=== PATIENT | male | born 1960 | race Caucasian/White ===

== ENCOUNTER 2019-03-13 05:08 | Inpatient (IN) | payer OTHER, SELFPAY ==
[2019-03-13] VITALS (7 sets, daily range): BP systolic 140–175; BP diastolic 84–113; PULSE 55–85; RESP 16–22; TEMP 36.5–37.3; O2SAT 94–99; BMI 24.3; BMI 24.0; BMI 24.4
--- NOTE | 2019-03-13 05:11 | CT_ITS ---
STUDY: CT ABDOMEN AND PELVIS WITH CONTRAST REASON FOR EXAM: Male, 58 years old. Of abdominal pain RADIATION DOSAGE (If Supplied By Facility): CTDIvol = ( 8.82 ) mGy, DLP = ( 607.56 ) mGycm TECHNIQUE: Transaxial images were obtained from the dome of the diaphragm to the symphysis pubis without oral contrast. 100ML IV Isovue 300 was administered. Sagittal and coronal images were reconstructed. Individualized dose optimization techniques were used for this CT. COMPARISON: None. FINDINGS: The visualized lung bases are unremarkable. The visualized portions of the heart are within normal limits. Subcentimeter low-attenuation structure left hepatic lobe too small to characterize by CT criteria however statistically likely represents a cyst. Normal gallbladder and extrahepatic biliary system. Normal spleen. There is peripancreatic stranding and adjacent fluid identified. There is no rim-enhancing fluid collection. Pancreatic head appears prominent. There is no significant ductal dilatation. No pseudocysts identified. Normal bilateral adrenal glands. Normal right kidney. Normal left kidney. There is a small hiatal hernia. Mild bladder wall thickening. No bowel dilatation by CT criteria. Normal colon. The appendix is visualized and appears normal. There is diffuse atherosclerotic calcification of the abdominal aorta, without a demonstrated aneurysm. Normal inferior vena cava. Nonspecific subcentimeter short axis mesenteric and retroperitoneal lymph nodes. Normal urinary bladder. Prostate is heterogeneous and enlarged recommend correlation with PSA values and physical exam on a nonemergent basis. Small fat-containing inguinal hernias. Tiny fat-containing umbilical hernia. There are diffuse degenerative changes of the visualized lumbar spine. CT/Abdomen/Pelvis W IV Cont ONLY IMPRESSION: Pancreatic adjacent fluid and stranding. There is pancreatic edema. Recommend correlation with pancreatic laboratory values for acute pancreatitis. There is no rim-enhancing fluid collections identified. No pseudocysts are seen. Recommend follow-up to ensure resolution. The duodenum demonstrates some mild wall thickening likely reactive to BE associated inflammatory changes surrounding the pancreas. Other findings as above. Electronically Signed: Toño Yanez, at 5:55 EDT Tel , Service support ,
[2019-03-13] MEDS: HYDROmorphone 1 MG/ML Syringe IV ×10 (05:17→22:22)
[2019-03-13] MEDS: Ondansetron 4 MG/2 ML Vial IV ×2 (05:17→14:23)
[2019-03-13] MEDS: 0.9% Normal Saline 1,000 ML 125 ML IV (05:19)
[2019-03-13 05:26] LABS: Absolute Lymphocyte Count 4.83 X10^3/ul (0.83-4.51); Absolute Neutrophil Count 7.5 X10^3/uL (2.0-7.7); Basophil# 0.03 X10^3/uL; Basophil% 0.2 % (0-1); Eosinophil# 0.42 X10^3/uL; Eosinophils% 2.8 % (0-5); Hematocrit 50.8 % (40-54); Hemoglobin 17.2 g/dl (13.0-16.5); Lymphocyte # 4.83 X10^3/ul (4.0); Lymphocyte % 32.7 % (19-41); Mean Corp Hgb Conc 33.9 g/gl (32-36); Mean Corpuscular Hgb 30.4 pg (27.0-32.0); Mean Corpuscular Volume 89.8 fL (80-94); Mean Platelet Vol. 9.9 fl (6.2-12.0); Monocyte% 12.9 % (0-10); Neutrophil # 7.54 X10^3/uL (2.7-7.7); Neutrophil % 51.2 % (47-70); Platelet Count 220 K/mm3 (150-450); RBC Distribution Width CV 13.4 % (11.6-14.6); Red Blood Count 5.66 M/mm3 (4.6-6.2); White Blood Count 14.8 K/mm3 (4.4-11.0)
[2019-03-13 05:28] LABS: Differential Indicated SCAN CRITERIA MET; POSITIVE COUNT NO; POSITIVE DIFFERENTIAL YES; POSITIVE MORPHOLOGY NO
[2019-03-13 05:39] LABS: Anion Gap 8 (5-15); BUN 17 mg/dL (7-18); BUN/Creat Ratio 13.6 RATIO (10-20); Calcium,Total 8.7 mg/dL (8.5-10.1); Chloride 106 mmol/L (98-107); Creatinine, Serum 1.25 mg/dL (0.70-1.30); EST Glomerular Filtration Rate 63 mL/min (>60); Est Glom Filt Rate - Afr Amer 76 mL/min (>60); Estimated Creatinine Clearance 68.61 ml/min; Glucose 152 mg/dL (74-106); Potassium 3.5 mmol/L (3.5-5.1); Sodium Level 142 mmol/L (136-145)
[2019-03-13 05:54] LABS: Lactic Acid 3.4 mmol/L (0.4-2.0)
[2019-03-13 05:58] LABS: AST(SGOT) 23 U/L (15-37); Alanine Aminotransfer ALT/SGPT 41 U/L (16-61); Alkaline Phosphatase 95 U/L (45-117); Bilirubin, Direct 0.09 mg/dL (0.00-0.30); Globulin 3.7 g/dL (2.2-4.2); Protein, Total 7.7 g/dL (6.4-8.2)
--- NOTE | 2019-03-13 06:00 | ED.RN ---
CRITICAL LAB VALUE RECEIVED FROM LAB. LACTIC ACID 3.4. DR. RAMÍREZ NOTIFIED.
--- NOTE | 2019-03-13 06:15 | ED.VISSUMM ---
- ER Visit Summary Date of Service: 03/13/19 Chief Complaint: [Abdominal pain] History of Present Illness: The patient is a 58 M [since the emergency room with complaint of abdominal pain that started about an hour ago. Patient is in severe pain and has a hard time giving much history. Patient complains of nausea and few episodes of vomiting. Said no diarrhea. Denies fever. He is never had pain like this before. Patient describes a lot of bloating and pain that radiates to his back. He denies any pain going down his legs. He denies any fever. Patient has no medical history. He has had prior appendectomy. Patient is a smoker and drinks alcohol occasionally. He denies drink alcohol last night.] Physical Examination: [HEENT-PERRLA, EOMI. Cranial nerves II through XII grossly intact. TMs clear. Mucous membranes moist. No adenopathy. Cardiovascular-regular rate and rhythm without murmur or ectopy Lungs-clear to auscultation, chest wall stable without crepitus or subcu emphysema Abdomen-normoactive bowel sounds abdomen slightly distended. Exam difficult as patient really does not allow for a good abdominal exam. There is guarding. There is no rebound or rigidity. Extremities-intact ?4, normal range of motion, normal pulses, atraumatic] Test Results: [CBC with differential obtained showed a white count of 14.8, hemoglobin 17, hematocrit 51, platelets 220. Chemistries unremarkable. Lactate was elevated 3.4. CT scan of the abdomen pelvis showed acute pancreatitis.] Lipase was elevated at 58,000 Emergency Department Course and Treatment: [Patient was given IV fluids normal saline. Patient was medicated with Dilaudid and Zofran.] Treatment Plan: [Admit for fluids and pain management. Patient continues to complain of severe pain.] Disposition: [Admit] Impression: [Acute pancreatitis Intractable pain] This note was generated with [employer] dictation software. It may contain incorrect words, spelling, and punctuation that were not noted in review of the chart prior to signing ED Disposition - Plan for ED Patient: Referrals: Ziggy Smith MD [Primary Care Provider] -
[2019-03-13 06:27] LABS: Lipase 58008 U/L (73-393)
[2019-03-13] MEDS: 0.9% Normal Saline 1,000 ML 999 ML IV (06:40)
--- NOTE | 2019-03-13 07:24 | PCM.HP.STD ---
Problem List (1) Pancreatitis Status: Acute Qualifiers: Chronicity: acute Pancreatitis type: unspecified pancreatitis type Acute pancreatitis complication: no infection or necrosis Qualified Code(s): K85.90 - Acute pancreatitis without necrosis or infection, unspecified History of Present Illness Date of Admission: 03/13/19 Chief Complaint: abdominal pain The patient is a 58 year old M presents with acute abdominal pain. Abdominal pain is epigastric and began acutely around 330 to 4:00 AM today. Was very exquisite and patient presented to the emergency room. Patient had a lipase of 58,000, CAT scan that showed diffuse pancreatitis without any obvious gallstones. Patient received 4 mg of Dilaudid and still writhing in pain. Patient has never had pancreatitis before. Patient does drink alcohol and stated that he had about 5 or 6 drinks a few days ago. Denies any alcohol consumption last night. [] Past Medical History Allergies No Known Allergies Allergy (Verified 03/13/19 05:15) Surgical History: Surgical History (Last Updated 03/13/19 @ 07:26 by Prince Mckinley DO) S/P appendectomy Z90.49 Smoking Status: Light Smoker (<10/day) Tobacco Use: Cigarettes Alcohol: Occasional Drugs: Marijuana - occasional - *Family History Paternal Family History: Family History (Last Updated 03/13/19 @ 07:27 by Prince Mckinley DO) Father Myocardial infarction Review of Systems Constitutional: Reports: Chills. Denies: Anorexia, Fever Eyes: Denies: Blurred vision, Double vision HEENT: Denies: Head Aches, Sinus Congestion, Sinus Drainage Cardiovascular: Denies: Chest Pain, Palpitations Respiratory: Denies: Cough, Shortness of breath at rest, Sputum production Gastrointestinal: Reports: Abdominal Pain, Nausea, Vomiting. Denies: Diarrhea Comment: Unable to adequately obtain review systems because patient is writhing in pain and despite numerous questions and repeating the questions, patient is not answering questions to do his distress. VTE Information - Inpt Only VTE Present on Admission: No VTE Mechan Device Prophylaxis: None VTE Pharm Prophylaxis ordered?: Yes Patient Problems: Active and Suspected Problems Pancreatitis (Acute) - Physical Exam General: Alert, - - Anxious. Writhing in pain. Was yelling out and moaning. HEENT: Atraumatic, Normocephalic Neck: No Nodes, Thyroid Normal Size and Texture Lungs: Clear to auscultation, Normal air movement, No rhonchi, No wheeze Cardiovascular: Regular rate, Regular Rhythm, Normal S1, Normal S2, No murmurs Abdomen: - - Guarding. Abdominal muscles are very taut and tense. After asking the patient to relax a little bit he was still unable to do so. Diffusely tender but patient was not in a good state to let me to do an adequate abdominal exam. Extremities: No edema, No Calf Tenderness Skin: No rashes, No breakdown Musculoskeletal: No Tenderness to Palpation of Joints or Extremities, No Muscle Wasting Neurological: Deep Tendon Reflexes 2+/4 and Symmetrical, - - No clonus Psych/Mental Status: Agitated, Anxious Vital Signs Temp Pulse Resp BP Pulse Ox 36.7 C 74 20 H 140/93 H 98 03/13/19 06:41 03/13/19 06:41 03/13/19 06:41 03/13/19 06:41 03/13/19 06:41 Oxygen Delivery Method Room Air Weight: 79.3 kg Body Mass Index (BMI) 24.3 Laboratory Tests Past 24 Hrs 03/13/19 03/13/19 03/13/19 05:15 05:15 05:15 WBC 14.8 H RBC 5.66 Hgb 17.2 H Hct 50.8 MCV 89.8 MCH 30.4 MCHC 33.9 RDW 13.4 RDW Differential 44.0 H Plt Count 220 MPV 9.9 Immature Gran % (Auto) 0.200 Neut % (Auto) 51.2 Lymph % (Auto) 32.7 [place] % (Auto) 12.9 H Eos % (Auto) 2.8 Baso % (Auto) 0.2 Absolute Neuts (auto) 7.5 Absolute Lymphs (auto) 4.83 H Total Counted Not Reportable Differential Comment Diff Path Review May foll Sodium 142 Potassium 3.5 Chloride 106 Carbon Dioxide 28.0 Anion Gap 8 BUN 17 Creatinine 1.25 Estim Creat Clear Calc 68.61 Est GFR (MDRD) Af Amer 76 Est GFR (MDRD) Non-Af 63 BUN/Creatinine Ratio 13.6 Glucose 152 H Lactic Acid 3.4 H Calcium 8.7 Total Bilirubin Direct Bilirubin AST ALT Alkaline Phosphatase Total Protein Albumin Globulin Lipase 03/13/19 03/13/19 05:15 05:15 WBC RBC Hgb Hct MCV MCH MCHC RDW RDW Differential Plt Count MPV Immature Gran % (Auto) Neut % (Auto) Lymph % (Auto) [place] % (Auto) Eos % (Auto) Baso % (Auto) Absolute Neuts (auto) Absolute Lymphs (auto) Total Counted Differential Comment Diff Path Review Sodium Potassium Chloride Carbon Dioxide Anion Gap BUN Creatinine Estim Creat Clear Calc Est GFR (MDRD) Af Amer Est GFR (MDRD) Non-Af BUN/Creatinine Ratio Glucose Lactic Acid Calcium Total Bilirubin 0.40 Direct Bilirubin 0.09 AST 23 ALT 41 Alkaline Phosphatase 95 Total Protein 7.7 Albumin 4.0 Globulin 3.7 Lipase 13829 H Clinical Impression(s) from Imaging Studies Abdomen/Pelvis CT 03/13/19 05:11 IMPRESSION: Pancreatic adjacent fluid and stranding. There is pancreatic edema. Recommend correlation with pancreatic laboratory values for acute pancreatitis. There is no rim-enhancing fluid collections identified. No pseudocysts are seen. Recommend follow-up to ensure resolution. The duodenum demonstrates some mild wall thickening likely reactive to BE associated inflammatory changes surrounding the pancreas. Other findings as above. Electronically Signed: Toño Yanez, at 5:55 EDT Tel , Service support , Assessment/Plan All Active Problems Pancreatitis (Acute) 1. Acute pancreatitis May be due to alcohol as patient did consume roughly 6 beers to 3 days prior. Though did begin acutely which also is concerning for gallstones, though the CAT scan did not show any evidence of any gallstones. We will check an ultrasound to see if there is any gallstones or biliary sludge that may potentially be causing his pancreatitis Current treatment will be for adequate analgesia which patient still is writhing in pain despite 4 mg of Dilaudid. We will continue with IV Dilaudid, antiemetics and IV fluids at 250 cc/h. 2. DVT proph: LMWH. Code Visit Inpatient E&M: 08367 Init Hosp L3
--- NOTE | 2019-03-13 07:29 | HP.PCM_ITS ---
Problem List (1) Pancreatitis Status: Acute Qualifiers: Chronicity: acute Pancreatitis type: unspecified pancreatitis type Acute pancreatitis complication: no infection or necrosis Qualified Code(s): K85.90 - Acute pancreatitis without necrosis or infection, unspecified History of Present Illness Date of Admission: 03/13/19 Chief Complaint: abdominal pain The patient is a 58 year old M presents with acute abdominal pain. Abdominal pain is epigastric and began acutely around 330 to 4:00 AM today. Was very exquisite and patient presented to the emergency room. Patient had a lipase of 58,000, CAT scan that showed diffuse pancreatitis without any obvious gallstones. Patient received 4 mg of Dilaudid and still writhing in pain. Sandra ent has never had pancreatitis before. Patient does drink alcohol and stated that he had about 5 or 6 drinks a few days ago. Denies any alcohol consumption last night. [] Past Medical History Allergies No Known Allergies Allergy (Verified 03/13/19 05:15) Surgical History: Surgical History (Last Updated 03/13/19 @ 07:26 by Prince Mckinley DO) S/P appendectomy Z90.49 Smoking Status: Light Smoker (<10/day) Tobacco Use: Cigarettes Alcohol: Occasional Drugs: Marijuana - occasional - *Family History Paternal Family History: Family History (Last Updated 03/13/19 @ 07:27 by Prince Mckinley DO) Father Myocardial infarction Review of Systems Constitutional: Reports: Chills. Denies: Anorexia, Fever Eyes: Denies: Blurred vision, Double vision HEENT: Denies: Head Aches, Sinus Congestion, Sinus Drainage Cardiovascular: Denies: Chest Pain, Palpitations Respiratory: Denies: Cough, Shortness of breath at rest, Sputum production Gastrointestinal: Reports: Abdominal Pain, Nausea, Vomiting. Denies: Diarrhea Comment: Unable to adequately obtain review systems because patient is writhing in pain and despite numerous questions and repeating the questions, patient is not answering questions to do his distress. VTE Information - Inpt Only VTE Present on Admission: No VTE Mechan Device Prophylaxis: None VTE Pharm Prophylaxis ordered?: Yes Patient Problems: Active and Suspected Problems Pancreatitis (Acute) - Physical Exam General: Alert, - - Anxious. Writhing in pain. Was yelling out and moaning. HEENT: Atraumatic, Normocephalic Neck: No Nodes, Thyroid Normal Size and Texture Lungs: Clear to auscultation, Normal air movement, No rhonchi, No wheeze Cardiovascular: Regular rate, Regular Rhythm, Normal S1, Normal S2, No murmurs Abdomen: - - Guarding. Abdominal muscles are very taut and tense. After asking the patient to relax a little bit he was still unable to do so. Diffusely tender but patient was not in a good state to let me to do an adequate abdominal exam. Extremities: No edema, No Calf Tenderness Skin: No rashes, No breakdown Musculoskeletal: No Tenderness to Palpation of Joints or Extremities, No Muscle Wasting Neurological: Deep Tendon Reflexes 2+/4 and Symmetrical, - - No clonus Psych/Mental Status: Agitated, Anxious Vital Signs Temp Pulse Resp BP Pulse Ox 36.7 C 74 20 H 140/93 H 98 03/13/19 06:41 03/13/19 06:41 03/13/19 06:41 03/13/19 06:41 03/13/19 06:41 Oxygen Delivery Method Room Air Weight: 79.3 kg Body Mass Index (BMI) 24.3 Laboratory Tests Past 24 Hrs 03/13/19 03/13/19 03/13/19 05:15 05:15 05:15 WBC 14.8 H RBC 5.66 Hgb 17.2 H Hct 50.8 MCV 89.8 MCH 30.4 MCHC 33.9 RDW 13.4 RDW Differential 44.0 H Plt Count 220 MPV 9.9 Immature Gran % (Auto) 0.200 Neut % (Auto) 51.2 Lymph % (Auto) 32.7 [place] % (Auto) 12.9 H Eos % (Auto) 2.8 Baso % (Auto) 0.2 Absolute Neuts (auto) 7.5 Absolute Lymphs (auto) 4.83 H Total Counted Not Reportable Differential Comment Diff Path Review May foll Sodium 142 Potassium 3.5 Chloride 106 Carbon Dioxide 28.0 Anion Gap 8 BUN 17 Creatinine 1.25 Estim Creat Clear Calc 68.61 Est GFR (MDRD) Af Amer 76 Est GFR (MDRD) Non-Af 63 BUN/Creatinine Ratio 13.6 Glucose 152 H Lactic Acid 3.4 H Calcium 8.7 Total Bilirubin Direct Bilirubin AST ALT Alkaline Phosphatase Total Protein Albumin Globulin Lipase 03/13/19 03/13/19 05:15 05:15 WBC RBC Hgb Hct MCV MCH MCHC RDW RDW Differential Plt Count MPV Immature Gran % (Auto) Neut % (Auto) Lymph % (Auto) [place] % (Auto) Eos % (Auto) Baso % (Auto) Absolute Neuts (auto) Absolute Lymphs (auto) Total Counted Differential Comment Diff Path Review Sodium Potassium Chloride Carbon Dioxide Anion Gap BUN Creatinine Estim Creat Clear Calc Est GFR (MDRD) Af Amer Est GFR (MDRD) Non-Af BUN/Creatinine Ratio Glucose Lactic Acid Calcium Total Bilirubin 0.40 Direct Bilirubin 0.09 AST 23 ALT 41 Alkaline Phosphatase 95 Total Protein 7.7 Albumin 4.0 Globulin 3.7 Lipase 81195 H Clinical Impression(s) from Imaging Studies Abdomen/Pelvis CT 03/13/19 05:11 IMPRESSION: Pancreatic adjacent fluid and stranding. There is pancreatic edema. Recommend correlation with pancreatic laboratory values for acute pancreatitis. There is no rim-enhancing fluid collections identified. No pseudocysts are seen. Recommend follow-up to ensure resolution. The duodenum demonstrates some mild wall thickening likely reactive to BE associated inflammatory changes surrounding the pancreas. Other findings as above. Electronically Signed: Toño Yanez, at 5:55 EDT Tel , Service support , Assessment/Plan All Active Problems Pancreatitis (Acute) 1. Acute pancreatitis * May be due to alcohol as patient did consume roughly 6 beers to 3 days prior. * Though did begin acutely which also is concerning for gallstones, though the CAT scan did not show any evidence of any gallstones. * We will check an ultrasound to see if there is any gallstones or biliary sludge that may potentially be causing his pancreatitis * Current treatment will be for adequate analgesia which patient still is writhing in pain despite 4 mg of Dilaudid. We will continue with IV Dilaudid, antiemetics and IV fluids at 250 cc/h. 2. DVT proph: LMWH. Code Visit Inpatient E&M: 80543 Init Hosp L3
[2019-03-13] MEDS: HYDROmorphone 0.5 MG/0.5 ML SYRINGE IV (07:39)
--- NOTE | 2019-03-13 08:08 | US_ITS ---
STUDY: ABDOMINAL ULTRASOUND - RIGHT UPPER QUADRANT REASON FOR VISIT: Male, 58 years old. Pain TECHNIQUE: Ultrasound evaluation of the right upper quadrant was performed with real-time and static hilario-scale imaging. TECHNICAL QUALITY: Limited COMPARISON: None. FINDINGS: Liver: The liver measures 14 cm. There is normal echogenicity of the liver. The bile ducts are within normal limits. There is hepatic color flow. The direction of portal flow is hepatopetal. There is no demonstrated mass lesion. Gallbladder: Normal distended gallbladder. The gallbladder wall measures 4 mm. There is a negative sonographic Perales's sign. There is no pericholecystic fluid. There are no gallstones. Adherent sludge versus polyp present. Common Bile Duct (C.B.D.): Not seen Pancreas: Not seen Right Kidney: Not seen US/Abdomen Limited IMPRESSION: Limited evaluation without acute pathology identified. Adherent sludge versus polyp in the gallbladder, not well assessed. Electronically Signed: Mook Mclean, at 10:43 EDT Tel , Service support ,
[2019-03-13] MEDS: Ketorolac 30 MG/ML Syringe IV ×3 (09:16→21:57)
[2019-03-13 09:21] LABS: Reflex Lactate? Y
--- NOTE | 2019-03-13 10:22 | CM.UR ---
Tried to see patient to complete assessment at 9:45 and again at 10am however he was sleeping. He came in through the night so did not wake him at those times. Ignacio Carmen RN, CCM.
[2019-03-13 10:55] LABS: Lactic Acid 2.7 mmol/L (0.4-2.0)
[2019-03-13] MEDS: 0.9% Normal Saline 1,000 ML 250 ML IV ×3 (13:19→22:00)
[2019-03-13 23:19] LABS: Color, Urine Yellow (Yellow); Glucose, Dipstick 100 mg/dl (Normal); Ketone-Dipstick 5 mg/dl (Negative); Leukocyte Esterase-Dipstick Negative /ul (Negative); Nitrite-Dipstick Negative (Negative); Occult Blood-Urine 25 /ul (Negative); Protein-Dipstick 30 mg/dl (Negative); Urine Bilirubin Dipstick Negative (Negative); Urine Clarity Clear (Clear); Urine Urobilinogen Normal (Normal)
[2019-03-13 23:35] LABS: Bacteria RARE /hpf (None Seen); Mucous, Urine 1+ /hpf (<or=2+); Red Blood Cells-Urine 0-5 SEEN /hpf (0-5); Squamous Epithelial Cells - UA 0-5 SEEN /hpf (0-5); White Blood Cells 0-5 SEEN /hpf (0-5)
[2019-03-14] MEDS: HYDROmorphone 1 MG/ML Syringe IV ×6 (00:23→20:21)
[2019-03-14 00:37] VITALS: BP 132/82; PULSE 73; RESP 18; TEMP 36.9; O2SAT 95
[2019-03-14] MEDS: 0.9% Normal Saline 1,000 ML 250 ML IV ×6 (02:07→23:24)
[2019-03-14 02:13] VITALS: BP 125/66; PULSE 73; RESP 18; TEMP 36.6; O2SAT 95
[2019-03-14] MEDS: Ketorolac 30 MG/ML Syringe IV ×3 (04:10→20:45)
[2019-03-14 07:47] LABS: AST(SGOT) 41 U/L (15-37); Alanine Aminotransfer ALT/SGPT 33 U/L (16-61); Albumin, Serum 2.9 g/dL (3.2-5.0); Alkaline Phosphatase 52 U/L (45-117); Anion Gap 6 (5-15); BUN 17 mg/dL (7-18); BUN/Creat Ratio 19.9 RATIO (10-20); Chloride 116 mmol/L (98-107); Creatinine, Serum 0.85 mg/dL (0.70-1.30); EST Glomerular Filtration Rate 98 mL/min (>60); Est Glom Filt Rate - Afr Amer 118 mL/min (>60); Estimated Creatinine Clearance 100.89 ml/min; Globulin 2.9 g/dL (2.2-4.2); Glucose 116 mg/dL (74-106); Lipase 8614 U/L (73-393); Potassium 3.9 mmol/L (3.5-5.1); Protein, Total 5.8 g/dL (6.4-8.2); Sodium Level 145 mmol/L (136-145)
--- NOTE | 2019-03-14 08:47 | PCM.PN.HOSP ---
Patient Problems: Active and Suspected Problems Pancreatitis (Acute) Subjective: Still having a lot of abdominal pain. Wants to drink something, but states that even taking in ice bothers his stomach. Vitals/I&O's: Vital Signs Temp Pulse Resp BP Pulse Ox 36.6 C 73 18 125/66 H 95 03/14/19 02:13 03/14/19 02:13 03/14/19 02:13 03/14/19 02:13 03/14/19 02:13 Oxygen Flow Rate (L/min) 96 Oxygen Delivery Method Room Air Weight: 79.38 kg Body Mass Index (BMI) 24.4 Intake and Output for Last 24 Hours 03/12/19 03/13/19 03/14/19 23:59 23:59 23:59 Intake Total 3448 / 3448 605 / 605 Output Total 600 / 600 225 / 225 Balance 2848 / 2848 380 / 380 General: Alert, - - conversant, uncomfortable, but not writhing in pain. HEENT: Atraumatic, Normocephalic Oral: Moist Mucosa, No Gingival or Mucosal Lesions/ Ulcerations Neck: No Nodes, Thyroid Normal Size and Texture Lungs: Clear to auscultation, Normal air movement, No rhonchi, No wheeze Cardiovascular: Regular rate, Regular Rhythm, Normal S1, Normal S2, No murmurs Abdomen: Bowel Sounds Present, Soft, Non Tender, Non-Distended, No Hepato-splenomegaly Extremities: No edema, No Calf Tenderness Skin: No rashes, No breakdown Psych/Mental Status: Normal Affect, Appropriate Laboratory Results 03/13/19 09:21: Lactic Acid 2.7 H 03/13/19 22:55: Urine Color Yellow, Urine Clarity Clear, Urine pH 5.0, Ur Specific [place] 1.020, Urine Protein 30 H, Urine Glucose (UA) 100 H, Urine Ketones 5 H, Urine Occult Blood 25 H, Urine Nitrite Negative, Urine Bilirubin Negative, Urine Urobilinogen Normal, Ur Leukocyte Esterase Negative, Urine RBC 0-5 SEEN, Urine WBC 0-5 SEEN, Ur Squamous Epith Cells 0-5 SEEN, Urine Bacteria RARE, Urine Mucus 1+ 03/14/19 05:35: Sodium 145, Potassium 3.9, Chloride 116 H, Carbon Dioxide 23.0, Anion Gap 6, BUN 17, Creatinine 0.85, Estim Creat Clear Calc 100.89, Est GFR (MDRD) Af Amer 118, Est GFR (MDRD) Non-Af 98, BUN/Creatinine Ratio 19.9, Glucose 116 H, Calcium 7.0 L, Total Bilirubin 0.70, AST 41 H, ALT 33, Alkaline Phosphatase 52, Total Protein 5.8 L, Albumin 2.9 L, Globulin 2.9, Albumin/Globulin Ratio 1.0, Lipase 8614 H Current Medications Dextrose (D50w Syringe) 0 gm IV X1 PRN; Protocol PRN Reason: Hypoglycemia Enoxaparin Sodium (Lovenox) 40 mg SC DAILY@1000 NEIL Last Admin: 03/13/19 09:29 Dose: Not Given Glucagon () 1 mg IM .X1 PRN PRN Reason: Hypoglycemia Hydromorphone HCl (Dilaudid Inj) 1 mg IV Q2H PRN PRN PRN Reason: Severe pain (7-08/05) Stop: 03/14/19 13:10 Last Admin: 03/14/19 04:16 Dose: 1 mg Hydromorphone HCl (Dilaudid Inj) 1 mg IV Q3H PRN PRN PRN Reason: SEVERE PAIN (6-08/05) Sodium Chloride () 1,000 mls @ 250 mls/hr IV .Q4H NEIL Last Admin: 03/14/19 06:35 Dose: 250 mls/hr Ketorolac Tromethamine (Toradol) 30 mg IV Q6H PRN PRN PRN Reason: PAIN Stop: 03/18/19 09:10 Last Admin: 03/14/19 04:10 Dose: 30 mg Ondansetron HCl (Zofran) 4 mg IV Q8H PRN PRN PRN Reason: NAUSEA/VOMITING Last Admin: 03/13/19 14:23 Dose: 4 mg Medical Necessity - Tobacco Use Smoking Status: Light Smoker (<10/day) Tobacco Use: Cigarettes Assessment/Plan All Active Problems Pancreatitis (Acute) 1. Acute pancreatitis improved May be due to alcohol as patient did consume roughly 6 beers to 3 days prior. Though did begin acutely which also is concerning for gallstones, though the CAT scan did not show any evidence of any gallstones. US limited. CBD not seen. Current treatment will be for adequate analgesia which patient still is writhing in pain despite 4 mg of Dilaudid. We will continue with IV Dilaudid, antiemetics and IV fluids at 250 cc/h. add PPI advance diet to clears 2. DVT proph: LMWH. Code Visit Inpatient E&M: 60758 Subs Hosp L2
--- NOTE | 2019-03-14 08:51 | PN_ITS ---
Patient Problems: Active and Suspected Problems Pancreatitis (Acute) Subjective: Still having a lot of abdominal pain. Wants to drink something, but states that even taking in ice bothers his stomach. Vitals/I&O's: Vital Signs Temp Pulse Resp BP Pulse Ox 36.6 C 73 18 125/66 H 95 03/14/19 02:13 03/14/19 02:13 03/14/19 02:13 03/14/19 02:13 03/14/19 02:13 Oxygen Flow Rate (L/min) 96 Oxygen Delivery Method Room Air Weight: 79.38 kg Body Mass Index (BMI) 24.4 Intake and Output for Last 24 Hours 03/12/19 03/13/19 03/14/19 23:59 23:59 23:59 Intake Total 3448 / 3448 605 / 605 Output Total 600 / 600 225 / 225 Balance 2848 / 2848 380 / 380 General: Alert, - - conversant, uncomfortable, but not writhing in pain. HEENT: Atraumatic, Normocephalic Oral: Moist Mucosa, No Gingival or Mucosal Lesions/ Ulcerations Neck: No Nodes, Thyroid Normal Size and Texture Lungs: Clear to auscultation, Normal air movement, No rhonchi, No wheeze Cardiovascular: Regular rate, Regular Rhythm, Normal S1, Normal S2, No murmurs Abdomen: Bowel Sounds Present, Soft, Non Tender, Non-Distended, No Hepato- splenomegaly Extremities: No edema, No Calf Tenderness Skin: No rashes, No breakdown Psych/Mental Status: Normal Affect, Appropriate Laboratory Results 03/13/19 09:21: Lactic Acid 2.7 H 03/13/19 22:55: Urine Color Yellow, Urine Clarity Clear, Urine pH 5.0, Ur Specific [place] 1.020, Urine Protein 30 H, Urine Glucose (UA) 100 H, Urine Ketones 5 H, Urine Occult Blood 25 H, Urine Nitrite Negative, Urine Bilirubin Negative, Urine Urobilinogen Normal, Ur Leukocyte Esterase Negative, Urine RBC 0-5 SEEN, Urine WBC 0-5 SEEN, Ur Squamous Epith Cells 0-5 SEEN, Urine Bacteria RARE, Urine Mucus 1+ 03/14/19 05:35: Sodium 145, Potassium 3.9, Chloride 116 H, Carbon Dioxide 23.0, Anion Gap 6, BUN 17, Creatinine 0.85, Estim Creat Clear Calc 100.89, Est GFR (MDRD) Af Amer 118, Est GFR (MDRD) Non-Af 98, BUN/Creatinine Ratio 19.9, Glucose 116 H, Calcium 7.0 L, Total Bilirubin 0.70, AST 41 H, ALT 33, Alkaline Phosphatase 52, Total Protein 5.8 L, Albumin 2.9 L, Globulin 2.9, Albumin/Globulin Ratio 1.0, Lipase 8614 H Current Medications Dextrose (D50w Syringe) 0 gm IV X1 PRN; Protocol PRN Reason: Hypoglycemia Enoxaparin Sodium (Lovenox) 40 mg SC DAILY@1000 NEIL Last Admin: 03/13/19 09:29 Dose: Not Given Glucagon () 1 mg IM .X1 PRN PRN Reason: Hypoglycemia Hydromorphone HCl (Dilaudid Inj) 1 mg IV Q2H PRN PRN PRN Reason: Severe pain (7-08/05) Stop: 03/14/19 13:10 Last Admin: 03/14/19 04:16 Dose: 1 mg Hydromorphone HCl (Dilaudid Inj) 1 mg IV Q3H PRN PRN PRN Reason: SEVERE PAIN (6-08/05) Sodium Chloride () 1,000 mls @ 250 mls/hr IV .Q4H NEIL Last Admin: 03/14/19 06:35 Dose: 250 mls/hr Ketorolac Tromethamine (Toradol) 30 mg IV Q6H PRN PRN PRN Reason: PAIN Stop: 03/18/19 09:10 Last Admin: 03/14/19 04:10 Dose: 30 mg Ondansetron HCl (Zofran) 4 mg IV Q8H PRN PRN PRN Reason: NAUSEA/VOMITING Last Admin: 03/13/19 14:23 Dose: 4 mg Medical Necessity - Tobacco Use Smoking Status: Light Smoker (<10/day) Tobacco Use: Cigarettes Assessment/Plan All Active Problems Pancreatitis (Acute) 1. Acute pancreatitis * improved * May be due to alcohol as patient did consume roughly 6 beers to 3 days prior. * Though did begin acutely which also is concerning for gallstones, though the CAT scan did not show any evidence of any gallstones. * US limited. CBD not seen. * Current treatment will be for adequate analgesia which patient still is writhing in pain despite 4 mg of Dilaudid. We will continue with IV Dilaudid, antiemetics and IV fluids at 250 cc/h. * add PPI * advance diet to clears 2. DVT proph: LMWH. Code Visit Inpatient E&M: 21412 Subs Hosp L2
[2019-03-14] MEDS: Enoxaparin 40 MG/0.4 ML Syringe SC (08:53)
[2019-03-14 08:57] VITALS: BP 147/92; PULSE 75; RESP 18; TEMP 37.1; O2SAT 95
[2019-03-14 14:25] VITALS: BP 133/90; PULSE 75; RESP 20; TEMP 37.6; O2SAT 98
--- NOTE | 2019-03-14 16:44 | NURSING ---
at 1500, pt encouraged by this nurse to take a walk in halls since he had been in bed all day. After some encouragement, pt did get up and slowly walked halls with this nurse. Took a folded blanket and guarded stomach with it to help with the pain. Pt was able to walk in camacho and then stand up for approximately 5 min while this nurse stripped bed linen off bed and made bed with fresh clean linen.
[2019-03-14] MEDS: 0.9% NaCl Peripheral Flush Adult/Peds IV (17:14)
[2019-03-14 20:02] VITALS: BP 132/86; PULSE 78; RESP 22; TEMP 36.9; O2SAT 95
[2019-03-15 00:04] VITALS: BP 123/75; PULSE 74; RESP 22; TEMP 36.8; O2SAT 95
[2019-03-15] MEDS: HYDROmorphone 1 MG/ML Syringe IV ×7 (00:23→22:15)
--- NOTE | 2019-03-15 00:31 | NURSING ---
2030 Patient ambulated 2 laps around unit with standby assist. 0000 Patient ambulated 1 lap around unit with standby assist.
[2019-03-15] MEDS: Ketorolac 30 MG/ML Syringe IV ×2 (02:36→17:27)
[2019-03-15] MEDS: 0.9% Normal Saline 1,000 ML 250 ML IV ×5 (03:20→21:21)
[2019-03-15 03:37] VITALS: BP 131/91; PULSE 69; RESP 24; TEMP 37.6; O2SAT 94
[2019-03-15 06:15] LABS: Anion Gap 6 (5-15); BUN 15 mg/dL (7-18); BUN/Creat Ratio 19.5 RATIO (10-20); Calcium,Total 6.8 mg/dL (8.5-10.1); Chloride 118 mmol/L (98-107); Creatinine, Serum 0.77 mg/dL (0.70-1.30); EST Glomerular Filtration Rate 110 mL/min (>60); Est Glom Filt Rate - Afr Amer 133 mL/min (>60); Estimated Creatinine Clearance 111.37 ml/min; Glucose 97 mg/dL (74-106); Lipase 2862 U/L (73-393); Potassium 3.3 mmol/L (3.5-5.1); Sodium Level 146 mmol/L (136-145)
[2019-03-15] MEDS: 0.9% NaCl Peripheral Flush Adult/Peds IV ×6 (07:43→22:14)
--- NOTE | 2019-03-15 08:59 | PN_ITS ---
Patient Problems: Active and Suspected Problems Pancreatitis (Acute) Subjective: Patient is a 58-year-old gentleman with history of intermittent alcohol use who presented with severe abdominal pain. Patient was found to have pancreatitis with lipase levels of [address] of the abdomen and pelvis obtained also demonstrated pancreatic edema consistent with acute pancreatitis admitted to regular nursing floor for conservative management 03/15/2019 patient seen still complains of significant abdominal pain and tenderness has not been able to tolerate any oral diet no liquid. Objective: GENERAL: cooperative, appears ill looking HEENT: Atraumatic; moist oral mucosa EYES; Anicteric, Normal Conjunctiva NECK; supple, normal thyroid, no distended JVD. RESPIRATORY: Diminished to auscultation bilaterally, CARDIOVASCULAR: Regular S1 S2, no audible murmurs GI: Severe epigastric tenderness : No Renal angle tenderness; EXTREMITIES: No edema, no clubbing, no cyanosis. MUSCULOSKELETAL: No Joint Tenderness; NEURO: Awake; no lateralizing signs. SKIN: No Rash PSYCH; Normal affect Vitals/I&O's: Vital Signs Temp Pulse Resp BP Pulse Ox 99.6 F H 69 24 H 131/91 H 94 03/15/19 03:37 03/15/19 03:37 03/15/19 03:37 03/15/19 03:37 03/15/19 03:37 Oxygen Flow Rate (L/min) 2 Oxygen Delivery Method Room Air Weight: 79.38 kg Body Mass Index (BMI) 24.4 Intake and Output for Last 24 Hours 03/13/19 03/14/19 03/15/19 23:59 23:59 23:59 Intake Total 3448 / 3448 4693 / 4693 1649 / 1649 Output Total 600 / 600 1125 / 1125 150 / 150 Balance 2848 / 2848 3568 / 3568 1499 / 1499 Laboratory Results 03/15/19 05:18: Sodium 146 H, Potassium 3.3 L, Chloride 118 H, Carbon Dioxide 22.0, Anion Gap 6, BUN 15, Creatinine 0.77, Estim Creat Clear Calc 111.37, Est GFR (MDRD) Af Amer 133, Est GFR (MDRD) Non-Af 110, BUN/Creatinine Ratio 19.5, Glucose 97, Calcium 6.8 L, Lipase 2862 H Current Medications Dextrose (D50w Syringe) 0 gm IV X1 PRN; Protocol PRN Reason: Hypoglycemia Enoxaparin Sodium (Lovenox) 40 mg SC DAILY@1000 NEIL Last Admin: 03/14/19 08:53 Dose: 40 mg Glucagon () 1 mg IM .X1 PRN PRN Reason: Hypoglycemia Hydromorphone HCl (Dilaudid Inj) 1 mg IV Q3H PRN PRN PRN Reason: SEVERE PAIN (6-10/10) Last Admin: 03/15/19 07:43 Dose: 1 mg Sodium Chloride () 1,000 mls @ 250 mls/hr IV .Q4H NEIL Last Admin: 03/15/19 07:41 Dose: 250 mls/hr Pantoprazole Sodium 40 mg/ (Sodium Chloride) 110 mls @ 330 mls/hr IV Q24 NEIL Last Admin: 03/14/19 10:02 Dose: 330 mls/hr Ketorolac Tromethamine (Toradol) 30 mg IV Q6H PRN PRN PRN Reason: PAIN Stop: 03/18/19 09:10 Last Admin: 03/15/19 02:36 Dose: 30 mg Ondansetron HCl (Zofran) 4 mg IV Q8H PRN PRN PRN Reason: NAUSEA/VOMITING Last Admin: 03/13/19 14:23 Dose: 4 mg Sodium Chloride () 5 - 15 ml IV UD PRN PRN Reason: SALINE FLUSH Last Admin: 03/15/19 07:43 Dose: 10 ml Medical Necessity - Tobacco Use Smoking Status: Light Smoker (<10/day) Tobacco Use: Cigarettes Assessment/Plan All Active Problems Pancreatitis (Acute) Patient is a 58-year-old gentleman with history of intermittent alcohol use who presented with severe abdominal pain. Patient was found to have pancreatitis wi th lipase levels of [address] of the abdomen and pelvis obtained also demonstrated pancreatic edema consistent with acute pancreatitis admitted to regular nursing floor for conservative management 1. Acute pancreatitis: Suspected to be secondary to alcohol induced: Patient has been admitted to regular nursing floor for conservative management with pain meds, antinausea medication and bowel rest. 2. Acute duodenitis; patient is on PPI 3. Alcohol abuse: Counseled on cessation 4. Tobacco dependence counseled on cessation, offered nicotine patch for tobacco cravings 5. DVT prophylaxis SC Lovenox Active Medications Dextrose (D50w Syringe) 0 gm IV X1 PRN; Protocol PRN Reason: Hypoglycemia Enoxaparin Sodium (Lovenox) 40 mg SC DAILY@1000 NEIL Last Admin: 03/15/19 09:43 Dose: 40 mg Glucagon () 1 mg IM .X1 PRN PRN Reason: Hypoglycemia Hydromorphone HCl (Dilaudid Inj) 1 mg IV Q3H PRN PRN PRN Reason: SEVERE PAIN (6-10/10) Last Admin: 03/15/19 10:37 Dose: 1 mg Sodium Chloride () 1,000 mls @ 250 mls/hr IV .Q4H NEIL Last Admin: 03/15/19 07:41 Dose: 250 mls/hr Pantoprazole Sodium 40 mg/ (Sodium Chloride) 110 mls @ 330 mls/hr IV Q24 NEIL Last Admin: 03/15/19 09:43 Dose: 330 mls/hr Ketorolac Tromethamine (Toradol) 30 mg IV Q6H PRN PRN PRN Reason: PAIN Stop: 03/18/19 09:10 Last Admin: 03/15/19 02:36 Dose: 30 mg Ondansetron HCl (Zofran) 4 mg IV Q8H PRN PRN PRN Reason: NAUSEA/VOMITING Last Admin: 03/13/19 14:23 Dose: 4 mg Sodium Chloride () 5 - 15 ml IV UD PRN PRN Reason: SALINE FLUSH Last Admin: 03/15/19 10:37 Dose: 10 ml Clinical Impression(s) from Imaging Studies Abdomen/Pelvis CT 03/13/19 05:11 IMPRESSION: Pancreatic adjacent fluid and stranding. There is pancreatic edema. Recommend correlation with pancreatic laboratory values for acute pancreatitis. There is no rim-enhancing fluid collections identified. No pseudocysts are seen. Recommend follow-up to ensure resolution. The duodenum demonstrates some mild wall thickening likely reactive to BE associated inflammatory changes surrounding the pancreas. Other findings as above. Electronically Signed: Toño Yanez, at 5:55 EDT Tel , Service support , Abdomen Ultrasound 03/13/19 08:08 IMPRESSION: Limited evaluation without acute pathology identified. Adherent sludge versus polyp in the gallbladder, not well assessed. Electronically Signed: Mook Mclean, at 10:43 EDT Tel , Service support , Code Visit Inpatient E&M: 59625 Subs Hosp L3
[2019-03-15 09:30] VITALS: BP 130/92; PULSE 68; RESP 18; TEMP 36.9; O2SAT 94
[2019-03-15] MEDS: Enoxaparin 40 MG/0.4 ML Syringe SC (09:43)
--- NOTE | 2019-03-15 11:39 | NURSING ---
PT RESTING IN BED WITH EYES CLOSED, RESP EASY
--- NOTE | 2019-03-15 12:52 | CASEMGMT ---
RN CM Assessment Presentation: Pancreatitis. Abd pain, Lipase 58,000. Intro role of CM and purpose of RN CM assessment. Demographics, PCP and Pharmacy verified. Pt is irritable, states he is not feeling well but agreeable to answering assessment questions. PCP: Dr. Smith Preferred Pharmacy: [facility] Insurance:MMO TPA Prescription Benefit: yes LNOK: Brother, maame Cheney and Sister Gogo Mao Living Arrangements: Lives independently. Denies care needs. Transportation: Drives DME: none HHC: none SW: Possible ETOH abuse. Pt states they're blaming this on drinking, but I think that's an excuse. RN CM inquired if pt drinks everyday, he stated no. Asked how much pt has per week, Pt avoided question and stated it doesn't matter, that's just an excuse. -ELIZABETH Grace updated on above. Patient DC goals: Home DC PLAN: Home on dc Fred JIMÉNEZ RN ACM
[2019-03-15 14:21] VITALS: BP 144/91; PULSE 70; RESP 18; TEMP 37.1; O2SAT 98
[2019-03-15 20:12] VITALS: BP 137/82; PULSE 69; RESP 20; TEMP 37.4; O2SAT 93
[2019-03-15 20:14] VITALS: PULSE 62
--- NOTE | 2019-03-15 21:19 | NURSING ---
Faustina SHEEHAN reported to me that when pt transferred from chair to bed that he felt cold & SOB. Pt has a hx of panic attacks. Faustina put pt on 2L of oxygen and he appears fine at this point. I instructed him on pursed lip breathing and trying to calm down when the panic attacks hit. No issues at this time. Call light in easy reach.
[2019-03-16] VITALS (7 sets, daily range): BP systolic 130–158; BP diastolic 83–94; PULSE 66–88; RESP 16–24; TEMP 36.8–38.3; O2SAT 92–97
[2019-03-16] MEDS: Ketorolac 30 MG/ML Syringe IV ×4 (01:11→20:28)
[2019-03-16] MEDS: 0.9% Normal Saline 1,000 ML 250 ML IV ×2 (01:44→06:07)
[2019-03-16] MEDS: HYDROmorphone 1 MG/ML Syringe IV ×6 (03:04→23:30)
--- NOTE | 2019-03-16 03:05 | NURSING ---
Earlier pt thought Torodol was working so I held off on Dilaudid. He gets himself all worked up and has started talking about how he has no one to call and thinks he may from pancreatitis. Reassurance given. Now rates pain at a 5 in abdomen and says it is climbing. Will administer Dilaudid.
--- NOTE | 2019-03-16 03:52 | NURSING ---
I no sooner left pt's room after medicating him and he called out to the [employer] stating he can't breathe. Fan was provided & pt was lifted up in bed. Many reassurances given. He states a loud noise woke him up. Appears to be having panic attacks. Pt had oxygen off so it was reapplied for comfort. After we go to the room, he calms down and then apologizes for being a bother. Bed exit in place just in case he decides to try to get up without calling.
--- NOTE | 2019-03-16 07:29 | PCM.PN.HOSP ---
Patient Problems: Active and Suspected Problems Pancreatitis (Acute) Subjective: Patient is seen still complains of significant abdominal discomfort. He stated pain is better when he gets his pain medications. Lab work pending this a.m. Plan is for patient to be initiated on clear liquids Objective: GENERAL: cooperative, appears ill looking HEENT: Atraumatic; moist oral mucosa EYES; Anicteric, Normal Conjunctiva NECK; supple, normal thyroid, no distended JVD. RESPIRATORY: Diminished to auscultation bilaterally, CARDIOVASCULAR: Regular S1 S2, no audible murmurs GI: Severe epigastric tenderness : No Renal angle tenderness; EXTREMITIES: No edema, no clubbing, no cyanosis. MUSCULOSKELETAL: No Joint Tenderness; NEURO: Awake; no lateralizing signs. SKIN: No Rash PSYCH; Normal affect Vitals/I&O's: Vital Signs Temp Pulse Resp BP Pulse Ox 98.2 F 68 24 H 140/85 H 93 03/16/19 01:38 03/16/19 01:38 03/16/19 01:38 03/16/19 01:38 03/16/19 01:38 Oxygen Flow Rate (L/min) 2 Oxygen Delivery Method Room Air Weight: 79.38 kg Body Mass Index (BMI) 24.4 Intake and Output for Last 24 Hours 03/14/19 03/15/19 03/16/19 23:59 23:59 23:59 Intake Total 4693 / 4693 5908 / 5908 1483 / 1483 Output Total 1125 / 1125 1325 / 1325 450 / 450 Balance 3568 / 3568 4583 / 4583 1033 / 1033 Current Medications Dextrose (D50w Syringe) 0 gm IV X1 PRN; Protocol PRN Reason: Hypoglycemia Enoxaparin Sodium (Lovenox) 40 mg SC DAILY@1000 NEIL Last Admin: 03/15/19 09:43 Dose: 40 mg Glucagon () 1 mg IM .X1 PRN PRN Reason: Hypoglycemia Hydromorphone HCl (Dilaudid Inj) 1 mg IV Q3H PRN PRN PRN Reason: SEVERE PAIN (6-10/10) Last Admin: 03/16/19 06:07 Dose: 1 mg Sodium Chloride () 1,000 mls @ 250 mls/hr IV .Q4H NEIL Last Admin: 03/16/19 06:07 Dose: 250 mls/hr Pantoprazole Sodium 40 mg/ (Sodium Chloride) 110 mls @ 330 mls/hr IV Q24 NEIL Last Admin: 03/15/19 09:43 Dose: 330 mls/hr Ketorolac Tromethamine (Toradol) 30 mg IV Q6H PRN PRN PRN Reason: PAIN Stop: 03/18/19 09:10 Last Admin: 03/16/19 01:11 Dose: 30 mg Ondansetron HCl (Zofran) 4 mg IV Q8H PRN PRN PRN Reason: NAUSEA/VOMITING Last Admin: 03/13/19 14:23 Dose: 4 mg Sodium Chloride () 5 - 15 ml IV UD PRN PRN Reason: SALINE FLUSH Last Admin: 03/15/19 22:14 Dose: 10 ml Medical Necessity - Tobacco Use Smoking Status: Light Smoker (<10/day) Tobacco Use: Cigarettes Assessment/Plan All Active Problems Pancreatitis (Acute) Patient is a 58-year-old gentleman with history of intermittent alcohol use who presented with severe abdominal pain. Patient was found to have pancreatitis with lipase levels of [address] of the abdomen and pelvis obtained also demonstrated pancreatic edema consistent with acute pancreatitis admitted to regular nursing floor for conservative management 1. Acute pancreatitis: Suspected to be secondary to alcohol induced: Patient has been admitted to regular nursing floor for conservative management with pain meds, antinausea medication and bowel rest. Patient progress is rather been slow which is expected given the extent of his pancreatitis as evidenced on the CAT scan. 2. Acute duodenitis; patient is on PPI 3. Alcohol abuse: Counseled on cessation 4. Tobacco dependence counseled on cessation, offered nicotine patch for tobacco cravings 5. DVT prophylaxis SC Lovenox Code Visit Inpatient E&M: 97132 Subs Hosp L2
[2019-03-16] MEDS: 0.9% NaCl Peripheral Flush Adult/Peds IV ×4 (07:32→15:28)
[2019-03-16 08:35] LABS: Absolute Neutrophil Count 10.8 X10^3/uL (2.0-7.7); Basophil# 0.01 X10^3/uL; Basophil% 0.1 % (0-1); Hematocrit 35.7 % (40-54); Hemoglobin 11.8 g/dl (13.0-16.5); Lymphocyte % 6.9 % (19-41); Mean Corp Hgb Conc 33.1 g/gl (32-36); Mean Corpuscular Hgb 29.2 pg (27.0-32.0); Mean Corpuscular Volume 88.4 fL (80-94); Mean Platelet Vol. 10.2 fl (6.2-12.0); Monocyte% 9.9 % (0-10); Neutrophil # 10.84 X10^3/uL (2.7-7.7); Neutrophil % 82.7 % (47-70); Platelet Count 144 K/mm3 (150-450); RBC Distribution Width CV 13.8 % (11.6-14.6); RBC Distribution Width SD 44.1 fl (35.1-43.9); Red Blood Count 4.04 M/mm3 (4.6-6.2); White Blood Count 13.1 K/mm3 (4.4-11.0)
[2019-03-16 08:41] LABS: POSITIVE COUNT NO; POSITIVE DIFFERENTIAL NO; POSITIVE MORPHOLOGY NO
[2019-03-16 09:05] LABS: ALB/GLOB Ratio 0.7 RATIO (0.9-2.4); AST(SGOT) 35 U/L (15-37); Alanine Aminotransfer ALT/SGPT 28 U/L (16-61); Albumin, Serum 2.4 g/dL (3.2-5.0); Alkaline Phosphatase 55 U/L (45-117); Anion Gap 11 (5-15); BUN 15 mg/dL (7-18); BUN/Creat Ratio 22.9 RATIO (10-20); Calcium,Total 6.9 mg/dL (8.5-10.1); Chloride 117 mmol/L (98-107); Creatinine, Serum 0.66 mg/dL (0.70-1.30); EST Glomerular Filtration Rate 133 mL/min (>60); Est Glom Filt Rate - Afr Amer 160 mL/min (>60); Estimated Creatinine Clearance 129.94 ml/min; Globulin 3.3 g/dL (2.2-4.2); Glucose 92 mg/dL (74-106); Lipase 788 U/L (73-393); Magnesium 2.3 mg/dL (1.6-2.6); Potassium 3.2 mmol/L (3.5-5.1); Protein, Total 5.7 g/dL (6.4-8.2); Sodium Level 150 mmol/L (136-145)
[2019-03-16] MEDS: Enoxaparin 40 MG/0.4 ML Syringe SC (09:28)
[2019-03-16] MEDS: Pantoprazole Sodium 40 MG Tablet PO (10:31)
[2019-03-16 10:32] LABS: Pathologist Review Reviewed
[2019-03-16] MEDS: chlordiazePOXIDE 25 MG Capsule PO ×3 (11:00→22:38)
--- NOTE | 2019-03-16 11:00 | NURSING ---
At this time the patient, with his daughter present, admitted he did occasionally drink 5-8 beers. He would not state how frequent this was. The daughter reports the neighbors are bad influences and they drink heavily.
[2019-03-16] MEDS: Multivitamins,Therapeutic Tablet 1 TABLET PO (11:01)
[2019-03-16] MEDS: Thiamine Hydrochloride 100 MG Tablet PO (11:01)
[2019-03-16] MEDS: Folic Acid 1 MG Tablet PO (11:01)
--- NOTE | 2019-03-16 11:46 | CASEMGMT ---
Social Work Note SW received referral from RN ROBERT Boone for possibly ETOH abuse. SW met with pt, introduced self and role at [facility]. Pt is alert and orientated x4. Pt's daughter present in room. Pt gave this worker permission to speak to him in front of his guest. Pt states that he has a history of anxiety, denied medications or counseling. Pt states that his boss gives him anxiety. Pt states his boss is already asking him to come back to work. Pt states that he has worked at [employer] for 35 years and that he recently got a younger boss who doesn't know anything. SW offered support to pt. Pt states that he has a history of cigarette use and Marijuana use. Pt states that he has smoked cigarettes for 2 years and started smoking cigars at the age of 26. Pt states that he has decreased his amount of cigarettes he smokes though as he is painting his house and doesn't want to smoke in the new house and also isn't permitted to smoke at work. Pt states that he smokes about every other day. In regards to Marijuana pt states doesn't everyone smoke Marijuana, Indians used to smoke Marijuana in their smoke pipes. Pt denied information regarding tobacco cessation program or substance abuse resources. Pt denied any alcohol use or abuse to this worker. Pt denied wanting resources for counseling or substance abuse treatment. Pt denied additional needs or concerns at this time. Christine Combs PASTRY MIXER, ANIMAL BIOLOGIST
[2019-03-16 19:44] LABS: Anion Gap 4 (5-15); BUN 15 mg/dL (7-18); BUN/Creat Ratio 17.1 RATIO (10-20); Calcium,Total 7.4 mg/dL (8.5-10.1); Chloride 115 mmol/L (98-107); Creatinine, Serum 0.88 mg/dL (0.70-1.30); EST Glomerular Filtration Rate 95 mL/min (>60); Est Glom Filt Rate - Afr Amer 115 mL/min (>60); Estimated Creatinine Clearance 97.45 ml/min; Glucose 122 mg/dL (74-106); Potassium 2.9 mmol/L (3.5-5.1); Sodium Level 144 mmol/L (136-145)
[2019-03-16] MEDS: Acetaminophen 500 MG Tablet PO (20:22)
[2019-03-16] MEDS: traZODone 50 MG Tablet PO (22:38)
[2019-03-16] MEDS: LORazepam 2 MG/ML Syringe 1 MG IV (22:47)
[2019-03-17] VITALS (7 sets, daily range): BP systolic 129–141; BP diastolic 77–90; PULSE 71–79; RESP 18; TEMP 36.6–38.2; O2SAT 93–97
[2019-03-17] MEDS: HYDROmorphone 1 MG/ML Syringe IV ×5 (04:03→22:56)
[2019-03-17] MEDS: Ketorolac 30 MG/ML Syringe IV ×2 (04:03→21:14)
[2019-03-17] MEDS: chlordiazePOXIDE 25 MG Capsule PO ×3 (05:11→21:14)
[2019-03-17 07:03] LABS: Absolute Lymphocyte Count 1.05 X10^3/ul (0.83-4.51); Absolute Neutrophil Count 9.2 X10^3/uL (2.0-7.7); Basophil# 0.01 X10^3/uL; Basophil% 0.1 % (0-1); Eosinophil# 0.05 X10^3/uL; Eosinophils% 0.4 % (0-5); Hematocrit 34.7 % (40-54); Hemoglobin 11.6 g/dl (13.0-16.5); Lymphocyte # 1.05 X10^3/ul (4.0); Lymphocyte % 8.9 % (19-41); Mean Corp Hgb Conc 33.4 g/gl (32-36); Mean Corpuscular Hgb 29.2 pg (27.0-32.0); Mean Corpuscular Volume 87.4 fL (80-94); Mean Platelet Vol. 10.3 fl (6.2-12.0); Monocyte# 1.48 X10^3/uL; Monocyte% 12.6 % (0-10); Neutrophil # 9.16 X10^3/uL (2.7-7.7); Neutrophil % 77.8 % (47-70); Platelet Count 172 K/mm3 (150-450); RBC Distribution Width CV 13.4 % (11.6-14.6); Red Blood Count 3.97 M/mm3 (4.6-6.2); White Blood Count 11.8 K/mm3 (4.4-11.0)
[2019-03-17 07:05] LABS: POSITIVE COUNT NO; POSITIVE DIFFERENTIAL NO; POSITIVE MORPHOLOGY NO
--- NOTE | 2019-03-17 07:22 | PN_ITS ---
Patient Problems: Active and Suspected Problems Pancreatitis (Acute) Subjective: Patient was noted to be very tremulous the day prior and assessment of acute alcohol withdrawal was made started on Librium tapering dose. His sodium level also went up to 150 IV fluids adjusted. Potassium dropped to 2.9 repletion initiated Objective: GENERAL: cooperative, but tremulous at rest HEENT: Atraumatic; moist oral mucosa EYES; Anicteric, Normal Conjunctiva NECK; supple, normal thyroid, no distended JVD. RESPIRATORY: Diminished to auscultation bilaterally, CARDIOVASCULAR: Regular S1 S2, no audible murmurs GI: Severe epigastric tenderness : No Renal angle tenderness; EXTREMITIES: No edema, no clubbing, no cyanosis. MUSCULOSKELETAL: No Joint Tenderness; NEURO: Awake; no lateralizing signs. SKIN: No Rash PSYCH; Normal affect Vitals/I&O's: Vital Signs Temp Pulse Resp BP Pulse Ox 98.1 F 73 18 135/90 H 93 03/17/19 03:58 03/17/19 03:58 03/17/19 03:58 03/17/19 03:58 03/17/19 03:58 Oxygen Flow Rate (L/min) 2 Oxygen Delivery Method Room Air Weight: 79.38 kg Body Mass Index (BMI) 24.4 Intake and Output for Last 24 Hours 03/15/19 03/16/19 03/17/19 23:59 23:59 23:59 Intake Total 5908 / 5908 4063 / 4063 2126 / 2126 Output Total 1325 / 1325 850 / 850 450 / 450 Balance 4583 / 4583 3213 / 3213 1676 / 1676 Laboratory Results 03/13/19 05:15: Diff Path Review Reviewed 03/16/19 08:18: WBC 13.1 H, RBC 4.04 L, Hgb 11.8 L, Hct 35.7 L, MCV 88.4, MCH 29.2, MCHC 33.1, RDW 13.8, RDW Differential 44.1 H, Plt Count 144 L, MPV 10.2, Immature Gran % (Auto) 0.400, Neut % (Auto) 82.7 H, Lymph % (Auto) 6.9 L, [place] % (Auto) 9.9, Eos % (Auto) 0.0, Baso % (Auto) 0.1, Absolute Neuts (auto) 10.8 H, Absolute Lymphs (auto) 0.90, Total Counted Not Reportable 03/16/19 08:18: Sodium 150 H, Potassium 3.2 L, Chloride 117 H, Carbon Dioxide 22.0, Anion Gap 11, BUN 15, Creatinine 0.66 L, Estim Creat Clear Calc 129.94, Est GFR (MDRD) Af Amer 160, Est GFR (MDRD) Non-Af 133, BUN/Creatinine Ratio 22.9 H, Glucose 92, Calcium 6.9 L, Magnesium 2.3, Total Bilirubin 1.20 H, AST 35, ALT 28, Alkaline Phosphatase 55, Total Protein 5.7 L, Albumin 2.4 L, Globulin 3.3, Albumin/Globulin Ratio 0.7 L, Lipase 788 H 03/16/19 18:45: Sodium 144, Potassium 2.9 L, Chloride 115 H, Carbon Dioxide 25.0, Anion Gap 4 L, BUN 15, Creatinine 0.88, Estim Creat Clear Calc 97.45, Est GFR (MDRD) Af Amer 115, Est GFR (MDRD) Non-Af 95, BUN/Creatinine Ratio 17.1, Glucose 122 H, Calcium 7.4 L 03/17/19 06:24: WBC 11.8 H, RBC 3.97 L, Hgb 11.6 L, Hct 34.7 L, MCV 87.4, MCH 29.2, MCHC 33.4, RDW 13.4, RDW Differential 42.0, Plt Count 172, MPV 10.3, Immature Gran % (Auto) 0.200, Neut % (Auto) 77.8 H, Lymph % (Auto) 8.9 L, [place] % (Auto) 12.6 H, Eos % (Auto) 0.4, Baso % (Auto) 0.1, Absolute Neuts (auto) 9.2 H, Absolute Lymphs (auto) 1.05, Total Counted Not Reportable 03/17/19 06:24: Sodium Pending, Potassium Pending, Chloride Pending, Carbon Dioxide Pending, Anion Gap Pending, BUN Pending, Creatinine Pending, Est GFR (MDRD) Af Amer Pending, Est GFR (MDRD) Non-Af Pending, BUN/Creatinine Ratio Pending, Glucose Pending, Calcium Pending, Lipase Pending Current Medications Acetaminophen (Tylenol) 500 mg PO Q4H PRN PRN PRN Reason: Temp > 100.4 F Last Admin: 03/16/19 20:22 Dose: 500 mg Al Hydroxide/Mg Hydroxide (Mylanta Ii) 30 ml PO Q6H PRN PRN PRN Reason: dyspesia Bisacodyl (Dulcolax) 10 mg RECTAL DAILY PRN PRN Reason: Constipation Chlordiazepoxide (Librium) 50 mg PO Q8H [facility]; Taper Stop: 03/19/19 12:59 Last Admin: 03/17/19 05:11 Dose: 50 mg Dextrose (D50w Syringe) 0 gm IV X1 PRN; Protocol PRN Reason: Hypoglycemia Enoxaparin Sodium (Lovenox) 40 mg SC DAILY@1000 NEIL Last Admin: 03/16/19 09:28 Dose: 40 mg Folic Acid ([facility] Acid) [facility] Stop: 03/18/19 08:01 Last Admin: 03/16/19 11:01 Dose: 1 mg Glucagon () 1 mg IM .X1 PRN PRN Reason: Hypoglycemia Hydromorphone HCl (Dilaudid Inj) 1 mg IV Q3H PRN PRN PRN Reason: SEVERE PAIN (6-10/10) Last Admin: 03/17/19 04:03 Dose: 1 mg Potassium Chloride/Dextrose/Sod Cl (Kcl 20meq In D5.45ns 1000ml) 1,000 mls @ 150 mls/hr IV .Q6H40M [facility] Last Admin: 03/17/19 05:43 Dose: 150 mls/hr Ketorolac Tromethamine (Toradol) 30 mg IV Q6H PRN PRN PRN Reason: PAIN Stop: 03/18/19 09:10 Last Admin: 03/17/19 04:03 Dose: 30 mg Loperamide HCl (Imodium) 2 - 4 mg PO UD PRN PRN Reason: LOOSE STOOLS Lorazepam (Ativan) 1 mg IV Q4H PRN PRN PRN Reason: Severe Anxiety Last Admin: 03/16/19 22:47 Dose: 1 mg Lorazepam (Ativan) 2 mg IV X1 PRN PRN Reason: Seizure Multivitamins (Multivitamin) [facility] Last Admin: 03/16/19 11:01 Dose: 1 tablet Ondansetron HCl (Zofran) 4 mg IV Q8H PRN PRN PRN Reason: NAUSEA/VOMITING Last Admin: 03/13/19 14:23 Dose: 4 mg Ondansetron HCl (Zofran Odt) 4 mg PO Q6H PRN PRN PRN Reason: NAUSEA Pantoprazole Sodium (Protonix) 40 mg PO DAILY [facility] Last Admin: 03/16/19 10:31 Dose: 40 mg Senna (Senokot) 1 tablet PO QHS PRN PRN Reason: Constipation Sodium Chloride () 5 - 15 ml IV UD PRN PRN Reason: SALINE FLUSH Last Admin: 03/16/19 15:28 Dose: 10 ml Thiamine HCl (Vitamin B1) [facility] Stop: 03/18/19 08:01 Last Admin: 03/16/19 11:01 Dose: 100 mg Trazodone HCl (Desyrel) 50 mg PO QHS [facility] Last Admin: 03/16/19 22:38 Dose: 50 mg Medical Necessity - Tobacco Use Smoking Status: Light Smoker (<10/day) Tobacco Use: Cigarettes Assessment/Plan All Active Problems Pancreatitis (Acute) Patient is a 58-year-old gentleman with history of intermittent alcohol use who presented with severe abdominal pain. Patient was found to have pancreatitis with lipase levels of [address] of the abdomen and pelvis obtained also demonstrated pancreatic edema consistent with acute pancreatitis admitted to regular nursing floor for conservative management 1. Acute pancreatitis: Suspected to be secondary to alcohol induced: Patient has been admitted to regular nursing floor for conservative management with pain meds, antinausea medication and bowel rest. Patient progress is rather been slow which is expected given the extent of his pancreatitis as evidenced on the CAT scan.. Patient was started on clear liquids beginning 03/16/2019 2. Acute alcohol withdrawal patient was placed on Librium taper using the [facility] protocol 3. Hyponatremia adjusted patient IV fluids with subsequent monitoring of electrolyte 4. Hypokalemia quite significant at 2.9 repletion initiated 5. Acute duodenitis; patient is on PPI 6. Alcohol abuse: Counseled on cessation 7. Tobacco dependence counseled on cessation, offered nicotine patch for tobacco cravings 8. DVT prophylaxis SC Lovenox Code Visit Inpatient E&M: 21776 [facility] Hosp L3
[2019-03-17 07:30] LABS: Anion Gap 6 (5-15); BUN 16 mg/dL (7-18); BUN/Creat Ratio 19.6 RATIO (10-20); Calcium,Total 7.5 mg/dL (8.5-10.1); Chloride 116 mmol/L (98-107); Creatinine, Serum 0.82 mg/dL (0.70-1.30); EST Glomerular Filtration Rate 103 mL/min (>60); Est Glom Filt Rate - Afr Amer 124 mL/min (>60); Estimated Creatinine Clearance 104.58 ml/min; Glucose 118 mg/dL (74-106); Lipase 467 U/L (73-393); Potassium 3.4 mmol/L (3.5-5.1); Sodium Level 145 mmol/L (136-145)
[2019-03-17] MEDS: Enoxaparin 40 MG/0.4 ML Syringe SC (09:02)
[2019-03-17] MEDS: Folic Acid 1 MG Tablet PO (09:03)
[2019-03-17] MEDS: Multivitamins,Therapeutic Tablet 1 TABLET PO (09:03)
[2019-03-17] MEDS: Pantoprazole Sodium 40 MG Tablet PO (09:03)
[2019-03-17] MEDS: Thiamine Hydrochloride 100 MG Tablet PO (09:03)
[2019-03-17] MEDS: 0.9% NaCl Peripheral Flush Adult/Peds IV ×3 (10:59→17:30)
[2019-03-17] MEDS: Acetaminophen 500 MG Tablet PO (12:45)
[2019-03-17] MEDS: Mag Hydrox/Al Hydrox/Simeth 30 ML UDC PO (12:48)
--- NOTE | 2019-03-17 13:10 | RAD_ITS ---
STUDY: X-RAY CHEST REASON FOR EXAM: Male, 58 years old. Shortness of breath/dyspnea. TECHNIQUE: Single AP portable view of the chest. COMPARISON: None. FINDINGS: Vascular congestion and CHF. Left pleural effusion with underlying infiltration and/or atelectasis. Blunting of the right costophrenic angle. Mild increased markings at the right lung base. Normal size heart. Normal mediastinum and radha. Normal visualized pulmonary arteries. There is atherosclerotic tortuosity of the aortic arch and descending thoracic aorta. Normal visualized thoracic spine. Normal visualized ribs, clavicles, and shoulders. There is no demonstrated abnormality of the visualized soft tissue structures of the upper abdomen. RAD/Chest 1 View (Portable) IMPRESSION: Mild CHF with the pleural parenchymal changes at the left lung base and small right pleural effusion. Electronically Signed: Tyrone Melvin, at 15:36 EDT , Service support ,
--- NOTE | 2019-03-17 16:43 | ECHOCS_ITS ---
Reason For Study: CHF Procedure This was a 2D Doppler, Color Flow transthoracic echocardiogram. Declined the use of Definity due to increased PAP. Exam performed portable in patient room. Left Ventricle Normal size and thickness. The estimated ejection fraction is 65 %. Normal diastology for age. No regional wall motion abnormalities noted. Right Ventricle Mildly dilated right ventricle. Normal systolic function. Atria Normal left atrium. The right atrium is mildly enlarged. Normal atrial septum. Mitral Valve The mitral valve is structurally normal. No prolapse or stenosis seen. Tricuspid Valve Normal tricuspid valve. Mild (1+) tricuspid valve insufficiency. Right ventricular systolic pressure estimated to be 50 mmHg. Moderate pulmonary hypertension. Aortic Valve Normal aortic valve. Trisinus/trileaflet aortic valve. Pulmonic Valve Normal pulmonic valve. Great Vessels Normal aortic root. Normal arch. The inferior vena cava is dilated. No collapse of the inferior vena cava. Pericardium/Pleural No pericardial effusion. MMode/2D Measurements & Calculations LVIDd: 4.5 cm IVSd: 1.1 cm Ao root diam: 4.5 cm LVIDs: 2.9 cm LVPWd: 1.0 cm LA dimension: 3.1 cm RVDd: 3.9 cm FS: 34.5 % LAV(MOD-sp4): 22.6 ml LA A4 area: 10.6 cm2 RA A4 area: 20.7 cm2 Time Measurements MV dec time: 0.22 sec Doppler Measurements & Calculations MV E max jose: 147.0 cm/sec Lat Peak E' Jose: 11.9 cm/sec Med Peak E' Jose: 11.7 cm/sec MV A max jose: 123.4 cm/sec E/E' lat: 12.3 E/E' med: 12.5 MV E/A: 1.2 MV V2 max: 141.6 cm/sec MV P1/2t max jose: 140.6 cm/sec Ao V2 max: 189.5 cm/sec MV max P.0 mmHg MV P1/2t: 90.7 msec Ao max P.4 mmHg MV V2 mean: 74.6 cm/sec MV dec slope: 453.9 cm/sec2 Ao V2 mean: 112.9 cm/sec MV mean P.7 mmHg MVA(P1/2t): 2.4 cm2 Ao mean P.1 mmHg MV V2 VTI: 40.7 cm Ao V2 VTI: 31.0 cm LV V1 max: 170.3 cm/sec PA V2 max: 110.7 cm/sec TR max jose: 335.1 cm/sec LV V1 max P.6 mmHg TR max P.9 mmHg LV V1 mean P.5 mmHg LV V1 mean: 107.1 cm/sec LV V1 VTI: 33.5 cm Interpretation Summary The estimated ejection fraction is 65 %. Normal diastology for age. Mildly dilated right ventricle. Mild (1+) tricuspid valve insufficiency. Right ventricular systolic pressure estimated to be 50 mmHg. Moderate pulmonary hypertension. The inferior vena cava is dilated No collapse of the inferior vena cava. There is no comparison study available. Ordering Physician: Tereso Rodriguez Referring Physician: Ziggy Smith Performed By: Maxime Pang RCS
[2019-03-17] MEDS: Furosemide 100 MG/10 ML Vial 80 MG IV (17:29)
--- NOTE | 2019-03-17 18:11 | NURSING ---
DaughterXochilt, called for update on patient, patient OK to given information over the phone to daughter.
[2019-03-17] MEDS: traZODone 50 MG Tablet PO (21:14)
[2019-03-18] VITALS (14 sets, daily range): BP systolic 125–145; BP diastolic 73–93; PULSE 70–82; RESP 14–20; TEMP 36.6–38.7; O2SAT 93–96
--- NOTE | 2019-03-18 03:15 | NURSING ---
Patient got up to the bathroom. Per JET ENGINE MECHANIC Dona when came out he had taken out his 2 IV's and removed his gown. When this nurse went into patient's room he had a towel wrapped around his waste and he was going through his belongings bag. This nurse asked if pt. would like to put on a pair of pants and a new gown and pt. responded with I am putting my own clothes on. This nurse asked for the assistance of charge nurse at this time. Charge nurse asked pt. if he knew where he was and pt. reponded [place]. Charge nurse asked pt. the date and the pt. responded September. As pt. tries to put his clothes on he stumbles. When asked if he would like to sit down and put his pants on the pt. responded Don't piss me off. After pt. had his clothes on the charge nurse asked if we could replace his IV's and the pt. responded I'll think about it. Pt. is sitting in his chair at this time with his street clothes on.
[2019-03-18] MEDS: chlordiazePOXIDE 25 MG Capsule PO (04:15)
[2019-03-18] MEDS: HYDROmorphone 1 MG/ML Syringe IV (04:34)
--- NOTE | 2019-03-18 04:41 | NURSING ---
Pt. more cooperative, still in street clothes. Started to become painful and agreed to allow this nurse to put in new IV.
[2019-03-18 06:14] LABS: Absolute Lymphocyte Count 0.95 X10^3/ul (0.83-4.51); Absolute Neutrophil Count 10.4 X10^3/uL (2.0-7.7); Basophil# 0.01 X10^3/uL; Basophil% 0.1 % (0-1); Eosinophil# 0.12 X10^3/uL; Eosinophils% 0.9 % (0-5); Hematocrit 32.4 % (40-54); Hemoglobin 10.8 g/dl (13.0-16.5); Lymphocyte # 0.95 X10^3/ul (4.0); Lymphocyte % 7.3 % (19-41); Mean Corp Hgb Conc 33.3 g/gl (32-36); Mean Corpuscular Hgb 29.1 pg (27.0-32.0); Mean Corpuscular Volume 87.3 fL (80-94); Mean Platelet Vol. 10.1 fl (6.2-12.0); Monocyte% 11.6 % (0-10); Neutrophil # 10.36 X10^3/uL (2.7-7.7); Neutrophil % 79.8 % (47-70); Platelet Count 185 K/mm3 (150-450); RBC Distribution Width CV 13.6 % (11.6-14.6); Red Blood Count 3.71 M/mm3 (4.6-6.2)
[2019-03-18 06:27] LABS: POSITIVE COUNT NO; POSITIVE DIFFERENTIAL NO; POSITIVE MORPHOLOGY NO
[2019-03-18 06:35] LABS: Anion Gap 7 (5-15); BUN 15 mg/dL (7-18); BUN/Creat Ratio 18.8 RATIO (10-20); Calcium,Total 7.4 mg/dL (8.5-10.1); Chloride 114 mmol/L (98-107); EST Glomerular Filtration Rate 106 mL/min (>60); Est Glom Filt Rate - Afr Amer 128 mL/min (>60); Glucose 101 mg/dL (74-106); Potassium 2.9 mmol/L (3.5-5.1); Sodium Level 146 mmol/L (136-145)
--- NOTE | 2019-03-18 08:10 | PCM.PN.HOSP ---
Patient Problems: Active and Suspected Problems Pancreatitis (Acute) Subjective: Patient seen. Per report from nursing staff had episodic confusion during the night. Chest x-ray obtained the day prior to demonstrated Mild CHF with the pleural parenchymal changes at the left lung base and small right pleural effusion. Patient was started on Lasix with significant urinary output ordered a 2D echo for EF assessment. Potassium this morning is 2.9 repletion initiated Objective: GENERAL: cooperative, with some tremor at rest HEENT: Atraumatic; moist oral mucosa EYES; Anicteric, Normal Conjunctiva NECK; supple, normal thyroid, no distended JVD. RESPIRATORY: Diminished to auscultation bilaterally, CARDIOVASCULAR: Regular S1 S2, no audible murmurs GI: Severe epigastric tenderness : No Renal angle tenderness; EXTREMITIES: No edema, no clubbing, no cyanosis. MUSCULOSKELETAL: No Joint Tenderness; NEURO: Awake; no lateralizing signs. SKIN: No Rash PSYCH; flat affect Vitals/I&O's: Vital Signs Temp Pulse Resp BP Pulse Ox 98.3 F 70 16 131/92 H 94 03/18/19 04:39 03/18/19 04:39 03/18/19 04:39 03/18/19 04:39 03/18/19 07:20 Oxygen Flow Rate (L/min) 2 Oxygen Delivery Method Room Air Weight: 79.38 kg Body Mass Index (BMI) 24.4 Intake and Output for Last 24 Hours 03/16/19 03/17/19 03/18/19 23:59 23:59 23:59 Intake Total 4063 / 4063 3673 / 3673 982 / 982 Output Total 850 / 850 650 / 650 2275 / 2275 Balance 3213 / 3213 3023 / 3023 -1293 / -1293 Laboratory Results 03/18/19 05:40: WBC 13.0 H, RBC 3.71 L, Hgb 10.8 L, Hct 32.4 L, MCV 87.3, MCH 29.1, MCHC 33.3, RDW 13.6, RDW Differential 42.0, Plt Count 185, MPV 10.1, Immature Gran % (Auto) 0.300, Neut % (Auto) 79.8 H, Lymph % (Auto) 7.3 L, [place] % (Auto) 11.6 H, Eos % (Auto) 0.9, Baso % (Auto) 0.1, Absolute Neuts (auto) 10.4 H, Absolute Lymphs (auto) 0.95, Total Counted Not Reportable 03/18/19 05:40: Sodium 146 H, Potassium 2.9 L, Chloride 114 H, Carbon Dioxide 25.0, Anion Gap 7, BUN 15, Creatinine 0.80, Estim Creat Clear Calc 107.20, Est GFR (MDRD) Af Amer 128, Est GFR (MDRD) Non-Af 106, BUN/Creatinine Ratio 18.8, Glucose 101, Calcium 7.4 L Current Medications Acetaminophen (Tylenol) 500 mg PO Q4H PRN PRN PRN Reason: Temp > 100.4 F Last Admin: 03/17/19 12:45 Dose: 500 mg Al Hydroxide/Mg Hydroxide (Mylanta Ii) 30 ml PO Q6H PRN PRN PRN Reason: dyspesia Last Admin: 03/17/19 12:48 Dose: 30 ml Bisacodyl (Dulcolax) 10 mg RECTAL DAILY PRN PRN Reason: Constipation Chlordiazepoxide (Librium) 50 mg PO Q8H [facility]; Taper Stop: 03/19/19 12:59 Last Admin: 03/18/19 04:15 Dose: 50 mg Dextrose (D50w Syringe) 0 gm IV X1 PRN; Protocol PRN Reason: Hypoglycemia Enoxaparin Sodium (Lovenox) 40 mg SC DAILY@1000 NEIL Last Admin: 03/17/19 09:02 Dose: 40 mg Glucagon () 1 mg IM .X1 PRN PRN Reason: Hypoglycemia Loperamide HCl (Imodium) 2 - 4 mg PO UD PRN PRN Reason: LOOSE STOOLS Multivitamins (Multivitamin) 1 tablet PO DAILYCM [facility] Last Admin: 03/17/19 09:03 Dose: 1 tablet Nutritional Formula (Lactose Free) (Ensure Clear) 120 ml PO 4X/DAY [facility] Last Admin: 03/17/19 21:20 Dose: Not Given Ondansetron HCl (Zofran Odt) 4 mg PO Q6H PRN PRN PRN Reason: NAUSEA Pantoprazole Sodium (Protonix) 40 mg PO DAILY [facility] Last Admin: 03/17/19 09:03 Dose: 40 mg Potassium Chloride (K-Dur) 40 meq PO X1 ONE Stop: 03/18/19 08:09 Potassium Chloride (K-Dur) 40 meq PO BIDCM NEIL Senna (Senokot) 1 tablet PO QHS PRN PRN Reason: Constipation Sodium Chloride () 5 - 15 ml IV UD PRN PRN Reason: SALINE FLUSH Last Admin: 03/17/19 17:30 Dose: 10 ml Medical Necessity - Tobacco Use Smoking Status: Light Smoker (<10/day) Tobacco Use: Cigarettes Assessment/Plan All Active Problems Pancreatitis (Acute) Patient is a 58-year-old gentleman with history of intermittent alcohol use who presented with severe abdominal pain. Patient was found to have pancreatitis with lipase levels of [address] of the abdomen and pelvis obtained also demonstrated pancreatic edema consistent with acute pancreatitis admitted to regular nursing floor for conservative management 1. Acute pancreatitis: Suspected to be secondary to alcohol induced: Patient has been admitted to regular nursing floor for conservative management with pain meds, antinausea medication and bowel rest. Patient progress is rather been slow which is expected given the extent of his pancreatitis as evidenced on the CAT scan.. Patient was started on clear liquids beginning 03/16/2019 2. Acute congestive heart failure with preserved ejection fraction possibly precipitated by patient aggressive IV fluid resuscitation. Chest x-ray obtained the day prior to demonstrated Mild CHF with the pleural parenchymal changes at the left lung base and small right pleural effusion. Patient was started on Lasix with significant urinary output ordered a 2D echo for EF assessment. 3. Acute delirium secondary to acute alcohol withdrawal patient was placed on Librium taper using the [facility] protocol 4. Hypokalemia corrected per protocol 5. Acute duodenitis; patient is on PPI 6. Alcohol abuse: Counseled on cessation 7. Tobacco dependence counseled on cessation, offered nicotine patch for tobacco cravings 8. Hyponatremia adjusted patient IV fluids with subsequent monitoring of electrolyte: Resolved 9. DVT prophylaxis SC Lovenox 10. Physical deconditioning requested for PT OT eval; social worker palliative care to assist with disposition Code Visit Inpatient E&M: 14691 Subs Hosp L3
--- NOTE | 2019-03-18 08:14 | PN_ITS ---
Patient Problems: Active and Suspected Problems Pancreatitis (Acute) Subjective: Patient seen. Per report from nursing staff had episodic confusion during the night. Chest x-ray obtained the day prior to demonstrated Mild CHF with the pleural parenchymal changes at the left lung base and small right pleural effusion. Patient was started on Lasix with significant urinary output ordered a 2D echo for EF assessment. Potassium this morning is 2.9 repletion initiated Objective: GENERAL: cooperative, with some tremor at rest HEENT: Atraumatic; moist oral mucosa EYES; Anicteric, Normal Conjunctiva NECK; supple, normal thyroid, no distended JVD. RESPIRATORY: Diminished to auscultation bilaterally, CARDIOVASCULAR: Regular S1 S2, no audible murmurs GI: Severe epigastric tenderness : No Renal angle tenderness; EXTREMITIES: No edema, no clubbing, no cyanosis. MUSCULOSKELETAL: No Joint Tenderness; NEURO: Awake; no lateralizing signs. SKIN: No Rash PSYCH; flat affect Vitals/I&O's: Vital Signs Temp Pulse Resp BP Pulse Ox 98.3 F 70 16 131/92 H 94 03/18/19 04:39 03/18/19 04:39 03/18/19 04:39 03/18/19 04:39 03/18/19 07:20 Oxygen Flow Rate (L/min) 2 Oxygen Delivery Method Room Air Weight: 79.38 kg Body Mass Index (BMI) 24.4 Intake and Output for Last 24 Hours 03/16/19 03/17/19 03/18/19 23:59 23:59 23:59 Intake Total 4063 / 4063 3673 / 3673 982 / 982 Output Total 850 / 850 650 / 650 2275 / 2275 Balance 3213 / 3213 3023 / 3023 -1293 / -1293 Laboratory Results 03/18/19 05:40: WBC 13.0 H, RBC 3.71 L, Hgb 10.8 L, Hct 32.4 L, MCV 87.3, MCH 29.1, MCHC 33.3, RDW 13.6, RDW Differential 42.0, Plt Count 185, MPV 10.1, Immature Gran % (Auto) 0.300, Neut % (Auto) 79.8 H, Lymph % (Auto) 7.3 L, [place] % (Auto) 11.6 H, Eos % (Auto) 0.9, Baso % (Auto) 0.1, Absolute Neuts (auto) 10.4 H , Absolute Lymphs (auto) 0.95, Total Counted Not Reportable 03/18/19 05:40: Sodium 146 H, Potassium 2.9 L, Chloride 114 H, Carbon Dioxide 25.0, Anion Gap 7, BUN 15, Creatinine 0.80, Estim Creat Clear Calc 107.20, Est GFR (MDRD) Af Amer 128, Est GFR (MDRD) Non-Af 106, BUN/Creatinine Ratio 18.8, Glucose 101, Calcium 7.4 L Current Medications Acetaminophen (Tylenol) 500 mg PO Q4H PRN PRN PRN Reason: Temp > 100.4 F Last Admin: 03/17/19 12:45 Dose: 500 mg Al Hydroxide/Mg Hydroxide (Mylanta Ii) 30 ml PO Q6H PRN PRN PRN Reason: dyspesia Last Admin: 03/17/19 12:48 Dose: 30 ml Bisacodyl (Dulcolax) 10 mg RECTAL DAILY PRN PRN Reason: Constipation Chlordiazepoxide (Librium) 50 mg PO Q8H [facility]; Taper Stop: 03/19/19 12:59 Last Admin: 03/18/19 04:15 Dose: 50 mg Dextrose (D50w Syringe) 0 gm IV X1 PRN; Protocol PRN Reason: Hypoglycemia Enoxaparin Sodium (Lovenox) 40 mg SC DAILY@1000 NEIL Last Admin: 03/17/19 09:02 Dose: 40 mg Glucagon () 1 mg IM .X1 PRN PRN Reason: Hypoglycemia Loperamide HCl (Imodium) 2 - 4 mg PO UD PRN PRN Reason: LOOSE STOOLS Multivitamins (Multivitamin) 1 tablet PO DAILYCM [facility] Last Admin: 03/17/19 09:03 Dose: 1 tablet Nutritional Formula (Lactose Free) (Ensure Clear) 120 ml PO 4X/DAY [facility] Last Admin: 03/17/19 21:20 Dose: Not Given Ondansetron HCl (Zofran Odt) 4 mg PO Q6H PRN PRN PRN Reason: NAUSEA Pantoprazole Sodium (Protonix) 40 mg PO DAILY [facility] Last Admin: 03/17/19 09:03 Dose: 40 mg Potassium Chloride (K-Dur) 40 meq PO X1 ONE Stop: 03/18/19 08:09 Potassium Chloride (K-Dur) 40 meq PO BIDCM NEIL Senna (Senokot) 1 tablet PO QHS PRN PRN Reason: Constipation Sodium Chloride () 5 - 15 ml IV UD PRN PRN Reason: SALINE FLUSH Last Admin: 03/17/19 17:30 Dose: 10 ml Medical Necessity - Tobacco Use Smoking Status: Light Smoker (<10/day) Tobacco Use: Cigarettes Assessment/Plan All Active Problems Pancreatitis (Acute) Patient is a 58-year-old gentleman with history of intermittent alcohol use who presented with severe abdominal pain. Patient was found to have pancreatitis with lipase levels of [address] of the abdomen and pelvis obtained also demonstrated pancreatic edema consistent with acute pancreatitis admitted to regular nursing floor for conservative management 1. Acute pancreatitis: Suspected to be secondary to alcohol induced: Patient has been admitted to regular nursing floor for conservative management with pain meds, antinausea medication and bowel rest. Patient progress is rather been slow which is expected given the extent of his pancreatitis as evidenced on the CAT scan.. Patient was started on clear liquids beginning 03/16/2019 2. Acute congestive heart failure with preserved ejection fraction possibly precipitated by patient aggressive IV fluid resuscitation. Chest x-ray obtained the day prior to demonstrated Mild CHF with the pleural parenchymal changes at the left lung base and small right pleural effusion. Patient was started on Lasix with significant urinary output ordered a 2D echo for EF assessment. 3. Acute delirium secondary to acute alcohol withdrawal patient was placed on Librium taper using the [facility] protocol 4. Hypokalemia corrected per protocol 5. Acute duodenitis; patient is on PPI 6. Alcohol abuse: Counseled on cessation 7. Tobacco dependence counseled on cessation, offered nicotine patch for tobacco cravings 8. Hyponatremia adjusted patient IV fluids with subsequent monitoring of electrolyte: Resolved 9. DVT prophylaxis SC Lovenox 10. Physical deconditioning requested for PT OT eval; social media editor to ass ist with disposition Code Visit Inpatient E&M: 70584 Subs Hosp L3
--- NOTE | 2019-03-18 08:46 | NURSING ---
received call from precipitator supervisor whom talked w/ pt's sister gogo mao verbalizing concern regarding pt. stating pt is not an alcoholic and this is a total change in behavior and requesting to talk w/ someone/physician about pt. discussed this with pt and he is agreeable to have physician talk with sister and information be given. informed of above request verbalized OK. Gogo Mao [phone]
[2019-03-18] MEDS: Folic Acid 1 MG Tablet PO (08:51)
[2019-03-18] MEDS: Multivitamins,Therapeutic Tablet 1 TABLET PO (08:51)
[2019-03-18] MEDS: Pantoprazole Sodium 40 MG Tablet PO (08:51)
[2019-03-18] MEDS: Thiamine Hydrochloride 100 MG Tablet PO (08:51)
[2019-03-18] MEDS: Furosemide 40 MG Tablet PO (08:51)
[2019-03-18] MEDS: Ensure Clear 120 ML Liquid PO (08:52)
[2019-03-18] MEDS: oxyCODONE 5 MG Tablet PO (08:53)
[2019-03-18] MEDS: Acetaminophen 500 MG Tablet PO (09:57)
--- NOTE | 2019-03-18 11:57 | CT_ITS ---
STUDY: CT ABDOMEN WITH CONTRAST REASON FOR EXAM: Male, 58 years old. Pancreatitis. RADIATION DOSAGE (If Supplied By Facility): CTDIvol = ( 12.82 ) mGy, DLP = ( 868.45 ) mGycm TECHNIQUE: Transaxial images were obtained post I.V. administration of 100 IV/Oral Isovue 300, and with oral contrast. Sagittal and coronal images were reconstructed. Individualized dose optimization techniques were used for this CT. COMPARISON: Comparison is made with prior study dated March 13, 2015. FINDINGS: There now is evidence of small bilateral pleural effusions with underlying basilar atelectasis is worse in the left lower lobe. The visualized portions of the heart are within normal limits. Stable subcentimeters cyst in the anterior left lobe of the liver. Normal gallbladder and extrahepatic biliary system. Normal spleen. Since prior study, there has been progressive fluid collection in the air collection within the body head and tail portions of the pancreas. Fluid collection with air is also seen in the lesser sac. This is suggestive of necrotizing pancreatitis. Minimal degree of left perinephric stranding. Normal bilateral adrenal glands. Normal right kidney. Normal left kidney. Normal visualized stomach. Normal small intestine. Normal colon. The appendix is visualized and appears normal. There is scattered atherosclerotic calcification of the abdominal aorta, without a demonstrated aneurysm. Normal inferior vena cava. Normal retroperitoneum. Normal abdominal wall. Normal osseous structures. CT/Abdomen WITH IV Contrast IMPRESSION: New small bilateral pleural effusions with underlying atelectasis and/or infiltration. 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 There is progressive cystic changes in the pancreas with fluid and air collections. This goes down into the root of the mesentery as well as into the lesser sac. Electronically Signed: Tyrone Melvin, at 14:37 EDT , Service support ,
[2019-03-18] MEDS: 0.9% NaCl Peripheral Flush Adult/Peds IV ×3 (16:45→18:35)
--- NOTE | 2019-03-18 17:44 | DCINST_ITS ---
- Discharge Diagnoses Current Active Problems: Current Active and Chronic Problems Pancreatitis (Acute) Allergies/Adverse Reactions: Allergies No Known Allergies Allergy (Verified 03/13/19 05:15) Primary Care Physician: Ziggy Smith MD [Primary Care Provider] - Test Results: Test results from this visit will be discussed in further detail at your follow- up appointment, if applicable. Proposed Discharge Date: 03/18/19
--- NOTE | 2019-03-18 17:48 | DS.PCM_ITS ---
Discharge Date and Diagnosis - Problem List Patient Problems: Active and Suspected Problems Pancreatitis (Acute) Date of Admission: 03/13/19 Date of Discharge: 03/18/19 - Primary Discharge Diagnosis Active and Suspected Problems Pancreatitis (Acute) Hospital Course and Treatment Imaging Results: 03/18/19 11:57 CT Abd [Abdomen WITH IV Contrast] [CT] Urgent Summary of Care Provided: Patient is a 58-year-old gentleman with history of intermittent alcohol use who presented with severe abdominal pain. Patient was found to have pancreatitis with lipase levels of [address] of the abdomen and pelvis obtained also demonstrated pancreatic edema consistent with acute pancreatitis admitted to regular nursing floor for conservative management 1. Acute pancreatitis: Suspected to be secondary to alcohol induced: Patient has been admitted to regular nursing floor for conservative management with pain meds, antinausea medication and bowel rest. Patient progress is rather been slow which is expected given the extent of his pancreatitis as evidenced on the CAT scan.. Patient was started on clear liquids beginning 03/16/2019. Patient pain however recurred on 03/18/2019 necessitating repeat CAT scan which demonstrated evidence of necrotizing pancreatitis. Based on the findings decision was made to transfer the patient to a tertiary care center call was placed patient admitted to the [facility] for subsequent care 2. Acute congestive heart failure with preserved ejection fraction possibly precipitated by patient aggressive IV fluid resuscitation. Chest x-ray obtained 03/16/2019 demonstrated Mild CHF with the pleural parenchymal changes at the left lung base and small right pleural effusion. Patient was started on Lasix with good response 3. Acute delirium secondary to suspected acute alcohol withdrawal patient was placed on Librium taper 4. Hypokalemia corrected per protocol 5. Acute duodenitis; patient is on PPI 6. Alcohol abuse: Counseled on cessation (patient denies heavy use of alcohol admit to social drinking. Per note from admitting physician patient had drank 6 cans of beer 3 days prior to his admission 7. Tobacco dependence counseled on cessation, offered nicotine patch for tobacco cravings 8. Hyponatremia adjusted patient IV fluids with subsequent monitoring of electrolyte: Resolved 9. DVT prophylaxis SC Lovenox 10. Physical deconditioning requested for PT OT eval; social services specialist to assist with disposition Patient Problems: Active and Suspected Problems Pancreatitis (Acute) - Physical Exam HEENT: Atraumatic Neck: Supple, No JVD Lungs: Diminished Cardiovascular: Normal S1, Normal S2 Abdomen: Tender Extremities: No edema Skin: No rashes Musculoskeletal: - - Full range of motion in all major muscle groups. Psych/Mental Status: Normal Affect, Flat Affect Vital Signs Temp Pulse Resp BP Pulse Ox 97.9 F 70 20 H 145/87 H 93 03/18/19 16:49 03/18/19 16:49 03/18/19 16:49 03/18/19 16:49 03/18/19 16:49 Oxygen Flow Rate (L/min) 2 Oxygen Delivery Method Room Air Weight: 79.38 kg Body Mass Index (BMI) 24.4 Intake and Output for Last 24 Hours 03/16/19 03/17/19 03/18/19 23:59 23:59 23:59 Intake Total 4063 / 4063 3673 / 3673 1626 / 1626 Output Total 850 / 850 650 / 650 3275 / 3275 Balance 3213 / 3213 3023 / 3023 -1649 / -1649 Laboratory Tests Past 24 Hrs 03/18/19 03/18/19 03/18/19 05:40 05:40 09:06 WBC 13.0 H RBC 3.71 L Hgb 10.8 L Hct 32.4 L MCV 87.3 MCH 29.1 MCHC 33.3 RDW 13.6 RDW Differential 42.0 Plt Count 185 MPV 10.1 Immature Gran % (Auto) 0.300 Neut % (Auto) 79.8 H Lymph % (Auto) 7.3 L [place] % (Auto) 11.6 H Eos % (Auto) 0.9 Baso % (Auto) 0.1 Absolute Neuts (auto) 10.4 H Absolute Lymphs (auto) 0.95 Total Counted Not Reportable Sodium 146 H Potassium 2.9 L Chloride 114 H Carbon Dioxide 25.0 Anion Gap 7 BUN 15 Creatinine 0.80 Estim Creat Clear Calc 107.20 Est GFR (MDRD) Af Amer 128 Est GFR (MDRD) Non-Af 106 BUN/Creatinine Ratio 18.8 Glucose 101 Calcium 7.4 L Ammonia 55.0 H Primary Care Physician: Ziggy Smith MD [Primary Care Provider] - Disposition: Home Minutes spent on discharge:: 45 Patient Condition:: Stable Medical Necessity - Tobacco Use Smoking Status: Light Smoker (<10/day) Tobacco Use: Cigarettes Meaningful Use Info Meaningful Use Diagnoses (Choose all that apply): None applicable Code Visit Inpatient E&M: 18406 Disch Hosp
[2019-03-18] MEDS: Morphine 4 MG/ML Syringe IV ×3 (17:49→23:36)
[2019-03-18] MEDS: Potassium Chloride 40 MEQ in Dext 5%-0.45% NS 1,000 ML 150 MEQ IV (18:35)
[2019-03-18] MEDS: Acetaminophen 325 MG Tablet 650 MG PO (20:57)
--- NOTE | 2019-03-19 00:03 | NURSING ---
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 Daughter has pt's keys and wallet. Left cell phone and street clothes here with pt's.
[2019-03-19] MEDS: Potassium Chloride 40 MEQ in Dext 5%-0.45% NS 1,000 ML 150 MEQ IV ×2 (00:47→08:13)
--- NOTE | 2019-03-19 01:51 | NURSING ---
[facility] called to let this nurse know that they do not yet have a bed for pt d/t high census.
[2019-03-19 03:40] VITALS: TEMP 37.1
[2019-03-19 04:03] VITALS: BP 119/63; PULSE 74; RESP 16; TEMP 37.1; O2SAT 93
[2019-03-19] MEDS: Morphine 4 MG/ML Syringe IV ×3 (04:12→11:28)
[2019-03-19 07:09] VITALS: O2SAT 93
--- NOTE | 2019-03-19 07:19 | PN_ITS ---
Patient Problems: Active and Suspected Problems Pancreatitis (Acute) Subjective: Patient seen complains of being restless because he was not able to sleep during the night. 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 Meropenem was started plan is to transfer patient to [facility] once bed becomes available Objective: GENERAL: cooperative, HEENT: Atraumatic; moist oral mucosa EYES; Anicteric, Normal Conjunctiva NECK; supple, normal thyroid, RESPIRATORY: Diminished to auscultation bilaterally, CARDIOVASCULAR: Regular S1 S2, no audible murmurs GI: Severe epigastric tenderness : No Renal angle tenderness; EXTREMITIES: No edema, no clubbing, no cyanosis. MUSCULOSKELETAL: No Joint Tenderness; NEURO: Awake; no lateralizing signs. SKIN: No Rash PSYCH; flat affect Vitals/I&O's: Vital Signs Temp Pulse Resp BP Pulse Ox 98.8 F 74 16 119/63 93 03/19/19 04:03 03/19/19 04:03 03/19/19 04:03 03/19/19 04:03 03/19/19 04:03 Oxygen Flow Rate (L/min) 2 Oxygen Delivery Method Room Air Weight: 79.38 kg Body Mass Index (BMI) 24.4 Intake and Output for Last 24 Hours 03/17/19 03/18/19 03/19/19 23:59 23:59 23:59 Intake Total 3673 / 3673 1626 / 1626 1899 / 1899 Output Total 650 / 650 3275 / 3275 550 / 550 Balance 3023 / 3023 -1649 / -1649 1349 / 1349 Laboratory Results 03/18/19 09:06: Ammonia 55.0 H 03/19/19 06:47: WBC Pending, RBC Pending, Hgb Pending, Hct Pending, MCV Pending, MCH Pending, MCHC Pending, RDW Pending, RDW Differential Pending, Plt Count Pending, Neut % (Auto) Pending, Absolute Neuts (auto) Pending, Total Counted Pending 03/19/19 06:47: Sodium Pending, Potassium Pending, Chloride Pending, Carbon Dioxide Pending, Anion Gap Pending, BUN Pending, Creatinine Pending, Est GFR (MDRD) Af Amer Pending, Est GFR (MDRD) Non-Af Pending, BUN/Creatinine Ratio Pending, Glucose Pending, Calcium Pending Current Medications Acetaminophen (Tylenol) 650 mg PO Q6H PRN PRN PRN Reason: pain/fever Last Admin: 03/18/19 20:57 Dose: 650 mg Al Hydroxide/Mg Hydroxide (Mylanta Ii) 30 ml PO Q6H PRN PRN PRN Reason: dyspesia Last Admin: 03/17/19 12:48 Dose: 30 ml Bisacodyl (Dulcolax) 10 mg RECTAL DAILY PRN PRN Reason: Constipation Dextrose (D50w Syringe) 0 gm IV X1 PRN; Protocol PRN Reason: Hypoglycemia Enoxaparin Sodium (Lovenox) 40 mg SC DAILY@1000 NEIL Last Admin: 03/18/19 08:53 Dose: Not Given Glucagon () 1 mg IM .X1 PRN PRN Reason: Hypoglycemia Meropenem 1 gm/ Sodium (Chloride) 120 mls @ 33 mls/hr IV Q8 [facility] Last Admin: 03/19/19 05:11 Dose: 33 mls/hr Potassium Chloride 40 meq/ (Dextrose/Sodium Chloride) 1,020 mls @ 150 mls/hr IV .Q6H48M [facility] Stop: 03/19/19 12:49 Last Admin: 03/19/19 00:47 Dose: 150 mls/hr Pantoprazole Sodium 40 mg/ (Sodium Chloride) 110 mls @ 330 mls/hr IV Q12 [facility] Last Admin: 03/18/19 21:00 Dose: 330 mls/hr Loperamide HCl (Imodium) 2 - 4 mg PO UD PRN PRN Reason: LOOSE STOOLS Morphine Sulfate () 4 mg IV Q2H PRN PRN PRN Reason: SEVERE PAIN (6-10/10) Last Admin: 03/19/19 04:12 Dose: 4 mg Multivitamins (Multivitamin) 1 tablet PO DAILYCM [facility] Last Admin: 03/18/19 08:51 Dose: 1 tablet Ondansetron HCl (Zofran) 4 mg IV Q6H PRN PRN PRN Reason: NAUSEA/VOMITING Oxycodone HCl (Oxyir) 5 mg PO Q4H PRN PRN PRN Reason: PAIN Last Admin: 03/18/19 08:53 Dose: 5 mg Sodium Chloride () 5 - 15 ml IV UD PRN PRN Reason: SALINE FLUSH Last Admin: 03/18/19 18:35 Dose: 10 ml Medical Necessity - Tobacco Use Smoking Status: Light Smoker (<10/day) Tobacco Use: Cigarettes Assessment/Plan All Active Problems Pancreatitis (Acute) 1. Acute pancreatitis: Suspected to be secondary to alcohol induced: Patient has been admitted to regular nursing floor for conservative management with pain meds, antinausea medication and bowel rest. Patient progress is rather been s low which is expected given the extent of his pancreatitis as evidenced on the CAT scan.. Patient was started on clear liquids beginning 03/16/2019. Patient pain however recurred on 03/18/2019 necessitating repeat CAT scan which demonstrated evidence of necrotizing pancreatitis. Based on the findings decision was made to transfer the patient to a tertiary care center call was placed patient. Awaiting transfer to [facility] once bed becomes available 2. Acute congestive heart failure with preserved ejection fraction possibly precipitated by patient aggressive IV fluid resuscitation. Chest x-ray obtained 03/16/2019 demonstrated Mild CHF with the pleural parenchymal changes at the left lung base and small right pleural effusion. Patient was started on Lasix with good response 3. Acute delirium secondary to suspected acute alcohol withdrawal patient was placed on Librium taper 4. Hypokalemia corrected per protocol 5. Acute duodenitis; patient is on PPI 6. Alcohol abuse: Counseled on cessation (patient denies heavy use of alcohol admit to social drinking). Per note from admitting physician patient had drank 6 cans of beer 3 days prior to his admission 7. Tobacco dependence counseled on cessation, offered nicotine patch for tobacco cravings 8. Hyponatremia adjusted patient IV fluids with subsequent monitoring of electrolyte: Resolved 9. DVT prophylaxis SC Lovenox 10. Physical deconditioning requested for PT OT eval; manager social media to assist with disposition Code Visit Inpatient E&M: 55856 Subs Hosp L2
[2019-03-19 07:31] LABS: Absolute Lymphocyte Count 1.18 X10^3/ul (0.83-4.51); Absolute Neutrophil Count 12.6 X10^3/uL (2.0-7.7); Basophil# 0.01 X10^3/uL; Basophil% 0.1 % (0-1); Differential Indicated SCAN CRITERIA MET; Eosinophil# 0.17 X10^3/uL; Eosinophils% 1.1 % (0-5); Hematocrit 33.1 % (40-54); Hemoglobin 11.3 g/dl (13.0-16.5); Lymphocyte # 1.18 X10^3/ul (4.0); Lymphocyte % 7.4 % (19-41); Mean Corp Hgb Conc 34.1 g/gl (32-36); Mean Corpuscular Hgb 29.4 pg (27.0-32.0); Monocyte# 1.99 X10^3/uL; Monocyte% 12.4 % (0-10); Neutrophil % 78.6 % (47-70); POSITIVE COUNT NO; POSITIVE DIFFERENTIAL YES; POSITIVE MORPHOLOGY NO; Platelet Count 235 K/mm3 (150-450); RBC Distribution Width CV 13.4 % (11.6-14.6); RBC Distribution Width SD 41.3 fl (35.1-43.9); Red Blood Count 3.85 M/mm3 (4.6-6.2)
[2019-03-19 07:39] LABS: Anion Gap 4 (5-15); BUN 9 mg/dL (7-18); BUN/Creat Ratio 10.8 RATIO (10-20); Calcium,Total 7.4 mg/dL (8.5-10.1); Chloride 110 mmol/L (98-107); Creatinine, Serum 0.84 mg/dL (0.70-1.30); EST Glomerular Filtration Rate 100 mL/min (>60); Est Glom Filt Rate - Afr Amer 121 mL/min (>60); Estimated Creatinine Clearance 102.09 ml/min; Glucose 120 mg/dL (74-106); Potassium 3.2 mmol/L (3.5-5.1); Sodium Level 141 mmol/L (136-145)
[2019-03-19 07:53] VITALS: BP 139/85; PULSE 88; RESP 20; TEMP 37.7; O2SAT 95
[2019-03-19] MEDS: 0.9% NaCl Peripheral Flush Adult/Peds IV ×2 (08:03→11:28)
--- NOTE | 2019-03-19 08:15 | NURSING ---
echo in progress at bedside.
[2019-03-19 08:35] LABS: Differential Comment SCANNED
--- NOTE | 2019-03-19 09:47 | NURSING ---
perez faxed to [facility] for hospital transfer, fax to : [phone] 0940: received call from [facility] bed available and accepting doctor , Accepting doctor: maxwell [facility] Accepting bed: 629A Unit : medsurg 6 west call report to [phone]
--- NOTE | 2019-03-19 11:00 | NURSING ---
Report called to Paddy SHEEHAN on [facility] 6 . Work cell number given in case further questions arise.
[2019-03-19 13:52] LABS: Lipase 438 U/L (73-393); Magnesium 2.3 mg/dL (1.6-2.6)
== END 2019-03-19 11:35 | disposition short-term general hospital (02) | DRG 438 ==
LOC: ED 05:32 → MS3 07:28
PROVIDERS: Emergency Provider Emergency Medicine; Family Provider Family Medicine; PCP Family Medicine; Visit Provider Internal Medicine
DX: K85.91 Acute pancreatitis with uninfected necrosis, unspecified (principal); I50.31 Acute diastolic (congestive) heart failure; E87.1 Hypo-osmolality and hyponatremia; F10.239 Alcohol dependence with withdrawal, unspecified; R41.0 Disorientation, unspecified; E87.6 Hypokalemia; K29.80 Duodenitis without bleeding; F17.210 Nicotine dependence, cigarettes, uncomplicated
CPT/HCPCS: 36415; 71045; 74160; 74177; 76705; 80048; 80053; 80076; 81001; 82140; 83605; 83690; 83735; 85025; 93306; 97161; 97165; 99284; 99406; J2185; J7030; J7040; Q9957; Q9967; A4216; C8929; J1940; J2405; J7799

== ENCOUNTER 2019-07-10 01:34 | Emergency (ER) | payer OTHER, SELFPAY ==
[2019-07-10] VITALS (7 sets, daily range): BP systolic 95–138; BP diastolic 67–86; PULSE 63–85; RESP 16–28; TEMP 36.4; O2SAT 93–100; BMI 24.3; BMI 26.7
--- NOTE | 2019-07-10 01:54 | EKG12_ITS ---
Test Reason : CP Blood Pressure : / mmHG Vent. Rate : 074 BPM Atrial Rate : 074 BPM P-R Int : 138 ms QRS Dur : 096 ms QT Int : 448 ms P-R-T Axes : 040 053 065 degrees QTc Int : 497 ms Normal sinus rhythm Prolonged QT Abnormal ECG Confirmed by CARTER VILLAVICENCIO, CARLOS ([id number]), editor department MIGUEL PETERSEN ([id number]) on 07/13/2019 11:55:22 AM Referred By: DEANNA Confirmed By:ANAID MACHADO MD
--- NOTE | 2019-07-10 01:55 | RAD_ITS ---
STUDY: X-RAY CHEST REASON FOR EXAM: Male, 58 years old. Chest pain, short of breath TECHNIQUE: PA and lateral chest COMPARISON: 03/17/2019 FINDINGS: The lungs are clear and expanded. There is no demonstrated pleural abnormality. Normal size heart. Normal mediastinum and radha. Normal visualized pulmonary arteries. Normal visualized aortic arch and descending thoracic aorta. Normal visualized thoracic spine. There is stable deformity left scapula.. There is tubing overlying the upper abdomen only partially included on the [id number]. RAD/Chest PA and Lateral IMPRESSION: No acute process Stable deformity of the left scapula, secondary to old trauma and/or bony exostosis Tubing over the upper abdomen only partially included on the [id number] which may represent a drainage catheter or common bile duct stent less likely Electronically Signed: Lakhwinder Angela, at 3:32 EDT Tel , Service support ,
--- NOTE | 2019-07-10 01:57 | ED.DCSUM_ITS ---
- ER Visit Summary Date of Service: 07/10/19 Chief Complaint: Chest pain History of Present Illness: The patient is a 58 M who presents with chest pain that began tonight approximately 30 minutes prior to arrival. Patient states he took a dose of Benadryl prior to the chest pain starting. Patient states he took it because he wanted help going to sleep. Patient describes it as an aching like a charley horse in his chest. Patient also describes as a tightness in his upper chest. Patient states nothing makes it better or worse. Patient admits to some shortness of breath and feels like he is having a sweat. Patient also admits to some lightheadedness and dizziness. Patient denies any cardiovascular PE risk factors. Patient states he has a history of pancreatitis and was admitted to the hospital here in February of this year. Physical Examination: Vital signs are stable except for mild tachypnea of 28. Patient is afebrile. Patient is anxious on examination but no acute distress. Oral mucosa is pink and moist. Neck is supple. Trachea is midline. There is no JVD noted. Heart was regular rate and rhythm. Lungs are clear and equal bilaterally. Abdomen is soft. Bowel sounds are normal. There is mild epigastric tenderness. Skin is warm dry. Skin is jaundiced. Cranial nerves II through XII are intact. There are no focal motor or sensory deficits noted. Test Results: EKG showed normal sinus rhythm with a rate of 74. There is motion artifact. There are no acute ST or T wave changes. Comprehensive metabolic profile showed a bilirubin of 3.1. Alk phos, AST, and ALT were also all elevated. These are new compared to previous results. Lipase was elevated at 1881. CBC showed a mild leukocytosis. CT scan of the abdomen and pelvis was obtained. There is masslike prominence of the pancreatic head with peripancreatic inflammation. Common bile duct stent is in place with intrahepatic biliary ductal dilatation. There is also portal venous gas throughout the left hepatic lobe. There is questionable pneumatosis in the anterior gastric wall. Emergency Department Course and Treatment: Patient was given aspirin and IV fluids here. Patient was given sublingual nitroglycerin. Patient was given a dose of Ativan here. Patient was still having pain with this. Patient was given a dose of morphine here. Patient was advised of his results. Since the patient had been to [facility] for this in the past and sees a sensitized paper tester, Dr. Wheeler, at [facility]. He requested to go back to [facility] for further treatment. Case was discussed with Dr. Youngblood in the emergency department. He accepted the transfer of the patient. Patient will be transferred to the emergency department there. Patient understood and was agreeable with the plan. All questions were answered. Disposition: Transfer to [facility] Impression: Acute pancreatitis This note was generated with [employer] dictation software. It may contain incorrect words, spelling, and punctuation that were not noted in review of the chart prior to signing ED Disposition - Plan for ED Patient: Disposition: [facility] Diagnosis: Pancreatitis Referrals: Ziggy Smith MD [Primary Care Provider] -
[2019-07-10 02:03] LABS: Absolute Lymphocyte Count 3.56 X10^3/uL (0.83-4.51); Basophil# 0.07 X10^3/uL; Basophil% 0.5 % (0-1); Eosinophil# 0.34 X10^3/uL; Eosinophils% 2.4 % (0-5); Hematocrit 43.6 % (40-54); Hemoglobin 14.6 g/dL (13.0-16.5); Lymphocyte # 3.56 X10^3/ul (4.0); Lymphocyte % 24.9 % (19-41); Mean Corp Hgb Conc 33.5 g/dL (32-36); Mean Corpuscular Hgb 28.6 pg (27.0-32.0); Mean Corpuscular Volume 85.5 fL (80-94); Mean Platelet Vol. 10.4 fl (6.2-12.0); Monocyte# 1.25 X10^3/uL; Monocyte% 8.7 % (0-10); NRBC Flagged by Analyzer 0 % (0-5); Neutrophil # 9.03 X10^3/uL (2.7-7.7); Neutrophil % 63.2 % (47-70); Platelet Count 305 K/mm3 (150-450); RBC Distribution Width CV 18.6 % (11.6-14.6); RBC Distribution Width SD 58.3 fl (35.1-43.9); White Blood Count 14.3 K/mm3 (4.4-11.0)
[2019-07-10] MEDS: Aspirin 81 MG TAB.CHEW 324 MG PO (02:05)
[2019-07-10] MEDS: LORazepam 2 MG/ML Syringe 0.5 MG IV (02:05)
[2019-07-10] MEDS: 0.9% Normal Saline 1,000 ML 1000 ML IV (02:06)
[2019-07-10 02:09] LABS: International Normalized Ratio 0.9; Prothrombin Time (Protime)PT. 12.4 SECONDS (11.7-14.9)
[2019-07-10 02:18] LABS: ALB/GLOB Ratio 0.8 RATIO (0.9-2.4); AST(SGOT) 103 U/L (15-37); Alanine Aminotransfer ALT/SGPT 219 U/L (16-61); Albumin, Serum 3.4 g/dL (3.2-5.0); Alkaline Phosphatase 346 U/L (45-117); Anion Gap 9 (5-15); BUN 16 mg/dL (7-18); Chloride 109 mmol/L (98-107); Creatinine, Serum 0.94 mg/dL (0.70-1.30); EST Glomerular Filtration Rate 87 mL/min (>60); Est Glom Filt Rate - Afr Amer 106 mL/min (>60); Estimated Creatinine Clearance 91.23 ml/min; Globulin 4.5 g/dL (2.2-4.2); Glucose 109 mg/dL (74-106); Lipase 1881 U/L (73-393); Potassium 2.8 mmol/L (3.5-5.1); Protein, Total 7.9 g/dL (6.4-8.2); Sodium Level 140 mmol/L (136-145)
[2019-07-10] MEDS: Morphine 4 MG/ML Syringe IV (02:23)
--- NOTE | 2019-07-10 02:23 | CT_ITS ---
STUDY: CT ABDOMEN AND PELVIS WITHOUT CONTRAST REASON FOR EXAM: Male, 58 years old. Elevated white blood cell count, lipase, and bilirubin levels. RADIATION DOSAGE (If Supplied By Facility): CTDIvol = ( 6.21 ) mGy, DLP = ( 651.60 ) mGycm TECHNIQUE: Transaxial images were obtained from the dome of the diaphragm to the symphysis pubis without oral contrast, and without intravenous contrast. Sagittal and coronal images were reconstructed. Individualized dose optimization techniques were used for this CT. COMPARISON: None. FINDINGS: The visualized lung bases are unremarkable. The visualized portions of the heart are within normal limits. No hepatic parenchymal lesion. Portal venous gas noted throughout the left hepatic lobe. Moderate intrahepatic biliary duct dilatation. Common bile duct stent is in place. Normal spleen. There is prominence of the pancreatic head and neck, concerning for underlying mass. Mild peripancreatic inflammatory stranding is noted. Normal bilateral adrenal glands. Normal right kidney. Normal left kidney. Questionable pneumatosis in the anterior gastric wall. Normal small intestine. Normal colon. Appendix is not visualized. Mild atherosclerotic plaque within the abdominal vasculature. Normal inferior vena cava. Normal retroperitoneum. Normal urinary bladder. Moderate prostatomegaly. Normal abdominal wall. Normal osseous structures. CT/Abdomen/Pelvis without Cont IMPRESSION: 1. Masslike prominence of the pancreatic head with mild peripancreatic inflammation, with common bile duct stent in place, and with moderate intrahepatic biliary duct dilatation. 2. Portal venous gas throughout the left hepatic lobe with questionable pneumatosis in the anterior gastric wall. 3. Moderate prostatomegaly. Electronically Signed: Mason Orellana MD at 4:25 EDT Tel , Service support ,
[2019-07-10] MEDS: Potassium Chloride 10mEq/100mL 10 MEQ/100 ML IV.SOLN. 100 MEQ IV BOLUS (02:53)
[2019-07-10 04:00] LABS: Bacteria 0 SEEN /hpf (None Seen); Mucous, Urine 0 SEEN /hpf (<or=2+); Red Blood Cells-Urine 0 SEEN /hpf (0-5); Squamous Epithelial Cells - UA 0 SEEN /hpf (0-5); White Blood Cells 0 SEEN /hpf (0-5)
--- NOTE | 2019-07-10 04:00 | ED.RN ---
Called CT for results. pathology manager will call and inquire because it should have been read by now.
[2019-07-10 04:03] LABS: Color, Urine Yellow (Yellow); Glucose, Dipstick Normal (Normal); Ketone-Dipstick Negative (Negative); Leukocyte Esterase-Dipstick Negative /ul (Negative); Nitrite-Dipstick Negative (Negative); Occult Blood-Urine Negative /ul (Negative); Protein-Dipstick Negative (Negative); Specific Gravity, Urine 1.015 (1.002-1.030); Urine Bilirubin Dipstick Negative (Negative); Urine Clarity Clear (Clear); Urine Urobilinogen Normal (Normal)
[2019-07-10 04:18] LABS: Calcium Oxalate Crystals Ur 2+ /hpf (<or=2+)
== END 2019-07-10 08:55 | disposition short-term general hospital (02) ==
PROVIDERS: Emergency Provider Emergency Medicine; Family Provider Family Medicine; PCP Family Medicine
DX: K85.90 Acute pancreatitis without necrosis or infection, unspecified (principal)
CPT/HCPCS: 71046; 74176; 80053; 81001; 83690; 84484; 85025; 85610; 85730; 93005; 96361; 96365; 96375; 99285; J7030; A4216

== ENCOUNTER 2019-07-27 17:54 | Emergency (ER) | payer OTHER, SELFPAY ==
[2019-07-10 01:36] VITALS: BMI 26.7
[2019-07-27 17:55] VITALS: BP 129/84; PULSE 70; RESP 14; TEMP 36.3; O2SAT 96; BMI 21.9
--- NOTE | 2019-07-27 18:26 | RAD_ITS ---
STUDY: X-RAY - LEFT HUMERUS REASON FOR EXAM: Male, 58 years old. Inability to remove PICC line TECHNIQUE: 2 view(s) of the humerus. COMPARISON: None. FINDINGS: Normal visualized humerus. There is no demonstrated fracture or osseous destructive process. PICC line is noted terminating in the vicinity of the axillary vein at the junction of the subclavian RAD/Humerus min 2 Views IMPRESSION: PICC line noted with tip at the axillary subclavian venous junction Electronically Signed: Mook Gutiérrez MD at 19:10 EDT , Service support ,
--- NOTE | 2019-07-27 18:27 | ED.DCSUM_ITS ---
History of Present Illness Chief Complaint: General Illness Detail of Chief Complaint: PICC line stuck Informant: Patient Onset: Today Current Severity: Mild Maximum Severity: Mild Narrative: Patient has had a PICC line for treatment of bacteremia. His last dose of antibiotics was yesterday. Nurse attempted to remove the PICC line today but met resistance. She believes only a few centimeters of the line are still in place. He was sent to the emergency room. She denies any complaints. Past Medical History - Allergies and Home Meds Allergies/Adverse Reactions: Allergies amoxicillin [From Augmentin] Allergy (Verified 07/27/19 17:54) Swelling clavulanic acid [From Augmentin] Allergy (Verified 07/27/19 17:54) Swelling hydromorphone [From Dilaudid] Adverse Reaction (Verified 07/27/19 17:54) Other Primary Care Physician: Ziggy Smith MD [Primary Care Provider] - Prior records reviewed: Yes Past Medical History: - - Reviewed Smoking Status: Former smoker Review of Systems General: Denies: Chills, Fever Eyes: Denies: Visual changes - bilaterally ENT: Denies: Bilateral ear pain Cardiovascular: Denies: Chest pain Respiratory: Denies: Dyspnea Gastrointestinal: Denies: Abdominal pain Musculoskeletal: Denies: Back pain Skin: Denies: Rash Neurological: Denies: Headache Physical Exam Vital Signs/Narrative: Vital Signs Temp Pulse Resp BP Pulse Ox 07/27/19 17:55 97.3 F L 70 14 129/84 H 96 Inital Vital Signs reviewed: Yes General: Well nourished, Well developed Head: Normocephalic Eyes: Perrl ENT: Moist mucous membranes Neck: Supple Cardiovascular: Regular rate, Regular rhythm Respiratory: No distress, CTA bilaterally Abdomen: Soft, Nontender Extremities: - - PICC line is in place to the left upper arm. Majority the PICC line is out and is taped to the forearm. Skin: Normal color Neurological: Alert, Oriented x3 Psychological: Normal affect Diagnostic/Tx/Re-eval Impressions Humerus X-Ray 07/27/19 18:26 IMPRESSION: PICC line noted with tip at the axillary subclavian venous junction Electronically Signed: Mook Gutiérrez MD at 19:10 EDT , Service support , 07/27/19 18:26 Humerus min 2 Views [RAD] Stat - Medical Decision Making Nursing staff attempted to remove the PICC line but stated did not budge. X- ray is obtained. This reveals the tip of the PICC line to still be present in the axillary region. PICC line company was contacted. We were advised to have the patient wrap his arm in warm blankets. They presented to the emergency room and were able to remove the PICC line without great difficulty. Wound care was discussed with the patient. Impression: PICC line removal ED Disposition - Plan for ED Patient: Disposition: Home or Assisted Living Diagnosis: PIC line (peripherally inserted central catheter) removal Instructions: Wound Care Referrals: Ziggy Smith MD [Primary Care Provider] -
[2019-07-27 21:58] VITALS: BP 139/100; PULSE 68; RESP 18; O2SAT 97
== END 2019-07-27 22:00 | disposition home or self-care (01) ==
PROVIDERS: Emergency Provider Emergency Medicine; Family Provider Family Medicine; PCP Family Medicine
DX: Z45.2 Encounter for adjustment and management of vascular access device (principal)
CPT/HCPCS: 73060; 99282

== ENCOUNTER 2019-10-12 01:35 | Emergency (ER) | payer OTHER, SELFPAY ==
[2019-10-12 01:35] VITALS: BP 144/84; PULSE 66; RESP 16; TEMP 36.3; O2SAT 98; BMI 23.4
--- NOTE | 2019-10-12 01:48 | ED.DCSUM_ITS ---
History of Present Illness Chief Complaint: Abd Pain Narrative: Patient is a 58-year-old male who presents with epigastric abdominal pain. This began about 2 to 3 hours ago. His pain is tight and cramping across the upper abdomen. It was a 6-7 at home but is currently only mild. He reports mild nausea, no vomiting. No fevers. No chest pain or shortness of breath. He does have a history of pancreatitis and also later developed bacteremia and needed readmitted. About 1 month ago he had a cholecystectomy. He did have biliary sludge and biliary calculi. No diarrhea. Patient otherwise has been well recently. He denies alcohol use. Patient states he thinks his symptoms may have just been from eating some bad chili but given his history he was concerned so wanted evaluated. Past Medical History - Allergies and Home Meds Allergies/Adverse Reactions: Allergies amoxicillin [From Augmentin] Allergy (Verified 10/12/19 01:38) Swelling clavulanic acid [From Augmentin] Allergy (Verified 10/12/19 01:38) Swelling hydromorphone [From Dilaudid] Adverse Reaction (Verified 10/12/19 01:38) Other Primary Care Physician: Ziggy Smith MD [Primary Care Provider] - Past Medical History: - - History of pancreatitis Surgical History: appendectomy, cholecystectomy Smoking Status: Never smoker Review of Systems All systems negative except as indicated General: Denies: Fever Eyes: Denies: Visual changes - bilaterally ENT: Denies: Bilateral ear pain Cardiovascular: Denies: Chest pain Respiratory: Denies: Dyspnea Gastrointestinal: Reports: Abdominal pain, Nausea. Denies: Vomiting, Diarrhea Musculoskeletal: Denies: Myalgias, Arthralgias Skin: Denies: Rash Neurological: Denies: Headache Allergy: Denies: Uticaria Physical Exam Vital Signs/Narrative: Vital Signs Temp Pulse Resp BP Pulse Ox 10/12/19 01:35 97.4 F L 66 16 144/84 H 98 Inital Vital Signs reviewed: Yes General: Well nourished, Well developed Head: Normocephalic Eyes: EOMI ENT: Moist mucous membranes Neck: Supple Cardiovascular: Regular rate, Regular rhythm Respiratory: No distress, CTA bilaterally Abdomen: Soft, Nondistended, Tender, - - Mild epigastric tenderness without guarding without rebound. Negative for: Nontender, Guarding Skin: Normal color Neurological: Alert Psychological: - - Anxious Diagnostic/Tx/Re-eval Laboratory Results 10/12/19 10/12/19 01:45 01:45 WBC 10.3 RBC 4.95 Hgb 14.4 Hct 43.3 MCV 87.5 MCH 29.1 MCHC 33.3 RDW Std Deviation 42.6 RDW Coeff of Ghanshyam 13.2 Plt Count 178 MPV 9.9 Immature Gran % (Auto) 0.200 Neut % (Auto) 66.3 Lymph % (Auto) 20.5 [place] % (Auto) 10.5 H Eos % (Auto) 2.1 Baso % (Auto) 0.4 Absolute Neuts (auto) 6.8 Absolute Lymphs (auto) 2.12 Nucleated RBC % 0 Sodium 142 Potassium 3.8 Chloride 109 H Carbon Dioxide 26.0 Anion Gap 7 BUN 16 Creatinine 1.03 Estim Creat Clear Calc 83.26 Est GFR (MDRD) Af Amer 95 Est GFR (MDRD) Non-Af 79 BUN/Creatinine Ratio 15.5 Glucose 98 Calcium 9.2 Total Bilirubin 0.70 AST 31 ALT 69 H Alkaline Phosphatase 135 H Total Protein 7.9 Albumin 4.0 Globulin 3.9 Albumin/Globulin Ratio 1.0 Lipase 5231 H - Medical Decision Making Patient was given IV fluids and laboratory studies were sent. Patient declined any medications. Labs did return notable for a lipase of 5231. On further history patient does have a history of obstructive jaundice and had a pancreatic stent and CAD. This is since been removed. However given his prior history I did feel he would best be served by transfer back to [facility] in case he would need intervention again. Patient is agreeable to this plan. I spoke to the [facility] transfer line and was called back with an accepting physician. ED Disposition - Plan for ED Patient: Disposition: [facility] Diagnosis: Pancreatitis Referrals: Ziggy Smith MD [Primary Care Provider] -
[2019-10-12 01:51] LABS: Absolute Lymphocyte Count 2.12 X10^3/uL (0.83-4.51); Absolute Neutrophil Count 6.8 X10^3/uL (2.0-7.7); Basophil# 0.04 X10^3/uL; Basophil% 0.4 % (0-1); Eosinophil# 0.22 X10^3/uL; Eosinophils% 2.1 % (0-5); Hematocrit 43.3 % (40-54); Hemoglobin 14.4 g/dL (13.0-16.5); Lymphocyte # 2.12 X10^3/ul (4.0); Lymphocyte % 20.5 % (19-41); Mean Corp Hgb Conc 33.3 g/dL (32-36); Mean Corpuscular Hgb 29.1 pg (27.0-32.0); Mean Corpuscular Volume 87.5 fL (80-94); Mean Platelet Vol. 9.9 fl (6.2-12.0); Monocyte# 1.08 X10^3/uL; Monocyte% 10.5 % (0-10); NRBC Flagged by Analyzer 0 % (0-5); Neutrophil # 6.84 X10^3/uL (2.7-7.7); Neutrophil % 66.3 % (47-70); Platelet Count 178 K/mm3 (150-450); RBC Distribution Width CV 13.2 % (11.6-14.6); RBC Distribution Width SD 42.6 fl (35.1-43.9); Red Blood Count 4.95 M/mm3 (4.6-6.2); White Blood Count 10.3 K/mm3 (4.4-11.0)
[2019-10-12] MEDS: 0.9% Normal Saline 1,000 ML 999 ML IV (01:54)
[2019-10-12 02:09] LABS: AST(SGOT) 31 U/L (15-37); Alanine Aminotransfer ALT/SGPT 69 U/L (16-61); Alkaline Phosphatase 135 U/L (45-117); Anion Gap 7 (5-15); BUN 16 mg/dL (7-18); BUN/Creat Ratio 15.5 RATIO (10-20); Calcium,Total 9.2 mg/dL (8.5-10.1); Chloride 109 mmol/L (98-107); Creatinine, Serum 1.03 mg/dL (0.70-1.30); EST Glomerular Filtration Rate 79 mL/min (>60); Est Glom Filt Rate - Afr Amer 95 mL/min (>60); Estimated Creatinine Clearance 83.26 ml/min; Globulin 3.9 g/dL (2.2-4.2); Glucose 98 mg/dL (74-106); Lipase 5231 U/L (73-393); Potassium 3.8 mmol/L (3.5-5.1); Protein, Total 7.9 g/dL (6.4-8.2); Sodium Level 142 mmol/L (136-145)
[2019-10-12 03:30] VITALS: BP 150/100; PULSE 66; RESP 16; O2SAT 99
== END 2019-10-12 03:30 | disposition short-term general hospital (02) ==
PROVIDERS: Emergency Provider Emergency Medicine; Family Provider Family Medicine; PCP Family Medicine
DX: K85.90 Acute pancreatitis without necrosis or infection, unspecified (principal)
CPT/HCPCS: 80053; 83690; 85025; 96360; 99285; J7030; A4216

== ENCOUNTER → 2020-05-16 | Outpatient (CLI) | payer OTHER, SELFPAY ==
[2020-05-16 17:52] LABS: ALB/GLOB Ratio 1.4 RATIO (0.9-2.4); AST(SGOT) 20 U/L (15-37); Alanine Aminotransfer ALT/SGPT 35 U/L (16-61); Albumin, Serum 4.4 g/dL (3.2-5.0); Alkaline Phosphatase 88 U/L (45-117); Anion Gap 4 (5-15); BUN 23 mg/dL (7-18); BUN/Creat Ratio 26.1 RATIO (10-20); Calcium,Total 8.7 mg/dL (8.5-10.1); Chloride 109 mmol/L (98-107); Creatinine, Serum 0.88 mg/dL (0.70-1.30); EST Glomerular Filtration Rate 94 mL/min (>60); Est Glom Filt Rate - Afr Amer 114 mL/min (>60); Globulin 3.1 g/dL (2.2-4.2); Glucose 85 mg/dL (74-106); Potassium 3.8 mmol/L (3.5-5.1); Protein, Total 7.5 g/dL (6.4-8.2); Sodium Level 140 mmol/L (136-145)
== END | disposition home or self-care (01) ==
LOC: MTLAB 16:19
PROVIDERS: Referring Provider Internal Medicine Gastroenterology; Visit Provider Internal Medicine Gastroenterology
DX: K85.90 Acute pancreatitis without necrosis or infection, unspecified (principal)
CPT/HCPCS: 36415; 80053

== ENCOUNTER 2021-12-17 15:44 | Inpatient (IN) | payer OTHER, SELFPAY ==
[2021-12-17 15:46] VITALS: BP 156/108; PULSE 69; RESP 19; TEMP 36.7; O2SAT 100; BMI 23.6
--- NOTE | 2021-12-17 15:59 | EKG12_ITS ---
Test Reason : DIZZY Blood Pressure : / mmHG Vent. Rate : 080 BPM Atrial Rate : 080 BPM P-R Int : 136 ms QRS Dur : 106 ms QT Int : 430 ms P-R-T Axes : 075 025 056 degrees QTc Int : 495 ms Normal sinus rhythm Prolonged QT Abnormal ECG Confirmed by ANAT VILLAVICENCIO, CHARLOTTE ([id number]), desk editor BIRGIT GILLIAM ([id number]) on 12/19/2021 7:57:02 AM Referred By: JUAN Confirmed By:CHARLOTTE COPPOLA MD
--- NOTE | 2021-12-17 16:01 | EX.ED.DYSGE1 ---
HPI History of Present Illness Chief Complaint: Weakness Informant: patient Onset/Context/Timing Onset: Today Narrative Narrative: Patient states that he was outside splitting wood with a log splitter today. He became fatigued and short of breath and went inside to rest. At about 30 or 45 minutes he felt better and went back out to work. He again became extremely fatigued and short of breath and states he had a hard time getting back into the house. He denied having chest pain today. He did break out in a sweat. He does note that he had some chest aching last night and took hydrocodone when he went to bed. He woke up this morning with no chest pain and felt well. PFSH [facility] Medical History Anxiety Hx of pancreatitis Home Medications atorvastatin 10 mg PO DAILY 12/17/21 [History Last Taken 12/17/21] hydrocodone-acetaminophen 1 tab PO Q6H PRN 12/17/21 [History Last Taken 12/16/21 23:30] [id number] [Creon] 3 cap PO TIDCM 12/17/21 [History Last Taken 12/17/21] omeprazole 40 mg PO DAILY 12/17/21 [History Last Taken 12/17/21] sertraline 50 mg PO DAILY 12/17/21 [History Last Taken 12/17/21] Allergy/AdvReac Type Severity Reaction Status Date / Time amoxicillin [From Augmentin] Allergy Swelling Verified 12/17/21 15:50 clavulanic acid Allergy Swelling Verified 12/17/21 15:50 [From Augmentin] Penicillins Allergy PT UNSURE Verified 12/17/21 15:51 OF REACTION hydromorphone [From Dilaudid] AdvReac Other Verified 12/17/21 15:50 Family History Father Myocardial infarction Surgical History Hx of cholecystectomy S/P appendectomy Social History Smoking Status: Former smoker ROS ROS ED Constitutional Constitutional ED: Denies chills or fever(s) Eyes Eyes: Denies change in vision ENT ENT ED: Denies sore throat Cardiovascular Cardiovascular: Denies chest pain Respiratory/Chest Respiratory/Chest: Reports dyspnea; Denies cough Gastrointestinal Gastrointestinal: Denies abdominal pain, diarrhea, nausea or vomiting Genitourinary Genitourinary ED: Denies dysuria Musculoskeletal Musculoskeletal: Denies back pain Integumentary Denies rash Neurologic Neurologic: Denies headache(s) or weakness Allergic/Immunologic Allergic/Immunologic ED: Denies urticaria EXAM Physical Exam Const Vital Signs: 12/17/21 15:46 12/17/21 15:53 12/17/21 17:45 Temperature 98.1 F Temperature Source Temporal Pulse Rate 69 69 Respiratory Rate 19 H 14 Respiratory Effort Normal Respiratory Pattern Normal Blood Pressure 156/108 H 155/98 H Blood Pressure Mean 124 117 Pulse Ox 100 98 Oxygen Delivery Method Room Air Nasal Cannula Oxygen Flow Rate (L/min) 2 12/17/21 19:59 Temperature Temperature Source Pulse Rate 75 Respiratory Rate 16 Respiratory Effort Respiratory Pattern Blood Pressure 158/101 H Blood Pressure Mean 120 Pulse Ox 97 Oxygen Delivery Method Room Air Oxygen Flow Rate (L/min) Positive well nourished and well developed General Appearance ED: well developed HEENT Reports moist mucous membranes Eyes PERRL and EOMs intact bilaterally Neck supple Chest Wall inspection of chest normal and palpation of chest normal Resp normal respiratory effort and clear to auscultation bilaterally Cardio regular rate and regular rhythm GI non-tender Palpation: soft Extremity normal to inspection Neuro oriented x3 Sensorium / Orientation: alert Psych mental status grossly normal Skin no rashes or lesions noted MDM MDM MDM Narrative Medical decision making narrative: EKG, chest x-ray, lab work obtained. Lab Data Attestation: I reviewed the patient's lab results. Labs: Laboratory Results - last 24 hr 12/17/21 12/17/21 12/17/21 15:58 15:58 15:58 WBC 9.3 RBC 5.12 Hgb 15.6 Hct 44.0 MCV 85.9 MCH 30.5 MCHC 35.5 RDW Std Deviation 38.2 RDW Coeff of Ghanshyam 12.1 Plt Count 230 MPV 10.3 Immature Gran % (Auto) 0.100 Neut % (Auto) 76.6 H Lymph % (Auto) 15.7 L [place] % (Auto) 6.9 Eos % (Auto) 0.4 Baso % (Auto) 0.3 Absolute Neuts (auto) 7.1 Absolute Lymphs (auto) 1.46 Nucleated RBC % 0 Sodium Cancelled 133 L Potassium Cancelled 3.8 Chloride Cancelled 104 Carbon Dioxide Cancelled 20.0 L Anion Gap Cancelled 9 BUN Cancelled 22 H Creatinine Cancelled 1.20 Estim Creat Clear Calc 68.85 68.85 Est GFR (MDRD) Af Amer Cancelled 79 Est GFR (MDRD) Non-Af Cancelled 65 BUN/Creatinine Ratio Cancelled 18.3 Glucose Cancelled 121 H Calcium Cancelled 9.4 Total Bilirubin 0.70 Cancelled Direct Bilirubin 0.14 AST 30 Cancelled ALT 31 Cancelled Alkaline Phosphatase 100 Cancelled Troponin I High Sens 6 Cancelled Total Protein 8.5 H Cancelled Albumin 4.4 Cancelled Globulin 4.1 Cancelled Albumin/Globulin Ratio Cancelled Lipase > 1500 H 12/17/21 18:52 WBC RBC Hgb Hct MCV MCH MCHC RDW Std Deviation RDW Coeff of Ghanshyam Plt Count MPV Immature Gran % (Auto) Neut % (Auto) Lymph % (Auto) [place] % (Auto) Eos % (Auto) Baso % (Auto) Absolute Neuts (auto) Absolute Lymphs (auto) Nucleated RBC % Sodium Potassium Chloride Carbon Dioxide Anion Gap BUN Creatinine Estim Creat Clear Calc Est GFR (MDRD) Af Amer Est GFR (MDRD) Non-Af BUN/Creatinine Ratio Glucose Calcium Total Bilirubin Direct Bilirubin AST ALT Alkaline Phosphatase Troponin I High Sens 7 Total Protein Albumin Globulin Albumin/Globulin Ratio Lipase Radiography Chest X-Ray - ED: 1 View, Read by ED Physician and Chronic Changes Diagnostic Testing: Clinical Impression(s) from Imaging Studies Chest X-Ray 12/17/21 16:12 IMPRESSION: No acute radiographic abnormalities. Electronically Signed: Aime Baires MD at 16:34 EST , Chest CTA 12/17/21 16:28 IMPRESSION: No evidence of acute pulmonary emboli to the segmental level. 4.3 cm ascending thoracic aortic aneurysm. Partially visualized dilated main pancreatic duct. Correlate with history of malignancy and prior CT abdomen/pelvis dated 07/10/2019. Electronically Signed: Aime Baires MD at 19:35 EST , EKG Initial EKG: Attestation: I personally reviewed and interpreted this EKG as follows: Interpretation: Sinus Rhythm (Sinus 80 with no acute ischemia. QTc 495.) Follow-up EKG: Attestation: I personally reviewed and interpreted this EKG as follows: Interpretation: Sinus Rhythm (Sinus at 71 with no acute ischemia. QTC 506.) Treatment and Re-Evaluation Comments:: I was called to the room shortly after I initially saw the patient stating that he felt like he could not breathe again and was very weak. Vital signs were unremarkable during the episode. He stated he was getting some pain in his lower sternal area and epigastric region. Repeat EKG at this time showed no acute ischemic change. Lab work reviewed and unremarkable. Chest x-ray per my interpretation reveals no acute findings. Radiology interpretation is reviewed. Patient sent for CTA of the chest. This reveals no evidence of PE. He does have an ascending thoracic aortic aneurysm measuring 4.3 cm. Patient's lab work significant for elevated lipase of greater than 1500. He has had multiple bouts of pancreatitis in the past. Patient states he was recently admitted to [facility] because of his pancreas. An MRI of the pancreas at that time was obtained. I was able to print this report out for the hospitalist. I do feel patient warrants observation at least overnight for cycling of enzymes and further observation. He will need repeat lipase values. I will speak with hospitalist. Discharge Plan Triage Chief Complaint: Weakness Other Complaint: Upper Extremity Injury ED Provider: Cathleen Villegas Dx/Rx/DC Orders Clinical Impression: Dyspnea, Pancreatitis Prescriptions: No Action atorvastatin 10 mg tablet 10 mg PO DAILY RF: 0 omeprazole 40 mg capsule,delayed release(DR/EC) 40 mg PO DAILY RF: 0 sertraline 50 mg tablet 50 mg PO DAILY RF: 0 Creon 12,000-38,000 -60,000 unit capsule,delayed release(DR/EC) 3 cap PO TIDCM RF: 0 hydrocodone-acetaminophen 5-325 mg tablet 1 tab PO Q6H PRN (Reason: Pain) RF: 0 Primary Care Provider: Ziggy Smith Referrals: Ziggy Smith MD [Primary Care Provider] - Disposition Disposition: Acute Care Hospital [facility]
[2021-12-17] MEDS: Aspirin 81 MG TAB.CHEW 162 MG PO (16:03)
--- NOTE | 2021-12-17 16:12 | RAD_ITS ---
INDICATION: sob EXAMINATION/TECHNIQUE: X-RAY - XR Chest 1 View COMPARISON: 07/10/2019. FINDINGS: The lungs are clear. The cardiomediastinal silhouette is unremarkable. No pleural effusion or pneumothorax. No acute osseous abnormalities. Stable deformity of the left scapula. RAD/Chest 1 View (Portable) IMPRESSION: No acute radiographic abnormalities. Electronically Signed: Aime Baires MD at 16:34 EST ,
[2021-12-17 16:15] LABS: Absolute Lymphocyte Count 1.46 X10^3/uL (0.83-4.51); Absolute Neutrophil Count 7.1 X10^3/uL (2.0-7.7); Basophil# 0.03 X10^3/uL; Basophil% 0.3 % (0-1); Eosinophil# 0.04 X10^3/uL; Eosinophils% 0.4 % (0-5); Hemoglobin 15.6 g/dL (13.0-16.5); Lymphocyte # 1.46 X10^3/ul (0.83-4.51); Lymphocyte % 15.7 % (19-41); Mean Corp Hgb Conc 35.5 g/dL (32-36); Mean Corpuscular Hgb 30.5 pg (27.0-32.0); Mean Corpuscular Volume 85.9 fL (80-94); Mean Platelet Vol. 10.3 fl (6.2-12.0); Monocyte# 0.64 X10^3/uL; Monocyte% 6.9 % (0-10); NRBC Flagged by Analyzer 0 % (0-5); Neutrophil # 7.09 X10^3/uL (2.7-7.7); Neutrophil % 76.6 % (47-70); Platelet Count 230 K/mm3 (150-450); RBC Distribution Width CV 12.1 % (11.6-14.6); RBC Distribution Width SD 38.2 fl (35.1-43.9); Red Blood Count 5.12 M/mm3 (4.6-6.2); White Blood Count 9.3 K/mm3 (4.4-11.0)
--- NOTE | 2021-12-17 16:28 | CT_ITS ---
INDICATION: pain EXAMINATION: CTA Chest WO/W Contrast Injection TECHNIQUE: Helically acquired images were obtained of the chest following administration of IV contrast. A radiation dose optimization technique was used for this scan. 3D postprocessing images including MIPS were reviewed. IV Contrast dosage and agent: IV 100mL [id number] COMPARISON: None. FINDINGS: Lungs: Unremarkable Mediastinum: The cardiomediastinal silhouette is not enlarged. No mediastinal, hilar or axillary adenopathy. Mild aortic arch and coronary artery calcifications. There is an ascending thoracic aortic aneurysm measuring 4.3 cm. No obvious filling defect seen within the visualized pulmonary arteries. Pleura: Unremarkable Bones/Soft tissues: Mild scattered degenerative changes of the visualized spine. Upper abdomen: The main pancreatic duct is partially visualized and measures 6 mm which is dilated. CT/CTA Chest W/WO Contrast IMPRESSION: No evidence of acute pulmonary emboli to the segmental level. 4.3 cm ascending thoracic aortic aneurysm. Partially visualized dilated main pancreatic duct. Correlate with history of malignancy and prior CT abdomen/pelvis dated 07/10/2019. Electronically Signed: Aime Baires MD at 19:35 EST ,
--- NOTE | 2021-12-17 16:34 | EKG12_ITS ---
Test Reason : SOB Blood Pressure : / mmHG Vent. Rate : 071 BPM Atrial Rate : 071 BPM P-R Int : 138 ms QRS Dur : 106 ms QT Int : 466 ms P-R-T Axes : 074 015 055 degrees QTc Int : 506 ms Normal sinus rhythm Prolonged QT Abnormal ECG Confirmed by ANAT VILLAVICENCIO, CHARLOTTE ([id number]), newspaper or periodical editor BIRGIT GILLIAM ([id number]) on 12/19/2021 7:59:46 AM Referred By: JUAN Confirmed By:CHARLOTTE COPPOLA MD
[2021-12-17 17:35] LABS: Albumin, Serum 4.4 g/dL (3.2-5.0); Globulin 4.1 g/dL (2.2-4.2); Protein, Total 8.5 g/dL (6.4-8.2)
[2021-12-17 17:36] LABS: AST(SGOT) 30 U/L (15-37); Alanine Aminotransfer ALT/SGPT 31 U/L (16-61); Alkaline Phosphatase 100 U/L (45-117); Bilirubin, Direct 0.14 mg/dL (0.00-0.30); Lipase > 1500 U/L (73-393); Troponin-I HS 6 pg/mL (3.0-78.0)
[2021-12-17 17:45] VITALS: BP 155/98; PULSE 69; RESP 14; O2SAT 98
[2021-12-17 18:32] LABS: BUN 22 mg/dL (7-18); Glucose 121 mg/dL (74-106)
[2021-12-17 18:33] LABS: BUN/Creat Ratio 18.3 RATIO (10-20); Calcium,Total 9.4 mg/dL (8.5-10.1); EST Glomerular Filtration Rate 65 mL/min (>60); Est Glom Filt Rate - Afr Amer 79 mL/min (>60); Estimated Creatinine Clearance 68.85 ml/min
[2021-12-17 18:34] LABS: Anion Gap 9 (5-15); Chloride 104 mmol/L (98-107); Potassium 3.8 mmol/L (3.5-5.1); Sodium Level 133 mmol/L (136-145)
[2021-12-17 19:19] LABS: Troponin-I HS 7 pg/mL (3.0-78.0)
[2021-12-17 19:59] VITALS: BP 158/101; PULSE 75; RESP 16; O2SAT 97
--- NOTE | 2021-12-17 20:05 | HP.PCM.HOS_ITS ---
HPI - General General Date of Admission: 12/17/21 Date of Service: 12/17/21 HPI Narrative CHLOE TRIPATHI, is a 61 M with a significant history of recurrent pancre atitis, and cholecystectomy who presents to the emergency department with shortness of breath that started about 2 to 3 hours before presentation. Reportedly patient symptoms started after splitting wood. With rest his symptoms improved. And going back to split more wood his symptoms re-occurred. Also he felt very fatigued and exhausted. Associated with his symptom is lightheadedness. He feels the level of the work he did should not elicit this level of SOB and fatigue as in the recent past he has done more strenuous work without such symptoms. Also he reports that for the past 2 weeks he has had lower substernal sharp pain. He was at [facility] recently and MRI showed a possible pancreatic lesion. He report that his GI doctor is considering an ERCP while his PCP (?) want him to wait for some time. [facility] Medical History Anxiety Hx of pancreatitis Home Medications atorvastatin 10 mg PO DAILY 12/17/21 [History Last Taken 12/17/21] hydrocodone-acetaminophen 1 tab PO Q6H PRN 12/17/21 [History Last Taken 12/16/21 23:30] [id number] [Creon] 3 cap PO TIDCM 12/17/21 [History Last Taken 12/17/21] omeprazole 40 mg PO DAILY 12/17/21 [History Last Taken 12/17/21] sertraline 50 mg PO DAILY 12/17/21 [History Last Taken 12/17/21] Allergy/AdvReac Type Severity Reaction Status Date / Time amoxicillin [From Augmentin] Allergy Swelling Verified 12/17/21 15:50 clavulanic acid Allergy Swelling Verified 12/17/21 15:50 [From Augmentin] Penicillins Allergy PT UNSURE Verified 12/17/21 15:51 OF REACTION hydromorphone [From Dilaudid] AdvReac Other Verified 12/17/21 15:50 Family History Father Myocardial infarction Surgical History Hx of cholecystectomy S/P appendectomy Social History Smoking Status: Former smoker ROS ROS Narrative Constitutional: He reports chills and fatigue. Denies fever, anorexia and change in weight Eyes: Denies blurry vision, change in eye color, change in vision, discharge from eye(s), double vision, erythema, eye pain, loss of vision or other HEENT: Denies abnormal hearing, dysphagia, ear pain, epistaxis, headache(s), hearing loss, nasal congestion, nasal discharge, post nasal drip, sinus pressure, sore throat or other Cardiovascular: He reports chest pain. Reports dyspnea on exertion. Respiratory/Chest: Denies cough, excessive phlegm production, shortness of breath with exertion and wheezing Gastrointestinal: Denies abdominal pain, coffee ground emesis, constipation, diarrhea, dyspepsia, hematemesis, hematochezia, loose stools, melena, nausea, vomiting or other Genitourinary: Denies burning urination, difficulty urinating, dysuria, hematuria, nocturia, urinary frequency, urinary hesitancy, urinary incontinence, urinary urgency or other Musculoskeletal: Denies arthralgias, back pain, joint pain, joint stiffness, joint swelling, myalgias, neck pain or other Neurologic: Patient reports lightheadedness. Denies abnormal gait, abnormal speech, confusion, disequilibrium, focal weakness, headache(s), numbness, paresthesias, seizure-like activity, seizures, syncope, tingling, tremor(s) or other Psychiatric: Denies anxiety, depression, homicidal ideation, suicidal ideation or other Endocrinology: Denies change in body appearance, cold intolerance, excessive sweating, heat intolerance, polydipsia, polyuria or other Hematologic/Lymphatic: Denies anemia, easy bleeding, easy bruising, lym phadenopathy or other Integumentary: Denies rashes Allergic/Immunologic: Denies rhinitis, hives, eczema, asthma or other Vital Signs Vital Signs Vital Signs: 12/17/21 15:46 12/17/21 15:53 12/17/21 17:45 Temperature 98.1 F Temperature Source Temporal Pulse Rate 69 69 Respiratory Rate 19 H 14 Respiratory Effort Normal Respiratory Pattern Normal Blood Pressure 156/108 H 155/98 H Blood Pressure Mean 124 117 Pulse Ox 100 98 Oxygen Delivery Method Room Air Nasal Cannula Oxygen Flow Rate (L/min) 2 12/17/21 19:59 Temperature Temperature Source Pulse Rate 75 Respiratory Rate 16 Respiratory Effort Respiratory Pattern Blood Pressure 158/101 H Blood Pressure Mean 120 Pulse Ox 97 Oxygen Delivery Method Room Air Oxygen Flow Rate (L/min) Weight Weight: 76.6 kg Body Mass Index (BMI) 23.6 Physical Exam Narrative Physical exam: General: Well-nourished, well-developed. Head: Normocephalic, atraumatic, no tenderness Eyes: PERRLA, EOMI ENT, no trauma, moist mucous membranes, no rhinorrhea Neck: Nontender, full range of motion, no spinal tenderness, deformities, step- off CVS: Regular rate and rhythm. S1-S2 present. No murmur, gallop or rub. Respiratory : clear to auscultation bilaterally, chest wall nontender, no wheezing Abdomen: Soft, nontender, nondistended, normal bowel sounds, no masses : Deferred Back: Nontender, no CVA tenderness, no midline spinal tenderness, deformities, step-offs Extremities: Nontender full range of motion, no trauma Skin: Normal color, no trauma, abrasions Neuro: Alert, oriented, cranial nerves II through XII grossly intact. Psychiatry: Normal mood. Normal affect. Not depressed. Not anxious. Results Lab / Micro Data Result Diagrams: 12/17/21 15:58 12/17/21 15:58 Labs: Laboratory Results - last 24 hr 12/17/21 15:58: WBC 9.3, RBC 5.12, Hgb 15.6, Hct 44.0, MCV 85.9, MCH 30.5, MCHC 35.5, RDW Std Deviation 38.2, RDW Coeff of Ghanshyam 12.1, Plt Count 230, MPV 10.3, Immature Gran % (Auto) 0.100, Neut % (Auto) 76.6 H, Lymph % (Auto) 15.7 L, [place] % (Auto) 6.9, Eos % (Auto) 0.4, Baso % (Auto) 0.3, Absolute Neuts (auto) 7.1, Absolute Lymphs (auto) 1.46, Nucleated RBC % 0 12/17/21 15:58: Sodium Cancelled, Potassium Cancelled, Chloride Cancelled, Carbon Dioxide Cancelled, Anion Gap Cancelled, BUN Cancelled, Creatinine Cancelled, Estim Creat Clear Calc 68.85, Est GFR (MDRD) Af Amer Cancelled, Est GFR (MDRD) Non-Af Cancelled, BUN/Creatinine Ratio Cancelled, Glucose Cancelled, Calcium Cancelled, Total Bilirubin 0.70, Direct Bilirubin 0.14, AST 30, ALT 31, Alkaline Phosphatase 100, Troponin I High Sens 6, Total Protein 8.5 H, Albumin 4.4, Globulin 4.1, Lipase > 1500 H 12/17/21 15:58: Sodium 133 L, Potassium 3.8, Chloride 104, Carbon Dioxide 20.0 L , Anion Gap 9, BUN 22 H, Creatinine 1.20, Estim Creat Clear Calc 68.85, Est GFR (MDRD) Af Amer 79, Est GFR (MDRD) Non-Af 65, BUN/Creatinine Ratio 18.3, Glucose 121 H, Calcium 9.4, Total Bilirubin Cancelled, AST Cancelled, ALT Cancelled, Alkaline Phosphatase Cancelled, Troponin I High Sens Cancelled, Total Protein Cancelled, Albumin Cancelled, Globulin Cancelled, Albumin/Globulin Ratio Cancelled 12/17/21 18:52: Troponin I High Sens 7 Radiology Impression Chest X-Ray 12/17/21 16:12 IMPRESSION: No acute radiographic abnormalities. Electronically Signed: Aime Baires MD at 16:34 EST , Chest CTA 12/17/21 16:28 IMPRESSION: No evidence of acute pulmonary emboli to the segmental level. 4.3 cm ascending thoracic aortic aneurysm. Partially visualized dilated main pancreatic duct. Correlate with history of malignancy and prior CT abdomen/pelvis dated 07/10/2019. Electronically Signed: Aime Baires MD at 19:35 EST , Assessment & Plan Assessment/Plan (1) Pancreatitis: QUALIFIERS: Acute pancreatitis complication: no infection or necrosis Chronicity: acute Pancreatitis type: unspecified pancreatitis type Qualified Code(s): K85.90 - Acute pancreatitis without necrosis or infection, unspecified (2) Dyspnea on exertion: (3) Chest pain: QUALIFIERS: Chest pain type: unspecified Qualified Code(s): R07.9 - Chest pain, unspecified PLAN: Acute on chronic pancreatitis Review of emergency department labs showed lipase of more than 1500. Impression of chest CTA partially visualized dilated main pancreatic duct. Actual chest CTA was visualized and independently interpreted. I agree with radiologist interpretation Hematocrit: 44 BUN: 22. Sodium is mildly elevated at 133. Lactated Ringer's at 150 ml/hr. Patient has no abdominal pain. MRI pancreas from outside hospital was reviewed. MRI pancreatic showed amount of findings pancreas with dilatation of the pancreatic and common bile ducts. Per radiologist a small pancreatic head neoplasm must be considered. Chest CTA on this presentation showed partially visualized dilatated main pancreatic duct. Chest CT was independently interpreted and agree radiologist interpretation. Clear liquid diet for now. N.p.o. after midnight. GI consult. Continue Creon when patient is no longer n.p.o. Dyspnea on exertion/chest pain We will get an echocardiogram. Troponin was negative. EKG showed QTC prolongation. Avoid QTC prolongation drugs. Received full dose aspirin emergency department. Baby aspirin daily ordered. Check lipid level. Atorvastatin continued QTC prolongation. EKG tracing was reviewed. QTC of 506. Check Magnesium. Avoid QTC prolongation drugs. DVT prophylaxis: SCD ordered. Charges/Coding Visit Charges Inpatient E&M: 77518 Init Hosp L3
[2021-12-17 20:19] VITALS: BP 164/108; PULSE 72; RESP 16; TEMP 36.9; O2SAT 99
--- NOTE | 2021-12-17 20:49 | ECHOD_ITS ---
Reason For Study: SOB Procedure This was a 2D Doppler, Color Flow transthoracic echocardiogram. Exam performed portable in patient room. Left Ventricle Normal LV size. Apical false tendon noted. Left ventricular systolic function is normal. The estimated ejection fraction is 65 %. Diastolic function is indeterminate. No regional wall motion abnormalities noted. Right Ventricle Normal RV size. Normal systolic function. Atria Normal left atrium. Normal right atrium. No doppler evidence for ASD. Mitral Valve There is no mitral annular calcification. Normal mitral valve. Trivial mitral valve insufficiency. Tricuspid Valve Normal tricuspid valve. Mild tricuspid valve insufficiency. Right ventricular systolic pressure estimated to be 32 mmHg. Aortic Valve Trisinus/trileaflet aortic valve. Mild diffuse aortic valve thickening. Trivial aortic valve insufficiency. Pulmonic Valve The pulmonic valve is not well visualized. Great Vessels Normal aortic root. Pericardium/Pleural No pericardial effusion. MMode/2D Measurements & Calculations LVIDd: 4.2 cm IVSd: 1.0 cm Ao root diam: 3.8 cm LVIDs: 2.3 cm LVPWd: 0.84 cm RVDd: 3.4 cm FS: 46.3 % LAV(MOD-bp): 25.8 ml LVAd ap4: 26.7 cm2 LVAd ap2: 29.7 cm2 LAV(MOD-bp) Indexed: 13.5 ml/m2 LVLd ap4: 7.9 cm LVLd ap2: 8.4 cm LAV(MOD-sp2): 25.4 ml EDV(MOD-sp4): 76.7 ml EDV(MOD-sp2): 89.8 ml LAV(MOD-sp4): 25.6 ml EDV(sp4-el): 76.9 ml EDV(sp2-el): 89.1 ml LVAs ap4: 13.1 cm2 LVAs ap2: 13.5 cm2 LVLs ap4: 6.4 cm LVLs ap2: 6.7 cm ESV(MOD-sp4): 22.4 ml ESV(MOD-sp2): 23.4 ml ESV(sp4-el): 22.5 ml ESV(sp2-el): 22.9 ml EF(MOD-sp4): 70.8 % EF(MOD-sp2): 73.9 % EF(sp4-el): 70.7 % SV(MOD-sp4): 54.3 ml SV(MOD-sp2): 66.3 ml SV(sp4-el): 54.4 ml LA dimension(2D): 3.0 cm LA A4 area: 11.9 cm2 RA A4 area: 11.8 cm2 Doppler Measurements & Calculations MV E max jose: 96.6 cm/sec Lat Peak E' Jose: 12.3 cm/sec Med Peak E' Jose: 6.7 cm/sec MV A max jose: 95.0 cm/sec E/E' lat: 7.9 E/E' med: 14.4 MV E/A: 1.0 Ao V2 max: 153.1 cm/sec LV V1 max: 128.0 cm/sec PA V2 max: 112.8 cm/sec Ao max P.4 mmHg LV V1 max P.6 mmHg TR max jose: 260.1 cm/sec TR max P.1 mmHg ECHO/Echo Complete Interpretation Summary Left ventricular systolic function is normal. The estimated ejection fraction is 65 %. Apical false tendon noted. Trivial mitral valve insufficiency. Mild tricuspid valve insufficiency. Mild diffuse aortic valve thickening. Trivial aortic valve insufficiency. Right ventricular systolic pressure estimated to be 32 mmHg. Diastolic function is indeterminate. Ordering Physician: Patrick Alva Referring Physician: Ziggy Smith Performed By: Anette Dickson RDCS
[2021-12-17 20:53] VITALS: PULSE 68
[2021-12-17 20:58] VITALS: BMI 22.1
[2021-12-17 21:05] VITALS: BP 149/101; PULSE 64; RESP 18; TEMP 36.9; O2SAT 97
[2021-12-17] MEDS: Lactated Ringers 1,000 ML 150 ML IV (21:46)
[2021-12-17 23:23] LABS: Troponin-I HS 5 pg/mL (3.0-78.0)
[2021-12-18] VITALS (10 sets, daily range): BP systolic 115–160; BP diastolic 77–108; PULSE 56–73; RESP 14–18; TEMP 36.3–36.8; O2SAT 97–100
[2021-12-18] MEDS: Lactated Ringers 1,000 ML 150 ML IV ×3 (03:58→16:29)
[2021-12-18 06:20] LABS: Absolute Lymphocyte Count 1.88 X10^3/uL (0.83-4.51); Absolute Neutrophil Count 4.5 X10^3/uL (2.0-7.7); Basophil# 0.02 X10^3/uL; Basophil% 0.3 % (0-1); Eosinophil# 0.09 X10^3/uL; Eosinophils% 1.3 % (0-5); Hemoglobin 13.7 g/dL (13.0-16.5); Lymphocyte # 1.88 X10^3/ul (0.83-4.51); Lymphocyte % 26.1 % (19-41); Mean Corp Hgb Conc 35.1 g/dL (32-36); Mean Corpuscular Hgb 30.1 pg (27.0-32.0); Mean Corpuscular Volume 85.7 fL (80-94); Mean Platelet Vol. 10.3 fl (6.2-12.0); Monocyte% 9.7 % (0-10); NRBC Flagged by Analyzer 0 % (0-5); Neutrophil # 4.48 X10^3/uL (2.7-7.7); Neutrophil % 62.3 % (47-70); Platelet Count 201 K/mm3 (150-450); RBC Distribution Width CV 12.4 % (11.6-14.6); RBC Distribution Width SD 39.2 fl (35.1-43.9); Red Blood Count 4.55 M/mm3 (4.6-6.2); White Blood Count 7.2 K/mm3 (4.4-11.0)
[2021-12-18 06:50] LABS: BUN 15 mg/dL (7-18); Creatinine, Serum 0.89 mg/dL (0.70-1.30); EST Glomerular Filtration Rate 93 mL/min (>60); Estimated Creatinine Clearance 89.01 ml/min; Glucose 95 mg/dL (74-106)
[2021-12-18 06:51] LABS: ALB/GLOB Ratio 1.2 RATIO (0.9-2.4); AST(SGOT) 16 U/L (15-37); Alanine Aminotransfer ALT/SGPT 25 U/L (16-61); Albumin, Serum 3.4 g/dL (3.2-5.0); Alkaline Phosphatase 69 U/L (45-117); Anion Gap 5 (5-15); BUN/Creat Ratio 16.9 RATIO (10-20); Calcium,Total 8.3 mg/dL (8.5-10.1); Chloride 108 mmol/L (98-107); Est Glom Filt Rate - Afr Amer 112 mL/min (>60); Globulin 2.9 g/dL (2.2-4.2); Magnesium 2.3 mg/dL (1.6-2.6); Potassium 3.7 mmol/L (3.5-5.1); Protein, Total 6.3 g/dL (6.4-8.2); Sodium Level 140 mmol/L (136-145)
--- NOTE | 2021-12-18 08:05 | PCM.PN.HOSP ---
Subjective Subjective The patient is admitted for shortness of breath 2 to 3 hours prior to presentation to ED along with fatigue, loss of energy, lightheadedness. Patient also reported lower substernal sharp pain. Patient has history of recurrent pancreatitis. He was recently at [facility] and MRI showed possible pancreatic lesion. Patient had MRI of the pancreas with contrast at [facility] on 12/03/2021. Concern was possible area of pancreatic necrosis. Objective Data Objective Data Vital Signs: Vital Signs Temp Pulse Resp BP Pulse Ox 98.2 F 56 L 15 115/77 97 12/18/21 03:05 12/18/21 07:45 12/18/21 03:05 12/18/21 03:05 12/18/21 03:05 Oxygen Flow Rate (L/min) 2 Oxygen Delivery Method Room Air Weight: 159 lb 2.78 oz Body Mass Index (BMI) 22.1 Intake & Output: Intake and Output for Last 24 Hours 12/16/21 12/17/21 12/18/21 23:59 23:59 23:59 Intake Total 1832.5 / 1832.5 597.5 / 597.5 Output Total 225 / 225 550 / 550 Balance 1607.5 / 1607.5 47.5 / 47.5 Lab / Micro Data Result Diagrams: 12/18/21 05:50 12/18/21 05:50 Labs: Laboratory Results - last 24 hr 12/17/21 15:58: WBC 9.3, RBC 5.12, Hgb 15.6, Hct 44.0, MCV 85.9, MCH 30.5, MCHC 35.5, RDW Std Deviation 38.2, RDW Coeff of Ghanshyam 12.1, Plt Count 230, MPV 10.3, Immature Gran % (Auto) 0.100, Neut % (Auto) 76.6 H, Lymph % (Auto) 15.7 L, [place] % (Auto) 6.9, Eos % (Auto) 0.4, Baso % (Auto) 0.3, Absolute Neuts (auto) 7.1, Absolute Lymphs (auto) 1.46, Nucleated RBC % 0 Total Bilirubin 0.70, Direct Bilirubin 0.14, AST 30, ALT 31, Alkaline Phosphatase 100, Troponin I High Sens 6, Total Protein 8.5 H, Albumin 4.4, Globulin 4.1, Lipase > 1500 H 12/17/21 15:58: Sodium 133 L, Potassium 3.8, Chloride 104, Carbon Dioxide 20.0 L, Anion Gap 9, BUN 22 H, Creatinine 1.20, Estim Creat Clear Calc 68.85, Est GFR (MDRD) Af Amer 79, Est GFR (MDRD) Non-Af 65, BUN/Creatinine Ratio 18.3, Glucose 121 H, Calcium 9.4, 12/17/21 18:52: Troponin I High Sens 7 12/17/21 22:25: Troponin I High Sens 5 12/18/21 05:50: WBC 7.2, RBC 4.55 L, Hgb 13.7, Hct 39.0 L, MCV 85.7, MCH 30.1, MCHC 35.1, RDW Std Deviation 39.2, RDW Coeff of Ghanshyam 12.4, Plt Count 201, MPV 10.3, Immature Gran % (Auto) 0.300, Neut % (Auto) 62.3, Lymph % (Auto) 26.1, [place] % (Auto) 9.7, Eos % (Auto) 1.3, Baso % (Auto) 0.3, Absolute Neuts (auto) 4.5, Absolute Lymphs (auto) 1.88, Nucleated RBC % 0 12/18/21 05:50: Sodium 140, Potassium 3.7, Chloride 108 H, Carbon Dioxide 27.0, Anion Gap 5, BUN 15, Creatinine 0.89, Estim Creat Clear Calc 89.01, Est GFR (MDRD) Af Amer 112, Est GFR (MDRD) Non-Af 93, BUN/Creatinine Ratio 16.9, Glucose 95, Calcium 8.3 L, Magnesium 2.3, Total Bilirubin 0.90, AST 16, ALT 25, Alkaline Phosphatase 69, Total Protein 6.3 L, Albumin 3.4, Globulin 2.9, Albumin/Globulin Ratio 1.2 Radiography Diagnostic Testing: Radiology Impression Chest X-Ray 12/17/21 16:12 IMPRESSION: No acute radiographic abnormalities. Electronically Signed: Aime Baires MD at 16:34 EST , Chest CTA 12/17/21 16:28 IMPRESSION: No evidence of acute pulmonary emboli to the segmental level. 4.3 cm ascending thoracic aortic aneurysm. Partially visualized dilated main pancreatic duct. Correlate with history of malignancy and prior CT abdomen/pelvis dated 07/10/2019. Electronically Signed: Aime Baires MD at 19:35 EST , Physical Exam Narrative Patient had history of chronic alcohol use which he discontinued after the onset of pancreatitis, 3 years ago. History of recurrent pancreatitis. Had cholecystectomy for gallbladder sludge. No fever. General: Alert, Oriented x3, Cooperative HEENT: Atraumatic, PERRLA, EOMI, Normocephalic Oral: No Gingival or Mucosal Lesions/ Ulcerations Neck: Supple, No JVD, Negative Carotid Bruits Lungs: Air entry diminished in bilateral lung bases. No crepitation/rhonchi Cardiovascular: Regular rate, Regular Rhythm, Normal S1, Normal S2, No murmurs Abdomen: Bowel Sounds Present, Soft, Non Tender, Non-Distended. No palpable mass : No renal angle tenderness. No suprapubic tenderness. Extremities: No edema, Capillary Refill Less than 3 Seconds Skin: No rashes, No breakdown Musculoskeletal: No Tenderness to Palpation of Joints or Extremities Neurological: Cranial nerves II-XII grossly intact, DTR 2+/4 and Symmetrical, Neuro grossly intact Psych/Mental Status: Normal Affect, Appropriate. Assessment & Plan Assessment/Plan (1) Pancreatitis: QUALIFIERS: Acute pancreatitis complication: no infection or necrosis Chronicity: acute Pancreatitis type: unspecified pancreatitis type Qualified Code(s): K85.90 - Acute pancreatitis without necrosis or infection, unspecified (2) Dyspnea on exertion: (3) Chest pain: QUALIFIERS: Chest pain type: unspecified Qualified Code(s): R07.9 - Chest pain, unspecified PLAN: Acute on chronic pancreatitis, exact etiology unclear Patient had MRI pancreas with contrast on 12/03/2021 and images reviewed it reported as mild pancreatic inflammation compatible with acute interstitial pancreatitis. Focal pancreatic parenchymal volume loss at head of pancreas with dilation of pancreatic duct and CBD with fairly smooth marginated border. This could be possible due to sequela of previous pancreatitis with ductal stricture, however a small pancreatic head neoplasm must also be considered. Light page more than 1500. Patient does not have tenderness, leukocytosis or fever therefore diet advanced to soft diet. GI is consulted. BUN was elevated and repeat normal. Hematocrit 44% -39% Continue Ringer lactate Dyspnea on exertion/chest pain 12/18: Echo is done. Troponin was negative. EKG showed QTC prolongation. Avoid QTC prolongation drugs. Received full dose aspirin emergency department. Baby aspirin daily ordered. Lipid profile ordered QTC prolongation. EKG tracing was reviewed. QTC of 506. Serum magnesium normal 2.3. Avoid QTC prolongation drugs. DVT prophylaxis, moderate to high risk because of pancreatitis: SCD ordered. Started on Lovenox 40 mils subcu daily. Total time of the visit includes total time spent in counseling or coordination of care, (more than 50% of the total time, spent in obtaining medical information from nurses and other ancillary care providers,explaining to the patient about labs, imaging, diagnosis and management), discussion with GI data communications software consultant, review of labs and outside MRI report and imaging 35 minutes Charges/Coding Visit Charges Inpatient E&M: 91563 Subs Hosp L3
[2021-12-18] MEDS: Pantoprazole Sodium 40 MG Tablet PO (08:31)
[2021-12-18] MEDS: Sertraline 50 MG Tablet PO (08:31)
--- NOTE | 2021-12-18 11:00 | CASEMGMT ---
RN CM Face to Face with patient for initial transition planning/care coordination assessment. RN CM introduced self and role at [facility]. Patient lying in bed, alert and oriented. Patient willing to participate in assessment and is able to answer all questions appropriately. Care providers, pharmacy, and demographics verified. Patient wishes to discharge home, denies need for home health at this time. Patient states he has no further needs or concerns at this time. CM to follow for discharge planning needs that may arise. PCP: Luis Specialists: RAMYA Zarate Preferred Pharmacy: [facility] Insurance: [employer] [place] [employer] Prescription Benefit: yes Living Will/HPOA: none LNOK: daughter, sister Living Arrangements: Patient lives alone in [place] with single flight of stairs to enter the home. Patient is independent and able to ambulate the stairs. Transportation: self, sister, daughter DME/HHC: Patient denies DME in the home. Patient has had HHC previously but cannot recall company. Disposition Plan: Patient to discharge home with family support and follow-up plans in place. Christine JIMÉNEZ, RN, CM
[2021-12-18] MEDS: LORazepam 0.5 MG Tablet PO ×2 (11:47→21:56)
[2021-12-18] MEDS: Acetaminophen 325 MG Tablet 650 MG PO ×2 (15:31→21:44)
--- NOTE | 2021-12-18 18:30 | EX.PCM.CON.G ---
HPI Consult Data Date of Consult: 12/18/21 HPI Narrative HPI Narrative: CHLOE TRIPATHI, is a 61 M who presents with worsening abdominal pain. He has a history of recurrent acute pancreatitis. He does not know if he has a history of chronic pancreatitis. 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 He takes 9 pills of Creon with each meal and it was recently decreased down to 6 pills a day. He follows up with Dr. Harris as an outpatient who ordered an MRCP of his abdomen pelvis to evaluate recurrent pancreatitis. He thought he had a history of chronic pancreatitis. He had sought hepatobiliary surgery regarding drainage of a pseudocyst, but surgery was not pursued. He has never had a complication of thrombosis of the splenic vein. He is status post cholecystectomy. He says that he does not drink any alcohol. The MRI that was done at [facility] had showed a possible pancreatic lesion in the head of the pancreas. He said that his GI doctor Dr. Harris was considering an upper scope. He does not know if that was not ERCP that was going to get done. [facility] Medical History Anxiety Hx of pancreatitis Home Medications atorvastatin 10 mg PO DAILY 12/17/21 [History Last Taken 12/17/21] hydrocodone-acetaminophen 1 tab PO Q6H PRN 12/17/21 [History Last Taken 12/16/21 23:30] [id number] [Creon] 3 cap PO TIDCM 12/17/21 [History Last Taken 12/17/21] omeprazole 40 mg PO DAILY 12/17/21 [History Last Taken 12/17/21] sertraline 50 mg PO DAILY 12/17/21 [History Last Taken 12/17/21] lorazepam 0.5 mg PO BID PRN 12/18/21 [History Last Taken Unknown] Allergy/AdvReac Type Severity Reaction Status Date / Time amoxicillin [From Augmentin] Allergy Swelling Verified 12/17/21 15:50 clavulanic acid Allergy Swelling Verified 12/17/21 15:50 [From Augmentin] Penicillins Allergy PT UNSURE Verified 12/17/21 15:51 OF REACTION hydromorphone [From Dilaudid] AdvReac Other Verified 12/17/21 15:50 Family History Father Myocardial infarction Surgical History Hx of cholecystectomy S/P appendectomy Social History Smoking Status: Former smoker ROS Review of Systems ROS Unobtainable: other Constitutional Constitutional: Denies fatigue, fever(s), poor appetite, weight gain or weight loss ENT HEENT: Denies mouth lesions Cardiovascular Cardiovascular: Denies abdominal bloating, abdominal edema or abdominal pain Respiratory/Chest Respiratory/Chest: Denies change in mental status, change in phlegm color, chest congestion or chest tightness Gastrointestinal Gastrointestinal: Denies belching, bloating, change in bowel habits, change in stool character, chewing difficulty, coffee ground emesis, constipation, cramping, diarrhea, dyspepsia, dysphagia, early satiety, excessive flatus, fecal incontinence, heartburn, hematemesis, hematochezia, hemorrhoids, loose stools, melena, nausea, odynophagia, rectal bleeding, tenesmus, vomiting or weight changes Genitourinary Genitourinary: Denies abdominal discomfort, burning urination or itching Musculoskeletal Musculoskeletal: Reports as per HPI; Denies muscle weakness or myalgias Integumentary Integumentary: Denies jaundice Neurologic Neurologic: Denies lack of coordination or weakness Psychiatric Psychiatric: Denies confusion, depression, memory loss, mood swings, paranoia or suicidal ideation Endocrine Endocrinology: Denies systems reviewed and no addt'l complaints, except as documented Hematologic/Lymphatic Hematologic/Lymphatic: Denies anemia, easy bleeding, easy bruising or lymphadenopathy Allergic/Immunologic Allergic/Immunologic: Denies systems reviewed and no addt'l complaints, except as documented Physical Exam Const alert General Appearance: cooperative Orientation / Consciousness: oriented to person HEENT hearing grossly normal bilaterally Head and Scalp: normal to inspection Face and Sinus: face symmetric Nose: external nose normal Mouth: oral and palatal mucosa normal Eyes conjunctivae normal General Eye: normal appearance of both eyes Neck full ROM General: normal visual inspection Lymph Lymphatic: no lymphadenopathy noted Chest inspection of chest normal and palpation of chest normal Chest: symmetrical chest wall rise Resp normal respiratory effort Effort and Inspection: able to speak in complete sentences Cardio regular rate GI non-distended Percussion: normal to percussion Rectal Exam: deferred Neuro Speech: speech normal Gait (Neuro): normal gait Lab / Micro Data Result Diagrams: 12/18/21 05:50 12/18/21 05:50 Labs: Laboratory Results - last 24 hr 12/17/21 15:58: Sodium Cancelled, Potassium Cancelled, Chloride Cancelled, Carbon Dioxide Cancelled, Anion Gap Cancelled, BUN Cancelled, Creatinine Cancelled, Est GFR (MDRD) Af Amer Cancelled, Est GFR (MDRD) Non-Af Cancelled, BUN/Creatinine Ratio Cancelled, Glucose Cancelled, Calcium Cancelled 12/17/21 15:58: Sodium 133 L, Potassium 3.8, Chloride 104, Carbon Dioxide 20.0 L, Anion Gap 9, BUN 22 H, Creatinine 1.20, Estim Creat Clear Calc 68.85, Est GFR (MDRD) Af Amer 79, Est GFR (MDRD) Non-Af 65, BUN/Creatinine Ratio 18.3, Glucose 121 H, Calcium 9.4, Total Bilirubin Cancelled, AST Cancelled, ALT Cancelled, Alkaline Phosphatase Cancelled, Troponin I High Sens Cancelled, Total Protein Cancelled, Albumin Cancelled, Globulin Cancelled, Albumin/Globulin Ratio Cancelled 12/17/21 18:52: Troponin I High Sens 7 12/17/21 22:25: Troponin I High Sens 5 12/18/21 05:50: WBC 7.2, RBC 4.55 L, Hgb 13.7, Hct 39.0 L, MCV 85.7, MCH 30.1, MCHC 35.1, RDW Std Deviation 39.2, RDW Coeff of Ghanshyam 12.4, Plt Count 201, MPV 10.3, Immature Gran % (Auto) 0.300, Neut % (Auto) 62.3, Lymph % (Auto) 26.1, [place] % (Auto) 9.7, Eos % (Auto) 1.3, Baso % (Auto) 0.3, Absolute Neuts (auto) 4.5, Absolute Lymphs (auto) 1.88, Nucleated RBC % 0 12/18/21 05:50: Sodium 140, Potassium 3.7, Chloride 108 H, Carbon Dioxide 27.0, Anion Gap 5, BUN 15, Creatinine 0.89, Estim Creat Clear Calc 89.01, Est GFR (MDRD) Af Amer 112, Est GFR (MDRD) Non-Af 93, BUN/Creatinine Ratio 16.9, Glucose 95, Calcium 8.3 L, Magnesium 2.3, Total Bilirubin 0.90, AST 16, ALT 25, Alkaline Phosphatase 69, Total Protein 6.3 L, Albumin 3.4, Globulin 2.9, Albumin/Globulin Ratio 1.2 Radiology Impression Chest CTA 12/17/21 16:28 IMPRESSION: No evidence of acute pulmonary emboli to the segmental level. 4.3 cm ascending thoracic aortic aneurysm. Partially visualized dilated main pancreatic duct. Correlate with history of malignancy and prior CT abdomen/pelvis dated 07/10/2019. Electronically Signed: Aime Baires MD at 19:35 EST , Echocardiogram 12/17/21 20:49 Interpretation Summary Left ventricular systolic function is normal. The estimated ejection fraction is 65 %. Apical false tendon noted. Trivial mitral valve insufficiency. Mild tricuspid valve insufficiency. Mild diffuse aortic valve thickening. Trivial aortic valve insufficiency. Right ventricular systolic pressure estimated to be 32 mmHg. Diastolic function is indeterminate. Ordering Physician: Patrick Alva Referring Physician: Ziggy Smith Performed By: Anette Dickson RDCS Assessment & Plan Assessment/Plan (1) Pancreatitis: QUALIFIERS: Chronicity: acute Pancreatitis type: unspecified pancreatitis type Acute pancreatitis complication: no infection or necrosis Qualified Code(s): K85.90 - Acute pancreatitis without necrosis or infection, unspecified PLAN: The patient does not want to have another MRCP although will be very valuable to look at his anatomy in more detail myself. I will try to get the MRCP from [facility] so I can evaluate the strictures that are noted in the pancreatic head and the pancreatic tail to see if it is amenable to biopsy and stenting. Would recommend to check in CA 19-9, alpha-fetoprotein. Would also recommend to check a stool for fecal fat to see if he does have chronic pancreatitis. This should be done off of Creon. Charges/Coding Visit Charges Inpatient E&M: 60366 Init Hosp L3
[2021-12-18] MEDS: Atorvastatin Calcium 10 MG Tablet PO (21:56)
[2021-12-19] VITALS (12 sets, daily range): BP systolic 131–145; BP diastolic 85–95; PULSE 49–71; RESP 16–18; TEMP 36.7–37.1; O2SAT 96–99
[2021-12-19] MEDS: Lactated Ringers 1,000 ML 100 ML IV ×2 (02:18→12:46)
[2021-12-19 06:09] LABS: Absolute Lymphocyte Count 1.77 X10^3/uL (0.83-4.51); Absolute Neutrophil Count 3.7 X10^3/uL (2.0-7.7); Basophil# 0.03 X10^3/uL; Basophil% 0.5 % (0-1); Eosinophil# 0.09 X10^3/uL; Eosinophils% 1.4 % (0-5); Hematocrit 39.9 % (40-54); Hemoglobin 14.1 g/dL (13.0-16.5); Lymphocyte # 1.77 X10^3/ul (0.83-4.51); Lymphocyte % 28.2 % (19-41); Mean Corp Hgb Conc 35.3 g/dL (32-36); Mean Corpuscular Hgb 30.5 pg (27.0-32.0); Mean Corpuscular Volume 86.2 fL (80-94); Mean Platelet Vol. 10.6 fl (6.2-12.0); Monocyte# 0.67 X10^3/uL; Monocyte% 10.7 % (0-10); NRBC Flagged by Analyzer 0 % (0-5); Neutrophil # 3.72 X10^3/uL (2.7-7.7); Neutrophil % 59.2 % (47-70); Platelet Count 191 K/mm3 (150-450); RBC Distribution Width CV 12.2 % (11.6-14.6); RBC Distribution Width SD 38.6 fl (35.1-43.9); Red Blood Count 4.63 M/mm3 (4.6-6.2); White Blood Count 6.3 K/mm3 (4.4-11.0)
[2021-12-19 06:40] LABS: ALB/GLOB Ratio 1.2 RATIO (0.9-2.4); AST(SGOT) 15 U/L (15-37); Alanine Aminotransfer ALT/SGPT 26 U/L (16-61); Albumin, Serum 3.5 g/dL (3.2-5.0); Alkaline Phosphatase 66 U/L (45-117); Anion Gap 4 (5-15); BUN 10 mg/dL (7-18); BUN/Creat Ratio 12.8 RATIO (10-20); Calcium,Total 8.6 mg/dL (8.5-10.1); Chloride 108 mmol/L (98-107); Cholesterol 107 mg/dL (200); Creatinine, Serum 0.78 mg/dL (0.70-1.30); EST Glomerular Filtration Rate 108 mL/min (>60); Est Glom Filt Rate - Afr Amer 130 mL/min (>60); Estimated Creatinine Clearance 101.56 ml/min; Globulin 2.8 g/dL (2.2-4.2); Glucose 94 mg/dL (74-106); High Density Lipoprotein 41 mg/dL; Potassium 3.6 mmol/L (3.5-5.1); Protein, Total 6.3 g/dL (6.4-8.2); Sodium Level 140 mmol/L (136-145); Triglycerides 62 mg/dL; Very Low Density Lipoprotein 12 mg/dL (5-40)
[2021-12-19] MEDS: Pantoprazole Sodium 40 MG Tablet PO (09:43)
[2021-12-19] MEDS: Sertraline 50 MG Tablet PO (09:44)
[2021-12-19] MEDS: LORazepam 0.5 MG Tablet PO ×2 (11:47→18:17)
--- NOTE | 2021-12-19 12:00 | MRI_ITS ---
STUDY: MR MRCP WITHOUT CONTRAST REASON FOR EXAM: Male, 61 years old. pancreatic head mass/pancreatitis TECHNIQUE: Standard MRCP technique was utilized. 3-D postprocessing images were reviewed. COMPARISON: None. FINDINGS: Gall Bladder: Gall bladder is surgically absent. Cystic duct: Normal with no demonstrated fixed filling defect. Intrahepatic ducts: Normal visualized intrahepatic ducts with no demonstrated fixed filling defect, dilation or stricture. Common hepatic duct: Mildly dilated with no evidence of filling defect or stricture. Common bile duct: Mildly dilated with no evidence of stone defect or stricture. Pancreatic duct: Dilated in the body and tail measuring up to 6 mm in diameter. Other: Ill-defined 4.7 x 2.4 x 4 cm T1 hypointense/T2 hypointense mass in the head of the pancreas. There is associated dilatation of the main pancreatic duct. MRI/MRCP Abdomen without Contrast IMPRESSION: Ill-defined 5 cm mass in the head of the pancreas with associated main pancreatic duct dilatation. Recommend CT abdomen pancreatic mass protocol for staging. Electronically Signed: Aime Baires MD at 18:09 EST ,
[2021-12-19] MEDS: 0.9% Saline Lock 10 ML Syringe IV (14:54)
--- NOTE | 2021-12-19 15:42 | PCM.PN.HOSP ---
Subjective Subjective Patient abdominal pain has resolved. N.p.o. for ERCP in afternoon today. Patient did not want repeat MRCP. Objective Data Objective Data Vital Signs: Vital Signs Temp Pulse Resp BP Pulse Ox 98.7 F 69 16 136/89 H 96 12/19/21 14:55 12/19/21 15:10 12/19/21 14:55 12/19/21 14:55 12/19/21 14:55 Oxygen Flow Rate (L/min) 2 Oxygen Delivery Method Room Air Weight: 159 lb 2.78 oz Body Mass Index (BMI) 22.1 Intake & Output: Intake and Output for Last 24 Hours 12/17/21 12/18/21 12/19/21 23:59 23:59 23:59 Intake Total 1832.5 / 1832.5 2877.5 / 2877.5 33 / Output Total 225 / 225 2050 / 3030 2210 / 2210 Balance 1607.5 / 1607.5 827.5 / -152.5 -206.67 / -206.67 Lab / Micro Data Result Diagrams: 12/19/21 05:16 12/19/21 05:16 Labs: Laboratory Results - last 24 hr 12/19/21 05:16: WBC 6.3, RBC 4.63, Hgb 14.1, Hct 39.9 L, MCV 86.2, MCH 30.5, MCHC 35.3, RDW Std Deviation 38.6, RDW Coeff of Ghanshyam 12.2, Plt Count 191, MPV 10.6, Immature Gran % (Auto) 0.000, Neut % (Auto) 59.2, Lymph % (Auto) 28.2, [place] % (Auto) 10.7 H, Eos % (Auto) 1.4, Baso % (Auto) 0.5, Absolute Neuts (auto) 3.7, Absolute Lymphs (auto) 1.77, Nucleated RBC % 0 12/19/21 05:16: Sodium 140, Potassium 3.6, Chloride 108 H, Carbon Dioxide 28.0, Anion Gap 4 L, BUN 10, Creatinine 0.78, Estim Creat Clear Calc 101.56, Est GFR (MDRD) Af Amer 130, Est GFR (MDRD) Non-Af 108, BUN/Creatinine Ratio 12.8, Glucose 94, Calcium 8.6, Total Bilirubin 0.90, AST 15, ALT 26, Alkaline Phosphatase 66, Total Protein 6.3 L, Albumin 3.5, Globulin 2.8, Albumin/Globulin Ratio 1.2, Triglycerides 62, Cholesterol 107, LDL Cholesterol 54, VLDL Cholesterol 12, HDL Cholesterol 41 Micro: Microbiology 12/19/21 09:45 Nasal Secretion SARS-CoV-2 Antigen (Rapid) - Final Radiography Diagnostic Testing: Radiology Impression Echocardiogram 12/17/21 20:49 Interpretation Summary Left ventricular systolic function is normal. The estimated ejection fraction is 65 %. Apical false tendon noted. Trivial mitral valve insufficiency. Mild tricuspid valve insufficiency. Mild diffuse aortic valve thickening. Trivial aortic valve insufficiency. Right ventricular systolic pressure estimated to be 32 mmHg. Diastolic function is indeterminate. Ordering Physician: Patrick Alva Referring Physician: Ziggy Smith Performed By: Anette Dickson RDCS Physical Exam Narrative Physical exam General: Alert, Oriented x3, Cooperative HEENT: Atraumatic, PERRLA, EOMI, Normocephalic Oral: No Gingival or Mucosal Lesions/ Ulcerations Neck: Supple, No JVD, Negative Carotid Bruits Lungs: Air entry diminished in bilateral lung bases. No crepitation/rhonchi Cardiovascular: Regular rate, Regular Rhythm, Normal S1, Normal S2, No murmurs Abdomen: Bowel Sounds Present, Soft, Non Tender, Non-Distended. No palpable mass : No renal angle tenderness. No suprapubic tenderness. Extremities: No edema, Capillary Refill Less than 3 Seconds Skin: No rashes, No breakdown Musculoskeletal: No Tenderness to Palpation of Joints or Extremities Neurological: Cranial nerves II-XII grossly intact, DTR 2+/4 and Symmetrical, Neuro grossly intact Psych/Mental Status: Normal Affect, Appropriate. Assessment & Plan Assessment/Plan (1) Pancreatitis: QUALIFIERS: Chronicity: acute Pancreatitis type: unspecified pancreatitis type Acute pancreatitis complication: no infection or necrosis Qualified Code(s): K85.90 - Acute pancreatitis without necrosis or infection, unspecified (2) Dyspnea on exertion: (3) Chest pain: QUALIFIERS: Chest pain type: unspecified Qualified Code(s): R07.9 - Chest pain, unspecified PLAN: Acute on chronic pancreatitis, exact etiology unclear. Patient had history of chronic alcohol use which he discontinued after the onset of pancreatitis, 3 years ago. History of recurrent pancreatitis. Had cholecystectomy for gallbladder sludge. No fever. Patient had MRI pancreas with contrast on 12/03/2021 and images reviewed it reported as mild pancreatic inflammation compatible with acute interstitial pancreatitis. Focal pancreatic parenchymal volume loss at head of pancreas with dilation of pancreatic duct and CBD with fairly smooth marginated border. This could be possible due to sequela of previous pancreatitis with ductal stricture, however a small pancreatic head neoplasm must also be considered. Lipase more than 1500. Patient does not have tenderness, leukocytosis or fever therefore diet advanced to soft diet. GI is consulted. BUN was elevated and repeat normal. Hematocrit 44% -39% Continue Ringer lactate 12/19: Plan for ERCP today. Dyspnea on exertion/chest pain 12/18: Echo is done. Troponin was negative. EKG showed QTC prolongation. Avoid QTC prolongation drugs. Received full dose aspirin emergency department. Baby aspirin daily ordered. Lipid profile ordered 12/19: Echo reviewed. EF 65%. Mild TR. RVSP 30 mmHg. QTC prolongation. EKG tracing was reviewed. QTC of 506. Serum magnesium normal 2.3. Avoid QTC prolongation drugs. DVT prophylaxis, moderate to high risk because of pancreatitis: SCD ordered. Started on Lovenox 40 mils subcu daily. Total time of the visit includes total time spent in counseling or coordination of care, (more than 50% of the total time, spent in obtaining medical information from nurses and other ancillary care providers,explaining to the patient about labs, imaging, diagnosis and management), discussion with GI technology methodology consultant, review of labs and outside MRI report and imaging 25 minutes Charges/Coding Visit Charges Inpatient E&M: 81316 Subs Hosp L2
--- NOTE | 2021-12-19 15:59 | CASEMGMT ---
Patient was referred to [facility] for depression. SW met with patient, introduced self and role at [facility]. Patient was very open with patient and shared his story. His father in 2019 and then a little while later his brother killed himself. He has a sister that has been a great support. SW listened and provided emotional support. Patient is worried about what will happen this hospital visit. He told SW about the first time he had Pancreatitis and ended up in an [facility] in the ICU. He then went septic. Patient is on Cobra and it runs out in March. He has high deductibles so that is stressing him out. SW was going to give patient counseling resources, but that would cost him more money. SW told patient that SW will check back in with him tomorrow. He agreed with this plan. Patient was appreciative of SW listening. Gerri DENNY
--- NOTE | 2021-12-19 17:56 | PCM.PROGNOTE ---
Subjective Subjective Patient is still having abdominal pain. He does not have any nausea. He is not having any chest pain or shortness of breath. He is only able to tolerate mild liquids. Objective Data Objective Data Vital Signs: Vital Signs Temp Pulse Resp BP Pulse Ox 98.7 F 69 16 136/89 H 96 12/19/21 14:55 12/19/21 15:10 12/19/21 14:55 12/19/21 14:55 12/19/21 14:55 Oxygen Flow Rate (L/min) 2 Oxygen Delivery Method Room Air Weight: 159 lb 2.78 oz Body Mass Index (BMI) 22.1 Intake & Output: Intake and Output for Last 24 Hours 12/17/21 12/18/21 12/19/21 23:59 23:59 23:59 Intake Total 1832.5 / 1832.5 2877.5 / 2877.5 33 / 33 Output Total 225 / 225 2050 / 3030 2210 / 2210 Balance 1607.5 / 1607.5 827.5 / -152.5 -206.67 / -206.67 Lab / Micro Data Result Diagrams: 12/19/21 05:16 12/19/21 05:16 Labs: Laboratory Results - last 24 hr 12/19/21 05:16: WBC 6.3, RBC 4.63, Hgb 14.1, Hct 39.9 L, MCV 86.2, MCH 30.5, MCHC 35.3, RDW Std Deviation 38.6, RDW Coeff of Ghanshyam 12.2, Plt Count 191, MPV 10.6, Immature Gran % (Auto) 0.000, Neut % (Auto) 59.2, Lymph % (Auto) 28.2, [place] % (Auto) 10.7 H, Eos % (Auto) 1.4, Baso % (Auto) 0.5, Absolute Neuts (auto) 3.7, Absolute Lymphs (auto) 1.77, Nucleated RBC % 0 12/19/21 05:16: Sodium 140, Potassium 3.6, Chloride 108 H, Carbon Dioxide 28.0, Anion Gap 4 L, BUN 10, Creatinine 0.78, Estim Creat Clear Calc 101.56, Est GFR (MDRD) Af Amer 130, Est GFR (MDRD) Non-Af 108, BUN/Creatinine Ratio 12.8, Glucose 94, Calcium 8.6, Total Bilirubin 0.90, AST 15, ALT 26, Alkaline Phosphatase 66, Total Protein 6.3 L, Albumin 3.5, Globulin 2.8, Albumin/Globulin Ratio 1.2, Triglycerides 62, Cholesterol 107, LDL Cholesterol 54, VLDL Cholesterol 12, HDL Cholesterol 41 Micro: Microbiology 12/19/21 09:45 Nasal Secretion SARS-CoV-2 Antigen (Rapid) - Final Physical Exam Const alert General Appearance: cooperative Orientation / Consciousness: oriented to person HEENT hearing grossly normal bilaterally Head and Scalp: normal to inspection Face and Sinus: face symmetric Nose: external nose normal Mouth: oral and palatal mucosa normal Eyes conjunctivae normal General Eye: normal appearance of both eyes Neck full ROM General: normal visual inspection Lymph Lymphatic: no lymphadenopathy noted Chest inspection of chest normal and palpation of chest normal Chest: symmetrical chest wall rise Resp normal respiratory effort Effort and Inspection: able to speak in complete sentences Cardio regular rate GI non-distended Percussion: normal to percussion Rectal Exam: deferred Neuro Speech: speech normal Gait (Neuro): normal gait Assessment & Plan Assessment/Plan (1) Pancreatitis: QUALIFIERS: Chronicity: acute Pancreatitis type: unspecified pancreatitis type Acute pancreatitis complication: no infection or necrosis Qualified Code(s): K85.90 - Acute pancreatitis without necrosis or infection, unspecified PLAN: I ordered a repeat MRI MRCP and it shows a stricture in the pancreatic duct and a stricture along the pancreatic head. I ordered a CA 19-9 and we will schedule him for an ERCP tomorrow with brushings or biopsies and stents in the common bile duct and pancreatic duct. Charges/Coding Visit Charges Inpatient E&M: 06370 Subs Hosp L2
[2021-12-19] MEDS: Atorvastatin Calcium 10 MG Tablet PO (20:29)
[2021-12-19] MEDS: proCHLORPERazine 10 MG/2 ML Vial 5 MG IV (22:20)
[2021-12-20] VITALS (16 sets, daily range): BP systolic 118–148; BP diastolic 77–93; PULSE 58–89; RESP 16–18; TEMP 36.1–37.3; O2SAT 78–100; BMI 22.1
--- NOTE | 2021-12-20 | FLU_PTH ---
PATIENT: CHLOE TRIPATHI LOC: [facility] U#:[id number] AGE/SX: 61/M ROOM: [facility] RE12/17/[address]: Dr. Matteo Mcdaniel MD : 1960 BED: 1 DIS: 12/21/2021 SPEC #: [id number] RECD: 12/20/21 14:03 STATUS: NATHAN REQ #: [id number] PATY: 12/20/21 00:[address]: Lorne Alberts DEPT: CYTOLOGY RECD BY: Mason Hunter ENTERED: 12/21/21 08:28 SP TYPE: Fluid OTHR DR: MD Dr. Patrick Damico MD Dr. Prakash Chand, MD Dr. Rahsaan Friend, Tissues: A - Bile duct, NOS B - Bile duct, NOS Procedures: Special Stain Group II Surgery Specimen Level IV Cytospin Fluid Comments: @ Ordering doctor for SSII edited from to @ by NELL at 12/21/21 0935 @ Ordering doctor for SUIII edited from to @ by NELL at 12/21/21 0935 @ Ordering doctor for SUIV edited from to @ by NELL at 12/21/21 0935 @ Ordering doctor for CYSPIN edited from to @ by NELL at 12/21/21 0935 @ Submitting doctor edited from to DR.RFRIEN De Anda by NELL at 12/21/21 0935 HEADER OPERATION: ERCP PRE-OP DIAGNOSIS: Pancreatic stricture TISSUE SUBMITTED: A ? Luning tip distal bile duct, B ? Distal bile duct brushings x3 slides DIAGNOSIS CYTOLOGY A. Luning tip, distal bile duct (cell block): Acellular specimen. B. Distal bile duct brushings (smears): Negative for malignant cells. See comment. SJ:gabe 12/24/2021 COMMENT Correlation with clinical, radiologic findings and appropriate follow up are necessary. CYTOLOGY STUDY Slides are reviewed. CYTOLOGY GROSS A - Received is a metallic endoscopic cytobrush with adherent minute fragments of la-red tissue brush in 2 ml of clear red fluid and labeled with the patient's name and and designated per the requisition as brush tip. The material is dislodged from the brush and submitted for cytology preparation including cell block. B - Received are three smears labeled with the patient's name and designated per the requisition as distal bile duct brushings. Submitted for staining. / gabe 12/21/2021 TC:5 CPT: 46326, 30807
[2021-12-20] MEDS: Lactated Ringers 1,000 ML 100 ML IV ×3 (01:15→23:26)
[2021-12-20 05:22] LABS: Absolute Lymphocyte Count 0.69 X10^3/uL (0.83-4.51); Absolute Neutrophil Count 6.7 X10^3/uL (2.0-7.7); Basophil# 0.03 X10^3/uL; Basophil% 0.4 % (0-1); Eosinophil# 0.05 X10^3/uL; Eosinophils% 0.6 % (0-5); Hematocrit 42.9 % (40-54); Hemoglobin 14.9 g/dL (13.0-16.5); Lymphocyte # 0.69 X10^3/ul (0.83-4.51); Lymphocyte % 8.5 % (19-41); Mean Corp Hgb Conc 34.7 g/dL (32-36); Mean Corpuscular Hgb 30.2 pg (27.0-32.0); Mean Platelet Vol. 10.2 fl (6.2-12.0); Monocyte# 0.63 X10^3/uL; Monocyte% 7.7 % (0-10); NRBC Flagged by Analyzer 0 % (0-5); Neutrophil # 6.72 X10^3/uL (2.7-7.7); Neutrophil % 82.6 % (47-70); Platelet Count 171 K/mm3 (150-450); RBC Distribution Width CV 12.3 % (11.6-14.6); RBC Distribution Width SD 39.2 fl (35.1-43.9); Red Blood Count 4.93 M/mm3 (4.6-6.2); White Blood Count 8.1 K/mm3 (4.4-11.0)
[2021-12-20 05:46] LABS: ALB/GLOB Ratio 1.1 RATIO (0.9-2.4); AST(SGOT) 16 U/L (15-37); Alanine Aminotransfer ALT/SGPT 29 U/L (16-61); Albumin, Serum 3.6 g/dL (3.2-5.0); Alkaline Phosphatase 74 U/L (45-117); Anion Gap 9 (5-15); BUN 15 mg/dL (7-18); Calcium,Total 8.6 mg/dL (8.5-10.1); Chloride 110 mmol/L (98-107); Creatinine, Serum 0.88 mg/dL (0.70-1.30); EST Glomerular Filtration Rate 94 mL/min (>60); Est Glom Filt Rate - Afr Amer 113 mL/min (>60); Estimated Creatinine Clearance 90.02 ml/min; Globulin 3.2 g/dL (2.2-4.2); Glucose 78 mg/dL (74-106); Potassium 3.9 mmol/L (3.5-5.1); Protein, Total 6.8 g/dL (6.4-8.2); Sodium Level 139 mmol/L (136-145)
--- NOTE | 2021-12-20 07:06 | RAD_ITS ---
STUDY: ERCP. REASON FOR EXAM: Male, 61 years old. ABD PAIN FLUOROSCOPY TIME (if supplied): ( 6 minutes and 8 seconds ) minutes/seconds. 12 images were obtained. TECHNIQUE: An ERCP was performed by the precision lens polisher. Imaging was provided. COMPARISON: None. FINDINGS: Filling defect is seen in the distal portion of the common bile duct. Successful removal. RAD/ERCP Biliary/Pancreas IMPRESSION: Fluoroscopic services provided for ERCP. Electronically Signed: Tyrone Melvin MD at 15:09 EST ,
[2021-12-20] MEDS: Pantoprazole Sodium 40 MG Tablet PO (08:43)
--- NOTE | 2021-12-20 13:20 | OP.ERCP_ITS ---
Patient Name: Vasiliy Cheney Procedure Date: 12/20/2021 10:34 AM Date of : 1960 Age: 61 Procedure: ERCP Indications: Pancreatic duct stricture Providers: Lorne Alberts DO Medicines: General Anesthesia Patient Profile: This is a 61 year old male. Refer to note in patient chart for documentation of history and physical. Patient has symptoms of acute epigastric abdominal pain. Previously obtained MRI showed a stricture in the pancreas. He is status post laparoscopic cholecystectomy. Complications: No immediate complications. Procedure: Pre-Anesthesia Assessment: - Prior to the procedure, a History and Physical was performed, and patient medications and allergies were reviewed. The patient is competent. The risks and benefits of the procedure and the sedation options and risks were discussed with the patient. All questions were answered and informed consent was obtained. Patient identification and proposed procedure were verified by the physician in the pre-procedure area. Mental Status Examination: alert and oriented. Airway Examination: normal oropharyngeal airway and neck mobility. Respiratory Examination: clear to auscultation. CV Examination: normal. Prophylactic Antibiotics: The patient does not require prophylactic antibiotics. Prior Anticoagulants: The patient has taken no previous anticoagulant or antiplatelet agents. ASA Grade Assessment: II - A patient with mild systemic disease. After reviewing the risks and benefits, the patient was deemed in satisfactory condition to undergo the procedure. The anesthesia plan was to use moderate sedation / analgesia (conscious sedation). Immediately prior to administration of medications, the patient was re-assessed for adequacy to receive sedatives. The heart rate, respiratory rate, oxygen saturations, blood pressure, adequacy of pulmonary ventilation, and response to care were monitored throughout the procedure. The physical status of the patient was re-assessed after the procedure. After obtaining informed consent, the scope was passed under direct vision. Throughout the procedure, the patient's blood pressure, pulse, and oxygen saturations were monitored continuously. The [id number] endoscope was introduced through the mouth, and advanced to the duodenum and used to inject contrast into the bile duct and ventral pancreatic duct. The ERCP was accomplished without difficulty. The patient tolerated the procedure well. Moderate Sedation: Moderate (conscious) sedation was personally administered by an anesthesia professional. The following parameters were monitored: oxygen saturation, heart rate, blood pressure, respiratory rate, EKG, adequacy of pulmonary ventilation, and response to care. Total physician intraservice time was 15 minutes. Scope In: Scope Out: 12:54:31 PM Findings: The director of field service film was normal. The esophagus was successfully intubated under direct vision. The scope was advanced to a normal major papilla in the descending duodenum without detailed examination of the pharynx, larynx and associated structures, and upper GI tract. The upper GI tract was grossly normal. The bile duct was deeply cannulated with the short-nosed traction sphincterotome. Contrast was injected. I personally interpreted the bile duct and pancreatic duct images. There was brisk flow of contrast through the ducts. Opacification of the main bile duct was successful. The maximum diameter of the ducts was 10 mm. The lower third of the main bile duct contained a single mild stenosis 6 mm in length. The main bile duct was diffusely dilated, uncertain significance. The largest diameter was 5 mm. A straight Roadrunner wire was passed into the biliary tree. A 5 mm biliary sphincterotomy was made with a traction (standard) sphincterotome using ERBE electrocautery. There was no post-sphincterotomy bleeding. The biliary tree was swept with a 12 mm balloon starting at the upper third of the main bile duct. Sludge was swept from the duct. Dilation of the common bile duct with an 8-9-10 mm balloon dilator was successful. Cells for cytology were obtained by brushing in the lower third of the main bile duct. The ventral pancreatic duct was cannulated and opacified with the short-nosed traction sphincterotome. The following techniques were unsuccessful: tapered-tip cannula. Opacification of the pancreatic duct at the head - body junction of the pancreas was incomplete. The maximum diameter of the ducts was 3 mm. The ventral pancreatic duct in the head of the pancreas was completely obstructed by a narrowing that did not appear to be a stone or a mass. Impression: - A single mild biliary stricture was found in the lower third of the main bile duct. The stricture was indeterminate. - The entire main bile duct was dilated, uncertain significance. - A biliary sphincterotomy was performed. - The biliary tree was swept and sludge was found. - Common bile duct was successfully dilated. - Cells for cytology obtained in the lower third of the main duct. Procedure Code(s): --- Professional --- 90367, 59, Endoscopic retrograde cholangiopancreatography (ERCP); with trans-endoscopic balloon dilation of biliary/pancreatic duct(s) or of ampulla (sphincteroplasty), including sphincterotomy, when performed, each duct 86271, Endoscopic retrograde cholangiopancreatography (ERCP); with removal of calculi/debris from biliary/pancreatic duct(s) 15845, Combined endoscopic catheterization of the biliary and pancreatic ductal systems, radiological supervision and interpretation CPT copyright 2017 [employer]. All rights reserved. The codes documented in this report are preliminary and upon truck dispatcher review may be revised to meet current compliance requirements. Lorne Alberts DO 12/20/2021 1:20:08 PM This report has been signed electronically. Number of Addenda: 0 Note Initiated On: 12/20/2021 10:34 AM
--- NOTE | 2021-12-20 13:20 | OP.CCLET_ITS ---
12/20/2021 Ziggy Smith Re : ERCP procedure for Vasiliy Sotelor Luis This procedure was performed on November. My impressions and recommendations are as follows: Impressions : - A single mild biliary stricture was found in the lower third of the main bile duct. The stricture was indeterminate. - The entire main bile duct was dilated, uncertain significance. - A biliary sphincterotomy was performed. - The biliary tree was swept and sludge was found. - Common bile duct was successfully dilated. - Cells for cytology obtained in the lower third of the main duct. Recommendations : My findings are described in the full procedure note, which is enclosed. If I can be of further assistance, please feel free to contact me at . Sincerely, Lorne Alberts, 12/20/2021 1:20:08 PM This report has been signed electronically.
--- NOTE | 2021-12-20 14:50 | CASEMGMT ---
SW went to follow up with patient, however he just returned from his test and is sleeping. [facility] will check back before SW leaves for the day. Gerri DENNY
--- NOTE | 2021-12-20 15:19 | PCM.PN.HOSP ---
Subjective Subjective Follow-up for acute on recurrent pancreatitis. Patient denies abdominal pain. Patient went to ERCP and return to the floor in afternoon. No fever. Patient mild upset about the finding of ERCP. Patient has history of biliary stricture and had 2 times stents in the past. It was removed. Objective Data Objective Data Vital Signs: Vital Signs Temp Pulse Resp BP Pulse Ox 98.7 F 58 L 16 134/82 H 99 12/20/21 14:01 12/20/21 14:01 12/20/21 14:01 12/20/21 14:01 12/20/21 14:01 Oxygen Flow Rate (L/min) 2 Oxygen Delivery Method Room Air Weight: 159 lb 2.78 oz Body Mass Index (BMI) 22.1 Intake & Output: Intake and Output for Last 24 Hours 12/18/21 12/19/21 12/20/21 23:59 23:59 23:59 Intake Total 2877.5 / 2877.5 2303.33 / 2543.33 2216.67 / 2216.67 Output Total 2050 / 3030 2660 / 3060 700 / 700 Balance 827.5 / -152.5 -356.67 / -516.67 1516.67 / 1516.67 Lab / Micro Data Result Diagrams: 12/20/21 04:57 12/20/21 04:57 Labs: Laboratory Results - last 24 hr 12/20/21 04:57: WBC 8.1, RBC 4.93, Hgb 14.9, Hct 42.9, MCV 87.0, MCH 30.2, MCHC 34.7, RDW Std Deviation 39.2, RDW Coeff of Ghanshyam 12.3, Plt Count 171, MPV 10.2, Immature Gran % (Auto) 0.200, Neut % (Auto) 82.6 H, Lymph % (Auto) 8.5 L, [place] % (Auto) 7.7, Eos % (Auto) 0.6, Baso % (Auto) 0.4, Absolute Neuts (auto) 6.7, Absolute Lymphs (auto) 0.69 L, Nucleated RBC % 0 12/20/21 04:57: Sodium 139, Potassium 3.9, Chloride 110 H, Carbon Dioxide 20.0 L, Anion Gap 9, BUN 15, Creatinine 0.88, Estim Creat Clear Calc 90.02, Est GFR (MDRD) Af Amer 113, Est GFR (MDRD) Non-Af 94, BUN/Creatinine Ratio 17.0, Glucose 78, Calcium 8.6, Total Bilirubin 0.80, AST 16, ALT 29, Alkaline Phosphatase 74, Total Protein 6.8, Albumin 3.6, Globulin 3.2, Albumin/Globulin Ratio 1.1 Micro: Microbiology 12/19/21 09:45 Nasal Secretion SARS-CoV-2 Antigen (Rapid) - Final Radiography Diagnostic Testing: Radiology Impression MRCP 12/19/21 12:00 IMPRESSION: Ill-defined 5 cm mass in the head of the pancreas with associated main pancreatic duct dilatation. Recommend CT abdomen pancreatic mass protocol for staging. Electronically Signed: Aime Baires MD at 18:09 EST , Endo Retro Cholangiopancreatogram 12/20/21 07:06 IMPRESSION: Fluoroscopic services provided for ERCP. Electronically Signed: Tyrone Melvin MD at 15:09 EST , Physical Exam Narrative Physical exam Mild irritation/discomfort in throat from ERCP. General: Alert, Oriented x3, Cooperative HEENT: Atraumatic, PERRLA, EOMI, Normocephalic Oral: No Gingival or Mucosal Lesions/ Ulcerations Neck: Supple, No JVD, Negative Carotid Bruits Lungs: Air entry equal in bilateral lung bases. No crepitation/rhonchi Cardiovascular: Regular rate, Regular Rhythm, Normal S1, Normal S2, No murmurs Abdomen: Bowel Sounds Present, Soft, Non Tender, Non-Distended. No palpable mass : No renal angle tenderness. No suprapubic tenderness. Extremities: No edema, Capillary Refill Less than 3 Seconds Skin: No rashes, No breakdown Musculoskeletal: No Tenderness to Palpation of Joints or Extremities Neurological: Cranial nerves II-XII grossly intact, DTR 2+/4 and Symmetrical, Neuro grossly intact Psych/Mental Status: Normal Affect, Appropriate. Assessment & Plan Assessment/Plan (1) Pancreatitis: QUALIFIERS: Chronicity: acute Pancreatitis type: unspecified pancreatitis type Acute pancreatitis complication: no infection or necrosis Qualified Code(s): K85.90 - Acute pancreatitis without necrosis or infection, unspecified (2) Dyspnea on exertion: (3) Chest pain: QUALIFIERS: Chest pain type: unspecified Qualified Code(s): R07.9 - Chest pain, unspecified PLAN: Acute on chronic pancreatitis, exact etiology unclear. Patient had history of chronic alcohol use which he discontinued after the onset of pancreatitis, 3 years ago. History of recurrent pancreatitis. Had cholecystectomy for gallbladder sludge. No fever. Patient had MRI pancreas with contrast on 12/03/2021 and images reviewed it reported as mild pancreatic inflammation compatible with acute interstitial pancreatitis. Focal pancreatic parenchymal volume loss at head of pancreas with dilation of pancreatic duct and CBD with fairly smooth marginated border. This could be possible due to sequela of previous pancreatitis with ductal stricture, however a small pancreatic head neoplasm must also be considered. Lipase more than 1500. Patient does not have tenderness, leukocytosis or fever therefore diet advanced to soft diet. GI is consulted. BUN was elevated and repeat normal. Hematocrit 44% -39% Continue Ringer lactate 12/19: Plan for ERCP today. 12/20: ERCP was done. Discussed with the GI Dr. Friend. 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 Entire main bile duct dilated, uncertain significance. Tree was swept and sludge was found. CBD successfully dilated. Cells for cytology sent. CA 19-9 normal 8 units/mL. Soft diet resumed. Patient feels mild groggy from procedure. Anticipates discharge tomorrow. Dyspnea on exertion/chest pain 12/18: Echo is done. Troponin was negative. EKG showed QTC prolongation. Avoid QTC prolongation drugs. Received full dose aspirin emergency department. Baby aspirin daily ordered. Lipid profile ordered 12/19: Echo reviewed. EF 65%. Mild TR. RVSP 30 mmHg. QTC prolongation. EKG tracing was reviewed. QTC of 506. Serum magnesium normal 2.3. Avoid QTC prolongation drugs. DVT prophylaxis, moderate to high risk because of pancreatitis: SCD ordered. Started on Lovenox 40 mils subcu daily. Total time of the visit includes total time spent in counseling or coordination of care, (more than 50% of the total time, spent in obtaining medical information from nurses and other ancillary care providers,explaining to the patient about labs, imaging, diagnosis and management), discussion with GI ux consultant, review of labs and outside MRI report and imaging 25 minutes Charges/Coding Visit Charges Inpatient E&M: 84613 Subs Hosp L2
--- NOTE | 2021-12-20 15:52 | CASEMGMT ---
SW met with patient and he was open to talking. Patient was frustrated today and most of conversation was around his frustration with the world and how things are going right now. He is anticipating the worst in regards to his Pancreas. SW tried to encourage him to stay positive and not automatically think the worst until he talks with the physician. SW listened and provided emotional support. Physician then came into the room to see patient. SW told patient SW will talk with him tomorrow. Gerri DENNY
[2021-12-20 16:01] LABS: Carbohydrate AG 19-9 8 U/mL (0-35)
[2021-12-20] MEDS: Sertraline 50 MG Tablet PO (16:13)
[2021-12-20] MEDS: Acetaminophen 325 MG Tablet 650 MG PO ×2 (17:21→23:23)
[2021-12-20] MEDS: Atorvastatin Calcium 10 MG Tablet PO (21:45)
[2021-12-20] MEDS: LORazepam 0.5 MG Tablet PO (21:46)
[2021-12-20] MEDS: oxyCODONE 5 MG Tablet PO (23:26)
[2021-12-21 02:59] VITALS: PULSE 55
[2021-12-21 03:48] VITALS: BP 133/86; PULSE 55; RESP 16; TEMP 36.6; O2SAT 97
[2021-12-21 06:46] VITALS: PULSE 52
[2021-12-21 07:11] VITALS: O2SAT 98
[2021-12-21 08:06] VITALS: BP 143/103; PULSE 71; RESP 18; TEMP 37; O2SAT 99
[2021-12-21] MEDS: Aspirin 81 MG TAB.CHEW PO (08:20)
[2021-12-21] MEDS: Sertraline 50 MG Tablet PO (08:20)
[2021-12-21] MEDS: Pantoprazole Sodium 40 MG Tablet PO (08:20)
[2021-12-21] MEDS: Enoxaparin 40 MG/0.4 ML Syringe SC (08:20)
[2021-12-21] MEDS: oxyCODONE 5 MG Tablet PO (08:26)
[2021-12-21] MEDS: Lactated Ringers 1,000 ML 100 ML IV (10:03)
--- NOTE | 2021-12-21 10:03 | PCM.DC ---
Discharge Instructions Diet Discharge Diet: Soft diet (For 3 days and then regular diet. Avoid high fat/oily diet) Activity Discharge Activity: Return to Normal Activity Dressing / Incision Call your doctor if you observe: Fever of 101 or Higher, Coldness, Increased Pain, Numbness or Tingling, Change in Color, Inability to urinate, Inability to have a bowel movement, Shortness of breath, Dizziness, Fainting spells, Swelling in the ankles, Chest pain, Prolonged hiccupping, Increased palpitations (irregular heartbeat), Calf discomfort and Uncontrolled pain Follow Up Care Test Results: Test results from this visit will be discussed in further detail at your follow-up appointment, if applicable. Discharge Plan Admission Admit Date/Time: 12/17/21 20:10 Primary Reason for Your Visit: Acute on recurrent pancreatitis Attending Provider: Matteo Mcdaniel Primary Care Provider: Ziggy Smith Consulting Providers: Lorne Alberts Discharge Orders/Prescriptions Prescriptions: Continued atorvastatin 10 mg tablet 10 mg PO DAILY RF: 0 omeprazole 40 mg capsule,delayed release(DR/EC) 40 mg PO DAILY RF: 0 sertraline 50 mg tablet 50 mg PO DAILY RF: 0 Creon 12,000-38,000 -60,000 unit capsule,delayed release(DR/EC) 3 cap PO TIDCM RF: 0 hydrocodone-acetaminophen 5-325 mg tablet 1 tab PO Q6H PRN (Reason: Pain) RF: 0 lorazepam 0.5 mg Tablet 0.5 mg PO BID PRN (Reason: Anxiety) RF: 0 Referrals / Follow Up: Ziggy Smith MD [Primary Care Provider] - Within 1 Week Lorne Alberts DO [STAFF PHYSICIAN] - Within 1 Month (For biliary stricture) Disposition Disposition (needs filled in before D/C Order can be placed): Home, Self Care
--- NOTE | 2021-12-21 11:40 | DS.PCM_ITS ---
Providers Date of Admission: 12/17/21 Date of Discharge: 12/21/21 Primary Care Physician: Dr. Ziggy Smith MD Consultations 12/17/21 20:49 Consult: Gastroenterology Routine Consulting Provider: LexusLorne Reason for Consult: Pancreatitis; possible pancreatic neoplasm EMERGENT Consult: No MD Notified: Yes Date Notified: 12/18/21 Time Notified: 06:30 Method of Notification: Text Reason For Visit: ACUTE PANCREATITIS Diagnosis Discharge Diagnosis (1) Pancreatitis: Status: Acute Code(s): K85.90 - Acute pancreatitis without necrosis or infection, unspecified Qualifiers: Chronicity: acute Pancreatitis type: unspecified pancreatitis type Acute pancreatitis complication: no infection or necrosis Qualified Code(s): K85.90 - Acute pancreatitis without necrosis or infection, unspecified (2) Dyspnea on exertion: Status: Acute Code(s): R06.00 - Dyspnea, unspecified (3) Chest pain: Status: Acute Code(s): R07.9 - Chest pain, unspecified Qualifiers: Chest pain type: unspecified Qualified Code(s): R07.9 - Chest pain, unspecified Medications at Discharge Home Medications Creon 3 cap PO TIDCM 12/17/21 atorvastatin 10 mg PO DAILY 12/17/21 hydrocodone-acetaminophen 1 tab PO Q6H PRN 12/17/21 omeprazole 40 mg PO DAILY 12/17/21 sertraline 50 mg PO DAILY 12/17/21 lorazepam 0.5 mg PO BID PRN 12/18/21 Hospital Course Summary of Care Provided Hospital Course: This 61-year-old question gentleman with history of recurrent pancreatitis status post biliary stent and removal in the past cholecystectomy was admitted with shortness of breath 2 to 3 days prior to admission dizziness and lower substernal/epigastric abdominal pain. Patient was in [facility] and recently had MRI of the pancreas. His hospital course, evaluation, assessment and management plan as follows Acute on chronic pancreatitis, exact etiology unclear. Patient had history of chronic alcohol use which he discontinued after the onset of pancreatitis, 3 years ago. History of recurrent pancreatitis. Had cholecystectomy for gallbladder sludge. No fever. Patient had MRI pancreas with contrast on 12/03/2021 and images reviewed it reported as mild pancreatic inflammation compatible with acute interstitial pancreatitis. Focal pancreatic parenchymal volume loss at head of pancreas with dilation of pancreatic duct and CBD with fairly smooth marginated border. This could be possible due to sequela of previous pancreatitis with ductal stricture, however a small pancreatic head neoplasm must also be considered. Lipase more than 1500. Patient does not have tenderness, leukocytosis or fever therefore diet advanced to soft diet. GI is consulted. BUN was elevated and repeat normal. Hematocrit 44% -39%. Patient was volume resuscitated with IV fluid. 12/20: ERCP was done. Discussed with the GI Dr. Alberts. 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 Entire main bile duct dilated, unce rtain significance. Tree was swept and sludge was found. CBD successfully dilated. Cells for cytol ogy sent. CA 19-9 normal 8 units/mL. Soft diet resumed. Patient has mild anal discomfort probably after the procedure. Pain is not like pancreatitis pain. Continue soft diet and then changed to regular diet except oily/fatty food. Dyspnea on exertion/chest pain: Troponin was negative. EKG showed QTC prolongation. Avoid QTC prolongation drugs. Received full dose aspirin emergency department. Baby aspirin daily ordered. Echo reviewed. EF 65%. Mild TR. RVSP 30 mmHg. No regional wall motion abnormality. Baby aspirin discontinued. Acute coronary syndrome ruled out. Fasting profile within normal limit. QTC prolongation. EKG tracing was reviewed. QTC of 506. Serum magnesium normal 2.3. Avoid QTC prolongation drugs. Repeat EKG shows improvement in QTc interval, follow 96 ms. DVT prophylaxis, moderate to high risk because of pancreatitis: SCD ordered. Started on Lovenox 40 mils subcu daily. Discharge medication reconciliation done. Discharge follow-up instructions co mpleted. Discharge process discussed with the patient and all questions were answered to patient's satisfaction. Patient agreed to follow Dr. Alberts as an outpatient. She used to follow Dr. Huitron but not very happy. Follow-up with ERCP brush cytology as an outpatient. Total time spent, exact 35 minutes on discharge meds reconciliation, examination, coordination of care with nurses and ancillary staff, review of imaging and blood test and discussion with the patient on follow-up instructi ons Physical Exam Narrative Physical exam Mild abdominal discomfort in right lower/umbilical region related to the procedure. Denies epigastric pain/xiphisternum pain due to pancreatitis. General: Alert, Oriented x3, Cooperative HEENT: Atraumatic, PERRLA, EOMI, Normocephalic Oral: No Gingival or Mucosal Lesions/ Ulcerations Neck: Supple, No JVD, Negative Carotid Bruits Lungs: Air entry equal in bilateral lung bases. No crepitation/rhonchi Cardiovascular: Regular rate, Regular Rhythm, Normal S1, Normal S2, No murmurs Abdomen: Bowel Sounds Present, Soft, Non Tender, Non-Distended. No palpable mass : No renal angle tenderness. No suprapubic tenderness. Extremities: No edema, Capillary Refill Less than 3 Seconds Skin: No rashes, No breakdown Musculoskeletal: No Tenderness to Palpation of Joints or Extremities Neurological: Cranial nerves II-XII grossly intact, DTR 2+/4 and Symmetrical, Neuro grossly intact Psych/Mental Status: Normal Affect, Appropriate. Weight / BMI Weight Weight: 159 lb 2.78 oz Body Mass Index (BMI) 22.1 ABG / Lab / Microbiology Data Result Diagrams: 12/20/21 04:57 12/20/21 04:57 Laboratory: Laboratory Results - last 24 hr 12/19/21 05:16: CA 19-9 Antigen 8 Microbiology: Microbiology 12/19/21 09:45 Nasal Secretion SARS-CoV-2 Antigen (Rapid) - Final Radiography Diagnostic Testing: Radiology Impression Endo Retro Cholangiopancreatogram 12/20/21 07:06 IMPRESSION: Fluoroscopic services provided for ERCP. Electronically Signed: Tyrone Melvin MD at 15:09 EST Reading Location ID and State: [facility] / [place] , Service support , D/C Instructions Discharge Diet: Soft diet (For 3 days and then regular diet. Avoid high fat/oily diet) Call your doctor if you observe: Fever of 101 or Higher, Coldness, Increased Pain, Numbness or Tingling, Change in Color, Inability to urinate, Inability to have a bowel movement, Shortness of breath, Dizziness, Fainting spells, Swelling in the ankles, Chest pain, Prolonged hiccupping, Increased palpitations (irregular heartbeat), Calf discomfort and Uncontrolled pain Meaningful Use Info Meaningful Use Diagnoses (Choose all that apply): None applicable Discharge Plan Admission Admit Date/Time: 12/17/21 20:10 Primary Reason for Your Visit: Acute on recurrent pancreatitis Attending Provider: Matteo Mcdaniel Primary Care Provider: Ziggy Smith Consulting Providers: Lorne Alberts Discharge Orders/Prescriptions Prescriptions: Continued atorvastatin 10 mg tablet 10 mg PO DAILY RF: 0 omeprazole 40 mg capsule,delayed release(DR/EC) 40 mg PO DAILY RF: 0 sertraline 50 mg tablet 50 mg PO DAILY RF: 0 Creon 12,000-38,000 -60,000 unit capsule,delayed release(DR/EC) 3 cap PO TIDCM RF: 0 hydrocodone-acetaminophen 5-325 mg tablet 1 tab PO Q6H PRN (Reason: Pain) RF: 0 lorazepam 0.5 mg Tablet 0.5 mg PO BID PRN (Reason: Anxiety) RF: 0 Referrals / Follow Up: Ziggy Smith MD [Primary Care Provider] - Within 1 Week Lorne Alberts DO [STAFF PHYSICIAN] - Within 1 Month (For biliary stricture) Disposition Disposition (needs filled in before D/C Order can be placed): Home, Self Care
--- NOTE | 2021-12-21 16:40 | CASEMGMT ---
SW met with patient earlier today. Patient was feeling a little better. He does have some anxiety about his biopsy results. Patient felt Dr Friend was positive about his outcome and he appreciated this. SW encouraged patient when he starts to think negative about his health think about his conversation with Dr Friend. Patient was appreciative of SW checking in with him and listening to him. Gerri Busby BAIT TIER EDUIN
== END 2021-12-21 14:06 | disposition home or self-care (01) | DRG 438 ==
LOC: ED 20:07 → PCU 20:19
PROVIDERS: Internal Medicine Gastroenterology; Admitting Provider Hospitalist; Emergency Provider Emergency Medicine; PCP Family Medicine; Visit Provider Internal Medicine
PROC: 0FC98ZZ Extirpation of Matter from Common Bile Duct, Via Natural or Artificial Opening Endoscopic (ICD-10-PCS; CPT 43260; principal; 2021-12-20 10:10)
DX: K85.90 Acute pancreatitis without necrosis or infection, unspecified (principal); K83.1 Obstruction of bile duct; K86.3 Pseudocyst of pancreas; K86.1 Other chronic pancreatitis; K83.8 Other specified diseases of biliary tract; I07.1 Rheumatic tricuspid insufficiency; R07.9 Chest pain, unspecified; R06.00 Dyspnea, unspecified; Z87.891 Personal history of nicotine dependence
CPT/HCPCS: 36415; 71045; 71275; 74181; 74330; 80048; 80053; 80061; 80076; 83690; 83735; 84484; 85025; 86301; 87426; 88108; 88304; 88305; 88313; 93005; 93306; 99285; J7030; J7120; Q9967; A4216; C1769; J2405

== ENCOUNTER 2022-02-13 20:20 | Emergency (ER) | payer OTHER, SELFPAY ==
[2022-02-13 20:21] VITALS: BP 177/96; PULSE 67; RESP 15; TEMP 36.6; O2SAT 100; BMI 23.0
--- NOTE | 2022-02-13 20:43 | ED.VIS.GI ---
HPI HPI - GI History of Present Illness Chief Complaint: Abd Pain Informant: patient Narrative Narrative: Presents to ED progressing mid abdominal pain since yesterday. No nausea vomiting diarrhea. History of pancreatitis on Creon. He stopped drinking alcohol over 3 years ago. He is followed by Dr. Alberts. Last admission was this past November have an ERCP had stenosis of his common bile duct that was noted to be dilated however no stenting was able to be performed. He is on hydrocodone's for pain he started taking yesterday today is taking 3/2 tab doses last time was 7 PM. Pain is increasing. Typically does not vomit with his pancreatitis. He was referred to [facility] to have additional ERCP with brush sweeping last month which was done he states results were negative. There is no stenting at that time either. Denies urinary symptoms. Denies fever. Allergies to hydromorphone however is tolerated morphine to help with symptoms. He states it feels similar to his pancreatitis. Prior similar symptoms: Yes PFSH PFSH Medical History Anxiety Hx of pancreatitis Pancreatitis Pancreatitis Home Medications Creon 3 cap PO TIDCM 12/17/21 [History Last Taken 12/17/21] atorvastatin 10 mg PO DAILY 12/17/21 [History Last Taken 12/17/21] hydrocodone-acetaminophen 1 tab PO Q6H PRN 12/17/21 [History Last Taken 12/16/21 23:30] omeprazole 40 mg PO DAILY 12/17/21 [History Last Taken 12/17/21] sertraline 50 mg PO DAILY 12/17/21 [History Last Taken 12/17/21] lorazepam 0.5 mg PO BID PRN 12/18/21 [History Last Taken Unknown] hydrocodone-acetaminophen 1 tab PO Q6H PRN 3 Days #12 tab 02/13/22 [Rx Last Taken Unknown] Allergy/AdvReac Type Severity Reaction Status Date / Time amoxicillin [From Augmentin] Allergy Swelling Verified 02/13/22 20:27 clavulanic acid Allergy Swelling Verified 02/13/22 20:27 [From Augmentin] Penicillins Allergy PT UNSURE Verified 02/13/22 20:27 OF REACTION hydromorphone [From Dilaudid] AdvReac Other Verified 02/13/22 20:27 Family History Father Myocardial infarction Surgical History Hx of cholecystectomy S/P appendectomy Social History Smoking Status: Former smoker ROS ROS ED Constitutional Constitutional ED: Denies chills, fever(s) or sweats Eyes Eyes: Denies change in vision ENT ENT ED: Denies dysphagia or sore throat Cardiovascular Cardiovascular: Denies chest pain, leg edema, palpitations or racing heartbeat Respiratory/Chest Respiratory/Chest: Denies cough, dyspnea or dyspnea on exertion Gastrointestinal Gastrointestinal: Reports abdominal pain; Denies diarrhea, nausea or vomiting Genitourinary Genitourinary ED: Denies dysuria, hematuria or urinary frequency Musculoskeletal Musculoskeletal: Denies back pain, extremity pain or neck pain Integumentary Denies rash or wounds Neurologic Neurologic: Denies headache(s), paresthesias or weakness EXAM Physical Exam Const Vital Signs: 02/13/22 20:21 02/13/22 21:36 Temperature 97.9 F Temperature Source Temporal Pulse Rate 67 Respiratory Rate 15 Blood Pressure 177/96 H 152/75 H Blood Pressure Mean 123 Pulse Ox 100 Oxygen Delivery Method Room Air Positive well nourished and well developed Constitutional Narrative: Mild uncomfortable, nontoxic General Appearance ED: well developed and NAD HEENT Reports moist mucous membranes normocephalic and atraumatic Eyes PERRL, EOMs intact bilaterally and conjunctivae normal General Eye ED: Yes normal appearance of both eyes Neck no lymphadenopathy and supple General: Negative for tenderness Chest Wall Chest: Negative for tenderness Resp normal respiratory effort and normal air movement Effort and Inspection: symmetric chest movement; Negative for respiratory distress Cardio regular rate, regular rhythm and no murmurs Peripheral Pulses: pulses 2+ throughout GI normal to inspection, nondistended, normoactive bowel sounds GI Narrative: Mild mid abdominal tenderness without guarding or rebound. Palpation: Negative for guarding or rebound tenderness present Back/Spine no CVA tenderness and no thoracic nor lumbar tenderness Extremity normal to inspection General Extremety ED: Negative for edema or tenderness General Extremity: Negative for edema Neuro oriented x3 and no sensory deficits noted Sensorium / Orientation: awake and alert Skin no rashes or lesions noted and no wounds MDM MDM MDM Narrative Medical decision making narrative: Patient with a nonsurgical abdomen. Primary complaints pain. Agreed with morphine. This was given along with Zofran and fluids. Laboratory studies lipase returned at 3099, normal LFTs. History of cholecystectomy. White count 8.4. On reevaluation he was symptom-free. He has had multiple occurrences in the past he understands bowel rest and clear liquids and advance as tolerated. Discussed concerns for hospitalization however he states he would like to try to go home and do clear liquids at home for the next 24 hours he has hydrocodone at home. He states he never throws up with the pain. He is on Creon. He understands to process. I feel this is appropriate with his history. Return precautions discussed. Refill of [place] was written. He is given follow-up with Dr. Alberts as he is established with him. Lab Data Attestation: I reviewed the patient's lab results. Labs: Laboratory Results - last 24 hr 02/13/22 02/13/22 20:43 20:43 WBC 8.4 RBC 5.07 Hgb 15.1 Hct 44.2 MCV 87.2 MCH 29.8 MCHC 34.2 RDW Std Deviation 39.7 RDW Coeff of Ghanshyam 12.5 Plt Count 197 MPV 10.1 Immature Gran % (Auto) 0.100 Neut % (Auto) 71.5 H Lymph % (Auto) 19.6 Scott % (Auto) 7.4 Eos % (Auto) 1.0 Baso % (Auto) 0.4 Absolute Neuts (auto) 6.0 Absolute Lymphs (auto) 1.64 Nucleated RBC % 0 Platelet Estimate ADEQUATE RBC Morphology NORM C+C Sodium 139 Potassium 5.3 H Chloride 105 Carbon Dioxide 30.0 Anion Gap 4 L BUN 19 H Creatinine 1.05 Estim Creat Clear Calc 78.21 Est GFR (MDRD) Af Amer 92 Est GFR (MDRD) Non-Af 76 BUN/Creatinine Ratio 18.1 Glucose 133 H Calcium 9.0 Total Bilirubin 0.40 Direct Bilirubin < 0.05 AST 53 H ALT 32 Alkaline Phosphatase 84 Total Protein 7.7 Albumin 3.9 Globulin 3.8 Lipase 3099 H Discharge Plan Triage Chief Complaint: Abd Pain ED Provider: William Quarles Dx/Rx/DC Orders Clinical Impression: Acute pancreatitis, Abdominal pain Instructions: Abdominal Pain, ED Pancreatitis Prescriptions: New hydrocodone-acetaminophen 5-325 mg tablet 1 tab PO Q6H PRN (Reason: pain) 3 Days Qty: 12 RF: 0 No Action atorvastatin 10 mg tablet 10 mg PO DAILY RF: 0 omeprazole 40 mg capsule,delayed release(DR/EC) 40 mg PO DAILY RF: 0 sertraline 50 mg tablet 50 mg PO DAILY RF: 0 Creon 12,000-38,000 -60,000 unit capsule,delayed release(DR/EC) 3 cap PO TIDCM RF: 0 hydrocodone-acetaminophen 5-325 mg tablet 1 tab PO Q6H PRN (Reason: Pain) RF: 0 lorazepam 0.5 mg Tablet 0.5 mg PO BID PRN (Reason: Anxiety) RF: 0 Primary Care Provider: Ziggy Smith Referrals: Ziggy Smith MD [Primary Care Provider] - Lorne Alberts DO [STAFF PHYSICIAN] - 5-7 Days Disposition Disposition: Home, Self Care Discharge Date/Time: 02/13/22 21:38
[2022-02-13] MEDS: 0.9% Normal Saline 1,000 ML 125 ML IV (20:46)
[2022-02-13] MEDS: Morphine 4 MG/ML Syringe IV (20:47)
[2022-02-13] MEDS: Ondansetron 4 MG/2 ML Vial IV (20:47)
[2022-02-13 21:01] LABS: Absolute Lymphocyte Count 1.64 X10^3/uL (0.83-4.51); Basophil# 0.03 X10^3/uL; Basophil% 0.4 % (0-1); Eosinophil# 0.08 X10^3/uL; Hematocrit 44.2 % (40-54); Hemoglobin 15.1 g/dL (13.0-16.5); Lymphocyte # 1.64 X10^3/ul (0.83-4.51); Lymphocyte % 19.6 % (19-41); Mean Corp Hgb Conc 34.2 g/dL (32-36); Mean Corpuscular Hgb 29.8 pg (27.0-32.0); Mean Corpuscular Volume 87.2 fL (80-94); Mean Platelet Vol. 10.1 fl (6.2-12.0); Monocyte# 0.62 X10^3/uL; Monocyte% 7.4 % (0-10); NRBC Flagged by Analyzer 0 % (0-5); Neutrophil # 5.99 X10^3/uL (2.7-7.7); Neutrophil % 71.5 % (47-70); POSITIVE COUNT YES; Platelet Count 197 K/mm3 (150-450); RBC Distribution Width CV 12.5 % (11.6-14.6); RBC Distribution Width SD 39.7 fl (35.1-43.9); Red Blood Count 5.07 M/mm3 (4.6-6.2); White Blood Count 8.4 K/mm3 (4.4-11.0)
[2022-02-13 21:02] LABS: Differential Indicated SCAN CRITERIA MET
[2022-02-13 21:14] LABS: AST(SGOT) 53 U/L (15-37); Alanine Aminotransfer ALT/SGPT 32 U/L (16-61); Albumin, Serum 3.9 g/dL (3.2-5.0); Alkaline Phosphatase 84 U/L (45-117); Anion Gap 4 (5-15); BUN 19 mg/dL (7-18); BUN/Creat Ratio 18.1 RATIO (10-20); Bilirubin, Direct < 0.05 mg/dL (0.00-0.30); Chloride 105 mmol/L (98-107); Creatinine, Serum 1.05 mg/dL (0.70-1.30); EST Glomerular Filtration Rate 76 mL/min (>60); Est Glom Filt Rate - Afr Amer 92 mL/min (>60); Estimated Creatinine Clearance 78.21 ml/min; Globulin 3.8 g/dL (2.2-4.2); Glucose 133 mg/dL (74-106); Lipase 3099 U/L (73-393); Potassium 5.3 mmol/L (3.5-5.1); Protein, Total 7.7 g/dL (6.4-8.2); Sodium Level 139 mmol/L (136-145)
[2022-02-13 21:31] LABS: Platelet Estimate ADEQUATE (ADEQ); Red Cell Morphology NORM C+C NORMAL (NORM C&C)
[2022-02-13 21:36] VITALS: BP 152/75
== END 2022-02-13 21:38 | disposition home or self-care (01) ==
PROVIDERS: Emergency Provider Emergency Medicine; PCP Family Medicine; Visit Provider Emergency Medicine
DX: K85.90 Acute pancreatitis without necrosis or infection, unspecified (principal); F41.9 Anxiety disorder, unspecified; Z79.899 Other long term (current) drug therapy; Z87.891 Personal history of nicotine dependence; Z90.49 Acquired absence of other specified parts of digestive tract
CPT/HCPCS: 80048; 80076; 83690; 85025; 96361; 96374; 96375; 99283; J7030; A4216; J2405

== ENCOUNTER 2022-05-23 14:38 | Emergency (ER) | payer OTHER, SELFPAY ==
[2022-05-23 14:38] VITALS: BP 146/107; PULSE 65; RESP 18; TEMP 37; O2SAT 99; BMI 23.0
--- NOTE | 2022-05-23 14:59 | NURSING ---
PT DECIDES TO LEAVE WITHOUT BEING SEEN
== END 2022-05-23 14:55 | disposition left against medical advice (07) ==
LOC: ED 14:59
PROVIDERS: PCP Family Medicine
DX: Z00.00 Encounter for general adult medical examination without abnormal findings (principal)

== ENCOUNTER → 2022-05-31 | Outpatient (CLI) | payer SELFPAY ==
[2022-05-31 14:41] LABS: Absolute Lymphocyte Count 1.77 X10^3/uL (0.83-4.51); Absolute Neutrophil Count 4.1 X10^3/uL (2.0-7.7); Basophil# 0.05 X10^3/uL; Basophil% 0.7 % (0-1); Eosinophil# 0.26 X10^3/uL; Eosinophils% 3.8 % (0-5); Hematocrit 42.1 % (40-54); Lymphocyte # 1.77 X10^3/ul (0.83-4.51); Lymphocyte % 25.8 % (19-41); Mean Corp Hgb Conc 33.3 g/dL (32-36); Mean Corpuscular Hgb 29.5 pg (27.0-32.0); Mean Corpuscular Volume 88.6 fL (80-94); Mean Platelet Vol. 10.4 fl (6.2-12.0); Monocyte# 0.66 X10^3/uL; Monocyte% 9.6 % (0-10); NRBC Flagged by Analyzer 0 % (0-5); Neutrophil % 59.8 % (47-70); Platelet Count 213 K/mm3 (150-450); RBC Distribution Width SD 42.3 fl (35.1-43.9); Red Blood Count 4.75 M/mm3 (4.6-6.2); White Blood Count 6.9 K/mm3 (4.4-11.0)
[2022-05-31 15:38] LABS: BUN 16 mg/dL (7-18); Creatinine, Serum 1.05 mg/dL (0.70-1.30); Glucose 95 mg/dL (74-106)
[2022-05-31 15:39] LABS: ALB/GLOB Ratio 1.2 RATIO (0.9-2.4); AST(SGOT) 16 U/L (15-37); Alanine Aminotransfer ALT/SGPT 24 U/L (16-61); Alkaline Phosphatase 76 U/L (45-117); Amylase 268 U/L (25-115); Anion Gap 3 (5-15); BUN/Creat Ratio 15.2 RATIO (10-20); Calcium,Total 8.6 mg/dL (8.5-10.1); Chloride 108 mmol/L (98-107); EST Glomerular Filtration Rate 76 mL/min (>60); Est Glom Filt Rate - Afr Amer 92 mL/min (>60); Globulin 3.2 g/dL (2.2-4.2); LDH 178 U/L (87-241); Lipase 2408 U/L (73-393); Potassium 3.8 mmol/L (3.5-5.1); Protein, Total 7.2 g/dL (6.4-8.2); Sodium Level 140 mmol/L (136-145); Triglycerides 116 mg/dL
[2022-06-03 12:08] LABS: LDL, Direct 120295 115 mg/dL (0-99)
[2022-06-03 16:54] LABS: Carbohydrate Ag 19-9 2261 9 U/mL (0-35)
== END | disposition home or self-care (01) ==
PROVIDERS: PCP Family Medicine; Visit Provider Internal Medicine Gastroenterology
DX: Z87.19 Personal history of other diseases of the digestive system (principal)
CPT/HCPCS: 36415; 80053; 82150; 83615; 83690; 83721; 84478; 85025; 86301

== ENCOUNTER 2022-07-04 09:08 | Emergency (ER) | payer MEDICAID, SELFPAY ==
[2022-07-04 09:10] VITALS: BP 163/119; PULSE 87; RESP 14; TEMP 36.8; O2SAT 93; BMI 22.6
--- NOTE | 2022-07-04 09:19 | CT_ITS ---
STUDY: CT CHEST, ABDOMEN T PELVIS WITHOUT CONTRAST REASON FOR EXAM: Male, 61 years old. Chest pain. Emesis. Syncopal episode. RADIATION DOSAGE (If Supplied By Facility): CTDIvol = ( 7.61 ) mGy, DLP = ( 814.91 ) mGycm TECHNIQUE: Transaxial imaging was performed without the administration of intravenous contrast material. Individualized dose optimization techniques were used for this CT. COMPARISON: Comparison is made with prior CT scan of thorax dated 12/17/2001. FINDINGS: CHEST Hyperinflation. Scarring at the lung apices. There is no demonstrated pleural abnormality. There are calcifications of the coronary arteries. Normal mediastinum. Normal hilar regions. Normal unenhanced pulmonary arteries. Aneurysmal dilatation of the ascending aorta. This measures 4.45 cm. Loss of the normal thoracic kyphosis. There is no demonstrated abnormality of the visualized upper abdomen. ABDOMEN The visualized lung bases are unremarkable. The visualized portions of the heart are within normal limits. Mild degree of central intrahepatic biliary ductal dilatation. The patient is status post cholecystectomy. Dilatation of the common bile duct as well as the pancreatic duct. Normal spleen. The pancreas is diffusely enlarged. There is prominence of the head and uncinate process of the pancreas. Correlation with ultrasound of the pancreas is recommended. Normal bilateral adrenal glands. Normal right kidney. Normal left kidney. Normal visualized stomach. Normal small intestine. Normal colon. The appendix is visualized and appears normal. There is diffuse atherosclerotic calcification of the abdominal aorta, without a demonstrated aneurysm. Normal inferior vena cava. There is borderline retroperitoneal lymphadenopathy with enlarged nodes no greater than 10mm in the short axis diameter. There is a small umbilical hernia containing fat. Normal osseous structures. PELVIS Distended urinary bladder. The prostate is enlarged. It measures 5.2 cm x 6.7 cm. This causes indentation of the bladder base. There is no pelvic fluid. There is no pelvic lymphadenopathy or mass lesion. There is diffuse atherosclerotic calcification of the pelvic arteries. CT/CT Chest, Abd, Pelvis WO Cont IMPRESSION: Hyperinflation. Scarring at the lung apices. Status post cholecystectomy with central intrahepatic biliary ductal dilatation. Dilated pancreatic duct. Diffuse enlargement of the pancreas with the prominence of the head and uncinate process. Correlation with ultrasound is recommended for further evaluation. Electronically Signed: Tyrone Melvin MD at 11:55 EDT ,
--- NOTE | 2022-07-04 09:19 | EKG12_ITS ---
Test Reason : ABD PAIN Blood Pressure : / mmHG Vent. Rate : 062 BPM Atrial Rate : 062 BPM P-R Int : 152 ms QRS Dur : 102 ms QT Int : 464 ms P-R-T Axes : 017 025 059 degrees QTc Int : 470 ms Normal sinus rhythm Normal ECG Confirmed by JANAE VILLAVICENCIO, PHU ([id number]), assignment editor BIRGIT GILLIAM ([id number]) on 07/08/2022 10:41:29 AM Referred By: RODDY Confirmed By:PHU CARDOSO MD
--- NOTE | 2022-07-04 09:20 | EX.ED.DYSGE1 ---
HPI History of Present Illness Chief Complaint: Abd Pain Narrative Narrative: 61-year-old male with a history of pancreatitis presenting with epigastric pain. He states it is different this time however and is more in the left upper quadrant and into his chest. He feels that he is being squeezed. He states that this pain has been ongoing for the last 2 days. Patient denies cardiac history. Patient has had nausea but has not been vomiting. The last he was able to get down was a banana yesterday as far as food. PFSH PFSH Medical History Anxiety Hx of pancreatitis Pancreatitis Home Medications atorvastatin 10 mg tablet 10 mg PO DAILY 12/17/21 [History Last Taken 12/17/21] hydrocodone-acetaminophen 5-325mg 5mg-325mg 1 tab PO Q6H PRN Pain 12/17/21 [History Last Taken 12/16/21 23:30] [id number] 12,000-38,000-60,000 unit capsule,delayed rel (Creon) 3 cap PO TIDCM 12/17/21 [History Last Taken 12/17/21] omeprazole 40 mg capsule,delayed release 40 mg PO DAILY 12/17/21 [History Last Taken 12/17/21] sertraline 50 mg tablet 50 mg PO DAILY 12/17/21 [History Last Taken 12/17/21] lorazepam 0.5 mg tablet 0.5 mg PO BID PRN Anxiety 12/18/21 [History Last Taken Unknown] hydrocodone-acetaminophen 5-325mg 5mg-325mg 1 tab PO Q6H PRN pain 3 days #12 tabs 05/31/22 [Rx Last Taken Unknown] Allergy/AdvReac Type Severity Reaction Status Date / Time amoxicillin [From Augmentin] Allergy Swelling Verified 05/23/22 14:40 clavulanic acid Allergy Swelling Verified 05/23/22 14:40 [From Augmentin] Penicillins Allergy PT UNSURE Verified 05/23/22 14:40 OF REACTION hydromorphone [From Dilaudid] AdvReac Other Verified 05/23/22 14:40 Family History Father Myocardial infarction Surgical History Hx of cholecystectomy S/P appendectomy Social History Smoking Status: Former smoker EXAM Physical Exam Const Vital Signs: 07/04/22 09:10 07/04/22 09:33 07/04/22 10:04 Temperature 98.2 F Temperature Source Temporal Pulse Rate 87 63 Respiratory Rate 14 25 H Blood Pressure 163/119 H 155/96 H Blood Pressure Mean 133 115 Pulse Ox 93 100 Oxygen Delivery Method Room Air Room Air Room Air 07/04/22 11:21 07/04/22 12:56 07/04/22 13:07 Temperature Temperature Source Pulse Rate 69 54 L 58 L Respiratory Rate 20 H 14 18 Blood Pressure 172/106 H 126/91 H Blood Pressure Mean 128 102 Pulse Ox 96 98 Oxygen Delivery Method Room Air Room Air 07/04/22 15:20 Temperature Temperature Source Pulse Rate 63 Respiratory Rate 16 Blood Pressure 132/98 H Blood Pressure Mean 109 Pulse Ox 97 Oxygen Delivery Method Room Air MDM MDM MDM Narrative Medical decision making narrative: Patient presented with abdominal pain today which was more than he usually experiences with his pancreatitis. He does express that is in the left side of his chest and has had this pain for 2 days. I obtained an EKG because of the location of the pain and this is normal sinus rhythm with a ventricular rate of 62 bpm without sign of ischemic change or dysrhythmia. His chest x-ray showed no acute cardiopulmonary process on my interpretation radiologist agree. High-sensitivity troponin was 5 after few days of pain so I do not believe this is cardiac. Because of his elevated blood pressure and his pain above and below the diaphragm and his history of aortic aneurysm. I did attempt to get a CTA of the chest abdomen pelvis however when taken to CT they were unable to inject contrast and it was reported to me that every time they try to inject the contrast his veins would look like they were going to blow. They would stop the contrast and were able to pull back and get the blood draw extremities. They tried 3 different IV sites and none were successful. I did obtain a CT of the chest abdomen pelvis without contrast which does not show any obvious acute aortic findings. It does identify a?dilated pancreatic duct, and diffuse enlargement of the pancreas with the prominence of the head and uncinate process. With a recommend a follow-up ultrasound. Blood work was obtained and his CBC is within normal limits. Renal function and electrolytes are normal. His LFTs are normal. Lipase is elevated at 1493 however after getting morphine he has been pain-free. Since I was unable to obtain a CTA to obtain a D-dimer which is reassuring as this is negative. I did obtain abdominal ultrasound which shows a heterogeneous diffuse enlargement of the pancreas with a 1.7 cm x 1.47 x 1.1 cm cyst in the body of the pancreas and limited visualization of the head of the pancreas due to overlying bowel gas. I discussed the findings with Becky Brian who spoke with Dr. Alberts. Dr. Alberts states that he was offered surgical intervention at and declined this. The patient told me that Dr. Magdaleno told him that since he does not have cancer he did not need to give him a procedure for his pancreas. Dr. Alberts stated that it did not appear that he needed any hospitalization or procedures done currently since he is pain-free. He recommended outpatient follow-up with either he or Dr. Magdaleno. Patient is amenable to this. Return precautions discussed. Impression: 1. Acute on chronic pancreatitis 2. Chest pain noncardiac 3. Pancreatic cyst 4. Pancreatic enlargement Lab Data Attestation: I reviewed the patient's lab results. Labs: Laboratory Results - last 24 hr 07/04/22 07/04/22 07/04/22 09:30 09:30 09:30 WBC 7.2 RBC 5.46 Hgb 16.1 Hct 47.7 MCV 87.4 MCH 29.5 MCHC 33.8 RDW Std Deviation 41.7 RDW Coeff of Ghanshyam 13.1 Plt Count 212 MPV 10.2 Immature Gran % (Auto) 0.300 Neut % (Auto) 69.2 Lymph % (Auto) 20.4 [place] % (Auto) 7.3 Eos % (Auto) 2.4 Baso % (Auto) 0.4 Absolute Neuts (auto) 5.0 Absolute Lymphs (auto) 1.46 Nucleated RBC % 0 D-Dimer Quant (PE/DVT) 0.34 Sodium 140 Potassium 3.8 Chloride 104 Carbon Dioxide 28.0 Anion Gap 8 BUN 18 Creatinine 1.15 Estim Creat Clear Calc 70.03 Est GFR (MDRD) Af Amer 83 Est GFR (MDRD) Non-Af 69 BUN/Creatinine Ratio 15.7 Glucose 123 H Calcium 9.8 Total Bilirubin Direct Bilirubin AST ALT Alkaline Phosphatase Troponin I High Sens 5 Total Protein Albumin Globulin Lipase 07/04/22 07/04/22 07/04/22 09:30 09:30 12:05 WBC RBC Hgb Hct MCV MCH MCHC RDW Std Deviation RDW Coeff of Ghanshyam Plt Count MPV Immature Gran % (Auto) Neut % (Auto) Lymph % (Auto) [place] % (Auto) Eos % (Auto) Baso % (Auto) Absolute Neuts (auto) Absolute Lymphs (auto) Nucleated RBC % D-Dimer Quant (PE/DVT) Sodium Potassium Chloride Carbon Dioxide Anion Gap BUN Creatinine Estim Creat Clear Calc Est GFR (MDRD) Af Amer Est GFR (MDRD) Non-Af BUN/Creatinine Ratio Glucose Calcium Total Bilirubin 0.80 Direct Bilirubin 0.16 AST 15 ALT 28 Alkaline Phosphatase 76 Troponin I High Sens 6 Total Protein 8.3 H Albumin 4.3 Globulin 4.0 Lipase 1493 H Radiography Diagnostic Testing: Clinical Impression(s) from Imaging Studies Chest/Abdomen/Pelvis CT 07/04/22 09:19 IMPRESSION: Hyperinflation. Scarring at the lung apices. Status post cholecystectomy with central intrahepatic biliary ductal dilatation. Dilated pancreatic duct. Diffuse enlargement of the pancreas with the prominence of the head and uncinate process. Correlation with ultrasound is recommended for further evaluation. Electronically Signed: Tyrone Melvin MD at 11:55 EDT , Chest X-Ray 07/04/22 11:10 IMPRESSION: Hyperinflation. The lungs are clear. Electronically Signed: Tyrone Melvin MD at 11:18 EDT , Abdomen Ultrasound 07/04/22 12:50 IMPRESSION: Dilated intrahepatic biliary ducts. Heterogeneous diffuse enlargement of the pancreas with a 1.7 cm x 1.47 x 1.1 cm cyst in the body of the pancreas. Limited visualization of the head of the pancreas due to overlying bowel gas. On a prior MRI of the gallbladder, there was an ill-defined hypointense mass in the head of the pancreas. Electronically Signed: Tyrone Melvin MD at 14:28 EDT , Discharge Plan Triage Chief Complaint: Abd Pain ED Provider: Addy Ovalle Dx/Rx/DC Orders Prescriptions: No Action hydrocodone-acetaminophen 5-325 mg tablet 1 tab PO Q6H PRN (Reason: pain) 3 Days Qty: 12 0RF atorvastatin 10 mg tablet 10 mg PO DAILY Label Comments: TAKE 1 TABLET BY MOUTH DAILY omeprazole 40 mg capsule,delayed release(DR/EC) 40 mg PO DAILY Label Comments: TAKE 1 CAPSULE Oral EVERY Day sertraline 50 mg tablet 50 mg PO DAILY Label Comments: TAKE 1 TABLET BY MOUTH DAILY Creon 12,000-38,000 -60,000 unit capsule,delayed release(DR/EC) 3 cap PO TIDCM Label Comments: TAKE 6 CAPSULES BY MOUTH 4 TIMES A DAY WITH MEALS hydrocodone-acetaminophen 5-325 mg tablet 1 tab PO Q6H PRN (Reason: Pain) Label Comments: TAKE 1 TABLET Oral EVERY 6 HOURS for 7 (SEVEN) day(s) NEEDED for pain lorazepam 0.5 mg Tablet 0.5 mg PO BID PRN (Reason: Anxiety) Primary Care Provider: Ziggy Smith Referrals: Ziggy Smith MD [Primary Care Provider] -
[2022-07-04 09:33] VITALS: BP 155/96; PULSE 63; RESP 25; O2SAT 100
[2022-07-04 09:44] LABS: Absolute Lymphocyte Count 1.46 X10^3/uL (0.83-4.51); Basophil# 0.03 X10^3/uL; Basophil% 0.4 % (0-1); Eosinophil# 0.17 X10^3/uL; Eosinophils% 2.4 % (0-5); Hematocrit 47.7 % (40-54); Hemoglobin 16.1 g/dL (13.0-16.5); Lymphocyte # 1.46 X10^3/ul (0.83-4.51); Lymphocyte % 20.4 % (19-41); Mean Corp Hgb Conc 33.8 g/dL (32-36); Mean Corpuscular Hgb 29.5 pg (27.0-32.0); Mean Corpuscular Volume 87.4 fL (80-94); Mean Platelet Vol. 10.2 fl (6.2-12.0); Monocyte# 0.52 X10^3/uL; Monocyte% 7.3 % (0-10); NRBC Flagged by Analyzer 0 % (0-5); Neutrophil # 4.95 X10^3/uL (2.7-7.7); Neutrophil % 69.2 % (47-70); Platelet Count 212 K/mm3 (150-450); RBC Distribution Width CV 13.1 % (11.6-14.6); RBC Distribution Width SD 41.7 fl (35.1-43.9); Red Blood Count 5.46 M/mm3 (4.6-6.2); White Blood Count 7.2 K/mm3 (4.4-11.0)
[2022-07-04 09:56] LABS: D-Dimer Quantitative (DVT/PE) 0.34 FEU/ug/m (0.27-0.49)
[2022-07-04] MEDS: 0.9% Normal Saline 1,000 ML 1000 ML IV (10:00)
[2022-07-04] MEDS: Ondansetron 4 MG/2 ML Vial IV (10:01)
[2022-07-04 10:02] LABS: Anion Gap 8 (5-15); BUN 18 mg/dL (7-18); BUN/Creat Ratio 15.7 RATIO (10-20); Calcium,Total 9.8 mg/dL (8.5-10.1); Chloride 104 mmol/L (98-107); Creatinine, Serum 1.15 mg/dL (0.70-1.30); EST Glomerular Filtration Rate 69 mL/min (>60); Est Glom Filt Rate - Afr Amer 83 mL/min (>60); Estimated Creatinine Clearance 70.03 ml/min; Glucose 123 mg/dL (74-106); Potassium 3.8 mmol/L (3.5-5.1); Sodium Level 140 mmol/L (136-145); Troponin-I HS (w/2H Reflex) 5 pg/mL (3.0-78.0)
[2022-07-04] MEDS: Morphine 4 MG/ML Syringe 6 MG IV (10:03)
[2022-07-04] MEDS: DiphenhydrAMINE 50 MG/ML Syringe 25 MG IV (10:26)
[2022-07-04 10:44] LABS: AST(SGOT) 15 U/L (15-37); Alanine Aminotransfer ALT/SGPT 28 U/L (16-61); Albumin, Serum 4.3 g/dL (3.2-5.0); Alkaline Phosphatase 76 U/L (45-117); Bilirubin, Direct 0.16 mg/dL (0.00-0.30); Protein, Total 8.3 g/dL (6.4-8.2)
[2022-07-04 10:47] LABS: Lipase 1493 U/L (73-393)
--- NOTE | 2022-07-04 11:10 | RAD_ITS ---
STUDY: X-RAY CHEST REASON FOR EXAM: Male, 61 years old. Chest pain. TECHNIQUE: Single AP portable view of the chest. COMPARISON: Comparison is made with prior study dated 12/17/2021. FINDINGS: EKG electrodes are seen. Hyperinflation. The lungs are clear. There is no demonstrated pleural abnormality. Normal size heart. Normal mediastinum and radha. Normal visualized pulmonary arteries. There is atherosclerotic tortuosity of the aortic arch and descending thoracic aorta. Normal visualized thoracic spine. Normal visualized ribs, clavicles, and shoulders. There is no demonstrated abnormality of the visualized soft tissue structures of the upper abdomen. RAD/Chest 1 View (Portable) IMPRESSION: Hyperinflation. The lungs are clear. Electronically Signed: Tyrone Melvin MD at 11:18 EDT ,
[2022-07-04 11:21] VITALS: BP 172/106; PULSE 69; RESP 20
[2022-07-04 11:38] LABS: Reflex Troponin-HS? (from REC) Y
[2022-07-04 12:31] LABS: Troponin-I HS 6 pg/mL (3.0-78.0)
--- NOTE | 2022-07-04 12:50 | US_ITS ---
STUDY: ABDOMINAL ULTRASOUND - RIGHT UPPER QUADRANT REASON FOR VISIT: Male, [address] - SEE PREV CT AND MRCP TECHNIQUE: Ultrasound evaluation of the right upper quadrant was performed with real-time and static hilario-scale imaging. TECHNICAL QUALITY: Adequate. COMPARISON: Comparison is made with prior CT scan the abdomen done earlier today and prior MRI dated 12/19/2021. FINDINGS: Liver: The liver measures 13.5 cm. There is increased echogenicity consistent with fatty infiltration. The bile ducts are dilated. There is hepatic color flow. The direction of portal flow is hepatopetal. There is no demonstrated mass lesion. Gallbladder: The patient is status post cholecystectomy. Common Bile Duct (C.B.D.): The common bile duct measures 14 mm. Pancreas: Diffuse heterogeneous enlargement of the pancreas. There is a 1.7 cm x 1.47 x 1.1 cm cyst in the body of the pancreas. Dilatation of the pancreatic duct. Limited visualization of the head portion of the pancreas due to overlying bowel Right Kidney: Normal size of the right kidney. The right kidney measures 10.5 cm x 4.8cm x 4.8 cm. Normal renal cortex. The right cortex measures 1.3 cm. There is no demonstrated renal mass or cyst. There is no right hydronephrosis. US/Abdomen Limited IMPRESSION: Dilated intrahepatic biliary ducts. Heterogeneous diffuse enlargement of the pancreas with a 1.7 cm x 1.47 x 1.1 cm cyst in the body of the pancreas. Limited visualization of the head of the pancreas due to overlying bowel gas. On a prior MRI of the gallbladder, there was an ill-defined hypointense mass in the head of the pancreas. Electronically Signed: Tyrone Melvin MD at 14:28 EDT ,
[2022-07-04 12:56] VITALS: PULSE 54; RESP 14; O2SAT 96
[2022-07-04 13:07] VITALS: BP 126/91; PULSE 58; RESP 18; O2SAT 98
[2022-07-04 15:20] VITALS: BP 132/98; PULSE 63; RESP 16; O2SAT 97
== END 2022-07-04 15:51 | disposition home or self-care (01) ==
PROVIDERS: Emergency Provider Student in an Organized Health Care Education/Training Program; PCP Family Medicine; Visit Provider Student in an Organized Health Care Education/Training Program
DX: R10.13 Epigastric pain (principal); K86.1 Other chronic pancreatitis; K85.91 Acute pancreatitis with uninfected necrosis, unspecified; R03.0 Elevated blood-pressure reading, without diagnosis of hypertension; K86.2 Cyst of pancreas; R07.89 Other chest pain; R74.8 Abnormal levels of other serum enzymes; F41.9 Anxiety disorder, unspecified; Z87.891 Personal history of nicotine dependence; Z79.899 Other long term (current) drug therapy
CPT/HCPCS: 71045; 71250; 74176; 76705; 80048; 80076; 83690; 84484; 85025; 85379; 93005; 96361; 96374; 96375; 99285; J2405

== ENCOUNTER 2022-07-09 11:15 | Emergency (ER) | payer MEDICAID, SELFPAY ==
[2022-07-09 11:16] VITALS: BP 169/120; PULSE 56; RESP 14; TEMP 35.7; O2SAT 100; BMI 21.4
--- NOTE | 2022-07-09 11:29 | EDS_ITS ---
HPI History of Present Illness Chief Complaint: Abd Pain Narrative Narrative: Patient presents with epigastric pain. This feels like his pancreatitis. He has a history of chronic pancreatitis. He is being seen by GI. He was seen recently last week and his pain continues. No fevers or chills. PFSH PFSH Medical History Anxiety Hx of pancreatitis Pancreatitis Home Medications atorvastatin 10 mg tablet 10 mg PO DAILY 12/17/21 [History Last Taken 12/17/21] hydrocodone-acetaminophen 5-325mg 5mg-325mg 1 tab PO Q6H PRN Pain 12/17/21 [History Last Taken 12/16/21 23:30] [id number] 12,000-38,000-60,000 unit capsule,delayed rel (Creon) 3 cap PO TIDCM 12/17/21 [History Last Taken 12/17/21] omeprazole 40 mg capsule,delayed release 40 mg PO DAILY 12/17/21 [History Last Taken 12/17/21] sertraline 50 mg tablet 50 mg PO DAILY 12/17/21 [History Last Taken 12/17/21] lorazepam 0.5 mg tablet 0.5 mg PO BID PRN Anxiety 12/18/21 [History Last Taken Unknown] hydrocodone-acetaminophen 5-325mg 5mg-325mg 1 tab PO Q6H PRN pain 3 days #12 tabs 05/31/22 [Rx Last Taken Unknown] hydrocodone-acetaminophen 5-325mg 5mg-325mg 1 tab PO Q6H PRN pain 3 days #10 tabs 07/09/22 [Rx Last Taken Unknown] Allergy/AdvReac Type Severity Reaction Status Date / Time amoxicillin [From Augmentin] Allergy Swelling Verified 05/23/22 14:40 clavulanic acid Allergy Swelling Verified 05/23/22 14:40 [From Augmentin] Penicillins Allergy PT UNSURE Verified 05/23/22 14:40 OF REACTION hydromorphone [From Dilaudid] AdvReac Other Verified 05/23/22 14:40 Family History Father Myocardial infarction Surgical History Hx of cholecystectomy S/P appendectomy Social History Smoking Status: Former smoker ROS ROS ED ROS Narrative Past medical history: Reviewed Medications: Reviewed Social history: Noncontributory Review of systems: All systems negative except as indicated General: No fever Eyes: No visual changes ENT: No upper airway congestion, normal voice Neck: No neck pain Cardiovascular: No chest pain Respiratory: No shortness of breath or cough Gastrointestinal: Abdominal pain as in HPI Genitourinary: No dysuria Musculoskeletal: Denies myalgias no difficulty with ambulation Skin: No rash Neurological: No memory loss, confusion or any focal weakness Psych: No recent behavioral changes Hematologic: No easy bleeding or easy bruising EXAM Physical Exam Narrative Exam Narrative: Physical exam General: Patient appears relatively comfortable in the bed Head: Normocephalic, Atraumatic Eyes: Conjunctiva not pale ENT: Moist mucous membranes Neck: Supple, Nontender, No lymphadenopathy Cardiovascular: Regular rate, Regular rhythm Respiratory: No distress, CTA bilaterally Abdomen: Soft, there is epigastric tenderness without any guarding or rebound Back: Nontender, Normal Inspection. Negative for: CVA tenderness Extremities: Nontender, No edema Skin: Normal color, No rash Neurological: Alert, Normal Strength, Normal Sensation Psychological: Normal affect Const Vital Signs: 07/09/22 11:16 07/09/22 12:17 Temperature 96.3 F L 97.8 F Temperature Source Temporal Oral Pulse Rate 56 L 60 Respiratory Rate 14 16 Blood Pressure 169/120 H 143/100 H Blood Pressure Mean 136 114 Pulse Ox 100 99 Oxygen Delivery Method Room Air Room Air [facility] Lab Data Labs: Laboratory Results - last 24 hr 07/09/22 07/09/22 11:30 11:30 WBC 8.2 RBC 5.53 Hgb 16.3 Hct 48.4 MCV 87.5 MCH 29.5 MCHC 33.7 RDW Std Deviation 40.8 RDW Coeff of Ghanshyam 12.7 Plt Count 209 MPV 10.0 Immature Gran % (Auto) 0.400 Neut % (Auto) 74.0 H Lymph % (Auto) 15.8 L [place] % (Auto) 8.2 Eos % (Auto) 1.1 Baso % (Auto) 0.5 Absolute Neuts (auto) 6.1 Absolute Lymphs (auto) 1.29 Nucleated RBC % 0 Sodium 141 Potassium 4.0 Chloride 105 Carbon Dioxide 26.0 Anion Gap 10 BUN 22 H Creatinine 1.20 Estim Creat Clear Calc 63.91 Est GFR (MDRD) Af Amer 79 Est GFR (MDRD) Non-Af 65 BUN/Creatinine Ratio 18.3 Glucose 104 Calcium 9.6 Total Bilirubin 1.00 AST 14 L ALT 24 Alkaline Phosphatase 72 Total Protein 8.4 H Albumin 4.3 Globulin 4.1 Albumin/Globulin Ratio 1.0 Lipase 716 H Treatment and Re-Evaluation Narrative: Patient's work-up is unremarkable, his lipase is now only 716 which is much improved from when he was here. He achieved analgesia with 1 dose of IV morphine and IV fluids and antiemetics. He feels now improved. I will discharge him in stable condition. He is told to only eat clear liquids for the next few days. He tells me he has not drank alcohol in over 2 years. Discharge Plan Triage Chief Complaint: Abd Pain ED Provider: El Pedraza Dx/Rx/DC Orders Clinical Impression: Pancreatitis, Abdominal pain Instructions: Abdominal Pain, ED Pancreatitis Prescriptions: New hydrocodone-acetaminophen 5-325 mg tablet 1 tab PO Q6H PRN (Reason: pain) 3 Days Qty: 10 0RF No Action hydrocodone-acetaminophen 5-325 mg tablet 1 tab PO Q6H PRN (Reason: pain) 3 Days Qty: 12 0RF atorvastatin 10 mg tablet 10 mg PO DAILY Label Comments: TAKE 1 TABLET BY MOUTH DAILY omeprazole 40 mg capsule,delayed release(DR/EC) 40 mg PO DAILY Label Comments: TAKE 1 CAPSULE Oral EVERY Day sertraline 50 mg tablet 50 mg PO DAILY Label Comments: TAKE 1 TABLET BY MOUTH DAILY Creon 12,000-38,000 -60,000 unit capsule,delayed release(DR/EC) 3 cap PO TIDCM Label Comments: TAKE 6 CAPSULES BY MOUTH 4 TIMES A DAY WITH MEALS hydrocodone-acetaminophen 5-325 mg tablet 1 tab PO Q6H PRN (Reason: Pain) Label Comments: TAKE 1 TABLET Oral EVERY 6 HOURS for 7 (SEVEN) day(s) NEEDED for pain lorazepam 0.5 mg Tablet 0.5 mg PO BID PRN (Reason: Anxiety) Primary Care Provider: Bobby Fountain Referrals: Ziggy Smith MD [Non-Staff] - 3-5 Days Disposition Disposition: Home, Self Care
[2022-07-09] MEDS: 0.9% Normal Saline 1,000 ML 2000 ML IV (11:34)
[2022-07-09] MEDS: Ondansetron 4 MG/2 ML Vial IV (11:35)
[2022-07-09] MEDS: Morphine 4 MG/ML Syringe IV (11:36)
[2022-07-09 11:44] LABS: Absolute Lymphocyte Count 1.29 X10^3/uL (0.83-4.51); Absolute Neutrophil Count 6.1 X10^3/uL (2.0-7.7); Basophil# 0.04 X10^3/uL; Basophil% 0.5 % (0-1); Eosinophil# 0.09 X10^3/uL; Eosinophils% 1.1 % (0-5); Hematocrit 48.4 % (40-54); Hemoglobin 16.3 g/dL (13.0-16.5); Lymphocyte # 1.29 X10^3/ul (0.83-4.51); Lymphocyte % 15.8 % (19-41); Mean Corp Hgb Conc 33.7 g/dL (32-36); Mean Corpuscular Hgb 29.5 pg (27.0-32.0); Mean Corpuscular Volume 87.5 fL (80-94); Monocyte# 0.67 X10^3/uL; Monocyte% 8.2 % (0-10); NRBC Flagged by Analyzer 0 % (0-5); Neutrophil # 6.06 X10^3/uL (2.7-7.7); Platelet Count 209 K/mm3 (150-450); RBC Distribution Width CV 12.7 % (11.6-14.6); RBC Distribution Width SD 40.8 fl (35.1-43.9); Red Blood Count 5.53 M/mm3 (4.6-6.2); White Blood Count 8.2 K/mm3 (4.4-11.0)
[2022-07-09 12:03] LABS: AST(SGOT) 14 U/L (15-37); Alanine Aminotransfer ALT/SGPT 24 U/L (16-61); Albumin, Serum 4.3 g/dL (3.2-5.0); Alkaline Phosphatase 72 U/L (45-117); Anion Gap 10 (5-15); BUN 22 mg/dL (7-18); BUN/Creat Ratio 18.3 RATIO (10-20); Calcium,Total 9.6 mg/dL (8.5-10.1); Chloride 105 mmol/L (98-107); EST Glomerular Filtration Rate 65 mL/min (>60); Est Glom Filt Rate - Afr Amer 79 mL/min (>60); Estimated Creatinine Clearance 63.91 ml/min; Globulin 4.1 g/dL (2.2-4.2); Glucose 104 mg/dL (74-106); Lipase 716 U/L (73-393); Protein, Total 8.4 g/dL (6.4-8.2); Sodium Level 141 mmol/L (136-145)
[2022-07-09 12:17] VITALS: BP 143/100; PULSE 60; RESP 16; TEMP 36.6; O2SAT 99
[2022-07-09 13:16] VITALS: BP 163/92; PULSE 54; RESP 16; O2SAT 100
== END 2022-07-09 13:19 | disposition home or self-care (01) ==
PROVIDERS: Emergency Provider Emergency Medicine; Visit Provider Emergency Medicine
DX: K85.90 Acute pancreatitis without necrosis or infection, unspecified (principal); R10.13 Epigastric pain; F41.9 Anxiety disorder, unspecified; Z79.899 Other long term (current) drug therapy; Z87.891 Personal history of nicotine dependence
CPT/HCPCS: 80053; 83690; 85025; 96361; 96374; 96375; 99283; J7030; J2405

== ENCOUNTER 2022-11-05 20:51 | Emergency (ER) | payer MEDICAID, SELFPAY ==
[2022-11-05 20:51] VITALS: BP 179/110; PULSE 67; RESP 15; TEMP 36.3; O2SAT 100; BMI 24.3
--- NOTE | 2022-11-05 22:23 | CT_ITS ---
STUDY: CT BRAIN WITHOUT CONTRAST REASON FOR EXAM: Male, 61 years old. headache RADIATION DOSAGE (If Supplied By Facility): CTDIvol = ( 44.99 ) mGy, DLP = ( 880.47 ) mGycm TECHNIQUE: Transaxial CT imaging of the brain was performed without administration of intravenous contrast material. Individualized dose optimization techniques were used for this CT. COMPARISON: CT brain report only July 23, 2011 FINDINGS: Normal soft tissue structures. Normal calvarium. Normal size ventricles and extra-axial spaces for the patient''s age. Normal white matter tracts of the cerebral hemispheres. Normal basal ganglia and thalami. Normal brainstem. Normal cerebellum. There is no intracranial hemorrhage. There are no findings of an acute ischemic infarction. polyp right maxillary sinus. CT/Brain/Head without Contrast IMPRESSION: No acute disease. Right maxillary polyp. Electronically Signed: Cleveland Max MD at 23:22 EST ,
[2022-11-05] MEDS: hydrALAZINE 20 MG/ML Vial 10 MG IV (22:38)
[2022-11-05 22:43] VITALS: BP 190/120
[2022-11-05 22:45] LABS: Absolute Lymphocyte Count 2.03 X10^3/uL (0.83-4.51); Absolute Neutrophil Count 4.1 X10^3/uL (2.0-7.7); Basophil# 0.04 X10^3/uL; Basophil% 0.6 % (0-1); Eosinophil# 0.16 X10^3/uL; Eosinophils% 2.3 % (0-5); Hematocrit 43.8 % (40-54); Hemoglobin 15.1 g/dL (13.0-16.5); Lymphocyte # 2.03 X10^3/ul (0.83-4.51); Lymphocyte % 29.3 % (19-41); Mean Corp Hgb Conc 34.5 g/dL (32-36); Mean Corpuscular Volume 87.1 fL (80-94); Mean Platelet Vol. 9.5 fl (6.2-12.0); Monocyte% 8.6 % (0-10); NRBC Flagged by Analyzer 0 % (0-5); Neutrophil # 4.09 X10^3/uL (2.7-7.7); Neutrophil % 58.9 % (47-70); Platelet Count 204 K/mm3 (150-450); RBC Distribution Width CV 13.2 % (11.6-14.6); RBC Distribution Width SD 42.4 fl (35.1-43.9); Red Blood Count 5.03 M/mm3 (4.6-6.2); White Blood Count 6.9 K/mm3 (4.4-11.0)
[2022-11-05] MEDS: cloNIDine HCl 0.2 MG Tablet PO (22:50)
--- NOTE | 2022-11-05 22:55 | EDS_ITS ---
HPI History of Present Illness Chief Complaint: Hypertension Narrative Narrative: Patient is a 61-year-old male with past medical history of chronic pancreatitis. He states that he has had mild congestion and headache and was recently diagnosed with a sinus infection. He reports that he was started on doxycycline and was taking cold medication. He states he checked his blood pressure at his doctor's visit this morning and it was elevated. He states he then went to a pharmacy later this evening and checked it once again and it was even higher and with this he comes in for evaluation. Patient denies any chest pain or shortness of breath but does report mild headache. He states other than taking the cold medication that there is been no excessive stimulants or illicit drug use [facility] Medical History Anxiety Hx of pancreatitis Pancreatitis Home Medications [id number] 12,000-38,000-60,000 unit capsule,delayed rel (Creon) 3 cap PO TIDCM 12/17/21 [History Last Taken 12/17/21] omeprazole 40 mg capsule,delayed release 40 mg PO DAILY 12/17/21 [History Last Taken 12/17/21] lorazepam 0.5 mg tablet 0.5 mg PO BID PRN Anxiety 12/18/21 [History Last Taken Unknown] doxycycline hyclate 100 mg capsule 100 mg PO BID 11/05/22 [History Last Taken Unknown] fluticasone propionate 50 mcg/actuation nasal spray,suspension (Flonase Allergy Relief) 1 spray intranasal BID 11/05/22 [History Last Taken Unknown] guaifenesin 600 mg tablet,extended release 600 mg PO BID PRN Congestion 11/05/22 [History Last Taken Unknown] lisinopril 20 mg tablet 20 mg PO DAILY 30 days #30 tabs 11/06/22 [Rx Last Taken Unknown] Allergy/AdvReac Type Severity Reaction Status Date / Time amoxicillin [From Augmentin] Allergy Swelling Verified 11/05/22 20:56 clavulanic acid Allergy Swelling Verified 11/05/22 20:56 [From Augmentin] Penicillins Allergy PT UNSURE Verified 11/05/22 20:56 OF REACTION hydromorphone [From Dilaudid] AdvReac Other Verified 11/05/22 20:56 Family History (Reviewed 11/05/22 @ 14:52 by Becky Brian [employer] RE[employer]IL[employer] COUNSELOR, V[employer] REHABILITATION COUNSELOR-C) Father Myocardial infarction Surgical History Hx of cholecystectomy S/P appendectomy Social History (Reviewed 11/05/22 @ 14:52 by Becky Brian [employer] REHABILITATION COUNSELOR, VET[employer]ANS REHABILITATION COUNSELOR-C) Smoking Status: Former smoker ROS ROS ED Constitutional Constitutional ED: Denies chills or fever(s) Eyes Eyes: Denies change in vision ENT ENT ED: Reports rhinorrhea; Denies sore throat Cardiovascular Cardiovascular: Denies chest pain Respiratory/Chest Respiratory/Chest: Denies cough or dyspnea Gastrointestinal Gastrointestinal: Denies abdominal pain, diarrhea, nausea or vomiting Genitourinary Genitourinary ED: Denies dysuria Musculoskeletal Musculoskeletal: Denies myalgias Integumentary Denies rash Neurologic Neurologic: Reports headache(s) Hematologic/Lymphatic Hematologic/Lymphatic: Denies easy bleeding or easy bruising EXAM Physical Exam Const Vital Signs: 11/05/22 20:51 11/05/22 21:41 11/05/22 22:43 Temperature 97.4 F L Temperature Source Temporal Pulse Rate 67 Respiratory Rate 15 Respiratory Effort Normal Non-Labored Respiratory Pattern Normal Blood Pressure 179/110 H 190/120 H Blood Pressure Mean 133 143 Pulse Ox 100 Oxygen Delivery Method Room Air 11/05/22 23:24 Temperature Temperature Source Pulse Rate Respiratory Rate Respiratory Effort Respiratory Pattern Blood Pressure 168/97 H Blood Pressure Mean 120 Pulse Ox Oxygen Delivery Method Positive well nourished and well developed General Appearance ED: well developed HEENT Reports moist mucous membranes Eyes PERRL and EOMs intact bilaterally Neck supple Neck Narrative: No carotid bruit noted Resp normal respiratory effort and clear to auscultation bilaterally Cardio regular rate and regular rhythm Rate: other Other Details: Radial pulses are plus 2 out of 4 bilaterally are equal and symmetric GI normal to inspection, nondistended, normoactive bowel sounds, non-tender, non- distended and no masses GI Narrative: No voluntary guarding or rigidity no pulsatile mass Auscultation: normoactive bowel sounds Palpation: soft Extremity normal to inspection Extremity Narrative: No asymmetric edema no pitting edema negative Homans' sign bilaterally Neuro oriented x3, CN's II-XII intact bilaterally and no sensory deficits noted Neuro Narrative: Cranial nerves II through XII are grossly intact there are no focal neurologic deficits. No pronator drift no dysmetria no truncal ataxia. NIH stroke scale score of 0 Sensorium / Orientation: alert Psych mental status grossly normal Skin no rashes or lesions noted MDM MDM MDM Narrative Medical decision making narrative: Patient arrived to the ER hypertensive but otherwise with no physical exam findings to suggest endorgan damage. However because this is a new finding for the patient I did elect to perform a basic work-up and a head CT was added as he has had recurrent headache. Lab work displayed no signs of acute kidney injury or heart damage and head CT revealed no bleed or masses but did show a right maxillary polyp consistent with his recurrent congestion and headache. Patient was given hydralazine and clonidine and had mild improvement of his blood pressure. On reevaluation his neuro exam remains normal and I discussed with patient staying in the hospital for another 1 to 2 hours to receive further medication to ensure his blood pressure is dropping. Patient states that he feels fine at this time knowing that his work-up is negative and would rather be discharged home and will follow-up with his family doctor in approximately 1 week for repeat evaluation. Based on his persistent elevated readings I will start the patient on lisinopril for home. Lab Data Attestation: I reviewed the patient's lab results. Labs: Laboratory Results - last 24 hr 11/05/22 11/05/22 22:37 22:37 WBC 6.9 RBC 5.03 Hgb 15.1 Hct 43.8 MCV 87.1 MCH 30.0 MCHC 34.5 RDW Std Deviation 42.4 RDW Coeff of Ghanshyam 13.2 Plt Count 204 MPV 9.5 Immature Gran % (Auto) 0.300 Neut % (Auto) 58.9 Lymph % (Auto) 29.3 Glynn % (Auto) 8.6 Eos % (Auto) 2.3 Baso % (Auto) 0.6 Absolute Neuts (auto) 4.1 Absolute Lymphs (auto) 2.03 Nucleated RBC % 0 Sodium 140 Potassium 3.7 Chloride 107 Carbon Dioxide 28.0 Anion Gap 5 BUN 15 Creatinine 1.08 Estim Creat Clear Calc 76.50 Est GFR (MDRD) Af Amer 89 Est GFR (MDRD) Non-Af 74 BUN/Creatinine Ratio 13.9 Glucose 113 H Calcium 9.0 Troponin I High Sens 5 Radiography Diagnostic Testing: Clinical Impression(s) from Imaging Studies Brain CT 11/05/22 22:23 IMPRESSION: No acute disease. Right maxillary polyp. Electronically Signed: Cleveland Max MD at 23:22 EST Reading Location ID and State: [facility] / [place] , Service support , Discharge Plan Triage Chief Complaint: Hypertension ED Provider: Yvon Fox Dx/Rx/DC Orders Clinical Impression: Accelerated hypertension, Nasal polyp, Chronic pancreatitis Instructions: Blood Pressure Check Steps, Understanding Nasal Polyps, ED Hypertension New Begin Treatment Prescriptions: New lisinopril 20 mg tablet 20 mg PO DAILY 30 Days Qty: 30 0RF No Action omeprazole 40 mg capsule,delayed release(DR/EC) 40 mg PO DAILY Label Comments: TAKE 1 CAPSULE Oral EVERY Day Creon 12,000-38,000 -60,000 unit capsule,delayed release(DR/EC) 3 cap PO TIDCM Label Comments: TAKE 6 CAPSULES BY MOUTH 4 TIMES A DAY WITH MEALS lorazepam 0.5 mg Tablet 0.5 mg PO BID PRN (Reason: Anxiety) doxycycline hyclate 100 mg Capsule 100 mg PO BID Mucus Relief ER 600 mg Tablet Extended Release 600 mg PO BID PRN (Reason: Congestion) fluticasone propionate [Flonase Allergy Relief] 50 mcg/actuation [place],Suspension 1 spray INTRANASAL BID Rx Instructions: administer into each nostril Primary Care Provider: Bobby Fountain Referrals: Bobby Fountain DO [Primary Care Provider] - Activity Restrictions/Additional Instructions: Please begin taking lisinopril once daily and continue to check your blood pressure once a day so that you have a journal to show your family doctor when you follow-up for evaluation next week. Also please talk your family doctor about a ENT referral based on your nasal polyp and return to the ER should you have any further concerns. Disposition Disposition: Home, Self Care
[2022-11-05 23:02] LABS: Anion Gap 5 (5-15); BUN 15 mg/dL (7-18); BUN/Creat Ratio 13.9 RATIO (10-20); Chloride 107 mmol/L (98-107); Creatinine, Serum 1.08 mg/dL (0.70-1.30); EST Glomerular Filtration Rate 74 mL/min (>60); Est Glom Filt Rate - Afr Amer 89 mL/min (>60); Glucose 113 mg/dL (74-106); Potassium 3.7 mmol/L (3.5-5.1); Sodium Level 140 mmol/L (136-145); Troponin-I HS 5 pg/mL (3.0-78.0)
[2022-11-05 23:24] VITALS: BP 168/97
[2022-11-06 00:12] VITALS: BP 167/95; PULSE 65; RESP 15; O2SAT 98
== END 2022-11-06 00:13 | disposition home or self-care (01) ==
PROVIDERS: Emergency Provider Emergency Medicine; Visit Provider Emergency Medicine
DX: K86.1 Other chronic pancreatitis (principal); J33.9 Nasal polyp, unspecified; I10 Essential (primary) hypertension; R51.9 Headache, unspecified; Z87.891 Personal history of nicotine dependence
CPT/HCPCS: 36415; 70450; 80048; 84484; 85025; 86301; 93005; 96374; 99285; A4216

== ENCOUNTER → 2022-11-05 | Outpatient (CLI) | payer MEDICAID, SELFPAY ==
[2022-11-09 14:50] LABS: Carbohydrate Ag 19-9 2261 9 U/mL (0-35)
== END | disposition home or self-care (01) ==
PROVIDERS: Referring Provider Nurse Practitioner Adult Health; Visit Provider Nurse Practitioner Adult Health
DX: K85.90 Acute pancreatitis without necrosis or infection, unspecified (principal)
CPT/HCPCS: 36415; 86301

== ENCOUNTER 2023-03-28 05:24 | Day surgery (SDC) | payer MEDICAID, SELFPAY ==
[2023-03-28] VITALS (7 sets, daily range): BP systolic 80–118; BP diastolic 64–91; PULSE 71–77; RESP 12–18; TEMP 36.2–36.7; O2SAT 96–100; BMI 23.6
--- NOTE | 2023-03-28 | COLBX_PTH ---
PATIENT: CHLOE TRIPATHI LOC: EN U#:[id number] AGE/SX: 62/M ROOM: RE03/28/[address]: Dr. Lorne Alberts DO : 1960 BED: DIS: 03/28/2023 SPEC #: [id number] RECD: 03/28/23 08:19 STATUS: NATHAN REAbilio #: [id number] PATY: 03/28/23 00:[address]: Lorne Alberts DEPT: SURGICAL PATHOLOGY RECD BY: Mason Hunter ENTERED: 03/28/23 09:02 SP TYPE: COLON BX LORENZA DR: Dr. Bobby Fountain DO Tissues: A - Transverse colon B - Sigmoid colon biopsy Procedures: Surgery Specimen Level IV HEADER OPERATION: Colonoscopy (MAC) with biopsy PRE-OP DIAGNOSIS: Pancreatitis, hypertension TISSUE SUBMITTED: A ? Transverse colon polyp biopsy, B ? Sigmoid polyp biopsy MICROSCOPIC DIAGNOSIS A. Transverse colon polyp, biopsy: Tubular adenoma. B. Sigmoid colon polyp, biopsy: Hyperplastic polyp. AM:gabe 03/31/2023 MICROSCOPIC DESCRIPTION Slides are reviewed. GROSS DESCRIPTION A - Received in fixative is one container labeled with the patient's name and designated transverse colon polyp biopsy. The specimen consists of one irregular fragment of light la soft tissue that measures 0.3 x 0.3 x 0.1 cm. The specimen is totally submitted in one cassette. B - Received in fixative is one container labeled with the patient's name and designated sigmoid polyp biopsy. The specimen consists of one irregular fragment of light la soft tissue that measures 0.3 x 0.3 x 0.1 cm. The specimen is totally submitted in one cassette. / SJ:gabe 03/28/2023 TC:5 CPT: 64398 x2
[2023-03-28] MEDS: Lactated Ringers 1,000 ML 15 ML IV (06:00)
--- NOTE | 2023-03-28 06:35 | HP.PCM_ITS ---
History and Physical Date of Admission: 03/28/23 VASILIY TRIPAHTI, is a 61 M who presents to the office today for f/u recurrent acute on chronic pancreatitis. It is 8 months since his last visit. No abdominal pain since 06/2022; he was seen twice in the ED that month. He continues to take Creon 3 pills with meals/snacks. No alcohol or cigarettes since 02/2019 when he first had pancreatitis. He previously was not interested in surgery eg partial pancreatectomy vs whipple. Dr Alberts considered referral for second opinion. Currently following CA 19-9. recommended follow with CT pancreas protocol. He has no GI complaints today. Denies nausea, vomiting, dysphagia, abd pain, diarrhea, constipation, melena, hematochezia. He has never had a colonoscopy. Reports a negative Cologuard a few yrs ago. Takes omeprazole. 05/31/22 lipase 2408, 07/04/22 lipase 1493, 07/09/22 lipase 716 05/31/22 amylase 268 05/31/22 CA 19-9 9 Vasiliy established with this clinic through hospitalization at [facility]. He presented to [facility] ED 12.17.21 with complaints of easy fatigue with normal activity and SOB. It was noted that his pancreatic enzymes were cyclically elevating with previous hospitalization for pancreatitis and he was hospitalized for monitoring. Gastroenterology was consulted 12.18.21. He has a history of at least 20 episodes of recurrent pancreatitis resulting in a pancreatic pseudocyst, pancreatic tail abscess was drained via EUS. There is a common bile duct stent placed for biliary stricture and this is thought to be associated with chronic pancreatitis. He followed with Dr. Harris as outpatient who prescribed him Creon. MRCP performed at [facility] showing possible pancreatic lesion in the head of the pancreas. ERCP performed 12.20.21. Vasiliy was discharged 12.21.21 MRCP 12.19.21 finding mildly dilated common hepatic duct and common bile duct. Pancreatic duct dilated in the body and tail up to 6mm. Ill defined mass in head of pancreas with associated dilation of main pancreatic duct. ERCP 12.20.21 finding single mild biliary stricture in lower third of the main bile duct; indeterminate. Entire main bile duct dilated; uncertain significance. Biliary sphincterotomy performed. Biliary tree swept finding sludge. Common bile duct successfully dilated. Cytology was negative for malignant cells. EUS performed 01.24.22 at . EGD without acute/chronic findings. Sonographic findings: CBD dilated measuring 9mm; no stones, sludge or stricture seen. Pancreatic parenchymal abnormalities throughout entire pancreas of hyperechoic strands and foci with lobularity; pancreatic ducted had dilated endosonographic appearance with tortuous appearance and hyperechoic valle in main pancreatic duct; pancreatic duct measures 5mm; round inflammatory mass-like region identified in pancreatic head, hypoechoic, heterogenous and lobulated measuring [id number] with biopsy/cytology performed. Pancreatic head biopsy without pathological finding. Cytology without malignant cells. 07/04/22 US/Abdomen Limited IMPRESSION: Dilated intrahepatic biliary ducts. Heterogeneous diffuse enlargement of the pancreas with a 1.7 cm x 1.47 x 1.1 cm cyst in the body of the pancreas.? Limited visualization of the head of the pancreas due to overlying bowel gas.? On a prior MRI of the gallbladder, there was an ill-defined hypointense mass in the head of the pancreas. ? 07/04/22 CT/CT Chest, Abd, Pelvis WO Cont IMPRESSION: Hyperinflation.? Scarring at the lung apices. Status post cholecystectomy with central intrahepatic biliary ductal dilatation.? Dilated pancreatic duct. Diffuse enlargement of the pancreas with the prominence of the head and uncinate process.? Correlation with ultrasound is recommended for further evaluation. ? ROS Const Constitutional: Positive for weight change; No fatigue ENT ENT: No difficulty swallowing Gastro GI: No abdominal pain, belching, bloating, change in bowel habits, change in stool character, coffee ground emesis, constipation, cramping, diarrhea, heartburn, difficulty swallowing, feeling full early, excessive flatus, incontinent of stools, Vomiting blood/hematemesis, Blood in stool, loose stools, Black,tarry stools, nausea/dyspepsia, pain with swallowing, vomiting or other Musc Musculoskeletal: No joint pain Skin Skin: No yellowing of the eye or itchy eyes Psych Psychiatric: No anxiety and No depression Endo Endocrine: Positive for weight change; No fatigue Aller/Imm Allergy/Immunologic: No itchy eyes Toni/Lymp Hematologic/Lymphatic: No easy bleeding or easy bruising Exam Const General: cooperative, comfortable and no acute distress Orientation: alert, awake and oriented x3 HENMT Head: normal to inspection Eyes Sclera: sclerae normal Chest Chest palpation & inspection: normal inspection of the chest Resp Effort & Inspection: normal respiratory effort GI Inspection: normal to inspection Palpation: soft, no hepatosplenomegaly, no masses and nontender Quality Reporting Tobacco Screening (CMS 138) Smoking Status: Former smoker Assessment and Plan Assessment and Plan (1) Pancreatitis: ?Status:?Chronic ?Qualifiers: ?Acute pancreatitis complication:?no infection or necrosis??Chronicity:? acute??Pancreatitis type:?unspecified pancreatitis type? Qualified Code(s):? K85.90 - Acute pancreatitis without necrosis or infection, unspecified ?Plan: 61 yr old male with recurrent acute on chronic pancreatitis When he needs new rx for Creon we can do the highest strength (currently has 12,000 dose) Will update CA 19-9 today Will schedule screening colonoscopy with f/u 2 wks later (2) Hypertension: ?Status:?Chronic ?Plan: Discussed with pt that he has had multiple elevated BP readings going back to 2019 per our records, strongly encouraged him to call his PCP, and to go to ED if his headaches worsen (reports PINON is better since starting treatment for sinusitis 2 days ago) ? ? ? Orders: Orders CA 19-9 Serial Monitor Today K85.90 - Acute pancreatitis without necrosis or infection, unspecified ? Medications: Discontinued hydrocodone-acetaminophen 5-325 mg ?? Discontinued Reason:? Pt no longer taking 1 TAB? PO Q6H 3 days PRN 12 tabs 0RF pain K85.90 - Acute pancreatitis without necrosis or infection, unspecified ? hydrocodone-acetaminophen 5-325 mg ?? Discontinued Reason:? Pt no longer taking 1 TAB? PO Q6H 3 days PRN 10 tabs 0RF pain K85.90 - Acute pancreatitis without necrosis or infection, unspecified ? I have examined the patient and the H&P has been reviewed. There are no clinical changes since date of exam.
--- NOTE | 2023-03-28 07:05 | OP.CCLET_ITS ---
03/28/2023 Bobby Fountain Do Re : Colonoscopy procedure for Vasiliy Cheney Dear Dr. Fountain This procedure was performed on Tuesday, March 28, 2023. My impressions and recommendations are as follows: Impressions : - Diverticulosis in the recto-sigmoid colon and in the sigmoid colon. - Two 1 to 2 mm polyps in the sigmoid colon and in the transverse colon, removed with a cold snare. Resected and retrieved. Recommendations : - Repeat colonoscopy in 5 years for surveillance. - Continue present medications. My findings are described in the full procedure note, which is enclosed. If I can be of further assistance, please feel free to contact me at . Sincerely, Lorne Alberts, 03/28/2023 7:05:06 AM This report has been signed electronically.
--- NOTE | 2023-03-28 07:05 | OP.COLON_ITS ---
Patient Name: Vasiliy Cheney Procedure Date: 03/28/2023 6:21 AM Date of : 1960 Age: 62 Procedure: Colonoscopy Indications: Screening for colorectal malignant neoplasm Providers: Lorne Alberts DO Referring MD: Lorne Alberts DO Medicines: Monitored Anesthesia Care Patient Profile: This is a 62 year old male. Refer to note in patient chart for documentation of history and physical. Last Colonoscopy: none. The patient's first colonoscopy is today. Complications: No immediate complications. Procedure: Pre-Anesthesia Assessment: - Prior to the procedure, a History and Physical was performed, and patient medications and allergies were reviewed. The risks and benefits of the procedure and the sedation options and risks were discussed with the patient. All questions were answered and informed consent was obtained. Patient identification and proposed procedure were verified by the physician. Mental Status Examination: normal. Prophylactic Antibiotics: The patient does not require prophylactic antibiotics. Prior Anticoagulants: The patient has taken no previous anticoagulant or antiplatelet agents. ASA Grade Assessment: II - A patient with mild systemic disease. After reviewing the risks and benefits, the patient was deemed in satisfactory condition to undergo the procedure. The anesthesia plan was to use monitored anesthesia care (MAC). Immediately prior to administration of medications, the patient was re-assessed for adequacy to receive sedatives. The heart rate, respiratory rate, oxygen saturations, blood pressure, adequacy of pulmonary ventilation, and response to care were monitored throughout the procedure. The physical status of the patient was re-assessed after the procedure. After I obtained informed consent, the scope was passed under direct vision. Throughout the procedure, the patient's blood pressure, pulse, and oxygen saturations were monitored continuously. The colonoscope was introduced through the anus and advanced to the cecum, identified by appendiceal orifice and ileocecal valve. The colonoscopy was performed without difficulty. The patient tolerated the procedure well. The quality of the bowel preparation was good. Scope In: 6:41:42 AM Scope Withdrawal Time 0 hours 9 minutes 6 seconds Scope Out: 6:56:23 AM Total Procedure Duration Time 0 hours 14 minutes 41 seconds Findings: The perianal and digital rectal examinations were normal. A few small-mouthed diverticula were found in the recto-sigmoid colon and sigmoid colon. Two sessile polyps were found in the sigmoid colon and transverse colon. The polyps were 1 to 2 mm in size. These polyps were removed with a cold snare. Resection and retrieval were complete. Verification of patient identification for the specimen was done. Estimated blood loss was minimal. Impression: - Diverticulosis in the recto-sigmoid colon and in the sigmoid colon. - Two 1 to 2 mm polyps in the sigmoid colon and in the transverse colon, removed with a cold snare. Resected and retrieved. Recommendation: - Repeat colonoscopy in 5 years for surveillance. - Continue present medications. Procedure Code(s): --- Professional --- 59791, Colonoscopy, flexible; with removal of tumor(s), polyp(s), or other lesion(s) by snare technique CPT copyright 2017 [employer]. All rights reserved. The codes documented in this report are preliminary and upon custom tailor apprentice review may be revised to meet current compliance requirements. Lorne Alberts DO 03/28/2023 7:05:06 AM This report has been signed electronically. Number of Addenda: 0 Note Initiated On: 03/28/2023 6:21 AM
[2023-03-29 04:08] LABS: Carbohydrate AG 19-9 8 U/mL (0-35)
== END 2023-03-28 08:01 | disposition home or self-care (01) ==
LOC: EN 05:28 → AC 05:30
PROVIDERS: Visit Provider Internal Medicine Gastroenterology
PROC: 0DJD8ZZ Inspection of Lower Intestinal Tract, Via Natural or Artificial Opening Endoscopic (ICD-10-PCS; CPT 45378; principal; 2023-03-28 06:25)
DX: Z12.11 Encounter for screening for malignant neoplasm of colon (principal); K86.1 Other chronic pancreatitis; K85.90 Acute pancreatitis without necrosis or infection, unspecified; K57.30 Diverticulosis of large intestine without perforation or abscess without bleeding; I10 Essential (primary) hypertension; Z87.891 Personal history of nicotine dependence; Z90.49 Acquired absence of other specified parts of digestive tract; D12.3 Benign neoplasm of transverse colon; Z79.899 Other long term (current) drug therapy; E78.00 Pure hypercholesterolemia, unspecified
CPT/HCPCS: 45385; 36415; 86301; 88305; J7120; J2405

== ENCOUNTER 2023-03-29 01:49 | Emergency (ER) | payer MEDICAID, SELFPAY ==
[2023-03-29 01:50] VITALS: BP 115/96; PULSE 76; RESP 18; TEMP 37.1; O2SAT 98; BMI 22.5
[2023-03-29] MEDS: Lidocaine Jelly 2% 20 ML Syringe (URO-JET) 1 APPLIC TOPICAL (02:51)
[2023-03-29 03:11] VITALS: PULSE 79; RESP 17; O2SAT 97
--- NOTE | 2023-03-29 03:11 | EX.ED.DYSGE1 ---
HPI History of Present Illness Chief Complaint: Abd Pain Informant: patient Narrative Narrative: Patient is a 62-year-old male with past medical history of hypertension and recurrent pancreatitis. He underwent a colonoscopy on Friday and he states afterwards he has been having difficulty urinating. He states he has the urge to urinate and then tries to do so and when he can get a teaspoon out. He states that he is now having lower abdominal pain and with the fact he cannot urinate comes in for evaluation. He denies any history of urinary retention in the past [facility] Medical History (Updated 03/29/23 @ 03:[address] Yvon Fox, ) Anxiety High cholesterol History of echocardiogram Hx of pancreatitis Hypertension Non-smoker Pancreatitis Wears glasses Home Medications [id number] 12,000-38,000-60,000 unit capsule,delayed rel (Creon) 3 cap PO TIDCM 12/17/21 [History Last Taken 12/17/21] omeprazole 40 mg capsule,delayed release 40 mg PO DAILY 12/17/21 [History Last Taken 12/17/21] lisinopril 20 mg tablet 20 mg PO DAILY 30 days #30 tabs 11/06/22 [Rx Last Taken 03/28/23 05:45] cholecalciferol (vitamin D3) 50 mcg (2,000 unit) capsule (Vitamin D3) 50 mcg PO DAILY 01/01/23 [History Last Taken Unknown] Allergy/AdvReac Type Severity Reaction Status Date / Time amoxicillin [From Augmentin] Allergy Swelling Verified 03/29/23 01:57 clavulanic acid Allergy Swelling Verified 03/29/23 01:57 [From Augmentin] Penicillins Allergy PT UNSURE Verified 03/29/23 01:57 OF REACTION hydromorphone [From Dilaudid] AdvReac Other Verified 03/29/23 01:57 Family History Father Myocardial infarction Surgical History History of ERCP Hx of cholecystectomy S/P appendectomy Social History Smoking Status: Former smoker ROS ROS ED Constitutional Constitutional ED: Denies chills or fever(s) ENT ENT ED: Denies sore throat Cardiovascular Cardiovascular: Denies chest pain Respiratory/Chest Respiratory/Chest: Denies cough or dyspnea Gastrointestinal Gastrointestinal: Reports abdominal pain; Denies diarrhea, nausea or vomiting Genitourinary Genitourinary ED: Reports other Details: Positive retention ; Denies dysuria Musculoskeletal Musculoskeletal: Denies back pain or myalgias Integumentary Denies rash Neurologic Neurologic: Denies headache(s) Hematologic/Lymphatic Hematologic/Lymphatic: Denies easy bleeding or easy bruising EXAM Physical Exam Const Vital Signs: 03/29/23 01:50 Temperature 98.7 F Temperature Source Temporal Pulse Rate 76 Respiratory Rate 18 Blood Pressure 115/96 H Blood Pressure Mean 102 Pulse Ox 98 Oxygen Delivery Method Room Air Positive well nourished and well developed General Appearance ED: well developed Eyes PERRL and EOMs intact bilaterally General Eye ED: Negative for scleral icterus Neck supple Resp normal respiratory effort and clear to auscultation bilaterally Cardio regular rate and regular rhythm Rate: other Other Details: Radial pulses are plus 2 out of 4 bilaterally are equal and symmetric GI GI Narrative: There is organomegaly and slight distention noted in the lower mid abdomen consistent with a distended bladder. There is pain on palpation at the site. The remainder of the abdominal exam is soft and nonsurgical. No voluntary guarding or pulsatile mass or fluid wave Auscultation: normoactive bowel sounds Palpation: soft Narrative: Normal circumcised male without blood or discharge from the urethral meatus. No testicular swelling or masses. No soft tissue changes to suggest Sheryl's gangrene. Back/Spine no CVA tenderness Extremity normal to inspection Neuro oriented x3 and CN's II-XII intact bilaterally Sensorium / Orientation: alert Psych mental status grossly normal Skin no rashes or lesions noted General Skin Exam: Negative for jaundice MDM MDM MDM Narrative Medical decision making narrative: Patient presented to the ER with stable vitals and reported approximately 12 hours of little to no urination. On physical exam he does have distention in the lower mid abdomen consistent with a distended bladder. Differential diagnosis is urinary retention versus UTI versus pyelonephritis versus kidney stone versus pancreatitis. Based on the patient's history and exam acute urinary retention from anesthesia is the most likely diagnosis. As symptoms only and present for 12 hours concern for acute kidney injury is low. Therefore I do not feel need for imaging or laboratory study. Patient had a Dickey catheter placed and it drained approximately 600 mL of urine and on reevaluation patient's distention/organomegaly is resolved. Therefore at this time the catheter to be kept in place to ensure there is no return of urinary tension and he is otherwise safe to discharge and follow-up with urology on an outpatient basis History & Record Review Discussion w/independent historian: Patient Discharge Plan Triage Chief Complaint: Abd Pain ED Provider: Yvon Fox Dx/Rx/DC Orders Clinical Impression: Acute urinary retention, Hypertension, Hx of pancreatitis Instructions: ED Dickey Catheter, Care, ED Urinary Retention, Male Prescriptions: No Action omeprazole 40 mg capsule,delayed release(DR/EC) 40 mg PO DAILY Label Comments: TAKE 1 CAPSULE Oral EVERY Day Creon 12,000-38,000 -60,000 unit capsule,delayed release(DR/EC) 3 cap PO TIDCM Label Comments: TAKE 6 CAPSULES BY MOUTH 4 TIMES A DAY WITH MEALS lisinopril 20 mg tablet 20 mg PO DAILY 30 Days Qty: 30 0RF cholecalciferol (vitamin D3) [Vitamin D3] 50 mcg (2,000 unit) Capsule 50 mcg PO DAILY Primary Care Provider: Bobby Fountain Referrals: Karan Velarde MD [Med Staff - Active Staff] - Bobby Fountain DO [Primary Care Provider] - Activity Restrictions/Additional Instructions: Please follow-up with urology for repeat evaluation of your urinary retention and return to the ER should you have any further concerns Disposition Disposition: Home, Self Care
== END 2023-03-29 03:37 | disposition home or self-care (01) ==
PROVIDERS: Emergency Provider Emergency Medicine; Visit Provider Emergency Medicine
DX: R33.9 Retention of urine, unspecified (principal); E78.00 Pure hypercholesterolemia, unspecified; Z87.891 Personal history of nicotine dependence; I10 Essential (primary) hypertension; K85.90 Acute pancreatitis without necrosis or infection, unspecified; Z79.899 Other long term (current) drug therapy
CPT/HCPCS: 99282

== ENCOUNTER 2023-03-30 22:03 | Emergency (ER) | payer MEDICAID, SELFPAY ==
[2023-03-30 22:04] VITALS: BP 146/108; PULSE 78; RESP 16; TEMP 36.9; O2SAT 99; BMI 23.6
== END 2023-03-30 22:53 | disposition left against medical advice (07) ==
DX: Z53.21 Procedure and treatment not carried out due to patient leaving prior to being seen by health care provider (principal)

== ENCOUNTER 2023-07-03 21:54 | Emergency (ER) | payer MEDICAID, SELFPAY ==
[2023-07-03 21:56] VITALS: BP 170/90; PULSE 66; RESP 18; TEMP 36.8; O2SAT 98; BMI 23.9
[2023-07-03 22:12] VITALS: BP 140/96; RESP 17
--- NOTE | 2023-07-03 22:39 | EX.ED.DYSGE1 ---
HPI History of Present Illness Chief Complaint: General Illness Informant: patient Narrative Narrative: Patient states tonight over the last few hours he was feeling fatigued, and because of waking up in sepsis wants, having chronic pancreatitis that gives him some mild chronic diarrhea and having to take Creon, this got him concerned about the last things that he has eaten, he states he has not been eating very healthfully, eating a lot of sugar, thinking maybe his potassium was low, etc. He checked his blood pressure and it was high --140s/90s. Similar readings here. He states he looked this up on the Internet and since somewhere it said with numbers 140/90 you should either make an appointment with her doctor or go to the ER so he came to the ER tonight, admitting that he is feeling a little anxious, and thinking that is what is been making him feel a little short of breath just tonight as well. He denies having that now. He denies any chest discomfort. His right shoulder has been bothering him a little, sore, hurts more to move around but not as bad now. No palpitations lightheadedness or syncope/near syncope. No other recent illness. No changes in medications. No alcohol since he was diagnosed with pancreatitis. [facility] Medical History Anxiety High cholesterol History of echocardiogram Hx of pancreatitis Hypertension Non-smoker Pancreatitis Wears glasses Home Medications omeprazole 40 mg capsule,delayed release 40 mg PO DAILY 12/17/21 [History Last Taken 12/17/21] cholecalciferol (vitamin D3) 50 mcg (2,000 unit) capsule (Vitamin D3) 50 mcg PO DAILY 01/01/23 [History Last Taken Unknown] [id number] 36,000-114,000-180,000 unit capsule,delay rel (Creon) See Rx Instructions PO .COMPLEX #360 caps 06/11/23 [Rx Last Taken Unknown] lisinopril 20 mg tablet 30 mg PO DAILY 07/03/23 [History Last Taken Unknown] Allergy/AdvReac Type Severity Reaction Status Date / Time amoxicillin [From Augmentin] Allergy Swelling Verified 07/03/23 21:58 clavulanic acid Allergy Swelling Verified 07/03/23 21:58 [From Augmentin] Penicillins Allergy PT UNSURE Verified 07/03/23 21:58 OF REACTION hydromorphone [From Dilaudid] AdvReac Other Verified 07/03/23 21:58 Family History (Reviewed 04/08/23 @ 14:03 by Becky Brian CEMENTING MACHINE OPERATOR, CEMENTING MACHINE OPERATOR-C) Father Myocardial infarction Surgical History History of ERCP Hx of cholecystectomy S/P appendectomy Social History Smoking Status: Former smoker ROS ROS ED Constitutional Constitutional ED: Reports fatigue; Denies chills or fever(s) Eyes Eyes: Denies change in vision or diplopia ENT ENT ED: Denies rhinorrhea or sore throat Cardiovascular Cardiovascular: Denies chest pain or palpitations Respiratory/Chest Respiratory/Chest: Reports as per HPI and dyspnea; Denies cough Gastrointestinal Gastrointestinal: Denies abdominal pain, diarrhea, nausea or vomiting Genitourinary Genitourinary ED: Denies dysuria or hematuria Musculoskeletal Musculoskeletal: Denies back pain or neck pain Integumentary Denies abscess or rash Neurologic Neurologic: Denies headache(s), paresthesias or weakness Psychiatric Psychiatric: Reports anxiety; Denies suicidal thoughts EXAM Physical Exam Const Vital Signs: 07/03/23 21:56 07/03/23 22:12 07/03/23 22:13 Temperature 98.3 F Temperature Source Temporal Pulse Rate 66 Respiratory Rate 18 17 Respiratory Effort Normal Non-Labored Respiratory Pattern Normal Blood Pressure 170/90 H 140/96 H Blood Pressure Mean 116 110 Pulse Ox 98 Oxygen Delivery Method Room Air Room Air Positive well nourished and well developed General Appearance ED: well developed and NAD HEENT Reports moist mucous membranes normocephalic and atraumatic Eyes PERRL and EOMs intact bilaterally Neck full ROM and supple Resp normal respiratory effort and clear to auscultation bilaterally Cardio regular rate, regular rhythm and no murmurs GI non-tender and non-distended Auscultation: normoactive bowel sounds Palpation: soft Back/Spine no CVA tenderness General Back: other FROM Extremity normal to inspection General Extremety ED: Negative for edema, pulses abnormal or tenderness General Extremity: Negative for edema or pulses abnormal Neuro oriented x3, CN's II-XII intact bilaterally and no sensory deficits noted Sensorium / Orientation: awake and alert Motor Exam: strength 5/5 throughout Psych mental status grossly normal Skin no rashes or lesions noted and no wounds MDM MDM MDM Narrative Medical decision making narrative: Reassured patient. We discussed the blood pressure numbers, 140s/90s is nothing emergent, and my recommendation is to simply have this reevaluated. I offered to do some blood work and check his potassium level/electrolytes, blood counts, EKG. He declines and states he was feeling better just talking with me, and we discussed reasons to return, I am okay with him being discharged home I do not think he is having unstable angina, but we did discuss that as a less likely possibility. He understands. His lungs are clear, he is not tachycardic, and his pulse ox is 90% on room air. He has no thromboembolic risk factors, nor does he have any clinical signs of a DVT nor risk for that recently. Discharge Plan Triage Chief Complaint: General Illness ED Provider: Brock Morocho Dx/Rx/DC Orders Clinical Impression: Episode of hypertension, Anxiety Instructions: Blood Pressure Check Steps Prescriptions: No Action omeprazole 40 mg capsule,delayed release(DR/EC) 40 mg PO DAILY Patient Comments: TAKE 1 CAPSULE Oral EVERY Day cholecalciferol (vitamin D3) [Vitamin D3] 50 mcg (2,000 unit) Capsule 50 mcg PO DAILY lisinopril 20 mg tablet 30 mg PO DAILY Creon 36,000-114,000- 180,000 unit capsule,delayed release(DR/EC) See Rx Instructions PO .COMPLEX Qty: 360 5RF Rx Instructions: take 1-2 capsules with snacks, take 2-3 capsules with meals Primary Care Provider: Bobby Fountain Referrals: Bobby Fountain DO [Primary Care Provider] - 5-7 Days Disposition Disposition: Home, Self Care
[2023-07-03 22:50] VITALS: BP 144/92; PULSE 58; RESP 17; O2SAT 97
== END 2023-07-03 22:53 | disposition home or self-care (01) ==
PROVIDERS: Emergency Provider Emergency Medicine; Visit Provider Emergency Medicine
DX: I10 Essential (primary) hypertension (principal); F41.9 Anxiety disorder, unspecified; E78.00 Pure hypercholesterolemia, unspecified; Z79.899 Other long term (current) drug therapy; Z87.891 Personal history of nicotine dependence
CPT/HCPCS: 99282

== ENCOUNTER 2023-08-09 17:07 | Emergency (ER) | payer MEDICAID, SELFPAY ==
[2023-08-09 17:09] VITALS: BP 147/114; PULSE 85; RESP 18; TEMP 36.6; O2SAT 95
--- NOTE | 2023-08-09 17:20 | EKG12_ITS ---
Test Reason : CP Blood Pressure : / mmHG Vent. Rate : 061 BPM Atrial Rate : 061 BPM P-R Int : 142 ms QRS Dur : 100 ms QT Int : 440 ms P-R-T Axes : -04 006 050 degrees QTc Int : 442 ms Normal sinus rhythm Incomplete right bundle branch block Borderline ECG Confirmed by JANAE VILLAVICENCIO, PHU ([id number]), assignment editor ANMOL BLANCAS ([id number]) on 08/11/2023 2:27:29 PM Referred By: Confirmed By:PHU CARDOSO MD
[2023-08-09 17:21] VITALS: BMI 24.4
[2023-08-09] MEDS: Aspirin 81 MG TAB.CHEW 324 MG PO (17:37)
--- NOTE | 2023-08-09 18:00 | RAD_ITS ---
STUDY: X-RAY CHEST REASON FOR EXAM: Male, 62 years old. chest pain TECHNIQUE: Single AP portable view of the chest. COMPARISON: 07/04/2022 FINDINGS: The lungs are clear and expanded. There is no demonstrated pleural abnormality. Normal size heart. Normal mediastinum and radha. Normal visualized pulmonary arteries. Normal visualized aortic arch and descending thoracic aorta. Normal visualized thoracic spine. Normal visualized ribs, clavicles, and shoulders. There is no demonstrated abnormality of the visualized soft tissue structures of the upper abdomen. RAD/Chest 1 View (Portable) IMPRESSION: Normal x-ray examination of the chest. Electronically Signed: Edmar Benítez MD at 18:33 EDT ,
[2023-08-09 18:08] LABS: AST(SGOT) 14 U/L (15-37); Alanine Aminotransfer ALT/SGPT 34 U/L (16-61); Alkaline Phosphatase 76 U/L (45-117); Anion Gap 6 (5-15); BUN 16 mg/dL (7-18); BUN/Creat Ratio 10.6 RATIO (10-20); Bilirubin, Direct 0.18 mg/dL (0.00-0.30); Chloride 105 mmol/L (98-107); Creatinine, Serum 1.51 mg/dL (0.70-1.30); EST Glomerular Filtration Rate 50 mL/min (>60); Est Glom Filt Rate - Afr Amer 60 mL/min (>60); Estimated Creatinine Clearance 54.02 ml/min; Globulin 3.9 g/dL (2.2-4.2); Glucose 142 mg/dL (74-106); Lipase 85 U/L (13-75); Potassium 3.3 mmol/L (3.5-5.1); Protein, Total 7.9 g/dL (6.4-8.2); Sodium Level 138 mmol/L (136-145); Troponin-I HS 4 pg/mL (3.0-78.0)
[2023-08-09 18:12] LABS: Absolute Lymphocyte Count 1.35 X10^3/uL (0.83-4.51); Absolute Neutrophil Count 6.5 X10^3/uL (2.0-7.7); Basophil# 0.04 X10^3/uL; Basophil% 0.5 % (0-1); Eosinophil# 0.04 X10^3/uL; Eosinophils% 0.5 % (0-5); Hematocrit 42.3 % (40-54); Hemoglobin 13.9 g/dL (13.0-16.5); Lymphocyte # 1.35 X10^3/ul (0.83-4.51); Lymphocyte % 15.9 % (19-41); Mean Corp Hgb Conc 32.9 g/dL (32-36); Mean Corpuscular Hgb 29.1 pg (27.0-32.0); Mean Corpuscular Volume 88.5 fL (80-94); Mean Platelet Vol. 9.8 fl (6.2-12.0); Monocyte# 0.52 X10^3/uL; Monocyte% 6.1 % (0-10); NRBC Flagged by Analyzer 0 % (0-5); Neutrophil # 6.51 X10^3/uL (2.7-7.7); Neutrophil % 76.8 % (47-70); Platelet Count 170 K/mm3 (150-450); RBC Distribution Width CV 12.8 % (11.6-14.6); RBC Distribution Width SD 42.2 fl (35.1-43.9); Red Blood Count 4.78 M/mm3 (4.6-6.2); White Blood Count 8.5 K/mm3 (4.4-11.0)
--- NOTE | 2023-08-09 19:16 | ED.VIS.CHEST ---
HPI History of Present Illness Chief Complaint: Chest Pain Narrative Narrative: 62-year-old male presenting with epigastric/retrosternal chest pain which is sharp in nature which started about 3 hours prior to presentation. Patient states that he is an argument with his girlfriend for the last 24 hours and he states that he has a history of anxiety and thinks that it might be part of the problem. Patient also states that since he had gallbladder surgery he gets intermittent attacks of pain in his epigastrium. States that sometimes is worse when he eats. Currently is pain-free. Denies any cardiac history. He states he has a history of recurrent pancreatitis but does not believe it is secondary to alcoholism. [facility] Medical History Anxiety High cholesterol History of echocardiogram Hx of pancreatitis Hypertension Non-smoker Pancreatitis Wears glasses Home Medications omeprazole 40 mg capsule,delayed release 40 mg PO DAILY 12/17/21 [History Last Taken 12/17/21] cholecalciferol (vitamin D3) 50 mcg (2,000 unit) capsule (Vitamin D3) 50 mcg PO DAILY 01/01/23 [History Last Taken Unknown] [id number] 36,000-114,000-180,000 unit capsule,delay rel (Creon) See Rx Instructions PO .COMPLEX #360 caps 06/11/23 [Rx Last Taken Unknown] lisinopril 20 mg tablet 30 mg PO DAILY 07/03/23 [History Last Taken Unknown] Allergy/AdvReac Type Severity Reaction Status Date / Time amoxicillin [From Augmentin] Allergy Swelling Verified 08/09/23 17:09 clavulanic acid Allergy Swelling Verified 08/09/23 17:09 [From Augmentin] Penicillins Allergy PT UNSURE Verified 08/09/23 17:09 OF REACTION hydromorphone [From Dilaudid] AdvReac Other Verified 08/09/23 17:09 Family History (Reviewed 04/08/23 @ 14:03 by Becky Brian TELEMARKETING SALES REPRESENTATIVE, TELEMARKETING SALES REPRESENTATIVE-C) Father Myocardial infarction Surgical History History of ERCP Hx of cholecystectomy S/P appendectomy Social History Smoking Status: Former smoker EXAM Physical Exam Const Vital Signs: 08/09/23 17:09 08/09/23 17:23 08/09/23 17:42 Temperature 97.8 F Temperature Source Temporal Pulse Rate 85 Respiratory Rate 18 Respiratory Effort Normal Non-Labored Blood Pressure 147/114 H Blood Pressure Mean 125 Pulse Ox 95 Oxygen Delivery Method Room Air Room Air 08/09/23 19:59 Temperature Temperature Source Pulse Rate 64 Respiratory Rate 14 Respiratory Effort Blood Pressure 159/101 H Blood Pressure Mean 120 Pulse Ox 100 Oxygen Delivery Method Room Air MDM MDM MDM Narrative Medical decision making narrative: Presenting with chest pain. Differential includes anxiety, ACS, CHF, pneumonia. Considered PE however patient PERC negative. Blood work ultimately unremarkable. EKG shows a normal sinus rhythm with a ventricular of 61 bpm without sign of ischemic change or ectopy on my interpretation. Chest x-ray my interpretation shows no acute process. Initial high-sensitivity troponin was 4 and the second troponin is 5. There is no significant interval change. Liver enzymes came back normal. Lipase minimally elevated but not elevated enough to be pancreatitis. Patient currently pain-free. I feel he is stable for discharge home. Impression: 1. Chest pain 2. History of anxiety 3. history of pancreatitis Lab Data Labs: Laboratory Results - last 24 hr 08/09/23 08/09/23 08/09/23 17:40 17:40 18:08 WBC Cancelled 8.5 Corrected WBC Cancelled RBC Cancelled 4.78 Hgb Cancelled 13.9 Hct Cancelled 42.3 MCV Cancelled 88.5 MCH Cancelled 29.1 MCHC Cancelled 32.9 RDW Std Deviation Cancelled 42.2 RDW Coeff of Ghanshyam Cancelled 12.8 Plt Count Cancelled 170 MPV Cancelled 9.8 Immature Gran % (Auto) Cancelled 0.200 Neut % (Auto) Cancelled 76.8 H Lymph % (Auto) Cancelled 15.9 L Dickenson % (Auto) Cancelled 6.1 Eos % (Auto) Cancelled 0.5 Baso % (Auto) Cancelled 0.5 Absolute Neuts (auto) Cancelled 6.5 Absolute Lymphs (auto) Cancelled 1.35 Total Counted Cancelled Neutrophils % (Manual) Cancelled Band Neutrophils % Cancelled Lymphocytes % (Manual) Cancelled Monocytes % (Manual) Cancelled Eosinophils % (Manual) Cancelled Basophils % (Manual) Cancelled Metamyelocytes % Cancelled Myelocytes % Cancelled Promyelocytes % Cancelled Blast Cells % Cancelled Plasma Cell % (Manual) Cancelled Other Cells % Cancelled Nucleated RBC % Cancelled 0 Nucleated RBCs/100 WBC Cancelled Differential Comment Cancelled Diff Path Review Cancelled Hypersegmented Neuts Cancelled Atypical Lymphocytes Cancelled Reactive Lymphocytes Cancelled Smudge Cells Cancelled Toxic Granulation Cancelled Toxic Vacuolation Cancelled Dohle Bodies Cancelled Katya Rods Cancelled Platelet Estimate Cancelled Plt Morphology Comment Cancelled RBC Morphology Cancelled Cancelled Polychromasia Cancelled Hypochromasia Cancelled Poikilocytosis Cancelled Basophilic Stippling Cancelled Anisocytosis Cancelled Microcytosis Cancelled Macrocytosis Cancelled Spherocytes Cancelled Sickle Cells Cancelled Target Cells Cancelled Tear Drop Cells Cancelled Ovalocytes Cancelled Stomatocytes Cancelled Jim-Sunrise Bodies Cancelled Luz Cells Cancelled Bite Cells Cancelled Crenated Cell Cancelled Acanthocytes (Spur) Cancelled Rouleaux Cancelled Schistocytes Cancelled Sodium 138 Potassium 3.3 L Chloride 105 Carbon Dioxide 27.0 Anion Gap 6 BUN 16 Creatinine 1.51 H Estim Creat Clear Calc 54.02 Est GFR (MDRD) Af Amer 60 Est GFR (MDRD) Non-Af 50 L BUN/Creatinine Ratio 10.6 Glucose 142 H Calcium 9.0 Total Bilirubin 0.70 Direct Bilirubin 0.18 AST 14 L ALT 34 Alkaline Phosphatase 76 Troponin I High Sens 4 Total Protein 7.9 Albumin 4.0 Globulin 3.9 Lipase 85 H 08/09/23 19:50 WBC Corrected WBC RBC Hgb Hct MCV MCH MCHC RDW Std Deviation RDW Coeff of Ghanshyam Plt Count MPV Immature Gran % (Auto) Neut % (Auto) Lymph % (Auto) Dickenson % (Auto) Eos % (Auto) Baso % (Auto) Absolute Neuts (auto) Absolute Lymphs (auto) Total Counted Neutrophils % (Manual) Band Neutrophils % Lymphocytes % (Manual) Monocytes % (Manual) Eosinophils % (Manual) Basophils % (Manual) Metamyelocytes % Myelocytes % Promyelocytes % Blast Cells % Plasma Cell % (Manual) Other Cells % Nucleated RBC % Nucleated RBCs/100 WBC Differential Comment Diff Path Review Hypersegmented Neuts Atypical Lymphocytes Reactive Lymphocytes Smudge Cells Toxic Granulation Toxic Vacuolation Dohle Bodies Katya Rods Platelet Estimate Plt Morphology Comment RBC Morphology Polychromasia Hypochromasia Poikilocytosis Basophilic Stippling Anisocytosis Microcytosis Macrocytosis Spherocytes Sickle Cells Target Cells Tear Drop Cells Ovalocytes Stomatocytes Jim-Sunrise Bodies Luz Cells Bite Cells Crenated Cell Acanthocytes (Spur) Rouleaux Schistocytes Sodium Potassium Chloride Carbon Dioxide Anion Gap BUN Creatinine Estim Creat Clear Calc Est GFR (MDRD) Af Amer Est GFR (MDRD) Non-Af BUN/Creatinine Ratio Glucose Calcium Total Bilirubin Direct Bilirubin AST ALT Alkaline Phosphatase Troponin I High Sens 5 Total Protein Albumin Globulin Lipase Radiography Diagnostic Testing: Clinical Impression(s) from Imaging Studies Chest X-Ray 08/09/23 18:00 IMPRESSION: Normal x-ray examination of the chest. Electronically Signed: Edmar Benítez MD at 18:33 EDT , Discharge Plan Triage Chief Complaint: Chest Pain ED Provider: Addy Ovalle Dx/Rx/DC Orders Instructions: ED Chest Pain, Noncardiac Prescriptions: No Action omeprazole 40 mg capsule,delayed release(DR/EC) 40 mg PO DAILY Patient Comments: TAKE 1 CAPSULE Oral EVERY Day cholecalciferol (vitamin D3) [Vitamin D3] 50 mcg (2,000 unit) Capsule 50 mcg PO DAILY lisinopril 20 mg tablet 30 mg PO DAILY Creon 36,000-114,000- 180,000 unit capsule,delayed release(DR/EC) See Rx Instructions PO .COMPLEX Qty: 360 5RF Rx Instructions: take 1-2 capsules with snacks, take 2-3 capsules with meals Primary Care Provider: Bobby Fountain Referrals: Bobby Fountain DO [Primary Care Provider] - Disposition Disposition: Home, Self Care
[2023-08-09 19:59] VITALS: BP 159/101; PULSE 64; RESP 14; O2SAT 100
[2023-08-09 20:33] LABS: Troponin-I HS 5 pg/mL (3.0-78.0)
[2023-08-09 20:58] VITALS: BP 147/103; PULSE 61; O2SAT 95
== END 2023-08-09 21:05 | disposition home or self-care (01) ==
PROVIDERS: Emergency Provider Student in an Organized Health Care Education/Training Program; Visit Provider Student in an Organized Health Care Education/Training Program
DX: R07.9 Chest pain, unspecified (principal); E78.00 Pure hypercholesterolemia, unspecified; I10 Essential (primary) hypertension; Z87.891 Personal history of nicotine dependence; F41.9 Anxiety disorder, unspecified; Z98.890 Other specified postprocedural states; Z87.19 Personal history of other diseases of the digestive system
CPT/HCPCS: 71045; 80048; 80076; 83690; 84484; 85025; 93005; 99283; A4216

== ENCOUNTER → 2023-10-31 | Outpatient (CLI) | payer MEDICAID, SELFPAY ==
--- NOTE | 2023-10-31 18:55 | CT_ITS ---
STUDY: CT ABDOMEN WITH AND WITHOUT CONTRAST REASON FOR EXAM: Male, 62 years old. Pancreatic protocol RADIATION DOSAGE (If Supplied By Facility): CTDIvol = ( 10.01 ) mGy, DLP = ( 753.36 ) mGycm TECHNIQUE: Transaxial images were obtained pre and post I.V. administration of IV 100mL Isovue-370, and with oral contrast. Sagittal and coronal images were reconstructed. Individualized dose optimization techniques were used for this CT. COMPARISON: 07/04/2022 FINDINGS: The visualized lung bases are unremarkable. The visualized portions of the heart are within normal limits. Normal liver. There is non-visualization of the gallbladder, which may be secondary to either contraction or a prior cholecystectomy. Mild intrahepatic biliary ductal dilatation primarily in the left lobe, similar to the prior study.. Normal spleen. Normal pancreas. Moderate dilatation of the pancreatic duct within the body the pancreas similar to the prior study without obvious pancreatic mass. Normal bilateral adrenal glands. Normal right kidney. Normal left kidney. Normal visualized stomach. Normal small intestine. Normal colon. The appendix is visualized and appears normal. Normal abdominal aorta. Normal inferior vena cava. Normal retroperitoneum. Normal abdominal wall. Normal osseous structures. CT/Abdomen W/WO IV Contrast IMPRESSION: 1. Nonvisualization gallbladder likely from prior cholecystectomy. 2. No change in mild intrahepatic biliary ductal dilatation, primarily in the left lobe. 3. No change in moderate pancreatic ductal dilatation in the body and tail of the pancreas without obvious pancreatic mass. Electronically Signed: Edmar Benítez MD at 22:15 EST ,
--- OUTSIDE RECORDS SUMMARY | 2023-10-31 19:04 | XMS RPT_ITS | CCD ---
Author Name Unknown Address [address] [place] [address] Organization [facility] Care Team Providers Care Preboarder Name Role Phone Rosibel Smith Primary Care Provider [phone] ROSIBEL SMITH MD Primary Care Physician [phone] Pending Provider Unavailable Unavailable Unavailable Unavailable SHAMA VENTURA DO Primary Care Physician THEA VILLAVICENCIO, DR JUSTICE CHOI Attending Unav ailable SHAMA VENTURA DO Primary Care Unavailable SHAMA VENTURA DO Primary Care Unavailable SHAMA VENTURA DO Attending Unavailable SHAMA VENTURA DO Primary Care Unavailable SHAMA VENTURA DO Attending Unavailable SHAMA VENTURA DO Primary Care Unavailable SHAMA VENTURA DO Attending Unavailable Allergies Allergy Classification Reported Allergen(s) Allergy Type Date of Onset Reaction(s) Facility (4 sources) HYDROmorphone Drug Allergy 9 [place], [place] (4 sources) Amoxicillin-Pot Clavulanate Propensity to adverse reactions to drug 9 Shortness Of Breath [place], [place] (20 sources) Amoxicillin / Clavulanate; Translations: [amoxicillin-clav ulanate] Drug Allergy 9 Chest pain (finding), Difficulty breathing (finding), Dyspnea (finding) [facility] Work Phone: (13 sources) Ivermectin; Translations: [ivermectin] Drug Allergy Rash [facility] Work Phone: (13 sources) meloxicam; Translations: [meloxicam] Drug Allergy Rash [facility] Work Phone: (5 sources) Amoxicillin; Translations: [amoxicillin] Drug Allergy [facility] 450 DO Work Phone: Medications Current Medications Medication Drug Class(es) Dates Sig (Normalized) Sig (Original) acetaminophen 325 mg oral tablet (3 sources) Start: 03-31-2020 650 mg, Oral, EVERY 4 HOURS PRN, Pain Mild (1-3), Pain Mild (1-3) or Fever greater than 100.5 F (38 C), Starting 03/31/20 at 0124 Maximum dose of acetaminophen is 4000 mg from all sources in 24 hours. 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] Onset: 9 07-11-2019 Chronic Biliary tract disease (4 sources) Chronic cholecystitis; Translations: [Chronic cholecystitis] 09-14-2019 Episodic Chronic kidney disease (2 sources) Chronic kidney disease; Translations: [Chronic kidney disease, stage 3a] Onset: 3 Diseases of white blood cells (4 sources) Leukocytosis; Translations: [Leukocytosis] Onset: 9 03-19-2019 Chronic Disorders of lipid metabolism (9 sources) Hyperlipidemia; Translations: [Hyperlipidemia, unspecified] Onset: 2 05-21-2019 Chronic Esophageal disorders (3 sources) Gastroesophageal reflux disease 07-15-2022 Chronic Essential hypertension (1 source) Essential hypertension 11-13-2022 Chronic Fever of unknown origin (4 sources) Fever; Translations: [Fever] 03-24-2019 Episodic Headache; including migraine (1 source) Generalized headache 11-13-2022 Episodic Neoplasms of unspecified nature or uncertain behavior (5 sources) Neoplasm of uncertain behavior of pancreas; Translations: [Neoplasm of uncertain behavior of other and unspecified digestive organs] Episodic Noninfectious gastroenteritis (1 source) Noninfectious enteritis; Translations: [Noninfective gastroenteritis and colitis, unspecified] Onset: 1 Episodic Nutritional deficiencies (9 sources) Malnutrition (calorie); 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] Onset: 9 07-13-2019 Chronic Other and unspecified benign neoplasm (2 sources) Lipoma of chest wall 07-15-2022 Episodic Other diseases of kidney and ureters (2 sources) Disorder of kidney and ureter, unspecified; Translations: [Disorder of kidney and ureter, unspecified] Onset: 3 Episodic Other endocrine disorders (7 sources) Hyperparathyroidism 05-21-2019 Chronic Other gastrointestinal disorders (4 sources) Mass of pancreas; Translations: [Pancreatic mass] 05-30-2019 Episodic Other gastrointestinal disorders (8 sources) Abdominal bloating 03-23-2021 Episodic Other liver diseases (1 source) High enzyme level in serum; Translations: [Elevated lipase] 05-29-2019 Episodic Other liver diseases (3 sources) High lipase level in serum; Translations: [Elevated lipase] 05-29-2019 Episodic Other lower respiratory disease (1 source) Snoring 11-13-2022 Episodic Other male genital disorders (2 sources) Male erectile dysfunction, unspecified; Translations: [Male erectile dysfunction, unspecified] Onset: 3 Chronic Other nutritional; endocrine; and metabolic disorders (4 sources) Hyperbilirubinemia; Translations: [Hyperbilirubinemia] Onset: 9 03-19-2019 Chronic Other screening for suspected conditions (not mental disorders or infectious disease) (15 sources) Abnormal findings diagnostic imaging of liver+biliary tract; Translations: [Liver function tests abnormal] Onset: 3 05-29-2019 Episodic Other skin disorders (2 sources) Epidermoid cyst 10-23-2022 Episodic Other upper respiratory disease (1 source) Polyp of right nasal cavity 11-13-2022 Episodic Pancreatic disorders (not diabetes) (14 sources) Chronic pancreatitis; Translations: [Other chronic pancreatitis] Onset: 2 11-03-2019 Chronic Pancreatic disorders (not diabetes) (20 sources) Abscess of pancreas; Translations: [Recurrent pancreatitis] Onset: 9 03-24-2019 Episodic Residual codes; unclassified (4 sources) Tobacco user; Translations: [Tobacco abuse disorder] Onset: 9 03-19-2019 Chronic Residual codes; unclassified (5 sources) Past history of procedure; Translations: [History of biliary stent insertion] 07-12-2019 Episodic Unclassified (3 sources) Long-term current use of proton pump inhibitor therapy 07-15-2022 Past or Other Problems Problem Classification Problem Date Documented Da te Episodic/Chronic Other liver diseases (4 sources) Jaundice; Translations: [Jaundice] Onset: 05-28-2019 05-28-2019 Episodic Other skin disorders (2 sources) Sebaceous cyst; Translations: [Sebaceous cyst] Onset: 10-30-2022 Episodic Pleurisy; pneumothorax; pulmonary collapse (4 sources) Bilateral pleural effusion; Translations: [Bilateral pleural effusion] Onset: 03-19-2019 03-19-2019 Episodic Septicemia (except in labor) (5 sources) Sepsis due to Enterobacter; Translations: [Enterobacter sepsis] Onset: 07-11-2019 07-12-2019 Episodic Results Test Name Value Interpretation Reference Range Facil ity Vital Signs Date Time Vital Sign Value Performing Clinician Faci lity 03-18-2022 10:49-0400 Body height 180.34 cm Paulie Torres MD Work Phone: JE-Ocbgragfvw-Wjs rlawn Work Phone: 03-18-2022 10:49-0400 Body mass index (BMI) [Ratio] 22.01 kg/m2 Paulie Torres MD Work Phone: KT-Lwkdylpupj-Yer rlawn Work Phone: 03-18-2022 10:49-0400 Body surface area Derived from formula 1.91 m2 Paulie Torres MD Work Phone: JD-Xfzfydatsu-Mrv rlawn Work Phone: 03-18-2022 10:49-0400 Body weight 71.58 kg Paulie Torres MD Work Phone: AC-Vpdzpcklov-Xry rlawn Work Phone: 03-18-2022 10:49-0400 Diastolic blood pressure 97 mm[Hg] Paulie Torres MD Work Phone: KI-Bpjzucuwnb-Mlk rlawn Work Phone: 03-18-2022 10:49-0400 Heart rate 56 /min Paulie Torres MD Work Phone: GR-Krzsavbsfz-Ysm rlawn Work Phone: 03-18-2022 10:49-0400 Systolic blood pressure 162 mm[Hg] Paulie Torres MD Work Phone: DS-Pyhuzqxoda-Ixs rlawn Work Phone: 12-03-2021 19:17-0500 Body temperature 98.24 [degF] BART SARAVIAELY [employer] INST[employer]ER HELPER-PATIENT FINANCIAL SERVICES MANAGER [facility] 12-03-2021 19:17-0500 Diastolic blood pressure 87 mm[Hg] BART SARAVIAELY [employer] INSTALLER HELPER-PATIENT FINANCIAL SERVICES MANAGER [facility] 12-03-2021 19:17-0500 Heart rate 70 /min BART SARAVIAELY [employer] INSTALLER HELPER-PATIENT FINANCIAL SERVICES MANAGER [facility] 12-03-2021 19:17-0500 Reason For Taking VItal Signs BART SARAVIAELY [employer] INST[employer]ER HELPER-PATIENT FINANCIAL SERVICES MANAGER [facility] 12-03-2021 19:17-0500 Respiratory rate 20 /min BART SARAVIAELY [employer] INST[employer]ER HELPER-PATIENT FINANCIAL SERVICES MANAGER [facility] 12-03-2021 19:17-0500 Systolic blood pressure 144 mm[Hg] BART LYNETTE [employer] INSTALLER HELPER-PATIENT FINANCIAL SERVICES MANAGER [facility] 12-03-2021 15:24-0500 Body temperature 98.78 [degF] BART SARAVIAELY [employer] INSTALLER HELPER-PATIENT FINANCIAL SERVICES MANAGER [facility] 12-03-2021 15:24-0500 Diastolic blood pressure 75 mm[Hg] BART SARAVIAELY [employer] INSTALLER HELPER-PATIENT FINANCIAL SERVICES MANAGER [facility] 12-03-2021 15:24-0500 Heart rate 92 /min BART SARAVIAELY [employer] INSTALLER HELPER-PATIENT FINANCIAL SERVICES MANAGER [facility] 12-03-2021 15:24-0500 Reason For Taking VItal Signs BART OJEDA [employer] INSTALLER HELPER-PATIENT FINANCIAL SERVICES MANAGER [facility] 12-03-2021 15:24-0500 Respiratory rate 18 /min BART SARAVIAELY [employer] INSTALLER HELPER-PATIENT FINANCIAL SERVICES MANAGER [facility] 12-03-2021 15:24-0500 Systolic blood pressure 136 mm[Hg] BART LYNETTE [employer] INSTALLER HELPER-PATIENT FINANCIAL SERVICES MANAGER [facility] 12-03-2021 06:57-0500 Body temperature 97.7 [degF] BART SARAVIAELY [employer] INSTALLER HELPER-PATIENT FINANCIAL SERVICES MANAGER [facility] 12-03-2021 06:57-0500 Diastolic blood pressure 90 mm[Hg] BART LYNETTE [employer] INSTALLER HELPER-PATIENT FINANCIAL SERVICES MANAGER [facility] 12-03-2021 06:57-0500 Heart rate 60 /min BART SARAVIAELY [employer] INSTALLER HELPER-PATIENT FINANCIAL SERVICES MANAGER [facility] 12-03-2021 06:57-0500 Reason For Taking VItal Signs BART SARAVIAELY [employer] INSTALLER HELPER-PATIENT FINANCIAL SERVICES MANAGER [facility] 12-03-2021 06:57-0500 Respiratory rate 18 /min BART SARAVIAELY [employer] INSTALLER HELPER-PATIENT FINANCIAL SERVICES MANAGER [facility] 12-03-2021 06:57-0500 Systolic blood pressure 157 mm[Hg] BART SARAVIAELY [employer] INSTALLER HELPER-PATIENT FINANCIAL SERVICES MANAGER [facility] 12-03-2021 03:50-0500 Heart rate 58 /min BART SARAVIAELY [employer] INSTALLER HELPER-PATIENT FINANCIAL SERVICES MANAGER [facility] 12-03-2021 03:50-0500 Mean blood pressure 86 mm[Hg] BART SARAVIAELY [employer] INSTALLER HELPER-PATIENT FINANCIAL SERVICES MANAGER [facility] 12-03-2021 00:05-0500 Body height 180.3 cm BART SARAVIAELY [employer] INSTALLER HELPER-PATIENT FINANCIAL SERVICES MANAGER [facility] 12-03-2021 00:05-0500 Body weight 77.27 kg BART SARAVIAELY [employer] INST[employer]ER HELPER-PATIENT FINANCIAL SERVICES MANAGER [facility] 12-03-2021 00:05-0500 Body weight 23.77 kg/m2 BART LYNETTE [employer] INSTALLER HELPER-PATIENT FINANCIAL SERVICES MANAGER [facility] 12-02-2021 23:50-0500 Body height 180.3 cm BART LYNETTE [employer] INSTALLER HELPER-PATIENT FINANCIAL SERVICES MANAGER [facility] 12-02-2021 23:50-0500 Body weight 77.27 kg BART SARAVIAELY [employer] INSTALLER HELPER-PATIENT FINANCIAL SERVICES MANAGER [facility] 12-02-2021 23:50-0500 Body weight 23.77 kg/m2 BART LYNETTE [employer] INSTALLER HELPER-PATIENT FINANCIAL SERVICES MANAGER [facility] 12-02-2021 23:44-0500 Heart rate 69 /min BART LYNETTE [employer] INSTALLER HELPER-PATIENT FINANCIAL SERVICES MANAGER [facility] 12-02-2021 23:26-0500 Heart rate 72 /min BART LYNETTE [employer] INSTALLER HELPER-PATIENT FINANCIAL SERVICES MANAGER [facility] 12-02-2021 23:26-0500 Mean blood pressure 115 mm[Hg] BART LYNETTE [employer] INSTALLER HELPER-PATIENT FINANCIAL SERVICES MANAGER [facility] 12-02-2021 21:35-0500 Heart rate 72 /min BART LYNETTE [employer] INSTALLER HELPER-PATIENT FINANCIAL SERVICES MANAGER [facility] 12-02-2021 21:35-0500 Mean blood pressure 123 mm[Hg] BART LYNETTE [employer] INSTALLER HELPER-PATIENT FINANCIAL SERVICES MANAGER [facility] 12-02-2021 10:36-0500 Body temperature 98.6 [degF] KERRY PETERSEN DO [facility] 12-02-2021 10:36-0500 Diastolic blood pressure 106 mm[Hg] KERRY PETERSEN DO [facility] 12-02-2021 10:36-0500 Heart rate 80 /min KERRY PETERSEN DO [facility] 12-02-2021 10:36-0500 Respiratory rate 20 /min KERRY PETERSEN DO [facility] 12-02-2021 10:36-0500 Systolic blood pressure 163 mm[Hg] KERRY PETERSEN DO [facility] 10-06-2021 13:29-0500 Body temperature 98.42 [degF] MICHAEL PURI MD [facility] 10-06-2021 13:29-0500 Diastolic blood pressure 104 mm[Hg] MICHAEL PURI MD [facility] 10-06-2021 13:29-0500 Heart rate 77 /min MICHAEL PURI MD [facility] 10-06-2021 13:29-0500 Respiratory rate 18 /min MICHAEL PURI MD [facility] 10-06-2021 13:29-0500 Systolic blood pressure 167 mm[Hg] MICHAEL PURI MD [facility] 09-02-2021 10:13-0500 Body temperature 98.6 [degF] PK RUTLEDGE MD [facility] 09-02-2021 10:13-0500 Diastolic blood pressure 91 mm[Hg] PK RUTLEDGE MD [facility] 09-02-2021 10:13-0500 Heart rate 68 /min PK RUTLEDGE MD [facility] 09-02-2021 10:13-0500 Respiratory rate 18 /min PK RUTLEDGE MD [facility] 09-02-2021 10:13-0500 Systolic blood pressure 132 mm[Hg] PK RUTLEDGE MD [facility] 04-01-2020 05:31-0400 Body Temperature 97.2 [degF] [facility] 04-01-2020 05:31-0400 BP Diastolic 70 mm[Hg] [facility] , [place] 04-01-2020 05:31-0400 BP Systolic 108 mm[Hg] [facility] , [place] 04-01-2020 05:31-0400 Pulse (Heart Rate) 51 /min [facility] 04-01-2020 05:31-0400 Pulse Oximetry 98 % [facility] , [place] 04-01-2020 05:31-0400 Respiratory Rate 18 /min [facility] 03-31-2020 01:55-0400 BMI (Body Mass Index) 22.57 kg/m2 [facility] 03-31-2020 01:55-0400 Body weight 73.39 kg [facility] , [place] 09-29-2019 09:09-0500 BP Diastolic 97 mm[Hg] [facility], [place] 09-29-2019 09:09-0500 BP Systolic 140 mm[Hg] [facility] [place], [place] 09-29-2019 09:09-0500 Pulse (Heart Rate) 54 /min Jian Griffin [facility], [place] 09-29-2019 09:09-0500 Pulse Oximetry 100 % [facility] [place] 09-29-2019 09:09-0500 Respiratory Rate 16 /min [facility] [place] 09-29-2019 08:51-0500 Body Temperature 97.5 [degF] [facility] [place] 09-29-2019 06:55-0500 BMI (Body Mass Index) 23.01 kg/m2 Jian Griffin [facility], [place] 09-29-2019 06:55-0500 Body weight 74.84 kg [facility] [place] 09-29-2019 06:55-0500 Height 180.3 cm [facility] [place] 09-14-2019 11:00-0500 Body Temperature 98.91 [degF] [facility] [place] [facility]-2019 11:00-0500 BP Diastolic 93 mm[Hg] [facility] [place] 09-14-2019 11:00-0500 BP Systolic 129 mm[Hg] [facility] [place] 09-14-2019 11:00-0500 Pulse (Heart Rate) 71 /min [facility] [place] 09-14-2019 11:00-0500 Pulse Oximetry 99 % [facility] [place] 09-14-2019 11:00-0500 Respiratory Rate 18 /min [facility] [place] 09-14-2019 06:17-0500 BMI (Body Mass Index) 23.01 kg/m2 Douglas Morataya [facility], [place] 09-14-2019 06:17-0500 Body weight 74.84 kg [facility] [place] 09-14-2019 06:17-0500 Height 180.3 cm Douglas Morataya [facility] , [place] 07-14-2019 06:58-0400 Body Temperature 98.1 [degF] [facility], [place] 07-14-2019 06:58-0400 BP Diastolic 82 mm[Hg] [place], [place] 07-14-2019 06:58-0400 BP Systolic 117 mm[Hg] [place] 07-14-2019 06:58-0400 Pulse (Heart Rate) 68 /min [place] 07-14-2019 06:58-0400 Pulse Oximetry 97 % [place] 07-14-2019 06:58-0400 Respiratory Rate 20 /min [place], [place] 07-13-2019 14:10-0400 Height 180.3 cm [place] 07-10-2019 10:09-0400 BMI (Body Mass Index) 20.92 kg/m2 [facility], [place] 07-10-2019 10:09-0400 Body weight 68.04 kg [place] Encounters Encounter Date Encounter Type Care Provider Facility Start: 10-14-2023 ambulatory SHAMA VENTURA DO Faci lity:B Start: 10-14-2023 Encounter for genera l adult medical examination without abnormal findings SHAMA VENTURA DO Facility:B Start: 08-07-2023 End: 08-08-2023 ambulatory SHAMA VENTURA DO Facility:B Start: 08-07-2023 End: 08-07-2023 Patient encounter procedure SHAMA VENTURA DO [facility] Start: 06-02-2023 End: 06-03-2023 ambulatory SHAMA VENTURA DO Facility:B Start: 10-30-2022 End: 11-04-[address] JUSTICE SIDHU MD Facility:B Start: 10-30-2022 End: 11-03-[address] JUSTICE SIDHU MD [facility] Start: 10-14-2022 End: 10-14-2022 Patient encounter procedure SHAMA VENTURA DO [facility] Start: 10-09-2022 Chart Update Nia Lares MD Work Phone: CK-Szubrdnzewyubdqk-Jc stlake S[facility] 450 DO Work Phone: Start: 06-24-2022 AUDIT Albania Mcneill Work Phone: UM-Uumdpiw-Wvgx MOB[facility] [place] Work Phone: Start: 03-18-2022 Office outpatient vi sit 25 minutes Paulie Torres MD Work Phone: GF-Nshjyksdyj-Adzhiuej Work Phone: Start: 01-21-2022 End: 01-21-2022 Patient encounter procedure ROSIBEL SMITH MD [facility] Start: 12-27-2021 AUDIT Nia Lares MD Work Phone: OD-Djuvxygxavubvbxb-Rj stlake SJW 450 DO Work Phone: Start: 12-26-2021 AUDIT Nia Lares MD Work Phone: WZ-Hdtwycwbzaueaufe-Hh stlake SJW 450 DO Work Phone: Start: 12-02-2021 End: 12-03-2021 Observation BART OJEDA APRN-PATIENT FINANCIAL SERVICES MANAGER [facility] Start: 12-02-2021 End: 12-02-2021 Emergency department patient visit KERRY PETERSEN DO [facility] Start: 10-06-2021 End: 10-06-2021 Emergency department patient visit MICHAEL PURI MD [facility] Start: 09-02-2021 End: 09-02-2021 Emergency department patient visit PK RUTLEDGE MD [facility] Start: 03-31-2020 End: 04-01-2020 Evaluation and management of inpatient Michael Cedric Work Phone: [facility] Procedures Date Procedure Procedure Detail Performing Clinician Start: 10-16-[address] GLEN SIDHU MD Plan of Treatment Date Care Activity Detail Author Start: 10-13-2024 Lipid panel Lipid screen [place], [place] Start: 03-19-2024 Lipid screen Lipid screen [place] Start: 08-18-2023 DTaP/Tdap/Td vaccine (2 - Td) DTaP/Tdap/Td vaccine (2 - Td) [place] Start: 01-24-2022 EUSANS, Provider: Nia Lares, Status: Pen, Time: 10:30 AM EUSANS, Provider: Nia Lares, Status: Pen, Time: 10:30 AM FD-Afshmipkchmfajtn-D petrona SJW 450 DO Work Phone: Start: 06-27-2020 Influenza vaccination Flu vaccine (Season Ended) [place], [place] Start: 10-07-2019 End: 10-07-2019 Office Visit 10/07/2019 Office Visit Gastroenterology Jian Wheeler MD [address] [place] [address], [address] [place] [address] [phone] [facility] Start: 10-01-2019 End: 10-01-2019 Office Visit 10/01/2019 Office Visit General Surgery Douglas Morataya MD [address] [place] [address] [phone] [facility] Start: 08-19-2019 End: 08-19-2019 Office Visit 08/19/2019 Office Visit Gastroenterology Jian Wheeler MD [address] [place] [address], [address] [place] [address] [phone] [facility] Start: 06-27-2019 Influenza vaccination Flu vaccine (#1) [place], [place] Start: 2010 Colon cancer screen colonoscopy Colon cancer screen colonoscopy [place], [place] Start: 2010 Screening for malignant neoplasm of colon Colon cancer screen colonoscopy [place] Start: 2010 Shingles Vaccine (1 of 2) Shingles Vaccine (1 of 2) [place] End: 04-02-2020 Basic Metabolic Panel w/ Reflex to MG Basic Metabolic Panel w/ Reflex to MG Lab Routine Tomorrow AM for 3 Occurrences starting 03/31/2020 until 04/02/2020, 2 completed [place], [place] Immunizations Immunization Date Immunization Notes Care Provider [facility] 04-09-2021 COVID-19, mRNA, LNP- S, PF, 100 mcg/ 0.5 mL dose; Translations: [Moderna COVID-19 Vaccine] PK RUTLEDGE MD [facility] 03-12-2021 COVID-19, mRNA, LNP- S, PF, 100 mcg/ 0.5 mL dose; Translations: [Moderna COVID-19 Vaccine] PK RUTLEDGE MD [facility] 09-14-2020 influenza, injectabl e, quadrivalent, preservative free; Translations: [Fluarix PF Quadrivalent ] PK RUTLEDGE MD [facility] 08-10-2015 influenza virus vacc ine, unspecified formulation PK RUTLEDGE MD [facility] 08-10-2015 influenza, injectabl e, quadrivalent, preservative free Paulie Torres MD Work Phone: SZ-Faiwzkbnih-Nzjz lawn Work Phone: 07-27-2015 influenza virus vacc ine, unspecified formulation PK RUTLEDGE MD [facility] 07-27-2015 influenza, seasonal, injectable Paulie Torres MD Work Phone: JD-Lclijoufax-Wifb lawn Work Phone: 11-01-2014 pneumococcal polysaccharide vaccine, 23 valent PK RUTLEDGE MD [facility] 08-18-2013 tetanus toxoid, redu arely diphtheria toxoid, and acellular pertussis vaccine, adsorbed PK RUTLEDGE MD [facility] Payers Date Payer Category Payer Unknown [id number] 2017 Unknown xxxxxxxxxxxx [id number] 1960 Unknown [id number] 1960 Unknown [id number] 1960 Unknown [id number] [id number] 1960 Unknown [id number] Unknown Social History Date Type Detail Facility Start: 07-12-2019 End: 07-22-2019 Tobacco smoking status UTIS Former smoker [place], [place] Clinical Notes 03-18-2019 to 11-01-2022 Note Date & Type Note Facility 11-01-2022 Note AO [id number] [facility] 10-31-2022 Note AO [id number] [facility] 10-31-2022 Note AO [id number] [facility] 10-31-2022 Note AO [id number] [facility] 10-31-2022 Note AO [id number] [facility] 10-31-2022 Note [facility] [id number] [facility] 12-03-2021 Hospital Discharg e instructions Patient Education 12/03/2021 17:16:25 Chronic Pancreatitis Chronic Pancreatitis Chronic pancreatitis is long-lasting inflammation and scarring of the pancreas. The pancreas is a gland that is located behind the stomach. It makes enzymes that help to digest food. The pancreas also releases hormones called glucagon and insulin, which help regulate blood sugar (glucose). Damage to the pancreas may affect digestion, cause pain in the upper abdomen and back, and cause diabetes. Inflammation can also irritate other organs in the abdomen near the pancreas. At first, pancreatitis may be sudden (acute). If you have several or prolonged episodes of acute pancreatitis, the condition can turn into chronic pancreatitis. What are the causes? The most common cause of this condition is alcohol abuse. Other causes include: High (elevated) levels of triglycerides in the blood (hypertriglyceridemia). Gallstones or other conditions that can block the tube that drains the pancreas (pancreatic duct). Pancreatic cancer. Cystic fibrosis. Too much calcium in the blood (hypercalcemia), which may be caused by an overactive parathyroid gland (hyperparathyroidism). Certain medicines. Injury to the pancreas. Infection. Autoimmune pancreatitis. This is when the body's disease-fighting (immune) system attacks the pancreas. Genes that are passed from parent to child (inherited). In some cases, the cause may not be known. What increases the risk? This condition is more likely to develop in: Men. People who are 35 55 years old. People who have a family history of pancreatitis. People who smoke tobacco. People who drink large amounts of alcohol over a long period of time. What are the signs or symptoms? Symptoms of this condition may include: Pain in the abdomen or upper back. Pain may get worse after eating. Nausea and vomiting. Fever. Weight loss. A change in the color and consistency of bowel movements, such as stools that are oily, fatty, or arik-colored. How is this diagnosed? This condition is diagnosed based on your symptoms, your medical history, and a physical exam. You may have tests, such as: Blood tests. Stool samples. Biopsy of the pancreas. This is the removal of a small amount of pancreas tissue to be tested in a lab. Imaging tests, such as: ?X-rays. ?CT scan. ?MRI. ?Ultrasound. How is this treated? You may need to be treated at a hospital. Treatment may involve: Resting the pancreas. You may need to stop eating and drinking for a few days to give your pancreas time to recover. During this time, you will be given IV fluids to keep you hydrated. Controlling pain. You may be given pain medicines by mouth (orally) or as injections. Improving digestion. You may be given: ?Medicines to replace your pancreatic enzymes. ?Vitamin supplements. ?A specific diet to follow. You may work with a diet and sustainable agriculture specialist (dietitian) to make an eating plan. Surgery to: ?Clear the pancreatic ducts of any blockages, such as gallstones. ?Remove any fluid or damaged tissue from the pancreas. Other treatments may include: Preventing diabetes. Your health care provider may recommend that you: ?Get regular screening tests for diabetes. ?Monitor your blood glucose regularly. Lifestyle changes, such as stopping alcohol use. Steroid medicines, if your condition is caused by your immune system attacking your body's own tissues (autoimmune disease). Follow these instructions at home: Eating and drinking Do not drink alcohol. If you need help quitting, ask your health care provider. Follow a diet as told by your health care provider or dietitian, if this applies. This may include: ?Limiting how much fat you eat. ?Eating smaller meals more often. ?Avoiding caffeine. Drink enough fluid to keep your urine pale yellow. General instructions Take hakz-fmw-bmiingg and prescription medicines only as told by your health care provider. These include vitamin supplements. Do not drive or use heavy machinery while taking prescription pain medicine. If you are taking prescription pain medicine, take actions to prevent or treat constipation. Your health care provider may recommend that you: ?Take an ukfp-abp-biedwvx or prescription medicine for constipation. ?Eat foods that are high in fiber such as whole grains and beans. ?Limit foods that are high in fat and processed sugars, such as fried or sweet foods. Do not use any products that contain nicotine or tobacco, such as cigarettes and e-cigarettes. If you need help quitting, ask your health care provider. If recommended by your health care provider, monitor your blood glucose at home. Keep all follow-up visits as told by your health care provider. This is important. Contact a health care provider if: You have pain that does not get better with medicine. You have a fever. You have sudden weight loss. Get help right away if: Your pain suddenly gets worse. You have sudden swelling in your abdomen. You start to vomit often. You vomit blood. You have diarrhea that does not go away. You have blood in your stool. You become confused or you have trouble thinking clearly. Summary Chronic pancreatitis is long-lasting inflammation and scarring of the pancreas. Damage to the pancreas may affect digestion, cause pain in the upper abdomen and back, and cause diabetes. Inflammation can also irritate other organs in the abdomen near the pancreas. Common causes of this condition are alcohol abuse, gallstones, high (elevated) levels of triglycerides, and certain medicines. This condition is sometimes treated at a hospital and may involve resting the pancreas, controlling pain, replacing enzymes, and avoiding alcohol. This information is not intended to replace advice given to you by your health care provider. Make sure you discuss any questions you have with your health care provider. Document Released: 11/08/2016 Document Revised: 08/02/2019 Document Reviewed: 06/12/2018 [employer] Patient Education 2020 [employer]. 12/03/2021 17:16:11 Acute Pancreatitis, Axay-kv-Krzs Acute Pancreatitis Acute pancreatitis happens when the pancreas gets swollen. The pancreas is a large gland in the body that helps to control blood sugar. It also makes enzymes that help to digest food. This condition can last a few days and cause serious problems. The lungs, heart, and kidneys may stop working. What are the causes? Causes include: Alcohol abuse. Drug abuse. Gallstones. A tumor in the pancreas. Other causes include: Some medicines. Some chemicals. Diabetes. An infection. Damage caused by an accident. The poison (venom) from a scorpion bite. Belly (abdominal) surgery. The body's defense system (immune system) attacking the pancreas (autoimmune pancreatitis). Genes that are passed from parent to child (inherited). In some cases, the cause is not known. What are the signs or symptoms? Pain in the upper belly that may be felt in the back. The pain may be very bad. Swelling of the belly. Feeling sick to your stomach (nauseous) and throwing up (vomiting). Fever. How is this treated? You will likely have to stay in the hospital. Treatment may include: Pain medicine. Fluid through an IV tube. Placing a tube in the stomach to take out the stomach contents. This may help you stop throwing up. Not eating for 3 4 days. Antibiotic medicines, if you have an infection. Treating any other problems that may be the cause. Steroid medicines, if your problem is caused by your defense system attacking your body's own tissues. Surgery. Follow these instructions at home: Eating and drinking Follow instructions from your doctor about what to eat and drink. Eat foods that do not have a lot of fat in them. Eat small meals often. Do not eat big meals. Drink enough fluid to keep your pee (urine) pale yellow. Do not drink alcohol if it caused your condition. Medicines Take kavq-yxa-ypuvkzw and prescription medicines only as told by your doctor. Ask your doctor if the medicine prescribed to you: ?Requires you to avoid driving or using heavy machinery. ?Can cause trouble pooping (constipation). You may need to take steps to prevent or treat trouble pooping: ?Take huno-xfx-rwequhj or prescription medicines. ?Eat foods that are high in fiber. These include beans, whole grains, and fresh fruits and vegetables. ?Limit foods that are high in fat and sugar. These include fried or sweet foods. General instructions Do not use any products that contain nicotine or tobacco, such as cigarettes, e-cigarettes, and chewing tobacco. If you need help quitting, ask your doctor. Get plenty of rest. Check your blood sugar at home as told by your doctor. Keep all follow-up visits as told by your doctor. This is important. Contact a doctor if: You do not get better as quickly as expected. You have new symptoms. Your symptoms get worse. You have pain or weakness that lasts a long time. You keep feeling sick to your stomach. You get better and then you have pain again. You have a fever. Get help right away if: You cannot eat or keep fluids down. Your pain gets very bad. Your skin or the white part of your eyes turns yellow. You have sudden swelling in your belly. You throw up. You feel dizzy or you pass out (faint). Your blood sugar is high (over 300 mg/dL). Summary Acute pancreatitis happens when the pancreas gets swollen. This condition is often caused by alcohol abuse, drug abuse, or gallstones. You will likely have to stay in the hospital for treatment. This information is not intended to replace advice given to you by your health care provider. Make sure you discuss any questions you have with your health care provider. Document Released: 03/31/2009 Document Revised: 08/02/2019 Document Reviewed: 08/02/2019 [employer] Patient Education 2020 [facility] Follow Up Care 12/02/2021 21:23:03 With:EMILY COLE MD Address: [id number] When:5 to 7 days With:ROSIBEL SMITH MD Address: [address] [facility] [place] [address]- When:12/07/2021 13:15:00 Comments:Follow-up as scheduled [facility] 1. Acute on chronic pancreat itis 2. Anxiety Ordered: LORazepam, Start: 12/03/21 10:00:00 EST, Dose = 0.5 mg, = 1 tab(s), Oral, BID, PRN, Anxiety, 0 3. Hyperlipidemia Acute on chronic pancreatitis resolved. Patient has no further nausea, vomiting, pain. Patient was due for outpatient MRI to be completed today. 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 Will obtain MRI of the pancreas for further evaluation. Patient has been given the option to follow-up with or be evaluated for a 2nd opinion by another autopsy pathologist. Anxiety continue home dose of as needed lorazepam for anxiety. Patient is quite depressed. He has been prescribed sertraline in the past but has not been utilizing this. He did speak with our senior manager this morning with some improvement in his anxiety. Patient is still grieving the loss of his brother and father who close to each other last year at this time. Patient is worried about his own health and financial situation. Hyperlipidemia patient is somewhat resistant to utilizing statin. Continue to encourage and educate patient. Labs, diagnostics, and progress notes reviewed as noted in HPI Code Status: Full code Plan of care discussed with patient. All questions answered. Patient verbalizes understanding is agreeable to plan of care. Discussed with collaborating physician, Dr. Velázquez This dictation was performed using voice recognition software and may include grammatical and/or spelling errors. Future Appointments Appointment Date:12/07/2021 01:15:00 PM Scheduled Provider:ROSIBEL SMITH MD Location:[facility] Appointment Type:[facility] Hospital Follow-Up Appointment Date:01/17/2022 02:00:00 PM Scheduled Provider:ROSIBEL SMITH MD Location:[facility] Appointment Type:[facility] Future Scheduled Tests Radiology* MRI MRCP 11/26/21 [facility] 02-06-2022 Hospital Discharge instructions Patient Education 12/02/2021 11:33:36 Understanding Pancreatitis Understanding Pancreatitis If your pancreas suddenly becomes irritated or inflamed, you have acute pancreatitis. Acute pancreatitis is often very painful. Emergency medical treatment is usually needed. Chronic pancreatitis is a condition where your pancreas remains inflamed. It can lead to pain and other complications. Symptoms of acute pancreatitis Symptoms include the following: Severe pain in your upper belly radiating to your back Nausea and vomiting Belly swelling and tenderness Fever Rapid pulse Shallow, fast breathing Treating acute pancreatitis If you have acute pancreatitis, you may be in the hospital for a few days. For part of this time, you likely won t be allowed to eat or drink. This lets your pancreas rest and heal. If your pancreatitis is severe, you will not be able to eat and drink and you may receive nutrition and fluids through a feeding tube inserted into your belly. Medicines are given to help ease any pain. Causes of pancreatitis Gallstones are one of the most common causes of pancreatitis. These hard stones form in the gallbladder, an organ located near the pancreas. These two organs share a passage into the small intestine called the common bile duct. Fluid can't leave the pancreas, though, if gallstones block this duct. The fluid backs up and causes pancreatitis. Alcohol is also an extremely common cause of pancreatitis. Certain medicines, trauma, and infection can also cause pancreatitis. Problems with the structureof the pancreas may also be a cause. There are also genetic problems that can cause pancreatitis. If you have chronic pancreatitis If the pancreas stays inflamed for a long time, chronic pancreatitis may result. Common symptoms include diarrhea, weight loss, and belly pain. Possible complications of chronic pancreatitis include the following: Diabetes Malnutrition (not absorbing enough nutrients) Pancreatic cancer (rare) Chronic diarrhea Chronic pain Treatment for chronic pancreatitis includes the following: Medicines to help the pancreas work (enzymes) and to manage pain Dietary changes Stop smoking Treatment for gallstones Avoiding alcohol. It cannot be stressed enough how important it is to avoid alcohol and smoking to help manage this disease. [id number] [employer]. [address] [place] [address]. All rights reserved. This information is not intended as a substitute for professional medical care. Always follow yourhealthcare professional's instructions. Follow Up Care 12/02/2021 10:31:54 With:EMILY COLE MD Address: [phone] When:2-4 days [facility] 01-31-2022 Evaluation + Plan note Future Scheduled Tests Radiology* MRI MRCP 11/26/21 [facility] 12-11-2021 Hospital Discharge instructions Patient Education 10/06/2021 16:06:20 Gastroenteritis, Viral (Adult) Viral Gastroenteritis (Adult) Gastroenteritis is commonly called the stomach flu, although it has nothing to do with influenza.It is most often caused by a virus that affects the stomach and intestinal tract and usually lasts from 2 to 7 days. Common viruses causing gastroenteritis include norovirus, rotavirus, and hepatitisA. Non-viral causes of gastroenteritis include bacteria, parasites, and toxins. The danger from repeated vomiting or diarrhea is dehydration. This is the loss of too much fluid from the body. When this occurs, body fluids must be replaced. Antibiotics don't help with this illness because it is usually viral. Simple home treatment will be helpful. Symptoms of viral gastroenteritis may include: Watery, loose stools Stomach pain or abdominal cramps Fever and chills Nausea and vomiting Loss of bowel control Headache Home care Gastroenteritis is transmitted by contact with the stool or vomit of an infected person. This can occur from person to person or from contact with a contaminated surface. Follow these guidelines when caring for yourself at home: If symptoms are severe, rest at home for the next 24 hours or until you are feeling better. Wash your hands with soap and water or use alcohol-based emergency crew supervisor to prevent the spread of infection. Wash your hands after touching anyone who is sick. Wash your hands or use alcohol-based emergency crew supervisor after using the toilet and before meals. Clean the toilet after each use. Remember these tips when preparing food: People with diarrhea should not prepare or serve food to others. When preparing foods, wash your hands before and after. Wash your hands after using cutting boards, countertops, knives, or utensils that have been in contact with raw food. Dry your hands with a single use towel. Keep uncooked meats away from cooked and zbysn-ve-bpy foods. Medicine You may use acetaminophen or NSAID medicines like ibuprofen or naproxen to control fever unless another medicine was given. If you have chronic liver or kidney disease, talk with your healthcare provider before using these medicines. Also talk with your provider if you've had a stomach ulcer or gastrointestinal bleeding. Don't give aspirin to anyone under 18 years of age who is ill with a fever. It may cause severe liver damage. Don't use NSAIDS is you are already taking one for another condition (like arthritis) or are on aspirin (such as for heart disease or after a stroke). If medicine for vomiting or diarrhea are prescribed, take these only as directed. Nausea and diarrhea medicines are generally OK unless you have bleeding, fever, or severe abdominal pain. Diet Follow these guidelines for food: Water and liquids are important so you don't get dehydrated. Drink a small amount at a time or suckon ice chips if you are vomiting. If you eat, avoid fatty, greasy, spicy, or fried foods. Don't eat dairy if you have diarrhea. This can make diarrhea worse. Avoid tobacco, alcohol, and caffeine which may worsen symptoms. During the first 24 hours (the first full day), follow the diet below: Beverages. Sports drinks, soft drinks without caffeine, marichuy isabella, mineral water (plain or flavored), decaffeinated tea and coffee. If you are very dehydrated, sports drinks aren't a good choice. They have too much sugar and not enough electrolytes. In this case, commercially available products called oral rehydration solutions, are best. Soups. Eat clear broth, consomm , and bouillon. Desserts. Eat gelatin, ice pops, and fruit juice bars. During the next 24 hours (the second day), you may add the following to the above: Hot cereal, plain toast, bread, rolls, and crackers Plain noodles, rice, mashed potatoes, chicken noodle or rice soup Unsweetened canned fruit (avoid pineapple), bananas Limit fat intake to less than 15 grams per day. Do this by avoiding margarine, butter, oils, mayonnaise, sauces, gravies, fried foods, peanut butter, meat, poultry, and fish. Limit fiber and avoid raw or cooked vegetables, fresh fruits (except bananas), and bran cereals. Limit caffeine and chocolate. Don't use spices or seasonings other than salt. Limit dairy products. Avoid alcohol. During the next 24 hours: Gradually resume a normal diet as you feel better and your symptoms improve. If at any time it starts getting worse again, go back to clear liquids until you feel better. Follow-up care Follow up with your healthcare provider, or as advised. Call your provider if you don't get better within 24 hours or if diarrhea lasts more than a week. Also follow up if you are unable to keep downliquids and get dehydrated. If a stool (diarrhea) sample was taken, call as directed for the results. Call 911 Call 911 if any of these occur: Trouble breathing Chest pain Confused Severe drowsiness or trouble awakening Fainting or loss of consciousness Rapid heart rate Seizure Stiff neck When to seek medical advice Call your healthcare provider right away if any of these occur: Abdominal pain that gets worse Continued vomiting (unable to keep liquids down) Frequent diarrhea (more than 5 times a day) Blood in vomit or stool (black or red color) Dark urine, reduced urine output, or extreme thirst Weakness or dizziness Drowsiness Fever of 100.4 F (38 C) or higher, or as directed by your healthcare provider Javon story [id number] [employer]. [address] [place] [address], [place] [address]. All rights reserved. This information is not intended as a substitute for professional medical care. Always follow yourhealthcare professional's instructions. 10/06/2021 16:06:19 Diarrhea, Unknown Cause Diarrhea with Uncertain Cause (Adult) Diarrhea is when stools are loose and watery. This can be caused by: Viral infections Bacterial infections Food poisoning Parasites Irritable bowel syndrome (IBS) Inflammatory bowel diseases such as ulcerative colitis, Crohn's disease, and celiac disease Food intolerance, such as to lactose, the sugar found in milk and milk products Reaction to medicines like antibiotics, laxatives, cancer drugs, and antacids Along with diarrhea, you may also have: Abdominal pain and cramping Nausea and vomiting Loss of bowel control Fever and chills Bloody stools In some cases, antibiotics may help to treat diarrhea. You may have a stool sample test. This is done to see what is causing your diarrhea, and if antibiotics will help treat it. The results of a stool sample test may take up to 2 days. The healthcare provider may not give you antibiotics until he or she has the stool test results. Diarrhea can cause dehydration. This is the loss of too much water and other fluids from the body. When this occurs, body fluid must be replaced. This can be done with oral rehydration solutions. Oral rehydration solutions are available at drugstores and grocery stores without a prescription. Sports drinks are not the best choice if you are very dehydrated. They have too much sugar and not enoughelectrolytes. Home care Follow all instructions given by your healthcare provider. Rest at home for the next 24 hours, or until you feel better. Avoid caffeine, tobacco, and alcohol. These can make diarrhea, cramping, and pain worse. If taking medicines: Ktdm-wbi-xuogzcy nausea and diarrhea medicines are generally OK unless you experience fever or blood stool. Check with your doctor first in those circumstances. You may use acetaminophen or NSAID medicines like ibuprofen or naproxen to reduce pain and fever. Don t use these if you have chronic liver or kidney disease, or ever had a stomach ulcer or gastrointestinal bleeding. Don't use NSAID medicines if you are already taking one for another condition (like arthritis) or are on daily aspirin therapy (such as for heart disease or after a stroke). Talk with your healthcare provider first. If antibiotics were prescribed, be sure you take them until they are finished. Don t stop taking them even when you feel better. Antibiotics must be taken as a full course. To prevent the spread of illness: Remember that washing with soap and water and using alcohol-based emergency crew supervisor is the best way to prevent the spread of infection. Dry your hands with a single use towel (like a paper towel). Clean the toilet after each use. Wash your hands before eating. Wash your hands before and after preparing food. Keep in mind that people with diarrhea or vomitingshould not prepare food for others. Wash your hands after using cutting boards, countertops, and knives that have been in contact with raw foods. Wash and then peel fruits and vegetables. Keep uncooked meats away from cooked and zasyd-hz-tqf foods. Use a food thermometer when cooking. Cook poultry to at least 165 F (74 C). Cook ground meat (beef,veal, pork, bryson) to at least 160 F (71 C). Cook fresh beef, veal, bryson, and pork to at least 145 F(63 C). Don t eat raw or undercooked eggs (poached or toña side up), poultry, meat, or unpasteurized milk and juices. Food and drinks The main goal while treating vomiting or diarrhea is to prevent dehydration. This is done by takingsmall amounts of liquids often. Keep in mind that liquids are more important than food right now. Drink only small amounts of liquids at a time. Don t force yourself to eat, especially if you are having cramping, vomiting, or diarrhea. Don t eat large amounts at a time, even if you are hungry. If you eat, avoid fatty, greasy, spicy, or fried foods. Don t eat dairy foods or drink milk if you have diarrhea. These can make diarrhea worse. During the first 24 hours you can try: Oral rehydration solutions. Sports drinks may be used if you are not too dehydrated and are otherwise healthy. Soft drinks without caffeine Marichuy isabella Water (plain or flavored) Decaf tea or coffee Clear broth, consomm , or bouillon Gelatin, popsicles, or frozen fruit juice bars The second 24 hours, if you are feeling better, you can add: Hot cereal, plain toast, bread, rolls, or crackers Plain noodles, rice, mashed potatoes, chicken noodle soup, or rice soup Unsweetened canned fruit (no pineapple) Bananas As you recover: Limit fat intake to less than 15 grams per day. Don t eat margarine, butter, oils, mayonnaise, sauces, gravies, fried foods, peanut butter, meat, poultry, or fish. Limit fiber. Don t eat raw or cooked vegetables, fresh fruits except bananas, or bran cereals. Limit caffeine and chocolate. Limit dairy. Don t use spices or seasonings except salt. Go back to your normal diet over time, as you feel better and your symptoms improve. If the symptoms come back, go back to a simple diet or clear liquids. Follow-up care Follow up with your healthcare provider, or as advised. If a stool sample was taken or cultures were done, call the healthcare provider for the results as instructed. Call 911 Call 911 if you have any of these symptoms: Trouble breathing Confusion Extreme drowsiness or trouble walking Loss of consciousness Rapid heart rate Chest pain Stiff neck Seizure When to seek medical advice Call your healthcare provider right away if any of these occur: Abdominal pain that gets worse Constant lower right abdominal pain Continued vomiting and inability to keep liquids down Diarrhea more than 5 times a day Blood in vomit or stool Dark urine or no urine for 8 hours, dry mouth and tongue, tiredness, weakness, or dizziness Drowsiness New rash You don t get better in 2 to 3 days Fever of 100.4 F (38 C) or higher, or as directed by your healthcare provider [phone] [employer]. [address] [place] [address], [place] [address]. All rights reserved. This information is not intended as a substitute for professional medical care. Always follow yourhealthcare professional's instructions. Follow Up Care 10/06/2021 13:16:36 With:ROSIBEL SMITH MD Address: [address] [place] [address] [place] [address]- When:2-4 days With:Go to emergency room if symptoms worsen Address:Unknown When:2-4 days [facility] Nathan Carlyn 11-07-2021 Hospital Discharge instructions Patient Education 09/02/2021 11:24:35 Pancreatitis Pancreatitis The pancreas is an organ in the abdomen that secretes digestive juices into the stomach. Pancreatitis is an inflammation of the pancreas. In many cases, it is caused when the duct that connects the pancreas and gallbladder is blocked by a gallstone. Heavy alcohol use is another major cause. Less common causes can include medicines, trauma, certain medical procedures, viruses, and toxins. Sometimes the cause of pancreatitis cannot be found. Genetic testing is sometimes done in those cases, especially if there is a family history of pancreas disease. Symptoms of pancreatitis include: Severe abdominal pain Nausea and vomiting Severe indigestion Racing heart Fever If the pancreatitis becomes chronic, diarrhea, chronic pain, weight loss, and poor nutrition can result. At first, pancreatitis may be treated in the hospital. It may be diagnosed by history, exam, blood tests, and sometimes imaging studies. There, fluids and medicines can be provided. The underlying cause of the problem must also be treated to prevent further problems. If gallstones are the cause, you and your healthcare provider can discuss options for treating them. This usually results in gallbladder surgery. Sometimes another test must be done to clear the drainage ducts of a blocked gallstones. If alcohol is the cause, talk with your healthcare provider about a program to help you stop drinking. Home care Don't drink alcohol. Rest in bed or sit up in a chair until you feel better. Take medicines as prescribed. If you were given an antibiotic for infection, take it until it is gone, even if you feel better. Let your healthcare provider know if you vomit up your medicine. Tips for eating and drinking: If instructed, avoid eating or drinking until nausea and vomiting go away. Try sipping clear liquids to prevent dehydration. When you begin eating again, start with small amounts. Have small, more frequent meals rather than larger meals. Low fat meals are best. Follow-up care Follow up with your healthcare provider as advised. When to seek medical advice Call your healthcare provider right away for any of the following: Continued or worsening pain Repeated vomiting Dizziness, weakness Fever of 100.4 F (38 C) or higher, or as directed by your healthcare provider Severe muscle cramps Call 911 Call 911 if you have any of the following: Vomiting blood or large amounts of blood in stool Seizure Loss of consciousness [phone] [employer]. [address] [place] [address], [place] [address]. All rights reserved. This information is not intended as a substitute for professional medical care. Always follow yourhealthcare professional's instructions. Follow Up Care 09/02/2021 10:07:33 With:EMILY COLE Address: [address] [facility] [address] [place] [address]- [phone] Business (1) When:2-4 days Comments:Follow-up as needed. With:ROSIBEL SMITH Address: [address] [facility] [place] [address]- Business (1) When:2-4 days Comments:Schedule appointment for follow-up.Richardson diet, avoid greasy, fatty, fried, spicy foods.Continue allroutine medications including hydrocodone for severe pain as needed.Return to the ED if symptoms worsen. [facility] 05-23-2019 History of Present illness Narrative* Mr. Tripathi is a 61-year-old male who is referred by Dr. Alberts ([facility]) to discuss surgical options for recurrent acute on chronic pancreatitis. * Patient reports recurrent episodes of acute pancreatitis starting 3 years ago. At that time, he [place]ospitalized in [place] and required care in the ICU. He indicates that at that time, he was drinkingmoderately and smoking tobacco. He quit both following that hospitalization and eventually had a laparoscopic cholecystectomy. * He saw Dr. Torres in clinic in 2019 to discuss surgical options. At that time, he was feeling well and surgery was not indicated. He was also noted to have occlusion of the SMV making surgery high-risk. * Today, he states he has been experiencing episodes of acute pancreatitis every few months. He relates these episodes to his diet (eating too much). During an episode, he will experience severe pressure-like epigastric pain with radiation to his back. He was last in the ED for acute pancreatitisin late January. He was not admitted. * His last hospitalization for acute pancreatitis was in November 2021. MRCP showed a dilated CBD, dilated PD and an ill-defined mass in the HOP. He underwent ERCP that demonstrated a biliary strictures/p biliary sphincterotomy, dilation and sweep. He states a biliary stent was unable to be placed. Cytology was negative for malignant cells. CA19-9 was normal at 3. * In December, he underwent EUS with Dr. Nia Lares. This demonstrated CBD of 9 mm without stricture/stones/sludge, parenchymal changes related to chronic pancreatitis with irregular PD and a round inflammatory mass-like region in the HOP measuring 32 mm x 25 mm s/p biopsy. Cytology showed no malignant c ells, biopsies with parenchymal tissue with no significant pathology findings. * Today, he feels well. He is not in pain. He denies chronic abdominal pain, nausea, vomiting or unintentional weight loss. He is taking Creon, 3 capsules with each meal. * Past medical history: Recurrent acute on chronic pancreatitis. He is not diabetic. * Surgical history: Lap CCY, appendectomy. * Family history: No GI malignancies. Mother had brain cancer. * Social history: Former smoker. Abstinent from alcohol. No illicits. [facility] Work Phone: Evaluation + Plan note Future Appointments Appointment Date:01/17/2022 02:00:00 PM Scheduled Provider:ROSIBEL SMITH MD Location:[facility] Appointment Type:PC OV [facility] Evaluation + Plan note Future Appointments Appointment Date:01/17/2022 02:00:00 PM Scheduled Provider:ROSIBEL SMITH MD Location:[facility] Appointment Type: OV Future Scheduled Tests Radiology* MRI MRCP 11/26/21 [facility] Evaluation + Plan note Future Appointments Appointment Date:02/10/2023 10:00:00 AM Scheduled Provider:SHAMA VENTURA DO Location:[facility] Appointment Type: Wellness Annual Future Scheduled Tests Laboratory* Basic Metabolic Panel 02/12/23 * Prostate Specific Antigen 02/12/23 * Prostate Specific Antigen 07/15/22 * Thyroid Stimulating Hormone 02/12/23 * Thyroid Stimulating Hormone 07/15/22 * Free T4 02/12/23 * Free T4 07/15/22 * Vitamin B12 Level 02/12/23 * Vitamin B12 Level 07/15/22 * A1C Hemoglobin 02/12/23 * Complete Blood Count 02/12/23 * Complete Blood Count 07/15/22 * Lipid Profile 02/12/23 * Lipid Profile 07/15/22 * Hepatitis C Antibody IgG 02/12/23 * Microalbumin Level Urine 02/12/23 * PTH, Intact 07/15/22 * Vitamin D Level 02/12/23 * Vitamin D Level 07/15/22 * Complete Metabolic Panel 07/15/22 Radiology* MRI MRCP 11/26/21 [facility] Evaluation + Plan note Future Appointments Appointment Date:11/20/2022 03:15:00 PM Scheduled Provider:JUSTICE SIDHU JR, MD Location:[facility] Appointment Type:GS OV Follow Up Appointment Date:11/27/2022 03:00:00 PM Scheduled Provider:SHAMA VENTURA DO Location:[facility] Appointment Type:PC OV Appointment Date:02/10/2023 10:00:00 AM Scheduled Provider:SHAMA VENTURA DO Location:[facility] Appointment Type:PC Wellness Annual Future Scheduled Tests Laboratory* Basic Metabolic Panel 02/12/23 * Prostate Specific Antigen 02/12/23 * Prostate Specific Antigen 07/15/22 * Thyroid Stimulating Hormone 02/12/23 * Thyroid Stimulating Hormone 07/15/22 * Free T4 02/12/23 * Free T4 07/15/22 * Vitamin B12 Level 02/12/23 * Vitamin B12 Level 07/15/22 * A1C Hemoglobin 02/12/23 * Complete Blood Count 02/12/23 * Complete Blood Count 07/15/22 * Lipid Profile 02/12/23 * Lipid Profile 07/15/22 * Hepatitis C Antibody IgG 02/12/23 * Microalbumin Level Urine 02/12/23 * PTH, Intact 07/15/22 * Vitamin D Level 02/12/23 * Vitamin D Level 07/15/22 * Complete Metabolic Panel 07/15/22 Radiology* MRI MRCP 11/26/21 [facility] Evaluation + Plan note Future Appointments Appointment Date:08/11/2023 02:00:00 PM Scheduled Provider:SHAMA VENTURA DO Location:[facility] Appointment Type:PC OV Future Scheduled Tests Laboratory* Albumin/Creatinine Ratio, Random Urine 06/09/23 [facility] Hospital course Narrative No data available for this section [facility] Hospital Discharge instructions No data available for this section [facility] Progress note No data available for this section [facility] Discharge Instructions * Discharge Instr - Lab* Jamila Greco RN - 07/14/2019 11:44 AM EDT Your physician has ordered skilled home care services for you. Your home care will be provided by: [facility] [phone] * Additional Instructions* Pacheco Shukla APRN - PATIENT FINANCIAL SERVICES MANAGER - 07/14/2019 Your instructions: Recommended diet: regular diet Recommended activity: activity as tolerated GENERAL ZONES GREEN ZONE: All Clear- Your Symptoms Are Under Control No recurrence of symptoms that led to hospitalization Able to do usual activities No fever No chest pain No shortness of breath This Means You Should: Continue taking your medications as prescribed Continue activity as tolerated Keep all doctor appointments YELLOW ZONE: Caution Recurrence of symptoms that led to hospitalization Fever of 100 degrees or higher Increased fatigue or restlessness Intolerant side-effects of medications Uneasy feeling or that something is wrong This Means You Should: Call your doctor for further instructions RED ZONE: Medical Alert Severe or unrelieved shortness of breath at rest Unrelieved chest pain Confusion or you can't think clearly This Means You Should Call 911 Immediately documented in this encounter* Instructions* Zoraida Love RN - 09/29/2019 Recovery Instructions ERCP ACTIVITY: ? DO NOT DRIVE, OPERATE MACHINERY, OR DRINK ANY ALCOHOL TODAY. ? Avoid making critical decisions, signing legal documents, or performing any activity that requires alertness for the rest of the day. ? You may be bloated or have gas pains since air was introduced into the stomach for the procedure.You may need to pass the gas throughout the day. ? You may experience a mild sore throat. You may use an [id number] Chloraseptic spray, garglewith warm salt water, or use throat lozenges. Notify your physician if this feeling lasts more than48 hours. ? Rest the remainder of the day. ? You may resume normal activity tomorrow. ? You may return to work tomorrow. DIET: ? You may resume a normal diet unless notified or recommended by your physician. ? You may be eager to eat a large meal after fasting, but it is a good idea to start with light meals and ease into solid foods the first day. (*) ? If your stomach is upset, try clear liquids and bland, low-fat foods like plain toast or rice. ? Drink plenty of fluids for the first 24 hours (unless your physician states otherwise). MEDICATION: ? Resume your normal home medications unless notified or recommended by your physician. ? If you take blood thinners (such as Coumadin, Eliquis, Plavix, Aspirin, etc.) or anti-inflammatory medications (Advil, Motrin, Aleve, etc.), ask your physician when you may resume these medications. FOLLOW-UP APPOINTMENT: ? Follow up with or call your physician as needed. When to call the Doctor: ? Call your doctor IMMEDIATELY or seek medical care if you experience: ? Severe pain or vomiting ? Coughing up more than a teaspoon of blood ? You pass a large amount of tar-like stools ? Your belly is swollen and firm with severe pain ? A fever greater than 101 degrees ? Redness or swelling of arm from the IV site for more than 48 hours ? Sudden onset of chest pain or shortness of breath ? If you become extremely dizzy or pass out (lose consciousness) IF YOU ARE UNABLE TO REACH YOUR PHYSICIAN GO TO NEAREST EMERGENCY DEPARTMENT documented in this encounter* Discharge Instr - ActivityYaw Bedoya MD - 04/01/2020 1:41 PM EDT Up as tolerated. * Discharge Instr - Diet* Yaw Shanks MD - 04/01/2020 1:41 PM EDT ? Good nutrition is important when healing from an illness, injury, or surgery. Follow any nutrition recommendations given to you during your hospital stay. ? If you were given an oral nutrition supplement while in the hospital, continue to take this supplement at home. You can take it with meals, in-between meals, and/or before bedtime. These supplements can be purchased at most local grocery stores, pharmacies, and [employer]-stores. ? If you have any questions about your diet or nutrition, call the hospital and ask for the dietitian. Diet general. * Discharge Instr - TERRENCEYaw Bedoya MD - 04/01/2020 1:41 PM EDT Continuity of Care Form Patient Name: Vasiliy Tripathi : 1960 Admit date: 03/31/2020 Discharge date: Code Status Order: Full Code Advance Directives: Admitting Physician: Michael Steele MD PCP: ROSIBEL SMITH MD Discharging Nurse: Discharging Hospital Unit/Room#: [id number] Discharging Unit Phone Number: Emergency Contact: Extended Emergency Contact Information Primary Emergency Contact: PACHECO RIOS Relation: Child Preferred language: New Zealander Customer Insight Analyst needed? No Past Surgical History: Past Surgical History: Procedure Laterality Date APPENDECTOMY 1963 CHOLECYSTECTOMY, LAPAROSCOPIC 09/14/2019 ERCP 05/31/2019 ERCP N/A 09/29/2019 ERCP with stent removal OTHER SURGICAL HISTORY 04/24/2019 Pancreatic pseudocyst drain OTHER SURGICAL HISTORY 05/31/2019 biliary stent THORACENTESIS 03/19/2019 Immunization History: There is no immunization history on file for this patient. Active Problems: Patient Active Problem List Diagnosis Code Pancreatitis, unspecified pancreatitis type K85.90 Necrotizing pancreatitis K85.91 Tobacco abuse disorder Z72.0 Bilateral pleural effusion J90 Hyperbilirubinemia E80.6 Leukocytosis D72.829 Pancreatic abscess K85.90 Fever R50.9 Jaundice R17 Elevated liver function tests R94.5 Elevated lipase R74.8 Abnormal magnetic resonance cholangiopancreatography (MRCP) R93.3 Pancreatic mass K86.89 Severe malnutrition (HCC) E43 Common bile duct stenosis K83.1 Pancreatitis, recurrent K85.90 Enterobacter sepsis (HCC) A41.59 History of biliary stent insertion Z98.890 Abnormal MRI of abdomen R93.5 Moderate malnutrition (HCC) E44.0 Chronic cholecystitis K81.1 Acute pancreatitis K85.90 Pancreatic duct stricture K86.89 Recurrent pancreatitis K85.90 Acute recurrent pancreatitis K85.90 Isolation/Infection: Isolation No Isolation Patient Infection Status None to display Nurse Assessment: Last Vital Signs: BP 108/70 Pulse 51 Temp 97.2 F (36.2 C) (Temporal) Resp 18 Wt 161 lb 12.8oz (73.4 kg) SpO2 98% BMI 22.57 kg/m Last documented pain score (0-10 scale): Pain Level: (denies needs) Last Weight: Wt Readings from Last 1 Encounters: 03/31/20 161 lb 12.8 oz (73.4 kg) Mental Status: {IP PT MENTAL STATUS:58110} IV Access: { TERRENCE IV ACCESS:485121404} Nursing Mobility/ADLs: Walking {CHP DME ADLs:746326199} Transfer {CHP DME ADLs:026117497} Bathing {CHP DME ADLs:711385572} Dressing {CHP DME ADLs:035666358} Toileting {CHP DME ADLs:550827382} Feeding {CHP DME ADLs:132372865} Bale Sewer {CHP DME ADLs:558402753} Med Delivery { TERRENCE MED Delivery:202796768} Wound Care Documentation and Therapy: Elimination: Continence: Bowel: {YES / NO:} Bladder: {YES / NO:} Urinary Catheter: {Urinary Catheter:431134908} Colostomy/Ileostomy/Ileal Conduit: {YES / NO:} Date of Last BM: Intake/Output Summary (Last 24 hours) at 04/01/2020 1341 Last data filed at 04/01/2020 0528 Gross per 24 hour Intake 3250 ml Output Net 3250 ml I/O last 3 completed shifts: In: 3250 [P.O.:800; I.V.:2450] Out: - Safety Concerns: { TERRENCE Safety Concerns:952113373} Impairments/Disabilities: {[facility] Impairments/Disabilities:531656067} Nutrition Therapy: Current Nutrition Therapy: { TERRENCE Diet List:439730744} Routes of Feeding: {CHP DME Other Feedings:854639998} Liquids: {Remanufacturing Technician liquid thickness:65852} Daily Fluid Restriction: {CHP DME Yes amt example:736889061} Last Modified Barium Swallow with Video (Video Swallowing Test): {Done Not Done Date:} Treatments at the Time of Hospital Discharge: Respiratory Treatments: Oxygen Therapy: {Therapy; copd oxygen:53527} Ventilator: { CC Vent List:396271781} Rehab Therapies: {THERAPEUTIC INTERVENTION:8247578865} Weight Bearing Status/Restrictions: {[facility] Weight Bearin} Other Medical Equipment (for information only, NOT a DME order): {EQUIPMENT:732286435} Other Treatments: Patient's personal belongings (please select all that are sent with patient): {CHP DME Belongings:967593244} RN SIGNATURE: {Esignature:641719964} CASE MANAGEMENT/SOCIAL WORK SECTION Inpatient Status Date: Readmission Risk Assessment Score: Readmission Risk Risk of Unplanned Readmission: 8 Discharging to Facility/ Agency Name: Address: Phone: Fax: Dialysis Facility (if applicable) Name: Address: Dialysis Schedule: Phone: Fax: Electrical Machinist/Interchange Agent signature: {Esignature:452889511} PHYSICIAN SECTION Prognosis: {Prognosis:0861753380} Condition at Discharge: {MH Patient Condition:653933606} Rehab Potential (if transferring to Rehab): {Prognosis:8481258661} Recommended Labs or Other Treatments After Discharge: Physician Certification: I certify the above information and transfer of Vasiliy Tripathi is necessary for the continuing treatment of the diagnosis listed and that he requires {Admit to Appropriate Level of Care:40063} for {GREATER/LESS:088995929} 30 days. Update Admission H&P: {CHP DME Changes in HandP:866626610} PHYSICIAN SIGNATURE: {Esignature:510993014} * Attachments The following attachments cannot be sent through Care Everywhere. * Pancreatitis ([place] Zealander) documented in this encounter* Instructions* Silvio Hopkins MD - 09/14/2019 Discharge Instructions Call your surgeon in 1 to 2 days to schedule a follow-up appointment in 1-2 weeks. OK to shower. OK for activity as tolerated. No lifting over 15 pounds. Wound Care: keep wound clean and dry, reinforce dressing PRN and ice to area for comfort If you have steri-strips, you may remove them 5 days after your surgery. If your steri-strips fall off sooner, you may leave them off. If you have ann marie, they can be removed in 14 days after your surgery by your surgeon or PCP. If you have a drain, please record daily output amounts and bring the recordings with you to your office follow up. No driving while taking narcotic pain medications. You may take an over the counter stool softener while on narcotics for constipation as needed (colace, miralax, etc). Call your Physician or return to the Emergency Room if you experience: -New or increased pain. -New or increased bleeding. -Nausea & vomitting. -Fever & chills. -Shortness of breath. -Chest pain. -Abdominal distention. documented in this encounter History of Present Illness * Pacheco Shukla APRN - ESAU - 07/14/2019 10:36 AM EDT Hospitalist Progress Note 07/14/2019 10:36 AM PT NAME: Vasiliy Tripathi : 1960(58 y.o.) ROOM #: [id number] ADMIT DATE: 07/10/2019 PCP: ROSIBEL SMITH MD Active Hospital Problems Diagnosis Date Noted Moderate malnutrition (HCC) [E44.0] 07/13/2019 History of biliary stent insertion [Z98.890] Abnormal MRI of abdomen [R93.5] Enterobacter sepsis (HCC) [A41.59] 07/11/2019 Pancreatitis, recurrent [K85.90] 07/10/2019 Common bile duct stenosis [K83.1] 05/31/2019 Subjective: Chief Complaint Patient presents with Mass sent from [facility] for pancreatic mass. pt states he has hx of pancreatitis with recent stent placement in february. pt states he was doing fine until this. Received ativan, morphine, and k+ at [facility]. pt a&ox3, NAD noted. denies current pain Other Review of Systems: Pt denies SOB and pain. Objective: Vitals: BP 117/82 Pulse 68 Temp 98.1 F (36.7 C) (Temporal) Resp 20 Ht 5' 11 (1.803 m) Wt150 lb (68 kg) SpO2 97% BMI 20.92 kg/m Pulse Ox: SpO2 Av.3 % Min: 97 % Max: 99 % Supplemental O2: BMI Classification: Normal Weight (BMI 18.5-24.9) General appearance: alert and oriented x 4, in NAD, cooperative with exam HEENT: no thyroid masses, YA, head atraumatic and normocephalic, sclerae anicteric Lungs: clear to auscultation bilaterally, no wheezes, crackles, or rhonchi Heart: regular rate and rhythm, S1, S2 normal, no murmur, click, rub or gallop Abdomen: soft, non-tender; bowel sounds normal; no masses, no organomegaly Extremities: extremities normal, atraumatic, no cyanosis or edema Neurologic: No obvious focal neurologic deficits. Skin: W/D/I Labs: Lab Results Component Value Date WBC 8.2 07/12/2019 HGB 13.1 07/12/2019 HCT 38.5 (L) 07/12/2019 MCV 86.4 07/12/2019 PLT 149 07/12/2019 Lab Results Component Value Date NA 138 07/12/2019 K 3.6 07/12/2019 CL 110 07/12/2019 CO2 18 07/12/2019 BUN 10 07/12/2019 CREATININE 0.68 07/12/2019 GLUCOSE 91 07/12/2019 CALCIUM 8.8 07/12/2019 Medications: cefTRIAXone (ROCEPHIN) IV 2 g Intravenous Q24H sodium chloride flush 10 mL Intravenous 2 times per day sodium chloride flush 10 mL Intravenous 2 times per day heparin flush 250 Units Intravenous 2 times per day heparin flush 250 Units Intercatheter BID fluticasone 2 spray Each Nostril Daily sodium chloride flush 10 mL Intravenous 2 times per day sodium chloride flush 10 mL Intravenous 2 times per day enoxaparin 40 mg Subcutaneous Daily cholestyramine 1 packet Oral BID Imaging, notes from prior hospital and office visits and consult notes reviewed PMH: Diagnosis Date Anemia Common bile duct stenosis 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 Pancreatic abscess Pancreatitis, recurrent 07/10/2019 Assessment and Plan: - Rigors and jaundice with abnormal CT concerning for biliary stent occlusion vs cholangitis vs superinfection - hx recurrent pancreatitis, refractive to treatment in February w/progression to necrosis - he underwent IR-guided drain placement 03/20/19 and tx'ed with 4 weeks of Abx (pt is known to [facility]) - pt dx'd 05/27/19 with cavitating pancreatic mass & severe biliary dilatation - he underwent ERCP with stent on 05/31/19, s/p ERCP w/stent exchange by Dr. Wheeler 07/12/19 - OP followup with Dr. Wheeler - OP follow-up and referral to for EUS for necrotizing pancreatitis vs pancreatic mass - Sepsis d/t Citrobacter bacteremia - ID on board, meropenem and gentamycin switched to ceftriaxone pending repeat blood C+S - per ID, pt will need IV ABx for 2 weeks following negative blood cx - PICC placed yesterday - Hx ETOH abuse - Chronic anemia, stable Advance Directive: Full Code Pacheco Shukla CNP * Paulie Rosenberg MD - 07/14/2019 7:42 AM EDT [facility] - Infectious Diseases Resident Progress Note Subjective: Following for Gram negative etta septicemia. This morning on evaluation, Mr. Tripathi is awake and alert, sitting up in bed in no acute distress. He states that he feels well today, slept better last night and itching is reduced. Tolerated PICCplacement well yesterday. Objective: Vitals: Patient Vitals for the past 24 hrs: BP Temp Temp src Pulse Resp SpO2 Height 07/14/19 0658 117/82 98.1 F (36.7 C) Temporal 68 20 97 % 07/13/19 1910 105/77 98.6 F (37 C) Temporal 69 18 99 % 07/13/19 1410 5' 11 (1.803 m) 07/13/19 1050 105/77 98 F (36.7 C) Temporal 64 16 99 % Physical Exam Constitutional: He is oriented to person, place, and time. He appears well- developed and well-nourished. No distress. Thin-appearing male of stated age in no acute distress, resting in bed comfortably HENT: Head: Normocephalic and atraumatic. Nose: Nose normal. Eyes: Pupils are equal, round, and reactive to light. EOM are normal. No scleral icterus. Neck: Normal range of motion. Neck supple. No tracheal deviation present. Cardiovascular: Normal rate, regular rhythm and normal heart sounds. Exam reveals no gallop and no friction rub. No murmur heard. Pulmonary/Chest: Effort normal and breath sounds normal. No respiratory distress. He has no wheezes. He has no rales. Abdominal: Soft. Bowel sounds are normal. He exhibits no distension and no mass. There is no tenderness. There is no guarding. Musculoskeletal: Normal range of motion. He exhibits no edema, tenderness or deformity. Neurological: He is alert and oriented to person, place, and time. Skin: Skin is warm and dry. No rash noted. He is not diaphoretic. Psychiatric: He has a normal mood and affect. His behavior is normal. Vitals reviewed. Labs: Component Value Date/Time NA 138 07/12/2019 0250 K 3.6 07/12/2019 0250 CL 110 (H) 07/12/2019 0250 CO2 18 (L) 07/12/2019 0250 BUN 10 07/12/2019 0250 CREATININE 0.68 07/12/2019 0250 GLUCOSE 91 07/12/2019 0250 CALCIUM 8.8 07/12/2019 0250 PROT 6.9 07/12/2019 0250 LABALBU 3.5 07/12/2019 0250 BILITOT 5.9 (H) 07/12/2019 0250 ALKPHOS 288 (H) 07/12/2019 0250 AST 68 (H) 07/12/2019 0250 ALT 129 (H) 07/12/2019 0250 PROCAL 0.17 (A) 03/19/2019 1623 Component Value Date/Time WBC 8.2 07/12/2019 0250 HGB 13.1 07/12/2019 0250 HCT 38.5 (L) 07/12/2019 0250 PLT 149 07/12/2019 0250 GRANULOCYTES 92.2 (H) 07/10/2019 1139 LYMPHOPCT 2.6 (L) 07/10/2019 1139 MONOPCT 4.7 07/10/2019 1139 LABEOS 0.1 (L) 07/10/2019 1139 BASOPCT 0.4 07/10/2019 1139 NEUTROABS 20.1 (H) 07/10/2019 1139 Micro: Blood cx #1 (07/10): positive for Citrobacter (resistant only to ampicillin) Blood cx #2 (07/10): positive for Citrobacter Blood cx #1 (07/12): NGTD Blood cx #1 (07/13): pending Blood cx #2 (07/13): pending Lines: PICC Radiography/Echo/Other: MRI abdomen/pelvis 07/12 IMPRESSION: 1. Intra and extrahepatic biliary dilatation. This is slightly less pronounced than that seen previously. 2. Pneumobilia is present. A biliary stent is in place. No common bile duct stones are appreciated. 3. Minimal sludge in the gallbladder lumen. The gallbladder wall remains normal. 4. Inflammatory changes about the head/neck of the pancreas have improved when compared to the previous study. The pancreatic head is lobular. However, a discrete mass is not appreciated. Antimicrobials, Start/End Dates: Cefepime 2g IV q8h (07/10-07/10) Flagyl 500 mg IV x1 07/10 Meropenem IV 2g q8h (07/11 - 07/13) Gentamicin x1 07/11 Ceftriaxone (07/13 - current) Impression: - Gram negative etta septicemia with known pancreatic pseudocyst vs mass - S/p biliary stent 05/31 with concern for stent occlusion/cholangitis/superinfected mass - Infected necrotizing pancreatic abscess/pancreatitis (with Gram negative cocci on cx in 02/2019) - Augmentin intolerance (tolerates cephalosporins and carbapenems) Plan: - Transitioned to Ceftriaxone 2g q24h - PICC placed yesterday - Repeat blood culture collected 07/13, follow for clearance - Patient will need IV antibiotic treatment for 2 weeks following negative blood cx, IV abx orders to be completed and placed on chart Will discuss with Dr. Mccarthy. Associated attestation - Kelton Mccarthy MD - 07/14/2019 12:54 PM EDT [facility] Infectious Disease Attending Note Patient seen and evaluated with resident/student. I performed/re-performed a history and physical examination of the patient and discussed his/her management with the resident/student. I reviewed theresident/student note and agree with the documented findings and plan of care with changes as noted. Patient awaiting discharge. Eating today. No complaints noted. Physical Exam: Constitutional: He is oriented to person, place, and time. He appears well- developed and well-nourished. No distress. Thin-appearing male of stated age in no acute distress, resting in bed comfortably HENT: Head: Normocephalic and atraumatic. Nose: Nose normal. Eyes: Pupils are equal, round, and reactive to light. EOM are normal. Scleral icterus is present. Neck: Normal range of motion. Neck supple. No tracheal deviation present. Cardiovascular: Normal rate, regular rhythm and normal heart sounds. Exam reveals no gallop and no friction rub. No murmur heard. Pulmonary/Chest: Effort normal and breath sounds normal. No respiratory distress. He has no wheezes. He has no rales. Abdominal: Soft. Bowel sounds are normal. He exhibits no distension and no mass. There is no tenderness. There is no guarding. Musculoskeletal: Normal range of motion. He exhibits no edema, tenderness or deformity. Neurological: He is alert and oriented to person, place, and time. Skin: Skin is warm and dry. No rash noted. He is not diaphoretic. Psychiatric: He has a normal mood and affect. His behavior is normal. Vitals reviewed. Vitals: Afebrile Comments: Repeat BC negative Impression: 1. Citrobacter septicemia with known pancreatic pseudocyst vs mass/ biliary stent (05/31) with concern for stent occlusion/ cholangitis/ superinfected mass - patient s/p ERCP with stent change 2. Rigors/ fevers -improved 3. Infected necrotizing pancreatic abscess/ pancreatitis - GNC on cx (02/2019) 4. Augmentin interolance--> tolerates cephalosporins and carbapenems Plan: 1.IV ceftriaxone 2 grams IV q 24 hours thru 07-26-19 Awaiting discharge. Electronically authenticated by Kelton Mccarthy MD on 07/14/19 at 12:53 PM. * Mercedes Whitney RD, LD - 07/13/2019 3:04 PM EDT Nutrition Assessment Type and Reason for Visit: Initial Nutrition Recommendations: 1. Pt meets ASPEN/AND criteria for moderate malnutrition as indicated below 2. Continue Low Fat diet as ordered 3. Per MNT protocol, will provide Ensure HP BID to promote weight maintenance (160kcal, 16g protein, 2g fat, 8oz) 4. Pt denies diet education needs at this time 5. RD will continue to monitor and follow up weekly Nutrition Assessment: Pt with hx of necrotizing pancreatitis and biliary stenosis admits with abdominal pain and concern for blocked stent and ascending colangitis. Pt is s/p IR drain palcement in February, ERCP with stent placement in 05/31/19, and ERCP this admission with stent exchange. Imaging also concerning for necrotizing pancreatitis vs pancreatic mass. Pt reports resolution of symptoms, no abd pain, and states he ate well at breakfast and lunch, describes moderate sized meals-100% consumed. Pt states he was following low sugar, low fat diet but was recently becoming less compliant. he denies need for diet education. Pt endorses weight loss from UBW of 180# in February. Per EPIC review, pt weight was 161# on 03/19/19 and 180# on 02/04/19. Pt endorses adequate intake but poor food choices [employer] and states he drinks Ensure once daily at home and is agreeable to receiving the same while admitted. Malnutrition Assessment: Malnutrition Status: Meets the criteria for moderate malnutrition Context: Chronic illness Findings of the 6 clinical characteristics of malnutrition (Minimum of 2 out of 6 clinical characteristics is required to make the diagnosis of moderate or severe Protein Calorie Malnutrition based on AND/ASPEN Guidelines): 1. Weight Loss-10% loss or greater, in 6 months 2. Fat Loss-Mild subcutaneous fat loss, 3. Muscle Loss-Mild muscle mass loss, Nutrition Risk Level: High Nutrient Needs: Estimated Daily Total Kcal: 4126-8593 Estimated Daily Protein (g): 84-91 Estimated Daily Total Fluid (ml/day): 2100ml or per MD Nutrition Diagnosis: Problem: Moderate malnutrition, In context of acute illness or injury Etiology: related to Alteration in GI function, Catabolic illness(recurrent pancreatitis) ? Signs and symptoms: as evidenced by Mild muscle loss, Mild loss of subcutaneous fat, Weight loss greater than or equal to 10% in 6 months Objective Information: Nutrition-Focused Physical Findings: No edema. GI WDL. No N/V. +BM. Noted ^LFTs Wound Type: None Current Nutrition Therapies: Oral Diet Orders: Low Fat Oral Diet intake: 76-100% Oral Nutrition Supplement (ONS) Orders: None Anthropometric Measures: Ht: 5' 11 (180.3 cm) Current Body Wt: 154 lb (69.9 kg) Usual Body Wt: 180 lb (81.6 kg)(02/04/19) % Weight Change: , -26# (14.4% BW) / 5 months [facility] Body Wt: 172 lb (78 kg), % [facility] Body 86% BMI Classification: BMI 18.5 - 24.9 Normal Weight Nutrition Interventions: Continue current diet, Start ONS Continued Inpatient Monitoring, Education declined Nutrition Evaluation: Evaluation: Goals set Goals: Pt to tolerate po diet with >50% intake at meals and consume ONS as ordered Monitoring: Meal Intake, Supplement Intake, Diet Tolerance, Skin Integrity, I&O, Weight, Pertinent Labs, Patient/Family Education Contact Number: pager [phone] * Pacheco Shukla, [employer] HELPER - PATIENT FINANCIAL SERVICES MANAGER - 07/13/2019 11:49 AM EDT Hospitalist Progress Note 07/13/2019 11:49 AM PT NAME: Vasiliy Tripathi : 1960(58 y.o.) ROOM #: [id number] ADMIT DATE: 07/10/2019 PCP: ROSIBEL SMITH MD Active Hospital Problems Diagnosis Date Noted History of biliary stent insertion [Z98.890] Abnormal MRI of abdomen [R93.5] Enterobacter sepsis (HCC) [A41.59] 07/11/2019 Pancreatitis, recurrent [K85.90] 07/10/2019 Common bile duct stenosis [K83.1] 05/31/2019 Subjective: Chief Complaint Patient presents with Mass sent from [facility] for pancreatic mass. pt states he has hx of pancreatitis with recent stent placement in february. pt states he was doing fine until this. Received ativan, morphine, and k+ at [facility]. pt a&ox3, NAD noted. denies current pain Other Review of Systems: Pt denies SOB and pain. He's eating lunch. He has chronic insomnia. Objective: Vitals: BP 105/77 Pulse 64 Temp 98 F (36.7 C) (Temporal) Resp 16 Ht 5' 11 (1.803 m) Wt 150 lb (68 kg) SpO2 99% BMI 20.92 kg/m Pulse Ox: SpO2 Av.4 % Min: 98 % Max: 100 % Supplemental O2: BMI Classification: Normal Weight (BMI 18.5-24.9) General appearance: alert and oriented x 4, in NAD, cooperative with exam HEENT: no thyroid masses, YA, head atraumatic and normocephalic, sclerae anicteric Lungs: clear to auscultation bilaterally, no wheezes, crackles, or rhonchi Heart: regular rate and rhythm, S1, S2 normal, no murmur, click, rub or gallop Abdomen: soft, non-tender; bowel sounds normal; no masses, no organomegaly Extremities: extremities normal, atraumatic, no cyanosis or edema Neurologic: No obvious focal neurologic deficits. Skin: W/D/I Labs: Lab Results Component Value Date WBC 8.2 07/12/2019 HGB 13.1 07/12/2019 HCT 38.5 (L) 07/12/2019 MCV 86.4 07/12/2019 PLT 149 07/12/2019 Lab Results Component Value Date NA 138 07/12/2019 K 3.6 07/12/2019 CL 110 07/12/2019 CO2 18 07/12/2019 BUN 10 07/12/2019 CREATININE 0.68 07/12/2019 GLUCOSE 91 07/12/2019 CALCIUM 8.8 07/12/2019 Medications: sodium chloride 75 mL/hr at 07/12/19 1753 cefTRIAXone (ROCEPHIN) IV 2 g Intravenous Q24H fluticasone 2 spray Each Nostril Daily sodium chloride flush 10 mL Intravenous 2 times per day sodium chloride flush 3 mL Intravenous Q8H sodium chloride flush 10 mL Intravenous 2 times per day enoxaparin 40 mg Subcutaneous Daily cholestyramine 1 packet Oral BID Imaging, notes from prior hospital and office visits and consult notes reviewed PMH: Diagnosis Date Anemia Common bile duct stenosis 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 Pancreatic abscess Pancreatitis, recurrent 07/10/2019 Assessment and Plan: - Rigors and jaundice with abnormal CT concerning for biliary stent occlusion vs cholangitis vs superinfection - hx recurrent pancreatitis, refractive to treatment in February w/progression to necrosis - he underwent IR-guided drain placement 03/20/19 and tx'ed with 4 weeks of Abx (pt is known to [facility]) - pt dx'd 05/27/19 with cavitating pancreatic mass & severe biliary dilatation - he underwent ERCP with stent on 05/31/19, s/p ERCP w/stent exchange by Dr. Wheeler yesterday - OP followup with Dr. Wheeler - regarding necrotizing pancreatitis vs pancreatic mass, pt will need close follow-up and referral to for EUS as outpatient - Sepsis d/t Citrobacter bacteremia - ID on board, meropenem and gentamycin switched to ceftriaxone pending repeat blood C+S - per ID, pt will need IV ABx for 2 weeks following negative blood cx - OK to place PICC today per ID - Hx ETOH abuse - Chronic anemia, stable Advance Directive: Full Code Pacheco Shukla CNP * Paulie Rosenberg MD - 07/13/2019 10:06 AM EDT [facility] - Infectious Diseases Resident Progress Note Subjective: Following for Gram negative etta septicemia. This morning on evaluation, Mr. Tripathi is awake and alert, sitting up in bed in no acute distress. He states that he feels improved compared to yesterday. Yesterday he underwent repeat ERCP with stent exchange per Dr. Wheeler, tolerated well. MRCP collected yesterday with inflammation in the pancreatic head, large pseudocyst compressing biliary duct, stent in place. GI following, yet to be determined if 2/2 chronic pancreatitis vs neoplastic pancreatic mass. Objective: Vitals: Patient Vitals for the past 24 hrs: BP Temp Temp src Pulse Resp SpO2 07/13/19 0735 121/76 98.3 F (36.8 C) Oral 61 16 98 % 07/12/19 1932 130/80 99.3 F (37.4 C) Temporal 71 20 98 % 07/12/19 1715 120/89 98 F (36.7 C) Temporal 59 16 100 % 07/12/19 1700 (!) 123/90 60 17 100 % 07/12/19 1645 124/85 58 17 100 % 07/12/19 1630 126/89 62 16 100 % 07/12/19 1627 (!) 126/93 98.2 F (36.8 C) Temporal 59 18 100 % 07/12/19 1418 107/82 98 F (36.7 C) Temporal 58 20 100 % Physical Exam Constitutional: He is oriented to person, place, and time. He appears well- developed and well-nourished. No distress. Thin-appearing male of stated age in no acute distress, resting in bed comfortably HENT: Head: Normocephalic and atraumatic. Nose: Nose normal. Eyes: Pupils are equal, round, and reactive to light. EOM are normal. Scleral icterus is present. Neck: Normal range of motion. Neck supple. No tracheal deviation present. Cardiovascular: Normal rate, regular rhythm and normal heart sounds. Exam reveals no gallop and no friction rub. No murmur heard. Pulmonary/Chest: Effort normal and breath sounds normal. No respiratory distress. He has no wheezes. He has no rales. Abdominal: Soft. Bowel sounds are normal. He exhibits no distension and no mass. There is no tenderness. There is no guarding. Musculoskeletal: Normal range of motion. He exhibits no edema, tenderness or deformity. Neurological: He is alert and oriented to person, place, and time. Skin: Skin is warm and dry. No rash noted. He is not diaphoretic. Psychiatric: He has a normal mood and affect. His behavior is normal. Vitals reviewed. Labs: Component Value Date/Time NA 138 07/12/2019 0250 K 3.6 07/12/2019 0250 CL 110 (H) 07/12/2019 0250 CO2 18 (L) 07/12/2019 0250 BUN 10 07/12/2019 0250 CREATININE 0.68 07/12/2019 0250 GLUCOSE 91 07/12/2019 0250 CALCIUM 8.8 07/12/2019 0250 PROT 6.9 07/12/2019 0250 LABALBU 3.5 07/12/2019 0250 BILITOT 5.9 (H) 07/12/2019 0250 ALKPHOS 288 (H) 07/12/2019 0250 AST 68 (H) 07/12/2019 0250 ALT 129 (H) 07/12/2019 0250 PROCAL 0.17 (A) 03/19/2019 1623 Component Value Date/Time WBC 8.2 07/12/2019 0250 HGB 13.1 07/12/2019 0250 HCT 38.5 (L) 07/12/2019 0250 PLT 149 07/12/2019 0250 GRANULOCYTES 92.2 (H) 07/10/2019 1139 LYMPHOPCT 2.6 (L) 07/10/2019 1139 MONOPCT 4.7 07/10/2019 1139 LABEOS 0.1 (L) 07/10/2019 1139 BASOPCT 0.4 07/10/2019 1139 NEUTROABS 20.1 (H) 07/10/2019 1139 Micro: Blood cx #1 (07/10): positive for Citrobacter (resistant only to ampicillin) Blood cx #2 (07/10): positive for Citrobacter Blood cx #1 (07/12): pending collection Blood cx #2 (07/12): pending Lines: PIV Radiography/Echo/Other: MRI abdomen/pelvis 07/12 IMPRESSION: 1. Intra and extrahepatic biliary dilatation. This is slightly less pronounced than that seen previously. 2. Pneumobilia is present. A biliary stent is in place. No common bile duct stones are appreciated. 3. Minimal sludge in the gallbladder lumen. The gallbladder wall remains normal. 4. Inflammatory changes about the head/neck of the pancreas have improved when compared to the previous study. The pancreatic head is lobular. However, a discrete mass is not appreciated. Antimicrobials, Start/End Dates: Cefepime 2g IV q8h (07/10-07/10) Flagyl 500 mg IV x1 07/10 Meropenem IV 2g q8h (07/11 - current) Gentamicin x1 07/11 Impression: - Gram negative etta septicemia with known pancreatic pseudocyst vs mass - S/p biliary stent 05/31 with concern for stent occlusion/cholangitis/superinfected mass - Infected necrotizing pancreatic abscess/pancreatitis (with Gram negative cocci on cx in 02/2019) - Augmentin intolerance (tolerates cephalosporins and carbapenems) Plan: - Still on Meropenem 2g IV q8h, now that sensitivities have returned will de- escalate to ceftriaxone - Repeat blood culture collected 07/12, follow for clearance - Patient will likely need IV antibiotic treatment for 2 weeks following negative blood cx, will need PICC placed - GI following Will discuss with Dr. Mccarthy. Associated attestation - Kelton Mccarthy MD - 07/13/2019 12:58 PM EDT [facility] Infectious Disease Attending Note Patient seen and evaluated with resident/student. I performed/re-performed a history and physical examination of the patient and discussed his/her management with the resident/student. I reviewed theresident/student note and agree with the documented findings and plan of care with changes as noted. Overall patient feeling much better. No complaints today. Physical Exam: Constitutional: He is oriented to person, place, and time. He appears well- developed and well-nourished. No distress. Thin-appearing male of stated age in no acute distress, resting in bed comfortably HENT: Head: Normocephalic and atraumatic. Nose: Nose normal. Eyes: Pupils are equal, round, and reactive to light. EOM are normal. Scleral icterus is present. Neck: Normal range of motion. Neck supple. No tracheal deviation present. Cardiovascular: Normal rate, regular rhythm and normal heart sounds. Exam reveals no gallop and no friction rub. No murmur heard. Pulmonary/Chest: Effort normal and breath sounds normal. No respiratory distress. He has no wheezes. He has no rales. Abdominal: Soft. Bowel sounds are normal. He exhibits no distension and no mass. There is no tenderness. There is no guarding. Musculoskeletal: Normal range of motion. He exhibits no edema, tenderness or deformity. Neurological: He is alert and oriented to person, place, and time. Skin: Skin is warm and dry. No rash noted. He is not diaphoretic. Psychiatric: He has a normal mood and affect. His behavior is normal. Vitals reviewed. Vitals: Afebrile Comments: MRI abdomen reviewed. BC positive citrobacter species , repeat BC -16 neg x 24 hours Impression: 1. Citrobacter septicemia with known pancreatic pseudocyst vs mass/ biliary stent (05/31) with concern for stent occlusion/ cholangitis/ superinfected mass - patient s/p ERCP with stent change 2. Rigors/ fevers -improved 3. Infected necrotizing pancreatic abscess/ pancreatitis - GNC on cx (02/2019) 4. Augmentin interolance--> tolerates cephalosporins and carbapenems Plan: 1. Change IV meropenem to IV ceftriaxone 2 grams IV q 24 hours thru 07-26-19 2. Will write IV orders for discharge D/w TCC More that 51% total time 35 Minutes counseling (or coordinating care) and providing discussion regarding plan of care and d/c planning. * Macy Castro MD - 07/13/2019 8:14 AM EDT Department of Internal Medicine Gastroenterology Attending Progress Note SUBJECTIVE: Pt s/p ERCP w/ stent exchange by Dr. Wheeler yesterday. Pt states he is feeling much improved this AM. Currently brushing his teeth as I enter the room. Denies nausea or vomiting. Denies abdominal pain, fevers or chills. States he dinner yesterday evening without complaint and tolerated cream of wheat for breakfast. Is wondering when he can be discharged. ERCP 07/12/19 Dr. Wheeler - major papilla appeared to be prominent, biopsied - single localized biliary stricture in the lower third of the main bile duct, stricture benign appearing - entire biliary tree moderately dilated - biliary tree swept and nothing was found - one stent was removed and one stent placed in the common bile duct - cells for cytology obtained in the lower third of the main duct Medications Current Facility-Administered Medications: cefTRIAXone (ROCEPHIN) 2 g IVPB in D5W 50ml minibag, 2 g, Intravenous, Q24H melatonin tablet 3 mg, 3 mg, Oral, Nightly PRN traMADol (ULTRAM) tablet 50 mg, 50 mg, Oral, Q4H PRN oxyCODONE-acetaminophen (PERCOCET) 5-325 MG per tablet 1 tablet, 1 tablet, Oral, Q4H PRN fluticasone (FLONASE) 50 MCG/ACT nasal spray 2 spray, 2 spray, Each Nostril, Daily sodium chloride flush 0.9 % injection 10 mL, 10 mL, Intravenous, 2 times per day sodium chloride (PF) 0.9 % injection 10 mL, 10 mL, Intravenous, PRN [COMPLETED] Saline lock IV, , , Continuous AND sodium chloride flush 0.9 % injection 3 mL, 3 mL, Intravenous, Q8H sodium chloride flush 0.9 % injection 10 mL, 10 mL, Intravenous, 2 times per day sodium chloride flush 0.9 % injection 10 mL, 10 mL, Intravenous, PRN magnesium hydroxide (MILK OF MAGNESIA) 400 MG/5ML suspension 30 mL, 30 mL, Oral, Daily PRN ondansetron (ZOFRAN) injection 4 mg, 4 mg, Intravenous, Q6H PRN enoxaparin (LOVENOX) injection 40 mg, 40 mg, Subcutaneous, Daily 0.9 % sodium chloride infusion, , Intravenous, Continuous cholestyramine (QUESTRAN) packet 4 g, 1 packet, Oral, BID acetaminophen (TYLENOL) tablet 650 mg, 650 mg, Oral, Q4H PRN OBJECTIVE VITALS: BP 105/77 Pulse 64 Temp 98 F (36.7 C) (Temporal) Resp 16 Ht 5' 11 (1.803 m) Wt 150 lb (68 kg) SpO2 99% BMI 20.92 kg/m TEMPERATURE: Current - Temp: 98 F (36.7 C); Max - Temp Av.3 F (36.8 C) Min: 98 F (36.7 C) Max:99.3 F (37.4 C) RESPIRATIONS RANGE: Resp Av.3 Min: 16 Max: 20 PULSE RANGE: Pulse Av.3 Min: 58 Max: 71 BLOOD PRESSURE RANGE: Systolic (24hrs), Av , Min:105 , Max:130 ; Diastolic (24hrs), Av, Min:76, Max:93 PULSE OXIMETRY RANGE: SpO2 Av.4 % Min: 98 % Max: 100 % 24HR INTAKE/OUTPUT: Intake/Output Summary (Last 24 hours) at 07/13/2019 1326 Last data filed at 07/12/2019 1632 Gross per 24 hour Intake 300 ml Output Net 300 ml GENERAL: Pleasant and NAD. HEENT: NCAT, PERRLA, EOMI, Scleral icteric. Oropharhynx clear with no erythema or exudate. Neck supple, no cervical LAD or thyromegaly. CV: RRR, NL S1/S2, no murmurs. Distal pulses palpable and equal b/l. LUNGS: CTA b/l. Normal percussion and palpation. No W/R/R. ABD: + BS, soft, non-tender and non-distended. No hepatosplenomegaly. No mass felt. No rebound or guarding. EXT: No C/C/E. No muscle atrophy. Skin: No skin lesion or breakdown. Lymph: No cervical or supraclavicular LAD. Musculoskeletal: Strength 5/5 in all exts. No joint tenderness or effusions in LEs. Neurologic: A&O x 3, CN II-XII grossly intact. DTR +2 symmetric in patella. Normal cerebellar fxn. Normal gait. No asterixis. Non-focal. Data Recent blood work, radiologic study and endoscopic study were reviewed with the patient. CBC: Recent Labs 07/11/19 0631 07/12/19 0250 WBC 8.8 8.2 RBC 4.52 4.46 HGB 13.4 13.1 HCT 39.0* 38.5* MCV 86.4 86.4 MCH 29.7 29.4 MCHC 34.4 34.0 RDW 19.9* 19.7* PLT 138* 149 MPV 8.9 8.8 CMP: Recent Labs 07/11/19 0630 07/12/19 0250 NA 140 138 K 3.4* 3.6 CL 112* 110* CO2 19* 18* BUN 13 10 CREATININE 0.71 0.68 GLUCOSE 93 91 CALCIUM 8.6 8.8 PROT 6.4 6.9 LABALBU 3.3* 3.5 BILITOT 6.2* 5.9* ALKPHOS 287* 288* AST 78* 68* ALT 154* 129* LIPASE: No results for input(s): LIPASE in the last 72 hours. ASSESSMENT AND PLAN 1. Cholangitis d/t infected biliary stent 2. Transamintitis, elevated lipase 3. GNR Septicemia 4. S/p ERCP w plastic stent change by Dr. Wheeler 07/12/19 5. Hx of necrotizing pancreatitis 6. Abnormal MRCP 05/28/19 - cavitating pancreatic mass which may represent neoplasm of necrotizing pancreatitis - LFTs downtrending, pt clinically improved s/p biliary stent exchange yesterday. - Will need close follow-up with Dr. Wheeler regarding removal of stent vs. Stent exchange. Upon discussion with Dr. Wheeler stricture in CBD appeared benign but brushings were taken. Pt needs to follow-up with Dr. Weheler for results of brushings and at that time decision will be made regarding stent removal. - regarding necrotizing pancreatitis vs. Pancreatic mass pt will need close follow-up and referral to for EUS as outpatient. Referral will be placed in the chart by Dr. Castro. - continue antibiotics given bacteremia, further management per ID. - continue supportive cares per primary team - okay for d/c from GI standpoint - The GI/Liver consult service will sign off. Please call if there are any questions, concerns or change of patient's GI condition. Thanks. Attending Supervising Physician's Attestation Statement I performed a history and physical examination on the patient and discussed the management with thephysician machine operator assistant. I reviewed and agree with the findings and plan as documented in her note Above note has been edited to reflect my additional findings and recommendations. * Leanna Crawford RN - 07/12/2019 4:48 PM EDT SB[facility] faxed and AGUILA Lambert called report to [facility] 5th floor. Patient drowsy, easily arousable, states mild sore throat. * Pacheco Shukla APRN - ESAU - 07/12/2019 10:45 AM EDT Hospitalist Progress Note 07/12/2019 11:00 AM PT NAME: Vasiliy Tripathi : 1960(58 y.o.) ROOM #: [id number] ADMIT DATE: 07/10/2019 PCP: ROSIBEL SMITH MD Active Hospital Problems Diagnosis Date Noted Enterobacter sepsis (HCC) [A41.59] 07/11/2019 Pancreatitis, recurrent [K85.90] 07/10/2019 Common bile duct stenosis [K83.1] 05/31/2019 Subjective: Chief Complaint Patient presents with Mass sent from [facility] for pancreatic mass. pt states he has hx of pancreatitis with recent stent placement in february. pt states he was doing fine until this. Received ativan, morphine, and k+ at [facility]. pt a&ox3, NAD noted. denies current pain Other Review of Systems: Pt denies SOB, N/V. He says he has a cold since 3 days ago, denies cough but c/o nasal congestion and rhinorrhea. Objective: Vitals: BP 125/79 Pulse 63 Temp 98.4 F (36.9 C) (Temporal) Resp 18 Ht 5' 11 (1.803 m) Wt150 lb (68 kg) SpO2 99% BMI 20.92 kg/m Pulse Ox: SpO2 Av.5 % Min: 98 % Max: 99 % Supplemental O2: BMI Classification: Normal Weight (BMI 18.5-24.9) General appearance: alert and oriented x 4, in NAD, cooperative with exam HEENT: no thyroid masses, YA, head atraumatic and normocephalic, sclerae anicteric Lungs: clear to auscultation bilaterally, no wheezes, crackles, or rhonchi Heart: regular rate and rhythm, S1, S2 normal, no murmur, click, rub or gallop Abdomen: soft, non-tender; bowel sounds normal; no masses, no organomegaly Extremities: extremities normal, atraumatic, no cyanosis or edema Neurologic: No obvious focal neurologic deficits. Skin: W/D/I Labs: Lab Results Component Value Date WBC 8.2 07/12/2019 HGB 13.1 07/12/2019 HCT 38.5 (L) 07/12/2019 MCV 86.4 07/12/2019 PLT 149 07/12/2019 Lab Results Component Value Date NA 138 07/12/2019 K 3.6 07/12/2019 CL 110 07/12/2019 CO2 18 07/12/2019 BUN 10 07/12/2019 CREATININE 0.68 07/12/2019 GLUCOSE 91 07/12/2019 CALCIUM 8.8 07/12/2019 Medications: sodium chloride 75 mL/hr at 07/11/19 2107 meropenem 2 g Intravenous Q8H sodium chloride flush 3 mL Intravenous Q8H sodium chloride flush 10 mL Intravenous 2 times per day enoxaparin 40 mg Subcutaneous Daily cholestyramine 1 packet Oral BID Imaging, notes from prior hospital and office visits and consult notes reviewed PMH: Diagnosis Date Anemia Common bile duct stenosis 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 Pancreatic abscess Pancreatitis, recurrent 07/10/2019 Assessment and Plan: - Rigors and jaundice with abnormal CT concerning for biliary stent occlusion vs cholangitis vs superinfection - hx recurrent pancreatitis, refractive to treatment in February w/progression to necrosis - he underwent IR-guided drain placement 03/20/19 and tx'ed with 4 weeks of Abx (pt is known to [facility]) - pt dx'd 05/27/19 with cavitating pancreatic mass & severe biliary dilatation - he underwent ERCP with stent on 05/31/19, MRCP pending, GI & surgery on board - stent was supposed to be removed by Dr Wheeler 07/19/19 - Sepsis d/t Citrobacter bacteremia - ID on board, continue meropenem and gentamycin pending blood C+S - Hx ETOH abuse - Chronic anemia, stable Advance Directive: Full Code Pacheco Shukla CNP * Macy Castro MD - 07/12/2019 9:25 AM EDT Department of Internal Medicine Gastroenterology Attending Progress Note SUBJECTIVE: 58 y/o M patient w hx of pancreatitis, pseudocyst of pancreas. GI following for ascending cholangitis and infected biliary stent. Pt is a patient of Dr. Wheeler. Pt states he is doing well this AM. No acute events overnight. Is NPO for MRCP this morning at 7AM.Denies abdominal pain, nausea or vomiting. Is passing flatus, last BM yesterday. Afebrile overnight, states rigors and shoulder cramping has improved. ERCP on 05/31/[address] Jian Wheeler Impression: - A single localized biliary stricture was found in the lower third of the main bile duct. The stricture was malignant appearing. - A biliary sphincterotomy was performed. - Cells for cytology obtained in the lower third of the main duct. - One plastic stent was placed into the common bile duct Cytology: DIAGNOSIS ATYPICAL CELLS PRESENT OF UNCERTAIN SIGNIFICANCE. Medications Current Facility-Administered Medications: melatonin tablet 3 mg, 3 mg, Oral, Nightly PRN traMADol (ULTRAM) tablet 50 mg, 50 mg, Oral, Q4H PRN oxyCODONE-acetaminophen (PERCOCET) 5-325 MG per tablet 1 tablet, 1 tablet, Oral, Q4H PRN fluticasone (FLONASE) 50 MCG/ACT nasal spray 2 spray, 2 spray, Each Nostril, Daily lactated ringers infusion, , Intravenous, Continuous sodium chloride flush 0.9 % injection 10 mL, 10 mL, Intravenous, 2 times per day sodium chloride (PF) 0.9 % injection 10 mL, 10 mL, Intravenous, PRN lactated ringers infusion, , Intravenous, Continuous meropenem (MERREM) 2 g in sodium chloride 0.9 % 100 mL extended infusion IVPB, 2 g, Intravenous, Q8H [COMPLETED] Saline lock IV, , , Continuous AND sodium chloride flush 0.9 % injection 3 mL, 3 mL, Intravenous, Q8H sodium chloride flush 0.9 % injection 10 mL, 10 mL, Intravenous, 2 times per day sodium chloride flush 0.9 % injection 10 mL, 10 mL, Intravenous, PRN magnesium hydroxide (MILK OF MAGNESIA) 400 MG/5ML suspension 30 mL, 30 mL, Oral, Daily PRN ondansetron (ZOFRAN) injection 4 mg, 4 mg, Intravenous, Q6H PRN enoxaparin (LOVENOX) injection 40 mg, 40 mg, Subcutaneous, Daily 0.9 % sodium chloride infusion, , Intravenous, Continuous cholestyramine (QUESTRAN) packet 4 g, 1 packet, Oral, BID acetaminophen (TYLENOL) tablet 650 mg, 650 mg, Oral, Q4H PRN OBJECTIVE VITALS: BP 107/82 Pulse 58 Temp 98 F (36.7 C) (Temporal) Resp 20 Ht 5' 11 (1.803 m) Wt 150 lb (68 kg) SpO2 100% BMI 20.92 kg/m TEMPERATURE: Current - Temp: 98 F (36.7 C); Max - Temp Av.5 F (36.9 C) Min: 98 F (36.7 C) Max:99.2 F (37.3 C) RESPIRATIONS RANGE: Resp Av Min: 16 Max: 20 PULSE RANGE: Pulse Av Min: 58 Max: 65 BLOOD PRESSURE RANGE: Systolic (24hrs), Av , Min:107 , Max:125 ; Diastolic (24hrs), Av, Min:76, Max:82 PULSE OXIMETRY RANGE: SpO2 Av % Min: 98 % Max: 100 % 24HR INTAKE/OUTPUT: No intake or output data in the 24 hours ending 07/12/19 1602 GENERAL: Pleasant and NAD. Jaundice. HEENT: NCAT, PERRLA, EOMI, Scleral icteric. Oropharhynx clear with no erythema or exudate. Neck supple, no cervical LAD or thyromegaly. CV: RRR, NL S1/S2, no murmurs. Distal pulses palpable and equal b/l. LUNGS: CTA b/l. Normal percussion and palpation. No W/R/R. ABD: + BS, soft, non-tender and non-distended. No hepatosplenomegaly. No mass felt. No rebound or guarding. EXT: No C/C/E. No muscle atrophy. Skin: No skin lesion or breakdown. Lymph: No cervical or supraclavicular LAD. Musculoskeletal: Strength 5/5 in all exts. No joint tenderness or effusions in LEs. Neurologic: A&O x 3, CN II-XII grossly intact. DTR +2 symmetric in patella. Normal cerebellar fxn. Non-focal. Data Recent blood work, radiologic study and endoscopic study were reviewed with the patient. CBC: Recent Labs 07/10/19 1139 07/11/19 0631 07/12/19 0250 WBC 21.8* 8.8 8.2 RBC 4.94 4.52 4.46 HGB 14.4 13.4 13.1 HCT 43.1 39.0* 38.5* MCV 87.2 86.4 86.4 MCH 29.2 29.7 29.4 MCHC 33.5 34.4 34.0 RDW 20.6* 19.9* 19.7* PLT 206 138* 149 MPV 8.6 8.9 8.8 CMP: Recent Labs 07/10/19 1139 07/11/19 0630 07/12/19 0250 NA 140 140 138 K 4.9 3.4* 3.6 CL 107 112* 110* CO2 21* 19* 18* BUN 15 13 10 CREATININE 0.77 0.71 0.68 GLUCOSE 104* 93 91 CALCIUM 9.2 8.6 8.8 PROT 7.7 6.4 6.9 LABALBU 4.1 3.3* 3.5 BILITOT 4.7* 6.2* 5.9* ALKPHOS 277* 287* 288* AST 138* 78* 68* ALT 209* 154* 129* LIPASE: Recent Labs 07/10/19 1139 LIPASE 506* PT/INR: Recent Labs 07/10/19 1139 INR 1.0 MRCP 05/28/19 CONCLUSIONS: 1. Cavitating pancreatic mass which may represent neoplasm or necrotizing pancreatitis. The prosthesis appears to involve the dura curvature of the stomach. 2. Severe biliary dilatation with abrupt termination at the enlarged pancreatic head. 3. Hydropic gallbladder with fundal sludge. 4. Small amount of ascites. Report Dictated on Workstation: [id number] --- Final --- Dictated: 05/28/2019 4:10 pm Dictating Physician: MD ROGEL B NELSON Signed Date and Time: 05/28/2019 4:30 pm Signed by: MD ROGEL B NELSON Transcribed Date and Time: 05/28/2019 4:10 MRCP 07/12/19 IMPRESSION: 1. Intra and extrahepatic biliary dilatation. This is slightly less pronounced than that seen previously. 2. Pneumobilia is present. A biliary stent is in place. No common bile duct stones are appreciated. 3. Minimal sludge in the gallbladder lumen. The gallbladder wall remains normal. 4. Inflammatory changes about the head/neck of the pancreas have improved when compared to the previous study. The pancreatic head is lobular. However, a discrete mass is not appreciated. Report Dictated on Workstation: [id number] --- Final --- Dictated: 07/12/2019 12:37 pm Dictating Physician: MD CRYSTAL JEFFREY Signed Date and Time: 07/12/2019 1:33 pm Signed by: MD CRYSTAL JEFFREY Transcribed Date and Time: 07/12/2019 12:37 ASSESSMENT AND PLAN 1. Cholangitis d/t infected biliary stent 2. Transamintitis, elevated lipase 3. GNR Septicemia 4. S/p ERCP w plastic stent placemen by Dr. Wheeler 05/31/19 5. Hx of necrotizing pancreatitis 6. Abnormal MRCP 05/28/19 - cavitating pancreatic mass which may represent neoplasm of necrotizing pancreatitis - trend LFTs/INR - spoke with radiologist regarding MRCP results who states changes are likely from chronic pancreatitis with inflammation in the pancreatic head and large pseudocyst compressing the biliary duct, CBDdilated to 2cm. Stent in place. - Spoke with Dr. Wheeler regarding patient case who recommend ERCP with stent exchange today - after speaking with patient question diagnosis of pancreatitis from previous ETOH use ?, pt states he drinks socially with friends, never binge drinking, reports 30+ lb weight loss in the past few months. - radiologist recommends CT abd/pelvis with IV and PO contrast to further evaluate change in the pancreas to evaluate for possible pancreatic mass, CA 19- 9 in May wnl - continue antibiotics - continue supportive cares per primary team Attending Supervising Physician's Attestation Statement I performed a history and physical examination on the patient and discussed the management with thephysician machine operator assistant. I reviewed and agree with the findings and plan as documented in her note Above note has been edited to reflect my additional findings and recommendations. * Helen Petersen - 07/12/2019 8:55 AM EDT .Nutrition rescreen completed. Patient referred to the Dietitian. .JONATHAN Wellington * Paulie Rosenberg MD - 07/12/2019 8:20 AM EDT [facility] - Infectious Diseases Attending Progress Note Subjective: Following for Gram negative etta septicemia. This morning on evaluation, Mr. Tripathi is awake and alert, sitting up comfortably in bed in no acute distress. He states that he underwent his MRCP this morning successfully. Read currently pending. He denies any subjective fevers or chills, chest pain, SOB, nausea, vomiting, diarrhea, or constipation. Denies any new rashes, but does endorse increased diffuse purulence and increased jaundice. Objective: Vitals: Patient Vitals for the past 24 hrs: BP Temp Temp src Pulse Resp SpO2 07/12/19 0722 125/79 98.4 F (36.9 C) Temporal 63 18 99 % 07/11/19 1950 112/76 99.2 F (37.3 C) Temporal 65 16 98 % Physical Exam Constitutional: He is oriented to person, place, and time. He appears well- developed and well-nourished. No distress. Thin-appearing male of stated age in no acute distress, resting in bed comfortably HENT: Head: Normocephalic and atraumatic. Nose: Nose normal. Eyes: Pupils are equal, round, and reactive to light. EOM are normal. Scleral icterus is present. Neck: Normal range of motion. Neck supple. No tracheal deviation present. Cardiovascular: Normal rate, regular rhythm and normal heart sounds. Exam reveals no gallop and no friction rub. No murmur heard. Pulmonary/Chest: Effort normal and breath sounds normal. No respiratory distress. He has no wheezes. He has no rales. Abdominal: Soft. Bowel sounds are normal. He exhibits no distension and no mass. There is no tenderness. There is no guarding. Musculoskeletal: Normal range of motion. He exhibits no edema, tenderness or deformity. Neurological: He is alert and oriented to person, place, and time. Skin: Skin is warm and dry. No rash noted. He is not diaphoretic. Psychiatric: He has a normal mood and affect. His behavior is normal. Vitals reviewed. Labs: Component Value Date/Time NA 138 07/12/2019 0250 K 3.6 07/12/2019 0250 CL 110 (H) 07/12/2019 0250 CO2 18 (L) 07/12/2019 0250 BUN 10 07/12/2019 0250 CREATININE 0.68 07/12/2019 0250 GLUCOSE 91 07/12/2019 0250 CALCIUM 8.8 07/12/2019 0250 PROT 6.9 07/12/2019 0250 LABALBU 3.5 07/12/2019 0250 BILITOT 5.9 (H) 07/12/2019 0250 ALKPHOS 288 (H) 07/12/2019 0250 AST 68 (H) 07/12/2019 0250 ALT 129 (H) 07/12/2019 0250 PROCAL 0.17 (A) 03/19/2019 1623 Component Value Date/Time WBC 8.2 07/12/2019 0250 HGB 13.1 07/12/2019 0250 HCT 38.5 (L) 07/12/2019 0250 PLT 149 07/12/2019 0250 GRANULOCYTES 92.2 (H) 07/10/2019 1139 LYMPHOPCT 2.6 (L) 07/10/2019 1139 MONOPCT 4.7 07/10/2019 1139 LABEOS 0.1 (L) 07/10/2019 1139 BASOPCT 0.4 07/10/2019 1139 NEUTROABS 20.1 (H) 07/10/2019 1139 Micro: Blood cx #1 (07/10): positive for Enterobacteriaceae Blood cx #2 (07/10): Gram negative bacillus Blood cx #2 (07/12): pending Lines: PIV Radiography/Echo/Other: MRI abdomen/pelvis 07/12 Pending read Antimicrobials, Start/End Dates: Cefepime 2g IV q8h (07/10-07/10) Flagyl 500 mg IV x1 07/10 Meropenem IV 2g q8h (07/11 - current) Gentamicin x1 07/11 Impression: - Gram negative etta septicemia with known pancreatic pseudocyst vs mass - S/p biliary stent 05/31 with concern for stent occlusion/cholangitis/superinfected mass - Infected necrotizing pancreatic abscess/pancreatitis (with Gram negative cocci on cx in 02/2019) - Augmentin intolerance (tolerates cephalosporins and carbapenems) Plan: - Continue Meropenem 2g IV q8h - Repeat blood culture x1 collected today, follow for clearance - Await read of MRCP - GI following Will discuss with Dr. Mccarthy. Associated attestation - Kelton Mccarthy MD - 07/12/2019 11:16 AM EDT [facility] Infectious Disease Attending Note Patient seen and evaluated with resident/student. I performed/re-performed a history and physical examination of the patient and discussed his/her management with the resident/student. I reviewed theresident/student note and agree with the documented findings and plan of care with changes as noted. Following patient for positive blood cultures. Itching less today. No other complaints noted. Physical Exam: Constitutional: He is oriented to person, place, and time. He appears well- developed and well-nourished. No distress. Thin-appearing male of stated age in no acute distress, resting in bed comfortably HENT: Head: Normocephalic and atraumatic. Nose: Nose normal. Eyes: Pupils are equal, round, and reactive to light. EOM are normal. Scleral icterus is present. Neck: Normal range of motion. Neck supple. No tracheal deviation present. Cardiovascular: Normal rate, regular rhythm and normal heart sounds. Exam reveals no gallop and no friction rub. No murmur heard. Pulmonary/Chest: Effort normal and breath sounds normal. No respiratory distress. He has no wheezes. He has no rales. Abdominal: Soft. Bowel sounds are normal. He exhibits no distension and no mass. There is no tenderness. There is no guarding. Musculoskeletal: Normal range of motion. He exhibits no edema, tenderness or deformity. Neurological: He is alert and oriented to person, place, and time. Skin: Skin is warm and dry. No rash noted. He is not diaphoretic. Psychiatric: He has a normal mood and affect. His behavior is normal. Vitals reviewed. Vitals: Afebrile Comments: BC positive citrobacter species Impression: 1. Citrobacter septicemia with known pancreatic pseudocyst vs mass/ biliary stent (05/31) with concern for stent occlusion/ cholangitis/ superinfected mass 2. Rigors/ fevers -improved 3. Infected necrotizing pancreatic abscess/ pancreatitis - GNC on cx (02/2019) 4. Augmentin interolance--> tolerates cephalosporins and carbapenems Plan: Continue IV meropenem at this time Repeat BC pending 3. Await MRCP. Likely needs stent change in setting of bacteremia/sepsis 4. GI and surgery are following. Electronically authenticated by Kelton Mccarthy MD on 07/12/19 at 11:13 AM. * Edmund Aj MD - 07/12/2019 8:10 AM EDT Department of Surgery Surgical Service - Surgery 1 Daily Progress Note PATIENT NAME: Vasiliy Tripathi : 1960 ATTENDING PHYSICIAN: Oswaldo Wayne MD ADMIT DATE: 07/10/2019 TODAY'S DATE: 07/12/2019 SUBJECTIVE Pain is well controlled today, he is feeling generally about normal. He has a little itching still,but is wondering also if this isn't from sweating and not being able to shower either. Patient informed he is able to shower here. ROS: Review of Systems Constitutional: Negative for appetite change, chills, diaphoresis and fever. HENT: Negative for congestion, nosebleeds, rhinorrhea and trouble swallowing. Eyes: Negative for pain, discharge, redness and visual disturbance. Respiratory: Negative for cough, shortness of breath and wheezing. Cardiovascular: Negative for chest pain, palpitations and leg swelling. Gastrointestinal: Negative for abdominal distention, abdominal pain, constipation, diarrhea, nauseaand vomiting. Endocrine: Negative for cold intolerance, heat intolerance, polyphagia and polyuria. Genitourinary: Negative for difficulty urinating, dysuria and frequency. Musculoskeletal: Negative for arthralgias and neck pain. Skin: Negative for color change and pallor. Neurological: Negative for dizziness, seizures and facial asymmetry. Hematological: Negative for adenopathy. Does not bruise/bleed easily. Psychiatric/Behavioral: Negative for behavioral problems, confusion and decreased concentration. OBJECTIVE VITALS: BP 125/79 Pulse 63 Temp 98.4 F (36.9 C) (Temporal) Resp 18 Ht 5' 11 (1.803 m) Wt150 lb (68 kg) SpO2 99% BMI 20.92 kg/m PHYSICAL EXAM: Physical Exam Constitutional: He is oriented to person, place, and time. He appears well- developed and well-nourished. No distress. HENT: Head: Normocephalic and atraumatic. Right Ear: External ear normal. Left Ear: External ear normal. Mouth/Throat: No oropharyngeal exudate. Eyes: Pupils are equal, round, and reactive to light. Scleral icterus is present. Neck: No JVD present. No tracheal deviation present. Cardiovascular: Normal rate, regular rhythm and normal heart sounds. Exam reveals no gallop and no friction rub. No murmur heard. Pulmonary/Chest: Effort normal and breath sounds normal. No respiratory distress. He has no wheezes. Abdominal: Soft. He exhibits no distension and no mass. There is no tenderness. There is no reboundand no guarding. Musculoskeletal: He exhibits no edema, tenderness or deformity. Lymphadenopathy: He has no cervical adenopathy. Neurological: He is alert and oriented to person, place, and time. No cranial nerve deficit. Skin: Skin is warm and dry. Capillary refill takes less than 2 seconds. No erythema. Psychiatric: He has a normal mood and affect. His behavior is normal. INTAKE/OUTPUT: No intake/output data recorded. No intake/output data recorded. Data Recent Labs 07/10/19 1139 07/11/19 0631 07/12/19 0250 WBC 21.8* 8.8 8.2 HGB 14.4 13.4 13.1 HCT 43.1 39.0* 38.5* PLT 206 138* 149 Recent Labs 07/10/19 1139 07/11/19 0630 07/12/19 0250 NA 140 140 138 K 4.9 3.4* 3.6 CL 107 112* 110* CO2 21* 19* 18* BUN 15 13 10 CREATININE 0.77 0.71 0.68 GLUCOSE 104* 93 91 Recent Labs 07/10/19 1139 07/11/19 0630 07/12/19 0250 AST 138* 78* 68* ALT 209* 154* 129* BILITOT 4.7* 6.2* 5.9* ALKPHOS 277* 287* 288* Imaging No results found. Current Inpatient Medications Current Facility-Administered Medications: melatonin tablet 3 mg, 3 mg, Oral, Nightly PRN meropenem (MERREM) 2 g in sodium chloride 0.9 % 100 mL extended infusion IVPB, 2 g, Intravenous, Q8H [COMPLETED] Saline lock IV, , , Continuous AND sodium chloride flush 0.9 % injection 3 mL, 3 mL, Intravenous, Q8H sodium chloride flush 0.9 % injection 10 mL, 10 mL, Intravenous, 2 times per day sodium chloride flush 0.9 % injection 10 mL, 10 mL, Intravenous, PRN magnesium hydroxide (MILK OF MAGNESIA) 400 MG/5ML suspension 30 mL, 30 mL, Oral, Daily PRN ondansetron (ZOFRAN) injection 4 mg, 4 mg, Intravenous, Q6H PRN enoxaparin (LOVENOX) injection 40 mg, 40 mg, Subcutaneous, Daily 0.9 % sodium chloride infusion, , Intravenous, Continuous morphine sulfate (PF) injection 2 mg, 2 mg, Intravenous, Q4H PRN cholestyramine (QUESTRAN) packet 4 g, 1 packet, Oral, BID acetaminophen (TYLENOL) tablet 650 mg, 650 mg, Oral, Q4H PRN ASSESSMENT AND PLAN 58 y.o. male s/p ERCP with stent placement with abdominal pain and concern for blocked stent and ascending colangitis. Bilirubin worsening but antibiotics appear to be helping with WBC -pain control prn -no acute surgical intervention at this time -zosyn -MRCP per GI -continue to trend LFTs -cont IVFs -OOB/ambulate -Encourage IS -DVT ppx -management of this process will be per GI; as there is no immediate need for surgical intervention, surgery will sign off at this time -if in the future surgery is discussed as a potential plan for this patient, would be happy to see the patient again. Discussed with Dr. Morataya and he is in agreement with this plan. Edmund Aj MD 07/12/2019 8:11 AM Associated attestation - Douglas Morataya MD - 07/12/2019 1:39 PM EDT Agree with the note and plans. No surgical issues. Possible episode of cholangitis ( positive bloodcx, transient elevation of LFTs, improving WBC with abx), decision per GI for ERCP and stent exchange. Usually would recommend abx for 7-10 days. Please call with any questions. * Heather Canales MD - 07/11/2019 10:43 AM EDT Department of Internal Medicine Gastroenterology Attending Progress Note SUBJECTIVE: Today patient seen and examined Spiked 2 low grade temps, tolerating PO intake Denies abdominal pain, nausea and vomiting Baseline bowel movements No evidence of GI bleeding Idris increased Improved leukocytosis Cx growing GNB On broad spectrum Abx Medications Current Facility-Administered Medications: potassium chloride (KLOR-CON M) extended release tablet 40 mEq, 40 mEq, Oral, Once [COMPLETED] Saline lock IV, , , Continuous AND sodium chloride flush 0.9 % injection 3 mL, 3 mL, Intravenous, Q8H sodium chloride flush 0.9 % injection 10 mL, 10 mL, Intravenous, 2 times per day sodium chloride flush 0.9 % injection 10 mL, 10 mL, Intravenous, PRN magnesium hydroxide (MILK OF MAGNESIA) 400 MG/5ML suspension 30 mL, 30 mL, Oral, Daily PRN ondansetron (ZOFRAN) injection 4 mg, 4 mg, Intravenous, Q6H PRN enoxaparin (LOVENOX) injection 40 mg, 40 mg, Subcutaneous, Daily 0.9 % sodium chloride infusion, , Intravenous, Continuous morphine sulfate (PF) injection 2 mg, 2 mg, Intravenous, Q4H PRN cefepime (MAXIPIME) 2 g IVPB extended (mini-bag), 2 g, Intravenous, Q8H cholestyramine (QUESTRAN) packet 4 g, 1 packet, Oral, BID acetaminophen (TYLENOL) tablet 650 mg, 650 mg, Oral, Q4H PRN OBJECTIVE VITALS: BP 104/72 Pulse 72 Temp 100.4 F (38 C) (Temporal) Resp 20 Ht 5' 11 (1.803 m) Wt 150 lb (68 kg) SpO2 100% BMI 20.92 kg/m TEMPERATURE: Current - Temp: 100.4 F (38 C); Max - Temp Av.7 F (37.6 C) Min: 98.2 F (36.8 C) Max: 101.7 F (38.7 C) RESPIRATIONS RANGE: Resp Av.4 Min: 18 Max: 20 PULSE RANGE: Pulse Av.6 Min: 56 Max: 79 BLOOD PRESSURE RANGE: Systolic (24hrs), Av , Min:102 , Max:115 ; Diastolic (24hrs), Av, Min:68, Max:82 PULSE OXIMETRY RANGE: SpO2 Av.8 % Min: 95 % Max: 100 % 24HR INTAKE/OUTPUT: No intake or output data in the 24 hours ending 07/11/19 1045 GENERAL: Pleasant and NAD. HEENT: Scleral icteric. CV:S1/S2. LUNGS: Non labored breathing Abdomen: Soft, non-tender and non-distended. No hepatosplenomegaly. No mass felt. No rebound or guarding. No hernia. Neurologic: A&O x 3, grossly intact. Psych: Normal affect and speech. Data Recent blood work, radiologic study and endoscopic study were reviewed with the patient. CBC with Differential: Lab Results Component Value Date WBC 8.8 07/11/2019 RBC 4.52 07/11/2019 HGB 13.4 07/11/2019 HCT 39.0 07/11/2019 PLT 138 07/11/2019 MCV 86.4 07/11/2019 MCH 29.7 07/11/2019 MCHC 34.4 07/11/2019 RDW 19.9 07/11/2019 LYMPHOPCT 2.6 07/10/2019 MONOPCT 4.7 07/10/2019 BASOPCT 0.4 07/10/2019 MONOSABS 1.0 07/10/2019 LYMPHSABS 0.6 07/10/2019 EOSABS 0.0 07/10/2019 BASOSABS 0.1 07/10/2019 CMP: Lab Results Component Value Date NA 140 07/11/2019 K 3.4 07/11/2019 CL 112 07/11/2019 CO2 19 07/11/2019 BUN 13 07/11/2019 CREATININE 0.71 07/11/2019 GLUCOSE 93 07/11/2019 PROT 6.4 07/11/2019 LABALBU 3.3 07/11/2019 CALCIUM 8.6 07/11/2019 BILITOT 6.2 07/11/2019 ALKPHOS 287 07/11/2019 AST 78 07/11/2019 ALT 154 07/11/2019 Warfarin PT/INR: No components found for: PTPATWAR, PTINRWAR ASSESSMENT AND PLAN Principal Problem: Enterobacter sepsis (HCC) Active Problems: SIRS (systemic inflammatory response syndrome) (HCC) Pancreas disorder Common bile duct stenosis Pancreatitis, recurrent Resolved Problems: * No resolved hospital problems. * Hx of necrotizing pancreatitis, ? Mass at HOP with biliary obstruction Fluid collection S/p drainage S/p ERCP with stent placement Biliary brushing were unremarkable but is low yield Bilirubin is down trending Patient has leukocytosis and an abnormal CT from OSH Febrile x 2; low grade but not hypotensive Surgery following Leukocytosis improving Cx +ve for GNB On broad spectrum Abx Strongly recommend an MRI ( with contrast ) to evaluate the pancreas, mass, necrosis and MRCP (W/O contrast ) to for further evaluate the biliary tree and ducts Further recommendations following MRI / MRCP * Edmund Aj MD - 07/11/2019 10:06 AM EDT Department of Surgery Surgical Service - Surgery 1 Daily Progress Note PATIENT NAME: Vasiliy Tripathi : 1960 ATTENDING PHYSICIAN: Oswaldo Wayne MD ADMIT DATE: 07/10/2019 TODAY'S DATE: 07/11/2019 SUBJECTIVE Pain is well controlled today, he is not really even having any according to him. He says he felt hot overnight, but he had sweats for a while and then it went away. His only complaint today was a bit of a stuffed up nose. ROS: Review of Systems Constitutional: Negative for appetite change, chills, diaphoresis and fever. HENT: Positive for congestion and rhinorrhea. Negative for nosebleeds and trouble swallowing. Eyes: Negative for pain, discharge, redness and visual disturbance. Respiratory: Negative for cough, shortness of breath and wheezing. Cardiovascular: Negative for chest pain, palpitations and leg swelling. Gastrointestinal: Negative for abdominal distention, abdominal pain, constipation, diarrhea, nauseaand vomiting. Endocrine: Negative for cold intolerance, heat intolerance, polyphagia and polyuria. Genitourinary: Negative for difficulty urinating, dysuria and frequency. Musculoskeletal: Negative for arthralgias and neck pain. Skin: Negative for color change and pallor. Neurological: Negative for dizziness, seizures and facial asymmetry. Hematological: Negative for adenopathy. Does not bruise/bleed easily. Psychiatric/Behavioral: Negative for behavioral problems, confusion and decreased concentration. OBJECTIVE VITALS: BP 104/72 Pulse 72 Temp 100.4 F (38 C) (Temporal) Resp 20 Ht 5' 11 (1.803 m) Wt 150 lb (68 kg) SpO2 100% BMI 20.92 kg/m PHYSICAL EXAM: Physical Exam Constitutional: He is oriented to person, place, and time. He appears well- developed and well-nourished. No distress. HENT: Head: Normocephalic and atraumatic. Right Ear: External ear normal. Left Ear: External ear normal. Mouth/Throat: No oropharyngeal exudate. Eyes: Pupils are equal, round, and reactive to light. No scleral icterus. Neck: No JVD present. No tracheal deviation present. Cardiovascular: Normal rate, regular rhythm and normal heart sounds. Exam reveals no gallop and no friction rub. No murmur heard. Pulmonary/Chest: Effort normal and breath sounds normal. No respiratory distress. He has no wheezes. Abdominal: Soft. He exhibits no distension and no mass. There is no tenderness. There is no reboundand no guarding. Musculoskeletal: He exhibits no edema, tenderness or deformity. Lymphadenopathy: He has no cervical adenopathy. Neurological: He is alert and oriented to person, place, and time. No cranial nerve deficit. Skin: Skin is warm and dry. Capillary refill takes less than 2 seconds. No erythema. Psychiatric: He has a normal mood and affect. His behavior is normal. INTAKE/OUTPUT: No intake/output data recorded. No intake/output data recorded. Data Recent Labs 07/10/19113807/11/19 0631 WBC 21.8* 8.8 HGB 14.4 13.4 HCT 43.1 39.0* PLT 206 138* Recent Labs 07/10/19 1139 07/11/19 0630 NA 140 140 K 4.9 3.4* CL 107 112* CO2 21* 19* BUN 15 13 CREATININE 0.77 0.71 GLUCOSE 104* 93 Recent Labs 07/10/19 1139 07/11/19 0630 AST 138* 78* ALT 209* 154* BILITOT 4.7* 6.2* ALKPHOS 277* 287* Imaging No results found. Current Inpatient Medications Current Facility-Administered Medications: [COMPLETED] Saline lock IV, , , Continuous AND sodium chloride flush 0.9 % injection 3 mL, 3 mL, Intravenous, Q8H sodium chloride flush 0.9 % injection 10 mL, 10 mL, Intravenous, 2 times per day sodium chloride flush 0.9 % injection 10 mL, 10 mL, Intravenous, PRN magnesium hydroxide (MILK OF MAGNESIA) 400 MG/5ML suspension 30 mL, 30 mL, Oral, Daily PRN ondansetron (ZOFRAN) injection 4 mg, 4 mg, Intravenous, Q6H PRN enoxaparin (LOVENOX) injection 40 mg, 40 mg, Subcutaneous, Daily 0.9 % sodium chloride infusion, , Intravenous, Continuous morphine sulfate (PF) injection 2 mg, 2 mg, Intravenous, Q4H PRN cefepime (MAXIPIME) 2 g IVPB extended (mini-bag), 2 g, Intravenous, Q8H cholestyramine (QUESTRAN) packet 4 g, 1 packet, Oral, BID acetaminophen (TYLENOL) tablet 650 mg, 650 mg, Oral, Q4H PRN ASSESSMENT AND PLAN 58 y.o. male s/p ERCP with stent placement with abdominal pain and concern for blocked stent and ascending colangitis. Bilirubin worsening but antibiotics appear to be helping with WBC -pain control prn -no acute surgical intervention at this time -zosyn -MRCP per GI -continue to trend LFTs -cont IVFs -OOB/ambulate -Encourage IS -DVT ppx Edmund Aj MD 07/11/2019 10:06 AM Associated attestation - Douglas Morataya MD - 07/11/2019 11:02 AM EDT Patient seen and examined. Agree with the note and plans. WBC normalized, no recorded fevers. Will follow up on MRCP, may need ERCP to ensure stent patency if bilirubin continues to trend up. documented in this encounter* Zoraida Love RN - 09/29/2019 9:30 AM EST Discharge information given to the patient by Laura SHEEHAN. Patient and family verbalized understandingof information. All questions were answered before discharge. Patient ambulated, denies dizziness or nausea. Tolerating PO fluids and crackers. Vital signs are stable. Patient has changed and is being discharged home in a wheelchair with valuables. * Gem Gross RN - 09/29/2019 8:44 AM EST Pt ready for tx to sds; report called with pt tx to sds 27 documented in this encounter* Heather Canales MD - 04/01/2020 11:38 AM EDT Department of Internal Medicine Gastroenterology Attending Progress Note SUBJECTIVE: Today patient seen and examined Afebrile, tolerating PO intake, decreased nausea and vomiting Decreased abdominal paon Baseline bowel movements, passing gas No evidence of GI bleeding Underwent MRI / MRCP; report below Medications Current Facility-Administered Medications: 0.9 % sodium chloride infusion, , Intravenous, Continuous oxyCODONE (ROXICODONE) immediate release tablet 5 mg, 5 mg, Oral, Q6H PRN sodium chloride flush 0.9 % injection 10 mL, 10 mL, Intravenous, 2 times per day sodium chloride flush 0.9 % injection 10 mL, 10 mL, Intravenous, PRN acetaminophen (TYLENOL) tablet 650 mg, 650 mg, Oral, Q4H PRN promethazine (PHENERGAN) tablet 12.5 mg, 12.5 mg, Oral, Q6H PRN OR ondansetron (ZOFRAN) injection 4 mg, 4 mg, Intravenous, Q6H PRN enoxaparin (LOVENOX) injection 40 mg, 40 mg, Subcutaneous, Daily pantoprazole (PROTONIX) injection 40 mg, 40 mg, Intravenous, Daily AND sodium chloride (PF) 0.9% injection 10 mL, 10 mL, Intravenous, Daily [DISCONTINUED] morphine sulfate (PF) injection 1 mg, 1 mg, Intravenous, Q3H PRN OR morphine sulfate (PF) injection 2 mg, 2 mg, Intravenous, Q3H PRN LORazepam (ATIVAN) tablet 0.5 mg, 0.5 mg, Oral, Q8H PRN OBJECTIVE VITALS: BP 108/70 Pulse 51 Temp 97.2 F (36.2 C) (Temporal) Resp 18 Wt 161 lb 12.8 oz (73.4 kg) SpO2 98% BMI 22.57 kg/m TEMPERATURE: Current - Temp: 97.2 F (36.2 C); Max - Temp Av.7 F (36.5 C) Min: 97.2 F (36.2 C) Max: 98.1 F (36.7 C) RESPIRATIONS RANGE: Resp Av.5 Min: 15 Max: 18 PULSE RANGE: Pulse Av Min: 51 Max: 55 BLOOD PRESSURE RANGE: Systolic (24hrs), Av , Min:108 , Max:143 ; Diastolic (24hrs), Av, Min:70, Max:99 PULSE OXIMETRY RANGE: SpO2 Av.5 % Min: 98 % Max: 99 % 24HR INTAKE/OUTPUT: Intake/Output Summary (Last 24 hours) at 04/01/2020 1138 Last data filed at 04/01/2020 0528 Gross per 24 hour Intake 3250 ml Output Net 3250 ml GENERAL: Pleasant and NAD. HEENT: NCAT, EOMI, Scleral anicteric. Oropharhynx clear with no erythema or exudate. CV: RRR, S1/S2, no murmurs. No edema. LUNGS: Non labored breathing, CTA b/l. No W/R/R. Abdomen: + BS, soft, non-tender and non-distended. No hepatosplenomegaly. No mass felt. No rebound or guarding. Extremities: No C/C/E. No muscle atrophy. Skin: No skin lesion or breakdown, warm, moist, no rashes. Lymph: No cervical or supraclavicular LAD. Musculoskeletal: Strength 5/5 in all exts. No joint tenderness or effusions in LEs. Neurologic: A&O x 3, grossly intact. No asterixis. Psych: Normal affect and speech. Data Recent blood work, radiologic study and endoscopic study were reviewed with the patient. CBC with Differential: Lab Results Component Value Date WBC 7.9 03/31/2020 RBC 4.56 03/31/2020 HGB 13.9 03/31/2020 HCT 40.7 03/31/2020 PLT 156 03/31/2020 MCV 89.4 03/31/2020 MCH 30.5 03/31/2020 MCHC 34.1 03/31/2020 RDW 13.7 03/31/2020 LYMPHOPCT 11.6 10/12/2019 MONOPCT 6.6 10/12/2019 MONOPCT 9.3 07/20/2019 BASOPCT 0.4 10/12/2019 BASOPCT 0.9 07/20/2019 MONOSABS 0.6 10/12/2019 MONOSABS 0.80 07/20/2019 LYMPHSABS 1.1 10/12/2019 LYMPHSABS 1.90 07/20/2019 EOSABS 0.1 10/12/2019 EOSABS 0.20 07/20/2019 BASOSABS 0.0 10/12/2019 BASOSABS 0.10 07/20/2019 CMP: Lab Results Component Value Date NA 137 04/01/2020 K 3.8 04/01/2020 CL 107 04/01/2020 CO2 22 04/01/2020 BUN 12 04/01/2020 CREATININE 0.69 04/01/2020 GFRAA 126 07/20/2019 AGRATIO 0.9 07/20/2019 LABGLOM 104 07/20/2019 GLUCOSE 87 04/01/2020 GLUCOSE 96 07/20/2019 PROT 6.5 03/31/2020 PROT 7.1 07/20/2019 LABALBU 4.0 03/31/2020 LABALBU 3.4 07/20/2019 CALCIUM 8.4 04/01/2020 BILITOT 0.8 03/31/2020 ALKPHOS 57 03/31/2020 AST 31 03/31/2020 ALT 22 03/31/2020 PT/INR: Lab Results Component Value Date PROTIME 10.8 10/12/2019 INR 1.0 10/12/2019 ---MRI--- Exam Date/Time 03/31/2020 19:48:36 EDT Exam MRI Abdomen w/ + w/o Contrast Ordering Physician [id number] SUSAN BLAIR Accession Number [id number] CPT4 Codes 15382 () Reason For Exam mass like soft tissue fullness in head/neck of pancreas as seen on outside CT, cannot r/o malignancy, also new cystic structure near neck of pancreas Report MRI ABDOMEN WITHOUT AND WITH CONTRAST (WITH ATTENTION TO THE PANCREAS) PLUS MRCP: CLINICAL INDICATION: Abdominal pain and pancreatic enlargement. History of pancreatic abscess and drainage one year ago. TECHNIQUE: Transaxial and coronal T1 and fast T2 fat suppression as well as in phase and opposed phase transaxial gradient echo along with dynamic multiphase contrast enhanced transaxial T1 sequences during administration of 7 mL of gadolinium were performed through the abdomen with attention to the level of the pancreas. In addition, diffusion weighted imaging along with thickness MRCP sequences were performed. COMPARISON: MRI from 07/12/2019 and 05/28/[address] from 05/27/2019 FINDINGS: There is mild intrahepatic and extrahepatic biliary dilatation. The common hepatic duct demonstrates a caliber of up to 1.4 cm. The common bile duct is in the range of approximately 0.6 cm. The main pancreatic duct demonstrates a caliber of up to 0.4 cm. There is, however, a cystic region within the pancreatic neck as noted on series number 4 image 6 adjacent to the pancreatic duct measuring 1.2 cm, which is new. The pancreatic head is enlarged as compared to the remainder of the body and tail with AP dimension of up to 3 cm while the body and tail demonstrates AP dimension of up to 1.5 cm. There is, however, no region of abnormal signal within the pancreatic head. Coronal imaging demonstrates a somewhat retractile configuration anterior to the pancreatic body and posterior to the stomach as noted on series 4 images 4 through 6. Liver: Normal size and contour. No focal lesion. Spleen: Normal Adrenals:Normal Kidneys: Symmetric contrast enhancement without mass or hydronephrosis Aorta: Normal caliber Visualized Osseous structures: Normal IMPRESSION: 1. Biliary dilatation again noted without increase in caliber since 07/12/2019 along with mild dilatation of the main pancreatic duct also unchanged 2. A new cyst projects anterior to the pancreatic duct measuring 1.2 cm at the pancreatic neck. A new pseudocyst or cystic neoplasm is considered. Six-month follow-up would be recommended for this process. 3. Pancreatic head is again relatively large without change and there is no identifiable region of abnormal signal to suggest a mass in the head 4. The retractile configuration anterior to the pancreas and posterior to the stomach as noted on coronal imaging is a suspicious finding and can be seen with neoplastic process, however, this may be scarring from prior abscess in the region. ASSESSMENT AND PLAN Recurrent Pancreatitis; Doing well, improved clinically Abnormal CT, MRI & MRCP Fullness of the HOP No evidence of ductal stricture New cystic lesion Recommendations: Supportive cares for treatment of pancreatitis with IV fluids (recommend LR given increased benefitin treatment of pancreatitis), anti-emetics and pain control Advance diet as tolerated Start Creon 72,000units with meals and 36,000units with snacks given hx of recurrent pancreatitis Recommend low fat diet Continue abstaining from alcohol and smoking EUS as outpatient to further evaluate the head of the pancreas / cystic lesion in 2-3 weeks Please call if there are any questions, concerns or change of patient's GI condition. GI will sign off. documented in this encounter* Stormy Garcia RN - 09/14/2019 11:30 AM EST Discharge information given to the patient. Patient and family verbalized understanding of information. All questions were answered before discharge. Patient ambulated, denies dizziness or nausea. Tolerating PO fluids and crackers. Vital signs are stable. Patient has changed and is being discharged home in a wheelchair with valuables. * Douglas Morataya MD - 09/14/2019 9:34 AM EST Location of preoperative H&P, updated H&P and anesthesia preoperative assessment note pointed out to charge nurse in preoperative area. All present in the Epic and completed prior surgery date as per protocol. * Joanne Hurley RN - 09/14/2019 7:[address] Morataya H&P not in Epic. He states it is. Checked again. Not in epic. Sindi, coordinator notified. documented in this encounter Assessments Diagnosis Enterobacter sepsis (HCC)- Primary Septicemia due to gram-negative organism, unspecified Pancreatitis, recurrent Chronic pancreatitis Common bile duct stenosis Obstruction of bile duct History of biliary stent insertion Abnormal MRI of abdomen Nonspecific (abnormal) findings on radiological and other examination of abdominal area, including retroperitoneum Moderate malnutrition (HCC) Malnutrition of moderate degree Diagnosis Anxiety Anxiety state, unspecified Acute recurrent pancreatitis Acute pancreatitis Diagnosis Chronic cholecystitis- Primary Acute biliary pancreatitis with uninfected necrosis Advance Directives No Advanced Directives Records FoundDocuments on File Type Date Recorded 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 Advance Directives and Living Will Power of [employer] Eng[employer] Latest Code Status on File Code Status Date Activated Date Inactivated Comments Full Code 07/12/2019 2:08 PM Full Code 07/12/2019 1:23 PM 07/12/2019 2:08 PM Full Code 07/10/2019 3:21 PM 07/12/2019 1:23 PM Full Code 05/30/2019 7:41 PM 06/01/2019 4:08 PM Full Code 05/27/2019 8:45 PM 05/30/2019 7:41 PM Latest Code Status on File Code Status Date Activated Date Inactivated Comments Full Code 09/14/2019 6:13 AM 09/14/2019 2:04 PM Full Code 07/12/2019 2:08 PM 07/14/2019 4:52 PM Latest Code Status on File Code Status Date Activated Date Inactivated Comments Full Code 03/31/2020 1:28 AM Full Code 10/12/2019 4:48 AM 10/13/2019 7:24 PM Full Code 09/14/2019 6:13 AM 09/14/2019 2:04 PM Latest Code Status on File Code Status Date Activated Date Inactivated Comments Full Code 09/14/2019 6:13 AM Summary Purpose Family History No Family History Records FoundNo Family History Records FoundNo Family History Records FoundNo Family History Records FoundNo Family History Records Found No data available for this section No Family History Records Found Chief Complaint Follow-up, to discuss surgery for recurrent acute on chronic pancreatitis. Additional Source Comments Reason for Visit (unrecogniz ed section and content) (unrecognized sect ion and content) No Status Records FoundNo Status Records FoundNo Status Records FoundNo Status Records FoundNo Status Records FoundNo Status Records Found INFORMATION SOURCE (unrecogn ized section and content) DATE CREATED AUTHOR AUTHOR'S ORGANIZ ATION 01/02/2021 [facility] DATE CREATED AUTHOR AUTHOR'S ORGANIZ ATION 03/01/2022 [facility] DATE CREATED AUTHOR AUTHOR'S ORGANIZ ATION 03/20/2022 [facility] DATE CREATED AUTHOR AUTHOR'S ORGANIZ ATION 06/24/2022 [employer] DATE CREATED AUTHOR AUTHOR'S ORGANIZ ATION 10/17/2023 [facility] ([place]) Care Team (unrecognized sect ion and content) Care Team Personnel Name: SHAMA VENTURA DO Position: P4 Physician - Primary Care Member Role: Primary Care Physician Address: Address: [address] [place] [address] Care Team Related Persons Name: EDILBERTO TRIPATHI Address: Home [address] [place], [place] [id number] Address: Temporary [address] [place], [place] [id number] Name: SAURAV DRUMMOND Care Team Personnel Name: SHAMA VENTURA DO Position: P4 Physician - Primary Care Member Role: Primary Care Physician Address: Address: [address] [place] [address] Care Team Related Persons Name: EDILBERTO TRIPATHI Address: Home [address] [place], [place] [id number] Address: Temporary [address] [place], [place] [id number] Name: SAURAV DRUMMOND Patient Care team informatio n (unrecognized section and content) Care Team Personnel Name: SHAMA VENTURA DO Position: P4 Physician - Primary Care Member Role: Primary Care Physician Address: Address: [address] [facility] [place] [address]- Care Team Related Persons Name: EDILBERTO TRIPATHI Address: Home [address] [place], [place] [id number] Address: Temporary [address] [place], [place] [id number] Name: SAURAV DRUMMOND FOR RECORDS PERTAINING TO PATIENTS WHO ARE OR HAVE BEEN ENROLLED IN A CHEMICAL DEPENDENCY/SUBSTANCEABUSE PROGRAM, SOME INFORMATION MAY BE OMITTED. This clinical summary was aggregated from multiple sources. Caution should be exercised in using it in the provision of clinical care. This summary normalizes information from multiple sources, and as a consequence, information in this document may materially change the coding, format and clinical context of patient data. In addition, data may be omitted in some cases. CLINICAL DECISIONS SHOULD BE BASED ON THE PRIMARY CLINICAL RECORDS. [employer] provides no warranty or guarantee of the accuracy or completeness of information in this document.
[2023-10-31 19:25] LABS: CREATININE FINGERSTICK < 1.0 mg/dL (0.70-1.30); EGFR FINGERSTICK > 60.0000 mL/min (>60)
== END | disposition home or self-care (01) ==
LOC: CT 18:54
PROVIDERS: Referring Provider Internal Medicine Gastroenterology; Visit Provider Internal Medicine Gastroenterology
DX: K85.90 Acute pancreatitis without necrosis or infection, unspecified (principal)
CPT/HCPCS: 74170; Q9967

== ENCOUNTER 2023-12-30 19:40 | Emergency (ER) | payer MEDICAID, SELFPAY ==
[2023-12-30 19:41] VITALS: BP 177/108; PULSE 78; RESP 15; TEMP 36.6; O2SAT 100; BMI 11.0
--- NOTE | 2023-12-30 19:42 | EKG12_ITS ---
Test Reason : DYSRHYTHMIA Blood Pressure : / mmHG Vent. Rate : 068 BPM Atrial Rate : 068 BPM P-R Int : 152 ms QRS Dur : 100 ms QT Int : 440 ms P-R-T Axes : 010 010 051 degrees QTc Int : 467 ms Normal sinus rhythm Incomplete right bundle branch block Borderline ECG Confirmed by Steve Cordova ([id number]), photographic editor BIRGIT GILLIAM ([id number]) on 12/31/2023 9:44:44 AM Referred By: Confirmed By:Steve Cordova
[2023-12-30 19:45] VITALS: BP 146/93; PULSE 73; RESP 17; O2SAT 100
[2023-12-30 20:11] LABS: Absolute Lymphocyte Count 2.49 X10^3/uL (0.83-4.51); Absolute Neutrophil Count 5.9 X10^3/uL (2.0-7.7); Basophil# 0.05 X10^3/uL; Basophil% 0.5 % (0-1); Eosinophil# 0.14 X10^3/uL; Eosinophils% 1.5 % (0-5); Hematocrit 44.3 % (40-54); Hemoglobin 14.6 g/dL (13.0-16.5); Lymphocyte # 2.49 X10^3/ul (0.83-4.51); Lymphocyte % 26.7 % (19-41); Mean Corpuscular Hgb 28.4 pg (27.0-32.0); Mean Corpuscular Volume 86.2 fL (80-94); Mean Platelet Vol. 10.2 fl (6.2-12.0); Monocyte# 0.77 X10^3/uL; Monocyte% 8.2 % (0-10); NRBC Flagged by Analyzer 0 % (0-5); Neutrophil # 5.87 X10^3/uL (2.7-7.7); Neutrophil % 62.9 % (47-70); Platelet Count 194 K/mm3 (150-450); RBC Distribution Width CV 13.2 % (11.6-14.6); Red Blood Count 5.14 M/mm3 (4.6-6.2); White Blood Count 9.3 K/mm3 (4.4-11.0)
[2023-12-30 20:33] LABS: Anion Gap 5 (5-15); BUN 21 mg/dL (7-18); BUN/Creat Ratio 14.4 RATIO (10-20); Calcium,Total 9.5 mg/dL (8.5-10.1); Chloride 106 mmol/L (98-107); Creatinine, Serum 1.46 mg/dL (0.70-1.30); EST Glomerular Filtration Rate 52 mL/min (>60); Est Glom Filt Rate - Afr Amer 63 mL/min (>60); Estimated Creatinine Clearance 26.35 ml/min; Glucose 113 mg/dL (74-106); Potassium 3.8 mmol/L (3.5-5.1); Sodium Level 139 mmol/L (136-145); Troponin-I HS (w/2H Reflex) 12 pg/mL (3.0-78.0)
--- NOTE | 2023-12-30 20:40 | RAD_ITS ---
INDICATION: chest pain EXAMINATION/TECHNIQUE: X-RAY - XR Chest 1 View COMPARISON: August 09, 2023 chest x-ray. FINDINGS: LINES/DEVICES: None. LUNGS: Symmetric normal lung volumes. No airspace opacity or abnormal interstitial pattern. No nodule or mass. No pleural effusion or pneumothorax. MEDIASTINUM AND CARDIOVASCULAR STRUCTURES: Normal size and contour of the cardiomediastinal silhouette. No evidence of pulmonary vascular congestion. BONES AND SOFT TISSUES: No acute fracture or focal osseous lesion. Lateral scapular osseous changes inferior to the left glenoid, unchanged. This likely represents remote trauma. RAD/Chest 1 View (Portable) IMPRESSION: 1. No radiographic evidence of acute cardiopulmonary disease. Electronically Signed: Steve Steel DO at 21:14 EST ,
[2023-12-30 20:41] VITALS: BP 148/85; PULSE 78; RESP 18; O2SAT 100
--- NOTE | 2023-12-30 21:04 | EDS_ITS ---
HPI History of Present Illness Chief Complaint: Chest Pain Detail of Chief Complaint: Intermittent shortness of breath. Not exertional. Informant: patient Onset/Context/Timing Onset: Today Activity at onset: sudden Timing: Intermittent Worsened By: Nothing Relieved By: Nothing Associated Symptoms: Positive for Dyspnea; Negative for Nausea, Vomiting, Diaphoresis, Cough, Fever, Lightheadedness, Acid Reflux or Palpitations Narrative Narrative: 63-year-old male history of chronic pancreatitis, prior cholecystectomy and hypertension. No cardiac disease. No history of DVT or PE. States I think this is my anxiety but he said at times he has gotten short of breath today. It is nonexertional. He will cholic chest pain he says it he feels like his breathing is heavy. No leg pain or swelling. No history of DVT or PE. He said he is quite active and has not had any exertional chest pain or exertional dyspnea. Does not believe he is ever had a cardiac workup. Prior Similar Symptoms: Yes Recent Illness/Hospitalization: No CVD Risk Factors: Positive for Hypertension PE Risk Factors: Negative for Recent Travel/Surgery, Recent Immobilization, Prior DVT or PE, Cancer or OCP + Smoking + >/=35 TAD Risk Factors: Negative for Marfan's Syndrome [facility] Medical History Anxiety High cholesterol History of echocardiogram Hx of pancreatitis Hypertension Non-smoker Pancreatitis Wears glasses Home Medications omeprazole 40 mg capsule,delayed release 40 mg PO DAILY 12/17/21 [History Last Taken 12/17/21] cholecalciferol (vitamin D3) 50 mcg (2,000 unit) capsule (Vitamin D3) 50 mcg PO DAILY 01/01/23 [History Last Taken Unknown] [id number] 36,000-114,000-180,000 unit capsule,delay rel (Creon) See Rx Instructions PO .COMPLEX #360 caps 06/11/23 [Rx Last Taken Unknown] lisinopril 20 mg tablet 30 mg PO DAILY 07/03/23 [History Last Taken Unknown] Allergy/AdvReac Type Severity Reaction Status Date / Time amoxicillin [From Augmentin] Allergy Swelling Verified 12/30/23 19:43 clavulanic acid Allergy Swelling Verified 12/30/23 19:43 [From Augmentin] Penicillins Allergy PT UNSURE Verified 12/30/23 19:43 OF REACTION hydromorphone [From Dilaudid] AdvReac Other Verified 12/30/23 19:43 Family History Father Myocardial infarction Surgical History History of ERCP Hx of cholecystectomy S/P appendectomy Social History Smoking Status: Former smoker ROS ROS ED ROS Narrative Subjective dyspnea. No fever or cough. Denies chest pain. Denies leg pain or swelling. No exertional symptoms. Review of Systems ROS Unobtainable: Denies due to encephalopathy Constitutional Constitutional ED: Denies chills or fever(s) Eyes Eyes: Reports none ENT ENT ED: Denies ear pain Cardiovascular Cardiovascular: Denies as per HPI, chest pain, orthopnea, palpitations, paroxysmal nocturnal dyspnea or racing heartbeat Respiratory/Chest Respiratory/Chest: Reports dyspnea; Denies cough, dyspnea on exertion, orthopnea, paroxysmal nocturnal dyspnea or sputum Gastrointestinal Gastrointestinal: Denies abdominal pain Genitourinary Genitourinary ED: Denies dysuria or hematuria Musculoskeletal Musculoskeletal: Denies arthralgias Integumentary Denies abscess Neurologic Neurologic: Denies headache(s) Psychiatric Psychiatric: Denies anxiety or depression Endocrine Endocrinology: Denies cold intolerance Hematologic/Lymphatic Hematologic/Lymphatic: Denies easy bleeding, easy bruising or lymphadenopathy Allergic/Immunologic Allergic/Immunologic ED: Denies mouth swelling, tongue swelling or urticaria EXAM Physical Exam Narrative Exam Narrative: Well-appearing 63-year-old male. Vital signs stable afebrile. Pulse ox 100% on room air no signs hypoxia. H EENT exam normal. Neck nontender. No JVD. No lymphadenopathy. Lungs clear to auscultation bilaterally. Heart regular rate and rhythm rate about 70 no murmur. Chest wall nontender. Abdomen soft nonten jong. No peritoneal signs. Moving all 4 extremities. Calves are nontender without edema or cords. Neurologically is awake and alert no focal motor deficits. Patient clinically looks well. No distress. Sitting upright in bed. Const Vital Signs: 12/30/23 19:41 12/30/23 19:44 12/30/23 19:44 Temperature 97.9 F Temperature Source Temporal Pulse Rate 78 Respiratory Rate 15 Respiratory Effort Normal Non-Labored Blood Pressure 177/108 H Blood Pressure Mean 131 Pulse Ox 100 Oxygen Delivery Method Room Air Room Air 12/30/23 19:45 12/30/23 20:41 12/30/23 21:41 Temperature Temperature Source Pulse Rate 73 78 71 Respiratory Rate 17 18 16 Respiratory Effort Blood Pressure 146/93 H 148/85 H 144/96 H Blood Pressure Mean 110 106 112 Pulse Ox 100 100 98 Oxygen Delivery Method Room Air Room Air Room Air Positive well nourished and well developed; Negative for cachectic, contractures or unkempt General Appearance ED: well developed and NAD; Negative for unkempt, cachectic, contractures or pallor Nutritional Appearance: Negative for cachectic HEENT Reports moist mucous membranes normocephalic and atraumatic; Negative for trauma or tenderness Eyes PERRL and EOMs intact bilaterally General Eye ED: Negative for pale conjunctiva, scleral icterus or other Neck no lymphadenopathy, supple and no JVD General: Negative for tenderness Chest Wall inspection of chest normal and palpation of chest normal Chest: Negative for tenderness Resp normal respiratory effort and clear to auscultation bilaterally Effort and Inspection: Negative for respiratory distress Auscultation: Negative for rales, rhonchi or wheezes Cardio regular rate, regular rhythm, S1 normal heart sound, S2 normal heart sound and no murmurs Rate: Negative for bradycardia or tachycardic Rhythm: Negative for abnormal rhythm Peripheral Pulses: pulses 2+ throughout GI normal to inspection, nondistended, normoactive bowel sounds, soft to palpation, non-tender, non-distended and no masses Auscultation: Negative for hyperactive bowel sounds Back/Spine no CVA tenderness and no thoracic nor lumbar tenderness General Back: Negative for CVA tenderness Cervical Spine: Negative for cervical spine tenderness Extremity normal to inspection General Extremety ED: Negative for edema, pulses abnormal or tenderness General Extremity: Negative for edema or pulses abnormal Neuro oriented x3 and CN's II-XII intact bilaterally Sensorium / Orientation: awake, alert, oriented to person, oriented to place and oriented to time; Negative for confused, lethargic or stuporous Motor Exam: strength 5/5 throughout; Negative for general weakness or strength abnormal Psych mental status grossly normal Appearance: Negative for unkempt Attitude: No agitated Mood & Affect: Negative for depressed or tearful Skin no rashes or lesions noted and no wounds General Skin Exam: Negative for jaundice or pallor Rashes: No rashes noted Trauma: Negative for abrasion or laceration Heart Score History: Slightly/Non-Suspicious ECG: Normal Age: >45 - <65 years Risk Factors: No Risk Factors Troponin: </= Normal Limit Score: 1 MDM MDM MDM Narrative Medical decision making narrative: 63-year-old male with atypical nonexertional dyspnea with no chest pain. Patient will undergo cardiac workup. No risks or history of DVT or PE. No history of underlying lung disease. Repeat exam patient is doing well at 10:45 PM. He has a negative workup. Normal exam. Both EKGs are unremarkable. He is not having any exertional chest pain. No exertional symptoms. He is having subjective dyspnea but nothing objective. He will be discharged home with outpatient follow-up. Patient I discussed all his test results. His repeat exam is normal and unchanged. History & Record Review Discussion w/independent historian: Patient Additional record(s) reviewed:: Prior inpatient record, Prior outpatient record, Prior ED visit and Prior labs Lab Data Attestation: I reviewed the patient's lab results. Lab results narrative: CBC normal. White count of 9. H&H 14 and 44. Platelets 194. Electrolytes unremarkable gap 5. BUN 21 creatinine 1.46. Glucose 113. Initial troponin is 12. 2-hour troponin is 9. Labs: Laboratory Results - last 24 hr 12/30/23 12/30/23 19:50 22:15 WBC 9.3 RBC 5.14 Hgb 14.6 Hct 44.3 MCV 86.2 MCH 28.4 MCHC 33.0 RDW Std Deviation 42.0 RDW Coeff of Ghanshyam 13.2 Plt Count 194 MPV 10.2 Immature Gran % (Auto) 0.200 Neut % (Auto) 62.9 Lymph % (Auto) 26.7 Finney % (Auto) 8.2 Eos % (Auto) 1.5 Baso % (Auto) 0.5 Absolute Neuts (auto) 5.9 Absolute Lymphs (auto) 2.49 Nucleated RBC % 0 Sodium 139 Potassium 3.8 Chloride 106 Carbon Dioxide 28.0 Anion Gap 5 BUN 21 H Creatinine 1.46 H Estim Creat Clear Calc 26.35 Est GFR (MDRD) Af Amer 63 Est GFR (MDRD) Non-Af 52 L BUN/Creatinine Ratio 14.4 Glucose 113 H Calcium 9.5 Troponin I High Sens 12 9 Radiography Chest X-Ray - ED: 1 View, Read by ED Physician, Normal, Heart, Lungs, Mediastinum, Bony Structures and No Acute Disease Diagnostic Testing: Clinical Impression(s) from Imaging Studies Chest X-Ray 12/30/23 20:40 IMPRESSION: 1. No radiographic evidence of acute cardiopulmonary disease. Electronically Signed: Steve Steel DO at 21:14 EST , Chest x-ray, portable, single view interpreted by myself shows no acute abnormality. Normal cardiac silhouette. Normal lungs. No edema. No effusions. No pneumonia. Rhythm Strip Rhythm Strip: Sinus Rhythm Rate: 68 Ectopy: None EKG Initial EKG: Attestation: I personally reviewed and interpreted this EKG as follows: Interpretation: Sinus Rhythm and No Acute Injury Pattern Comments: Normal sinus rhythm rate of 68 no acute signs of ME nor ischemia. Follow-up EKG: Attestation: I personally reviewed and interpreted this EKG as follows: Interpretation: Sinus Rhythm and No Acute Injury Pattern Comments: Repeat EKG at 21:18 PM shows normal sinus rhythm rate of 68. Again no ST elevation or depression. Unchanged from the initial. Both have an incomplete right bundle branch block. Discharge Plan Triage Chief Complaint: Chest Pain ED Provider: Jc Raza Dx/Rx/DC Orders Clinical Impression: Dyspnea, History of hypertension Instructions: ED Dyspnea Prescriptions: No Action omeprazole 40 mg capsule,delayed release(DR/EC) 40 mg PO DAILY Patient Comments: TAKE 1 CAPSULE Oral EVERY Day cholecalciferol (vitamin D3) [Vitamin D3] 50 mcg (2,000 unit) Capsule 50 mcg PO DAILY lisinopril 20 mg tablet 30 mg PO DAILY Creon 36,000-114,000- 180,000 unit capsule,delayed release(DR/EC) See Rx Instructions PO .COMPLEX Qty: 360 5RF Rx Instructions: take 1-2 capsules with snacks, take 2-3 capsules with meals Primary Care Provider: Bobby Fountain Referrals: Bobby Fountain DO [Primary Care Provider] - 3-5 Days if not improving Activity Restrictions/Additional Instructions: Your labs, both EKGs and your chest x-ray were unremarkable. Both heart enzymes were normal. Your exam is normal. Follow-up with primary care physician. Return if you are feeling a lot worse. Disposition Disposition: Home, Self Care
--- NOTE | 2023-12-30 21:04 | EKG12_ITS ---
Test Reason : DYSRHYTHMIA Blood Pressure : / mmHG Vent. Rate : 068 BPM Atrial Rate : 068 BPM P-R Int : 150 ms QRS Dur : 100 ms QT Int : 450 ms P-R-T Axes : 010 -07 045 degrees QTc Int : 478 ms Normal sinus rhythm Incomplete right bundle branch block Borderline ECG Confirmed by Steve Cordova ([id number]), commercial production editor BIRGIT GILLIAM ([id number]) on 12/31/2023 9:44:57 AM Referred By: ORLIN Confirmed By:Steve Cordova
[2023-12-30 21:41] VITALS: BP 144/96; PULSE 71; RESP 16; O2SAT 98
[2023-12-30 22:05] LABS: Reflex Troponin-HS? (from REC) Y
[2023-12-30 22:38] LABS: Troponin-I HS 9 pg/mL (3.0-78.0)
[2023-12-30 23:18] VITALS: BP 152/91; PULSE 74; RESP 16; TEMP 36.8; O2SAT 98
== END 2023-12-30 23:20 | disposition home or self-care (01) ==
PROVIDERS: Emergency Provider Emergency Medicine; Visit Provider Emergency Medicine
DX: R06.02 Shortness of breath (principal); I10 Essential (primary) hypertension; Z87.891 Personal history of nicotine dependence; Z90.49 Acquired absence of other specified parts of digestive tract; E78.00 Pure hypercholesterolemia, unspecified
CPT/HCPCS: 71045; 80048; 84484; 85025; 93005; 99283; A4216

== ENCOUNTER 2024-06-01 18:41 | Emergency (ER) | payer MEDICAID, SELFPAY ==
[2024-06-01 18:42] VITALS: BP 149/103; PULSE 117; RESP 22; TEMP 36.4; O2SAT 100; BMI 22.9
[2024-06-01 18:54] VITALS: O2SAT 100
--- NOTE | 2024-06-01 18:57 | EKG12_ITS ---
Test Reason : SOB Blood Pressure : / mmHG Vent. Rate : 058 BPM Atrial Rate : 058 BPM P-R Int : 146 ms QRS Dur : 104 ms QT Int : 474 ms P-R-T Axes : 062 009 050 degrees QTc Int : 465 ms Sinus bradycardia Incomplete right bundle branch block Borderline ECG Confirmed by CARTER VILLAVICENCIO, CARLOS ([id number]), electronic news gathering editor CHRIS LOMAS ([id number]) on 06/07/2024 8:37:18 AM Referred By: Confirmed By:ANAID MACHADO MD
[2024-06-01] MEDS: Aspirin 81 MG TAB.CHEW 324 MG PO (19:07)
[2024-06-01 19:14] LABS: Absolute Lymphocyte Count 2.54 X10^3/uL (0.83-4.51); Absolute Neutrophil Count 6.6 X10^3/uL (2.0-7.7); Basophil# 0.06 X10^3/uL; Basophil% 0.6 % (0-1); Eosinophil# 0.13 X10^3/uL; Eosinophils% 1.3 % (0-5); Hematocrit 48.1 % (40-54); Hemoglobin 15.8 g/dL (13.0-16.5); Lymphocyte # 2.54 X10^3/ul (0.83-4.51); Lymphocyte % 24.9 % (19-41); Mean Corp Hgb Conc 32.8 g/dL (32-36); Mean Corpuscular Hgb 28.7 pg (27.0-32.0); Mean Corpuscular Volume 87.3 fL (80-94); Mean Platelet Vol. 10.4 fl (6.2-12.0); Monocyte# 0.81 X10^3/uL; Monocyte% 7.9 % (0-10); NRBC Flagged by Analyzer 0 % (0-5); Neutrophil # 6.62 X10^3/uL (2.7-7.7); Platelet Count 215 K/mm3 (150-450); RBC Distribution Width CV 12.8 % (11.6-14.6); Red Blood Count 5.51 M/mm3 (4.6-6.2); White Blood Count 10.2 K/mm3 (4.4-11.0)
--- NOTE | 2024-06-01 19:15 | RAD_ITS ---
STUDY: X-RAY CHEST REASON FOR EXAM: Male, 63 years old. chest pain and dyspnea TECHNIQUE: Frontal and lateral views of the chest. COMPARISON: 12/30/2023. FINDINGS: There is hyperinflation of the lungs consistent with chronic obstructive lung disease (COPD). No infiltrates. No effusions. There is no demonstrated pleural abnormality. Normal size heart. Normal mediastinum and radha. Normal visualized pulmonary arteries. Normal visualized aortic arch and descending thoracic aorta. Normal visualized thoracic spine. Normal visualized ribs, clavicles, and shoulders. There is no demonstrated abnormality of the visualized soft tissue structures of the upper abdomen. RAD/Chest PA and Lateral IMPRESSION: There are findings consistent with COPD. There is no evidence of acute chest disease. Electronically Signed: João George MD at 19:42 EDT ,
[2024-06-01 19:27] LABS: D-Dimer Quantitative (DVT/PE) < 0.27 FEU/ug/m (0.27-0.49)
[2024-06-01 19:39] LABS: Anion Gap 8 (5-15); BUN 23 mg/dL (7-18); BUN/Creat Ratio 16.2 RATIO (10-20); Calcium,Total 9.4 mg/dL (8.5-10.1); Chloride 107 mmol/L (98-107); Creatinine, Serum 1.42 mg/dL (0.70-1.30); EST Glomerular Filtration Rate 53 mL/min (>60); Est Glom Filt Rate - Afr Amer 65 mL/min (>60); Estimated Creatinine Clearance 56.26 ml/min; Glucose 96 mg/dL (74-106); Potassium 3.4 mmol/L (3.5-5.1); Sodium Level 141 mmol/L (136-145); Troponin-I HS (w/2H Reflex) 5 pg/mL (3.0-78.0)
--- NOTE | 2024-06-01 20:15 | ED.VIS.CHEST ---
HPI History of Present Illness Chief Complaint: Shortness of Breath Detail of Chief Complaint: Dyspnea and chest pressure Informant: patient Onset/Context/Timing Onset: Days Activity at onset: sudden, light activity and exertion Timing: Intermittent Quality: Positive for Pressure and Tightness Location: Substernal and Left Parasternal Current Severity: Presently he is complaining of shortness of breath. Maximum Severity: Moderate Worsened By: Exertion; Not Worsened By Movement of Arm, Movement of Torso, Eating, Palpation, Breathing or Coughing Relieved By: Nothing Associated Symptoms: Positive for Dyspnea; Negative for Nausea, Vomiting, Diaphoresis, Cough, Fever, Lightheadedness, Acid Reflux or Palpitations Narrative Narrative: Patient is a 63-year-old male. He has history of hypertension and pancreatitis. His pancreatitis is related to alcohol consumption. He has not had an alcoholic beverage in some time. He denies history of VTE. He denies leg pain, swelling or discoloration. He denies any recent travel. There is no history of recent trauma. There is no family history of VTE. He does report increased shortness of breath with activity. He also reports chest discomfort with activity. His discomfort abates with rest. Patient denies fever, chills night sweats. Patient denies headache, visual, ocular auditory symptoms. Patient states he discontinued his antihypertensive meds for 5 days. He resumed them 2 to 3 days ago. Presently states he does not feel his normal self. Presently he denies chest discomfort. Patient denies abdominal pain, heartburn or indigestion. Patient denies black or maroon-colored stool. Patient denies any back or flank pain. Prior Similar Symptoms: No Recent Illness/Hospitalization: No CVD Risk Factors: Positive for Hypertension; Negative for Diabetes, Hypercholesterolemia, Family History 1' </=55 or Smoking (Former) PE Risk Factors: Negative for Recent Travel/Surgery, Recent Immobilization, Prior DVT or PE, Cancer or OCP + Smoking + >/=35 TAD Risk Factors: Positive for Hypertension; Negative for Marfan's Syndrome or Family History [facility] Medical History Wears glasses High cholesterol Non-smoker Hypertension History of echocardiogram Anxiety Hx of pancreatitis Pancreatitis Home Medications ?Medication ?Instructions ?Recorded ?Last Taken ?Type omeprazole 40 mg capsule,delayed 40 mg PO DAILY 12/17/21 12/17/21 History release cholecalciferol (vitamin D3) 50 50 mcg PO DAILY 01/01/23 Unknown History mcg (2,000 unit) capsule (Vitamin D3) [id number] See Rx Instructions PO .COMPLEX 06/11/23 Unknown Rx 36,000-114,000-180,000 unit #360 caps capsule,delay rel (Creon) lisinopril 20 mg tablet 30 mg PO DAILY 07/03/23 Unknown History Allergy/AdvReac Type Severity Reaction Status Date / Time amoxicillin (From Augmentin) Allergy Swelling Verified 06/01/24 18:41 clavulanic acid (From Allergy Swelling Verified 06/01/24 18:41 Augmentin) Penicillins Allergy PT UNSURE Verified 06/01/24 18:41 OF REACTION hydromorphone (From Dilaudid) AdvReac Other Verified 06/01/24 18:41 Family History Father Myocardial infarction Surgical History History of ERCP Hx of cholecystectomy S/P appendectomy Social History (Updated 06/01/24 @ 20:[address] Abhi Sahni MD) household members: none Smoking Status: Former smoker ROS ROS ED Constitutional Constitutional ED: Denies chills, fever(s), subjective, sweats or weight loss Eyes Eyes: Reports none ENT ENT ED: Denies ear pain, rhinorrhea or sore throat Cardiovascular Cardiovascular: Reports as per HPI; Denies orthopnea or paroxysmal nocturnal dyspnea Respiratory/Chest Respiratory/Chest: Reports dyspnea and dyspnea on exertion; Denies cough, orthopnea, paroxysmal nocturnal dyspnea or sputum Gastrointestinal Gastrointestinal: Denies abdominal pain, melena, nausea or vomiting Musculoskeletal Musculoskeletal: Denies arthralgias, back pain, myalgias or neck pain Integumentary Denies rash Neurologic Neurologic: Denies headache(s), paresthesias or weakness Psychiatric Psychiatric: Reports anxiety Endocrine Endocrinology: Denies cold intolerance or heat intolerance Hematologic/Lymphatic Hematologic/Lymphatic: Denies easy bleeding or easy bruising EXAM Physical Exam Const Vital Signs: 06/01/24 18:42 06/01/24 18:54 06/01/24 19:10 Temperature 97.6 F L Temperature Source Temporal Pulse Rate 117 H Respiratory Rate 22 H Respiratory Effort Short of Breath Respiratory Depth Shallow Respiratory Pattern Tachypnea Blood Pressure 149/103 H Blood Pressure Mean 118 Pulse Ox 100 Oxygen Delivery Method Room Air Room Air Room Air 06/01/24 20:41 Temperature Temperature Source Pulse Rate 56 L Respiratory Rate 15 Respiratory Effort Respiratory Depth Respiratory Pattern Blood Pressure 133/89 H Blood Pressure Mean 103 Pulse Ox 98 Oxygen Delivery Method Room Air Positive well nourished and well developed Constitutional Narrative: Patient is a new set of vital signs reveal elevated blood pressure and tachycardia. When I was in the room his pressure had normalized and his heart rate was in the 60s. General Appearance ED: well developed and NAD; Negative for pallor HEENT Reports TM's clear and moist mucous membranes HEENT Narrative: Posterior pharynx is normal. normocephalic and atraumatic Tympanic Membrane ED: Yes TM's clear Eyes PERRL and EOMs intact bilaterally General Eye ED: Negative for pale conjunctiva or scleral icterus Neck no lymphadenopathy, supple and no JVD Neck Narrative: Trachea is midline. There are no carotid bruits noted. Chest Wall inspection of chest normal and palpation of chest normal Resp normal respiratory effort and clear to auscultation bilaterally Cardio regular rate, regular rhythm, S1 normal heart sound, S2 normal heart sound and no murmurs GI normal to inspection, nondistended, normoactive bowel sounds, soft to palpation, non-tender, non-distended and no masses; Negative for hepatosplenomegaly Back/Spine no CVA tenderness Extremity normal to inspection Extremity Narrative: There is no asymmetry, swelling, discoloration, leg vein distention, palpable cords or tenderness along the distribution of the deep venous system. Patient is noted to have hair on his toes. He has palpable distal pulses. Neuro oriented x3, CN's II-XII intact bilaterally and no sensory deficits noted Sensorium / Orientation: awake and alert Psych Mood & Affect: anxious Skin no rashes or lesions noted and no wounds General Skin Exam: Negative for jaundice or pallor MDM MDM MDM Narrative Medical decision making narrative: Differential diagnosis cardiac versus noncardiac. Noncardiac would include pulm embolus, pneumonia, anxiety doubt pneumothorax since he has symmetric breath sounds. Patient's is not a good informant. It was difficult to obtain history and patient responded times he had chest discomfort with activity and at times he did not. The one symptom that has been consistent is dyspnea. To evaluate patient's presentation EKG, troponin, D-dimer, CBC to assess white count and rule out anemia was obtained. BMP was obtained to assess renal function in the event a CTA of the chest needs to be done. Chest x-ray was obtained to assess for pneumothorax, pneumonia. Lab Data Attestation: I reviewed the patient's lab results. Lab results narrative: CBC is normal. D-dimer is less than 0.27. Basic metabolic panel reveals a BUN of 23 and creatinine of 1.42 with an estimated GFR of 53. First troponin is 5. Second troponin is 4. This would rule out cardiac cause of his symptoms. PE was ruled out chest x-ray reveals no abnormality. Based on troponin results with both less than 7 negative predictive value 100% therefore will discharge to home with appropriate home-going structures. Patient was informed that the cause of his chest pain is unknown and that it is not his heart. This could be due to anxiety. Labs: Laboratory Results - last 24 hr 06/01/24 06/01/24 19:02 21:17 WBC 10.2 RBC 5.51 Hgb 15.8 Hct 48.1 MCV 87.3 MCH 28.7 MCHC 32.8 RDW Std Deviation 41.0 RDW Coeff of Ghanshyam 12.8 Plt Count 215 MPV 10.4 Immature Gran % (Auto) 0.300 Neut % (Auto) 65.0 Lymph % (Auto) 24.9 Whiteside % (Auto) 7.9 Eos % (Auto) 1.3 Baso % (Auto) 0.6 Absolute Neuts (auto) 6.6 Absolute Lymphs (auto) 2.54 Nucleated RBC % 0 D-Dimer Quant (PE/DVT) < 0.27 L Sodium 141 Potassium 3.4 L Chloride 107 Carbon Dioxide 26.0 Anion Gap 8 BUN 23 H Creatinine 1.42 H Estim Creat Clear Calc 56.26 Est GFR (MDRD) Af Amer 65 Est GFR (MDRD) Non-Af 53 L BUN/Creatinine Ratio 16.2 Glucose 96 Calcium 9.4 Troponin I High Sens 5 4 Radiography Chest X-Ray - ED: 2 View (Patient has some chronic changes of the lung parenchyma. Cardiac silhouette size normal. Hilum normal. Osseous trucks unremarkable. There is no evidence of congestive heart failure, pneumothorax or infiltrate. This was reviewed and interpreted by me at 1937.) and Read by ED Physician Diagnostic Testing: Clinical Impression(s) from Imaging Studies Chest X-Ray 06/01/24 19:15 IMPRESSION: There are findings consistent with COPD. There is no evidence of acute chest disease. Electronically Signed: João George MD at 19:42 EDT , EKG Initial EKG: Attestation: I personally reviewed and interpreted this EKG as follows: Interpretation: Sinus Bradycardia (Rate is 58. There is incomplete right bundle branch block with RR prime in V1 and V2. AL intervals under 46 ms. Cures duration 104 ms. QT duration 474 ms. Martin is normal. There is no acute ischemic changes noted.) Discharge Plan Triage Chief Complaint: Shortness of Breath ED Provider: Abhi Sahni Dx/Rx/DC Orders Clinical Impression: Chest pressure, Hypertension, Anterior pleuritic pain, Acute dyspnea, Bradycardia, sinus Instructions: ED Chest Pain, Noncardiac, ED Chest Pain, Uncertain Cause, ED Dyspnea Prescriptions: No Action omeprazole 40 mg capsule,delayed release(DR/EC) 40 mg PO DAILY Patient Comments: TAKE 1 CAPSULE Oral EVERY Day cholecalciferol (vitamin D3) [Vitamin D3] 50 mcg (2,000 unit) Capsule 50 mcg PO DAILY lisinopril 20 mg tablet 30 mg PO DAILY Creon 36,000-114,000- 180,000 unit capsule,delayed release(DR/EC) See Rx Instructions PO .COMPLEX Qty: 360 5RF Rx Instructions: take 1-2 capsules with snacks, take 2-3 capsules with meals Primary Care Provider: Bobby Fountain Referrals: Bobby Fountain DO [Primary Care Provider] - 3-5 Days Print Language: Slovak Disposition Disposition: Home, Self Care
[2024-06-01 20:41] VITALS: BP 133/89; PULSE 56; RESP 15; O2SAT 98
[2024-06-01 21:07] LABS: Reflex Troponin-HS? (from REC) Y
[2024-06-01 21:46] LABS: Troponin-I HS 4 pg/mL (3.0-78.0)
[2024-06-01 21:56] VITALS: BP 147/93; PULSE 62; RESP 23; TEMP 36.8; O2SAT 97
== END 2024-06-01 22:00 | disposition home or self-care (01) ==
PROVIDERS: Emergency Provider Emergency Medicine; Visit Provider Emergency Medicine
DX: R06.02 Shortness of breath (principal); R07.89 Other chest pain; R00.1 Bradycardia, unspecified; I10 Essential (primary) hypertension; E78.00 Pure hypercholesterolemia, unspecified; R07.81 Pleurodynia; Z79.899 Other long term (current) drug therapy; Z87.891 Personal history of nicotine dependence
CPT/HCPCS: 71046; 80048; 84484; 85025; 85379; 93005; 99284; A4216

== ENCOUNTER → 2024-07-08 | Outpatient (CLI) | payer MEDICAID, SELFPAY ==
[2024-07-09 12:09] LABS: Carbohydrate AG 19-9 10 U/mL (0-35); PSA, Free 1.62 ng/mL; PSA, Free % 25.8 % (.)
== END | disposition home or self-care (01) ==
LOC: LAB 09:07
PROVIDERS: Referring Provider Internal Medicine Gastroenterology; Visit Provider Internal Medicine Gastroenterology
DX: K85.90 Acute pancreatitis without necrosis or infection, unspecified (principal)
CPT/HCPCS: 36415; 84153; 84154; 86301

== ENCOUNTER 2024-07-15 11:06 | Emergency (ER) | payer MEDICAID, SELFPAY ==
[2024-07-15 11:07] VITALS: BP 134/90; PULSE 81; RESP 14; TEMP 36.3; O2SAT 100
--- NOTE | 2024-07-15 11:27 | EX.ED.DYSGE1 ---
HPI History of Present Illness Chief Complaint: Dizziness [facility] Medical History Wears glasses High cholesterol Non-smoker Hypertension History of echocardiogram Anxiety Hx of pancreatitis Pancreatitis Home Medications ?Medication ?Instructions ?Recorded ?Last Taken ?Type cholecalciferol (vitamin D3) 50 50 mcg PO DAILY 01/01/23 Unknown History mcg (2,000 unit) capsule (Vitamin D3) [id number] See Rx Instructions PO .COMPLEX 06/11/23 Unknown Rx 36,000-114,000-180,000 unit #360 caps capsule,delay rel (Creon) lisinopril 20 mg tablet 30 mg PO DAILY 07/03/23 Unknown History hydroxyzine HCl 25 mg tablet 25 mg PO TID PRN anxiety 7 days 07/15/24 Unknown Rx #21 tabs Allergy/AdvReac Type Severity Reaction Status Date / Time amoxicillin (From Augmentin) Allergy Swelling Verified 07/15/24 11:11 clavulanic acid (From Allergy Swelling Verified 07/15/24 11:11 Augmentin) Penicillins Allergy PT UNSURE Verified 07/15/24 11:11 OF REACTION hydromorphone (From Dilaudid) AdvReac Other Verified 07/15/24 11:11 Family History Father Myocardial infarction Surgical History History of ERCP Hx of cholecystectomy S/P appendectomy Social History (Updated 06/01/24 @ 20:[address] Abhi Sahni MD) household members: none Smoking Status: Former smoker EXAM Physical Exam Const Vital Signs: 07/15/24 11:07 07/15/24 11:51 07/15/24 13:00 Temperature 97.4 F L Temperature Source Temporal Pulse Rate 81 66 Respiratory Rate 14 22 H Respiratory Effort Short of Breath Respiratory Pattern Tachypnea Blood Pressure 134/90 H Blood Pressure Mean 104 Pulse Ox 100 Oxygen Delivery Method Room Air 07/15/24 13:03 07/15/24 15:00 07/15/24 15:25 Temperature 98.2 F Temperature Source Pulse Rate 66 62 61 Respiratory Rate 16 17 18 Respiratory Effort Respiratory Pattern Blood Pressure 115/86 H 109/77 106/73 Blood Pressure Mean 97 88 84 Pulse Ox 96 Oxygen Delivery Method [facility] [place] Medical decision making narrative: HISTORY OF PRESENT ILLNESS: 63-year-old male history of hyperlipidemia, hypertension, anxiety and presents with lightheadedness and dizziness. He states he has been feeling diffusely weak, feeling tired. Getting lightheaded when standing. Over the last several days. States he feels very anxious. Denies headache, chest pain, palpitations, abdominal pain. Denies any vomiting or diarrhea. Denies any focal numbness weakness or loss sensation. REVIEW OF SYSTEMS: Pertinent positives: Lightheadedness Pertinent negatives: Chest pain, shortness of breath PHYSICAL EXAM: Nursing triage notes reviewed, Vital signs reviewed Constitutional: please see mdm HENT: MMM Eyes: Pupils equal round and reactive to light, Extraocular muscles intact Neck: No stridor, no JVD, full neck ROM Lungs: Clear to auscultation, No wheezing or rales. No increased work of breathing, no conversational dyspnea, no accessory muscle use, no nasal flaring. No respiratory distress noted Heart: Regular rate and rhythm, No murmurs, No rubs and No gallops, 2+ distal pulses (radial, femoral, posterior tibial) in all extremities Abdomen: Soft, there is no tenderness, rigidity, rebound or guarding, no obvious peritoneal signs, no palpable pulsatile abdominal masses, no auscultated abdominal bruit : No CVAT Extremities: No edema Neuro: Alert and oriented x3, neuro exam at baseline, cranial nerves II through XII are intact. No pain with extraocular muscle movement. There is negative test of skew. 5 of 5 strength in upper and lower extremities in flexion extension. Intact sensation to light touch in upper and lower extremity dermatomes. No truncal or extremity ataxia. No dysdiadochokinesia. Normal gait. 2+ reflexes in upper and lower extremities. No meningeal signs. Negative Babinski. NIH of 0. Skin: No rash or lesions noted MEDICAL DECISION MAKING: Chief Complaint: Lightheadedness External records reviewed: Reviewed allergies, meds, vital signs and prior ED notes Factors affecting care: none Social determinants of health: none History obtained from others: none Consults: none [facility] Narrative: The patient was initially hemodynamically stable, afebrile and nontoxic-appearing. Exam anxious, no obvious focal cardiopulmonary abnormalities. I considered the following differential diagnosis: ACS, arrhythmia, anemia, e electrolyte disturbance, dehydration, kidney injury, posterior circulation CVA I obtained a broad lab and imaging workup to further elucidate etiology the patient complaint. The patient was initially very anxious ALL IMAGES (IF OBTAINED) HAVE BEEN PERSONALLY REVIEWED AND INTERPRETED BY MYSELF. CT scan of the head was negative I have personally reviewed the patient's chest x-ray. Chest x-ray is unremarkable for pulmonary edema, pneumothorax, pneumonia or focal cardiopulmonary abnormality. EKG with normal sinus rhythm, normal axis, normal intervals, no STEMI High-sensitivity troponin is negative, no evidence of myocardial ischemia x 2 CBC without leukocytosis, severe anemia, no thrombocytopenia. The synthesis of the patient's history, physical exam, labs images suggest no acute life or obtain etiology. The patient is appropriate discharge home The patient and/or family, caregivers express understanding. The patient and/or family, caregivers agrees with the plan. Shared decision making: I will have a discussion with the patient and or visitors regarding risk/benefits of further testing or admission. They will be made aware of of the risk/benefits inherent in this decision they will be given the opportunity to voice understanding. Total critical care time today provided was at least 0 minutes. This excludes separately billable procedures. Critical care time (if documented) is secondary to the patient having high probability of clinically significant/life threatening deterioration in the patient's condition which required my urgent intervention. Impression: 1. Chest pain 2. Anxiety 3. CKD Dispo: Discharge home This note was generated with [employer] dictation software. It may contain incorrect words, spelling, and punctuation that were not noted in review of the chart prior to signing. Lab Data Labs: Laboratory Results - last 24 hr 07/15/24 07/15/24 11:39 14:09 WBC 9.6 RBC 5.40 Hgb 15.8 Hct 47.3 MCV 87.6 MCH 29.3 MCHC 33.4 RDW Std Deviation 41.7 RDW Coeff of Ghanshyam 13.0 Plt Count 229 MPV 11.0 Sodium 138 Potassium 3.6 Chloride 105 Carbon Dioxide 23.0 Anion Gap 10 BUN 21 H Creatinine 1.46 H Est GFR (MDRD) Af Amer 63 Est GFR (MDRD) Non-Af 52 L BUN/Creatinine Ratio 14.4 Glucose 130 H Calcium 9.8 Troponin I High Sens 4 3 Radiography Diagnostic Testing: Clinical Impression(s) from Imaging Studies Brain CT 07/15/24 11:55 IMPRESSION: Normal unenhanced CT scan of the brain. Stable opacification of the right maxillary sinus. Electronically Signed: Tyrone Melvin MD at 12:33 EDT , Chest X-Ray 07/15/24 12:15 IMPRESSION: Hyperinflation. The lungs are clear. Electronically Signed: Tyrone Melvin MD at 12:34 EDT , Discharge Plan Triage Chief Complaint: Dizziness ED Provider: Jeferson Aleman Dx/Rx/DC Orders Instructions: ED Dizziness, Uncertain Cause Prescriptions: New hydroxyzine HCl 25 mg tablet 25 mg PO TID PRN (Reason: anxiety) 7 Days Qty: 21 0RF No Action cholecalciferol (vitamin D3) [Vitamin D3] 50 mcg (2,000 unit) Capsule 50 mcg PO DAILY lisinopril 20 mg tablet 30 mg PO DAILY Creon 36,000-114,000- 180,000 unit capsule,delayed release(DR/EC) See Rx Instructions PO .COMPLEX Qty: 360 5RF Rx Instructions: take 1-2 capsules with snacks, take 2-3 capsules with meals Primary Care Provider: Bobby Fountain Referrals: Oswaldo Gray DO [Med Staff - Super[employer]] - Bobby Fountain DO [Primary Care Provider] - Activity Restrictions/Additional Instructions: Thank you for trusting us with your care today! Your labs and images were reassuring. Please take Tylenol (2 pills, 650 mg), ibuprofen (2 pills, 400 mg) every 6 hours as needed for pain and fever control. Please take Atarax as needed for anxiety at home. Please return to the emergency department if your symptoms change or worsen. Please follow with your primary care physician for further outpatient evaluation and management. Print Language: Nepalese Disposition Disposition: Home, Self Care
--- NOTE | 2024-07-15 11:53 | ED.RN ---
PATIENT HYPERVENTILATING WHEN THIS RN IN ROOM TO DO ASSESSMENT. THIS RN INSTRUCTED PATIENT TO TAKE SLOW DEEP BREATHS TO HELP WITH SHAKING AND GENERALIZED NUMBNESS/TINGLING. PT DENIES SYMPTOMS OTHER THAN DIZZINESS AND SHORTNESS OF BREATH. LUNG SOUNDS CLEAR. NOT COMPLAINING OF PAIN.
--- NOTE | 2024-07-15 11:55 | EKG12_ITS ---
Test Reason : DIZZINESS Blood Pressure : / mmHG Vent. Rate : 060 BPM Atrial Rate : 060 BPM P-R Int : 160 ms QRS Dur : 102 ms QT Int : 474 ms P-R-T Axes : 034 025 056 degrees QTc Int : 474 ms Normal sinus rhythm Incomplete right bundle branch block Borderline ECG When compared with ECG of 01-JUN-2024 19:23, No significant change was found Confirmed by Steve Cordova ([id number]), food expeditor CHRIS LOMAS ([id number]) on 07/19/2024 1:19:27 PM Referred By: Confirmed By:Steve Cordova
--- NOTE | 2024-07-15 11:55 | CT_ITS ---
STUDY: CT BRAIN WITHOUT CONTRAST REASON FOR EXAM: Male, 63 years old. Dizziness RADIATION DOSAGE (If Supplied By Facility): CTDIvol = ( 44.99 ) mGy, DLP = ( 812.98 ) mGycm TECHNIQUE: Transaxial CT imaging of the brain was performed without administration of intravenous contrast material. Individualized dose optimization techniques were used for this CT. COMPARISON: Comparison is made with prior study dated May 05, 2023. FINDINGS: Normal soft tissue structures. Normal calvarium. Normal size ventricles and extra-axial spaces for the patient''s age. Normal white matter tracts of the cerebral hemispheres. Normal basal ganglia and thalami. Normal brainstem. Normal cerebellum. There is no intracranial hemorrhage. There are no findings of an acute ischemic infarction. There is partial opacification of the right maxillary sinus. This is unchanged. CT/Brain/Head without Contrast IMPRESSION: Normal unenhanced CT scan of the brain. Stable opacification of the right maxillary sinus. Electronically Signed: Tyrone Melvin MD at 12:33 EDT ,
[2024-07-15] MEDS: Ondansetron 4 MG/2 ML Vial IV (12:05)
[2024-07-15] MEDS: 0.9% Normal Saline (500mL Bag) 500 ML 1000 ML IV (12:05)
[2024-07-15] MEDS: LORazepam 2 MG/ML Syringe IV (12:05)
[2024-07-15 12:10] LABS: Hematocrit 47.3 % (40-54); Hemoglobin 15.8 g/dL (13.0-16.5); Mean Corp Hgb Conc 33.4 g/dL (32-36); Mean Corpuscular Hgb 29.3 pg (27.0-32.0); Mean Corpuscular Volume 87.6 fL (80-94); Platelet Count 229 K/mm3 (150-450); RBC Distribution Width SD 41.7 fl (35.1-43.9); White Blood Count 9.6 K/mm3 (4.4-11.0)
--- NOTE | 2024-07-15 12:15 | RAD_ITS ---
STUDY: X-RAY CHEST REASON FOR EXAM: Male, 63 years old. Dizziness, lightheadedness TECHNIQUE: Single AP portable view of the chest. COMPARISON: Comparison is made with prior study June 01, 2024. FINDINGS: EKG electrodes are seen. Hyperinflation. The lungs are clear. There is no demonstrated pleural abnormality. Normal size heart. Normal mediastinum and radha. Normal visualized pulmonary arteries. There is atherosclerotic tortuosity of the aortic arch and descending thoracic aorta. There are degenerative changes of the visualized thoracic spine. Normal visualized ribs, clavicles, and shoulders. There is no demonstrated abnormality of the visualized soft tissue structures of the upper abdomen. RAD/Chest 1 View (Portable) IMPRESSION: Hyperinflation. The lungs are clear. Electronically Signed: Tyrone Melvin MD at 12:34 EDT ,
[2024-07-15 12:49] LABS: Anion Gap 10 (5-15); BUN 21 mg/dL (7-18); BUN/Creat Ratio 14.4 RATIO (10-20); Calcium,Total 9.8 mg/dL (8.5-10.1); Chloride 105 mmol/L (98-107); Creatinine, Serum 1.46 mg/dL (0.70-1.30); EST Glomerular Filtration Rate 52 mL/min (>60); Est Glom Filt Rate - Afr Amer 63 mL/min (>60); Glucose 130 mg/dL (74-106); Potassium 3.6 mmol/L (3.5-5.1); Sodium Level 138 mmol/L (136-145); Troponin-I HS (w/2H Reflex) 4 pg/mL (3.0-78.0)
[2024-07-15 13:00] VITALS: PULSE 66; RESP 22
[2024-07-15 13:03] VITALS: BP 115/86; PULSE 66; RESP 16
[2024-07-15 14:04] LABS: Reflex Troponin-HS? (from REC) Y
[2024-07-15 14:42] LABS: Troponin-I HS 3 pg/mL (3.0-78.0)
[2024-07-15 15:00] VITALS: BP 109/77; PULSE 62; RESP 17
[2024-07-15 15:25] VITALS: BP 106/73; PULSE 61; RESP 18; TEMP 36.8; O2SAT 96
== END 2024-07-15 15:46 | disposition home or self-care (01) ==
PROVIDERS: Emergency Provider Emergency Medicine; Visit Provider Emergency Medicine
DX: R42 Dizziness and giddiness (principal); R07.9 Chest pain, unspecified; Z87.891 Personal history of nicotine dependence; E78.00 Pure hypercholesterolemia, unspecified; N18.9 Chronic kidney disease, unspecified; F41.9 Anxiety disorder, unspecified; I12.9 Hypertensive chronic kidney disease with stage 1 through stage 4 chronic kidney disease, or unspecified chronic kidney disease
CPT/HCPCS: 70450; 71045; 80048; 84484; 85027; 93005; 96361; 96374; 96375; 99285; J7040; A4216; J2405

== ENCOUNTER 2024-11-20 16:49 | Emergency (ER) | payer MEDICAID, SELFPAY ==
[2024-11-20 16:50] VITALS: BP 137/109; PULSE 98; RESP 16; TEMP 36.3; O2SAT 100; BMI 23.7
[2024-11-20 17:00] VITALS: O2SAT 99
--- NOTE | 2024-11-20 17:11 | EKG12_ITS ---
Test Reason : SOB Blood Pressure : */* mmHG Vent. Rate : 84 BPM Atrial Rate : 84 BPM P-R Int : 144 ms QRS Dur : 100 ms QT Int : 392 ms P-R-T Axes : 64 9 59 degrees QTcB Int : 463 ms Normal sinus rhythm Low voltage QRS Cannot rule out Inferior infarct , age undetermined Abnormal ECG Confirmed by CARTER VILLAVICENCIO, CARLOS ([id number]), editor & co founder CHRIS LOMAS ([id number]) on 11/23/2024 6:11:38 AM Referred By: RAMY Confirmed By: CARLOS MACHADO MD
--- NOTE | 2024-11-20 17:14 | ED.VIS.DYS ---
HPI <GREER Lo - Last Filed: 11/20/24 21:57> History of Present Illness Chief Complaint: Shortness of Breath Narrative Narrative: 63-year-old male with past medical history of hypertension, pancreatitis states yesterday he had an episode of dry mouth, generalized weakness and shortness of breath. He states he felt short of breath for about an hour and then weak most of the evening. He checked his blood pressure and it was 150s/90s which concerned him. He felt fine this morning and went to run some errands and states when he got home this afternoon he felt similarly. He did not check his vital signs again but he is concerned his blood pressure is running high and that he could be at risk for heart attack. He has no chest pain. He has no fever or upper respiratory symptoms. He is nauseous without vomiting and has no abdominal pain, diarrhea, melena or hematochezia. [facility] <GREER Lo - Last Filed: 11/20/24 21:57> [facility] Medical History Wears glasses High cholesterol Non-smoker Hypertension History of echocardiogram Anxiety Hx of pancreatitis Pancreatitis Home Medications ?Medication ?Instructions ?Recorded ?Last Taken ?Type cholecalciferol (vitamin D3) 50 50 mcg PO DAILY 01/01/23 Unknown History mcg (2,000 unit) capsule (Vitamin D3) lisinopril 20 mg tablet 30 mg PO DAILY 07/03/23 Unknown History hydroxyzine HCl 25 mg tablet 25 mg PO TID PRN anxiety 7 days 07/15/24 Unknown Rx #21 tabs [id number]-[id number] 2 cap PO TIDCM 90 days #540 caps 07/23/24 Unknown Rx 36,000-114,000-180,000 unit capsule,delay rel (Creon) Allergy/AdvReac Type Severity Reaction Status Date / Time amoxicillin (From Augmentin) Allergy Swelling Verified 11/20/24 16:52 clavulanic acid (From Allergy Swelling Verified 11/20/24 16:52 Augmentin) Penicillins Allergy PT UNSURE Verified 11/20/24 16:52 OF REACTION hydromorphone (From Dilaudid) AdvReac Other Verified 11/20/24 16:52 Family History Father Myocardial infarction Surgical History History of ERCP Hx of cholecystectomy S/P appendectomy Social History (Updated 06/01/24 @ 20:[address] Abhi Sahni MD) household members: none Smoking Status: Former smoker ROS <GREER Lo - Last Filed: 11/20/24 21:57> ROS ED ROS Narrative Constitutional: Negative for fever, chills, malaise. Respiratory: Positive for shortness of breath,. Negative for cough, orthopnea. GI: Negative for abdominal pain, nausea, vomiting, diarrhea. EXAM <GREER Lo - Last Filed: 11/20/24 21:57> Physical Exam Narrative Exam Narrative: CONST: Patient sitting in no acute distress. EYES: Normal inspection. NECK: Normal inspection. RESP: No respiratory distress, CTAB. CVS: Regular rate and rhythm, no murmur, no gallop. ABD: Soft and nontender, no guarding or rebound, nondistended. SKIN: Color normal, no rash, warm, dry, intact. EXTREMITIES: Normal appearance, no pedal edema. NEURO: Alert and answering questions appropriately. PSYCH: Normal affect. Const Vital Signs: 11/20/24 16:50 11/20/24 17:00 11/20/24 18:59 Temperature 97.4 F L 98.0 F Temperature Source Oral Pulse Rate 98 73 Respiratory Rate 16 18 Respiratory Effort Normal Non-Labored Respiratory Depth Normal Respiratory Pattern Normal Blood Pressure 137/109 H 127/75 H Blood Pressure Mean 118 92 Pulse Ox 100 100 Oxygen Delivery Method Room Air Room Air <Dr. Prince Quintanilla, DO - Last Filed: 11/20/24 18:57> Physical Exam Const Vital Signs: 11/20/24 16:50 11/20/24 17:00 11/20/24 18:59 Temperature 97.4 F L 98.0 F Temperature Source Oral Pulse Rate 98 73 Respiratory Rate 16 18 Respiratory Effort Normal Non-Labored Respiratory Depth Normal Respiratory Pattern Normal Blood Pressure 137/109 H 127/75 H Blood Pressure Mean 118 92 Pulse Ox 100 100 Oxygen Delivery Method Room Air Room Air MDM <GREER Lo - Last Filed: 11/20/24 21:57> MDM MDM Narrative Medical decision making narrative: Patient presents with shortness of breath that started yesterday. He denies chest pain or cough. He complains of occasional lightheadedness and dry mouth. He appears well and nontoxic. His vital signs are stable. He has no respiratory distress and a normal cardiopulmonary exam. CBC unremarkable, creatinine is 1.4 around his baseline. Lipase slightly elevated at 190. He has no abdominal pain or GI symptoms and I suspect it is chronically high from his history of pancreatitis. He is on Creon. EKG is nonischemic and troponin is 4. Viral swab and chest x-ray are negative. His vital signs have been normal for the entirety of his stay and again he is in no respiratory distress so I feel he can be discharged home with primary care follow-up. Lab Data Attestation: I reviewed the patient's lab results. Labs: Laboratory Results - last 24 hr 11/20/24 11/20/24 17:08 17:42 WBC 10.7 RBC 5.59 Hgb 17.0 H Hct 47.8 MCV 85.5 MCH 30.4 MCHC 35.6 RDW Std Deviation 39.3 RDW Coeff of Ghanshyam 12.6 Plt Count 220 MPV 10.8 Immature Gran % (Auto) 0.200 Neut % (Auto) 68.3 Lymph % (Auto) 23.0 [place] % (Auto) 6.8 Eos % (Auto) 1.1 Baso % (Auto) 0.6 Absolute Neuts (auto) 7.3 Absolute Lymphs (auto) 2.46 Nucleated RBC % 0 Sodium 136 Potassium 4.0 Chloride 101 Carbon Dioxide 27.0 Anion Gap 8 BUN 27 H Creatinine 1.40 H Estim Creat Clear Calc 57.52 Est GFR (MDRD) Af Amer 66 Est GFR (MDRD) Non-Af 54 L BUN/Creatinine Ratio 19.3 Glucose 106 Calcium 9.7 Total Bilirubin 0.80 AST 22 ALT 40 Alkaline Phosphatase 98 Troponin I High Sens 4 Total Protein 8.4 H Albumin 4.4 Globulin 4.0 Albumin/Globulin Ratio 1.1 Lipase 190 H Radiography Diagnostic Testing: Clinical Impression(s) from Imaging Studies Chest X-Ray 11/20/24 17:19 IMPRESSION: No acute radiographic abnormalities. Electronically Signed: Aime Baires MD at 17:57 EST , <Dr. Prince Quintanilla, DO - Last Filed: 11/20/24 18:57> [facility] Lab Data Labs: Laboratory Results - last 24 hr 11/20/24 11/20/24 17:08 17:42 WBC 10.7 RBC 5.59 Hgb 17.0 H Hct 47.8 MCV 85.5 MCH 30.4 MCHC 35.6 RDW Std Deviation 39.3 RDW Coeff of Ghanshyam 12.6 Plt Count 220 MPV 10.8 Immature Gran % (Auto) 0.200 Neut % (Auto) 68.3 Lymph % (Auto) 23.0 [place] % (Auto) 6.8 Eos % (Auto) 1.1 Baso % (Auto) 0.6 Absolute Neuts (auto) 7.3 Absolute Lymphs (auto) 2.46 Nucleated RBC % 0 Sodium 136 Potassium 4.0 Chloride 101 Carbon Dioxide 27.0 Anion Gap 8 BUN 27 H Creatinine 1.40 H Estim Creat Clear Calc 57.52 Est GFR (MDRD) Af Amer 66 Est GFR (MDRD) Non-Af 54 L BUN/Creatinine Ratio 19.3 Glucose 106 Calcium 9.7 Total Bilirubin 0.80 AST 22 ALT 40 Alkaline Phosphatase 98 Troponin I High Sens 4 Total Protein 8.4 H Albumin 4.4 Globulin 4.0 Albumin/Globulin Ratio 1.1 Lipase 190 H Radiography Diagnostic Testing: Clinical Impression(s) from Imaging Studies Chest X-Ray 11/20/24 17:19 IMPRESSION: No acute radiographic abnormalities. Electronically Signed: Aime Baires MD at 17:57 EST , Treatment and Re-Evaluation :: I have personally performed a face to face assessment of the patient and have reviewed the OLGA Note. I performed a substantive portion of the visit including all aspects of the following. My damon findings include: History: Patient presents with shortness of breath that began yesterday. Patient states he feels like he cannot catch his breath. Patient states that sometimes it is worse with exertion. Patient states that sometimes he feels anxious and his breathing gets better if he is able to take a deep breath. Patient admits to some subjective chills. Patient denies any cough. Patient denies any fevers. Patient denies any sore throat or rhinorrhea. Patient states he gets intermittent cramping and spasms in his lower chest. Patient states he feels lightheaded. Patient states he checked his blood pressure at home yesterday and it was 158/98. Exam: Vital signs are stable. Patient is afebrile. Patient is in no acute distress. Oral mucosa is pink and moist. Neck is supple. Trachea is midline. There is no JVD. Heart was regular rate and rhythm. Lungs are clear and equal bilaterally. There is good respiratory effort noted. Abdomen is soft. Bowel sounds are normal. There is no tenderness. Cranial nerves II through XII are intact. There are no focal motor or sensory deficits noted. Medical Decision Making: Differential diagnosis includes cardiac dysrhythmia, cardiac ischemia, electrolyte abnormality, pancreatitis, gastroesophageal reflux disease, pneumonia, viral illness, and electrolyte abnormality. EKG will be obtained to assess for cardiac dysrhythmia and cardiac ischemia. Chest x-ray will be obtained to assess for pneumonia and pneumothorax. CBC will be obtained to assess for leukocytosis and anemia. Comprehensive metabolic profile will be obtained to assess for electrolyte abnormality, renal function, and hepatic function. Lipase will be obtained to assess for pancreatitis. High-sensitivity troponin will be obtained to assess for cardiac ischemia. CBC was reviewed and was essentially within normal limits. Comprehensive metabolic profile was reviewed. Creatinine was slightly elevated at 1.4 and BUN was slightly elevated at 27. These are consistent with previous results. Lipase was reviewed and was slightly elevated at 190. High-sensitivity troponin was reviewed and was normal at 4. COVID-19 PCR was reviewed and was negative. Influenza PCR was reviewed and was negative for influenza A and influenza B. RSV PCR was reviewed and was negative. PA and lateral chest x-ray was obtained. There are 2 views. On my independent interpretation, lung rojas are clear. There is normal cardiac silhouette. Bony thorax is normal. There is no acute process noted. Radiologist also interpreted the x-ray and agrees. Patient was advised of his findings. Patient instructed to continue his Creon as previously prescribed. Patient was instructed to start with a bland diet and advance as tolerated. Patient was instructed to follow-up with his primary care physician in 5 to 7 days. Patient understood and was agreeable with the plan. All questions were answered. Discharge Plan Triage Chief Complaint: Shortness of Breath ED Midlevel Provider: Lavonne Vega ED Provider: Prince Quintanilla Dx/Rx/DC Orders Clinical Impression: Dyspnea, Pancreatitis Instructions: ED Dyspnea Prescriptions: No Action cholecalciferol (vitamin D3) [Vitamin D3] 50 mcg (2,000 unit) Capsule 50 mcg PO DAILY lisinopril 20 mg tablet 30 mg PO DAILY hydroxyzine HCl 25 mg tablet 25 mg PO TID PRN (Reason: anxiety) 7 Days Qty: 21 0RF Creon 36,000-114,000- 180,000 unit capsule,delayed release(DR/EC) 2 cap PO TIDCM 90 Days Qty: 540 5RF Primary Care Provider: Bobby Fountain Referrals: Bobby Fountain DO [Primary Care Provider] - Activity Restrictions/Additional Instructions: I recommend you keep a blood pressure log once a day. Check it at the same time each morning and write it down and take it to your primary care follow-up appointment. If you have new or worsening symptoms such as chest pain or worsening breathing please come back to the emergency room. Print Language: Slovak Disposition Disposition: Home, Self Care Discharge Date/Time: 11/20/24 19:02
--- NOTE | 2024-11-20 17:19 | RAD_ITS ---
INDICATION: dyspnea EXAMINATION/TECHNIQUE: X-RAY - XR Chest 2 Views COMPARISON: 07/15/2024. FINDINGS: The lungs are clear. The cardiomediastinal silhouette is unremarkable. No pleural effusion or pneumothorax. No acute osseous abnormalities. RAD/Chest PA and Lateral IMPRESSION: No acute radiographic abnormalities. Electronically Signed: Aime Baires MD at 17:57 EST ,
[2024-11-20 17:25] LABS: Absolute Lymphocyte Count 2.46 X10^3/uL (0.83-4.51); Absolute Neutrophil Count 7.3 X10^3/uL (2.0-7.7); Basophil# 0.06 X10^3/uL; Basophil% 0.6 % (0-1); Eosinophil# 0.12 X10^3/uL; Eosinophils% 1.1 % (0-5); Hematocrit 47.8 % (40-54); Lymphocyte # 2.46 X10^3/ul (0.83-4.51); Mean Corp Hgb Conc 35.6 g/dL (32-36); Mean Corpuscular Hgb 30.4 pg (27.0-32.0); Mean Corpuscular Volume 85.5 fL (80-94); Mean Platelet Vol. 10.8 fl (6.2-12.0); Monocyte# 0.73 X10^3/uL; Monocyte% 6.8 % (0-10); NRBC Flagged by Analyzer 0 % (0-5); Neutrophil # 7.29 X10^3/uL (2.7-7.7); Neutrophil % 68.3 % (47-70); Platelet Count 220 K/mm3 (150-450); RBC Distribution Width CV 12.6 % (11.6-14.6); RBC Distribution Width SD 39.3 fl (35.1-43.9); Red Blood Count 5.59 M/mm3 (4.6-6.2); White Blood Count 10.7 K/mm3 (4.4-11.0)
[2024-11-20 17:44] LABS: ALB/GLOB Ratio 1.1 RATIO (0.9-2.4); AST(SGOT) 22 U/L (15-37); Alanine Aminotransfer ALT/SGPT 40 U/L (16-61); Albumin, Serum 4.4 g/dL (3.2-5.0); Alkaline Phosphatase 98 U/L (45-117); Anion Gap 8 (5-15); BUN 27 mg/dL (7-18); BUN/Creat Ratio 19.3 RATIO (10-20); Calcium,Total 9.7 mg/dL (8.5-10.1); Chloride 101 mmol/L (98-107); EST Glomerular Filtration Rate 54 mL/min (>60); Est Glom Filt Rate - Afr Amer 66 mL/min (>60); Estimated Creatinine Clearance 57.52 ml/min; Glucose 106 mg/dL (74-106); Protein, Total 8.4 g/dL (6.4-8.2); Sodium Level 136 mmol/L (136-145); Troponin-I HS 4 pg/mL (3.0-78.0)
[2024-11-20 17:55] LABS: Lipase 190 U/L (13-75)
[2024-11-20 18:59] VITALS: BP 127/75; PULSE 73; RESP 18; TEMP 36.7; O2SAT 100
== END 2024-11-20 19:02 | disposition home or self-care (01) ==
PROVIDERS: Physician Assistant; Emergency Provider Emergency Medicine; Visit Provider Emergency Medicine
DX: R06.00 Dyspnea, unspecified (principal); K85.90 Acute pancreatitis without necrosis or infection, unspecified; I10 Essential (primary) hypertension; E78.00 Pure hypercholesterolemia, unspecified; Z87.891 Personal history of nicotine dependence
CPT/HCPCS: 71046; 80053; 83690; 84484; 85025; 87631; 93005; 99283; A4216

== ENCOUNTER 2024-12-22 12:27 | Emergency (ER) | payer MEDICAID, SELFPAY ==
[2024-12-22 12:29] VITALS: BP 127/97; PULSE 86; RESP 16; TEMP 36.6; O2SAT 100
[2024-12-22 13:49] LABS: Absolute Lymphocyte Count 1.58 X10^3/uL (0.83-4.51); Absolute Neutrophil Count 8.2 X10^3/uL (2.0-7.7); Basophil# 0.06 X10^3/uL; Basophil% 0.6 % (0-1); Eosinophil# 0.03 X10^3/uL; Eosinophils% 0.3 % (0-5); Hematocrit 47.1 % (40-54); Hemoglobin 16.2 g/dL (13.0-16.5); Lymphocyte # 1.58 X10^3/ul (0.83-4.51); Mean Corp Hgb Conc 34.4 g/dL (32-36); Mean Corpuscular Volume 87.2 fL (80-94); Mean Platelet Vol. 11.4 fl (6.2-12.0); Monocyte# 0.62 X10^3/uL; Monocyte% 5.9 % (0-10); NRBC Flagged by Analyzer 0 % (0-5); Neutrophil # 8.19 X10^3/uL (2.7-7.7); Neutrophil % 77.8 % (47-70); Platelet Count 219 K/mm3 (150-450); RBC Distribution Width CV 12.6 % (11.6-14.6); RBC Distribution Width SD 40.1 fl (35.1-43.9); White Blood Count 10.5 K/mm3 (4.4-11.0)
[2024-12-22 14:17] LABS: Anion Gap 16 (5-15); BUN 21 mg/dL (4-19); BUN/Creat Ratio 16.3 RATIO (10-20); Calcium 9.7 mg/dL (7.6-11.0); Carbon Dioxide 20.4 mmol/L (22.0-29.0); Chloride 100 mmol/L (96-108); Creatinine, Serum 1.3 mg/dL (0.8-1.3); EST Glomerular Filtration Rate 61 (>60); Glucose 116 mg/dL (70-99); Potassium 4.1 mmol/L (3.3-5.1); Sodium Level 137 mmol/L (133-145)
[2024-12-22 14:24] VITALS: RESP 17; O2SAT 100
[2024-12-22 14:28] VITALS: BMI 23.9
[2024-12-22 14:37] VITALS: BP 128/88; PULSE 73; RESP 14; O2SAT 98
--- NOTE | 2024-12-22 15:17 | RAD_ITS ---
PROCEDURE: PA and lateral chest radiographs. REASON FOR EXAM: Shortness of breath. TECHNIQUE: PA and lateral chest radiographs were obtained. COMPARISON: Comparison is made with prior study dated November 20, 2024. FINDINGS: EKG electrodes are seen. Hyperinflation. The lungs are clear. Tortuosity of the thoracic aorta. The bones are unremarkable. RAD/Chest PA and Lateral IMPRESSION: Hyperinflation. The lungs are clear. Stable examination. Reading Location: [id number]
--- NOTE | 2024-12-22 15:17 | EX.ED.DYSGE1 ---
HPI History of Present Illness Chief Complaint: Weakness Informant: patient Onset/Context/Timing Onset: Weeks Context: Gradual Onset Timing: Intermittent Current Severity: Gone Maximum Severity: Mild Narrative Narrative: 64-year-old male history of hypertension pancreatitis. States he has episodes that comes in waves where he feels just generally weak. He says a rash that comes over his back. Denies any chest pain. No cough. No fever. Denies any dysuria or change in his bowel movements. No weight change. Mild nausea no vomiting nor diarrhea. No melena. Symptoms been going on for some time. It may be related to his anxiety states. Denies any abdominal pain. No chest pain. Prior similar symptoms: Yes Recent Illness/Hospitalization: No PFSH PFSH Medical History Wears glasses High cholesterol Non-smoker Hypertension History of echocardiogram Anxiety Hx of pancreatitis Pancreatitis Home Medications ?Medication ?Instructions ?Recorded ?Last Taken ?Type cholecalciferol (vitamin D3) 50 50 mcg PO DAILY 01/01/23 Unknown History mcg (2,000 unit) capsule (Vitamin D3) lisinopril 20 mg tablet 30 mg PO DAILY 07/03/23 Unknown History hydroxyzine HCl 25 mg tablet 25 mg PO TID PRN anxiety 7 days 07/15/24 Unknown Rx #21 tabs [id number] 2 cap PO TIDCM 90 days #540 caps 07/23/24 Unknown Rx 36,000-114,000-180,000 unit capsule,delay rel (Creon) Allergy/AdvReac Type Severity Reaction Status Date / Time amoxicillin (From Augmentin) Allergy Swelling Verified 12/22/24 12:31 clavulanic acid (From Allergy Swelling Verified 12/22/24 12:31 Augmentin) Penicillins Allergy PT UNSURE Verified 12/22/24 12:31 OF REACTION hydromorphone (From Dilaudid) AdvReac Other Verified 12/22/24 12:31 Family History Father Myocardial infarction Surgical History History of ERCP Hx of cholecystectomy S/P appendectomy Social History household members: none Smoking Status: Former smoker ROS ROS ED ROS Narrative Generalized weakness. Constitutional Constitutional ED: Denies chills or fever(s) Eyes Eyes: Denies blurry vision ENT ENT ED: Denies ear pain Cardiovascular Cardiovascular: Denies chest pain Respiratory/Chest Respiratory/Chest: Denies cough or dyspnea Gastrointestinal Gastrointestinal: Reports nausea; Denies abdominal pain, constipation, diarrhea, melena or vomiting Genitourinary Genitourinary ED: Denies dysuria or hematuria Musculoskeletal Musculoskeletal: Denies arthralgias or back pain Integumentary Denies abscess or Abrasions Neurologic Neurologic: Denies headache(s) Psychiatric Psychiatric: Reports anxiety Endocrine Endocrinology: Denies cold intolerance Hematologic/Lymphatic Hematologic/Lymphatic: Reports none Allergic/Immunologic Allergic/Immunologic ED: Denies mouth swelling, tongue swelling or urticaria EXAM Physical Exam Narrative Exam Narrative: Very well-appearing 64-year-old male. Vital signs are stable afebrile. Pulse ox 100% on room air no hypoxia. Is entered the room he is sitting upright in bed. No one else is in the room. No distress. H EENT exam unremarkable. Pupils round react light. Moist mucous membranes. Normal speech. No droop. Neck nontender no lymphadenopathy. Lungs clear to auscultation bilaterally. Heart regular rhythm no murmur. Abdomen is soft and nontender no peritoneal signs. No distention. Moving all 4 extremities. Nontender no edema. Normal strength. No drift. Back nontender. Neurologically is awake alert answering questions following commands. Skin no rashes. No petechiae appropriate. Repeat his temperature was 98 4 orally. Const Vital Signs: 12/22/24 12:29 12/22/24 14:24 12/22/24 14:24 Temperature 97.9 F Temperature Source Temporal Pulse Rate 86 Respiratory Rate 16 17 Respiratory Effort Respiratory Pattern Blood Pressure 127/97 H Blood Pressure Mean 107 Pulse Ox 100 100 Oxygen Delivery Method Room Air Room Air Room Air 12/22/24 14:24 12/22/24 14:37 12/22/24 16:00 Temperature Temperature Source Pulse Rate 73 80 Respiratory Rate 14 16 Respiratory Effort Short of Breath Respiratory Pattern Normal Blood Pressure 128/88 H 129/94 H Blood Pressure Mean 101 105 Pulse Ox 98 99 Oxygen Delivery Method Room Air Positive well nourished and well developed; Negative for obese, cachectic, contractures or unkempt General Appearance ED: well developed; Negative for unkempt, cachectic, contractures, cyanotic, diaphoretic or pallor Nutritional Appearance: Negative for cachectic or obese HEENT Reports moist mucous membranes Negative for trauma or tenderness Eyes PERRL and EOMs intact bilaterally General Eye ED: Negative for pale conjunctiva or scleral icterus Neck no lymphadenopathy, supple and no JVD General: Negative for tenderness Lymph Lymphatic: Negative for other Chest Wall inspection of chest normal and palpation of chest normal Resp normal respiratory effort and clear to auscultation bilaterally Effort and Inspection: Negative for retractions Auscultation: Negative for rales, rhonchi or wheezes Cardio regular rate, regular rhythm, S1 normal heart sound, S2 normal heart sound and no murmurs Palpation: Negative for palpable S3 Rate: Negative for bradycardia or tachycardic Rhythm: Negative for abnormal rhythm GI normal to inspection, nondistended, normoactive bowel sounds, non-tender, non-distended and no masses Inspection: Negative for abdominal distention Auscultation: normoactive bowel sounds Palpation: soft; Negative for tender, guarding, mass or rebound tenderness present Back/Spine no CVA tenderness General Back: Negative for CVA tenderness Cervical Spine: Negative for cervical spine tenderness Thoracic Spine / Upper Back: Negative for thoracic spinal tenderness or paraspinal muscle tenderness Lumbar Spine / Lower Back: Negative for lumbar spinal tenderness Extremity normal to inspection General Extremety ED: Negative for tenderness or other findings General Extremity: Negative for other findings Neuro oriented x3 and CN's II-XII intact bilaterally Sensorium / Orientation: alert; Negative for orientation impaired, lethargic or stuporous Motor Exam: strength 5/5 throughout Psych mental status grossly normal Appearance: Negative for unkempt Attitude: No agitated Mood & Affect: Negative for depressed, anxious or tearful Skin no rashes or lesions noted, no wounds and skin turgor normal General Skin Exam: elasticity normal; Negative for jaundice or pallor Lesions: No lesion noted Rashes: No rashes noted Trauma: Negative for abrasion Wounds: Negative for wounds noted MDM MDM MDM Narrative Medical decision making narrative: 64-year-old male benign exam with normal vital signs a pulse ox. Complain generalized weakness. Afebrile. No URI symptoms. No urinary symptoms. Screening labs are basically unremarkable. Chest x-ray and lipase are pending. States he is feeling much better now than he did a few hours ago. The symptoms come and go and have been for weeks. Repeat exam patient is doing well at 5:04 PM. I do not have a specific cause for his weakness. Clinically states he is improving. His repeat exam is benign and unchanged his initial exam was unremarkable. His EKG, chest x-ray and labs are unremarkable be discharged home with outpatient follow-up. Patient is comfortable with that plan. History & Record Review Discussion w/independent historian: Patient Additional record(s) reviewed:: Prior inpatient record, Prior outpatient record, Prior ED visit and Prior labs Lab Data Attestation: I reviewed the patient's lab results. Lab results narrative: CBC shows a white count of 10 H&H is 16 and 47. Platelets 219. Electrolytes show a gap of 16. BUN and creatinine 21 and 1.3. Glucose 116. Chest x-ray showed no acute abnormality. Labs: Laboratory Results - last 24 hr 12/22/24 13:15 WBC 10.5 RBC 5.40 Hgb 16.2 Hct 47.1 MCV 87.2 MCH 30.0 MCHC 34.4 RDW Std Deviation 40.1 RDW Coeff of Ghanshyam 12.6 Plt Count 219 MPV 11.4 Immature Gran % (Auto) 0.400 Neut % (Auto) 77.8 H Lymph % (Auto) 15.0 L Mccracken % (Auto) 5.9 Eos % (Auto) 0.3 Baso % (Auto) 0.6 Absolute Neuts (auto) 8.2 H Absolute Lymphs (auto) 1.58 Nucleated RBC % 0 Sodium 137 Potassium 4.1 Chloride Direct 100 Carbon Dioxide 20.4 L Anion Gap 16 H BUN 21 H Creatinine 1.3 Est GFR (MDRD) Non-Af 61 BUN/Creatinine Ratio 16.3 Glucose 116 H Calcium 9.7 Radiography Chest X-Ray - ED: 2 View, Read by ED Physician, Read by Radiologist, Normal, Heart, Lungs, Mediastinum, Bony Structures, No Acute Disease and Chronic Changes Diagnostic Testing: Clinical Impression(s) from Imaging Studies Chest X-Ray 12/22/24 15:17 IMPRESSION: Hyperinflation. The lungs are clear. Stable examination. Reading Location: [facility] Chest x-ray, 2 views, AP and lateral, interpreted by myself and radiologist shows no acute abnormality. Normal cardiac silhouette. Normal lung rojas. Normal cardiac silhouette and mediastinum. Rhythm Strip Rhythm Strip: Sinus Rhythm Rate: 91 Ectopy: None EKG Initial EKG: Attestation: I personally reviewed and interpreted this EKG as follows: Interpretation: No Acute Injury Pattern Comments: Normal sinus rhythm rate of 91 no acute signs of VA or ischemia. No dysrhythmia. Discharge Plan Triage Chief Complaint: Weakness ED Provider: Jc Raza Dx/Rx/DC Orders Clinical Impression: Weakness, Hx of pancreatitis, History of hypertension Instructions: ED Weakness (Uncertain Cause) Prescriptions: No Action cholecalciferol (vitamin D3) [Vitamin D3] 50 mcg (2,000 unit) Capsule 50 mcg PO DAILY lisinopril 20 mg tablet 30 mg PO DAILY hydroxyzine HCl 25 mg tablet 25 mg PO TID PRN (Reason: anxiety) 7 Days Qty: 21 0RF Creon 36,000-114,000- 180,000 unit capsule,delayed release(DR/EC) 2 cap PO TIDCM 90 Days Qty: 540 5RF Primary Care Provider: Bobby Fountain Referrals: Bobby Fountain, [Primary Care Provider] - 1 Week if not improving Activity Restrictions/Additional Instructions: Your labs, EKG and chest x-ray along with your physical exam are unremarkable today. Follow-up with your primary care physician. Print Language: Paraguayan Disposition Disposition: Home, Self Care
[2024-12-22 16:00] VITALS: BP 129/94; PULSE 80; RESP 16; O2SAT 99
[2024-12-22 20:39] LABS: Lipase 61 U/L (13-75)
== END 2024-12-22 17:23 | disposition home or self-care (01) ==
PROVIDERS: Emergency Provider Emergency Medicine; Visit Provider Emergency Medicine
DX: R53.1 Weakness (principal); Z87.891 Personal history of nicotine dependence; I10 Essential (primary) hypertension; E78.00 Pure hypercholesterolemia, unspecified; F41.9 Anxiety disorder, unspecified; Z87.19 Personal history of other diseases of the digestive system
CPT/HCPCS: 71046; 80048; 83690; 85025; 93005; 94760; 99282; A4216

== ENCOUNTER 2025-02-22 13:01 | Emergency (ER) | payer MEDICAID, SELFPAY ==
[2025-02-22 13:05] VITALS: BP 143/95; PULSE 125; RESP 18; TEMP 37; O2SAT 98; BMI 23.6
[2025-02-22 14:06] VITALS: RESP 94; O2SAT 96
--- NOTE | 2025-02-22 14:06 | EKG12_ITS ---
Test Reason : SOB Blood Pressure : */* mmHG Vent. Rate : 76 BPM Atrial Rate : 76 BPM P-R Int : 140 ms QRS Dur : 96 ms QT Int : 422 ms P-R-T Axes : 63 11 49 degrees QTcB Int : 474 ms Normal sinus rhythm Normal ECG Confirmed by JANAE VILLAVICENCIO, PHU ([id number]), book or script editor BIRGIT GILLIAM ([id number]) on 02/23/2025 1:32:34 PM Referred By: TL/MARCIO Confirmed By: PHU CARDOSO MD
--- NOTE | 2025-02-22 15:31 | EDS_ITS ---
HPI History of Present Illness Chief Complaint: General Illness Informant: patient Onset/Context/Timing Onset: Today Context: Gradual Onset Timing: Waxes and wanes Quality: Strange, shaky Location: Generalized Worsened by: Nothing Relieved by: Nothing Narrative Narrative: Patient presents with lightheadedness that began today. Patient states that he checked his pulse oximeter at home and noted it was in the 80s. Patient states he checked his blood pressure at home and it was 148/110. Patient states he has a strange feeling in his chest and upper abdomen. Patient states he feels shaky. Patient states nothing makes his symptoms better and nothing makes them worse. Patient states he does get short of breath at times. Currently, patient denies any shortness of breath. Patient denies any chest pain. Patient denies any nausea or vomiting. Patient does admit to some mild intermittent back pain that comes and goes. [facility] Medical History Wears glasses High cholesterol Non-smoker Hypertension History of echocardiogram Anxiety Hx of pancreatitis Pancreatitis Home Medications ?Medication ?Instructions ?Recorded ?Last Taken ?Type cholecalciferol (vitamin D3) 50 50 mcg PO DAILY 02/22/25 History mcg (2,000 unit) capsule (Vitamin D3) [id number] 2 cap PO TIDCM 90 days #540 caps 07/23/24 02/21/25 Rx 36,000-114,000-180,000 unit capsule,delay rel (Creon) ascorbic acid (vitamin C) 500 mg 500 mg PO DAILY 02/2202/22/25 History tablet (C-500) hydroxyzine HCl 10 mg tablet 10 - 20 mg PO TID PRN anx iety 02/22/25 02/18/25 History lisinopril 30 mg tablet 30 mg PO DAILY 02/22/2501/26 History Allergy/AdvReac Type Severity Reaction Status Date / Time amoxicillin (From Augmentin) Allergy Swelling Verified 02/22/25 13:05 clavulanic acid (From Allergy Swelling Verified 02/22/25 13:05 Augmentin) Penicillins Allergy PT UNSURE Verified 02/22/25 13:05 OF REACTION hydromorphone (From Dilaudid) AdvReac Other Verified 02/22/25 13:05 Family History Father Myocardial infarction Surgical History History of ERCP Hx of cholecystectomy S/P appendectomy Social History household members: none Smoking Status: Former smoker ROS ROS ED Constitutional Constitutional ED: Denies chills or fever(s) Eyes Eyes: Denies blurry vision or change in vision ENT ENT ED: Denies rhinorrhea or sore throat Cardiovascular Cardiovascular: Denies chest pain or palpitations Respiratory/Chest Respiratory/Chest: Denies cough or dyspnea Gastrointestinal Gastrointestinal: Denies nausea or vomiting Genitourinary Genitourinary ED: Denies dysuria or hematuria Musculoskeletal Musculoskeletal: Reports back pain; Denies neck pain Integumentary Denies abscess or rash Neurologic Neurologic: Denies headache(s) or weakness Allergic/Immunologic Allergic/Immunologic ED: Denies mouth swelling or urticaria EXAM Physical Exam Const Vital Signs: 02/22/25 13:05 02/22/25 14:06 02/22/25 14:06 Temperature 98.6 F Temperature Source Oral Pulse Rate 125 H Respiratory Rate 18 94 H Respiratory Effort Respiratory Pattern Blood Pressure 143/95 H Blood Pressure Mean 111 Pulse Ox 98 96 Oxygen Delivery Method Room Air Room Air Room Air 02/22/25 14:06 02/22/25 17:05 02/22/25 18:00 Temperature Temperature Source Pulse Rate 67 75 Respiratory Rate 15 18 Respiratory Effort Normal Non-Labored Respiratory Pattern Normal Blood Pressure 137/92 H 136/100 H Blood Pressure Mean 107 112 Pulse Ox 99 98 Oxygen Delivery Method Room Air Room Air Positive well nourished and well developed General Appearance ED: well developed and NAD HEENT Reports moist mucous membranes Neck supple and no JVD Resp normal respiratory effort and clear to auscultation bilaterally Cardio regular rate and regular rhythm GI non-tender and non-distended Palpation: soft Extremity normal to inspection General Extremety ED: Negative for edema or tenderness General Extremity: Negative for edema Neuro oriented x3, CN's II-XII intact bilaterally and no sensory deficits noted Sensorium / Orientation: alert Motor Exam: strength 5/5 throughout Psych mental status grossly normal MDM MDM MDM Narrative Medical decision making narrative: Differential diagnosis includes gastritis, pancreatitis, electrolyte abnormality, gastroesophageal reflux disease, cardiac dysrhythmia, cardiac ischemia, and anxiety. EKG will be obtained to assess for cardiac dysrhythmia and cardiac ischemia. CBC will be obtained to assess for leukocytosis and anemia. Basic metabolic profile will be obtained to assess for electrolyte abnormality and renal function. Hepatic profile will be obtained to assess for hepatic function. Lipase will be obtained to assess for pancreatitis. Lipase and high-sensitivity troponin series will be obtained to assess for cardiac ischemia. Lab Data Attestation: I reviewed the patient's lab results. Lab results narrative: CBC was reviewed and was within normal limits. Basic metabolic profile was reviewed. Creatinine was slightly elevated at 1.4. This is consistent with previous results. Hepatic profile was reviewed and showed a mildly elevated direct bilirubin of 0.35. The remainder is within normal limits. Lipase was reviewed and was normal at 52. Labs: Laboratory Results - last 24 hr 02/22/25 16:00 WBC 10.3 RBC 5.12 Hgb 15.4 Hct 44.5 MCV 86.9 MCH 30.1 MCHC 34.6 RDW Std Deviation 38.5 RDW Coeff of Ghanshyam 12.0 Plt Count 198 MPV 10.3 Immature Gran % (Auto) 0.300 Neut % (Auto) 83.5 H Lymph % (Auto) 11.1 L Blaine % (Auto) 4.6 Eos % (Auto) 0.2 Baso % (Auto) 0.3 Absolute Neuts (auto) 8.6 H Absolute Lymphs (auto) 1.15 Nucleated RBC % 0 Sodium 139 Potassium 4.2 Chloride 102 Carbon Dioxide 24.3 Anion Gap 13 BUN 22 H Creatinine 1.40 H Estim Creat Clear Calc 56.77 Est GFR (MDRD) Non-Af 56 L BUN/Creatinine Ratio 15.6 Glucose 102 H Calcium 9.7 Total Bilirubin 0.85 Direct Bilirubin 0.35 H AST 25 ALT 25 Alkaline Phosphatase 73 Troponin T High Sens 9 Total Protein 7.9 Albumin 4.8 Globulin 3.1 Lipase 52 EKG Initial EKG: Attestation: I personally reviewed and interpreted this EKG as follows: Interpretation: Sinus Rhythm (76) and No Acute Injury Pattern Comments: EKG was obtained. On my independent interpretation, it showed a normal sinus rhythm with a rate of 76. OR interval, QRS interval, and QTc intervals were all normal. [place] was normal. There are no acute ST or T wave changes. Prior EKG tracings: available for review Prior: Unchanged (12/22/2024) Treatment and Re-Evaluation :: Patient was advised of his findings. Patient is feeling better on reevaluation. Patient has a HEART score of 2. Patient was advised that this is low risk for acute cardiac event. Patient was instructed to follow-up with his primary care physician in 5 to 7 days. Patient was instructed to continue to monitor his blood pressures. Patient was instructed to take his blood pressure readings into his primary care physician for further management of his blood pressure. Patient understood and was agreeable with the plan. All questions were answe red. Discharge Plan Triage Chief Complaint: General Illness ED Provider: Prince Quintanilla Dx/Rx/DC Orders Clinical Impression: Hypertension, Gastritis Instructions: ED Hypertension, Established Prescriptions: No Action cholecalciferol (vitamin D3) [Vitamin D3] 50 mcg (2,000 unit) Capsule 50 mcg PO DAILY hydroxyzine HCl 10 mg tablet 10 - 20 mg PO TID PRN (Reason: anxiety) lisinopril 30 mg tablet 30 mg PO DAILY ascorbic acid (vitamin C) [C-500] 500 mg tablet 500 mg PO DAILY Creon 36,000-114,000- 180,000 unit capsule,delayed release(DR/EC) 2 cap PO TIDCM 90 Days Qty: 540 5RF Primary Care Provider: Bobby Fountain Referrals: oBbby Fountain DO [Primary Care Provider] - 5-7 Days Print Language: Frisian Disposition Disposition: Home, Self Care
[2025-02-22 16:07] LABS: Absolute Lymphocyte Count 1.15 X10^3/uL (0.83-4.51); Absolute Neutrophil Count 8.6 X10^3/uL (2.0-7.7); Basophil# 0.03 X10^3/uL; Basophil% 0.3 % (0-1); Eosinophil# 0.02 X10^3/uL; Eosinophils% 0.2 % (0-5); Hematocrit 44.5 % (40-54); Hemoglobin 15.4 g/dL (13.0-16.5); Lymphocyte # 1.15 X10^3/ul (0.83-4.51); Lymphocyte % 11.1 % (19-41); Mean Corp Hgb Conc 34.6 g/dL (32-36); Mean Corpuscular Hgb 30.1 pg (27.0-32.0); Mean Corpuscular Volume 86.9 fL (80-94); Mean Platelet Vol. 10.3 fl (6.2-12.0); Monocyte# 0.47 X10^3/uL; Monocyte% 4.6 % (0-10); NRBC Flagged by Analyzer 0 % (0-5); Neutrophil # 8.62 X10^3/uL (2.7-7.7); Neutrophil % 83.5 % (47-70); Platelet Count 198 K/mm3 (150-450); RBC Distribution Width SD 38.5 fl (35.1-43.9); Red Blood Count 5.12 M/mm3 (4.6-6.2); White Blood Count 10.3 K/mm3 (4.4-11.0)
[2025-02-22 16:30] LABS: AST(SGOT) 25 U/L (<=37); Alanine Aminotransfer ALT/SGPT 25 U/L (<=46); Albumin, Serum 4.8 g/dL (3.4-4.8); Alkaline Phosphatase 73 U/L (40-129); Anion Gap 13 (5-15); BUN 22 mg/dL (4-19); BUN/Creat Ratio 15.6 RATIO (10-20); Bilirubin, Direct 0.35 mg/dL (0.00-0.30); Calcium,Total 9.7 mg/dL (7.6-11.0); Carbon Dioxide 24.3 mmol/L (21.0-32.0); Chloride 102 mmol/L (98-108); EST Glomerular Filtration Rate 56 (>60); Estimated Creatinine Clearance 56.77 ml/min (50-250); Globulin 3.1 g/dL (2.2-4.2); Glucose 102 mg/dL (70-99); Lipase 52 U/L (13-75); Potassium 4.2 mmol/L (3.3-5.1); Protein, Total 7.9 g/dL (5.9-8.4); Sodium Level 139 mmol/L (133-145); Total Bilirubin 0.85 mg/dL (0.00-1.30)
[2025-02-22 17:05] VITALS: BP 137/92; PULSE 67; RESP 15; O2SAT 99
[2025-02-22 18:00] VITALS: BP 136/100; PULSE 75; RESP 18; O2SAT 98
[2025-02-22 18:09] LABS: Troponin T High Sensitivity 9 ng/L (<=22)
[2025-02-22 19:11] VITALS: BP 136/89; PULSE 75; RESP 18; TEMP 36.7; O2SAT 97
== END 2025-02-22 19:12 | disposition home or self-care (01) ==
PROVIDERS: Emergency Provider Emergency Medicine; Visit Provider Emergency Medicine
DX: I10 Essential (primary) hypertension (principal); K29.70 Gastritis, unspecified, without bleeding; Z87.891 Personal history of nicotine dependence; M54.9 Dorsalgia, unspecified; E78.00 Pure hypercholesterolemia, unspecified; Z79.899 Other long term (current) drug therapy
CPT/HCPCS: 80048; 80076; 83690; 84484; 85025; 93005; 94760; 99283; A4216

== ENCOUNTER 2025-07-30 14:15 | Emergency (ER) | payer MEDICAID, SELFPAY ==
[2025-07-30 14:16] VITALS: BP 137/100; PULSE 67; RESP 15; TEMP 36.6; O2SAT 99
[2025-07-30 14:33] VITALS: BMI 23.6
--- NOTE | 2025-07-30 14:34 | EKG12_ITS ---
Test Reason : SYNCOPE Blood Pressure : */* mmHG Vent. Rate : 59 BPM Atrial Rate : 59 BPM P-R Int : 156 ms QRS Dur : 100 ms QT Int : 456 ms P-R-T Axes : 4 2 50 degrees QTcB Int : 451 ms Sinus bradycardia Incomplete right bundle branch block Borderline ECG Confirmed by PHU CARDOSO MD ([id number]), bed teacher CHRIS LOMAS ([id number]) on 08/01/2025 8:31:54 AM Referred By: SIN Confirmed By: PHU CARDOSO MD
--- NOTE | 2025-07-30 14:34 | RAD_ITS ---
PROCEDURE: CHEST PA AND LATERAL 07/30/2025 REASON FOR EXAM: CHEST PAIN TECHNIQUE: Procedure Code: RADCXR Modality: DX Procedure: CHEST PA AND LATERAL COMPARISON: 12/22/2024 FINDINGS: Lungs/Pleura: Clear. Heart/Mediastinum: Normal in size. Bones/Soft tissues: Unremarkable. RAD/Chest PA and Lateral IMPRESSION: No acute cardiopulmonary disease. Reading Location: [id number]
--- NOTE | 2025-07-30 14:41 | EX.ED.DYSGE1 ---
HPI History of Present Illness Chief Complaint: Syncope Detail of Chief Complaint: Near syncope. No loss of conscious. Informant: patient Onset/Context/Timing Onset: Weeks Context: Gradual Onset Timing: Intermittent Maximum Severity: Mild Narrative Narrative: 64-year-old male history of hypertension anxiety. Chronic pancreatitis. States that he just has these waves of fatigue that come over him. And he feels like he might pass out. Denies any chest pain. It is not necessarily associated with exertion. And has never had any loss of consciousness. Prior similar symptoms: Yes Recent Illness/Hospitalization: No PFSH PFSH Medical History Wears glasses High cholesterol Non-smoker Hypertension History of echocardiogram Anxiety Hx of pancreatitis Pancreatitis Home Medications ?Medication ?Instructions ?Recorded ?Last Taken ?Type cholecalciferol (vitamin D3) 50 50 mcg PO DAILY 01/01/23 07/30/25 History mcg (2,000 unit) capsule (Vitamin D3) [id number] 2 cap PO TIDCM 90 days #540 caps 07/23/24 07/30/25 Rx 36,000-114,000-180,000 unit capsule,delay rel (Creon) ascorbic acid (vitamin C) 500 mg 500 mg PO DAILY 02/22/25 07/30/25 History tablet (C-500) hydroxyzine HCl 10 mg tablet 10 - 20 mg PO TID PRN anxiety 02/22/25 02/18/25 History lisinopril 30 mg tablet 30 mg PO DAILY 02/22/25 07/29/25 History Allergy/AdvReac Type Severity Reaction Status Date / Time amoxicillin (From Augmentin) Allergy Swelling Verified 07/30/25 14:16 clavulanic acid (From Allergy Swelling Verified 07/30/25 14:16 Augmentin) Penicillins Allergy PT UNSURE Verified 07/30/25 14:16 OF REACTION hydromorphone (From Dilaudid) AdvReac Other Verified 07/30/25 14:16 Family History Father Myocardial infarction Surgical History History of ERCP Hx of cholecystectomy S/P appendectomy Social History household members: none Smoking Status: Former smoker ROS ROS ED ROS Narrative Denies recent illness. Constitutional Constitutional ED: Denies chills or fever(s) Eyes Eyes: Denies blurry vision ENT ENT ED: Denies ear pain Cardiovascular Cardiovascular: Denies chest pain Respiratory/Chest Respiratory/Chest: Denies cough or dyspnea Gastrointestinal Gastrointestinal: Denies abdominal pain Genitourinary Genitourinary ED: Denies dysuria or hematuria Musculoskeletal Musculoskeletal: Denies arthralgias or back pain Integumentary Denies abscess or Abrasions Neurologic Neurologic: Denies headache(s) Psychiatric Psychiatric: Denies anxiety or depression Endocrine Endocrinology: Denies cold intolerance Hematologic/Lymphatic Hematologic/Lymphatic: Reports none Allergic/Immunologic Allergic/Immunologic ED: Denies mouth swelling, tongue swelling or urticaria EXAM Physical Exam Narrative Exam Narrative: Well-appearing 64-year-old male. Vital signs are stable and afebrile. Pulse ox 9 9% on room air no hypoxia. He is in no distress. Does appear mildly anxious. H EENT exam pupils round react to light. No facial droop. No trauma. Moist use membranes. Neck nontender JVD. No lymphadenopathy. Lungs clear to auscultation bilaterally. Heart regular rhythm no murmur. Chest wall ribs nontender. Abdomen soft nontender. Moving all 4 extremities. Calves nontender no edema no cords. 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 Dorsi plantarflexion intact. Back nontender. Neurologically is awake and alert. Answering questions following commands. No focal motor deficits. Benign exam. Const Vital Signs: 07/30/25 14:16 07/30/25 14:31 07/30/25 14:35 Temperature 98 F Temperature Source Temporal Pulse Rate 67 Respiratory Rate 15 Respiratory Effort Normal Non-Labored Blood Pressure 137/100 H Blood Pressure Mean 112 Pulse Ox 99 Oxygen Delivery Method Room Air Room Air Positive well nourished and well developed; Negative for cachectic, contractures or unkempt General Appearance ED: well developed and NAD; Negative for unkempt, cachectic, contractures or pallor Nutritional Appearance: Negative for cachectic HEENT Reports moist mucous membranes Eyes PERRL and EOMs intact bilaterally Neck no lymphadenopathy, supple and no JVD Chest Wall inspection of chest normal and palpation of chest normal Resp normal respiratory effort and clear to auscultation bilaterally Cardio regular rate, regular rhythm, S1 normal heart sound, S2 normal heart sound and no murmurs GI normal to inspection, nondistended, normoactive bowel sounds, non-tender, non-distended and no masses Auscultation: normoactive bowel sounds Palpation: soft; Negative for tender, guarding or rebound tenderness present Back/Spine no CVA tenderness General Back: Negative for CVA tenderness Cervical Spine: Negative for cervical spine tenderness Thoracic Spine / Upper Back: Negative for thoracic spinal tenderness or paraspinal muscle tenderness Lumbar Spine / Lower Back: Negative for lumbar spinal tenderness Extremity normal to inspection General Extremety ED: Negative for edema or tenderness General Extremity: Negative for edema Neuro oriented x3 and CN's II-XII intact bilaterally Sensorium / Orientation: alert; Negative for orientation impaired, lethargic or stuporous Motor Exam: strength 5/5 throughout Psych mental status grossly normal Appearance: Negative for unkempt Attitude: No agitated Mood & Affect: anxious; Negative for depressed or tearful Skin no rashes or lesions noted, no wounds and skin turgor normal General Skin Exam: elasticity normal; Negative for jaundice or pallor Lesions: No lesion noted Rashes: No rashes noted Trauma: Negative for abrasion Wounds: Negative for wounds noted MDM MDM MDM Narrative Medical decision making narrative: 64-year-old male with episodes of near syncope benign exam. Undergo cardiac workup. Repeat exam at 3:54 PM patient doing well. Vital signs are stable. He and I discussed all his test results he is comfortable being discharged to home. History & Record Review Discussion w/independent historian: Patient Additional record(s) reviewed:: Prior inpatient record, Prior outpatient record, Prior ED visit and Prior labs Lab Data Attestation: I reviewed the patient's lab results. Lab results narrative: CBC normal. White count 8. H&H 15 and 44. Platelets 219. Electrolytes show gap 15. Bun and creatinine of 26 and 1.26. Glucose 107. Troponin 9. He is not having any chest pain I do not think he needs a second troponin. Labs are consistent with prior. Labs: Laboratory Results - last 24 hr 07/30/25 14:25 WBC 8.9 RBC 5.20 Hgb 15.7 Hct 44.5 MCV 85.6 MCH 30.2 MCHC 35.3 RDW Std Deviation 38.9 RDW Coeff of Ghanshyam 12.4 Plt Count 219 MPV 10.2 Immature Gran % (Auto) 0.200 Neut % (Auto) 66.6 Lymph % (Auto) 23.4 [place] % (Auto) 7.8 Eos % (Auto) 1.5 Baso % (Auto) 0.5 Absolute Neuts (auto) 5.9 Absolute Lymphs (auto) 2.08 Nucleated RBC % 0 Sodium 135 Potassium 3.9 Chloride 100 Carbon Dioxide 20.6 L Anion Gap 15 BUN 26 H Creatinine 1.26 H Estim Creat Clear Calc 63.08 Est GFR (MDRD) Non-Af 64 BUN/Creatinine Ratio 20.8 H Glucose 107 H Calcium 9.5 Troponin T High Sens 9 Radiography Chest X-Ray - ED: 2 View, Read by ED Physician, Normal, Heart, Lungs, Mediastinum, Bony Structures, No Acute Disease and Chronic Changes Diagnostic Testing: Chest x-ray, 2 views, AP and lateral, interpreted by myself shows normal cardiac silhouette. Normal mediastinum. Normal lung rojas. Chronic changes Rhythm Strip Rhythm Strip: Sinus bradycardia Rate: 59 Ectopy: None EKG Initial EKG: Attestation: I personally reviewed and interpreted this EKG as follows: Interpretation: Sinus Bradycardia Comments: Sinus bradycardia rate of 59 incomplete right bundle branch block no acute signs of OH or ischemia. Discharge Plan Triage Chief Complaint: Syncope ED Provider: Jc Raza Dx/Rx/DC Orders Clinical Impression: Near syncope, History of hypertension, History of pancreatitis Instructions: ED Near-Fainting, Uncertain Cause Prescriptions: No Action cholecalciferol (vitamin D3) [Vitamin D3] 50 mcg (2,000 unit) Capsule 50 mcg PO DAILY hydroxyzine HCl 10 mg tablet 10 - 20 mg PO TID PRN (Reason: anxiety) lisinopril 30 mg tablet 30 mg PO DAILY Patient Comments: Takes half 15 mg in afternoon and 15 mg at HS. ascorbic acid (vitamin C) [C-500] 500 mg tablet 500 mg PO DAILY Creon 36,000-114,000- 180,000 unit capsule,delayed release(DR/EC) 2 cap PO TIDCM 90 Days Qty: 540 5RF Primary Care Provider: Bobby Fountain Referrals: Bobby Fountain DO [Primary Care Provider, Medical] - As Needed Activity Restrictions/Additional Instructions: Your lab work today, EKG and chest x-ray all look good. Follow-up with your primary care physician needed No specific cause for your symptoms. Print Language: [place] Disposition Disposition: Home, Self Care
[2025-07-30 14:43] LABS: Hematocrit 44.5 % (40-54); Hemoglobin 15.7 g/dL (13.0-16.5); Immature Granulocytes Count 0.020 X10^3/uL (0.0-0.0); Mean Corp Hgb Conc 35.3 g/dL (32-36); Mean Corpuscular Volume 85.6 fL (80-94); Mean Platelet Vol. 10.2 fl (6.2-12.0); NRBC Flagged by Analyzer 0 % (0-5); Platelet Count 219 K/mm3 (150-450); RBC Distribution Width CV 12.4 % (11.6-14.6); RBC Distribution Width SD 38.9 fl (35.1-43.9); Red Blood Count 5.20 M/mm3 (4.6-6.2); White Blood Count 8.9 K/mm3 (4.4-11.0)
--- OUTSIDE RECORDS SUMMARY | 2025-07-30 14:48 | XMS RPT_ITS | CCD ---
Author Organization [facility] CliniSyri Care Team Providers Care Rand Tacker Name Role Phone Rosibel Alberto Primary Care Provider [phone] ROSIBEL ALBERTO MD Primary Care Physician [phone] Pending Provider Unavailable Unavailable Unavailable Unavailable Dr. Rosibel Alberto Primary Care Provider Dr. Cathleen Villegas Emergency Provider [phone] Dr. Patrick Alva Admit Provider Dr. Lucio Lane Other Provider [phone] Matteo Mcdaniel Attending Provider Dr. Matteo Mcdaniel Other Provider Dr. El Farmer Attending Provider Dr. Lucio Lane Attending Provider Dr. Matteo Mcdaniel Referring Provider [phone] Rosibel Alberto Referring Provider [phone] Dr. Rosibel Alberto Primary Care Provider Dr. Rosibel Alberto Referring Provider [phone] Dr. Lucio Lane Attending Provider BOBBY FOUNTAIN DO Primary Care Physician Dr. Rosibel Alberto Referring Provider [phone] Snehal ANNA, QUALITY ASSURANCE SUPERVISOR CHASSIS-Nils Payton Attending Provider [phone] Dr. Bobby Fountain Primary Care Provider [phone] Dr. Bobby Fountain Primary Care Provider [phone] Dr. Bobby Fountain Referring Provider [phone] FriendDr[address] Pradhan Attending Provider [phone] Other Provider [phone] Snehal QUALITY ASSURANCE SUPERVISOR CHASSIS, QUALITY ASSURANCE SUPERVISOR CHASSIS-C Becky Payton Attending Provider [phone] Dr. Bobby Fountain Primary Care Provider [phone] Dr. Bobby Fountain Referring Provider [phone] [place], Dr. Pradhan Attending Provider [phone] CHUCHO VILLAVICENCIO, RICHARD Fuentes Attending Unavailable FOUNTAIN DO, BOBBY E Primary Care Unavailable FOUNTAIN DO, BOBBY E Attending Unavailable FOUNTAIN DO, BOBBY E Primary Care Unavailable FOUNTAIN DO, BOBBY E Primary Care Unavailable FOUNTAIN DO, BOBBY E Attending Unavailable FOUNTAIN DO, BOBBY E Attending Unavailable FOUNTAIN DO, BOBBY E Primary Care Unavailable FOUNTAIN DO, BOBBY E Attending Unavailable FOUNTAIN DO, BOBBY E Primary Care Unavailable FOUNTAIN DO, BOBBY E Attending Unavailable FOUNTAIN DO, BOBBY E Primary Care Unavailable FOUNTAIN DO, BOBBY E Attending Unavailable FOUNTAIN DO, BOBBY E Primary Care Unavailable Rosibel Alberto Primary Care Provider [phone] Bobby Fountain DO Primary Care Provider ROSIBEL ALBERTO Primary Care Unavailab BOBBY Adams Primary Care Unavailable Dr. Bobby Fountain DO Primary Care Provider [phone] Dr. Prince Quintanilla DO Attending Provider Dr. Prince Quintanilla DO Emergency Provider Dr. Jc Raza MD Attending Provider Dr. Jc Raza MD Emergency Provider Dr. Bobby Fountain DO Referring Provider Dr. Lucio Lane DO Attending Provider FOUNTAIN DO, BOBBY E Attending Unavailable FOUNTAIN DO, BOBBY E Primary Care Unavailable FOUNTAIN DO, BOBBY E Primary Care Unavailable FOUNTAIN DO, BOBBY E Attending Unavailable FOUNTAIN DO, BOBBY E Primary Care Unavailable FOUNTAIN DO, BOBBY E Attending Unavailable FOUNTAIN DO, BOBBY E Primary Care Unavailable FOUNTAIN DO, BOBBY E Attending Unavailable Prince Quintanilla Attending Unavailable Bobby Fountain Primary Care Unavailable Jc Raza Attending Unavailable Bobby Fountain Primary Care Unavailable Schwiger, Prince Attending Unavailable Bobby Fountain Primary Care Unavailable Friend, Lucio Attending Unavailable Friend, Lucio Referring Unavailable Bobby Fountain Primary Care Unavailable Friend, Lucio Attending Unavailable Bobby Fountain Primary Care Unavailable Bobby Fountain Referring Unavailable Friend, Lucio Attending Unavailable Bobby Fountain Primary Care Unavailable Bobby Fountain Referring Unavailable Friend, Lucio Attending Unavailable Bobby Fountain Referring Unavailable Bobby Fountain Primary Care Unavailable Dr. Bobby Fountain DO Primary Care Physician Dr. Bobby Fountain DO Referring Provider [phone] Lucio CHAPMAN Attending Physician Allergies Allergy Classification Reported Allergen(s) Allergy Type Date of Onset Reaction(s) Facility (17 sources) HYDROmorphone Drug Allergy 9 Other [place], [place] (7 sources) Amoxicillin-Pot Clavulanate; Translations: [AMOXICILLIN-POT CLAVULANATE] Propensity to adverse reactions to drug 9 Shortness Of Breath, Anaphylaxis [place], [place] (20 sources) Amoxicillin / Clavulanate; Translations: [amoxicillin-clav ulanate] Drug Allergy 9 Chest pain (finding), Difficulty breathing (finding), Dyspnea (finding) [facility] (20 sources) Ivermectin; Translations: [ivermectin] Drug Allergy 5 [facility] (20 sources) meloxicam; Translations: [meloxicam] Drug Allergy 5 [facility] (18 sources) Amoxicillin; Translations: [amoxicillin] Drug Allergy 2 Swelling [facility] (13 sources) Clavulanate Drug Allergy 2 Swelling [facility] (14 sources) Penicillins; Translations: [Penicillins] Allergy to substance 2 PT UNSURE OF REACTION [facility] (1 source) Amoxicillin Drug Allergy 5 [facility] (1 source) Clavulanate Drug Allergy 5 [facility] (1 source) HYDROmorphone Drug Allergy 5 [facility] Medications Current Medications Medication Drug Class(es) Dates Sig (Normalized) Sig (Original) acetaminophen 325 mg oral tablet (3 sources) Start: 03-31-2020 650 mg, Oral, EVERY 4 HOURS PRN, Pain Mild (1-3), Pain Mild (1-3) or Fever greater than 100.5 F (38 C), Starting 03/31/20 at 0124 Maximum dose of acetaminophen is 4000 mg from all sources in 24 hours. Start: 09-14-2019 End: 09-14-2019 acetaminophen (TYLENOL) tabl et 1,000 mg Start: 07-10-2019 acetaminophen (TYLENOL) tablet 650 mg acetaminophen 325 mg / oxyCODONE hydrochloride 5 mg oral tablet (1 source) Opioid Agonist Start: 07-12-2019 oxyCODONE-acetaminophen (PERCOCET) 5-325 MG per tablet 1 tablet ALPRAZolam 0.25 mg disintegrating oral tablet (1 source) Benzodiazepine Start: 09-14-2019 ALPRAZolam (NIRAVAM) dissolvable tablet 0.25 mg amLODIPine 2.5 mg oral tablet (1 source) Dihydropyridine Calcium Channel Thanh Start: 11-07-2023 amLODIPine 2.5 mg oral tablet Dose : 2.5 mg = 1 tab(s), Oral, qDay, # 90 tab(s), 1 Refill(s), Pharmacy: [id number], Essential hypertension, 183, cm, 11/07/23 9:24:00 EST, Height, kg, 11/07/23 9:24:00 EST, Dosing Weight Start Date: 11/07/23 Status: Ordered amylase 800095 unt / lipase 04505 unt / protease 329052 unt delayed release oral capsule (20 sources) Start: 07-23-2024 take 35386-13049 0 capsules by mouth three times daily at mealtime Movpky-Lwqhistp-Kiuwoaq (Creon) 36,000-114,000- 180,000 unit capsule,delayed release(DR/EC) Active 2 NMA PO 3 TIMES DAILY WITH MEALS 540 90 5 July 23, 2024 12:09pm Complies with drug therapy Start: 03-08-2024 pancrelipase 1 2,000 units-38,000 units-60,000 units oral delayed release capsule 3 caps(s), Oral, QIDM, # 720 EA, 0 Refill(s), Pharmacy: [id number], 181.4, cm, 03/08/24 9:09:00 EDT, Height, kg, 03/08/24 9:09:00 EDT, Dosing Weight Start Date: 03/08/24 Status: Ordered Quantity: 720.0 Unit: EA Repeat number: 1 Start: 06-09-2023 pancrelipase 1 2,000 units-38,000 units-60,000 units oral delayed release capsule 3 caps(s), Oral, QIDM, # 720 EA, 0 Refill(s), Pharmacy: [id number], 180, cm, 06/09/23 10:02:00 EDT, Height, kg, 06/09/23 10:02:00 EDT, Dosing Weight Start Date: 06/09/23 Status: Ordered Start: 04-08-2023 End: 07-23-2024 Dznjlc-Vuebhwzc-Lazzpjg (Cre on) 36,000-114,000- 180,000 unit capsule,delayed release(DR/EC) Discontinued 0 PO .COMPLEX 360 5 June 11, 2023 9:43am July 23, 2024 12:10pm take 1-2 capsules with snacks, take 2-3 capsules with meals Start: 12-17-2021 End: 04-08-2023 take 55851-09116 capsules by mouth three times daily at mealtime Huicye-Oigepzry-Linatqt (Creon) 12,000-38,000 -60,000 unit capsule,delayed release(DR/EC) Discontinued 3 NMA PO 3 TIMES DAILY WITH MEALS December 17, 2021 1:00am April 08, 2023 2:16pm Start: 12-03-2021 pancrelipase 1 2,000 units-38,000 units-60,000 units oral delayed release capsule 3 caps(s), Oral, QIDM, 0 Refill(s) Start Date: 12/03/21 Status: Ordered Start: 08-15-2020 take 6 capsules by m outh four times daily Creon 73265-86065 UNIT Oral Capsule Delayed Release Particles TAKE 6 CAPSULES BY MOUTH FOUR TIMES DAILY Quantity: 720 Refills: 0 Ordered: 24-Aug-2020 DO Start : 15-Aug-2020 Active Start: 04-01-2020 Creon 44096-77 4000 UNIT Oral Capsule Delayed Release Particles TAKE 2 CAPSULES WITH MEALS and TAKE 1 CAPSULE WITH snacks Quantity: 180 Refills: 0 Ordered: 12-May-2020 DO Start : 01-Apr-2020 Active amylases 186596 unt / endopeptidases 700459 unt / lipase 15622 unt delayed release oral capsule (2 sources) Start: 04-01-2020 lipase-proteas e-amylase (CREON) delayed release capsule 36,000 Units Start: 04-01-2020 lipase-proteas e-amylase (CREON) 19641 units CPEP delayed release capsule Take 2 capsules (82372 units) with meals and 1 capsule (67102 units) with snacks. 180 capsule 1 04/01/2020 Active ascorbic acid 500 mg oral tablet (2 sources) Vitamin C Start: 02-22-2025 take 1 tablet by mouth once daily Ascorbic Acid (Vitamin C) (C-500) 500 mg tablet Active 500 mg PO DAILY February 22, 2025 12:00am Complies with drug therapy atorvastatin 10 mg oral tablet (9 sources) HMG-CoA Reductase Inhibitor Start: 12-07-2021 atorvastatin 10 mg oral tablet Dose : 10 mg = 1 tab(s), Oral, qDay, # 30 tab(s), 0 Refill(s) Start Date: 12/07/21 Status: Ordered Start: 06-07-2021 atorvastatin 1 0 mg oral tablet Dose : 10 mg = 1 tab(s), Oral, qDay, # 30 tab(s), 4 Refill(s), Pharmacy: [facility], 180.3, cm, 06/01/21 14:15:00 EDT, Height, kg, 06/01/21 14:15:00 EDT, Dosing Weight Start Date: 06/07/21 Status: Ordered cefTRIAXone 2000 mg injection (1 source) Cephalosporin Antibacterial Start: 07-14-2019 End: 07-28-2019 take 2 g intravenous route every twenty-four hours cefTRIAXone sodium 2 g SOLR Infuse 2 g intravenously every 24 hours for 14 days 10 each 0 07/14/2019 07/28/2019 Active cefTRIAXone (ROCEPHIN) 2 g IVPB in D5W 50ml minibag (1 source) Start: 07-13-2019 cefTRIAXone (ROCEPHIN) 2 g IVPB in D5W 50ml minibag Cholecalciferol (10 sources) Vitamin D Start: 02-10-2023 Vitamin D (3) 45 units oral capsule 0 Refill(s) Start Date: 02/10/23 Status: Ordered Start: 01-01-2023 take 1 capsule by [facility] once daily Cholecalciferol (Vitamin D3) (Vitamin D3) 50 mcg (2,000 unit) Capsule Active 50 ug PO DAILY January 01, 2023 1:00am Complies with drug therapy 1 ml diphenhydrAMINE hydrochloride 50 mg/ml cartridge (1 source) Histamine-1 Receptor Antagonist Start: 09-14-2019 End: 09-14-2019 diphenhydrAMINE (BENADRYL) injection 12.5 mg doxycycline hyclate 100 mg oral tablet (2 sources) Tetracycline-clas s Drug Start: 02-07-2025 End: 02-17-2025 take 1 tablet by mouth twice daily doxycycline (VIBRA-TABS) 100 mg tablet Indications: Blepharitis of upper and lower eyelids of both eyes, unspecified type Take 1 tablet by mouth two times a day for 10 days. 20 tablet 02/07/2025 02/17/2025 Active Start: 11-05-2022 take 100 mg by mouth twice daily Doxycycline Hyclate Active 100 MG PO TWICE A DAY November 05, 2022 12:00am 0.4 ml enoxaparin sodium 100 mg/ml prefilled syringe (2 sources) Low Molecular Weight Heparin Start: 03-31-2020 inject 40 mg by subcutaneous injection once daily 40 mg, Subcutaneous, DAILY, First dose on Fri03/31/20 at 0900 Start: 07-10-2019 inject 40 mg by subc utaneous injection once daily 40 mg, Subcutaneous, DAILY, First dose on Fri07/10/19 at 1545 2 ml fentaNYL 0.05 mg/ml injection (2 sources) Opioid Agonist Start: 09-14-2019 fentaNYL (SUBL IMAZE) injection 50 mcg Start: 09-14-2019 fentaNYL (SUBL IMAZE) injection 25 mcg fluticasone propionate 0.05 mg/actuat metered dose nasal spray (2 sources) Corticosteroid Start: 01-10-2023 take 1 spray(s) nasal route twice daily Fluticasone Propionate (Flonase Allergy Relief) 50 mcg/actuation [place],Suspension Active 1 SPRAY INTRANASAL TWICE A DAY November 05, 2022 12:00am administer into each nostril Start: 07-12-2019 fluticasone (F LONASE) 50 MCG/ACT nasal spray 2 spray 12 hr guaiFENesin 600 mg extended release oral tablet (1 source) Start: 11-05-2022 take 1 tablet by mouth twice daily Guaifenesin (Mucus Relief Er) 600 mg Tablet Extended Release Active 600 MG PO TWICE A DAY November 05, 2022 12:00am 1 ml heparin sodium, porcine 100 unt/ml injection (3 sources) Unfractionated Heparin, Anti-coagulant Start: 07-13-2019 heparin flush 100 UNIT/ML injection 250 Units 1 ml hydrALAZINE hydrochloride 20 mg/ml injection (1 source) Arteriolar Vasodilator Start: 09-14-2019 hydrALAZINE (APRESOLINE) injection 5 mg hydrOXYzine hydrochloride 10 mg oral tablet (7 sources) Antihistamine Start: 12-31-2024 take 10-20 mg by mouth three times daily as needed for anxiety Hydroxyzine Hcl 10 mg tablet Active 10 - 20 mg PO THREE TIMES A DAY as needed for anxiety February 22, 2025 12:00am Complies with drug therapy Start: 07-15-2024 End: 02-22-2025 take 1 tablet by mouth three times daily as needed for anxiety Hydroxyzine Hcl 25 mg tablet Discontinued 25 mg PO THREE TIMES A DAY as needed for anxiety 21 7 0 July 15, 2024 3:23pm February 22, 2025 5:15pm 4 ml labetalol hydrochloride 5 mg/ml cartridge (1 source) beta-Adrenergic Thanh Start: 09-14-2019 labetalol (NORMODYNE;TRANDATE) injection 5 mg 10 ml lidocaine hydrochloride 10 mg/ml injection (2 sources) Antiarrhythmic, Amide Local Anesthetic Start: 09-14-2019 End: 09-14-2019 lidocaine PF 1 % injection 1 mL Start: 07-13-2019 End: 07-13-2019 lidocaine 1 % injection 5 mL lisinopril 30 mg oral tablet (20 sources) Angiotensin Converting Enzyme Inhibitor Start: 02-22-2025 lisinopril 30 mg ora l tablet Dose : 30 mg = 1 tab(s), Oral, qDay, # 100 tab(s), 1 Refill(s), Pharmacy: [id number], 180.3, cm, 05/16/25 14:22:00 EDT, Height, kg, 05/16/25 14:22:00 EDT, Dosing Weight Start Date: 05/16/25 Status: Ordered Quantity: 100.0 Unit: tab(s) Repeat number: 2 Start: 07-03-2023 End: 02-22-2025 Lisinopril 20 mg tablet Disc ontinued 30 mg PO DAILY July 03, 2023 12:00am February 22, 2025 5:17pm Start: 07-03-2023 take 30 mg by mouth once daily Lisinopril Active 30 MG PO DAILY July 02, 2023 11:00pm Start: 06-09-2023 lisinopril 30 mg oral tablet Dose : 30 mg = 1 tab(s), Oral, qDay, # 100 tab(s), 0 Refill(s), Pharmacy: [id number], 180.3, cm, 08/31/24 10:01:00 EST, Height, kg, 08/31/24 10:01:00 EST, Dosing Weight Start Date: 09/13/24 Status: Ordered Quantity: 100.0 Unit: tab(s) Repeat number: 1 Start: 11-06-2022 End: 07-03-2023 take 1 tablet by mouth once daily Lisinopril 20 mg tablet Discontinued 20 mg PO DAILY 30 30 0 November 06, 2022 1:00am July 03, 2023 10:19pm magnesium hydroxide 80 mg/ml oral suspension (1 source) Start: 07-10-2019 take 30 mL by mouth once daily as needed for constipation 30 mL, Oral, DAILY PRN, Constipation, Starting 07/10/19 at 1517 First line therapy for constipation. melatonin 3 mg oral tablet (2 sources) Start: 07-12-2019 End: 07-12-2019 melatonin tablet 3 mg Misc Medication (1 source) Start: 11-29-2024 Misc Medicatio n 0 Refill(s), 74.8 Start Date: 11/29/24 Status: Ordered Repeat number: 1 1 ml morphine sulfate 4 mg/ml injection (5 sources) Opioid Agonist Start: 03-31-2020 morphine sulfa te (PF) injection 2 mg Start: 09-14-2019 morphine injec tion 2 mg Start: 09-14-2019 morphine injec tion 1 mg Mupirocin (2 sources) RNA Synthetase Inhibitor Antibacterial Start: 06-15-2021 mupirocin 2% top ical ointment Apply 1 lm, Topical, BID, # 15 gram(s), 1 Refill(s), Pharmacy: [id number], Ointment, 180, cm, 06/11/21 13:15:00 EDT, Height, 77.9, kg, 06/11/21 13:15:00 EDT, Dosing Weight Start Date: 06/15/21 Status: Ordered 2 ml ondansetron 2 mg/ml injection (2 sources) Serotonin-3 Receptor Antagonist Start: 09-14-2019 End: 09-14-2019 ondansetron (ZOFRAN) injection 4 mg Start: 07-10-2019 4 mg, Intraven ous, EVERY 6 HOURS PRN, Nausea, Starting 07/10/19 at 1517 oxyCODONE (1 source) Opioid Agonist Start: 09-14-2019 End: 09-14-2019 oxyCODONE (ROXICODONE) immediate release tablet 5 mg pancrelipase 12,000 units-38,000 units-60,000 units oral delayed release capsule (5 sources) Start: 12-03-2021 pancrelipase 1 2,000 units-38,000 units-60,000 units oral delayed release capsule 3 caps(s), Oral, QIDM, 0 Refill(s) Start Date: 12/03/21 Status: Ordered Start: 08-03-2021 pancrelipase 1 2,000 units-38,000 units-60,000 units oral delayed release capsule Dose = 6 cap(s), Oral, QIDM, # 720 cap(s), 11 Refill(s), Pharmacy: [facility]/pharmacy #[id number], 180, cm, 07/20/21 14:03:00 EDT, Height, kg, 07/20/21 14:03:00 EDT, Dosing Weight Start Date: 08/03/21 Status: Ordered pantoprazole 40 mg delayed release oral tablet (1 source) Proton Pump Inhibitor take 1 tablet by mouth once daily pantoprazole (PROTONIX) 40 MG tablet Take 40 mg by mouth daily 0 Active pantoprazole (PROTONIX) injection 40 mg (1 source) Start: 03-31-20 pantoprazole (PROTONIX) injection 40 mg Promethazine (2 sources) Phenothiazine Start: 03-31-20 promethazine (PHENERGAN) tablet 12.5 mg Start: 09-14-2019 End: 09-14-2019 promethazine (PHENERGAN) inj ection 6.25 mg saw palmetto oral capsule (2 sources) Start: 03-08-2024 take 1 capsule by mouth once daily saw palmetto oral capsule Dose = 1 cap(s), Oral, Daily, # 90 cap(s), 0 Refill(s) Start Date: 03/08/24 Status: Ordered 3 ml sodium chloride 9 mg/ml injection (15 sources) Start: 03-31-2020 10 mL, Intrave nous, EVERY 12 HOURS SCHEDULED (2 times per day), First dose on Fri03/31/20 at 0900 Start: 03-31-2020 take 10 mL intraveno us route once as needed 10 mL, Intravenous, PRN, Line Care, After every IV line use, Starting Fri03/31/20 at 0124 Start: 03-31-2020 End: 04-01-2020 Intravenous, at 125 mL/hr, CONTINUOUS, Starting Fri03/31/20 at 0145 Start: 09-29-2019 0.9 % sodium c hloride infusion Start: 09-14-2019 sodium chlorid e flush 0.9 % injection 10 mL Start: 07-12-2019 sodium chlorid e flush 0.9 % injection 10 mL Start: 07-12-2019 sodium chlorid e (PF) 0.9 % injection 10 mL Start: 07-10-2019 10 mL, Intrave nous, EVERY 12 HOURS SCHEDULED (2 times per day), First dose on 07/10/19 at 2100 Start: 07-10-2019 take 10 mL intraveno us route once as needed 10 mL, Intravenous, PRN, Line Care, After every IV line use, Starting 07/10/19 at 1517 Start: 07-10-2019 End: 07-14-2019 Intravenous, at 75 mL/hr, CONTINUOUS, Starting 07/10/19 at 1545 Start: 07-10-2019 End: 07-10-2019 0.9 % sodium chloride bolus traZODone hydrochloride 50 mg oral tablet (2 sources) Serotonin Reuptake Inhibitor Start: 11-29-2024 take 1 tablet by mouth once daily at bedtime traZODone (DESYREL) 50 mg tablet Take 50 mg by mouth daily at bedtime. 11/29/2024 Active vitamin B12 (5 sources) Vitamin B12 Start: 03-08-2024 Vitamin B12 0 Refill(s) Start Date: 03/08/24 Status: Ordered Repeat number: 1 Start: 03-08-2024 Vitamin B12 0 Refill(s) Start Date: 03/08/24 Status: Ordered Vitamin D3 50 mcg (2000 intl units) oral tablet (4 sources) Start: 03-08-2024 Vitamin D3 50 mcg (2000 intl units) oral tablet Dose : 50 mcg = 1 tab(s), Oral, qDay, # 100 tab(s), 3 Refill(s), Pharmacy: [id number], 181.4, cm, 03/08/24 9:09:00 EDT, Height, kg, 03/08/24 9:09:00 EDT, Dosing Weight Start Date: 03/08/24 Status: Ordered Quantity: 100.0 Unit: tab(s) Repeat number: 4 Start: 03-08-2024 Vitamin D3 50 mcg (2000 intl units) oral tablet Dose : 50 mcg = 1 tab(s), Oral, qDay, # 100 tab(s), 3 Refill(s), Pharmacy: [facility], 181.4, cm, 03/08/24 9:09:00 EDT, Height, kg, 03/08/24 9:09:00 EDT, Dosing Weight Start Date: 03/08/24 Status: Ordered Completed/Discontinued Medications Medication Drug Class(es) Dates Sig (Normalized) Sig (Original) acetaminophen 325 mg / HYDROcodone bitartrate 5 mg oral tablet (20 sources) Opioid Agonist Start: 12-17-2021 End: 11-05-2022 take 1 tablet by mouth every six hours Hydrocodone-Acetami nophen Discontinued 1 TABLET PO EVERY 6 HOURS 07 29July 09, 2022 November 05, 2022 3:06pm Start: 05-31-2021 End: 11-05-2022 Hydrocodone-Acetaminophen 5- 325 mg tablet Discontinued 1 {tbl} PO EVERY 6 HOURS as needed for pain 10 3 0 July 09, 2022 November 05, 2022 4:06pm Pancreatitis Acute pancreatitis without necrosis or infection, unspecified Start: 09-14-2019 End: 09-19-2019 take 1 tablet by mouth every six hours as needed for pain, then take 1 tablet by mouth as needed for pain HYDROcodone-acetaminophen (NORCO) 5-325 MG per tablet Indications: Chronic cholecystitis Take 1 tablet by mouth every 6 hours as needed for Pain for up to 5 days. Intended supply: 5 days. Take lowest dose possible to manage pain 20 tablet 0 09/14/2019 09/19/2019 Active calcium chloride 0.0014 meq/ ml / potassium chloride 0.004 meq/ml / sodium chloride 0.103 meq/ml / sodium lactate 0.028 meq/ml injectable solution (3 sources) Start: 09-29-2019 End: 09-29-2019 lactated ringers infusion Start: 09-14-2019 lactated ringe rs infusion Start: 07-12-2019 End: 07-13-2019 lactated ringers infusion ceFAZolin 2000 mg injection (1 source) Cephalosporin Antibacterial Start: 09-29-2019 End: 09-29-2019 ceFAZolin (ANCEF) 2 g in dextrose 4 % 100 mL IVPB (premix) cefepime (1 source) Cephalosporin Antibacterial Start: 07-10-2019 End: 07-11-2019 cefepime (MAXIPIME) 2 g IVPB extended (mini-bag) cefepime (MAXIPIME) 2 g IVPB minibag (1 source) Start: 07-10-2019 End: 07-10-2019 cefepime (MAXIPIME) 2 g IVPB minibag celecoxib 400 mg oral capsule (1 source) Nonsteroidal Anti-inflammatory Drug Start: 09-14-2019 End: 09-14-2019 celecoxib (CELEBREX) capsule 400 mg cholestyramine resin 4000 mg powder for oral suspension (10 sources) Bile Acid Sequestrant Start: 06-18-2019 End: 03-31-2020 take 1 dose by mouth twice daily Cholestyramine 4 GM Oral Packet use one PACKET TWICE DAILY Quantity: 60 Refills: 0 Ordered: 19-Sep-2019 DO Start : 18-Jun-2019 Active famotidine 40 mg oral tablet (6 sources) Histamine-2 Receptor Antagonist Start: 11-03-2019 take 0.5 tablet by mouth twice daily Famotidine 40 MG Oral Tablet TAKE 1/2 (ONE-HALF) OF A TABLET BY MOUTH TWICE DAILY Quantity: 30 Refills: 0 Ordered: 02-Jan-2020 DO Start : 03-Nov-2019 Active Start: 09-14-2019 End: 09-14-2019 famotidine (PEPCID) tablet 2 0 mg gabapentin 300 mg oral capsule (1 source) Anti-epileptic Agent Start: 09-14-2019 End: 09-14-2019 gabapentin (NEURONTIN) capsule 300 mg gadobutrol (GADAVIST) injection 7 mL (1 source) Start: 03-31-2020 End: 03-31-2020 gadobutrol (GADAVIST) injection 7 mL gentamicin (GARAMYCIN) 340 mg in dextrose 5 % 250 mL IVPB (1 source) Start: 07-11-2019 End: 07-11-2019 gentamicin (GARAMYCIN) 340 mg in dextrose 5 % 250 mL IVPB indomethacin 50 mg rectal suppository (2 sources) Nonsteroidal Anti-inflammatory Drug Start: 09-29-2019 End: 09-29-2019 indomethacin (INDOCIN) 50 MG suppository 100 mg Start: 07-12-2019 End: 07-12-2019 indomethacin (INDOCIN) 50 MG suppository 50 mg 1 ml ketorolac tromethamine 30 mg/ml cartridge (1 source) Nonsteroidal Anti-inflammatory Drug, Cyclooxygenase Inhibitor Start: 03-31-2020 End: 03-31-2020 30 mg, Intravenous, EVERY 6 HOURS, First dose on Fri03/31/20 at 0145, For 8 doses Do not administer for more than 5 days. LORazepam 0.5 mg oral tablet (20 sources) Benzodiazepine Start: 03-08-2024 End: 05-07-2024 LORazepam 0.5 mg oral tablet Dose : 0.5 mg = 1 tab(s), Oral, qDay, PRN as needed for anxiety, Use Start Date: 03/08/24 Stop Date: 05/07/24 Status: Ordered Quantity: 8.0 Unit: tab(s) Repeat number: 2 Indications: Generalized anxiety disorder; Start: 08-11-2023 End: 10-10-2023 LORazepam 0.5 mg oral tablet Dose : 0.5 mg = 1 tab(s), Oral, qDay, PRN as needed for anxiety, Use Start Date: 08/11/23 Stop Date: 10/10/23 Status: Ordered Start: 09-14-2020 take 0.5 mg by mouth twice rick ly Lorazepam Active 0.5 MG PO TWICE A DAY December 18, 2021 12:00am Start: 03-31-2020 End: 04-16-2020 take 1 tablet by mouth twice daily as needed for anxiety LORazepam (ATIVAN) 0.5 MG tablet Indications: Anxiety Take 1 tablet by mouth 2 times daily as needed for Anxiety for up to 15 days. 30 tablet 0 04/01/2020 04/16/2020 Active 1 ml meperidine hydrochloride 25 mg/ml cartridge (1 source) Opioid Agonist Start: 09-14-2019 End: 09-14-2019 meperidine (DEMEROL) injection 12.5 mg meropenem (MERREM) 2 g in sodium chloride 0.9 % 100 mL extended infusion IVPB (1 source) Start: 07-11-2019 End: 07-13-2019 meropenem (MERREM) 2 g in sodium chloride 0.9 % 100 mL extended infusion IVPB 100 ML metroNIDAZOLE 5 MG/ML Injection (1 source) Nitroimidazole Antimicrobial Start: 07-10-2019 End: 07-10-2019 metronidazole (FLAGYL) 500 mg in NaCl 100 mL IVPB premix omeprazole 40 mg delayed release oral capsule (20 sources) Proton Pump Inhibitor Start: 03-09-2020 End: 07-08-2024 take 1 capsule by mouth once daily Omeprazole 40 mg capsule,delayed release(DR/EC) Discontinued 40 mg PO DAILY December 17, 2021 1:00am July 08, 2024 8:02am microencapsulated potassium chloride 10 meq extended release oral tablet (1 source) Start: 07-11-2019 End: 07-11-2019 potassium chloride (KLOR-CON M) extended release tablet 40 mEq sertraline 50 mg oral tablet (13 sources) Serotonin Reuptake Inhibitor Start: 07-12-2020 take 1 tablet by mouth once daily Sertraline HCl - 50 MG Oral Tablet TAKE 1 TABLET BY MOUTH DAILY Quantity: 30 Refills: 0 Ordered: 11-Aug-2020 DO Start : 12-Jul-2020 Active traMADol hydrochloride 50 mg oral tablet (11 sources) Opioid Agonist Start: 04-01-2020 End: 04-06-2020 take 1 tablet by mouth every six hours as needed for pain traMADol HCl - 50 MG Oral Tablet TAKE 1 TABLET EVERY 6 HOURS NEEDED FOR PAIN Quantity: 20 Refills: 0 Ordered: 01-Apr-2020 DO Start : 01-Apr-2020 Active Start: 07-12-2019 traMADol (ULTR AM) tablet 50 mg Problems Active Problems Problem Classification Problem Date Documented Date Episodic/Chronic Abdominal pain (20 sources) Abdominal pain; Translations: [Unspecified abdominal pain] 02-21-2022 Episodic Anxiety disorders (20 sources) Anxiety; Translations: [Anxiety disorder] Onset: 2 06-03-2020 Chronic Biliary tract disease (5 sources) Stenosis of bile duct; 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] Onset: 9 07-11-2019 Chronic Biliary tract disease (4 sources) Chronic cholecystitis; Translations: [Chronic cholecystitis] 09-14-2019 Episodic Cardiac dysrhythmias (2 sources) Sinus bradycardia; Translations: [Bradycardia, unspecified] 06-09-2024 Episodic Chronic kidney disease (7 sources) Chronic kidney disease stage 3A ; Translations: [Chronic kidney disease, stage 3a] 08-11-2023 Chronic Chronic kidney disease (2 sources) Chronic kidney disease; Translations: [Chronic kidney disease, stage 3a] Onset: 3 Diseases of white blood cells (4 sources) Leukocytosis; Translations: [Leukocytosis] Onset: 9 03-19-2019 Chronic Disorders of lipid metabolism (13 sources) Hyperlipidemia; Translations: [Hyperlipidemia, unspecified] Onset: 2 05-21-2019 Chronic Esophageal disorders (11 sources) Gastroesophageal reflux disease; Translations: [Gastroesophageal reflux disease without esophagitis] 07-15-2022 Chronic Essential hypertension (20 sources) Malignant hypertension; Translations: [Essential (primary) hypertension] 11-14-2022 Chronic Fever of unknown origin (4 sources) Fever; Translations: [Fever] 03-24-2019 Episodic Gastritis and duodenitis (2 sources) Gastritis; Translations: [Gastritis, unspecified, without bleeding] 02-22-2025 Episodic Genitourinary symptoms and ill-defined conditions (7 sources) Acute retention of urine ; Translations: [Other retention of urine] 03-29-2023 Episodic Headache; including migraine (7 sources) Generalized headache 11-13-2022 Episodic Hyperplasia of prostate (6 sources) Benign prostatic hypertrophy with outflow obstruction; Translations: [Benign prostatic hyperplasia with lower urinary tract symptoms] 03-30-2024 Chronic Hypertension with complications and secondary hypertension (1 source) Chronic kidney disease due to hypertension; Translations: [Hypertensive chronic kidney disease with stage 1 through stage 4 chronic kidney disease, or unspecified chronic kidney disease] Chronic Inflammation; infection of eye (except that caused by tuberculosis or sexually transmitteddisease) (2 sources) Blepharitis of upper and lower eyelids of bilateral eyes; Translations: [Unspecified blepharitis right eye, upper and lower eyelids] 02-07-2025 Episodic Miscellaneous mental health disorders (1 source) Insomnia disorder related to another mental disorder 02-14-2025 Chronic Neoplasms of unspecified nature or uncertain behavior (5 sources) Neoplasm of uncertain behavior of pancreas; Translations: [Neoplasm of uncertain behavior of other and unspecified digestive organs] Episodic Noninfectious gastroenteritis (1 source) Noninfectious enteritis; Translations: [Noninfective gastroenteritis and colitis, unspecified] Onset: Episodic Nonspecific chest pain (16 sources) Chest pain; Translations: [Chest pain, unspecified] Episodic Nutritional deficiencies (9 sources) Malnutrition (calorie); 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] Onset: 9 07-13-2019 Chronic Other aftercare (13 sources) Peripherally inserted central venous catheter in situ; Translations: [Encounter for adjustment and management of vascular access device] 07-28-2019 Episodic Other aftercare (1 source) Long-term current use of drug therapy; Translations: [Other custodial (current) drug therapy] Episodic Other and unspecified benign neoplasm (2 sources) Lipoma of chest wall 07-15-2022 Episodic Other and unspecified benign neoplasm (7 sources) Tubular adenoma of colon; Translations: [Benign neoplasm of colon, unspecified] 04-08-2023 Episodic Other and unspecified benign neoplasm (2 sources) Benign neoplasm of colon, unspecified; Translations: [Benign neoplasm of colon] 04-08-2023 Episodic Other circulatory disease (4 sources) H/O: hypertension; Translations: [Personal history of other diseases of the circulatory system] 01-07-2024 Episodic Other endocrine disorders (7 sources) Hyperparathyroidism 05-21-2019 Chronic Other gastrointestinal disorders (4 sources) Mass of pancreas; Translations: [Pancreatic mass] 05-30-2019 Episodic Other gastrointestinal disorders (14 sources) Abdominal bloating 03-23-2021 Episodic Other gastrointestinal disorders (14 sources) History of pancreatitis; Translations: [Personal history of other diseases of the digestive system] 03-07-2022 Episodic Other injuries and conditions due to external causes (1 source) Foreign body of eye region; Translations: [Foreign body on external eye, part unspecified, right eye, initial encounter] 01-13-2025 Episodic Other liver diseases (1 source) High enzyme level in serum; Translations: [Elevated lipase] 05-29-2019 Episodic Other liver diseases (3 sources) High lipase level in serum; Translations: [Elevated lipase] 05-29-2019 Episodic Other lower respiratory disease (13 sources) Dyspnea on exertion; Translations: [Dyspnea, unspecified] 12-29-2021 Episodic Other lower respiratory disease (19 sources) Dyspnea; Translations: [Dyspnea, unspecified] 12-29-2021 Episodic Other lower respiratory disease (2 sources) Dyspnea, unspecified; Translations: [Other respiratory abnormalities] Episodic Other lower respiratory disease (7 sources) Snoring 11-13-2022 Episodic Other lower respiratory disease (2 sources) Anterior pleuritic pain; Translations: [Pleurodynia] 06-09-2024 Episodic Other male genital disorders (6 sources) Impotence 08-11-2023 Chronic Other male genital disorders (2 sources) Male erectile dysfunction, unspecified; Translations: [Male erectile dysfunction, unspecified] Onset: 3 Chronic Other nutritional; endocrine; and metabolic disorders (4 sources) Hyperbilirubinemia; Translations: [Hyperbilirubinemia] Onset: 9 03-19-2019 Chronic Other screening for suspected conditions (not mental disorders or infectious disease) (20 sources) Abnormal findings diagnostic imaging of liver+biliary tract; Translations: [Liver function tests abnormal] Onset: 3 05-29-2019 Episodic Other skin disorders (8 sources) Epidermoid cyst 10-23-2022 Episodic Other upper respiratory disease (9 sources) Polyp of nasal cavity and/or nasal sinus; Translations: [Nasal polyp, unspecified] 11-14-2022 Episodic Other upper respiratory disease (7 sources) Polyp of right nasal cavity 11-13-2022 Episodic Pancreatic disorders (not diabetes) (20 sources) Chronic pancreatitis; Translations: [Other chronic pancreatitis] Onset: 2 11-03-2019 Chronic Pancreatic disorders (not diabetes) (20 sources) Abscess of pancreas; Translations: [Recurrent pancreatitis] Onset: 9 03-24-2019 Episodic Residual codes; unclassified (4 sources) Tobacco user; Translations: [Tobacco abuse disorder] Onset: 9 03-19-2019 Chronic Residual codes; unclassified (1 source) Restlessness 11-29-2024 Chronic Residual codes; unclassified (5 sources) Past history of procedure; Translations: [History of biliary stent insertion] 07-12-2019 Episodic Residual codes; unclassified (3 sources) High risk of heart disease 08-31-2024 Episodic Residual codes; unclassified (1 source) H/O: risk factor; Translations: [Other specified personal risk factors, not elsewhere classified] Episodic Screening and history of mental health and substance abuse codes (3 sources) Ex-tobacco user 08-31-2024 Episodic Unclassified (4 sources) Long-term current use of proton pump inhibitor therapy 07-15-2022 Unclassified (6 sources) Long-term current use of benzodiazepine 08-11-2023 Past or Other Problems Problem Classification Problem Date Documented Da te Episodic/Chronic Conditions associated with dizziness or vertigo (1 source) Dizziness and giddiness; Translations: [Dizziness and giddiness] Onset: 03-01-2025 Episodic Malaise and fatigue (3 sources) Asthenia; Translations: [Weakness] Onset: 01-05-2025 12-30-2024 Episodic Other diseases of kidney and ureters (2 sources) Disorder of kidney and ureter, unspecified; Translations: [Disorder of kidney and ureter, unspecified] Onset: 10-14-2023 Episodic Other gastrointestinal disorders (7 sources) Personal history of other diseases of the digestive system; Translations: [Personal history of other diseases of digestive system] Onset: 01-10-2025 Episodic Other liver diseases (4 sources) Jaundice; Translations: [Jaundice] Onset: 05-28-2019 05-28-2019 Episodic Other lower respiratory disease (1 source) Shortness of breath; Translations: [Shortness of breath] Onset: 12-08-2024 Episodic Pleurisy; pneumothorax; pulmonary collapse (4 sources) Bilateral pleural effusion; Translations: [Bilateral pleural effusion] Onset: 03-19-2019 03-19-2019 Episodic Septicemia (except in labor) (5 sources) Sepsis due to Enterobacter; Translations: [Enterobacter sepsis] Onset: 07-11-2019 07-12-2019 Episodic Results Test Name Value Interpretation Reference Range Facility Gastroenterology Visit Repor ton 07-19-2025 Gastroenterology Visit Report [facility] [address] [place] [address] OFFICE VISIT Date of Service: 07/19/25 MR#: [id number] Acct: [id number] Name: CHLOE CHENEY Rep #: [id number] : [id number] Provider: Lucio Lane DO Age/Sex: 64/M Location: [facility] [place] Status: Signed Intake Vital Signs 12/22/24 12:29 02/22/25 13:05 Height 5 ft 11 in 5 ft 11 in Intake Visit Reasons: 6 M FU Chief Complaint: f/u 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: No Is patient in pain?: No Allergies amoxicillin (From Augmentin) Allergy (Verified 07/19/25 10:23) Swelling clavulanic acid (From Augmentin) Allergy (Verified 07/19/25 10:23) Swelling Penicillins Allergy (Verified 07/19/25 10:23) PT UNSURE OF REACTION hydromorphone (From Dilaudid) Adverse Reaction (Verified 07/19/25 10:23) Other Medications ???Medication ???Instructions ???Recorded ???Confirmed ???Type cholecalciferol (vitamin D3) 50 50 mcg PO DAILY 01/01/23 07/19/25 History mcg (2,000 unit) capsule (Vitamin D3) [id number] 2 cap PO TIDCM 90 days #540 caps 0 07/23/24 07/19/25 Rx 36,000-114,000-180,000 unit capsule,delay rel (Creon) ascorbic acid (vitamin C) 500 mg 500 mg PO DAILY 02/22/25 07/19/25 History tablet (C-500) hydroxyzine HCl 10 mg tablet 10 - 20 mg PO TID PRN anxiety 01/2607/19/25 History lisinopril 30 mg tablet 30 mg PO DAILY 02/22/25 07/19/25 H istory [facility] Medical History Wears glasses High cholesterol Non-smoker Hypertension History of echocardiogram Anxiety Hx of pancreatitis Pancreatitis Surgical History History of ERCP Hx of cholecystectomy S/P appendectomy Family History Father Myocardial infarction Social History household members: none Smoking Status: Former smoker HPI HPI Chief Complaint: f/u Details: CHLOE CHENEY, is a 64 M who presents to the office today for f/u OSH hospitalization ? MRI .05.17 mild pancreatic inflammation, acute interstitial pancreatitis with loss of volume at head, dilation of pancreatic duct and CBD, cannot r/p neoplasm. *[facility] hospitalization 12.17.21-12.21.21 for management of acute on chronic pancreatitis with dyspnea and CP. Reports minimum of 20 pancreatitis episodes resulting in pancreatic pseudocyst. Has required EUS guided drainage of pseudocyst, surgery not pursued. Continue previously prescribed Creon. Established with GI Dr. Cole. ? MCRP 12.19.21 mildly dilated CHD and CBD; pancreatic duct dilated in body/tail 6mm; ill-defined 4.7x2.4x4cm pancreatic head mass with associated MPD dilation ? ERCP 12.20.21 single biliary stricture of lower MBD with dilation; biliary sphincterotomy; CBD dilated. Cytology negative for malignancy OV 01.07.22 doing well since discharge. Recommend EUS. EUS 01.24.22 CBD dilation 9mm without stones, sludge or stricture; pancreatic parenchymal abnormalities, pancreatic duct dilation 5mm; inflammatory mass-like region of pancreatic head [id number] with well defined borders. FNA without pathologic changes. OV 03.07.[address] chest/abd/pel 07.04.22 (ED) mild intrahepatic biliary ductal dilation, CBD, pancreatic duct; pancreas diffusely enlarged with prominence of head and uncinate; borderline retroperitoneal lymphadenopathy. OV 11.05.22 doing well overall. Continue Creon. ? Colonoscopy 01.17.23 diverticulosis; two sessile TA/hyperplastic polyps OV 04.08.23 Continue Creon. OV 10.06.23 reports he is ???feeling crappy??? has some concern about BP and HR which he is discussing with PCP next week. Also feels the weather is causing him to feel generally worse with the lack of sunshine: reports feeling totally different when it is toña outside. He has also been eating less with smaller meals every 1-2 days because he does not feel as though his food digests. OV 03.05.24 pt reports that he is having no Gi symptoms of concern. reports a formed/soft bm per day. Pt states that he is managing his symptoms with his diet. Pt continues with creon and omeprazole. OV 07.08.24 pt reports that he is feeling well overall and denies GI symptoms of concern at this time. Reports regular bm. Continues with Creon. Pt reports he stopped taking omeprazole a few months ago and has felt better since stopping it. OV 01.10.25 pt reports that he is feeling well overall and denies GI symptoms of concern at this time. Pt reports back pain from arthritis. OV 07/19/25 for chronic pancreatitis and is doing well with that issue as (more content not included)... Normal [facility] LIPOAon 05-25-2025 Lipoprotein a [Moles/Vol] 134.4 nmol/L High <75.0 [facility] Comment on above: Result Comment: This test was developed and its performance characteristics determined by [employer]. It has not been cleared or approved by the Food and Drug Administration. Note: Values greater than or equal to 75.0 nmol/L may indicate an independent risk factor for CHD, but must be evaluated with caution when applied to non- populations due to the influence of genetic factors on Lp(a) across ethnicities. Performed At: [facility] [address] [id number] Diana Ortiz PhD Ph:[phone] Performed By: #### V IDH, LIPID, [id number], CBC, CMP, ADIFF, GFR, TSHR, A1C, ANEU #### [address] [address] #### B12 #### [address] [address] .Auto Diffon 05-24-2025 Basophil, Absolute 0.1 10 3/mcL Normal 0.0-0.3 [facility] Comment on above: Performed By: #### 4 [id number], LIPID #### [address] [address] Basophils/100 WBC (Bld) 0.8 % Normal 0.0-2.5 [facility] Comment on above: Performed By: #### 4 [id number], LIPID #### [address] [address] Eosinophil, Absolute 0.1 10 3/mcL Normal 0.0-0.7 [facility] Comment on above: Performed By: #### 4 91702, LIPID #### [address] [address] Eosinophils/100 WBC (Bld) 1.4 % Normal 0.0-6.0 [facility] Comment on above: Performed By: #### 4 [id number], LIPID #### [address] [address] Lymphocyte, Absolute 1.9 10 3/mcL Normal 0.9-4.3 [facility] Comment on above: Performed By: #### 4 [id number], LIPID #### [address] [address] Lymphocytes/100 WBC (Bld) 24.1 % Normal 20.0-40.0 [facility] Comment on above: Performed By: #### 4 [id number], LIPID #### [address] [place], [place] [address] Monocyte, Absolute 0.6 10 3/mcL Normal 0.1-1.4 [facility] Comment on above: Performed By: #### 4 [id number], LIPID #### [address] [address] Monocytes/100 WBC (Bld) 8.1 % Normal 2.0-13.0 [facility] Comment on above: Performed By: #### 4 71003, LIPID #### [address] [address] Neutrophils/100 WBC (Bld) 65.6 % Normal 50.0-75.0 [facility] Comment on above: Performed By: #### 4 97922, LIPID #### [address] [address] .GFRon 05-24-2025 Estimated Glomerular Filtration Rate 53 ml/min/1.73sqm Normal [facility] Comment on above: Result Comment: Stages of Chronic Kidney Disease (CKD) Stage Description eGFR(ml/min/1.73 sq.m.) CKD 1 Normal kidney function or >=90 normal kindney function with possible kidney damage (ex. Proteinuria) CKD 2 Kidney damage with mild loss 60-89 of kidney function CKD 3a Mild to moderate loss of kidney 45-59 function CKD 3b Moderate to severe loss of 30-44 of kindey function CKD 4 Severe loss of kidney function 15-29 CKD 5 Kidney failure <15 Note: (go live 2024) the eGFR calculation was updated to the 2020 CKD-EPI creatinine equation without a race factor to calculate the eGFR results. Performed By: #### 4 [id number], LIPID #### [address] [place], [place] [address] .NEUABSon 05-24-2025 Neutrophil, Absolute 5.1 10 3/mcL Normal 2.3-8.1 [facility] Comment on above: Performed By: #### 4 65537, LIPID #### [address] [place], [place] [address] B12on 05-24-2025 Cobalamin (Vitamin B12) [Mass/Vol] 1676 pg/mL High 211-911 [facility] Comment on above: Performed By: #### V IDH, LIPID, [id number], CBC, CMP, ADIFF, GFR, TSHR, A1C, ANEU #### [address] [address] #### B12 #### [facility] [address] [place] [address] CBCon 05-24-2025 Erythrocyte distribution width (RBC) [Ratio] 13.1 % Normal 11.5-15.5 [facility] Comment on above: Performed By: #### 4 12536, LIPID #### [address] [address] Hematocrit (Bld) [Volume fraction] 45.8 % Normal 40.0-52.0 [facility] Comment on above: Performed By: #### 4 96119, LIPID #### [address] [address] Hgb 15.5 G/dL Normal 13.0-17.5 [facility] Comment on above: Performed By: #### 4 84736, LIPID #### [address] [address] MCH (RBC) [Entitic mass] 29.8 pg Normal 27.0-33.0 [facility] Comment on above: Performed By: #### 4 68358, LIPID #### [address] [address] MCHC 33.9 G/dL Normal 32.0-36.0 [facility] Comment on above: Performed By: #### 4 39030, LIPID #### [address] [address] MCV (RBC) [Entitic vol] 88.0 fL Normal 81.0-100.0 [facility] Comment on above: Performed By: #### 4 05752, LIPID #### [address] [address] Platelet 180 10 3/mcL Normal 150-450 [facility] Comment on above: Performed By: #### 4 59741, LIPID #### [address] [address] Platelet mean volume (Bld) [Entitic vol] 9.2 fL Normal 6.4-10.5 [facility] Comment on above: Performed By: #### 4 65391, LIPID #### [address] [address] RBC 5.20 10 6/mcL Normal 4.50-6.00 [facility] Comment on above: Performed By: #### 4 51489, LIPID #### [address] [address] WBC 7.8 10 3/mcL Normal 4.5-10.8 [facility] Comment on above: Performed By: #### 4 76561, LIPID #### [address] [address] CMPon 05-24-2025 Albumin Level 4.1 G/dL Normal 3.4-4.8 [facility] Comment on above: Performed By: #### 4 70583, LIPID #### [address] [address] Albumin/Globulin [Mass ratio] 1.2 {ratio} Normal 1.1-2.5 [facility] Comment on above: Performed By: #### 4 06854, LIPID #### [address] [address] ALP [Catalytic activity/Vol] 72 U/L Normal 40-135 [facility] Comment on above: Performed By: #### 4 30741, LIPID #### [address] [address] ALT [Catalytic activity/Vol] 24 U/L Normal 16-63 [facility] Comment on above: Performed By: #### 4 68872, LIPID #### [address] [address] AST [Catalytic activity/Vol] 18 U/L Normal 10-40 [facility] Comment on above: Performed By: #### 4 86467, LIPID #### [address] [address] Bili Total 0.9 mg/dL Normal 0.2-1.0 [facility] Comment on above: Result Comment: Use of this assay is not recommended for patients undergoing treatment with eltrombopag due to the potential for falsely elevated results. Performed By: #### 4 69551, LIPID #### [address] [address] BUN/Creatinine Ratio 18 ratio Normal 7-27 [facility] Comment on above: Performed By: #### 4 35842, LIPID #### [address] [address] Calcium [Mass/Vol] 9.1 mg/dL Normal 8.4-10.2 [facility] Comment on above: Performed By: #### 4 17003, LIPID #### [address] [address] Chloride [Moles/Vol] 104 mmol/L Normal 98-107 [facility] Comment on above: Performed By: #### 4 69810, LIPID #### [address] [address] CO2 [Moles/Vol] 27 mmol/L Normal 23-31 [facility] Comment on above: Performed By: #### 4 63318, LIPID #### [address] [address] Creatinine [Mass/Vol] 1.47 mg/dL High 0.67-1.17 [facility] Comment on above: Performed By: #### 4 53665, LIPID #### [address] [address] Electrolyte Balance 8.0 mEq/L Normal 4.0-15.0 [facility] Comment on above: Performed By: #### 4 28355, LIPID #### [address] [place], [place] [address] Globulin 3.5 G/dL Normal 2.7-4.4 [facility] Comment on above: Performed By: #### 4 75599, LIPID #### [address] [place], [place] [address] Glucose [Mass/Vol] 88 mg/dL Normal 80-115 [facility] Comment on above: Performed By: #### 4 39014, LIPID #### [address] [address] Potassium [Moles/Vol] 4.3 mmol/L Normal 3.5-5.1 [facility] Comment on above: Performed By: #### 4 27922, LIPID #### [address] [address] Sodium [Moles/Vol] 139 mmol/L Normal 136-145 [facility] Comment on above: Performed By: #### 4 08726, LIPID #### [address] [address] Total Protein 7.6 G/dL Normal 6.4-8.2 [facility] Comment on above: Performed By: #### 4 27535, LIPID #### [address] [address] Urea nitrogen [Mass/Vol] 26 mg/dL High 7-18 [facility] Comment on above: Performed By: #### 4 59250, LIPID #### [address] [address] FOLon 05-24-2025 Folate 16.60 ng/mL Normal 5.38-24.00 [facility] Comment on above: Performed By: #### V IDH, LIPID, [id number], CBC, CMP, ADIFF, GFR, TSHR, A1C, ANEU #### [address] [address] #### B12 #### [facility] [address] [place] [address] LABORATORYOrdered By: SYSTEM SYSTEM on 05-24-2025 Albumin BCP dye [Mass/Vol] 4.1 G/dL Normal 3.4 - 4.8 G/dL AO ADM SS Albumin/Globulin [Mass ratio] 1.2 {ratio} Normal 1.1 - 2.5 ratio AO ADM SS ALP [Catalytic activity/Vol] 72 U/L Normal 40 - 135 U/L AO ADM SS ALT With P-5'-P [Catalytic activity/Vol] 24 U/L Normal 16 - 63 U/L AO ADM SS AST With P-5'-P [Catalytic activity/Vol] 18 U/L Normal 10 - 40 U/L AO ADM SS Basophils (Bld) [#/Vol] 0.1 103/mcL Normal 0.0 - 0.3 10^3/mcL AO Workflow SS Basophils/100 WBC (Bld) 0.8 % Normal 0.0 - 2.5 % AO Workflow SS Bilirubin [Mass/Vol] 0.9 mg/dL Normal 0.2 - 1 .0 mg/dL AO ADM SS Comment on above: Interpretive Data: U se of this assay is not recommended for patients undergoing treatment with eltrombopag due to the potential for falsely elevated results. Calcium [Mass/Vol] 9.1 mg/dL Normal 8.4 - 10. 2 mg/dL AO ADM SS Chloride [Moles/Vol] 104 mmol/L Normal 98 - 10 7 mmol/L AO ADM SS CO2 [Moles/Vol] 27 mmol/L Normal 23 - 31 mmol/L AO ADM SS Cobalamin (Vitamin B12) [Mass/Vol] 1676 pg/mL High 211 - 911 pg/mL AH ADM SS Creatinine [Mass/Vol] 1.47 mg/dL High 0.67 - 1.17 mg/dL AO ADM SS Electrolyte Balance 8.0 mEq/L Normal 4.0 - 15 .0 mEq/L AO ADM SS Eosinophil, Absolute 0.1 103/mcL Normal 0.0 - 0 .7 10^3/mcL AO Workflow SS Eosinophils/100 WBC (Bld) 1.4 % Normal 0.0 - 6.0 % AO Workflow SS Erythrocyte distribution width (RBC) [Ratio] 13.1 % Normal 11.5 - 15.5 % AO Workflow SS Estimated Glomerular Filtration Rate 53 ml/min/1.73sqm Invalid Interpretation Code AO Chemistry S Comment on above: Interpretive Data: Stages of Chronic Kidney Disease (CKD) Stage Description eGFR(ml/min/1.73 sq.m.) CKD 1 Normal kidney function or >=90 normal kindney function with possible kidney damage (ex. Proteinuria) CKD 2 Kidney damage with mild loss 60-89 of kidney function CKD 3a Mild to moderate loss of kidney 45-59 function CKD 3b Moderate to severe loss of 30-44 of kindey function CKD 4 Severe loss of kidney function 15-29 CKD 5 Kidney failure <15 Note: (go live 2024) the eGFR calculation was updated to the 2020 CKD-EPI creatinine equation without a race factor to calculate the eGFR results. Folate [Mass/Vol] 16.60 ng/mL Normal 5.38 - 24.00 ng/mL AH ADM SS Globulin 3.5 G/dL Normal 2.7 - 4.4 G/dL AO ADM SS Glucose [Mass/Vol] 88 mg/dL Normal 80 - 115 mg/dL AO ADM SS Hematocrit (Bld) [Volume fraction] 45.8 % Normal 40.0 - 52.0 % AO Workflow SS Hemoglobin (Bld) [Mass/Vol] 15.5 G/dL Normal 13.0 - 17.5 G/dL AO Workflow SS Lymphocytes (Bld) [#/Vol] 1.9 103/mcL Normal 0.9 - 4.3 10^3/mcL AO Workflow SS Lymphocytes/100 WBC (Bld) 24.1 % Normal 20.0 - 40.0 % AO Workflow SS MCH (RBC) [Entitic mass] 29.8 pg Normal 27.0 - 33.0 pg AO Workflow SS MCHC 33.9 G/dL Normal 32.0 - 36.0 G/dL AO Workflow SS MCV (RBC) [Entitic vol] 88.0 fL Normal 81.0 - 100.0 fL AO Workflow SS Monocytes (Bld) [#/Vol] 0.6 103/mcL Normal 0.1 - 1.4 10^3/mcL AO Workflow SS Monocytes/100 WBC (Bld) 8.1 % Normal 2.0 - 13.0 % AO Workflow SS Neutrophils (Bld) [#/Vol] 5.1 103/mcL Normal 2.3 - 8.1 10^3/mcL AO Workflow SS Neutrophils/100 WBC (Bld) 65.6 % Normal 50.0 - 75.0 % AO Workflow SS Platelet mean volume (Bld) [Entitic vol] 9.2 fL Normal 6.4 - 10.5 fL AO Workflow SS Platelets (Bld) [#/Vol] 180 103/mcL Normal 150 - 450 10^3/mcL AO Workflow SS Potassium [Moles/Vol] 4.3 mmol/L Normal 3.5 - 5.1 mmol/L AO ADM SS Prostate specific Ag [Mass/Vol] 8.40 ng/mL High 0.00 - 4.00 ng/mL AO ADM SS Protein [Mass/Vol] 7.6 G/dL Normal 6.4 - 8.2 G/dL AO ADM SS RBC (Bld) [#/Vol] 5.20 106/mcL Normal 4.50 - 6.00 10^6/mcL AO Workflow SS Sodium [Moles/Vol] 139 mmol/L Normal 136 - 145 mmol/L AO ADM SS TSH Qn 1.08 m[IU]/L Normal 0.36 - 3.74 mcIU/mL AO ADM SS Urea nitrogen [Mass/Vol] 26 mg/dL High 7 - 18 mg/dL AO ADM SS Urea nitrogen/Creatinine [Mass ratio] 18 ratio Normal 7 - 27 ratio AO ADM SS WBC (Bld) [#/Vol] 7.8 103/mcL Normal 4.5 - 10.8 10^3/mcL AO Workflow SS LABORATORYOrdered By: Bambi Perales on 05-24-2025 Cholesterol [Mass/Vol] 201 mg/dL High 0 - 2 00 mg/dL AO ADM SS Comment on above: Interpretive Data: C holesterol Reference Interval: Less than 200 Desirable 200-239 Borderline high risk 240 and above High risk Cholesterol in HDL [Mass/Vol] 37 mg/dL Low 40 - 60 mg/dL AO ADM SS Cholesterol in LDL [Mass/Vol] 118 mg/dL Normal 0 - 130 mg/dL AO ADM SS Triglyceride [Mass/Vol] 228 mg/dL High 0 - 150 mg/dL AO ADM SS Comment on above: Interpretive Data: T riglyceride Reference Interval: Less than 150 Normal 150-199 Borderline high risk 200-499 High risk 500 or higher Very high risk LIPIDon 05-24-2025 Cholesterol [Mass/Vol] 201 mg/dL High 0-200 [facility] Comment on above: Result Comment: Chol esterol Reference Interval: Less than 200 Desirable 200-239 Borderline high risk 240 and above High risk Performed By: #### [id number], LIPID #### [address] [address] Cholesterol in HDL [Mass/Vol] 37 mg/dL Low 40-60 [facility] Comment on above: Performed By: #### 4 [id number], LIPID #### [address] [address] Cholesterol in LDL [Mass/Vol] 118 mg/dL Normal 0-130 [facility] Comment on above: Performed By: #### 4 [id number], LIPID #### [address] [address] Triglyceride [Mass/Vol] 228 mg/dL High 0-150 [facility] Comment on above: Result Comment: Trig lyceride Reference Interval: Less than 150 Normal 150-199 Borderline high risk 200-499 High risk 500 or higher Very high risk Performed By: #### 4 [id number], LIPID #### [address] [address] PSAon 05-24-2025 Prostate Specific Antigen 8.40 ng/mL High 0.00-4.00 [facility] Comment on above: Performed By: #### V IDH, LIPID, [id number], CBC, CMP, ADIFF, GFR, TSHR, A1C, ANEU #### [address] [address] #### B12 #### [facility] [address] [place] [address] TSHRon 05-24-2025 TSH Qn 1.08 m[IU]/L Normal 0.36-3.74 [facility] Comment on above: Performed By: #### 4 [id number], LIPID #### [address] [address] 12 Lead EKGon 02-22-2025 12 Lead EKG [facility] Cardi[facility] [address] [place] [address] 12 Lead EKG 02/22/25 1311 MR#: [id number] Acct: [id number] Name: CHLOE CHENEY Rep #: [id number] : 1960 64 From: Rodo Crabtree MD Attending Dr: Status: DEP ER Ordering Dr: Prince Quintanilla DO Date: 02/22/25 Location: ED Sex: M C Admitted: Test Reason : SOB Blood Pressure : */* mmHG Vent. Rate : 76 BPM Atrial Rate : 76 BPM P-R Int : 140 ms QRS Dur : 96 ms QT Int : 422 ms P-R-T Axes : 63 11 49 degrees QTcB Int : 474 ms Normal sinus rhythm Normal ECG Confirmed by RODO CRABTREE MD ([id number]), editor greeting card WINTER GILLIAM ([id number]) on 02/23/2025 1:32:34 PM Referred By: TL/DH Confirmed By: RODO CRABTREE MD 02/23/25 1332 Date Rodo Crabtree MD CC: Dr. Prince Quintanilla DO; Dr. Bobby Fountain DO Signed Normal [facility] Absolute neutrophil countOrd ered By: Prince Quintanilla on 02-22-2025 Neutrophils (Bld) [#/Vol] 8.6 10*3/uL High 2.0-7.7 [facility] Anion gap in Serum or Plasma Ordered By: Prince Quintanilla on 02-22-2025 Anion gap [Moles/Vol] 13 mmol/L 5-15 [facility] Automated blood erythrocyte countOrdered By: Prince Quintanilla on 02-22-2025 RBC (Bld) [#/Vol] 5.12 10*6/uL Normal 4.6-6.2 [facility] Comment on above: Performed By: #### L 500.3400, L501.2450, L100.0100, L500.2500 #### [facility] [address] [place], [place] [address], [address] Automated blood hematocrit ( percentage)Ordered By: Prince Quintanilla on 02-22-2025 Hematocrit (Bld) [Volume fraction] 44.5 % Normal 40-54 [facility] Comment on above: Performed By: #### L 500.3400, L501.2450, L100.0100, L500.2500 #### [facility] [address] [place], [address] Automated lymphocyte count a s percentage of total leukocytesOrdered By: Prince Quintanilla on 02-22-2025 Lymphocytes/100 WBC (Bld) 11.1 % Low 19-41 [facility] Comment on above: Performed By: #### L 500.3400, L501.2450, L100.0100, L500.2500 #### [facility] [address] [place], [address] BUN/creatinine ratioOrdered By: Prince Quintanilla on 02-22-2025 Urea nitrogen/Creatinine [Mass ratio] 15.6 mg/mg 10-20 [facility] Basic Metabolic Profile (BMP )on 02-22-2025 BUN/CRE 15.6 RATIO Normal 10-20 [facility] Comment on above: Performed By: #### L 500.3400, L501.2450, L100.0100, L500.2500 #### [facility] [address] [place], [address] ECRCL 56.77 ml/min Normal 50-250 [facility] Comment on above: Performed By: #### L 500.3400, L501.2450, L100.0100, L500.2500 #### [facility] [address] [place], [address] GAP 13 Normal 5-15 [facility] Comment on above: Performed By: #### L 500.3400, L501.2450, L100.0100, L500.2500 #### [facility] [address] [place], [address] GFR/1.73 sq M.predicted among non-blacks MDRD (S/P/Bld) [Vol rate/Area] 56 mL/min/{1.73_m2} Low >60 [facility] Comment on above: Result Comment: mL/m in/1.73m2 CKD-EPI Creatinine Equation (2020) Performed By: #### L 500.3400, L501.2450, L100.0100, L500.2500 #### [facility] [address] [place], [address] Basophil percentageOrdered B y: Prince Quintanilla on 02-22-2025 Basophils/100 WBC (Bld) 0.3 % Normal 0-1 [facility] Comment on above: Performed By: #### L 500.3400, L501.2450, L100.0100, L500.2500 #### [facility] [address] [place], [place], [id number] (369) Bilirubin directOrdered By: Prince Quintanilla on 02-22-2025 Bilirubin.direct [Mass/Vol] 0.35 mg/dL High 0.00-0.30 [facility] Comment on above: Performed By: #### L 500.3400, L501.2450, L100.0100, L500.2500 #### [facility] [address] [place], [address] Bilirubin, totalOrdered By: Prince Quintanilla on 02-22-2025 Bilirubin [Mass/Vol] 0.85 mg/dL Normal 0.00-1.30 [facility] Comment on above: Performed By: #### L 500.3400, L501.2450, L100.0100, L500.2500 #### [facility] [address] [place], [address] CBC W/Diff, Automatedon - Absolute Lymph 1.15 X10 3/uL Normal 0.83-4.51 [facility] Comment on above: Performed By: #### L 500.3400, L501.2450, L100.0100, L500.2500 #### [facility] [address] [place], [address] Absolute Neut 8.6 X10 3/uL High 2.0-7.7 [facility] Comment on above: Performed By: #### L 500.3400, L501.2450, L100.0100, L500.2500 #### [facility] [address] [place], [address] IG% 0.300 Normal 0.0-0.9 [facility] Comment on above: Result Comment: IG% - Immature Granulocytes (promyelocytes, myelocytes and metamyelocytes) > 1% indicates that a LEFT SHIFT is Present. Performed By: #### L 500.3400, L501.2450, L100.0100, L500.2500 #### [facility] [address] [place], [address] Nucleated RBC (Bld) [#/Vol] 0 10*3/uL Normal 0-5 [facility] Comment on above: Performed By: #### L 500.3400, L501.2450, L100.0100, L500.2500 #### [facility] [address] [place], [address] RDW SD 38.5 fl Normal 35.1-43.9 [facility] Comment on above: Performed By: #### L 500.3400, L501.2450, L100.0100, L500.2500 #### [facility] [address] [place], [address] Carbon dioxide, total [Moles /volume] in Central venous bloodOrdered By: Prince Quintanilla on 02-22-2025 CO2 [Moles/Vol] 24.3 mmol/L Normal 21.0-32.0 [facility] Comment on above: Performed By: #### L 500.3400, L501.2450, L100.0100, L500.2500 #### [facility] [address] [place], [address] Chloride assayOrdered By: Chidi Quintanilla on 02-22-2025 Chloride [Moles/Vol] 102 mmol/L Normal 98-108 [facility] Comment on above: Performed By: #### L 500.3400, L501.2450, L100.0100, L500.2500 #### [facility] [address] [place], [address] Emergency Department Summary on 02-22-2025 Emergency Department Summary [facility] Medical Records Department [address] [place] [address] Emergency Department Summary 02/22/25 MR#: [id number] Acct: [id number] Name: CHLOE CHENEY Rep #: [id number] : 1960 64 From: Prince Quintanilla DO PCP: Dr. Bobby Fountain DO Status:DEP ER Location: ED HPI History of Present Illness Chief Complaint: General Illness Informant: patient Onset/Context/Timing Onset: Today Context: Gradual Onset Timing: Waxes and wanes Quality: Strange, shaky Location: Generalized Worsened by: Nothing Relieved by: Nothing Narrative Narrative: Patient presents with lightheadedness that began today. Patient states that he checked his pulse oximeter at home and noted it was in the 80s. Patient states he checked his blood pressure at home and it was 148/110. Patient states he has a strange feeling in his chest and upper abdomen. Patient states he feels shaky. Patient states nothing makes his symptoms better and nothing makes them worse. Patient states he does get short of breath at times. Currently, patient denies any shortness of breath. Patient denies any chest pain. Patient denies any nausea or vomiting. Patient does admit to some mild intermittent back pain that comes and goes. [facility] Medical History Wears glasses High cholesterol Non-smoker Hypertension History of echocardiogram Anxiety Hx of pancreatitis Pancreatitis Home Medications ???Medication ???Instructions ???Recorded ???Last Taken ???Type cholecalciferol (vitamin D3) 50 50 mcg PO DAILY 01/01/23 02/22/25 History mcg (2,000 unit) capsule (Vitamin D3) [id number] 2 cap PO TIDCM 90 days #540 caps 0 07/23/24 02/21/25 Rx 36,000-114,000-180,000 unit capsule,delay rel (Creon) ascorbic acid (vitamin C) 500 mg 500 mg PO DAILY 02/22/25 02/22/25 History tablet (C-500) hydroxyzine HCl 10 mg tablet 10 - 20 mg PO TID PRN anxiety 01/2602/18/25 History lisinopril 30 mg tablet 30 mg PO DAILY 02/22/25 02/22/25 H istory Allergy/AdvReac Type Severity Reaction Status Date / Time amoxicillin (From Augmentin) Allergy Swelling Verified 02/22/25 13:05 clavulanic acid (From Allergy Swelling Verified 02/22/25 13:05 Augmentin) Penicillins Allergy PT UNSURE Verified 02/22/25 13:05 OF REACTION hydromorphone (From Dilaudid) AdvReac Other Verified 02/22/25 13:05 Family History Father Myocardial infarction Surgical History History of ERCP Hx of cholecystectomy S/P appendectomy Social History household members: none Smoking Status: Former smoker ROS ROS ED Constitutional Constitutional ED: Denies chills or fever(s) Eyes Eyes: Denies blurry vision or change in vision ENT ENT ED: Denies rhinorrhea or sore throat Cardiovascular Cardiovascular: Denies chest pain or palpitations Respiratory/Chest Respiratory/Chest: Denies cough or dyspnea Gastrointestinal Gastrointestinal: Denies nausea or vomiting Genitourinary Genitourinary ED: Denies dysuria or hematuria Musculoskeletal Musculoskeletal: Reports back pain; Denies neck pain Integumentary Denies abscess or rash Neurologic Neurologic: Denies headache(s) or weakness Allergic/Immunologic Allergic/Immunologic ED: Denies mouth swelling or urticaria EXAM Physical Exam Const Vital Signs: 02/22/25 13:05 02/22/25 14:06 02/22/25 14:06 Temperature 98.6 F Temperature Source Oral Pulse Rate 125 H Respiratory Rate 18 94 H Respiratory Effort Respiratory Pattern Blood Pressure 143/95 H Blood Pressure Mean 111 Pulse Ox 98 96 Oxygen Delivery Method Room Air Room Air Room Air 02/22/25 14:06 02/22/25 17:05 02/22/25 18:00 Temperature Temperature Source Pulse Rate 67 75 Respiratory Rate 15 18 Respiratory Effort Normal Non-Labored Respiratory Pattern Normal Blood Pressure 137/92 H 136/100 H Blood Pressure Mean 107 112 Pulse Ox 99 98 Oxygen Delivery Method Room Air Room Air Positive well nourished and well developed General Appearance ED: well developed and NAD HEENT Reports moist mucous membranes Neck supple and no JVD Resp normal respiratory effort and clear to auscultation bilaterally Cardio regular rate and regular rhythm GI non-tender and non-distended Palpation: soft Extremity normal to inspection General Extremety ED: Negative for edema or tenderness General Extremity: Negative for edema Neuro oriented x3, CN's II-XII intact bilaterally and no sensory deficits noted Sensorium / Orientation: alert Motor Exam: strength 5/5 th (more content not included)... Normal [facility] Eosinophil percentageOrdered By: Prince Quintanilla on 02-22-2025 Eosinophils/100 WBC (Bld) 0.2 % Normal 0-5 [facility] Comment on above: Performed By: #### L 500.3400, L501.2450, L100.0100, L500.2500 #### [facility] [address] [place], [place], [id number] Erythrocyte distribution wid th (RBC) [Ratio]Ordered By: Prince Quintanilla on 02-22-2025 Erythrocyte distribution width (RBC) [Entitic vol] 38.5 fL 35.1-43.9 [facility] Erythrocyte distribution wid th ratioOrdered By: Prince Quintanilla on 02-22-2025 Erythrocyte distribution width (RBC) [Ratio] 12.0 % Normal 11.6-14.6 [facility] Comment on above: Performed By: #### L 500.3400, L501.2450, L100.0100, L500.2500 #### [facility] [address] [place], [place], [id number] Estimation of creatinine omdesto aranceOrdered By: Prince Quintanilla on 02-22-2025 Estimated Creatinine Clearance Calc 56.77 ml/min 50-250 [facility] GFR/1.73 sq M.predicted carlos g non-blacks MDRD (S/P/Bld) [Vol rate/Area]Ordered By: Prince Quintanilla on 02-22-2025 Estimated GFR (MDRD) Non-Af Amer 56 Low >60 [facility] Comment on above: mL/min/1.73m2 CKD-EP I Creatinine Equation (2020) Hemoglobin measurementOrdere d By: Prince Quintanilla on 02-22-2025 Hemoglobin (Bld) [Mass/Vol] 15.4 g/dL Normal 13.0-16.5 [facility] Comment on above: Performed By: #### L 500.3400, L501.2450, L100.0100, L500.2500 #### [facility] [address] [place], [place], [id number] Immature granulocytes/100 WB C Auto (Bld)Ordered By: Prince Quintanilla on 02-22-2025 Immature granulocytes/100 WBC (Bld) 0.300 % 0.0-0.9 [facility] Comment on above: IG% - Immature Granu locytes (promyelocytes, myelocytes and metamyelocytes) > 1% indicates that a LEFT SHIFT is Present. L499.0043on 02-22-2025 Trop T High Sen Normal <=22 [facility] Comment on above: Result Comment: Canc elled via OM: Order cancelled - Patient discharged Performed By: #### L 499.0043 #### [facility] [address] [place], [address] Result Comment: PT D ISCHARGED Performed By: #### L 499.0042 #### [facility] [address] [place], [address] L501.4021on 02-22-2025 Trop T High Sen 9 ng/L Normal <=22 [facility] Comment on above: Performed By: #### L 500.3400, L501.2450, L100.0100, L500.2500 #### [facility] [address] [place], [address] Lipase measurementOrdered By : Prince Quintanilla on 02-22-2025 Lipase [Catalytic activity/Vol] 52 U/L Normal 13-75 [facility] Comment on above: Please note:LIPASE r evised reference range effective 23. New Lipase methodology. Expected to produce lower values than the previous assay method. NEW Reference Range: 13 - 75 U/L Result Comment: Werner greer note: LIPASE revised reference range effective 23. New Lipase methodology. Expected to produce lower values than the previous assay method. NEW Reference Range: 13 - 75 U/L Performed By: #### L 500.3400, L501.2450, L100.0100, L500.2500 #### [facility] [address] [place], [address] Liver Profileon 02-22-2025 ALK PHOS 73 U/L Normal 40-129 [facility] Comment on above: Performed By: #### L 500.3400, L501.2450, L100.0100, L500.2500 #### [facility] [address] [place], [address] T PROT 7.9 g/dL Normal 5.9-8.4 [facility] Comment on above: Performed By: #### L 500.3400, L501.2450, L100.0100, L500.2500 #### [facility] [address] [place], [address] Liver ProfileOrdered By: Regina Quintanilla on 02-22-2025 AST [Catalytic activity/Vol] 25 U/L Normal <=37 [facility] Comment on above: Performed By: #### L 500.3400, L501.2450, L100.0100, L500.2500 #### [facility] [address] [place], [address] Lymphocytes Auto (Unsp spec) [#/Vol]Ordered By: Prince Quintanilla on 02-22-2025 Lymphocytes (Bld) [#/Vol] 1.15 10*3/uL 0.83-4.51 [facility] MCV (mean corpuscular volume ) determinationOrdered By: Prince Quintanilla on 02-22-2025 MCV (RBC) [Entitic vol] 86.9 fL Normal 80-94 [facility] Comment on above: Performed By: #### L 500.3400, L501.2450, L100.0100, L500.2500 #### [facility] [address] [place], [place], [address] Mean corpuscular hemoglobin (MCH) determinationOrdered By: Prince Quintanilla on 02-22-2025 MCH (RBC) [Entitic mass] 30.1 pg Normal 27.0-32.0 [facility] Comment on above: Performed By: #### L 500.3400, L501.2450, L100.0100, L500.2500 #### [facility] [address] [place], [place], [address] Mean corpuscular hemoglobin concentration (MCHC) determinationOrdered By: Prince Quintanilla on 02-22-2025 MCHC (RBC) [Mass/Vol] 34.6 g/dL Normal 32-36 [facility] Comment on above: Performed By: #### L 500.3400, L501.2450, L100.0100, L500.2500 #### [facility] [address] [place], [place], [id number] (054) Mean platelet volume determi nationOrdered By: Prince Quintanilla on 02-22-2025 Platelet mean volume (Bld) [Entitic vol] 10.3 fL Normal 6.2-12.0 [facility] Comment on above: Performed By: #### L 500.3400, L501.2450, L100.0100, L500.2500 #### [facility] [address] [place], [address] Monocyte percentageOrdered B y: Prince Quintanilla on 02-22-2025 Monocytes/100 WBC (Bld) 4.6 % Normal 0-10 [facility] Comment on above: Performed By: #### L 500.3400, L501.2450, L100.0100, L500.2500 #### [facility] [address] [place], [address] Neutrophil percentageOrdered By: Prince Quintanilla on 02-22-2025 Neutrophils/100 WBC (Bld) 83.5 % High 47-70 [facility] Comment on above: Performed By: #### L 500.3400, L501.2450, L100.0100, L500.2500 #### [facility] [address] [place], [address] Nucleated red blood cell per centageOrdered By: Prince Quintanilla on 02-22-2025 Nucleated RBC/100 WBC (Bld) [Ratio] 0 % 0-5 [facility] Platelet countOrdered By: Chidi Quintanilla on 02-22-2025 Platelets (Bld) [#/Vol] 198 10*3/uL Normal 150-450 [facility] Comment on above: Performed By: #### L 500.3400, L501.2450, L100.0100, L500.2500 #### [facility] [address] [place], [address] Potassium measurement (mass/ volume)Ordered By: Prince Quintanilla on 02-22-2025 Potassium [Moles/Vol] 4.2 mmol/L Normal 3.3-5.1 [facility] Comment on above: Performed By: #### L 500.3400, L501.2450, L100.0100, L500.2500 #### [facility] [address] [place], [address] Serum creatinine measurement (mass/volume)Ordered By: Prince Quintanilla on 02-22-2025 Creatinine [Mass/Vol] 1.40 mg/dL High 0.70-1.20 [facility] Comment on above: Performed By: #### L 500.3400, L501.2450, L100.0100, L500.2500 #### [facility] [address] [place], [address] Serum globulin measurementOr dered By: Prince Quintanilla on 02-22-2025 Globulin (S) [Mass/Vol] 3.1 g/dL Normal 2.2-4.2 [facility] Comment on above: Performed By: #### L 500.3400, L501.2450, L100.0100, L500.2500 #### [facility] [address] [place], [address] Serum glucose measurement (m ass/volume)Ordered By: Prince Quintanilla on 02-22-2025 Glucose [Mass/Vol] 102 mg/dL High 70-99 [facility] Comment on above: Performed By: #### L 500.3400, L501.2450, L100.0100, L500.2500 #### [facility] [address] [facility] [place], [address] Serum or plasma alanine blue otransferase (ALT) measurementOrdered By: Prince Quintanilla on 02-22-2025 ALT [Catalytic activity/Vol] 25 U/L Normal <=46 [facility] Comment on above: Performed By: #### L 500.3400, L501.2450, L100.0100, L500.2500 #### [facility] [address] [place], [address] Serum or plasma albumin kavitha urement (mass/volume)Ordered By: Prince Quintanilla on 02-22-2025 Albumin [Mass/Vol] 4.8 g/dL Normal 3.4-4.8 [facility] Comment on above: Performed By: #### L 500.3400, L501.2450, L100.0100, L500.2500 #### [facility] [address] [place], [address] Serum or plasma alkaline rudi sphatase measurementOrdered By: Prince Quintanilla on 02-22-2025 ALP [Catalytic activity/Vol] 73 U/L 40-129 [facility] Serum or plasma calcium kavitha urement (mass/volume)Ordered By: Prince Quintanilla on 02-22-2025 Calcium [Mass/Vol] 9.7 mg/dL Normal 7.6-11.0 [facility] Comment on above: Performed By: #### L 500.3400, L501.2450, L100.0100, L500.2500 #### [facility] [address] [place], [address] Serum or plasma urea nitroge n measurement (mass/volume)Ordered By: Prince Quintanilla on 02-22-2025 Urea nitrogen [Mass/Vol] 22 mg/dL High 4-19 [facility] Comment on above: Performed By: #### L 500.3400, L501.2450, L100.0100, L500.2500 #### [facility] [address] [place], [address] Sodium levelOrdered By: Prince Quintanilla on 02-22-2025 Sodium [Moles/Vol] 139 mmol/L Normal 133-145 [facility] Comment on above: Performed By: #### L 500.3400, L501.2450, L100.0100, L500.2500 #### [facility] [address] [place], [address] Total proteinOrdered By: Regina Quintanilla on 02-22-2025 Protein [Mass/Vol] 7.9 g/dL 5.9-8.4 [facility] Troponin T.cardiac High sens itivity method [Mass/Vol]Ordered By: Prince Quintanilla on 02-22-2025 Troponin T High Sensitivity 9 ng/L <22 [facility] White blood cell (WBC) count Ordered By: Prince Quintanilla on 02-22-2025 WBC (Bld) [#/Vol] 10.3 10*3/uL Normal 4.4-11.0 [facility] Comment on above: Performed By: #### L 500.3400, L501.2450, L100.0100, L500.2500 #### [facility] [address] [place], [address] CNOVon 02-07-2025 CNOV Office Visit ([facility] ) -- CHLOE CHENEY ([id number]) 1960 M Date Time Provider Department 02/07/25 10:15 AM CARMELA PIMENTEL [facility] During your visit today, we recorded the following information about you: Temperature Pulse Respiration Blood pressure 97.3 degrees 67/minute 16/minute 128/82 Weight 79.6 kg Carmela Pimentel PA-C 02/07/2025 10:46 AM Signed This note was created using [employer]. Subjective Chloe Cheney is a 64 year old male. Patient is a 64-year-old male who complains of ongoing redness and swelling to his bilateral eyelids that has been present for the past approximately 2 weeks. Patient was seen and evaluated at another urgent care facility on 28 January 2025 at which time he was prescribed erythromycin 0.5% ophthalmic ointment. Patient states that he has been applying the ophthalmic ointment as directed and has noted no improvement in his symptoms. Patient was also diagnosed with bilateral styes to both of his eyes at that time. Patient reports increased redness and irritation to his eyes but denies ear pain. Patient does not wear contact lenses and states that his vision is intact and unchanged. Eye Problem Review of Systems Eyes: Positive for redness and itching. Negative for photophobia, pain, discharge and visual disturbance. Redness and Swelling to Eyelids All other systems reviewed and are negative. Objective BP 128/82 Pulse 67 Temp 36.3 ?C (97.3 ?F) (Tympanic) Resp 16 Wt 79.6 kg (175 lb 7.8 oz) SpO2 98% Physical Exam Vitals and nursing note reviewed. Constitutional: Appearance: Normal appearance. He is normal weight. HENT: Head: Normocephalic and atraumatic. Right Ear: External ear normal. Left Ear: External ear normal. Nose: Nose normal. Mouth/Throat: Mouth: Mucous membranes are moist. Pharynx: Oropharynx is clear. Eyes: General: Right eye: No discharge. Left eye: No discharge. Extraocular Movements: Extraocular movements intact. Pupils: Pupils are equal, round, and reactive to light. Comments: Injection is noted to the bilateral conjunctivae. No discharge or matting is noted to the bilateral eyes. There is erythema and edema noted to the bilateral eyelids. Patient also appears to have multiple pustules to the margins of the bilateral inferior eyelids. Pupils are equal, round and reactive to light and accommodation and patient demonstrates full extraocular range of motion bilaterally. Bilateral periorbital skin is clear without erythema or edema. Cardiovascular: Rate and Rhythm: Normal rate. Pulses: Normal pulses. Pulmonary: Effort: Pulmonary effort is normal. Breath sounds: Normal breath sounds. Musculoskeletal: Cervical back: Normal range of motion and neck supple. Skin: General: Skin is warm and dry. Capillary Refill: Capillary refill takes less than 2 seconds. Neurological: General: No focal deficit present. Mental Status: He is alert and oriented to person, place, and time. Psychiatric: Mood and Affect: Mood normal. Behavior: Behavior normal. Thought Content: Thought content normal. Judgment: Judgment normal. Assessment and Plan Physical exam findings as noted above. Patient was provided with a prescription for doxycycline 100 mg and advised to schedule an appointment with his contract forester/ophthalmologis t for more detailed evaluation and management. Patient verbalizes excellent understanding and states that he will schedule an appointment as advised. CLINICAL IMPRESSION: Blepharitis Bilateral Eyes; Hordeolum Externum Bilateral Eyes ASSESSMENT/PLAN: 1. Blepharitis of upper and lower eyelids of both eyes, unspecified type - ICD9: 373.00, ICD10: H01.00A, H01.00B - DOXYCYCLINE HYCLATE 100 MG TABLET MDM Risk of Complications, Morbidity, and/or Mortality Presenting problems: low Diagnostic procedures: low Management options: low Carmela Clutter, PA-C Allergies As of Date: 02/07/2025 Noted Allergy Reaction AMOXICILLIN-POT CLAVULANATE 01/13/2025 10 - Anaphylaxis MOBIC (MELOXICAM) 01/13/2025 2 - Rash STROMECTOL (IVERMECTIN) 01/13/2025 2 - Rash Date Reviewed: 02/07/2025 Reviewed by: Shania Bradley LPN - Fully Assessed Reason for Visit: Eye Problem [43] Cmt: Feels like he has a sty in both eyes x 1.5 weeks Primary Visit Diagnosis:Blepharitis of upper and lower eyelids of both eyes, unspecified type [H01.00A, H01.00B] Other Visit Diagnosis:Hordeolum externum, unspecified laterality [H00.019] Order(s):doxycycline (VIBRA-TABS) 100 mg tabletTake 1 tablet by mouth two times a day for 10 days.Disp: 20 tabletRfl: 0 Prescriptions as of 02/07/2025 - doxycycline (VIBRA-TABS) 100 mg tablet Take 1 tablet by mouth two times a day for 10 days. - CREON 36,000-114,000- 180,000 unit delayed release capsule TAKE 2 CAPSULES BY MOUTH 3 TIMES DAILY WITH MEALS FOR 90 DAYS - traZODone (DESYREL) 50 mg (more content not included)... Normal [facility] CNOVon 01-13-2025 CNOV Office Visit ([facility] ) -- CHLOE CHENEY ([id number]) 1960 M Date Time Provider Department 01/13/25 11:15 AM HARINI MCGILL [facility] During your visit today, we recorded the following information about you: Pulse Respiration Blood pressure Weight 92/minute 16/minute 120/90 79 kg Harini Mcgill APRN.RETIREMENT SALES CONSULTANT 01/13/2025 11:39 AM Signed [facility] Subjective Chloe Cheney is a 64 year old male. HPI Chloe Cheney is a 64 year old male who presents today for CC of right eye irritation. This started few days ago/getting worse. Has tried nothing for relief. Symptoms are worsened by nothing. 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 .Patient presents with: Eye Complaint No past medical history on file. No past surgical history on file. ALLERGIES Amoxicillin-Pot Clavulanate, Mobic [Meloxicam], and Stromectol [Ivermectin] MEDICATIONS traZODone (DESYREL) 50 mg tablet Take 50 mg by mouth daily at bedtime. hydrOXYzine HCl (ATARAX) 10 mg tablet TAKE 1 TABLET BY MOUTH THREE TIMES DAILY NEEDED FOR ANXIETY - CAN TAKE 2 (TWO) TABLETS IF NEEDED CREON 36,000-114,000- 180,000 unit delayed release capsule TAKE 2 CAPSULES BY MOUTH 3 TIMES DAILY WITH MEALS FOR 90 DAYS lisinopril (ZESTRIL) 30 mg tablet Take 30 mg by mouth once daily. No family history on file. Social History Tobacco Use Smoking status: Every Day Smokeless tobacco: Never Patient presents with: Eye Complaint HPI Review of Systems Objective BP 120/90 Pulse 92 Resp 16 Wt 79 kg (174 lb 2.6 oz) Physical Exam Constitutional: General: He is not in acute distress. Appearance: He is not toxic-appearing or diaphoretic. HENT: Head: Normocephalic and atraumatic. Eyes: Pulmonary: Effort: Pulmonary effort is normal. No accessory muscle usage or respiratory distress. Neurological: Mental Status: He is alert and oriented to person, place, and time. {ASSESSMENT/PLAN: 1. Foreign body of right eye, initial encounter - ICD9: 930.9, E914, ICD10: T15.91XA Referred to eye dr, appointment made at [facility] today Harini Mcgill APRN.RETIREMENT SALES CONSULTANT Disposition The patient was discharged. Procedures Allergies As of Date: 01/13/2025 Noted Allergy Reaction AMOXICILLIN-POT CLAVULANATE 01/13/2025 10 - Anaphylaxis MOBIC (MELOXICAM) 01/13/2025 2 - Rash STROMECTOL (IVERMECTIN) 01/13/2025 2 - Rash Date Reviewed: 01/13/2025 Reviewed by: Obdulia Strickland MA - Fully Assessed Reason for Visit: Eye Complaint [0400] Primary Visit Diagnosis:Foreign body of right eye, initial encounter [T15.91XA] Prescriptions as of 01/13/2025 - CREON 36,000-114,000- 180,000 unit delayed release capsule TAKE 2 CAPSULES BY MOUTH 3 TIMES DAILY WITH MEALS FOR 90 DAYS - traZODone (DESYREL) 50 mg tablet Take 50 mg by mouth daily at bedtime. - lisinopril (ZESTRIL) 30 mg tablet Take 30 mg by mouth once daily. - hydrOXYzine HCl (ATARAX) 10 mg tablet TAKE 1 TABLET BY MOUTH THREE TIMES DAILY NEEDED FOR ANXIETY - CAN TAKE 2 (TWO) TABLETS IF NEEDED Problem List As Of Date: 01/13/2025 (None) Encounter Status:Closed by HARINI MCGILL on 01/13/25 Normal [facility] Gastroenterology Visit Repor ton 01-10-2025 Gastroenterology Visit Report [facility] [address] [place] [address] OFFICE VISIT Date of Service: 01/10/25 MR#: [id number] Acct: [id number] Name: CHLOE CHENEY Rep #: [id number] : 1960 Provider: Lucio Lane DO Age/Sex: 64/M Location: [facility] [place] Status: Signed Intake Vital Signs 06/01/24 18:42 12/22/24 12:29 Height 5 ft 11 in 5 ft 11 in Intake Visit Reasons: 6 M FU Chief Complaint: f/u Allergies amoxicillin (From Augmentin) Allergy (Verified 12/22/24 12:31) Swelling clavulanic acid (From Augmentin) Allergy (Verified 12/22/24 12:31) Swelling Penicillins Allergy (Verified 12/22/24 12:31) PT UNSURE OF REACTION hydromorphone (From Dilaudid) Adverse Reaction (Verified 12/22/24 12:31) Other Medications ???Medication ???Instructions ???Recorded ???Confirmed ???Type cholecalciferol (vitamin D3) 50 50 mcg PO DAILY 01/01/23 01/10/25 History mcg (2,000 unit) capsule (Vitamin D3) lisinopril 20 mg tablet 30 mg PO DAILY 07/03/23 01/10/25 H istory hydroxyzine HCl 25 mg tablet 25 mg PO TID PRN anxiety 7 days 01/10/25 Rx #21 tabs teozaa-mjqprtwt-yfbguon 2 cap PO TIDCM 90 days #540 caps 0 07/23/24 01/10/25 Rx 36,000-114,000-180,000 unit capsule,delay rel (Creon) [facility] Medical History Wears glasses High cholesterol Non-smoker Hypertension History of echocardiogram Anxiety Hx of pancreatitis Pancreatitis Surgical History History of ERCP Hx of cholecystectomy S/P appendectomy Family History Father Myocardial infarction Social History household members: none Smoking Status: Former smoker HPI HPI Chief Complaint: f/u Details: CHLOE CHENEY, is a 64 M who presents to the office today for follow up. OSH hospitalization ? MRI 2.. mild pancreatic inflammation, acute interstitial pancreatitis with loss of volume at head, dilation of pancreatic duct and CBD, cannot r/p neoplasm. *[facility] hospitalization 2.-12.21.21 for management of acute on chronic pancreatitis with dyspnea and CP. Reports minimum of 20 pancreatitis episodes resulting in pancreatic pseudocyst. Has required EUS guided drainage of pseudocyst, surgery not pursued. Continue previously prescribed Creon. Established with GI Dr. Cole. ? MCRP 2.23.22 mildly dilated CHD and CBD; pancreatic duct dilated in body/tail 6mm; ill-defined 4.7x2.4x4cm pancreatic head mass with associated MPD dilation ? ERCP 12.20.21 single biliary stricture of lower MBD with dilation; biliary sphincterotomy; CBD dilated. Cytology negative for malignancy OV 01.07.22 doing well since discharge. Recommend EUS. EUS 01.24.22 CBD dilation 9mm without stones, sludge or stricture; pancreatic parenchymal abnormalities, pancreatic duct dilation 5mm; inflammatory mass-like region of pancreatic head [id number] with well defined borders. FNA without pathologic changes. OV 03.07.[address] chest/abd/pel 07.04.22 (ED) mild intrahepatic biliary ductal dilation, CBD, pancreatic duct; pancreas diffusely enlarged with prominence of head and uncinate; borderline retroperitoneal lympha denopathy. OV 11.05.22 doing well overall. Continue Creon. ? Colonoscopy 01.17.23 diverticulosis; two sessile TA/hyperplastic polyps OV 04.08.23 Continue Creon. OV 10.06.23 reports he is ???feeling crappy??? has some concern about BP and HR which he is discussing with PCP next week. Also feels the weather is causing him to feel generally worse with the lack of sunshine: reports feeling totally different when it is toña outside. He has also been eating less with smaller meals every 1-2 days because he does not feel as though his food digests. OV 03.05.24 pt reports that he is having no Gi symptoms of concern. reports a formed/soft bm per day. Pt states that he is managing his symptoms with his diet. Pt continues with creon and omeprazole. OV 07.08.24 pt reports that he is feeling well overall and denies GI symptoms of concern at this time. Reports regular bm. Continues with Creon. Pt reports he stopped taking omeprazole a few months ago and has felt better since stopping it. OV 01.10.25 pt reports that he is feeling well overall and denies GI symptoms of concern at this time. Pt reports back pain from arthritis. ROS Const Constitutional: No fatigue, fever(s) or weight change ENT ENT: No difficulty swallowing Gastro GI: No abdominal pain, belching, bloating, change in bowel habit (more content not included)... Normal [facility] Absolute neutrophil countOrd ered By: ED PROVIDER on 12-22-2024 Neutrophils (Bld) [#/Vol] 8.2 10*3/uL High 2.0-7.7 [facility] BUN/creatinine ratioOrdered By: ED PROVIDER on 12-22-2024 Urea nitrogen/Creatinine [Mass ratio] 16.3 mg/mg 10-20 [facility] Basic Metabolic Profile (BMP )on 12-22-2024 Anion gap [Moles/Vol] 16 mmol/L High 5-15 [facility] Comment on above: Performed By: #### L 500.2500, L100.0100 #### [facility] [address] [place], [address] BUN/CRE 16.3 RATIO Normal - [facility] Comment on above: Performed By: #### L 500.2500, L100.0100 #### [facility] [address] [place], [address] Calcium [Mass/Vol] 9.7 mg/dL Normal 7.6-11.0 [facility] Comment on above: Performed By: #### L 500.2500, L100.0100 #### [facility] [address] [place], [address] Chloride [Moles/Vol] 100 mmol/L Normal 96-108 [facility] Comment on above: Performed By: #### L 500.2500, L100.0100 #### [facility] [address] [place], [address] CO2 [Moles/Vol] 20.4 mmol/L Low 22.0-29.0 [facility] Comment on above: Performed By: #### L 500.2500, L100.0100 #### [facility] [address] [place], [address] Creatinine [Mass/Vol] 1.3 mg/dL Normal 0.8-1.3 [facility] Comment on above: Performed By: #### L 500.2500, L100.0100 #### [facility] [address] [place], [address] GFR/1.73 sq M.predicted among non-blacks MDRD (S/P/Bld) [Vol rate/Area] 61 mL/min/{1.73_m2} Normal >60 [facility] Comment on above: Result Comment: mL/m in/1.73m2 CKD-EPI Creatinine Equation (2020) Performed By: #### L 500.2500, L100.0100 #### [facility] [address] [place], [address] Glucose [Mass/Vol] 116 mg/dL High 70-99 [facility] Comment on above: Performed By: #### L 500.2500, L100.0100 #### [facility] [address] [place], [address] Potassium [Moles/Vol] 4.1 mmol/L Normal 3.3-5.1 [facility] Comment on above: Performed By: #### L 500.2500, L100.0100 #### [facility] [address] [place], [address] Sodium [Moles/Vol] 137 mmol/L Normal 133-145 [facility] Comment on above: Performed By: #### L 500.2500, L100.0100 #### [facility] [address] [place], [address] Urea nitrogen [Mass/Vol] 21 mg/dL High 4-19 [facility] Comment on above: Performed By: #### L 500.2500, L100.0100 #### [facility] [address] [place], [address] Basophil percentageOrdered B y: ED PROVIDER on 12-22-2024 Basophils/100 WBC (Bld) 0.6 % 0-1 [facility] CBC W/Diff, Automatedon 02-2 Absolute Lymph 1.58 X10 3/uL Normal 0.83-4.51 [facility] Comment on above: Performed By: #### L 500.2500, L100.0100 #### [facility] [address] [place], [address] Absolute Neut 8.2 X10 3/uL High 2.0-7.7 [facility] Comment on above: Performed By: #### L 500.2500, L100.0100 #### [facility] [address] [place], [address] Basophils/100 WBC (Bld) 0.6 % Normal 0-1 [facility] Comment on above: Performed By: #### L 500.2500, L100.0100 #### [facility] [address] [place], [address] Eosinophils/100 WBC (Bld) 0.3 % Normal 0-5 [facility] Comment on above: Performed By: #### L 500.2500, L100.0100 #### [facility] [address] [place], [address] Erythrocyte distribution width (RBC) [Ratio] 12.6 % Normal 11.6-14.6 [facility] Comment on above: Performed By: #### L 500.2500, L100.0100 #### [facility] [address] [place], [address] Hematocrit (Bld) [Volume fraction] 47.1 % Normal 40-54 [facility] Comment on above: Performed By: #### L 500.2500, L100.0100 #### [facility] [address] [place], [address] Hemoglobin (Bld) [Mass/Vol] 16.2 g/dL Normal 13.0-16.5 [facility] Comment on above: Performed By: #### L 500.2500, L100.0100 #### [facility] [address] [place], [address] IG% 0.400 Normal 0.0-0.9 [facility] Comment on above: Result Comment: IG% - Immature Granulocytes (promyelocytes, myelocytes and metamyelocytes) > 1% indicates that a LEFT SHIFT is Present. Performed By: #### L 500.2500, L100.0100 #### [facility] [address] [place], [address] Lymphocytes/100 WBC (Bld) 15.0 % Low 19-41 [facility] Comment on above: Performed By: #### L 500.2500, L100.0100 #### [facility] [address] [place], [address] MCH (RBC) [Entitic mass] 30.0 pg Normal 27.0-32.0 [facility] Comment on above: Performed By: #### L 500.2500, L100.0100 #### [facility] [address] [place], [address] MCHC (RBC) [Mass/Vol] 34.4 g/dL Normal 32-36 [facility] Comment on above: Performed By: #### L 500.2500, L100.0100 #### [facility] [address] [place], [address] MCV (RBC) [Entitic vol] 87.2 fL Normal 80-94 [facility] Comment on above: Performed By: #### L 500.2500, L100.0100 #### [facility] [address] [place], [address] Monocytes/100 WBC (Bld) 5.9 % Normal 0-10 [facility] Comment on above: Performed By: #### L 500.2500, L100.0100 #### [facility] [address] [place], [address] Neutrophils/100 WBC (Bld) 77.8 % High 47-70 [facility] Comment on above: Performed By: #### L 500.2500, L100.0100 #### [facility] [address] [place], [address] Nucleated RBC (Bld) [#/Vol] 0 10*3/uL Normal 0-5 [facility] Comment on above: Performed By: #### L 500.2500, L100.0100 #### [facility] [address] [place], [address] Platelet mean volume (Bld) [Entitic vol] 11.4 fL Normal 6.2-12.0 [facility] Comment on above: Performed By: #### L 500.2500, L100.0100 #### [facility] [address] [place], [address] Platelets (Bld) [#/Vol] 219 10*3/uL Normal 150-450 [facility] Comment on above: Performed By: #### L 500.2500, L100.0100 #### [facility] [address] [place], [address] RBC (Bld) [#/Vol] 5.40 10*6/uL Normal 4.6-6.2 [facility] Comment on above: Performed By: #### L 500.2500, L100.0100 #### [facility] [address] [place], [address] RDW SD 40.1 fl Normal 35.1-43.9 [facility] Comment on above: Performed By: #### L 500.2500, L100.0100 #### [facility] [address] [place], [address] WBC (Bld) [#/Vol] 10.5 10*3/uL Normal 4.4-11.0 [facility] Comment on above: Performed By: #### L 500.2500, L100.0100 #### [facility] [address] [place], [address] Carbon dioxide measurementOr dered By: ED PROVIDER on 12-22-2024 CO2 [Moles/Vol] 20.4 mmol/L Low 22.0-29.0 [facility] Chest PA and Lateralon 12-22 Chest PA and Lateral [facility] [address] [place] [address] Chest PA and Lateral MR#: [id number] Acct: [id number] Name: CHLOE CHENEY Rep #: [id number] : 1960 M 64 From: Tyrone clark MD PCP: Dr. Bobby Fountain DO Status: [facility] ER Study: Chest PA and Lateral Date of Exam: 12/22/24 Exam# [id number] Ordering Dr: Jc Raza MD PROCEDURE: PA and lateral chest radiographs. REASON FOR EXAM: Shortness of breath. TECHNIQUE: PA and lateral chest radiographs were obtained. COMPARISON: Comparison is made with prior study dated November 20, 2024. FINDINGS: EKG electrodes are seen. Hyperinflation. The lungs are clear. Tortuosity of the thoracic aorta. The bones are unremarkable. RAD/Chest PA and Lateral IMPRESSION: Hyperinflation. The lungs are clear. Stable examination. Reading Location: [id number] CC: Dr. Jc Raza MD; Dr. Bobby Fountain DO Resume Specialist: Signed Normal [facility] Chloride measurementOrdered By: ED PROVIDER on 12-22-2024 Chloride [Moles/Vol] 100 mmol/L 96-108 [facility] Creatinine [Moles/Vol]Ordere d By: ED PROVIDER on 12-22-2024 Creatinine [Mass/Vol] 1.3 mg/dL 0.8-1.3 [facility] Emergency Department Summary on 12-22-2024 Emergency Department Summary [facility] Medical Records Department [address] [place] [address] Emergency Department Summary 12/22/24 MR#: [id number] Acct: [id number] Name: CHLOE CHENEY Rep #: [id number] : 1960 64 From: Jc Raza MD PCP: Dr. Bobby Fountain, DO Status:DEP ER Location: ED HPI History of Present Illness Chief Complaint: Weakness Informant: patient Onset/Context/Timing Onset: Weeks Context: Gradual Onset Timing: Intermittent Current Severity: Gone Maximum Severity: Mild Narrative Narrative: 64-year-old male history of hypertension pancreatitis. States he has episodes that comes in waves where he feels just generally weak. He says a rash that comes over his back. Denies any chest saurav n. No cough. No fever. Denies any dysuria or change in his bowel movements. No weight change. Mild nausea no vomiting nor diarrhea. No melena. Symptoms been going on for some time. It may be related to his anxiety states. Denies any abdominal pain. No chest pain. Prior similar symptoms: Yes Recent Illness/Hospitalization: No PFSH PFSH Medical History Wears glasses High cholesterol Non-smoker Hypertension History of echocardiogram Anxiety Hx of pancreatitis Pancreatitis Home Medications ???Medication ???Instructions ???Recorded ???Last Taken ???Type cholecalciferol (vitamin D3) 50 50 mcg PO DAILY 01/01/23 Unknown H istory mcg (2,000 unit) capsule (Vitamin D3) lisinopril 20 mg tablet 30 mg PO DAILY 07/03/23 Unknown Hi story hydroxyzine HCl 25 mg tablet 25 mg PO TID PRN anxiety 7 days Unknown Rx #21 tabs gpnxuo-hcqjoxtu-[id number] 2 cap PO TIDCM 90 days #540 caps 0 07/23/24 Unknown Rx 36,000-114,000-180,000 unit capsule,delay rel (Creon) Allergy/AdvReac Type Severity Reaction Status Date / Time amoxicillin (From Augmentin) Allergy Swelling Verified 12/22/24 12:31 clavulanic acid (From Allergy Swelling Verified 12/22/24 12:31 Augmentin) Penicillins Allergy PT UNSURE Verified 12/22/24 12:31 OF REACTION hydromorphone (From Dilaudid) AdvReac Other Verified 12/22/24 12:31 Family History Father Myocardial infarction Surgical History History of ERCP Hx of cholecystectomy S/P appendectomy Social History household members: none Smoking Status: Former smoker ROS ROS ED ROS Narrative Generalized weakness. Constitutional Constitutional ED: Denies chills or fever(s) Eyes Eyes: Denies blurry vision ENT ENT ED: Denies ear pain Cardiovascular Cardiovascular: Denies chest pain Respiratory/Chest Respiratory/Chest: Denies cough or dyspnea Gastrointestinal Gastrointestinal: Reports nausea; Denies abdominal pain, constipation, diarrhea, melena or vomiting Genitourinary Genitourinary ED: Denies dysuria or hematuria Musculoskeletal Musculoskeletal: Denies arthralgias or back pain Integumentary Denies abscess or Abrasions Neurologic Neurologic: Denies headache(s) Psychiatric Psychiatric: Reports anxiety Endocrine Endocrinology: Denies cold intolerance Hematologic/Lymphatic Hematologic/Lymphatic: Reports none Allergic/Immunologic Allergic/Immunologic ED: Denies mouth swelling, tongue swelling or urticaria EXAM Physical Exam Narrative Exam Narrative: Very well-appearing 64-year-old male. Vital signs are stable afebrile. Pulse ox 100% on room air no hypoxia. Is entered the room he is sitting upright in bed. No one else is in the room. No distress. H EENT exam unremarkable. Pupils round react light. Moist mucous membranes. Normal speech. No droop. Neck nontender no lymphadenopathy. Lungs clear to auscultation bilaterally. Heart regular rhythm no murmur. Abdomen is soft and nontender no peritoneal signs. No distention. Moving all 4 extremities. Nontender no edema. Normal strength. No drift. Back nontender. Neurologically is awake alert answering questions following commands. Skin no rashes. No petechiae appropriate. Repeat his temperature was 98 4 orally. Const Vital Signs: 12/22/24 12:29 12/22/24 14:24 12/22/24 14:24 Temperature 97.9 F Temperature Source Temporal Pulse Rate 86 Respiratory Rate 16 17 Respiratory Effort Respiratory Pattern Blood Pressure 127/97 H Blood Pressure Mean 107 Pulse Ox 100 100 Oxygen Delivery Method Room Air Room Air Room Air 12/22/24 14:24 12/22/24 14:37 12/22/24 16:00 Temperature Temperature Source Pulse Rate 73 80 Respiratory Rate 14 16 Respiratory Effort Short of Breath Respiratory Pattern Normal Blood Pressure 128/88 H 129/94 H Blood Pressure Mean 101 10 (more content not included)... Normal [facility] Eosinophil percentageOrdered By: ED PROVIDER on 12-22-2024 Eosinophils/100 WBC (Bld) 0.3 % 0-5 [facility] Erythrocyte distribution wid th (RBC) [Ratio]Ordered By: ED PROVIDER on 12-22-2024 Erythrocyte distribution width (RBC) [Entitic vol] 40.1 fL 35.1-43.9 [facility] Erythrocyte distribution wid th ratioOrdered By: ED PROVIDER on 12-22-2024 Erythrocyte distribution width (RBC) [Ratio] 12.6 % 11.6-14.6 [facility] GFR/1.73 sq M.predicted carlos g non-blacks MDRD (S/P/Bld) [Vol rate/Area]Ordered By: ED PROVIDER on 12-22-2024 Estimated GFR (MDRD) Non-Af Amer 61 >60 [facility] Comment on above: mL/min/1.73m2 CKD-EP I Creatinine Equation (2020) Hematocrit Auto (Bld) [Volum e fraction]Ordered By: ED PROVIDER on 12-22-2024 Hematocrit (Bld) [Volume fraction] 47.1 % 40-54 [facility] Hemoglobin measurementOrdere d By: ED PROVIDER on 12-22-2024 Hemoglobin (Bld) [Mass/Vol] 16.2 g/dL 13.0-16.5 [facility] Immature granulocytes/100 WB C Auto (Bld)Ordered By: ED PROVIDER on 12-22-2024 Immature granulocytes/100 WBC (Bld) 0.400 % 0.0-0.9 [facility] Comment on above: IG% - Immature Granu locytes (promyelocytes, myelocytes and metamyelocytes) > 1% indicates that a LEFT SHIFT is Present. Lipaseon 12-22-2024 Lipase [Catalytic activity/Vol] 61 U/L Normal 13-75 [facility] Comment on above: Result Comment: Werner greer note: LIPASE revised reference range effective 23. New Lipase methodology. Expected to produce lower values than the previous assay method. NEW Reference Range: 13 - 75 U/L Performed By: #### L 500.3400, L501.2450, L100.0100, L500.2500 #### [facility] [address] [place], [address] Lipase measurementOrdered By : Jc Raza on 12-22-2024 Lipase [Catalytic activity/Vol] 61 U/L 13-75 [facility] Comment on above: Please note:LIPASE r evised reference range effective 23. New Lipase methodology. Expected to produce lower values than the previous assay method. NEW Reference Range: 13 - 75 U/L Lymphocytes Auto (Unsp spec) [#/Vol]Ordered By: ED PROVIDER on 12-22-2024 Lymphocytes (Bld) [#/Vol] 1.58 10*3/uL 0.83-4.51 [facility] Lymphocytes/100 WBC Auto (Un sp spec)Ordered By: ED PROVIDER on 12-22-2024 Lymphocytes/100 WBC (Bld) 15.0 % Low 19-41 [facility] MCV (mean corpuscular volume ) determinationOrdered By: ED PROVIDER on 12-22-2024 MCV (RBC) [Entitic vol] 87.2 fL 80-94 [facility] Mean corpuscular hemoglobin (MCH) determinationOrdered By: ED PROVIDER on 12-22-2024 MCH (RBC) [Entitic mass] 30.0 pg 27.0-32.0 [facility] Mean corpuscular hemoglobin concentration (MCHC) determinationOrdered By: ED PROVIDER on 12-22-2024 MCHC (RBC) [Mass/Vol] 34.4 g/dL 32-36 [facility] Mean platelet volume determi nationOrdered By: ED PROVIDER on 12-22-2024 Platelet mean volume (Bld) [Entitic vol] 11.4 fL 6.2-12.0 [facility] Monocyte percentageOrdered B y: ED PROVIDER on 12-22-2024 Monocytes/100 WBC (Bld) 5.9 % 0-10 [facility] Neutrophil percentageOrdered By: ED PROVIDER on 12-22-2024 Neutrophils/100 WBC (Bld) 77.8 % High 47-70 [facility] Nucleated red blood cell per centageOrdered By: ED PROVIDER on 12-22-2024 Nucleated RBC/100 WBC (Bld) [Ratio] 0 % 0-5 [facility] Platelet countOrdered By: ED PROVIDER on 12-22-2024 Platelets (Bld) [#/Vol] 219 10*3/uL 150-450 [facility] RBC Auto (Bld) [#/Vol]Ordere d By: ED PROVIDER on 12-22-2024 RBC (Bld) [#/Vol] 5.40 10*6/uL 4.6-6.2 [facility] Serum glucose measurement (m ass/volume)Ordered By: ED PROVIDER on 12-22-2024 Glucose [Mass/Vol] 116 mg/dL High 70-99 [facility] Serum or plasma anion gap de termination (moles/volume)Ordered By: ED PROVIDER on 12-22-2024 Anion gap [Moles/Vol] 16 mmol/L High 5-15 [facility] Serum or plasma calcium kavitha urement (mass/volume)Ordered By: ED PROVIDER on 12-22-2024 Calcium [Mass/Vol] 9.7 mg/dL 7.6-11.0 [facility] Serum or plasma potassium me asurementOrdered By: ED PROVIDER on 12-22-2024 Potassium [Moles/Vol] 4.1 mmol/L 3.3-5.1 [facility] Serum or plasma sodium measu rement (moles/volume)Ordered By: ED PROVIDER on 12-22-2024 Sodium [Moles/Vol] 137 mmol/L 133-145 [facility] Serum or plasma urea nitroge n measurement (mass/volume)Ordered By: ED PROVIDER on 12-22-2024 Urea nitrogen [Mass/Vol] 21 mg/dL High 4-19 [facility] White blood cell (WBC) count Ordered By: ED PROVIDER on 12-22-2024 WBC (Bld) [#/Vol] 10.5 10*3/uL 4.4-11.0 [facility] LIPIDon 11-26-2024 Cholesterol [Mass/Vol] 180 mg/dL Normal 0-200 [facility] Comment on above: Result Comment: Chol esterol Reference Interval: Less than 200 Desirable 200-239 Borderline high risk 240 and above High risk Performed By: #### 4 [id number], LIPID #### [address] [place], [place] [address] Cholesterol in HDL [Mass/Vol] 48 mg/dL Normal 40-60 [facility] Comment on above: Performed By: #### 4 [id number], LIPID #### [address] [place], [place] [address] Cholesterol in LDL [Mass/Vol] 110 mg/dL Normal 0-130 [facility] Comment on above: Performed By: #### 4 [id number], LIPID #### [address] [place], [place] [address] Triglyceride [Mass/Vol] 112 mg/dL Normal 0-150 [facility] Comment on above: Result Comment: Trig lyceride Reference Interval: Less than 150 Normal 150-199 Borderline high risk 200-499 High risk 500 or higher Very high risk Performed By: #### 4 [id number], LIPID #### [address] [place], [place] [address] PSAFon 11-26-2024 % Free PSA 24.1 % Normal [facility] Comment on above: Result Comment: The table below lists the probability of prostate cancer for men with non-suspicious GITA results and total PSA between 4 and 10 ng/mL, by patient age (Naif et al, [place] 1998, 279:1542). % Free PSA 50-64 yr 65-75 yr 0.00-10.00% 56% 55% 10.01-15.00% 24% 35% 15.01-20.00% 17% 23% 20.01-25.00% 10% 20% >25.00% 5% 9% Please note: Naif et al did not make specific recommendations regarding the use of percent free PSA for any other population of men. Performed At: [facility] [address] [place] [id number] Diana Ortiz PhD Ph:[phone] Performed By: #### 4 06102, LIPID #### [facility] [place] [address] [place], [place] [address] PSA Free 1.52 ng/mL Normal N/A [facility] Comment on above: Result Comment: Ian CONRAD methodology. Performed By: #### 4 [id number], LIPID #### [facility] [address] [place], [place] [address] 12 Lead EKGon 11-20-2024 12 Lead EKG [facility] Cardi[facility] Services [address] [place] [address] 12 Lead EKG 11/20/24 1657 MR#: [id number] Acct: [id number] Name: CHLOE CHENEY Rep #: [id number] : 1960 63 From: Lukas Sánchez MD Attending Dr: Status: DEP ER Ordering Dr: Lavonne Vega Date: 11/20/24 Location: ED Sex: M C Admitted: Test Reason : SOB Blood Pressure : */* mmHG Vent. Rate : 84 BPM Atrial Rate : 84 BPM P-R Int : 144 ms QRS Dur : 100 ms QT Int : 392 ms P-R-T Axes : 64 9 59 degrees QTcB Int : 463 ms Normal sinus rhythm Low voltage QRS Cannot rule out Inferior infarct , age undetermined Abnormal ECG Confirmed by CARTER VILLAVICENCIO, CARLOS ([id number]), editor greeting card CHRIS LOMAS ([id number]) on 11/23/2024 6:11:38 AM Referred By: TA Confirmed By: CARLOS SÁNCHEZ MD 11/23/24 0611 Date Lukas Sánchez MD CC: Dr. Prince Quintanilla DO; Dr. Bobby Fountain DO; GREER Lo Signed Normal [facility] Absolute neutrophil countOrd ered By: Lavonne Vega on 11-20-2024 Neutrophils (Bld) [#/Vol] 7.3 10*3/uL 2.0-7.7 [facility] Albumin to globulin ratioOrd ered By: Lavonne Vega on 11-20-2024 Albumin/Globulin [Mass ratio] 1.1 {ratio} 0.9-2.4 [facility] Basophil percentageOrdered B y: Lavonne Vega on 11-20-2024 Basophils/100 WBC (Bld) 0.6 % 0-1 [facility] Bilirubin, totalOrdered By: Lavonne Vega on 11-20-2024 Bilirubin [Mass/Vol] 0.80 mg/dL 0.20-1.00 [facility] Comment on above: Slight Lipemia, Resu lt may be falsely increased. For patients on eltrombopag therapy, use of Dimension [place] TBIL is not recommended. Blood urea nitrogen (BUN)/cr eatinine ratioOrdered By: Lavonne Piercevictor mela on 11-20-2024 Urea nitrogen/Creatinine [Mass ratio] 19.3 mg/mg 10-20 [facility] CBC W/Diff, Automatedon 10-28 Absolute Lymph 2.46 X10 3/uL Normal 0.83-4.51 [facility] Comment on above: Performed By: #### L 100.0100, L501.4020, L500.4050 #### [facility] [address] [place], [address] Absolute Neut 7.3 X10 3/uL Normal 2.0-7.7 [facility] Comment on above: Performed By: #### L 100.0100, L501.4020, L500.4050 #### [facility] [address] [place], [address] Basophils/100 WBC (Bld) 0.6 % Normal 0-1 [facility] Comment on above: Performed By: #### L 100.0100, L501.4020, L500.4050 #### [facility] [address] [place], [address] Eosinophils/100 WBC (Bld) 1.1 % Normal 0-5 [facility] Comment on above: Performed By: #### L 100.0100, L501.4020, L500.4050 #### [facility] [address] [place], [address] Erythrocyte distribution width (RBC) [Ratio] 12.6 % Normal 11.6-14.6 [facility] Comment on above: Performed By: #### L 100.0100, L501.4020, L500.4050 #### [facility] [address] [place], [address] Hematocrit (Bld) [Volume fraction] 47.8 % Normal 40-54 [facility] Comment on above: Performed By: #### L 100.0100, L501.4020, L500.4050 #### [facility] [address] [place], [address] Hemoglobin (Bld) [Mass/Vol] 17.0 g/dL High 13.0-16.5 [facility] Comment on above: Performed By: #### L 100.0100, L501.4020, L500.4050 #### [facility] [address] [place], [address] IG% 0.200 Normal 0.0-0.9 [facility] Comment on above: Result Comment: IG% - Immature Granulocytes (promyelocytes, myelocytes and metamyelocytes) > 1% indicates that a LEFT SHIFT is Present. Performed By: #### L 100.0100, L501.4020, L500.4050 #### [facility] [address] [place], [address] Lymphocytes/100 WBC (Bld) 23.0 % Normal 19-41 [facility] Comment on above: Performed By: #### L 100.0100, L501.4020, L500.4050 #### [facility] [address] [place], [address] MCH (RBC) [Entitic mass] 30.4 pg Normal 27.0-32.0 [facility] Comment on above: Performed By: #### L 100.0100, L501.4020, L500.4050 #### [facility] [address] [place], [address] MCHC (RBC) [Mass/Vol] 35.6 g/dL Normal 32-36 [facility] Comment on above: Performed By: #### L 100.0100, L501.4020, L500.4050 #### [facility] [address] [place], [address] MCV (RBC) [Entitic vol] 85.5 fL Normal 80-94 [facility] Comment on above: Performed By: #### L 100.0100, L501.4020, L500.4050 #### [facility] [address] [place], [address] Monocytes/100 WBC (Bld) 6.8 % Normal 0-10 [facility] Comment on above: Performed By: #### L 100.0100, L501.4020, L500.4050 #### [facility] [address] [place], [address] Neutrophils/100 WBC (Bld) 68.3 % Normal 47-70 [facility] Comment on above: Performed By: #### L 100.0100, L501.4020, L500.4050 #### [facility] [address] [place], [address] Nucleated RBC (Bld) [#/Vol] 0 10*3/uL Normal 0-5 [facility] Comment on above: Performed By: #### L 100.0100, L501.4020, L500.4050 #### [facility] [address] [place], [address] Platelet mean volume (Bld) [Entitic vol] 10.8 fL Normal 6.2-12.0 [facility] Comment on above: Performed By: #### L 100.0100, L501.4020, L500.4050 #### [facility] [address] [place], [address] Platelets (Bld) [#/Vol] 220 10*3/uL Normal 150-450 [facility] Comment on above: Performed By: #### L 100.0100, L501.4020, L500.4050 #### [facility] [address] [place], [address] RBC (Bld) [#/Vol] 5.59 10*6/uL Normal 4.6-6.2 [facility] Comment on above: Performed By: #### L 100.0100, L501.4020, L500.4050 #### [facility] [address] [place], [address] RDW SD 39.3 fl Normal 35.1-43.9 [facility] Comment on above: Performed By: #### L 100.0100, L501.4020, L500.4050 #### [facility] [address] [place], [address] WBC (Bld) [#/Vol] 10.7 10*3/uL Normal 4.4-11.0 [facility] Comment on above: Performed By: #### L 100.0100, L501.4020, L500.4050 #### [facility] [address] [place], [address] Carbon dioxide measurementOr dered By: Lavonne Vega on 11-20-2024 CO2 [Moles/Vol] 27.0 mmol/L 21.0-32.0 [facility] Comment on above: Slight Lipemia, Resu lt may be falsely increased. Chest PA and Lateralon 11-20 Chest PA and Lateral [facility] Imaging Services [address] [place] [address] Chest PA and Lateral MR#: [id number] Acct: [id number] Name: CHLOE CHENEY Rep #: [id number] : 1960 M 63 From: Aime ramirez MD PCP: Dr. Bobby Fountain DO Status: REG ER Study: Chest PA and Lateral Date of Exam: 11/20/24 Exam# [id number] Ordering Dr: Lavonne Vega [id number] INDICATION: dyspnea EXAMINATION/TECHNIQUE: X-RAY - XR Chest 2 Views COMPARISON: 07/15/2024. FINDINGS: The lungs are clear. The cardiomediastinal silhouette is unremarkable. No pleural effusion or pneumothorax. No acute osseous abnormalities. RAD/Chest PA and Lateral IMPRESSION: No acute radiographic abnormalities. Electronically Signed: Aime Baires MD at 17:57 EST , CC: Dr. Bobby Fountain DO; GREER Lo Resume Specialist: Signed Normal [facility] Chloride measurementOrdered By: Lavonne Vega on 11-20-2024 Chloride [Moles/Vol] 101 mmol/L 98-107 [facility] Comprehensive Metabolic Prof ilon 11-20-2024 Albumin [Mass/Vol] 4.4 g/dL Normal 3.2-5.0 [facility] Comment on above: Order Comment: 'TROP ' Serial specimen #1, #2 or #3: 1 Performed By: #### L 500.3400, L501.2450, L100.0100, L500.2500 #### [facility] [address] [place], [place], [address] Albumin/Globulin [Mass ratio] 1.1 {ratio} Normal 0.9-2.4 [facility] Comment on above: Order Comment: 'TROP ' Serial specimen #1, #2 or #3: 1 Performed By: #### L 500.3400, L501.2450, L100.0100, L500.2500 #### [facility] [address] [place], [address] ALK P 98 U/L Normal 45-117 [facility] Comment on above: Order Comment: 'TROP ' Serial specimen #1, #2 or #3: 1 Performed By: #### L 500.3400, L501.2450, L100.0100, L500.2500 #### [facility] [address] [place], [address] ALT [Catalytic activity/Vol] 40 U/L Normal 16-61 [facility] Comment on above: Order Comment: 'TROP ' Serial specimen #1, #2 or #3: 1 Result Comment: Slig ht Lipemia, Result may be falsely increased. Performed By: #### L 500.3400, L501.2450, L100.0100, L500.2500 #### [facility] [address] [place], [address] AST [Catalytic activity/Vol] 22 U/L Normal 15-37 [facility] Comment on above: Order Comment: 'TROP ' Serial specimen #1, #2 or #3: 1 Result Comment: Slig ht Lipemia, Result may be falsely increased. Performed By: #### L 500.3400, L501.2450, L100.0100, L500.2500 #### [facility] [address] [place], [address] Bilirubin [Mass/Vol] 0.80 mg/dL Normal 0.20-1.00 [facility] Comment on above: Order Comment: 'TROP ' Serial specimen #1, #2 or #3: 1 Result Comment: Slig ht Lipemia, Result may be falsely increased. For patients on eltrombopag therapy, use of Dimension [place] TBIL is not recommended. Performed By: #### L 500.3400, L501.2450, L100.0100, L500.2500 #### [facility] [address] [place], [address] BUN/CRE 19.3 RATIO Normal 10-20 [facility] Comment on above: Order Comment: 'TROP ' Serial specimen #1, #2 or #3: 1 Performed By: #### L 500.3400, L501.2450, L100.0100, L500.2500 #### [facility] [address] [place], [address] CA,Total 9.7 mg/dL Normal 8.5-10.1 [facility] Comment on above: Order Comment: 'TROP ' Serial specimen #1, #2 or #3: 1 Result Comment: Slig ht Lipemia, Result may be falsely increased. Performed By: #### L 500.3400, L501.2450, L100.0100, L500.2500 #### [facility] [address] [place], [address] Chloride [Moles/Vol] 101 mmol/L Normal 98-107 [facility] Comment on above: Order Comment: 'TROP ' Serial specimen #1, #2 or #3: 1 Performed By: #### L 500.3400, L501.2450, L100.0100, L500.2500 #### [facility] [address] [place], [address] CO2 [Moles/Vol] 27.0 mmol/L Normal 21.0-32.0 [facility] Comment on above: Order Comment: 'TROP ' Serial specimen #1, #2 or #3: 1 Result Comment: Slig ht Lipemia, Result may be falsely increased. Performed By: #### L 500.3400, L501.2450, L100.0100, L500.2500 #### [facility] [address] [place], [address] Creatinine [Mass/Vol] 1.40 mg/dL High 0.70-1.30 [facility] Comment on above: Order Comment: 'TROP ' Serial specimen #1, #2 or #3: 1 Result Comment: Slig ht Lipemia, Result may be falsely increased. The validity of the calculated GFR GFRAA in patients over 70 years has not been determined. Clinical correlation is essential. Performed By: #### L 500.3400, L501.2450, L100.0100, L500.2500 #### [facility] [address] [place], [address] ECRCL 57.52 ml/min Normal [facility] Comment on above: Order Comment: 'TROP ' Serial specimen #1, #2 or #3: 1 Performed By: #### L 500.3400, L501.2450, L100.0100, L500.2500 #### [facility] [address] [place], [address] EST GFR - AA 66 mL/min Normal >60 [facility] Comment on above: Order Comment: 'TROP ' Serial specimen #1, #2 or #3: 1 Result Comment: Afri can [place] GFR Calc Performed By: #### L 500.3400, L501.2450, L100.0100, L500.2500 #### [facility] [address] [place], [address] GAP 8 Normal 5-15 [facility] Comment on above: Order Comment: 'TROP ' Serial specimen #1, #2 or #3: 1 Performed By: #### L 500.3400, L501.2450, L100.0100, L500.2500 #### [facility] [address] [place], [address] GFR/1.73 sq M.predicted among non-blacks MDRD (S/P/Bld) [Vol rate/Area] 54 mL/min/{1.73_m2} Low >60 [facility] Comment on above: Order Comment: 'TROP ' Serial specimen #1, #2 or #3: 1 Result Comment: Non- GFR Calc Performed By: #### L 500.3400, L501.2450, L100.0100, L500.2500 #### [facility] [address] [place], [address] Globulin (S) [Mass/Vol] 4.0 g/dL Normal 2.2-4.2 [facility] Comment on above: Order Comment: 'TROP ' Serial specimen #1, #2 or #3: 1 Performed By: #### L 500.3400, L501.2450, L100.0100, L500.2500 #### [facility] [address] [place], [address] Glucose [Mass/Vol] 106 mg/dL Normal 74-106 [facility] Comment on above: Order Comment: 'TROP ' Serial specimen #1, #2 or #3: 1 Result Comment: Slig ht Lipemia, Result may be falsely increased. Fasting Glucose result from 100 to 125 mg/dL suggests IMPAIRED HOMEOSTASIS per A.D.A. criteria. Performed By: #### L 500.3400, L501.2450, L100.0100, L500.2500 #### [facility] [address] [place], [address] Potassium [Moles/Vol] 4.0 mmol/L Normal 3.5-5.1 [facility] Comment on above: Order Comment: 'TROP ' Serial specimen #1, #2 or #3: 1 Result Comment: Slig ht Lipemia, Result may be falsely increased. Performed By: #### L 500.3400, L501.2450, L100.0100, L500.2500 #### [facility] [address] [place], [address] Sodium [Moles/Vol] 136 mmol/L Normal 136-145 [facility] Comment on above: Order Comment: 'TROP ' Serial specimen #1, #2 or #3: 1 Performed By: #### L 500.3400, L501.2450, L100.0100, L500.2500 #### [facility] [address] [place], [address] T PROT 8.4 g/dL High 6.4-8.2 [facility] Comment on above: Order Comment: 'TROP ' Serial specimen #1, #2 or #3: 1 Result Comment: Slig ht Lipemia, Result may be falsely increased. Performed By: #### L 500.3400, L501.2450, L100.0100, L500.2500 #### [facility] [address] [place], [address] Urea nitrogen [Mass/Vol] 27 mg/dL High 7-18 [facility] Comment on above: Order Comment: 'TROP ' Serial specimen #1, #2 or #3: 1 Result Comment: Slig ht Lipemia, Result may be falsely increased. Performed By: #### L 500.3400, L501.2450, L100.0100, L500.2500 #### [facility] [address] [place], [address] Emergency Department Summary on 11-20-2024 Emergency Department Summary [facility] Medical Records Department [address] [place] [address] Emergency Department Summary 11/20/24 MR#: [id number] Acct: [id number] Name: CHLOE CHENEY Rep #: [id number] : 1960 63 From: Prince Quintanilla DO PCP: Dr. Bobby Fountain, DO Status:DEP ER Location: ED HPI History of Present Illness Chief Complaint: Shortness of Breath Narrative Narrative: 63-year-old male with past medical history of hypertension, pancreatitis states yesterday he had an episode of dry mouth, generalized weakness and shortness of breath. He states he felt short of breath for about an hour and then weak most of the evening. He checked his blood pressure and it was 150s/90s which concerned him. He felt fine this morning and went to run some errands and states when he got home this afternoon he felt similarly. He did not check his vital signs again but he is concerned his blood pressure is running high and that he could be at risk for heart attack. He has no chest pain. He has no fever or upper respiratory symptoms. He is nauseous without vomiting and has no abdominal pain, diarrhea, melena or hematochezia. [facility] Medical History Wears glasses High cholesterol Non-smoker Hypertension History of echocardiogram Anxiety Hx of pancreatitis Pancreatitis Home Medications ???Medication ???Instructions ???Recorded ???Last Taken ???Type cholecalciferol (vitamin D3) 50 50 mcg PO DAILY 01/01/23 Unknown History mcg (2,000 unit) capsule (Vitamin D3) lisinopril 20 mg tablet 30 mg PO DAILY 07/03/23 Unknown History hydroxyzine HCl 25 mg tablet 25 mg PO TID PRN anxiety 7 days 07/15/24 Unknown Rx #21 tabs wvvvbt-nlzekzeo-fwkswet 2 cap PO TIDCM 90 days #540 caps 07/23/24 Unknown Rx 36,000-114,000-180,000 unit capsule,delay rel (Creon) Allergy/AdvReac Type Severity Reaction Status Date / Time amoxicillin (From Augmentin) Allergy Swelling Verified 11/20/24 16:52 clavulanic acid (From Allergy Swelling Verified 11/20/24 16:52 Augmentin) Penicillins Allergy PT UNSURE Verified 11/20/24 16:52 OF REACTION hydromorphone (From Dilaudid) AdvReac Other Verified 11/20/24 16:52 Family History Father Myocardial infarction Surgical History History of ERCP Hx of cholecystectomy S/P appendectomy Social History (Updated 06/01/24 @ 20:[address] Abhi Sahni MD) household members: none Smoking Status: Former smoker ROS ROS ED ROS Narrative Constitutional: Negative for fever, chills, malaise. Respiratory: Positive for shortness of breath,. Negative for cough, orthopnea. GI: Negative for abdominal pain, nausea, vomiting, diarrhea. EXAM Physical Exam Narrative Exam Narrative: CONST: Patient sitting in no acute distress. EYES: Normal inspection. NECK: Normal inspection. RESP: No respiratory distress, CTAB. CVS: Regular rate and rhythm, no murmur, no gallop. ABD: Soft and nontender, no guarding or rebound, nondistended. SKIN: Color normal, no rash, warm, dry, intact. EXTREMITIES: Normal appearance, no pedal edema. NEURO: Alert and answering questions appropriately. PSYCH: Normal affect. Const Vital Signs: 11/20/24 16:50 11/20/24 17:00 11/20/24 18:59 Temperature 97.4 F L 98.0 F Temperature Source Oral Pulse Rate 98 73 Respiratory Rate 16 18 Respiratory Effort Normal Non-Labored Respiratory Depth Normal Respiratory Pattern Normal Blood Pressure 137/109 H 127/75 H Blood Pressure Mean 118 92 Pulse Ox 100 100 Oxygen Delivery Method Room Air Room Air Physical Exam Const Vital Signs: 11/20/24 16:50 11/20/24 17:00 11/20/24 18:59 Temperature 97.4 F L 98.0 F Temperature Source Oral Pulse Rate 98 73 Respiratory Rate 16 18 Respiratory Effort Normal Non-Labored Respiratory Depth Normal Respiratory Pattern Normal Blood Pressure 137/109 H 127/75 H Blood Pressure Mean 118 92 Pulse Ox 100 100 Oxygen Delivery Method Room Air Room Air MDM MDM MDM Narrative Medical decision making narrative: Patient presents with shortness of breath that started yesterday. He denies chest pain or cough. He complains of occasional lightheadedness and dry mouth. He appears well and nontoxic. His vital signs are stable. He has no respiratory distress and a normal cardiopulmonary exam. CBC unremarkable, creatinine is 1.4 around his baseline. Lipase slightly elevated at 190. He has no abdominal pain or GI symptoms and I suspect it is chronically high from his history of pancreatitis. He is on Creon. EKG is nonischemic and troponin is 4. Viral swab and chest x-ray are negative. His (more content not included)... Normal [facility] Eosinophil percentageOrdered By: Lavonne Vega on 11-20-2024 Eosinophils/100 WBC (Bld) 1.1 % 0-5 [facility] Erythrocyte distribution wid th (RBC) [Ratio]Ordered By: Lavonne Vega on 11-20-2024 Erythrocyte distribution width (RBC) [Entitic vol] 39.3 fL 35.1-43.9 [facility] Erythrocyte distribution wid th ratioOrdered By: Lavonne Vega on 11-20-2024 Erythrocyte distribution width (RBC) [Ratio] 12.6 % 11.6-14.6 [facility] Estimated glomerular filtrat ion rate (GFR) AmericanOrdered By: Lavonne Vega on 11-20-2024 Estimated GFR (MDRD) Amer 66 mL/min >60 [facility] Comment on above: GFR Calc Estimation of creatinine modesto aranceOrdered By: Lavonne Vega on 11-20-2024 Estimated Creatinine Clearance Calc 57.52 ml/min [facility] Glomerular filtration rate ( GFR) estimationOrdered By: Lavonne Vega on 11-20-2024 Estimated GFR (MDRD) Non-Af Amer 54 mL/min Low >60 [facility] Comment on above: Non- GFR Calc Glucose measurementOrdered B y: Lavonne Vega on 11-20-2024 Glucose [Mass/Vol] 106 mg/dL 74-106 [facility] Comment on above: Slight Lipemia, Resu lt may be falsely increased.Fasting Glucose result from 100 to 125 mg/dL suggests IMPAIRED HOMEOSTASIS per A.D.A. criteria. Hematocrit Auto (Bld) [Volum e fraction]Ordered By: Lavonne Vega on 11-20-2024 Hematocrit (Bld) [Volume fraction] 47.8 % 40-54 [facility] Hemoglobin measurementOrdere d By: Lavonne Vega on 11-20-2024 Hemoglobin (Bld) [Mass/Vol] 17.0 g/dL High 13.0-16.5 [facility] Immature granulocytes/100 WB C Auto (Bld)Ordered By: Lavonne Vega on 11-20-2024 Immature granulocytes/100 WBC (Bld) 0.200 % 0.0-0.9 [facility] Comment on above: IG% - Immature Granu locytes (promyelocytes, myelocytes and metamyelocytes) > 1% indicates that a LEFT SHIFT is Present. Influenza virus A and B and SARS-CoV-2 (COVID-19) and Respiratory syncytial virus RNAOrdered By: Lavonne Vega on 11-20-2024 SARS-CoV-2 (COVID-19) RNA HARRY+probe Ql (Unsp spec) [facility] L501.4020on 11-20-2024 TROPONIN-I HS 4 pg/mL Normal 3.0-78.0 [facility] Comment on above: Order Comment: 'TROP ' Serial specimen #1, #2 or #3: 1 Result Comment: Werner greer Note: New Test Units and Gender Specific Reference Ranges. For more information see Policy Stat Procedure [place] High Sensitivity Troponin (TNIH) and attachments. Performed By: #### L 500.3400, L501.2450, L100.0100, L500.2500 #### [facility] [address] [place], [place], [address] Laboratory - Chemistry and C hemistry - challengeOrdered By: Lavonne Vega on 11-20-2024 AST [Catalytic activity/Vol] 22 U/L 15-37 [facility] Comment on above: Slight Lipemia, Resu lt may be falsely increased. Lipaseon 11-20-2024 Lipase [Catalytic activity/Vol] 190 U/L High 13-75 [facility] Comment on above: Result Comment: Werner greer note: LIPASE revised reference range effective 23. New Lipase methodology. Expected to produce lower values than the previous assay method. NEW Reference Range: 13 - 75 U/L Performed By: #### L 501.2450 #### [facility] [address] [place], [place], [address] Lipase measurementOrdered By : Lavonne Vega on 11-20-2024 Lipase [Catalytic activity/Vol] 190 U/L High 13-75 [facility] Comment on above: Please note:LIPASE r evised reference range effective 23. New Lipase methodology. Expected to produce lower values than the previous assay method. NEW Reference Range: 13 - 75 U/L Lymphocytes Auto (Unsp spec) [#/Vol]Ordered By: Laovnne Vega on 11-20-2024 Lymphocytes (Bld) [#/Vol] 2.46 10*3/uL 0.83-4.51 [facility] Lymphocytes/100 WBC Auto (Un sp spec)Ordered By: Lavonne Vega on 11-20-2024 Lymphocytes/100 WBC (Bld) 23.0 % 19-41 [facility] M100.678on 11-20-2024 M100.678 Pending SARS-CoV-2 (COVID 19) Negative INFLUENZA A Negative INFLUENZA B Negative RSV PCR Negative Normal [facility] Comment on above: Performed By: #### L 500.3400, L501.2450, L100.0100, L500.2500 #### [facility] [address] [place], [address] MCV (mean corpuscular volume ) determinationOrdered By: Lavonne Vega on 11-20-2024 MCV (RBC) [Entitic vol] 85.5 fL 80-94 [facility] Mean corpuscular hemoglobin (MCH) determinationOrdered By: Lavonne Vega on 11-20-2024 MCH (RBC) [Entitic mass] 30.4 pg 27.0-32.0 [facility] Mean corpuscular hemoglobin concentration (MCHC) determinationOrdered By: Lavonne Vega on 11-20-2024 MCHC (RBC) [Mass/Vol] 35.6 g/dL 32-36 [facility] Mean platelet volume determi nationOrdered By: Lavonne Vega on 11-20-2024 Platelet mean volume (Bld) [Entitic vol] 10.8 fL 6.2-12.0 [facility] Monocyte percentageOrdered B y: Lavonne Vega on 11-20-2024 Monocytes/100 WBC (Bld) 6.8 % 0-10 [facility] Neutrophil percentageOrdered By: Lavonne Vega on 11-20-2024 Neutrophils/100 WBC (Bld) 68.3 % 47-70 [facility] Nucleated red blood cell per centageOrdered By: Lavonne Vega on 11-20-2024 Nucleated RBC/100 WBC (Bld) [Ratio] 0 % 0-5 [facility] Platelet countOrdered By: Yolande Vega on 11-20-2024 Platelets (Bld) [#/Vol] 220 10*3/uL 150-450 [facility] Potassium measurementOrdered By: Lavonne Vega on 11-20-2024 Potassium [Moles/Vol] 4.0 mmol/L 3.5-5.1 [facility] Comment on above: Slight Lipemia, Resu lt may be falsely increased. RBC Auto (Bld) [#/Vol]Ordere d By: Lavonne Vega on 11-20-2024 RBC (Bld) [#/Vol] 5.59 10*6/uL 4.6-6.2 [facility] Serum anion gap measurementO rdered By: Lavonne Vega on 11-20-2024 Anion gap [Moles/Vol] 8 mmol/L 5-15 [facility] Serum globulin measurementOr dered By: Lavonne Vega on 11-20-2024 Globulin (S) [Mass/Vol] 4.0 g/dL 2.2-4.2 [facility] Serum or plasma alanine blue otransferase (ALT) measurementOrdered By: Lavonne Vega on 11-20-2024 ALT [Catalytic activity/Vol] 40 U/L 16-61 [facility] Comment on above: Slight Lipemia, Resu lt may be falsely increased. Serum or plasma albumin kavitha urement (mass/volume)Ordered By: Lavonne Vega on 11-20-2024 Albumin [Mass/Vol] 4.4 g/dL 3.2-5.0 [facility] Serum or plasma alkaline rudi sphatase measurementOrdered By: Lavonne Vega on 11-20-2024 ALP [Catalytic activity/Vol] 98 U/L 45-117 [facility] Serum or plasma calcium kavitha urement (mass/volume)Ordered By: Lavonne Vega on 11-20-2024 Calcium [Mass/Vol] 9.7 mg/dL 8.5-10.1 [facility] Comment on above: Slight Lipemia, Resu lt may be falsely increased. Serum or plasma creatinine m easurement (mass/volume)Ordered By: Lavonne Vega on 11-20-2024 Creatinine [Mass/Vol] 1.40 mg/dL High 0.70-1.30 [facility] Comment on above: Slight Lipemia, Resu lt may be falsely increased.The validity of the calculated GFR & GFRAA in patients over 70 years has not been determined. Clinical correlation is essential. Serum or plasma urea nitroge n measurement (mass/volume)Ordered By: Lavonne Vega on 11-20-2024 Urea nitrogen [Mass/Vol] 27 mg/dL High 7-18 [facility] Comment on above: Slight Lipemia, Resu lt may be falsely increased. Sodium levelOrdered By: Lavonne Vega on 11-20-2024 Sodium [Moles/Vol] 136 mmol/L 136-145 [facility] Total proteinOrdered By: Kathya Vega on 11-20-2024 Protein [Mass/Vol] 8.4 g/dL High 6.4-8.2 [facility] Comment on above: Slight Lipemia, Resu lt may be falsely increased. Troponin IOrdered By: Lavonne chiu on 11-20-2024 Troponin I High Sensitivity 4 pg/mL 3.0-78.0 [facility] Comment on above: Please Note: New Lakshmi t Units and Gender Specific Reference Ranges. For more information see Policy Stat Procedure [place] High Sensitivity Troponin (TNIH) and attachments. White blood cell (WBC) count Ordered By: Lavonne Vega on 11-20-2024 WBC (Bld) [#/Vol] 10.7 10*3/uL 4.4-11.0 [facility] CT THORAX SCREENING W/O CONT [facility] 10-06-2024 CT THORAX SCREENING W/O CONTRAST ORIGINAL EXAMINATION: LOW DOSE SCREENING CT OF THE CHEST WITHOUT HPFUGAZZ06/6/2024 4:52 pm TECHNIQUE: Low dose lung cancer screening CT of the chest was performed without the administration of intravenous contrast. Multiplanar reformatted images are provided for review. Automated exposure control, iterative reconstruction, and/or weight based adjustment of the mA/kV was utilized to reduce the radiation dose to as low as reasonably achievable. COMPARISON: None. HISTORY: ORDERING SYSTEM PROVIDED HISTORY: Reason for Exam: hx tobacco quit < 15 year, history of 25 pack years FINDINGS: The heart is normal in size. No pericardial effusion. Multi-vessel coronary artery atherosclerotic calcifications. Mild ectasia of the ascending thoracic aorta measuring up to 4.3 cm in maximum diameter. Mild atherosclerotic calcifications within the thoracic aorta. The main pulmonary artery is normal caliber. No lymphadenopathy is visible on this unenhanced exam. The trachea and mainstem bronchi are patent. No suspicious endotracheal or endobronchial nodule. No pulmonary consolidation. Scarring at the lung apices. Minimal emphysematous changes. Triangular shaped nodule in the left upper lobe, 5 mm on average (image 33, series 2); this is most likely an intrapulmonary lymph node. No pneumothorax or pleural effusion. No acute osseous abnormality. No aggressive osseous lesions. Few mild degenerative changes. Remote deformity of the left scapula. Bilateral gynecomastia. Stable mild intrahepatic biliary dilatation within the left hepatic lobe. No acute or suspicious findings within the visualized upper abdomen. The abdomen is not evaluated in detail. IMPRESSION: Left upper lobe 5 mm pulmonary nodule. For patients with appropriate lung cancer risk, annual CT screening is recommended. Minimal emphysema. Mild ectasia of the ascending thoracic aorta measuring up to 4.3 cm in diameter. Information below is for Lung nodule tracking purposes: Nodule: S3 Other Findings: P-CAC Change: Na Recall : 1yr scr Recall Type: LDCT LungRads: 2s RECOMMENDATIONS: Lung-RADS: Category 2, Benign appearance or behavior. Management: Continue annual lung screening with LDCT in 12 months. I have personally reviewed the images of this examination and agree with the resident's findings and interpretation. Interpreted by: Lonnie Damon Preliminary Report By: Steve Breaux Electronically signed By Lonnie Damon Dictated Date: 10/06/2024 9:37:35 AM Prelim Date: 10/06/2024 10:03:44 AM Sign Date: 10/06/2024 10:03:44 AM Ordering Provider: BOBBY FOUNTAIN Normal [facility] PSAFon 08-31-2024 % Free PSA 20.9 % [facility] Comment on above: Result Comment: The table below lists the probability of prostate cancer for men with non-suspicious GITA results and total PSA between 4 and 10 ng/mL, by patient age (Naif et al, [place] 1998, 279:1542). % Free PSA 50-64 yr 65-75 yr 0.00-10.00% 56% 55% 10.01-15.00% 24% 35% 15.01-20.00% 17% 23% 20.01-25.00% 10% 20% >25.00% 5% 9% Please note: Naif et al did not make specific recommendations regarding the use of percent free PSA for any other population of men. Performed At: [address] [id number] Diana Ortiz PhD Ph:[phone] Performed By: #### [id number], LIPID #### [place] [address] PSA Free 1.86 ng/mL Normal N/A [facility] Comment on above: Result Comment: Ian CONRAD methodology. Performed By: #### [id number], LIPID #### [place] [address] .Auto Diffon 08-30-2024 Basophil, Absolute 0.1 10 3/mcL Normal 0.0-0.2 [facility] Comment on above: Performed By: #### V IDH, LIPID, [id number], CBC, CMP, ADIFF, GFR, TSHR, A1C, ANEU #### [place] [address] #### B12 #### [address] [address] Basophils/100 WBC (Bld) 0.9 % Normal 0.0-2.5 [facility] Comment on above: Performed By: #### V IDH, LIPID, [id number], CBC, CMP, ADIFF, GFR, TSHR, A1C, ANEU #### [place] [address] #### B12 #### [address] [address] Eosinophil, Absolute 0.3 10 3/mcL Normal 0.0-0.7 [facility] Comment on above: Performed By: #### V IDH, LIPID, [id number], CBC, CMP, ADIFF, GFR, TSHR, A1C, ANEU #### [place] [address] #### B12 #### [address] [address] Eosinophils/100 WBC (Bld) 4.5 % Normal 0.0-7.0 [facility] Comment on above: Performed By: #### V IDH, LIPID, [id number], CBC, CMP, ADIFF, GFR, TSHR, A1C, ANEU #### [address] [address] #### B12 #### [address] [address] Lymphocyte, Absolute 1.6 10 3/mcL Normal 0.9-4.3 [facility] Comment on above: Performed By: #### V IDH, LIPID, [id number], CBC, CMP, ADIFF, GFR, TSHR, A1C, ANEU #### [address] [address] #### B12 #### [address] [address] Lymphocytes/100 WBC (Bld) 23.8 % Normal 20.0-40.0 [facility] Comment on above: Performed By: #### V IDH, LIPID, [id number], CBC, CMP, ADIFF, GFR, TSHR, A1C, ANEU #### [address] [address] #### B12 #### [address] [address] Monocyte, Absolute 0.5 10 3/mcL Normal 0.1-1.4 [facility] Comment on above: Performed By: #### V IDH, LIPID, [id number], CBC, CMP, ADIFF, GFR, TSHR, A1C, ANEU #### [address] [address] #### B12 #### [address] [address] Monocytes/100 WBC (Bld) 7.6 % Normal 2.0-13.0 [facility] Comment on above: Performed By: #### V IDH, LIPID, [id number], CBC, CMP, ADIFF, GFR, TSHR, A1C, ANEU #### [address] [address] #### B12 #### [address] [address] Neutrophils/100 WBC (Bld) 63.2 % Normal 50.0-75.0 [facility] Comment on above: Performed By: #### V IDH, LIPID, [id number], CBC, CMP, ADIFF, GFR, TSHR, A1C, ANEU #### [address] [address] #### B12 #### [address] [address] .GFRon 08-30-2024 GFR 71 ml/min/1.73sqm [facility] Comment on above: Result Comment: GFR Population mean for , Non- Americans Ages 20-29 = 116 mL/min/1.73 sq.m. Ages 30-39 = 107 mL/min/1.73 sq.m. Ages 40-49 = 99 mL/min/1.73 sq.m. Ages 50-59 = 93 mL/min/1.73 sq.m. Ages 60-69 = 85 mL/min/1.73 sq.m. Ages 70+ = 75 mL/min/1.73 sq.m. Chronic Kidney Disease: Less than 60 mL/min/1.73 square meters End Stage Renal Disease: Less than 15 mL/min/1.73 square meters Performed By: #### V IDH, LIPID, [id number], CBC, CMP, ADIFF, GFR, TSHR, A1C, ANEU #### [address] [address] #### B12 #### [address] [address] GFR Non- 59 ml/min/1.73sqm [facility] Comment on above: Result Comment: GFR Population mean for , Non- Americans Ages 20-29 = 116 mL/min/1.73 sq.m. Ages 30-39 = 107 mL/min/1.73 sq.m. Ages 40-49 = 99 mL/min/1.73 sq.m. Ages 50-59 = 93 mL/min/1.73 sq.m. Ages 60-69 = 85 mL/min/1.73 sq.m. Ages 70+ = 75 mL/min/1.73 sq.m. Chronic Kidney Disease: Less than 60 mL/min/1.73 square meters End Stage Renal Disease: Less than 15 mL/min/1.73 square meters Performed By: #### V IDH, LIPID, [id number], CBC, CMP, ADIFF, GFR, TSHR, A1C, ANEU #### [address] [address] #### B12 #### [address] [address] .NEUABSon 08-30-2024 Neutrophil, Absolute 4.3 10 3/mcL Normal 2.3-8.1 [facility] Comment on above: Performed By: #### V IDH, LIPID, [id number], CBC, CMP, ADIFF, GFR, TSHR, A1C, ANEU #### [place] [address] #### B12 #### [place] [address] A1Con 08-30-2024 Glucose [Mass/Vol] 114 mg/dL Normal [facility] Comment on above: Result Comment: Yola mated Average Glucose calculated by equation ((28.7xA1C)-46.7) Estimated average glucose (eAG) is a calculated value from Hemoglobin A1C and is hostess party sales representative of the average blood glucose level in the last 2-3 month period. Normal range: less than 114 mg/dL Performed By: #### V IDH, LIPID, [id number], CBC, CMP, ADIFF, GFR, TSHR, A1C, ANEU #### [address] [address] #### B12 #### [place] [address] HbA1c (Bld) [Mass fraction] 5.6 % Normal 4.3-6.4 [facility] Comment on above: Performed By: #### V IDH, LIPID, [id number], CBC, CMP, ADIFF, GFR, TSHR, A1C, ANEU #### [address] [address] #### B12 #### [address] [address] B12on 08-30-2024 Cobalamin (Vitamin B12) [Mass/Vol] 985 pg/mL High 211-911 [facility] Comment on above: Performed By: #### 4 [id number], LIPID #### [address] [address] CBCon 08-30-2024 Erythrocyte distribution width (RBC) [Ratio] 13.7 % Normal 11.5-15.5 [facility] Comment on above: Performed By: #### V IDH, LIPID, [id number], CBC, CMP, ADIFF, GFR, TSHR, A1C, ANEU #### [place] [address] #### B12 #### [place] [address] Hematocrit (Bld) [Volume fraction] 46.6 % Normal 40.0-52.0 [facility] Comment on above: Performed By: #### V IDH, LIPID, [id number], CBC, CMP, ADIFF, GFR, TSHR, A1C, ANEU #### [place] [address] #### B12 #### [place] [address] Hgb 15.8 G/dL Normal 13.0-17.5 [facility] Comment on above: Performed By: #### V IDH, LIPID, [id number], CBC, CMP, ADIFF, GFR, TSHR, A1C, ANEU #### [place] [address] #### B12 #### [place] [address] MCH (RBC) [Entitic mass] 30.3 pg Normal 27.0-33.0 [facility] Comment on above: Performed By: #### V IDH, LIPID, [id number], CBC, CMP, ADIFF, GFR, TSHR, A1C, ANEU #### [place] [address] #### B12 #### [place] [address] MCHC 33.8 G/dL Normal 32.0-36.0 [facility] Comment on above: Performed By: #### V IDH, LIPID, [id number], CBC, CMP, ADIFF, GFR, TSHR, A1C, ANEU #### [address] [address] #### B12 #### [address] [address] MCV (RBC) [Entitic vol] 89.5 fL Normal 81.0-100.0 [facility] Comment on above: Performed By: #### V IDH, LIPID, [id number], CBC, CMP, ADIFF, GFR, TSHR, A1C, ANEU #### [address] [address] #### B12 #### [place] [address] Platelet 182 10 3/mcL Normal 150-450 [facility] Comment on above: Performed By: #### V IDH, LIPID, [id number], CBC, CMP, ADIFF, GFR, TSHR, A1C, ANEU #### [address] [address] #### B12 #### [address] [address] Platelet mean volume (Bld) [Entitic vol] 9.1 fL Normal 6.4-10.5 [facility] Comment on above: Performed By: #### V IDH, LIPID, [id number], CBC, CMP, ADIFF, GFR, TSHR, A1C, ANEU #### [address] [address] #### B12 #### [address] [address] RBC 5.21 10 6/mcL Normal 4.50-6.00 [facility] Comment on above: Performed By: #### V IDH, LIPID, [id number], CBC, CMP, ADIFF, GFR, TSHR, A1C, ANEU #### [address] [address] #### B12 #### [place] [address] WBC 6.8 10 3/mcL Normal 4.5-10.8 [facility] Comment on above: Performed By: #### V IDH, LIPID, [id number], CBC, CMP, ADIFF, GFR, TSHR, A1C, ANEU #### [address] [address] #### B12 #### [address] [address] CMPon 08-30-2024 Albumin Level 4.6 G/dL Normal 3.4-4.8 [facility] Comment on above: Performed By: #### V IDH, LIPID, [id number], CBC, CMP, ADIFF, GFR, TSHR, A1C, ANEU #### [place] [address] #### B12 #### [place] [address] Albumin/Globulin [Mass ratio] 1.5 {ratio} Normal 1.1-2.5 [facility] Comment on above: Performed By: #### V IDH, LIPID, [id number], CBC, CMP, ADIFF, GFR, TSHR, A1C, ANEU #### [place] [address] #### B12 #### [address] [address] ALP [Catalytic activity/Vol] 87 U/L Normal 40-135 [facility] Comment on above: Performed By: #### V IDH, LIPID, [id number], CBC, CMP, ADIFF, GFR, TSHR, A1C, ANEU #### [address] [address] #### B12 #### [place] [id number] ALT [Catalytic activity/Vol] 34 U/L Normal 16-63 [facility] Comment on above: Performed By: #### V IDH, LIPID, [id number], CBC, CMP, ADIFF, GFR, TSHR, A1C, ANEU #### [place] [address] #### B12 #### [address] [address] AST [Catalytic activity/Vol] 18 U/L Normal 10-40 [facility] Comment on above: Performed By: #### V IDH, LIPID, [id number], CBC, CMP, ADIFF, GFR, TSHR, A1C, ANEU #### [address] [address] #### B12 #### [address] [address] Bili Total 1.1 mg/dL High 0.2-1.0 [facility] Comment on above: Result Comment: Use of this assay is not recommended for patients undergoing treatment with eltrombopag due to the potential for falsely elevated results. Performed By: #### V IDH, LIPID, [id number], CBC, CMP, ADIFF, GFR, TSHR, A1C, ANEU #### [place] [address] #### B12 #### [place] [address] BUN/Creatinine Ratio 18 ratio Normal 7-27 [facility] Comment on above: Performed By: #### V IDH, LIPID, [id number], CBC, CMP, ADIFF, GFR, TSHR, A1C, ANEU #### [address] [address] #### B12 #### [address] [address] Calcium [Mass/Vol] 9.5 mg/dL Normal 8.4-10.2 [facility] Comment on above: Performed By: #### V IDH, LIPID, [id number], CBC, CMP, ADIFF, GFR, TSHR, A1C, ANEU #### [address] [address] #### B12 #### [address] [address] Chloride [Moles/Vol] 101 mmol/L Normal 98-107 [facility] Comment on above: Performed By: #### V IDH, LIPID, [id number], CBC, CMP, ADIFF, GFR, TSHR, A1C, ANEU #### [address] [address] #### B12 #### [address] [address] CO2 [Moles/Vol] 31 mmol/L Normal 23-31 [facility] Comment on above: Performed By: #### V IDH, LIPID, [id number], CBC, CMP, ADIFF, GFR, TSHR, A1C, ANEU #### [address] [address] #### B12 #### [address] [address] Creatinine [Mass/Vol] 1.24 mg/dL Normal 0.70-1.30 [facility] Comment on above: Result Comment: Test ing performed on Siemens Dimension EXL analyzer using a modified kinetic Nasim technique. Performed By: #### V IDH, LIPID, [id number], CBC, CMP, ADIFF, GFR, TSHR, A1C, ANEU #### [address] [address] #### B12 #### [address] [address] Electrolyte Balance 5.0 mEq/L Normal 4.0-15.0 [facility] Comment on above: Performed By: #### V IDH, LIPID, [id number], CBC, CMP, ADIFF, GFR, TSHR, A1C, ANEU #### [address] [address] #### B12 #### [address] [address] Globulin 3.1 G/dL Normal [facility] Comment on above: Performed By: #### V IDH, LIPID, [id number], CBC, CMP, ADIFF, GFR, TSHR, A1C, ANEU #### [address] [address] #### B12 #### [address] [address] Glucose [Mass/Vol] 102 mg/dL Normal 80-115 [facility] Comment on above: Performed By: #### V IDH, LIPID, [id number], CBC, CMP, ADIFF, GFR, TSHR, A1C, ANEU #### [address] [address] #### B12 #### [address] [address] Potassium [Moles/Vol] 4.7 mmol/L Normal 3.5-5.1 [facility] Comment on above: Performed By: #### V IDH, LIPID, [id number], CBC, CMP, ADIFF, GFR, TSHR, A1C, ANEU #### [address] [address] #### B12 #### [address] [address] Sodium [Moles/Vol] 137 mmol/L Normal 136-145 [facility] Comment on above: Performed By: #### V IDH, LIPID, [id number], CBC, CMP, ADIFF, GFR, TSHR, A1C, ANEU #### [address] [address] #### B12 #### [address] [address] Total Protein 7.7 G/dL Normal 6.4-8.2 [facility] Comment on above: Performed By: #### V IDH, LIPID, [id number], CBC, CMP, ADIFF, GFR, TSHR, A1C, ANEU #### [address] [address] #### B12 #### [address] [address] Urea nitrogen [Mass/Vol] 22 mg/dL High 7-18 [facility] Comment on above: Performed By: #### V IDH, LIPID, [id number], CBC, CMP, ADIFF, GFR, TSHR, A1C, ANEU #### [address] [address] #### B12 #### [address] [address] LABORATORYOrdered By: SYSTEM SYSTEM on 08-30-2024 25-hydroxyvitamin D3 [Mass/Vol] 90.7 ng/mL Invalid Interpretation Code AO ADM SS Comment on above: Interpretive Data: I nterpretive Values Based on Total 25(OH) Vitamin D: Deficient <20 ng/mL Insufficient 20 - <30 ng/mL Sufficient 30-100 ng/mL Albumin BCP dye [Mass/Vol] 4.6 G/dL Normal 3.4 - 4.8 G/dL AO ADM SS Albumin/Globulin [Mass ratio] 1.5 {ratio} Normal 1.1 - 2.5 ratio AO ADM SS ALP [Catalytic activity/Vol] 87 U/L Normal 40 - 135 U/L AO ADM SS ALT With P-5'-P [Catalytic activity/Vol] 34 U/L Normal 16 - 63 U/L AO ADM SS AST With P-5'-P [Catalytic activity/Vol] 18 U/L Normal 10 - 40 U/L AO ADM SS Basophils (Bld) [#/Vol] 0.1 103/mcL Normal 0.0 - 0.2 10^3/mcL AO Workflow SS Basophils/100 WBC (Bld) 0.9 % Normal 0.0 - 2.5 % AO Workflow SS Bilirubin [Mass/Vol] 1.1 mg/dL High 0.2 - 1 .0 mg/dL AO ADM SS Comment on above: Interpretive Data: U se of this assay is not recommended for patients undergoing treatment with eltrombopag due to the potential for falsely elevated results. Calcium [Mass/Vol] 9.5 mg/dL Normal 8.4 - 10. 2 mg/dL AO ADM SS Chloride [Moles/Vol] 101 mmol/L Normal 98 - 10 7 mmol/L AO ADM SS CO2 [Moles/Vol] 31 mmol/L Normal 23 - 31 mmol/L AO ADM SS Cobalamin (Vitamin B12) [Mass/Vol] 985 pg/mL High 211 - 911 pg/mL AH ADM SS Creatinine [Mass/Vol] 1.24 mg/dL Normal 0.70 - 1.30 mg/dL AO ADM SS Comment on above: Interpretive Data: T esting performed on Siemens Dimension EXL analyzer using a modified kinetic Nasim technique. Electrolyte Balance 5.0 mEq/L Normal 4.0 - 15 .0 mEq/L AO ADM SS Eosinophil, Absolute 0.3 103/mcL Normal 0.0 - 0 .7 10^3/mcL AO Workflow SS Eosinophils/100 WBC (Bld) 4.5 % Normal 0.0 - 7.0 % AO Workflow SS Erythrocyte distribution width (RBC) [Ratio] 13.7 % Normal 11.5 - 15.5 % AO Workflow SS GFR/1.73 sq M.predicted among blacks MDRD (S/P/Bld) [Vol rate/Area] 71 ml/min/1.73sqm Invalid Interpretation Code AO Chemistry S Comment on above: Interpretive Data: GFR Population mean for , Non- Americans Ages 20-29 = 116 mL/min/1.73 sq.m. Ages 30-39 = 107 mL/min/1.73 sq.m. Ages 40-49 = 99 mL/min/1.73 sq.m. Ages 50-59 = 93 mL/min/1.73 sq.m. Ages 60-69 = 85 mL/min/1.73 sq.m. Ages 70+ = 75 mL/min/1.73 sq.m. Chronic Kidney Disease: Less than 60 mL/min/1.73 square meters End Stage Renal Disease: Less than 15 mL/min/1.73 square meters GFR/1.73 sq M.predicted among non-blacks MDRD (S/P/Bld) [Vol rate/Area] 59 ml/min/1.73sqm Invalid Interpretation Code AO Chemistry S Comment on above: Interpretive Data: GFR Population mean for , Non- Americans Ages 20-29 = 116 mL/min/1.73 sq.m. Ages 30-39 = 107 mL/min/1.73 sq.m. Ages 40-49 = 99 mL/min/1.73 sq.m. Ages 50-59 = 93 mL/min/1.73 sq.m. Ages 60-69 = 85 mL/min/1.73 sq.m. Ages 70+ = 75 mL/min/1.73 sq.m. Chronic Kidney Disease: Less than 60 mL/min/1.73 square meters End Stage Renal Disease: Less than 15 mL/min/1.73 square meters Globulin 3.1 G/dL Invalid Interpretation Code AO ADM SS Glucose [Mass/Vol] 102 mg/dL Normal 80 - 115 mg/dL AO ADM SS Glucose [Mass/Vol] 114 mg/dL Invalid Interpretation Code AO Chemistry S Comment on above: Interpretive Data: E stimated average glucose (eAG) is a calculated value from Hemoglobin A1C and is hostess party sales representative of the average blood glucose level in the last 2-3 month period. Normal range: less than 114 mg/dL HbA1c (Bld) [Mass fraction] 5.6 % Normal 4.3 - 6.4 % AO ADM SS Hematocrit (Bld) [Volume fraction] 46.6 % Normal 40.0 - 52.0 % AO Workflow SS Hemoglobin (Bld) [Mass/Vol] 15.8 G/dL Normal 13.0 - 17.5 G/dL AO Workflow SS Lymphocytes (Bld) [#/Vol] 1.6 103/mcL Normal 0.9 - 4.3 10^3/mcL AO Workflow SS Lymphocytes/100 WBC (Bld) 23.8 % Normal 20.0 - 40.0 % AO Workflow SS MCH (RBC) [Entitic mass] 30.3 pg Normal 27.0 - 33.0 pg AO Workflow SS MCHC 33.8 G/dL Normal 32.0 - 36.0 G/dL AO Workflow SS MCV (RBC) [Entitic vol] 89.5 fL Normal 81.0 - 100.0 fL AO Workflow SS Monocytes (Bld) [#/Vol] 0.5 103/mcL Normal 0.1 - 1.4 10^3/mcL AO Workflow SS Monocytes/100 WBC (Bld) 7.6 % Normal 2.0 - 13.0 % AO Workflow SS Neutrophils (Bld) [#/Vol] 4.3 103/mcL Normal 2.3 - 8.1 10^3/mcL AO Workflow SS Neutrophils/100 WBC (Bld) 63.2 % Normal 50.0 - 75.0 % AO Workflow SS Platelet mean volume (Bld) [Entitic vol] 9.1 fL Normal 6.4 - 10.5 fL AO Workflow SS Platelets (Bld) [#/Vol] 182 103/mcL Normal 150 - 450 10^3/mcL AO Workflow SS Potassium [Moles/Vol] 4.7 mmol/L Normal 3.5 - 5.1 mmol/L AO ADM SS Protein [Mass/Vol] 7.7 G/dL Normal 6.4 - 8.2 G/dL AO ADM SS RBC (Bld) [#/Vol] 5.21 106/mcL Normal 4.50 - 6.00 10^6/mcL AO Workflow SS Sodium [Moles/Vol] 137 mmol/L Normal 136 - 145 mmol/L AO ADM SS TSH Qn 1.22 m[IU]/L Normal 0.36 - 3.74 mcIU/mL AO ADM SS Urea nitrogen [Mass/Vol] 22 mg/dL High 7 - 18 mg/dL AO ADM SS Urea nitrogen/Creatinine [Mass ratio] 18 ratio Normal 7 - 27 ratio AO ADM SS WBC (Bld) [#/Vol] 6.8 103/mcL Normal 4.5 - 10.8 10^3/mcL AO Workflow SS LABORATORYOrdered By: Elliott Saab on 08-30-2024 Cholesterol [Mass/Vol] 234 mg/dL High 0 - 2 00 mg/dL AO ADM SS Comment on above: Interpretive Data: C holesterol Reference Interval: Less than 200 Desirable 200-239 Borderline high risk 240 and above High risk Cholesterol in HDL [Mass/Vol] 57 mg/dL Normal 40 - 60 mg/dL AO ADM SS Cholesterol in LDL [Mass/Vol] 161 mg/dL High 0 - 130 mg/dL AO ADM SS Triglyceride [Mass/Vol] 79 mg/dL Normal 0 - 150 mg/dL AO ADM SS Comment on above: Interpretive Data: T riglyceride Reference Interval: Less than 150 Normal 150-199 Borderline high risk 200-499 High risk 500 or higher Very high risk LIPIDon 08-30-2024 Cholesterol [Mass/Vol] 234 mg/dL High 0-200 [facility] Comment on above: Result Comment: Chol esterol Reference Interval: Less than 200 Desirable 200-239 Borderline high risk 240 and above High risk Performed By: #### 4 [id number], LIPID #### [address] [address] Cholesterol in HDL [Mass/Vol] 57 mg/dL Normal 40-60 [facility] Comment on above: Performed By: #### 4 [id number], LIPID #### [place] [id number] [place], [place] [address] Cholesterol in LDL [Mass/Vol] 161 mg/dL High 0-130 [facility] Comment on above: Performed By: #### 4 [id number], LIPID #### [address] [address] Triglyceride [Mass/Vol] 79 mg/dL Normal 0-150 [facility] Comment on above: Result Comment: Trig lyceride Reference Interval: Less than 150 Normal 150-199 Borderline high risk 200-499 High risk 500 or higher Very high risk Performed By: #### 4 [id number], LIPID #### [place] [id number] [place], [place] [address] TSHRon 08-30-2024 TSH Qn 1.22 m[IU]/L Normal 0.36-3.74 [facility] Comment on above: Performed By: #### V IDH, LIPID, [id number], CBC, CMP, ADIFF, GFR, TSHR, A1C, ANEU #### [address] [address] #### B12 #### [place] [address] VIDHon 08-30-2024 Vit. D 25-Hydroxy 90.7 ng/mL Normal [facility] Comment on above: Result Comment: Inte rpretive Values Based on Total 25(OH) Vitamin D: Deficient <20 ng/mL Insufficient 20 - <30 ng/mL Sufficient 30-100 ng/mL Performed By: #### V IDH, LIPID, [id number], CBC, CMP, ADIFF, GFR, TSHR, A1C, ANEU #### [address] [address] #### B12 #### [place] [address] PSAFon 03-06-2024 % Free PSA 23.9 % Normal [facility] ([place]) Comment on above: Result Comment: The table below lists the probability of prostate cancer for men with non-suspicious GITA results and total PSA between 4 and 10 ng/mL, by patient age (Naif et al, [place] 1998, 279:1542). % Free PSA 50-64 yr 65-75 yr 0.00-10.00% 56% 55% 10.01-15.00% 24% 35% 15.01-20.00% 17% 23% 20.01-25.00% 10% 20% >25.00% 5% 9% Please note: Naif et al did not make specific recommendations regarding the use of percent free PSA for any other population of men. Performed At: [facility] [id number] Diana Ortiz PhD Ph:[phone] Performed By: #### G , [id number], CMP #### [place] [id number] PSA Free 1.29 ng/mL Normal N/A [facility] ([place]) Comment on above: Result Comment: Ian CONRAD methodology. Performed By: #### G , [id number], CMP #### [address] [address] .GFRon 03-05-2024 GFR 62 ml/min/1.73sqm Normal [facility] ([place]) Comment on above: Result Comment: GFR Population mean for , Non- Americans Ages 20-29 = 116 mL/min/1.73 sq.m. Ages 30-39 = 107 mL/min/1.73 sq.m. Ages 40-49 = 99 mL/min/1.73 sq.m. Ages 50-59 = 93 mL/min/1.73 sq.m. Ages 60-69 = 85 mL/min/1.73 sq.m. Ages 70+ = 75 mL/min/1.73 sq.m. Chronic Kidney Disease: Less than 60 mL/min/1.73 square meters End Stage Renal Disease: Less than 15 mL/min/1.73 square meters Performed By: #### G , [id number], CMP #### [address] [address] GFR Non- 51 ml/min/1.73sqm Normal [facility] ([place]) Comment on above: Result Comment: GFR Population mean for , Non- Americans Ages 20-29 = 116 mL/min/1.73 sq.m. Ages 30-39 = 107 mL/min/1.73 sq.m. Ages 40-49 = 99 mL/min/1.73 sq.m. Ages 50-59 = 93 mL/min/1.73 sq.m. Ages 60-69 = 85 mL/min/1.73 sq.m. Ages 70+ = 75 mL/min/1.73 sq.m. Chronic Kidney Disease: Less than 60 mL/min/1.73 square meters End Stage Renal Disease: Less than 15 mL/min/1.73 square meters Performed By: #### Simone , [id number], CMP #### [address] [address] CMPon 03-05-2024 Albumin Level 4.0 G/dL Normal 3.4-4.8 [facility] ([place]) Comment on above: Performed By: #### Simone DURAN, [id number], CMP #### [address] [address] Albumin/Globulin [Mass ratio] 1.2 {ratio} Normal 1.1-2.5 [facility] ([place]) Comment on above: Performed By: #### Simone DURAN, [id number], CMP #### [address] [address] ALP [Catalytic activity/Vol] 99 U/L Normal 40-135 [facility] ([place]) Comment on above: Performed By: #### Simone DURAN, [id number], CMP #### [address] [address] ALT [Catalytic activity/Vol] 32 U/L Normal 16-63 [facility] ([place]) Comment on above: Performed By: #### Simone DURAN, [id number], CMP #### [address] [address] AST [Catalytic activity/Vol] 17 U/L Normal 10-40 [facility] ([place]) Comment on above: Performed By: #### Simone DURAN, [id number], CMP #### [address] [address] Bili Total 0.4 mg/dL Normal 0.2-1.0 [facility] ([place]) Comment on above: Result Comment: Use of this assay is not recommended for patients undergoing treatment with eltrombopag due to the potential for falsely elevated results. Performed By: #### G , [id number], CMP #### [address] [address] BUN/Creatinine Ratio 17 ratio Normal 7-27 [facility] ([place]) Comment on above: Performed By: #### G , 055966, CMP #### [address] [address] Calcium [Mass/Vol] 8.9 mg/dL Normal 8.4-10.2 [facility] ([place]) Comment on above: Performed By: #### G , [id number], CMP #### [address] [address] Chloride [Moles/Vol] 104 mmol/L Normal 98-107 [facility] ([place]) Comment on above: Performed By: #### Simone DURAN, [id number], CMP #### [address] [address] CO2 [Moles/Vol] 27 mmol/L Normal 23-31 [facility] ([place]) Comment on above: Performed By: #### Simone , 602345, CMP #### [address] [address] Creatinine [Mass/Vol] 1.40 mg/dL High 0.70-1.30 [facility] ([place]) Comment on above: Performed By: #### Simone , 342709, CMP #### [address] [address] Electrolyte Balance 12.0 mEq/L Normal 4.0-15.0 [facility] ([place]) Comment on above: Performed By: #### Simone , 121845, CMP #### [address] [address] Globulin 3.4 G/dL Normal [facility] ([place]) Comment on above: Performed By: #### Simone DURAN, [id number], CMP #### [address] [address] Glucose [Mass/Vol] 116 mg/dL High 80-115 [facility] ([place]) Comment on above: Performed By: #### Simone , 736569, CMP #### [address] [address] Potassium [Moles/Vol] 3.9 mmol/L Normal 3.5-5.1 [facility] ([place]) Comment on above: Performed By: #### Simone DURAN, 135559, CMP #### [address] [address] Sodium [Moles/Vol] 143 mmol/L Normal 136-145 [facility] ([place]) Comment on above: Performed By: #### Simone , 117836, CMP #### [address] [address] Total Protein 7.4 G/dL Normal 6.4-8.2 [facility] ([place]) Comment on above: Performed By: #### Simone , 313186, CMP #### [address] [address] Urea nitrogen [Mass/Vol] 24 mg/dL High 7-18 [facility] ([place]) Comment on above: Performed By: #### Simone , 531958, CMP #### [address] [address] LABORATORYOrdered By: SYSTEM SYSTEM on 03-05-2024 Albumin BCP dye [Mass/Vol] 4.0 G/dL Normal 3.4 - 4.8 G/dL AO ADM SS Albumin/Globulin [Mass ratio] 1.2 {ratio} Normal 1.1 - 2.5 ratio AO ADM SS ALP [Catalytic activity/Vol] 99 U/L Normal 40 - 135 U/L AO ADM SS ALT With P-5'-P [Catalytic activity/Vol] 32 U/L Normal 16 - 63 U/L AO ADM SS AST With P-5'-P [Catalytic activity/Vol] 17 U/L Normal 10 - 40 U/L AO ADM SS Bilirubin [Mass/Vol] 0.4 mg/dL Normal 0.2 - 1 .0 mg/dL AO ADM SS Comment on above: Interpretive Data: U se of this assay is not recommended for patients undergoing treatment with eltrombopag due to the potential for falsely elevated results. Calcium [Mass/Vol] 8.9 mg/dL Normal 8.4 - 10. 2 mg/dL AO ADM SS Chloride [Moles/Vol] 104 mmol/L Normal 98 - 10 7 mmol/L AO ADM SS CO2 [Moles/Vol] 27 mmol/L Normal 23 - 31 mmol/L AO ADM SS Creatinine [Mass/Vol] 1.40 mg/dL High 0.70 - 1.30 mg/dL AO ADM SS Electrolyte Balance 12.0 mEq/L Normal 4.0 - 15 .0 mEq/L AO ADM SS GFR/1.73 sq M.predicted among blacks MDRD (S/P/Bld) [Vol rate/Area] 62 ml/min/1.73sqm Invalid Interpretation Code AO Chemistry S Comment on above: Interpretive Data: GFR Population mean for , Non- Americans Ages 20-29 = 116 mL/min/1.73 sq.m. Ages 30-39 = 107 mL/min/1.73 sq.m. Ages 40-49 = 99 mL/min/1.73 sq.m. Ages 50-59 = 93 mL/min/1.73 sq.m. Ages 60-69 = 85 mL/min/1.73 sq.m. Ages 70+ = 75 mL/min/1.73 sq.m. Chronic Kidney Disease: Less than 60 mL/min/1.73 square meters End Stage Renal Disease: Less than 15 mL/min/1.73 square meters GFR/1.73 sq M.predicted among non-blacks MDRD (S/P/Bld) [Vol rate/Area] 51 ml/min/1.73sqm Invalid Interpretation Code AO Chemistry S Comment on above: Interpretive Data: GFR Population mean for , Non- Americans Ages 20-29 = 116 mL/min/1.73 sq.m. Ages 30-39 = 107 mL/min/1.73 sq.m. Ages 40-49 = 99 mL/min/1.73 sq.m. Ages 50-59 = 93 mL/min/1.73 sq.m. Ages 60-69 = 85 mL/min/1.73 sq.m. Ages 70+ = 75 mL/min/1.73 sq.m. Chronic Kidney Disease: Less than 60 mL/min/1.73 square meters End Stage Renal Disease: Less than 15 mL/min/1.73 square meters Globulin 3.4 G/dL Invalid Interpretation Code AO ADM SS Glucose [Mass/Vol] 116 mg/dL High 80 - 115 mg/dL AO ADM SS Potassium [Moles/Vol] 3.9 mmol/L Normal 3.5 - 5.1 mmol/L AO ADM SS Protein [Mass/Vol] 7.4 G/dL Normal 6.4 - 8.2 G/dL AO ADM SS Sodium [Moles/Vol] 143 mmol/L Normal 136 - 145 mmol/L AO ADM SS Urea nitrogen [Mass/Vol] 24 mg/dL High 7 - 18 mg/dL AO ADM SS Urea nitrogen/Creatinine [Mass ratio] 17 ratio Normal 7 - 27 ratio AO ADM SS Basophil percentageOrdered B y: Lucio Lane on 10-31-2023 Basophil percentage < 1.0 mg/dL 0.70-1.30 [facility] No Panel InformationOrdered By: Lucio Lane on 10-31-2023 Bedside Estimated GFR (eGFR) > 60.0000 mL/min >60 [facility] PSAFon 10-16-2023 % Free PSA 18.8 % Normal [facility] ([place]) Comment on above: Result Comment: The table below lists the probability of prostate cancer for men with non-suspicious GITA results and total PSA between 4 and 10 ng/mL, by patient age (Naif et al, [place] 1998, 279:1542). % Free PSA 50-64 yr 65-75 yr 0.00-10.00% 56% 55% 10.01-15.00% 24% 35% 15.01-20.00% 17% 23% 20.01-25.00% 10% 20% >25.00% 5% 9% Please note: Naif et al did not make specific recommendations regarding the use of percent free PSA for any other population of men. Performed At: [facility] [address] [id number] Diana Ortiz PhD Ph:[phone] Performed By: #### 4 [id number] #### [address] [address] PSA Free 1.22 ng/mL Normal N/A [facility] ([place]) Comment on above: Result Comment: Ian CONRAD methodology. Performed By: #### 4 [id number] #### [address] [address] .GFRon 10-14-2023 GFR 63 ml/min/1.73sqm Normal [facility] ([place]) Comment on above: Result Comment: GFR Population mean for , Non- Americans Ages 20-29 = 116 mL/min/1.73 sq.m. Ages 30-39 = 107 mL/min/1.73 sq.m. Ages 40-49 = 99 mL/min/1.73 sq.m. Ages 50-59 = 93 mL/min/1.73 sq.m. Ages 60-69 = 85 mL/min/1.73 sq.m. Ages 70+ = 75 mL/min/1.73 sq.m. Chronic Kidney Disease: Less than 60 mL/min/1.73 square meters End Stage Renal Disease: Less than 15 mL/min/1.73 square meters Performed By: #### B MP, GFR #### [address] [address] GFR Non- 52 ml/min/1.73sqm Normal [facility] ([place]) Comment on above: Result Comment: GFR Population mean for , Non- Americans Ages 20-29 = 116 mL/min/1.73 sq.m. Ages 30-39 = 107 mL/min/1.73 sq.m. Ages 40-49 = 99 mL/min/1.73 sq.m. Ages 50-59 = 93 mL/min/1.73 sq.m. Ages 60-69 = 85 mL/min/1.73 sq.m. Ages 70+ = 75 mL/min/1.73 sq.m. Chronic Kidney Disease: Less than 60 mL/min/1.73 square meters End Stage Renal Disease: Less than 15 mL/min/1.73 square meters Performed By: #### B MP, GFR #### [address] [address] BMPon 10-14-2023 BUN/Creatinine Ratio 12 ratio Normal 7-27 [facility] ([place]) Comment on above: Performed By: #### B MP, GFR #### [address] [address] Calcium [Mass/Vol] 9.0 mg/dL Normal 8.4-10.2 [facility] ([place]) Comment on above: Performed By: #### B MP, GFR #### [address] [address] Chloride [Moles/Vol] 107 mmol/L Normal 98-107 [facility] ([place]) Comment on above: Performed By: #### B MP, GFR #### [address] [address] CO2 [Moles/Vol] 30 mmol/L Normal 23-31 [facility] ([place]) Comment on above: Performed By: #### B MP, GFR #### [address] [address] Creatinine [Mass/Vol] 1.39 mg/dL High 0.70-1.30 [facility] ([place]) Comment on above: Performed By: #### B MP, GFR #### [address] [address] Electrolyte Balance 8.0 mEq/L Normal 4.0-15.0 [facility] ([place]) Comment on above: Performed By: #### B MP, GFR #### [address] [address] Glucose [Mass/Vol] 106 mg/dL Normal 80-115 [facility] ([place]) Comment on above: Performed By: #### B MP, GFR #### [address] [address] Potassium [Moles/Vol] 4.0 mmol/L Normal 3.5-5.1 [facility] ([place]) Comment on above: Performed By: #### B MP, GFR #### [address] [address] Sodium [Moles/Vol] 145 mmol/L Normal 136-145 [facility] ([place]) Comment on above: Performed By: #### B MP, GFR #### [facility] [address], [place] [address] Urea nitrogen [Mass/Vol] 16 mg/dL Normal 7-18 [facility] ([place]) Comment on above: Performed By: #### B MP, GFR #### [facility] [place] [address], [place] [address] MALBRon 10-14-2023 U Creatinine 102.4 mg/dL Normal 39.0-259.0 [facility] ([place]) Comment on above: Performed By: #### M ALBR #### [address] [address] U Microalb 533 mcg/dL Normal [facility] ([place]) Comment on above: Performed By: #### M ALBR #### [id number] [place], [place] [address] U Ratio Alb/Cre 5 mcg/mg Normal 0-30 [facility] ([place]) Comment on above: Performed By: #### M ALBR #### [facility] [address] [place], [place] [address] Absolute lymphocyte countOrd ered By: Addy Ovalle on 08-09-2023 Lymphocytes Auto (Unsp spec) [#/Vol] 1.35 10*3/uL 0.83-4.51 [facility] Basophil percentageOrdered B y: Addy Ovalle on 08-09-2023 Basophils/100 WBC (Bld) 0.5 % 0-1 [facility] Eosinophils/100 WBC (Bld) 0.5 % 0-5 [facility] Neutrophils (Bld) [#/Vol] 6.5 10*3/uL 2.0-7.7 [facility] Neutrophils/100 WBC (Bld) 76.8 % 47-70 [facility] WBC (Bld) [#/Vol] 8.5 10*3/uL 4.4-11.0 [facility] Bilirubin [Mass/Vol] 0.70 mg/dL 0.20-1.00 [facility] Comment on above: For patients on eltr ombopag therapy, use of Dimension [place] TBIL is not recommended. Chloride [Moles/Vol] 105 mmol/L 98-107 [facility] Glucose [Mass/Vol] 142 mg/dL 74-106 [facility] Comment on above: Fasting Glucose resu lt greater than or equal to 126 mg/dL suggests DIABETES MELLITUS per A.D.A. criteria. Potassium [Moles/Vol] 3.3 mmol/L 3.5-5.1 [facility] Protein [Mass/Vol] 7.9 g/dL 6.4-8.2 [facility] Sodium [Moles/Vol] 138 mmol/L 136-145 [facility] Blood erythrocytes count (nu mber/volume)Ordered By: Addy Ovalle on 08-09-2023 RBC (Bld) [#/Vol] 4.78 10*6/uL 4.6-6.2 [facility] Blood hemoglobin measurement (mass/volume)Ordered By: Addy Ovalle on 08-09-2023 Hemoglobin (Bld) [Mass/Vol] 13.9 g/dL 13.0-16.5 [facility] Blood lymphocytes/100 leukoc ytesOrdered By: Addy Ovalle on 08-09-2023 Lymphocytes/100 WBC (Bld) 15.9 % 19-41 [facility] Blood monocytes/100 leukocyt esOrdered By: Addy Ovalle on 08-09-2023 Monocytes/100 WBC (Bld) 6.1 % 0-10 [facility] Blood platelet mean volumeOr dered By: Addy Ovalle on 08-09-2023 Platelet mean volume (Bld) [Entitic vol] 9.8 fL 6.2-12.0 [facility] Determination of erythrocyte mean corpuscular volume (MCV)Ordered By: Addy Ovalle on 08-09-2023 MCV (RBC) [Entitic vol] 88.5 fL 80-94 [facility] Direct bilirubinOrdered By: Addy Ovalle on 08-09-2023 Bilirubin.direct [Mass/Vol] 0.18 mg/dL 0.00-0.30 [facility] Hematocrit Auto (Bld) [Volum e fraction]Ordered By: Addy Ovalle on 08-09-2023 Hematocrit (Bld) [Volume fraction] 42.3 % 40-54 [facility] Laboratory - Chemistry and C hemistry - challengeOrdered By: Addy Ovalle on 08-09-2023 ALP [Catalytic activity/Vol] 76 U/L 45-117 [facility] ALT [Catalytic activity/Vol] 34 U/L 16-61 [facility] CO2 [Moles/Vol] 27.0 mmol/L 21.0-32.0 [facility] Globulin (S) [Mass/Vol] 3.9 g/dL 2.2-4.2 [facility] Lipase [Catalytic activity/Vol] 85 U/L 13-75 [facility] Comment on above: Please note:LIPASE r evised reference range effective 23. New Lipase methodology. Expected to produce lower values than the previous assay method. NEW Reference Range: 13 - 75 U/L Urea nitrogen/Creatinine [Mass ratio] 10.6 mg/mg 10-20 [facility] Laboratory - Hematology and Cell countsOrdered By: Addy Ovalle on 08-09-2023 Erythrocyte distribution width (RBC) [Entitic vol] 42.2 fL 35.1-43.9 [facility] Erythrocyte distribution width (RBC) [Ratio] 12.8 % 11.6-14.6 [facility] Immature granulocytes/100 WBC (Bld) 0.200 % 0.0-0.9 [facility] Comment on above: IG% - Immature Granu locytes (promyelocytes, myelocytes and metamyelocytes) > 1% indicates that a LEFT SHIFT is Present. MCH (RBC) [Entitic mass] 29.1 pg 27.0-32.0 [facility] Nucleated RBC/100 WBC (Bld) [Ratio] 0 % 0-5 [facility] MCHC Auto (RBC) [Mass/Vol]Or dered By: Addy Ovalle on 08-09-2023 MCHC (RBC) [Mass/Vol] 32.9 g/dL 32-36 [facility] No Panel InformationOrdered By: Addy Ovalle on 08-09-2023 Troponin I High Sensitivity 5 pg/mL 3.0-78.0 [facility] Comment on above: Please Note: New Lakshmi t Units and Gender Specific Reference Ranges. For more information see Policy Stat Procedure [place] High Sensitivity Troponin (TNIH) and attachments. Estimated Creatinine Clearance Calc 54.02 ml/min [facility] Estimated GFR (MDRD) Amer 60 mL/min >60 [facility] Comment on above: GFR Calc Estimated GFR (MDRD) Non-Af Amer 50 mL/min >60 [facility] Comment on above: Non- GFR Calc Platelets bldOrdered By: Jan Ovalle on 08-09-2023 Platelets (Bld) [#/Vol] 170 10*3/uL 150-450 [facility] Serum or plasma albumin kavitha urement (mass/volume)Ordered By: Addy Ovalle on 08-09-2023 Albumin [Mass/Vol] 4.0 g/dL 3.2-5.0 [facility] Serum or plasma calcium kavitha urement (mass/volume)Ordered By: Addy Ovalle on 08-09-2023 Calcium [Mass/Vol] 9.0 mg/dL 8.5-10.1 [facility] Serum or plasma creatinine m easurement (mass/volume)Ordered By: Addy Ovalle on 08-09-2023 Creatinine [Mass/Vol] 1.51 mg/dL 0.70-1.30 [facility] Comment on above: The validity of the calculated GFR & GFRAA in patients over 70 years has not been determined. Clinical correlation is essential. Serum or plasma urea nitroge n measurement (mass/volume)Ordered By: Addy Ovalle on 08-09-2023 Urea nitrogen [Mass/Vol] 16 mg/dL 7-18 [facility] Thin prep Papanicolaou smear with manual screeningOrdered By: Addy Ovalle on 08-09-2023 Thin prep Papanicolaou smear with manual screening 14 U/L 15-37 [facility] Thin prep Papanicolaou smear with manual screening 6 5-15 [facility] .GFRon 08-07-2023 GFR 60 ml/min/1.73sqm Normal [facility] ([place]) Comment on above: Result Comment: GFR Population mean for , Non- Americans Ages 20-29 = 116 mL/min/1.73 sq.m. Ages 30-39 = 107 mL/min/1.73 sq.m. Ages 40-49 = 99 mL/min/1.73 sq.m. Ages 50-59 = 93 mL/min/1.73 sq.m. Ages 60-69 = 85 mL/min/1.73 sq.m. Ages 70+ = 75 mL/min/1.73 sq.m. Chronic Kidney Disease: Less than 60 mL/min/1.73 square meters End Stage Renal Disease: Less than 15 mL/min/1.73 square meters Performed By: #### C MP, PSA, GFR #### [address] [address] GFR Non- 49 ml/min/1.73sqm Normal [facility] ([place]) Comment on above: Result Comment: GFR Population mean for , Non- Americans Ages 20-29 = 116 mL/min/1.73 sq.m. Ages 30-39 = 107 mL/min/1.73 sq.m. Ages 40-49 = 99 mL/min/1.73 sq.m. Ages 50-59 = 93 mL/min/1.73 sq.m. Ages 60-69 = 85 mL/min/1.73 sq.m. Ages 70+ = 75 mL/min/1.73 sq.m. Chronic Kidney Disease: Less than 60 mL/min/1.73 square meters End Stage Renal Disease: Less than 15 mL/min/1.73 square meters Performed By: #### C MP, PSA, GFR #### [address] [address] [facility] 08-07-2023 Albumin Level 4.2 G/dL Normal 3.4-4.8 [facility] ([place]) Comment on above: Performed By: #### C MP, PSA, GFR #### [address] [address] Albumin/Globulin [Mass ratio] 1.2 {ratio} Normal 1.1-2.5 [facility] ([place]) Comment on above: Performed By: #### C MP, PSA, GFR #### [address] [address] ALP [Catalytic activity/Vol] 80 U/L Normal 40-135 [facility] ([place]) Comment on above: Performed By: #### C MP, PSA, GFR #### [address] [address] ALT [Catalytic activity/Vol] 35 U/L Normal 16-63 [facility] ([place]) Comment on above: Performed By: #### C MP, PSA, GFR #### [address] [address] AST [Catalytic activity/Vol] 19 U/L Normal 10-40 [facility] ([place]) Comment on above: Performed By: #### C MP, PSA, GFR #### [address] [address] Bili Total 0.8 mg/dL Normal 0.2-1.0 [facility] ([place]) Comment on above: Result Comment: Use of this assay is not recommended for patients undergoing treatment with eltrombopag due to the potential for falsely elevated results. Performed By: #### C MP, PSA, GFR #### [address] [address] BUN/Creatinine Ratio 10 ratio Normal 7-27 [facility] ([place]) Comment on above: Performed By: #### C MP, PSA, GFR #### [address] [address] Calcium [Mass/Vol] 9.0 mg/dL Normal 8.4-10.2 [facility] ([place]) Comment on above: Performed By: #### C MP, PSA, GFR #### [address] [address] Chloride [Moles/Vol] 103 mmol/L Normal 98-107 [facility] ([place]) Comment on above: Performed By: #### C MP, PSA, GFR #### [address] [address] CO2 [Moles/Vol] 29 mmol/L Normal 23-31 [facility] ([place]) Comment on above: Performed By: #### C MP, PSA, GFR #### [address] [address] Creatinine [Mass/Vol] 1.45 mg/dL High 0.70-1.30 [facility] ([place]) Comment on above: Performed By: #### C MP, PSA, GFR #### [address] [address] Electrolyte Balance 5.0 mEq/L Normal 4.0-15.0 [facility] ([place]) Comment on above: Performed By: #### C MP, PSA, GFR #### [address] [address] Globulin 3.6 G/dL Normal [facility] ([place]) Comment on above: Performed By: #### C MP, PSA, GFR #### [address] [address] Glucose [Mass/Vol] 95 mg/dL Normal 80-115 [facility] ([place]) Comment on above: Performed By: #### C MP, PSA, GFR #### [address] [address] Potassium [Moles/Vol] 3.8 mmol/L Normal 3.5-5.1 [facility] ([place]) Comment on above: Performed By: #### C MP, PSA, GFR #### [address] [address] Sodium [Moles/Vol] 137 mmol/L Normal 136-145 [facility] ([place]) Comment on above: Performed By: #### C MP, PSA, GFR #### [address] [address] Total Protein 7.8 G/dL Normal 6.4-8.2 [facility] ([place]) Comment on above: Performed By: #### C MP, PSA, GFR #### [address] [address] Urea nitrogen [Mass/Vol] 15 mg/dL Normal 7-18 [facility] ([place]) Comment on above: Performed By: #### C MP, PSA, GFR #### [address] [address] LABORATORYOrdered By: SYSTEM SYSTEM on 08-07-2023 Albumin BCP dye [Mass/Vol] 4.2 G/dL Invalid Interpretation Code 3.4 - 4.8 G/dL AO ADM SS Albumin/Globulin [Mass ratio] 1.2 {ratio} Invalid Interpretation Code 1.1 - 2.5 ratio AO ADM SS ALP [Catalytic activity/Vol] 80 U/L Invalid Interpretation Code 40 - 135 U/L AO ADM SS ALT With P-5'-P [Catalytic activity/Vol] 35 U/L Invalid Interpretation Code 16 - 63 U/L AO ADM SS AST With P-5'-P [Catalytic activity/Vol] 19 U/L Invalid Interpretation Code 10 - 40 U/L AO ADM SS Bilirubin [Mass/Vol] 0.8 mg/dL Invalid Interpretation Code 0.2 - 1.0 mg/dL AO ADM SS Comment on above: Interpretive Data: U se of this assay is not recommended for patients undergoing treatment with eltrombopag due to the potential for falsely elevated results. Calcium [Mass/Vol] 9.0 mg/dL Invalid Interpretation Code 8.4 - 10.2 mg/dL AO ADM SS Chloride [Moles/Vol] 103 mmol/L Invalid Interpretation Code 98 - 107 mmol/L AO ADM SS CO2 [Moles/Vol] 29 mmol/L Invalid Interpretation Code 23 - 31 mmol/L AO ADM SS Creatinine [Mass/Vol] 1.45 mg/dL Invalid Interpretation Code 0.70 - 1.30 mg/dL AO ADM SS Electrolyte Balance 5.0 mEq/L Invalid Interpretation Code 4.0 - 15.0 mEq/L AO ADM SS GFR/1.73 sq M.predicted among blacks MDRD (S/P/Bld) [Vol rate/Area] 60 ml/min/1.73sqm Invalid Interpretation Code AO Chemistry S Comment on above: Interpretive Data: GFR Population mean for , Non- Americans Ages 20-29 = 116 mL/min/1.73 sq.m. Ages 30-39 = 107 mL/min/1.73 sq.m. Ages 40-49 = 99 mL/min/1.73 sq.m. Ages 50-59 = 93 mL/min/1.73 sq.m. Ages 60-69 = 85 mL/min/1.73 sq.m. Ages 70+ = 75 mL/min/1.73 sq.m. Chronic Kidney Disease: Less than 60 mL/min/1.73 square meters End Stage Renal Disease: Less than 15 mL/min/1.73 square meters GFR/1.73 sq M.predicted among non-blacks MDRD (S/P/Bld) [Vol rate/Area] 49 ml/min/1.73sqm Invalid Interpretation Code AO Chemistry S Comment on above: Interpretive Data: GFR Population mean for , Non- Americans Ages 20-29 = 116 mL/min/1.73 sq.m. Ages 30-39 = 107 mL/min/1.73 sq.m. Ages 40-49 = 99 mL/min/1.73 sq.m. Ages 50-59 = 93 mL/min/1.73 sq.m. Ages 60-69 = 85 mL/min/1.73 sq.m. Ages 70+ = 75 mL/min/1.73 sq.m. Chronic Kidney Disease: Less than 60 mL/min/1.73 square meters End Stage Renal Disease: Less than 15 mL/min/1.73 square meters Globulin 3.6 G/dL Invalid Interpretation Code AO ADM SS Glucose [Mass/Vol] 95 mg/dL Invalid Interpretation Code 80 - 115 mg/dL AO ADM SS Potassium [Moles/Vol] 3.8 mmol/L Invalid Interpretation Code 3.5 - 5.1 mmol/L AO ADM SS Prostate specific Ag [Mass/Vol] 6.31 ng/mL Invalid Interpretation Code 0.00 - 4.00 ng/mL AO ADM SS Protein [Mass/Vol] 7.8 G/dL Invalid Interpretation Code 6.4 - 8.2 G/dL AO ADM SS Sodium [Moles/Vol] 137 mmol/L Invalid Interpretation Code 136 - 145 mmol/L AO ADM SS Urea nitrogen [Mass/Vol] 15 mg/dL Invalid Interpretation Code 7 - 18 mg/dL AO ADM SS Urea nitrogen/Creatinine [Mass ratio] 10 ratio Invalid Interpretation Code 7 - 27 ratio AO ADM SS PSAon 08-07-2023 Prostate Specific Antigen 6.31 ng/mL High 0.00-4.00 [facility] ([place]) Comment on above: Performed By: #### C MP, PSA, GFR #### [id number] [place], [place] [address] No Panel InformationOrdered By: Lucio Friend on 03-28-2023 CA 19-9 Antigen 8 U/mL 0-35 [facility] Comment on above: [employer] El ectrochemiluminescence Immunoassay(ECLIA)Values obtained with different assay methods or kits cannotbe used interchangeably. Results cannot be interpreted asabsolute evidence of the presence or absence of malignantdisease.Performed at: [address] [id number] Director: Angel Ortiz PhD, Phone: [phone] Absolute lymphocyte countOrd ered By: Yvon Fox on 11-05-2022 Lymphocytes Auto (Unsp spec) [#/Vol] 2.03 10*3/uL 0.83-4.51 [facility] Basophil percentageOrdered B y: Yvon Fox on 11-05-2022 Basophils/100 WBC (Bld) 0.6 % 0-1 [facility] Chloride [Moles/Vol] 107 mmol/L 98-107 [facility] Eosinophils/100 WBC (Bld) 2.3 % 0-5 [facility] Glucose [Mass/Vol] 113 mg/dL 74-106 [facility] Comment on above: Fasting Glucose resu lt from 100 to 125 mg/dL suggests IMPAIRED HOMEOSTASIS per A.D.A. criteria. Neutrophils (Bld) [#/Vol] 4.1 10*3/uL 2.0-7.7 [facility] Neutrophils/100 WBC (Bld) 58.9 % 47-70 [facility] Potassium [Moles/Vol] 3.7 mmol/L 3.5-5.1 [facility] Sodium [Moles/Vol] 140 mmol/L 136-145 [facility] WBC (Bld) [#/Vol] 6.9 10*3/uL 4.4-11.0 [facility] Blood erythrocytes count (nu mber/volume)Ordered By: Yvon Fox on 11-05-2022 RBC (Bld) [#/Vol] 5.03 10*6/uL 4.6-6.2 [facility] Blood hemoglobin measurement (mass/volume)Ordered By: Yvon Fox on 11-05-2022 Hemoglobin (Bld) [Mass/Vol] 15.1 g/dL 13.0-16.5 [facility] Blood lymphocytes/100 leukoc ytesOrdered By: Yvon Fox on 11-05-2022 Lymphocytes/100 WBC (Bld) 29.3 % 19-41 [facility] Blood monocytes/100 leukocyt esOrdered By: Yvon Fox on 11-05-2022 Monocytes/100 WBC (Bld) 8.6 % 0-10 [facility] Blood platelet mean volumeOr dered By: Yvon Fox on 11-05-2022 Platelet mean volume (Bld) [Entitic vol] 9.5 fL 6.2-12.0 [facility] Determination of erythrocyte mean corpuscular volume (MCV)Ordered By: Yvon Fox on 11-05-2022 MCV (RBC) [Entitic vol] 87.1 fL 80-94 [facility] Hematocrit Auto (Bld) [Volum e fraction]Ordered By: Yvno Fox on 11-05-2022 Hematocrit (Bld) [Volume fraction] 43.8 % 40-54 [facility] Laboratory - Chemistry and C hemistry - challengeOrdered By: Yvon Fox on 11-05-2022 CO2 [Moles/Vol] 28.0 mmol/L 21.0-32.0 [facility] Urea nitrogen/Creatinine [Mass ratio] 13.9 mg/mg 10-20 [facility] Laboratory - Hematology and Cell countsOrdered By: Yvon Fox on 11-05-2022 Erythrocyte distribution width (RBC) [Entitic vol] 42.4 fL 35.1-43.9 [facility] Erythrocyte distribution width (RBC) [Ratio] 13.2 % 11.6-14.6 [facility] Immature granulocytes/100 WBC (Bld) 0.300 % 0.0-0.9 [facility] Comment on above: IG% - Immature Granu locytes (promyelocytes, myelocytes and metamyelocytes) > 1% indicates that a LEFT SHIFT is Present. MCH (RBC) [Entitic mass] 30.0 pg 27.0-32.0 [facility] Nucleated RBC/100 WBC (Bld) [Ratio] 0 % 0-5 [facility] MCHC Auto (RBC) [Mass/Vol]Or dered By: Yvon Fox on 11-05-2022 MCHC (RBC) [Mass/Vol] 34.5 g/dL 32-36 [facility] No Panel InformationOrdered By: Yvon Fox on 11-05-2022 Estimated Creatinine Clearance Calc 76.50 ml/min [facility] Estimated GFR (MDRD) Amer 89 mL/min >60 [facility] Comment on above: GFR Calc Estimated GFR (MDRD) Non-Af Amer 74 mL/min >60 [facility] Comment on above: Non- GFR Calc Troponin I High Sensitivity 5 pg/mL 3.0-78.0 [facility] Comment on above: Please Note: New Lakshmi t Units and Gender Specific Reference Ranges. For more information see Policy Stat Procedure [place] High Sensitivity Troponin (TNIH) and attachments. No Panel InformationOrdered By: Becky Brian on 11-05-2022 [place] 19-9 Antigen 9 U/mL 0-35 [facility] Comment on above: [employer] El ectrochemiluminescence Immunoassay(ECLIA)Values obtained with different assay methods or kits cannotbe used interchangeably. Results cannot be interpreted asabsolute evidence of the presence or absence of malignantdisease.Performed at: [id number] Director: Agnel Ortiz PhD, Phone: [phone] [place] 19-9 Antigen Serial Monitoring Not Reportable [facility] Platelets bldOrdered By: Andre Fox on 11-05-2022 Platelets (Bld) [#/Vol] 204 10*3/uL 150-450 [facility] Serum or plasma calcium kavitha urement (mass/volume)Ordered By: Yvon Fox on 11-05-2022 Calcium [Mass/Vol] 9.0 mg/dL 8.5-10.1 [facility] Serum or plasma creatinine m easurement (mass/volume)Ordered By: Yvon Fox on 11-05-2022 Creatinine [Mass/Vol] 1.08 mg/dL 0.70-1.30 [facility] Comment on above: The validity of the calculated GFR & GFRAA in patients over 70 years has not been determined. Clinical correlation is essential. Serum or plasma urea nitroge n measurement (mass/volume)Ordered By: Yvon Fox on 11-05-2022 Urea nitrogen [Mass/Vol] 15 mg/dL 7-18 [facility] Thin prep Papanicolaou smear with manual screeningOrdered By: Yvon Fox on 11-05-2022 Thin prep Papanicolaou smear with manual screening 5 - [facility] LABORATORYOrdered By: SYSTEM SYSTEM on 10-14-2022 Albumin BCP dye [Mass/Vol] 4.5 G/dL Invalid Interpretation Code 3.4 - 4.8 G/dL AO ADM SS Albumin/Globulin [Mass ratio] 1.3 {ratio} Invalid Interpretation Code 1.1 - 2.5 ratio AO ADM SS ALP [Catalytic activity/Vol] 92 U/L Invalid Interpretation Code 40 - 135 U/L AO ADM SS ALT With P-5'-P [Catalytic activity/Vol] 35 U/L Invalid Interpretation Code 16 - 63 U/L AO ADM SS Amylase [Catalytic activity/Vol] 74 U/L Invalid Interpretation Code 25 - 115 U/L AO ADM SS AST With P-5'-P [Catalytic activity/Vol] 20 U/L Invalid Interpretation Code 10 - 40 U/L AO ADM SS Bilirubin [Mass/Vol] 0.6 mg/dL Invalid Interpretation Code 0.2 - 1.0 mg/dL AO ADM SS Calcium [Mass/Vol] 9.5 mg/dL Invalid Interpretation Code 8.4 - 10.2 mg/dL AO ADM SS Chloride [Moles/Vol] 103 mmol/L Invalid Interpretation Code 98 - 107 mmol/L AO ADM SS CO2 [Moles/Vol] 32 mmol/L Invalid Interpretation Code 23 - 31 mmol/L AO ADM SS Creatinine [Mass/Vol] 1.12 mg/dL Invalid Interpretation Code 0.70 - 1.30 mg/dL AO ADM SS Electrolyte Balance 7.0 mEq/L Invalid Interpretation Code 4.0 - 15.0 mEq/L AO ADM SS GFR 81 ml/min/1.73sqm Invalid Interpretation Code AO Chemistry S GFR Non- 67 ml/min/1.73sqm Invalid Interpretation Code AO Chemistry S Globulin 3.5 G/dL Invalid Interpretation Code AO ADM SS Glucose [Mass/Vol] 104 mg/dL Invalid Interpretation Code 80 - 115 mg/dL AO ADM SS Lipase [Catalytic activity/Vol] 126 U/L Invalid Interpretation Code 16 - 77 U/L AO ADM SS Potassium [Moles/Vol] 4.7 mmol/L Invalid Interpretation Code 3.5 - 5.1 mmol/L AO ADM SS Protein [Mass/Vol] 8.0 G/dL Invalid Interpretation Code 6.4 - 8.2 G/dL AO ADM SS Sodium [Moles/Vol] 142 mmol/L Invalid Interpretation Code 136 - 145 mmol/L AO ADM SS Urea nitrogen [Mass/Vol] 24 mg/dL Invalid Interpretation Code 7 - 18 mg/dL AO ADM SS Urea nitrogen/Creatinine [Mass ratio] 21 ratio Invalid Interpretation Code 7 - 27 ratio AO ADM SS Absolute lymphocyte counton 07-04-2022 Lymphocytes Auto (Unsp spec) [#/Vol] 1.46 10*3/uL 0.83-4.51 [facility] Work Phone: Basophil percentageon 2021 Basophils/100 WBC (Bld) 0.4 % 0-1 [facility] Work Phone: Bilirubin [Mass/Vol] 0.80 mg/dL 0.20-1.00 [facility] Work Phone: Comment on above: For patients on eltr ombopag therapy, use of Dimension [place] TBIL is not recommended. Chloride [Moles/Vol] 104 mmol/L 98-107 [facility] Work Phone: Eosinophils/100 WBC (Bld) 2.4 % 0-5 [facility] Work Phone: Glucose [Mass/Vol] 123 mg/dL 74-106 [facility] Work Phone: [phone] Comment on above: Fasting Glucose resu lt from 100 to 125 mg/dL suggests IMPAIRED HOMEOSTASIS per A.D.A. criteria. Neutrophils (Bld) [#/Vol] 5.0 10*3/uL 2.0-7.7 [facility] Work Phone: Neutrophils/100 WBC (Bld) 69.2 % 47-70 [facility] Work Phone: Potassium [Moles/Vol] 3.8 mmol/L 3.5-5.1 [facility] Work Phone: Protein [Mass/Vol] 8.3 g/dL 6.4-8.2 [facility] Work Phone: Sodium [Moles/Vol] 140 mmol/L 136-145 [facility] Work Phone: WBC (Bld) [#/Vol] 7.2 10*3/uL 4.4-11.0 [facility] Work Phone: Blood erythrocytes count (nu mber/volume)on 07-04-2022 RBC (Bld) [#/Vol] 5.46 10*6/uL 4.6-6.2 [facility] Work Phone: Blood hemoglobin measurement (mass/volume)on 07-04-2022 Hemoglobin (Bld) [Mass/Vol] 16.1 g/dL 13.0-16.5 [facility] Work Phone: Blood lymphocytes/100 leukoc yteson 07-04-2022 Lymphocytes/100 WBC (Bld) 20.4 % 19-41 [facility] Work Phone: Blood monocytes/100 leukocyt eson 07-04-2022 Monocytes/100 WBC (Bld) 7.3 % 0-10 [facility] Work Phone: Blood platelet mean volumeon 07-04-2022 Platelet mean volume (Bld) [Entitic vol] 10.2 fL 6.2-12.0 [facility] Work Phone: Determination of erythrocyte mean corpuscular volume (MCV)on 07-04-2022 MCV (RBC) [Entitic vol] 87.4 fL 80-94 [facility] Work Phone: Direct bilirubinon 2 Bilirubin.direct [Mass/Vol] 0.16 mg/dL 0.00-0.30 [facility] Work Phone: Hematocrit Auto (Bld) [Volum e fraction]on 07-04-2022 Hematocrit (Bld) [Volume fraction] 47.7 % 40-54 [facility] Work Phone: Laboratory - Chemistry and C hemistry - challengeon 07-04-2022 ALP [Catalytic activity/Vol] 76 U/L 45-117 [facility] Work Phone: ALT [Catalytic activity/Vol] 28 U/L 16-61 [facility] Work Phone: CO2 [Moles/Vol] 28.0 mmol/L 21.0-32.0 [facility] Work Phone: Globulin (S) [Mass/Vol] 4.0 g/dL 2.2-4.2 [facility] Work Phone: Lipase [Catalytic activity/Vol] 1493 U/L 73-393 [facility] Work Phone: Urea nitrogen/Creatinine [Mass ratio] 15.7 mg/mg 10-20 [facility] Work Phone: Laboratory - Hematology and Cell countson 07-04-2022 Erythrocyte distribution width (RBC) [Entitic vol] 41.7 fL 35.1-43.9 [facility] Work Phone: Erythrocyte distribution width (RBC) [Ratio] 13.1 % 11.6-14.6 [facility] Work Phone: Immature granulocytes/100 WBC (Bld) 0.300 % 0.0-0.9 [facility] Work Phone: Comment on above: IG% - Immature Granu locytes (promyelocytes, myelocytes and metamyelocytes) > 1% indicates that a LEFT SHIFT is Present. MCH (RBC) [Entitic mass] 29.5 pg 27.0-32.0 [facility] Work Phone: Nucleated RBC/100 WBC (Bld) [Ratio] 0 % 0-5 [facility] Work Phone: MCHC Auto (RBC) [Mass/Vol]on 07-04-2022 MCHC (RBC) [Mass/Vol] 33.8 g/dL 32-36 [facility] Work Phone: No Panel Informationon 07-04 Troponin I High Sensitivity 6 pg/mL 3.0-78.0 [facility] Work Phone: Comment on above: Please Note: New Lakshmi t Units and Gender Specific Reference Ranges. For more information see Policy Stat Procedure [place] High Sensitivity Troponin (TNIH) and attachments. D-Dimer Quantitative (PE/DVT) 0.34 FEU/ug/m 0.27-0.49 [facility] Work Phone: Comment on above: NORMAL D-Dimer level (<0.50) indicates no DVT or PE. Estimated Creatinine Clearance Calc 70.03 ml/min [facility] Work Phone: Estimated GFR (MDRD) Amer 83 mL/min >60 [facility] Work Phone: Comment on above: GFR Calc Estimated GFR (MDRD) Non-Af Amer 69 mL/min >60 [facility] Work Phone: Comment on above: Non- GFR Calc Platelets bldon 07-04-2022 Platelets (Bld) [#/Vol] 212 10*3/uL 150-450 [facility] Work Phone: Serum or plasma albumin kavitha urement (mass/volume)on 07-04-2022 Albumin [Mass/Vol] 4.3 g/dL 3.2-5.0 [facility] Work Phone: Serum or plasma calcium kavitha urement (mass/volume)on 07-04-2022 Calcium [Mass/Vol] 9.8 mg/dL 8.5-10.1 [facility] Work Phone: Serum or plasma creatinine m easurement (mass/volume)on 07-04-2022 Creatinine [Mass/Vol] 1.15 mg/dL 0.70-1.30 [facility] Work Phone: Comment on above: The validity of the calculated GFR & GFRAA in patients over 70 years has not been determined. Clinical correlation is essential. Serum or plasma urea nitroge n measurement (mass/volume)on 07-04-2022 Urea nitrogen [Mass/Vol] 18 mg/dL 7-18 [facility] Work Phone: Thin prep Papanicolaou smear with manual screeningon 07-04-2022 Thin prep Papanicolaou smear with manual screening 15 U/L 15-37 [facility] Work Phone: Thin prep Papanicolaou smear with manual screening 8 5-15 [facility] Work Phone: Chart Updateon 06-24-2022 Chart Update Chart Update Chart Update: I called Mr. Cheney to discuss surveillance imaging. He saw me in February of this year and plan was to repeat imaging with CT Pancreas Protocol in 3 to 6 months. He lost his insurance and is paying for all of his care out of pocket. He is therefore unable to have a CT. He did recently follow-up with Dr. Lane and had repeat blood work. His CBC, CMP and CA19-9 are all normal. His lipase and amylase were elevated, suggestive of acute pancreatitis. He continues to experience episodes of abdominal pain which he waits out at home. He believes it is linked to overeating or eating ceratin offending foods. He remains uninterested in surgical therapy. He will continue to have blood work with Dr. Lane every 3 months, per his recall. Therefore, he can follow with Dr. Lane and contact us if anything changes or if a visit is needed. Albania Forrest PA-C Surgical Oncology Signatures Electronically signed by : Albania Forrest PA-C; Jun 24 2022 9:27AM EST (Author) Normal [facility] Absolute lymphocyte counton 05-31-2022 Lymphocytes Auto (Unsp spec) [#/Vol] 1.77 10*3/uL 0.83-4.51 [facility] Work Phone: Basophil percentageon 2021 Amylase [Catalytic activity/Vol] 268 U/L 25-115 [facility] Work Phone: Basophils/100 WBC (Bld) 0.7 % 0-1 [facility] Work Phone: [phone] Bilirubin [Mass/Vol] 0.40 mg/dL 0.20-1.00 [facility] Work Phone: Comment on above: For patients on eltr ombopag therapy, use of Dimension [place] TBIL is not recommended. Chloride [Moles/Vol] 108 mmol/L 98-107 [facility] Work Phone: Eosinophils/100 WBC (Bld) 3.8 % 0-5 [facility] Work Phone: Glucose [Mass/Vol] 95 mg/dL 74-106 [facility] Work Phone: [phone] Neutrophils (Bld) [#/Vol] 4.1 10*3/uL 2.0-7.7 [facility] Work Phone: Neutrophils/100 WBC (Bld) 59.8 % 47-70 [facility] Work Phone: Potassium [Moles/Vol] 3.8 mmol/L 3.5-5.1 [facility] Work Phone: Protein [Mass/Vol] 7.2 g/dL 6.4-8.2 [facility] Work Phone: Sodium [Moles/Vol] 140 mmol/L 136-145 [facility] Work Phone: [phone] Triglyceride [Mass/Vol] 116 mg/dL <199 [facility] Work Phone: Comment on above: The drugs N-Acetylcy steine and Metamizole may falsely depress this assay.Serum Triglycerides Reference Interval Normal <150 mg/dL Borderline high 150 - 199 mg/dL High 200 - 499 mg/dL Very High > or = 500 mg/dL WBC (Bld) [#/Vol] 6.9 10*3/uL 4.4-11.0 [facility] Work Phone: Blood erythrocytes count (nu mber/volume)on 05-31-2022 RBC (Bld) [#/Vol] 4.75 10*6/uL 4.6-6.2 [facility] Work Phone: Blood hemoglobin measurement (mass/volume)on 05-31-2022 Hemoglobin (Bld) [Mass/Vol] 14.0 g/dL 13.0-16.5 [facility] Work Phone: [phone] Blood lymphocytes/100 leukoc yteson 05-31-2022 Lymphocytes/100 WBC (Bld) 25.8 % 19-41 [facility] Work Phone: Blood monocytes/100 leukocyt eson 05-31-2022 Monocytes/100 WBC (Bld) 9.6 % 0-10 [facility] Work Phone: Blood platelet mean volumeon 05-31-2022 Platelet mean volume (Bld) [Entitic vol] 10.4 fL 6.2-12.0 [facility] Work Phone: Cholesterol in LDL Direct as say [Mass/Vol]on 05-31-2022 Cholesterol in LDL [Mass/Vol] 115 mg/dL 0-99 [facility] Work Phone: Determination of erythrocyte mean corpuscular volume (MCV)on 05-31-2022 MCV (RBC) [Entitic vol] 88.6 fL 80-94 [facility] Work Phone: Hematocrit Auto (Bld) [Volum e fraction]on 05-31-2022 Hematocrit (Bld) [Volume fraction] 42.1 % 40-54 [facility] Work Phone: Laboratory - Chemistry and C hemistry - challengeon 05-31-2022 ALP [Catalytic activity/Vol] 76 U/L 45-117 [facility] Work Phone: ALT [Catalytic activity/Vol] 24 U/L 16-61 [facility] Work Phone: CO2 [Moles/Vol] 29.0 mmol/L 21.0-32.0 [facility] Work Phone: Globulin (S) [Mass/Vol] 3.2 g/dL 2.2-4.2 [facility] Work Phone: Lipase [Catalytic activity/Vol] 2408 U/L 73-393 [facility] Work Phone: Urea nitrogen/Creatinine [Mass ratio] 15.2 mg/mg 10-20 [facility] Work Phone: Laboratory - Hematology and Cell countson 05-31-2022 Erythrocyte distribution width (RBC) [Entitic vol] 42.3 fL 35.1-43.9 [facility] Work Phone: Erythrocyte distribution width (RBC) [Ratio] 13.0 % 11.6-14.6 [facility] Work Phone: Immature granulocytes/100 WBC (Bld) 0.300 % 0.0-0.9 [facility] Work Phone: Comment on above: IG% - Immature Granu locytes (promyelocytes, myelocytes and metamyelocytes) > 1% indicates that a LEFT SHIFT is Present. MCH (RBC) [Entitic mass] 29.5 pg 27.0-32.0 [facility] Work Phone: Nucleated RBC/100 WBC (Bld) [Ratio] 0 % 0-5 [facility] Work Phone: Laboratory - Miscellaneous t estson 05-31-2022 Service comment (Unsp spec) [Interp] TNP [facility] Work Phone: Comment on above: Test not performed MCHC Auto (RBC) [Mass/Vol]on 05-31-2022 MCHC (RBC) [Mass/Vol] 33.3 g/dL 32-36 [facility] Work Phone: No Panel Informationon 05-31 CA 19-9 Antigen 9 U/mL 0-35 [facility] Work Phone: Comment on above: [facility] El ectrochemiluminescence Immunoassay(ECLIA)Values obtained with different assay methods or kits cannotbe used interchangeably. Results cannot be interpreted asabsolute evidence of the presence or absence of malignantdisease.Performed at: [facility] [id number] Director: Angel Ortiz PhD, Phone: [phone] CA 19-9 Antigen Serial Monitoring Not Reportable [facility] Work Phone: Estimated GFR (MDRD) Amer 92 mL/min >60 [facility] Work Phone: Comment on above: GFR Calc Estimated GFR (MDRD) Non-Af Amer 76 mL/min >60 [facility] Work Phone: Comment on above: Non- GFR Calc Platelets bldon 05-31-2022 Platelets (Bld) [#/Vol] 213 10*3/uL 150-450 [facility] Work Phone: Serum or plasma albumin kavitha urement (mass/volume)on 05-31-2022 Albumin [Mass/Vol] 4.0 g/dL 3.2-5.0 [facility] Work Phone: Serum or plasma albumin/glob ulin mass ratioon 05-31-2022 Albumin/Globulin [Mass ratio] 1.2 {ratio} 0.9-2.4 [facility] Work Phone: Serum or plasma calcium kavitha urement (mass/volume)on 05-31-2022 Calcium [Mass/Vol] 8.6 mg/dL 8.5-10.1 [facility] Work Phone: Serum or plasma creatinine m easurement (mass/volume)on 05-31-2022 Creatinine [Mass/Vol] 1.05 mg/dL 0.70-1.30 [facility] Work Phone: Comment on above: The validity of the calculated GFR & GFRAA in patients over 70 years has not been determined. Clinical correlation is essential. Serum or plasma urea nitroge n measurement (mass/volume)on 05-31-2022 Urea nitrogen [Mass/Vol] 16 mg/dL 7-18 [facility] Work Phone: Thin prep Papanicolaou smear with manual screeningon 05-31-2022 Thin prep Papanicolaou smear with manual screening 16 U/L 15-37 [facility] Work Phone: Thin prep Papanicolaou smear with manual screening 3 5-15 [facility] Work Phone: Thin prep Papanicolaou smear with manual screening 178 U/L 87-241 [facility] Work Phone: Blood Pressure Cuff Sizeon 0 03-18-2022 Tobacco use status CPHS b) No [facility] Work Phone: Blood Pressure Cuff Size Adult [facility] Work Phone: Office Visiton 03-18-2022 Follow-up visit Diagnoses/Problems Chronic pancreatitis (577.1) (K86.1) Pancreatic mass (577.8) (K86.89) Provider Impressions Mr. Cheney is a 61-year-old male who is referred by Dr. Lane ([facility]) to discuss surgical options for recurrent acute on chronic pancreatitis. 1. Recurrent acute on chronic pancreatitis 2. History of biliary stricture s/p ERCP with negative cytology, related to 1 3. Pancreatic head mass s/p EUS-FNA/FNB, no malignant cells, likely inflammatory/fibrotic changes 4. Exocrine pancreas insufficiency, on PERT PLAN: He is feeling well today and denies chronic abdominal pain. He has been experiencing episodes of recurrent acute pancreatitis every 2 to 3 months, per his recall. At this time, he is not interested in pursuing surgical intervention though we did discuss potential surgical options including Whipple procedure (given biliary stricture and pseudomass in the HOP) versus total pancreatectomy. I discussed that if pursued, surgery would be difficult considering the occlusion of the SMV. His main concern overall is pancreatic cancer. I reviewed his recent imaging, procedures, cytology and pathology with him in detail. There is no evidence of cancer though would remain diligent to exclude this considering his history. I recommend repeat imaging in 3 to 6 months, preferably with CT Pancreas Protocol (can also obtained repeat CA19-9 then). Hopefully, the contrast shortage will no longer be an issue. I will remind him when he is due for this and review at weekly multi-D pancreas conference. Albania Forrest PA-C. Chief Complaint Follow-up, to discuss surgery for recurrent acute on chronic pancreatitis. History of Present IllnessMr. Cheney is a 61-year-old male who is referred by Dr. Lane ([facility]) to discuss surgical options for recurrent acute on chronic pancreatitis. Patient reports recurrent episodes of acute pancreatitis starting 3 years ago. At that time, he was hospitalized in [place] and required care in the ICU. He indicates that at that time, he was drinking moderately and smoking tobacco. He quit both following that hospitalization and eventually had a laparoscopic cholecystectomy. He saw Dr. Torres in clinic in 2019 to discuss surgical options. At that time, he was feeling well and surgery was not indicated. He was also noted to have occlusion of the SMV making surgery high-risk. Today, he states he has been experiencing episodes of acute pancreatitis every few months. He relates these episodes to his diet (eating too much). During an episode, he will experience severe pressure-like epigastric pain with radiation to his back. He was last in the ED for acute pancreatitis in late January. He was not admitted. His last hospitalization for acute pancreatitis was in November 2021. MRCP showed a dilated CBD, dilated PD and an ill-defined mass in the HOP. He underwent ERCP that demonstrated a biliary stricture s/p biliary sphincterotomy, dilation and sweep. He states a biliary stent was unable to be placed. Cytology was negative for malignant cells. CA19-9 was normal at 3. In December, he underwent EUS with Dr. Nia Arroyo. This demonstrated CBD of 9 mm without stricture/stones/sludge, parenchymal changes related to chronic pancreatitis with irregular PD and a round inflammatory mass-like region in the HOP measuring 32 mm x 25 mm s/p biopsy. Cytology showed no malignant cells, biopsies with parenchymal tissue with no significant pathology findings. Today, he feels well. He is not in pain. He denies chronic abdominal pain, nausea, vomiting or unintentional weight loss. He is taking Creon, 3 capsules with each meal. Past medical history: Recurrent acute on chronic pancreatitis. He is not diabetic. Surgical history: Lap CCY, appendectomy. Family history: No GI malignancies. Mother had brain cancer. Social history: Former smoker. Abstinent from alcohol. No illicits. Review of Systems 10-point review of systems negative unless otherwise specific above in HPI. 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) Pancreatic mass (577.8) (K86.89) Allergies amoxicillin Recorded By: Alice Palafox; 09/18/2020 9:14:58 AM Augmentin Recorded By: Alice Palafox; 09/18/2020 9:14:58 AM meloxicam Recorded By: Alice Palafox; 09/18/2020 9:14:58 AM Stromectol Recorded By: Alice Palafox; 09/18/2020 9:14:58 AM Current Meds Medication NameInstruction Cholestyramine 4 GM Oral Packetuse one PACKET TWICE DAILY Creon [id number] UNIT Oral Capsule Delayed Release ParticlesTAKE 6 CAPSULES BY MOUTH FOUR TIMES DAILY Creon [id number] UNIT Oral Capsule Delayed Release ParticlesTAKE 2 CAPSULES WITH MEALS and TAKE 1 CAPSULE WITH snacks Famotidine 40 MG Oral TabletTAKE 1/2 (ONE-HALF) OF A TABLET BY MOUTH TWICE DAILY LORazepam 0.5 MG Oral TabletTAKE 1 TABLET TWICE DAILY NEEDED FOR ANXIETY Omeprazole 40 MG Oral Capsule Delayed ReleaseTAKE 1 CAPSULE EVERY DAY. May use this (more content not included)... Normal [facility] Absolute lymphocyte counton 02-13-2022 Lymphocytes Auto (Unsp spec) [#/Vol] 1.64 10*3/uL 0.83-4.51 [facility] Work Phone: Basophil percentageon 2021 Basophils/100 WBC (Bld) 0.4 % 0-1 [facility] Work Phone: Bilirubin [Mass/Vol] 0.40 mg/dL 0.20-1.00 [facility] Work Phone: Comment on above: For patients on eltr ombopag therapy, use of Dimension [place] TBIL is not recommended. Chloride [Moles/Vol] 105 mmol/L 98-107 [facility] Work Phone: Eosinophils/100 WBC (Bld) 1.0 % 0-5 [facility] Work Phone: Glucose [Mass/Vol] 133 mg/dL 74-106 [facility] Work Phone: Comment on above: Fasting Glucose resu lt greater than or equal to 126 mg/dL suggests DIABETES MELLITUS per A.D.A. criteria. Neutrophils (Bld) [#/Vol] 6.0 10*3/uL 2.0-7.7 [facility] Work Phone: Neutrophils/100 WBC (Bld) 71.5 % 47-70 [facility] Work Phone: Potassium [Moles/Vol] 5.3 mmol/L 3.5-5.1 [facility] Work Phone: [phone] Comment on above: Moderate Hemolysis, Result may be falsely increased. Protein [Mass/Vol] 7.7 g/dL 6.4-8.2 [facility] Work Phone: Sodium [Moles/Vol] 139 mmol/L 136-145 [facility] Work Phone: WBC (Bld) [#/Vol] 8.4 10*3/uL 4.4-11.0 [facility] Work Phone: Blood erythrocytes count (nu mber/volume)on 02-13-2022 RBC (Bld) [#/Vol] 5.07 10*6/uL 4.6-6.2 [facility] Work Phone: Blood hemoglobin measurement (mass/volume)on 02-13-2022 Hemoglobin (Bld) [Mass/Vol] 15.1 g/dL 13.0-16.5 [facility] Work Phone: Blood lymphocytes/100 leukoc yteson 02-13-2022 Lymphocytes/100 WBC (Bld) 19.6 % 19-41 [facility] Work Phone: [phone] Blood monocytes/100 leukocyt eson 02-13-2022 Monocytes/100 WBC (Bld) 7.4 % 0-10 [facility] Work Phone: Blood platelet adequacy dete ction by light microscopyon 02-13-2022 Platelets LM Ql (Bld) ADEQUATE ADEQ [facility] Work Phone: Blood platelet mean volumeon 02-13-2022 Platelet mean volume (Bld) [Entitic vol] 10.1 fL 6.2-12.0 [facility] Work Phone: Determination of erythrocyte mean corpuscular volume (MCV)on 02-13-2022 MCV (RBC) [Entitic vol] 87.2 fL 80-94 [facility] Work Phone: [phone] Direct bilirubinon 2 Bilirubin.direct [Mass/Vol] mg/dL 0.00-0.30 [facility] Work Phone: Hematocrit Auto (Bld) [Volum e fraction]on 02-13-2022 Hematocrit (Bld) [Volume fraction] 44.2 % 40-54 [facility] Work Phone: Laboratory - Chemistry and C hemistry - challengeon 02-13-2022 ALP [Catalytic activity/Vol] 84 U/L 45-117 [facility] Work Phone: ALT [Catalytic activity/Vol] 32 U/L 16-61 [facility] Work Phone: CO2 [Moles/Vol] 30.0 mmol/L 21.0-32.0 [facility] Work Phone: Globulin (S) [Mass/Vol] 3.8 g/dL 2.2-4.2 [facility] Work Phone: Lipase [Catalytic activity/Vol] 3099 U/L 73-393 [facility] Work Phone: Urea nitrogen/Creatinine [Mass ratio] 18.1 mg/mg 10-20 [facility] Work Phone: Laboratory - Hematology and Cell countson 02-13-2022 Erythrocyte distribution width (RBC) [Entitic vol] 39.7 fL 35.1-43.9 [facility] Work Phone: Erythrocyte distribution width (RBC) [Ratio] 12.5 % 11.6-14.6 [facility] Work Phone: Immature granulocytes/100 WBC (Bld) 0.100 % 0.0-0.9 [facility] Work Phone: Comment on above: IG% - Immature Granu locytes (promyelocytes, myelocytes and metamyelocytes) > 1% indicates that a LEFT SHIFT is Present. MCH (RBC) [Entitic mass] 29.8 pg 27.0-32.0 [facility] Work Phone: Nucleated RBC/100 WBC (Bld) [Ratio] 0 % 0-5 [facility] Work Phone: MCHC Auto (RBC) [Mass/Vol]on 02-13-2022 MCHC (RBC) [Mass/Vol] 34.2 g/dL 32-36 [facility] Work Phone: No Panel Informationon 02-13 Estimated Creatinine Clearance Calc 78.21 ml/min [facility] Work Phone: Estimated GFR (MDRD) Amer 92 mL/min >60 [facility] Work Phone: Comment on above: GFR Calc Estimated GFR (MDRD) Non-Af Amer 76 mL/min >60 [facility] Work Phone: Comment on above: Non- GFR Calc Platelets bldon 02-13-2022 Platelets (Bld) [#/Vol] 197 10*3/uL 150-450 [facility] Work Phone: RBC morphologyon 02-13-2022 RBC morphology finding Nom (Bld) NORM C+C NORMAL NORM C&C [facility] Work Phone: Serum or plasma albumin kavitha urement (mass/volume)on 02-13-2022 Albumin [Mass/Vol] 3.9 g/dL 3.2-5.0 [facility] Work Phone: Serum or plasma calcium kavitha urement (mass/volume)on 02-13-2022 Calcium [Mass/Vol] 9.0 mg/dL 8.5-10.1 [facility] Work Phone: Serum or plasma creatinine m easurement (mass/volume)on 02-13-2022 Creatinine [Mass/Vol] 1.05 mg/dL 0.70-1.30 [facility] Work Phone: Comment on above: The validity of the calculated GFR & GFRAA in patients over 70 years has not been determined. Clinical correlation is essential. Serum or plasma urea nitroge n measurement (mass/volume)on 02-13-2022 Urea nitrogen [Mass/Vol] 19 mg/dL 7-18 [facility] Work Phone: Thin prep Papanicolaou smear with manual screeningon 02-13-2022 Thin prep Papanicolaou smear with manual screening 53 U/L 15-37 [facility] Work Phone: Comment on above: Moderate Hemolysis, Result may be falsely increased. Thin prep Papanicolaou smear with manual screening 4 5-15 [facility] Work Phone: [facility] Cytologyon 01-24-2022 [facility] Cytology Patient Name CHLOE CHENEY Date of Procedure: 01/24/2022 Date Reported: 01/28/2022 Date Received: 01/24/2022 Date of / Sex 1960 (Age: 61) / M Race: WHITE Submitting Physician: NIA ARROYO MD Attending Physician: LUCIO LANE Other External # FINAL CYTOLOGICAL INTERPRETATION A. HEAD OF PANCREAS, FINE-NEEDLE ASPIRATION, CYTOLOGY AND CELL BLOCK: --NO MALIGNANT CELLS IDENTIFIED, SEE NOTE. Note: The specimen contains predominantly degenerated cellular debris and clusters of GI contaminants. The cellblock section is noncontributory due to paucicellularity. Please see concurrent surgical specimen ([id number]). Slide(s) initially screened by a College Director at [facility], [address] [place] [address] Electronically Signed Out By REKHA PRABHAKAR MD, PhD By the signature on this report, the individual or group listed as making the Final Interpretation/Diagnosis certifies that they have reviewed this case. 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 FINE NEEDLE ASPIRATION HEAD OF PANCREAS: RECEIVED 30cc OF PINK CLEAR NEEDLE RINSE IN CYTOLYT WITH PARTICLES. [facility] Department of Pathology [address] [place] [address] Normal [facility] Comment on above: Performed By: #### A LONG TERM #### [facility] Cytology [address] [place] [address] Surgical Pathology Dep artmenton 01-24-2022 [facility] Surgical Pathology Department Name CHLOE CHENEY Pathologist: HARRY QUIÑONEZ MD Date of Procedure: 01/24/2022 Date Received: 01/24/2022 Date Reported 01/25/2022 Submitting Physician: NIA ARROYO MD Location: [facility] Copy To/Referring/Attending: LUCIO LANE Other External # FINAL DIAGNOSIS A. PANCREATIC HEAD - FNA SHARK CORE: --SCANT FRAGMENTS OF PANCREATIC PARENCHYMAL TISSUE WITH NO SIGNIFICANT PATHOLOGICAL FINDINGS. Electronically Signed Out By HARRY QUIÑONEZ MD/RFA By the signature on this report, the individual or group listed as making the Final Interpretation/Diagnosis certifies that they have reviewed this case. Clinical History: suspected mass in pancreas on MRI Specimens Submitted As: A: PANCREATIC HEAD - FNA SHARK CORE Gross Description: Received in formalin, labeled with the patient?s name and hospital number and pancreas head, are multiple minute red, soft tissue fragments aggregating to 0.7 x 0.5 x 0.1 cm. The specimen is submitted in toto in one cassette. RCC rcc/01/24/[address] [facility] Department of Pathology [address] [place] [address] Normal [facility] Comment on above: Performed By: #### A #### [facility] Surgical Pathology Department [address] [place] [address] Order Reconciliationon 01-24 Order Reconciliation Page 1 Discharge Reconciliation Document Reconciliation Type: Discharge requested on behalf of Nia Arroyo (Physician) done by Nia Arroyo) Discharge - Reconciliation: 24-Jan-2022 12:05 by: Nia Arroyo) Home Medications EnteredHOME MEDICATIONS AT DISCHARGE DateReconciliation Comment/ Additional Information Creon 12,000 units oral delayed release capsule 3 tab(s) orally 3 times a day (before meals) 18-Jan-2022 14:04 Creon 12,000 units oral delayed release capsule 3 tab(s) orally 3 times a day (before meals) 18-Jan-2022 14:04 Creon 12,000 units oral delayed release capsule is continued as Creon 12,000 units oral delayed release capsule omeprazole 40 mg oral delayed release capsule 1 cap(s) orally once a day 18-Jan-2022 14:01 omeprazole 40 mg oral delayed release capsule 1 cap(s) orally once a day 18-Jan-2022 14:01 omeprazole 40 mg oral delayed release capsule is continued as omeprazole 40 mg oral delayed release capsule Tylenol 325 mg oral tablet 325 milligram(s) orally once a day, As Needed 24-Jan-2022 10:18 Tylenol 325 mg oral tablet 325 milligram(s) orally once a day, As Needed 24-Jan-2022 10:18 Tylenol 325 mg oral tablet is continued as Tylenol 325 mg oral tablet Zoloft 50 mg oral tablet 1 tab(s) orally once a day 18-Jan-2022 14:02 Zoloft 50 mg oral tablet 1 tab(s) orally once a day 18-Jan-2022 14:02 Zoloft 50 mg oral tablet is continued as Zoloft 50 mg oral tablet All Active Home Medications at time of Discharge Reconciliation: 24-Jan-2022 12:05 Creon 12,000 units oral delayed release capsule 3 tab(s) orally 3 times a day (before meals) omeprazole 40 mg oral delayed release capsule 1 cap(s) orally once a day Tylenol 325 mg oral tablet 325 milligram(s) orally once a day, As Needed Zoloft 50 mg oral tablet 1 tab(s) orally once a day Normal [facility] Upper EUSon 01-24-2022 Upper EUS PATIENTNAME Patient Name: Chloe Cheney EXAMDATE Procedure Date: 01/24/2022 9:08 AM PATIENTID PATIENTACCOUNTNUM PATIENTDOB Date of : 1960 PATIENTROOM Site: [facility] Procedure Room 5 ETHNICITY Ethnicity: Not or RACE Race: White PROVDR Attending MD: Nia Arroyo MD ENDOPROCEDURENAME Procedure: Upper EUS INDICATION Indications: Suspected mass in pancreas on MRI, Chronic recurrent pancreatitis PTPROFILE Patient Profile: This is a 61 year old male. Refer to note in patient chart for documentation of history and physical. PRIMARYPROVIDER Providers: Nia Arroyo MD (Doctor) Gastroenterology, Lacey Santacruz RN (Nurse) , Mallory Wilde RN (Nurse) , Dona Estes, RN (Nurse) EDREFPROVIDER Referring MD: Lucio Lane CURRENT_MEDS Medicines: Monitored Anesthesia Care COMPLIC Complications: No immediate complications. ENDOPROCEDURETEXT Procedure: Pre-Anesthesia Assessment: - Prior to the procedure, a History and Physical was performed, and patient medications and allergies were reviewed. The patient is competent. The risks and benefits of the procedure and the sedation options and risks were discussed with the patient. All questions were answered and informed consent was obtained. Patient identification and proposed procedure were verified by the physician, the nurse and the concrete tile machine operator in the procedure room. Mental Status Examination: alert and oriented. Airway Examination: normal oropharyngeal airway and neck mobility. Respiratory Examination: clear to auscultation. CV Examination: normal. Prophylactic Antibiotics: The patient does not require prophylactic antibiotics. Prior Anticoagulants: The patient has taken no anticoagulant or antiplatelet agents. ASA Grade Assessment: II - A patient with mild systemic disease. After reviewing the risks and benefits, the patient was deemed in satisfactory condition to undergo the procedure. The anesthesia plan was to use monitored anesthesia care (MAC). Immediately prior to administration of medications, the patient was re-assessed for adequacy to receive sedatives. The heart rate, respiratory rate, oxygen saturations, blood pressure, adequacy of pulmonary ventilation, and response to care were monitored throughout the procedure. The physical status of the patient was re-assessed after the procedure. After obtaining informed consent, the endoscope was passed under direct vision. Throughout the procedure, the patient's blood pressure, pulse, and oxygen saturations were monitored continuously. The linear ultrasound endoscope was introduced through the mouth, and advanced to the duodenum for ultrasound examination from the stomach and duodenum. The endoscope was introduced through the mouth, and advanced to the second part of duodenum. The upper EUS was accomplished without difficulty. The patient tolerated the procedure well. FINDING Findings: ENDOSCOPIC FINDING: : The examined esophagus was normal. The Z-line was found 41 cm from the incisors. The entire examined stomach was normal. The ampulla and examined duodenum were normal. ENDOSONOGRAPHIC FINDING: : There was dilation in the common bile duct which measured up to 9 mm. Endosonographic imaging in the common bile duct showed no stones, sludge or stricture. Pancreatic parenchymal abnormalities were noted in the entire pancreas. These consisted of hyperechoic strands, hyperechoic foci and lobularity. The pancreatic duct had a dilated endosonographic appearance, had a tortuous/ectatic appearance and had hyperechoic valle in the main pancreatic duct. The pancreatic duct measured up to 5 mm in diameter. A round inflammatory mass-like region was identified in the pancreatic head. This hypoechoic, heterogenous and lobulated. This region measured 32 mm x 25 mm in maximal cross-sectional diameter. The endosonographic borders were well-defined. An intact interface was seen between the mass and the adjacent structures suggesting a lack of invasion. Fine needle biopsy was performed. Color Doppler imaging was utilized prior to needle puncture to confirm a lack of significant vascular structures within the needle path. Two passes were made with the 22 gauge Luma.io biopsy needle using a transduodenal approach. A visible core of tissue was obtained. Preliminary cytologic examination and touch preps were not performed. Final cytology results are pending. EBL Estimated Blood Loss: Estimated blood loss: none. IMPRESS Impression: EGD: - Normal esophagus. - Z-line, 41 cm from the incisors. - Normal stomach. - Normal ampulla and examined duodenum. EUS: - There was dilation in the common bile duct which measured up to 9 mm. - Pancreatic parenchymal abnormalities consisting of hyperechoic strands, hyperechoic foci and lobularity were noted in (more content not included)... Normal [facility] LABORATORYOrdered By: Keri Tate on 01-21-2022 ADMITTED TO INTENSIVE CARE UNIT FOR CONDITION OF INTEREST:FIND:PT:^BLAKE ENT:ORD: No (01/21/22 12:00 PM) Invalid Interpretation Code AO Auto Urine SS EMPLOYED IN A HEALTHCARE SETTING:FIND:PT:^PATIE NT:ORD: No (01/21/22 12:00 PM) Invalid Interpretation Code AO Auto Urine SS FIRST TEST FOR CONDITION OF INTEREST:FIND:PT:^BLAKE ENT:ORD: Unknown (01/21/22 12:00 PM) Invalid Interpretation Code AO Auto Urine SS HAS SYMPTOMS RELATED TO CONDITION OF INTEREST:FIND:PT:^BLAKE ENT:ORD: No (01/21/22 12:00 PM) Invalid Interpretation Code AO Auto Urine SS Illness or injury onset date and time [id number] Invalid Interpretation Code AO Auto Urine SS Patient was hospitalized because of this condition No (01/21/22 12:00 PM) Invalid Interpretation Code AO Auto Urine SS status Not (3/28/22 12:00 PM) Invalid Interpretation Code AO Auto Urine SS RESIDES IN A CONGREGATE CARE SETTING:FIND:PT:^IZZY NT:ORD: No (01/21/22 12:00 PM) Invalid Interpretation Code AO Auto Urine SS SARS-CoV-2 (COVID-19) RNA HARRY+probe Ql (Resp) Negative (01/21/22 12:00 PM) Invalid Interpretation Code Negative AO Auto Urine SS SARS-CoV-2 (COVID-19) RNA HARRY+probe Ql (Unsp spec) Negative results do not preclude SARS-CoV-2 infection and should not be used as the sole basis for patient management decisions. Negative results must be combined with clinical observations, patient history, and epidemiological information.There is a risk of false negative values resulting from improperly collected, transported, or handled specimens.There is a risk of false negative values due to the presence of sequence variants in the pathogen targets of the assay, procedural errors, amplification inhibitors in specimens, or inadequate numbers of organisms for amplification.TOMÁS SARS-CoV-2 Assay is a Real-Time reverse-transcriptase polymerase chain reaction (RT-PCR) based qualitative in vitro diagnostic test intended for the qualitative detection of nucleic acid from the SARS-CoV-2 in nasopharyngeal swab specimens collected from individuals suspected of COVID-19 by their healthcare provider. Testing is limited to laboratories certified under the Clinical Laboratory Improvement Amendments of 1988 (CLIA), 42 U.S.C. 263a, to perform moderate and high complexity tests. Invalid Interpretation Code AO Auto Urine SS Absolute lymphocyte counton 12-20-2021 Lymphocytes Auto (Unsp spec) [#/Vol] 0.69 10*3/uL 0.83-4.51 [facility] Work Phone: Basophil percentageon 2021 Basophils/100 WBC (Bld) 0.4 % 0-1 [facility] Work Phone: Bilirubin [Mass/Vol] 0.80 mg/dL 0.20-1.00 [facility] Work Phone: Comment on above: For patients on eltr ombopag therapy, use of Dimension [place] TBIL is not recommended. Chloride [Moles/Vol] 110 mmol/L 98-107 [facility] Work Phone: Eosinophils/100 WBC (Bld) 0.6 % 0-5 [facility] Work Phone: Glucose [Mass/Vol] 78 mg/dL 74-106 [facility] Work Phone: Neutrophils (Bld) [#/Vol] 6.7 10*3/uL 2.0-7.7 [facility] Work Phone: Neutrophils/100 WBC (Bld) 82.6 % 47-70 [facility] Work Phone: Potassium [Moles/Vol] 3.9 mmol/L 3.5-5.1 [facility] Work [facility]: Protein [Mass/Vol] 6.8 g/dL 6.4-8.2 [facility] Work Phone: Sodium [Moles/Vol] 139 mmol/L 136-145 [facility] Work Phone: WBC (Bld) [#/Vol] 8.1 10*3/uL 4.4-11.0 [facility] Work Phone: [phone] Blood erythrocytes count (nu mber/volume)on 12-20-2021 RBC (Bld) [#/Vol] 4.93 10*6/uL 4.6-6.2 [facility] Work Phone: Blood hemoglobin measurement (mass/volume)on 12-20-2021 Hemoglobin (Bld) [Mass/Vol] 14.9 g/dL 13.0-16.5 [facility] Work Phone: Blood lymphocytes/100 leukoc yteson 12-20-2021 Lymphocytes/100 WBC (Bld) 8.5 % 19-41 [facility] Work Phone: Blood monocytes/100 leukocyt eson 12-20-2021 Monocytes/100 WBC (Bld) 7.7 % 0-10 [facility] Work Phone: Blood platelet mean volumeon 12-20-2021 Platelet mean volume (Bld) [Entitic vol] 10.2 fL 6.2-12.0 [facility] Work Phone: Determination of erythrocyte mean corpuscular volume (MCV)on 12-20-2021 MCV (RBC) [Entitic vol] 87.0 fL 80-94 [facility] Work Phone: Hematocrit Auto (Bld) [Volum e fraction]on 12-20-2021 Hematocrit (Bld) [Volume fraction] 42.9 % 40-54 [facility] Work Phone: Laboratory - Chemistry and C hemistry - challengeon 12-20-2021 ALP [Catalytic activity/Vol] 74 U/L 45-117 [facility] Work Phone: ALT [Catalytic activity/Vol] 29 U/L 16-61 [facility] Work Phone: CO2 [Moles/Vol] 20.0 mmol/L 21.0-32.0 [facility] Work Phone: Globulin (S) [Mass/Vol] 3.2 g/dL 2.2-4.2 [facility] Work Phone: Urea nitrogen/Creatinine [Mass ratio] 17.0 mg/mg 10-20 [facility] Work Phone: Laboratory - Hematology and Cell countson 12-20-2021 Erythrocyte distribution width (RBC) [Entitic vol] 39.2 fL 35.1-43.9 [facility] Work Phone: Erythrocyte distribution width (RBC) [Ratio] 12.3 % 11.6-14.6 [facility] Work Phone: Immature granulocytes/100 WBC (Bld) 0.200 % 0.0-0.9 [facility] Work Phone: Comment on above: IG% - Immature Granu locytes (promyelocytes, myelocytes and metamyelocytes) > 1% indicates that a LEFT SHIFT is Present. MCH (RBC) [Entitic mass] 30.2 pg 27.0-32.0 [facility] Work Phone: Nucleated RBC/100 WBC (Bld) [Ratio] 0 % 0-5 [facility] Work Phone: MCHC Auto (RBC) [Mass/Vol]on 12-20-2021 MCHC (RBC) [Mass/Vol] 34.7 g/dL 32-36 [facility] Work Phone: No Panel Informationon 12-20 Estimated Creatinine Clearance Calc 90.02 ml/min [facility] Work Phone: Estimated GFR (MDRD) Amer 113 mL/min >60 [facility] Work Phone: Comment on above: GFR Calc Estimated GFR (MDRD) Non-Af Amer 94 mL/min >60 [facility] Work Phone: Comment on above: Non- GFR Calc Platelets bldon 12-20-2021 Platelets (Bld) [#/Vol] 171 10*3/uL 150-450 [facility] Work Phone: Serum or plasma albumin kavitha urement (mass/volume)on 12-20-2021 Albumin [Mass/Vol] 3.6 g/dL 3.2-5.0 [facility] Work Phone: Serum or plasma albumin/glob ulin mass ratioon 12-20-2021 Albumin/Globulin [Mass ratio] 1.1 {ratio} 0.9-2.4 [facility] Work Phone: Serum or plasma calcium kavitha urement (mass/volume)on 12-20-2021 Calcium [Mass/Vol] 8.6 mg/dL 8.5-10.1 [facility] Work Phone: Serum or plasma creatinine m easurement (mass/volume)on 12-20-2021 Creatinine [Mass/Vol] 0.88 mg/dL 0.70-1.30 [facility] Work Phone: Comment on above: The validity of the calculated GFR & GFRAA in patients over 70 years has not been determined. Clinical correlation is essential. Serum or plasma urea nitroge n measurement (mass/volume)on 12-20-2021 Urea nitrogen [Mass/Vol] 15 mg/dL 7-18 [facility] Work Phone: Thin prep Papanicolaou smear with manual screeningon 12-20-2021 Thin prep Papanicolaou smear with manual screening 16 U/L 15-37 [facility] Work Phone: Thin prep Papanicolaou smear with manual screening 9 5-15 [facility] Work Phone: Basophil percentageon 2021 Cholesterol [Mass/Vol] 107 mg/dL <200 [facility] Work Phone: Comment on above: <200 mg/dL Desirable 200-240 mg/dL Borderline >240 mg/dL High Risk Triglyceride [Mass/Vol] 62 mg/dL [facility] Work Phone: Comment on above: The drugs N-Acetylcy steine and Metamizole may falsely depress this assay.Serum Triglycerides Reference Interval Normal <150 mg/dL Borderline high 150 - 199 mg/dL High 200 - 499 mg/dL Very High > or = 500 mg/dL No Panel Informationon 12-19 SARS-CoV-2 Antigen (Rapid) [facility] Work Phone: CA 19-9 Antigen 8 U/mL [facility] Work Phone: Comment on above: [facility] [employer] El ectrochemiluminescence Immunoassay(ECLIA)Values obtained with different assay methods or kits cannotbe used interchangeably. Results cannot be interpreted asabsolute evidence of the presence or absence of malignantdisease.Performed at: [address] [id number] Director: Angel Ortiz PhD, Phone: [phone] Serum or plasma cholesterol in HDL measurement (mass/volume)on 12-19-2021 Cholesterol in HDL [Mass/Vol] 41 mg/dL [facility] Work Phone: Comment on above: The drugs N-Acetylcy steine and Metamizole may falsely depress this assay. Reference Range HDL <40 mg/dL Low HDL Cholesterol HDL >or= 60 mg/dL High HDL Cholesterol Serum or plasma cholesterol in VLDL measurement (mass/volume)on 12-19-2021 Cholesterol in VLDL [Mass/Vol] 12 mg/dL 5-40 [facility] Work Phone: Serum or plasma low density lipoprotein (LDL) cholesterol measurement (mass/volume)on 12-19-2021 Cholesterol in LDL [Mass/Vol] 54 mg/dL 0-130 [facility] Work Phone: Laboratory - Chemistry and C hemistry - challengeon 12-18-2021 Magnesium [Mass/Vol] 2.3 mg/dL 1.6-2.6 [facility] Work Phone: Direct bilirubinon 2 Bilirubin.direct [Mass/Vol] 0.14 mg/dL 0.00-0.30 [facility] Work Phone: Laboratory - Chemistry and C hemistry - challengeon 12-17-2021 Lipase [Catalytic activity/Vol] U/L 73-393 [facility] Work Phone: No Panel Informationon 12-17 Troponin I High Sensitivity 5 pg/mL 3.0-78.0 [facility] Work Phone: Comment on above: Please Note: New Lakshmi t Units and Gender Specific Reference Ranges. For more information see Policy Stat Procedure [place] High Sensitivity Troponin (TNIH) and attachments. LABORATORYOrdered By: Yulissa Meza on 12-03-2021 Albumin BCP dye [Mass/Vol] 3.7 G/dL Invalid Interpretation Code 3.4 - 4.8 G/dL AO ADM SS Albumin/Globulin [Mass ratio] 1.3 {ratio} Invalid Interpretation Code 1.1 - 2.5 ratio AO ADM SS ALP [Catalytic activity/Vol] 69 U/L Invalid Interpretation Code 40 - 135 U/L AO ADM SS ALT With P-5'-P [Catalytic activity/Vol] 35 U/L Invalid Interpretation Code 16 - 63 U/L AO ADM SS AST With P-5'-P [Catalytic activity/Vol] 22 U/L Invalid Interpretation Code 10 - 40 U/L AO ADM SS Basophil, Absolute 0.00 103/mcL Invalid Interpretation Code 0.00 - 0.19 10^3/mcL AO Auto Heme SS Basophils/100 WBC (Bld) 0.6 % Invalid Interpretation Code 0.0 - 2.5 % AO Auto Heme SS Bilirubin [Mass/Vol] 1.0 mg/dL Invalid Interpretation Code 0.2 - 1.0 mg/dL AO ADM SS Calcium [Mass/Vol] 8.8 mg/dL Invalid Interpretation Code 8.4 - 10.2 mg/dL AO ADM SS Chloride [Moles/Vol] 108 mmol/L Invalid Interpretation Code 98 - 107 mmol/L AO ADM SS Cholesterol [Mass/Vol] 202 mg/dL Invalid Interpretation Code 0 - 200 mg/dL AO ADM SS Cholesterol in HDL [Mass/Vol] 49 mg/dL Invalid Interpretation Code 40 - 60 mg/dL AO ADM SS Cholesterol in LDL [Mass/Vol] 146 mg/dL Invalid Interpretation Code 0 - 130 mg/dL AO ADM SS CO2 [Moles/Vol] 27 mmol/L Invalid Interpretation Code 23 - 31 mmol/L AO ADM SS Creatinine [Mass/Vol] 0.90 mg/dL Invalid Interpretation Code 0.70 - 1.30 mg/dL AO ADM SS Electrolyte Balance 10.0 mEq/L Invalid Interpretation Code 4.0 - 15.0 mEq/L AO ADM SS Eosinophil, Absolute 0.10 103/mcL Invalid Interpretation Code 0.00 - 0.40 10^3/mcL AO Auto Heme SS Eosinophils/100 WBC (Bld) 0.7 % Invalid Interpretation Code 0.0 - 7.0 % AO Auto Heme SS Erythrocyte distribution width (RBC) [Ratio] 13.3 % Invalid Interpretation Code 11.5 - 14.5 % AO Auto Heme SS Globulin 2.8 G/dL Invalid Interpretation Code AO ADM SS Glucose [Mass/Vol] 88 mg/dL Invalid Interpretation Code 80 - 115 mg/dL AO ADM SS Hematocrit (Bld) [Volume fraction] 42.9 % Invalid Interpretation Code 42.0 - 52.0 % AO Auto Heme SS Hemoglobin (Bld) [Mass/Vol] 14.5 G/dL Invalid Interpretation Code 14.0 - 18.0 G/dL AO Auto Heme SS Lipase [Catalytic activity/Vol] 161 U/L Invalid Interpretation Code 73 - 393 U/L AO ADM SS Lymphocyte, Absolute 1.70 103/mcL Invalid Interpretation Code 0.77 - 3.85 10^3/mcL AO Auto Heme SS Lymphocytes/100 WBC (Bld) 20.9 % Invalid Interpretation Code 10.0 - 50.0 % AO Auto Heme SS Magnesium [Mass/Vol] 1.9 mg/dL Invalid Interpretation Code 1.8 - 2.4 mg/dL AO ADM SS MCH (RBC) [Entitic mass] 29.5 pg Invalid Interpretation Code 27.0 - 31.2 pg AO Auto Heme SS MCHC (RBC) [Mass/Vol] 33.9 G/dL Invalid Interpretation Code 31.8 - 35.4 G/dL AO Auto Heme SS MCV (RBC) [Entitic vol] 87.0 fL Invalid Interpretation Code 80.0 - 94.0 fL AO Auto Heme SS Monocyte, Absolute 0.60 103/mcL Invalid Interpretation Code 0.15 - 1.00 10^3/mcL AO Auto Heme SS Monocytes/100 WBC (Bld) 7.1 % Invalid Interpretation Code 1.7 - 13.0 % AO Auto Heme SS Neutrophil, Absolute 5.70 103/mcL Invalid Interpretation Code 2.85 - 6.16 10^3/mcL AO Auto Heme SS Neutrophils/100 WBC (Bld) 70.7 % Invalid Interpretation Code 37.0 - 80.0 % AO Auto Heme SS Platelet mean volume (Bld) [Entitic vol] 8.7 fL Invalid Interpretation Code 7.4 - 10.4 fL AO Auto Heme SS Platelets (Bld) [#/Vol] 158 103/mcL Invalid Interpretation Code 130 - 400 10^3/mcL AO Auto Heme SS Potassium [Moles/Vol] 3.8 mmol/L Invalid Interpretation Code 3.5 - 5.1 mmol/L AO ADM SS Protein [Mass/Vol] 6.5 G/dL Invalid Interpretation Code 6.4 - 8.2 G/dL AO ADM SS RBC (Bld) [#/Vol] 4.93 106/mcL Invalid Interpretation Code 4.04 - 6.13 10^6/mcL AO Auto Heme SS Sodium [Moles/Vol] 145 mmol/L Invalid Interpretation Code 136 - 145 mmol/L AO ADM SS Triglyceride [Mass/Vol] 33 mg/dL Invalid Interpretation Code 0 - 150 mg/dL AO ADM SS Urea nitrogen [Mass/Vol] 15 mg/dL Invalid Interpretation Code 7 - 18 mg/dL AO ADM SS Urea nitrogen/Creatinine [Mass ratio] 17 ratio Invalid Interpretation Code 7 - 27 ratio AO ADM SS WBC (Bld) [#/Vol] 8.00 103/mcL Invalid Interpretation Code 4.60 - 10.80 10^3/mcL AO Auto Heme SS LABORATORYOrdered By: SYSTEM SYSTEM on 12-03-2021 GFR 104 ml/min/1.73sqm Invalid Interpretation Code AO Chemistry S GFR Non- 86 ml/min/1.73sqm Invalid Interpretation Code AO Chemistry S LABORATORYOrdered By: Shania Coleman on 12-02-2021 Albumin BCP dye [Mass/Vol] 4.8 G/dL Invalid Interpretation Code 3.4 - 4.8 G/dL AO ADM SS Albumin/Globulin [Mass ratio] 1.4 {ratio} Invalid Interpretation Code 1.1 - 2.5 ratio AO ADM SS ALP [Catalytic activity/Vol] 89 U/L Invalid Interpretation Code 40 - 135 U/L AO ADM SS ALT With P-5'-P [Catalytic activity/Vol] 37 U/L Invalid Interpretation Code 16 - 63 U/L AO ADM SS AST With P-5'-P [Catalytic activity/Vol] 22 U/L Invalid Interpretation Code 10 - 40 U/L AO ADM SS Basophil, Absolute 0.10 103/mcL Invalid Interpretation Code 0.00 - 0.19 10^3/mcL AO Auto Heme SS Basophils/100 WBC (Bld) 1.3 % Invalid Interpretation Code 0.0 - 2.5 % AO Auto Heme SS Bilirubin [Mass/Vol] 1.0 mg/dL Invalid Interpretation Code 0.2 - 1.0 mg/dL AO ADM SS Calcium [Mass/Vol] 9.3 mg/dL Invalid Interpretation Code 8.4 - 10.2 mg/dL AO ADM SS Chloride [Moles/Vol] 103 mmol/L Invalid Interpretation Code 98 - 107 mmol/L AO ADM SS CO2 [Moles/Vol] 27 mmol/L Invalid Interpretation Code 23 - 31 mmol/L AO ADM SS Creatinine [Mass/Vol] 1.10 mg/dL Invalid Interpretation Code 0.70 - 1.30 mg/dL AO ADM SS Electrolyte Balance 13.0 mEq/L Invalid Interpretation Code 4.0 - 15.0 mEq/L AO ADM SS Eosinophil, Absolute 0.20 103/mcL Invalid Interpretation Code 0.00 - 0.40 10^3/mcL AO Auto Heme SS Eosinophils/100 WBC (Bld) 1.8 % Invalid Interpretation Code 0.0 - 7.0 % AO Auto Heme SS Erythrocyte distribution width (RBC) [Ratio] 13.8 % Invalid Interpretation Code 11.5 - 14.5 % AO Auto Heme SS Globulin 3.4 G/dL Invalid Interpretation Code AO ADM SS Glucose [Mass/Vol] 119 mg/dL Invalid Interpretation Code 80 - 115 mg/dL AO ADM SS Hematocrit (Bld) [Volume fraction] 47.6 % Invalid Interpretation Code 42.0 - 52.0 % AO Auto Heme SS Hemoglobin (Bld) [Mass/Vol] 16.3 G/dL Invalid Interpretation Code 14.0 - 18.0 G/dL AO Auto Heme SS Lipase [Catalytic activity/Vol] 620 U/L Invalid Interpretation Code 73 - 393 U/L AO ADM SS Lymphocyte, Absolute 2.20 103/mcL Invalid Interpretation Code 0.77 - 3.85 10^3/mcL AO Auto Heme SS Lymphocytes/100 WBC (Bld) 25.3 % Invalid Interpretation Code 10.0 - 50.0 % AO Auto Heme SS MCH (RBC) [Entitic mass] 29.5 pg Invalid Interpretation Code 27.0 - 31.2 pg AO Auto Heme SS MCHC (RBC) [Mass/Vol] 34.3 G/dL Invalid Interpretation Code 31.8 - 35.4 G/dL AO Auto Heme SS MCV (RBC) [Entitic vol] 86.1 fL Invalid Interpretation Code 80.0 - 94.0 fL AO Auto Heme SS Monocyte, Absolute 0.90 103/mcL Invalid Interpretation Code 0.15 - 1.00 10^3/mcL AO Auto Heme SS Monocytes/100 WBC (Bld) 9.8 % Invalid Interpretation Code 1.7 - 13.0 % AO Auto Heme SS Neutrophil, Absolute 5.40 103/mcL Invalid Interpretation Code 2.85 - 6.16 10^3/mcL AO Auto Heme SS Neutrophils/100 WBC (Bld) 61.8 % Invalid Interpretation Code 37.0 - 80.0 % AO Auto Heme SS Platelet mean volume (Bld) [Entitic vol] 8.7 fL Invalid Interpretation Code 7.4 - 10.4 fL AO Auto Heme SS Platelets (Bld) [#/Vol] 206 103/mcL Invalid Interpretation Code 130 - 400 10^3/mcL AO Auto Heme SS Potassium [Moles/Vol] 3.4 mmol/L Invalid Interpretation Code 3.5 - 5.1 mmol/L AO ADM SS Protein [Mass/Vol] 8.2 G/dL Invalid Interpretation Code 6.4 - 8.2 G/dL AO ADM SS RBC (Bld) [#/Vol] 5.53 106/mcL Invalid Interpretation Code 4.04 - 6.13 10^6/mcL AO Auto Heme SS Sodium [Moles/Vol] 143 mmol/L Invalid Interpretation Code 136 - 145 mmol/L AO ADM SS Urea nitrogen [Mass/Vol] 15 mg/dL Invalid Interpretation Code 7 - 18 mg/dL AO ADM SS Urea nitrogen/Creatinine [Mass ratio] 14 ratio Invalid Interpretation Code 7 - 27 ratio AO ADM SS WBC (Bld) [#/Vol] 8.80 103/mcL Invalid Interpretation Code 4.60 - 10.80 10^3/mcL AO Auto Heme SS LABORATORYOrdered By: SYSTEM SYSTEM on 12-02-2021 GFR 83 ml/min/1.73sqm Invalid Interpretation Code AO Chemistry S GFR Non- 68 ml/min/1.73sqm Invalid Interpretation Code AO Chemistry S LABORATORYOrdered By: Winter Petersen on 10-06-2021 ADMITTED TO INTENSIVE CARE UNIT FOR CONDITION OF INTEREST:FIND:PT:^BLAKE ENT:ORD: No (10/06/21 4:30 PM) Invalid Interpretation Code AO Auto Urine SS EMPLOYED IN A HEALTHCARE SETTING:FIND:PT:^PATIE NT:ORD: No (10/06/21 4:30 PM) Invalid Interpretation Code AO Auto Urine SS FIRST TEST FOR CONDITION OF INTEREST:FIND:PT:^BLAKE ENT:ORD: No (10/06/21 4:30 PM) Invalid Interpretation Code AO Auto Urine SS HAS SYMPTOMS RELATED TO CONDITION OF INTEREST:FIND:PT:^BLAKE ENT:ORD: No (10/06/21 4:30 PM) Invalid Interpretation Code AO Auto Urine SS Illness or injury onset date and time [id number] Invalid Interpretation Code AO Auto Urine SS Patient was hospitalized because of this condition No (10/06/21 4:30 PM) Invalid Interpretation Code AO Auto Urine SS status Not (10/06/21 4:30 PM) Invalid Interpretation Code AO Auto Urine SS RESIDES IN A CONGREGATE CARE SETTING:FIND:PT:^PATIE NT:ORD: No (10/06/21 4:30 PM) Invalid Interpretation Code AO Auto Urine SS SARS-CoV-2 (COVID-19) RNA HARRY+probe Ql (Resp) Negative (10/06/21 4:30 PM) Invalid Interpretation Code Negative AO Auto Urine SS SARS-CoV-2 (COVID-19) RNA HARRY+probe Ql (Unsp spec) Negative results do not preclude SARS-CoV-2 infection and should not be used as the sole basis for patient management decisions. Negative results must be combined with clinical observations, patient history, and epidemiological information.There is a risk of false negative values resulting from improperly collected, transported, or handled specimens.There is a risk of false negative values due to the presence of sequence variants in the pathogen targets of the assay, procedural errors, amplification inhibitors in specimens, or inadequate numbers of organisms for amplification.TOM[employer]S SARS-CoV-2 Assay is a Real-Time reverse-transcriptase polymerase chain reaction (RT-PCR) based qualitative in vitro diagnostic test intended for the qualitative detection of nucleic acid from the SARS-CoV-2 in nasopharyngeal swab specimens collected from individuals suspected of COVID-19 by their healthcare provider. Testing is limited to laboratories certified under the Clinical Laboratory Improvement Amendments of 1988 (CLIA), 42 U.S.C. 263a, to perform moderate and high complexity tests. Invalid Interpretation Code AO Auto Urine SS LABORATORYOrdered By: Kiara Foster on 09-02-2021 Albumin BCP dye [Mass/Vol] 4.6 G/dL Invalid Interpretation Code 3.4 - 4.8 G/dL AO ADM SS Albumin/Globulin [Mass ratio] 1.4 {ratio} Invalid Interpretation Code 1.1 - 2.5 ratio AO ADM SS ALP [Catalytic activity/Vol] 88 U/L Invalid Interpretation Code 40 - 135 U/L AO ADM SS ALT With P-5'-P [Catalytic activity/Vol] 37 U/L Invalid Interpretation Code 16 - 63 U/L AO ADM SS AST With P-5'-P [Catalytic activity/Vol] 22 U/L Invalid Interpretation Code 10 - 40 U/L AO ADM SS Basophil, Absolute 0.00 103/mcL Invalid Interpretation Code 0.00 - 0.19 10^3/mcL AO Auto Heme SS Basophils/100 WBC (Bld) 0.7 % Invalid Interpretation Code 0.0 - 2.5 % AO Auto Heme SS Bilirubin [Mass/Vol] 1.0 mg/dL Invalid Interpretation Code 0.2 - 1.0 mg/dL AO ADM SS Calcium [Mass/Vol] 9.3 mg/dL Invalid Interpretation Code 8.4 - 10.2 mg/dL AO ADM SS Chloride [Moles/Vol] 103 mmol/L Invalid Interpretation Code 98 - 107 mmol/L AO ADM SS CO2 [Moles/Vol] 27 mmol/L Invalid Interpretation Code 23 - 31 mmol/L AO ADM SS Creatinine [Mass/Vol] 1.05 mg/dL Invalid Interpretation Code 0.70 - 1.30 mg/dL AO ADM SS Electrolyte Balance 10.0 mEq/L Invalid Interpretation Code AO ADM SS Eosinophil, Absolute 0.10 103/mcL Invalid Interpretation Code 0.00 - 0.40 10^3/mcL AO Auto Heme SS Eosinophils/100 WBC (Bld) 1.8 % Invalid Interpretation Code 0.0 - 7.0 % AO Auto Heme SS Erythrocyte distribution width (RBC) [Ratio] 13.6 % Invalid Interpretation Code 11.5 - 14.5 % AO Auto Heme SS Globulin 3.3 G/dL Invalid Interpretation Code AO ADM SS Glucose [Mass/Vol] 117 mg/dL Invalid Interpretation Code 80 - 115 mg/dL AO ADM SS Hematocrit (Bld) [Volume fraction] 45.7 % Invalid Interpretation Code 42.0 - 52.0 % AO Auto Heme SS Hemoglobin (Bld) [Mass/Vol] 15.5 G/dL Invalid Interpretation Code 14.0 - 18.0 G/dL AO Auto Heme SS Lipase [Catalytic activity/Vol] 583 U/L Invalid Interpretation Code 73 - 393 U/L AO ADM SS Lymphocyte, Absolute 1.20 103/mcL Invalid Interpretation Code 0.77 - 3.85 10^3/mcL AO Auto Heme SS Lymphocytes/100 WBC (Bld) 19.7 % Invalid Interpretation Code 10.0 - 50.0 % AO Auto Heme SS MCH (RBC) [Entitic mass] 29.6 pg Invalid Interpretation Code 27.0 - 31.2 pg AO Auto Heme SS MCHC (RBC) [Mass/Vol] 34.0 G/dL Invalid Interpretation Code 31.8 - 35.4 G/dL AO Auto Heme SS MCV (RBC) [Entitic vol] 87.2 fL Invalid Interpretation Code 80.0 - 94.0 fL AO Auto Heme SS Monocyte, Absolute 0.60 103/mcL Invalid Interpretation Code 0.15 - 1.00 10^3/mcL AO Auto Heme SS Monocytes/100 WBC (Bld) 9.1 % Invalid Interpretation Code 1.7 - 13.0 % AO Auto Heme SS Neutrophil, Absolute 4.30 103/mcL Invalid Interpretation Code 2.85 - 6.16 10^3/mcL AO Auto Heme SS Neutrophils/100 WBC (Bld) 68.7 % Invalid Interpretation Code 37.0 - 80.0 % AO Auto Heme SS Platelet mean volume (Bld) [Entitic vol] 8.7 fL Invalid Interpretation Code 7.4 - 10.4 fL AO Auto Heme SS Platelets (Bld) [#/Vol] 189 103/mcL Invalid Interpretation Code 130 - 400 10^3/mcL AO Auto Heme SS Potassium [Moles/Vol] 3.6 mmol/L Invalid Interpretation Code 3.5 - 5.1 mmol/L AO ADM SS Protein [Mass/Vol] 7.9 G/dL Invalid Interpretation Code 6.4 - 8.2 G/dL AO ADM SS RBC (Bld) [#/Vol] 5.24 106/mcL Invalid Interpretation Code 4.04 - 6.13 10^6/mcL AO Auto Heme SS Sodium [Moles/Vol] 140 mmol/L Invalid Interpretation Code 136 - 145 mmol/L AO ADM SS Urea nitrogen [Mass/Vol] 15 mg/dL Invalid Interpretation Code 7 - 18 mg/dL AO ADM SS Urea nitrogen/Creatinine [Mass ratio] 14 ratio Invalid Interpretation Code 7 - 27 ratio AO ADM SS WBC (Bld) [#/Vol] 6.20 103/mcL Invalid Interpretation Code 4.60 - 10.80 10^3/mcL AO Auto Heme SS LABORATORYOrdered By: SYSTEM SYSTEM on 09-02-2021 GFR 87 ml/min/1.73sqm Invalid Interpretation Code AO Chemistry S GFR Non- 72 ml/min/1.73sqm Invalid Interpretation Code AO Chemistry S CNPJosee 12-27-2020 CNPN Telephone (NICOLASAASTACC ) -- CHLOE CHENEY ([id number]) 1960 M Date Time Provider Department 12/27/20 KATHRIN GREENWOOD During your visit today, we recorded the following information about you: Lenny Rucker 12/27/2020 11:34 AM Signed No mailbox set up. The patient was referred for Pancreatitis . Lenny Rucker December 27, 2020 11:33 AM Lenny Rucker 01/01/2021 10:30 AM Signed The patient mail box is full. The patient was referred for Pancreatitis . Lenny Rucker January 01, 2021 10:30 AM Allergies As of Date: 12/27/2020 (Not on File) Date Reviewed: 02/04/2019 Reviewed by: Eli Segovia Ma - Fully Assessed Reason for Visit: Appointment [186] Problem List As Of Date: 12/27/2020 (None) Encounter Status:Closed by LENNY RUCKER on 12/27/20 Normal [facility] Basic Metabolic Panelon 06-0 Calcium [Mass/Vol] 8.4 mg/dL Normal 8.4-10.4 [facility] Comment on above: Performed By: #### P T, LACT3, CMP3, MG3, LIPA4, BILD3, HEMDF #### [address] [place] [address] Glucose [Mass/Vol] 87 mg/dL Normal 70-100 [facility] Comment on above: Performed By: #### P T, LACT3, CMP3, MG3, LIPA4, BILD3, HEMDF #### [facility] [address] [place] [address] Anion gap [Moles/Vol] 8 Normal [facility] Comment on above: Performed By: #### P T, LACT3, CMP3, MG3, LIPA4, BILD3, HEMDF #### [facility] [address] [place] [address] CO2 [Moles/Vol] 22 mmol/L Normal 22-30 [facility] Comment on above: Performed By: #### P T, LACT3, CMP3, MG3, LIPA4, BILD3, HEMDF #### [address] [place] [address] Creatinine [Mass/Vol] 0.69 mg/dL Normal 0.52-1.25 [facility] Comment on above: Performed By: #### P T, LACT3, CMP3, MG3, LIPA4, BILD3, HEMDF #### [facility] [address] [place] [address] GFR/1.73 sq M predicted among blacks MDRD (S/P/Bld) [Vol rate/Area] mL/min/{1.73_m2} Normal >60 [facility] Comment on above: Performed By: #### P T, LACT3, CMP3, MG3, LIPA4, BILD3, HEMDF #### [facility] [address], [place] GFR/1.73 sq M predicted among non-blacks MDRD (S/P/Bld) [Vol rate/Area] mL/min/{1.73_m2} Normal >60 [facility] Comment on above: Result Comment: KDIG O guidelines provide the following GFR categories: Stage GFR(ml/min/1.73 m2) Terms G1 >=90 Normal or high G2 60-89 Mildly decreased* G3a 45-59 Mildly to moderately decreased G3b 30-44 Moderately to severely decreased G4 15-29 Severely decreased G5 <15 Kidney failure *Relative to young adult level. In the absence of evidence of kidney damage, neither GFR category G1 nor G2 fulfill the criteria for CKD. The CKD-EPI equation is validated in individuals 18 years of age and older. Currently the best equation for estimating glomerular filtration rate (GFR) from serum creatinine in children is the Bedside Mercedes equation. It is less accurate in patients with extremes of muscle mass, restriction of dietary protein, ingestion of creatine, extra-renal metabolism of creatinine, or treatment with medications that affect renal tubular creatinine secretion. Performed By: #### P T, LACT3, CMP3, MG3, LIPA4, BILD3, HEMDF #### [facility] [address] [place], [place] Urea nitrogen [Mass/Vol] 12 mg/dL Normal 7-20 [facility] Comment on above: Performed By: #### P T, LACT3, CMP3, MG3, LIPA4, BILD3, HEMDF #### [facility] [address] [place], [place] Potassium [Moles/Vol] 3.8 mmol/L Normal 3.5-5.1 [facility] Comment on above: Performed By: #### P T, LACT3, CMP3, MG3, LIPA4, BILD3, HEMDF #### [facility] [address] [place], [place] Chloride [Moles/Vol] 107 mmol/L Normal 98-107 [facility] Comment on above: Performed By: #### P T, LACT3, CMP3, MG3, LIPA4, BILD3, HEMDF #### [facility] [address], [place] Sodium [Moles/Vol] 137 mmol/L Normal 135-145 [facility] Comment on above: Performed By: #### P T, LACT3, CMP3, MG3, LIPA4, BILD3, HEMDF #### [facility] [address], [place] Basic Metabolic Panel w/ Ref kirti to MGon 04-01-2020 Anion gap [Moles/Vol] 8 mmol/L [place] Calcium [Mass/Vol] 8.4 mg/dL 8.4 - 10. 4 mg/dL [place] Chloride [Moles/Vol] 107 mmol/L 98 - 10 7 mmol/L [place] CO2 [Moles/Vol] 22 mmol/L 22 - 30 mmol/L [place] Creatinine [Mass/Vol] 0.69 mg/dL 0.52 - 1.25 mg/dL [place] EGFR IF NonAfrican Slovak >90.0 >60 mL/min [place] Comment on above: KDIGO guidelines pro vide the following GFR categories: Stage GFR(ml/min/1.73 m2) Terms G1 >=90 Normal or high G2 60-89 Mildly decreased* G3a 45-59 Mildly to moderately decreased G3b 30-44 Moderately to severely decreased G4 15-29 Severely decreased G5 <15 Kidney failure *Relative to young adult level. In the absence of evidence of kidney damage, neither GFR category G1 nor G2 fulfill the criteria for CKD. The CKD-EPI equation is validated in individuals 18 years of age and older. Currently the best equation for estimating glomerular filtration rate (GFR) from serum creatinine in children is the Bedside Mercedes equation. It is less accurate in patients with extremes of muscle mass, restriction of dietary protein, ingestion of creatine, extra-renal metabolism of creatinine, or treatment with medications that affect renal tubular creatinine secretion. GFR/1.73 sq M predicted among blacks MDRD (S/P/Bld) [Vol rate/Area] mL/min/{1.73_m2} >60 mL/min [place] Glucose [Mass/Vol] 87 mg/dL 70 - 100 mg/dL [place] Potassium [Moles/Vol] 3.8 mmol/L 3.5 - 5.1 mmol/L [place] Sodium [Moles/Vol] 137 mmol/L 135 - 145 mmol/L [place] Urea nitrogen [Mass/Vol] 12 mg/dL 7 - 20 mg/dL [place] Glucose,Bedsideon 04-01-2020 Glucose [Mass/Vol] 137 mg/dL High 70-100 [facility] Comment on above: Result Comment: Test performed by glucose meter. Results may be 10%-15% lower than serum/plasma values. (CLIA ID [id number]) Performed By: #### P T, LACT3, CMP3, MG3, LIPA4, BILD3, HEMDF #### [address] [address] Lipaseon 04-01-2020 Lipase [Catalytic activity/Vol] 1275 U/L High 23-300 [facility] Comment on above: Performed By: #### P T, LACT3, CMP3, MG3, LIPA4, BILD3, HEMDF #### [address] [place] [address] Interpretation and review of laboratory results Abnormal [place] Lipase [Catalytic activity/Vol] 1275 U/L High 23 - 300 U/L [place] Otheron 04-01-2020 Test Performed by [facility], [address] [place] [address] [place], [place] Add On Lab Teston 03-31-2020 Sodium [Moles/Vol] Accepted [place] Comment on above: Specimen available & acceptable for analysis. Test Performed by [facility], [address] [place] [address] [facility] [place], [place] Add on test from HISon 03-31 Add on test from [facility] Accepted Normal [facility] Comment on above: Result Comment: Spec imen available & acceptable for analysis. Performed By: #### P T, LACT3, CMP3, MG3, LIPA4, BILD3, HEMDF #### [address] [place] [address] Basic Metabolic Panelon Calcium [Mass/Vol] 8.6 mg/dL Normal 8.4-10.4 [facility] Comment on above: Performed By: #### P T, LACT3, CMP3, MG3, LIPA4, BILD3, HEMDF #### [address] [place] [address] Anion gap [Moles/Vol] 8 Normal [facility] Comment on above: Performed By: #### P T, LACT3, CMP3, MG3, LIPA4, BILD3, HEMDF #### [address] [place] [address] CO2 [Moles/Vol] 24 mmol/L Normal 22-30 [facility] Comment on above: Performed By: #### P T, LACT3, CMP3, MG3, LIPA4, BILD3, HEMDF #### [address] [place] [address] Creatinine [Mass/Vol] 0.73 mg/dL Normal 0.52-1.25 [facility] Comment on above: Performed By: #### P T, LACT3, CMP3, MG3, LIPA4, BILD3, HEMDF #### [address] [place], [place] GFR/1.73 sq M predicted among blacks MDRD (S/P/Bld) [Vol rate/Area] mL/min/{1.73_m2} Normal >60 [facility] Comment on above: Performed By: #### P T, LACT3, CMP3, MG3, LIPA4, BILD3, HEMDF #### [address] [address] GFR/1.73 sq M predicted among non-blacks MDRD (S/P/Bld) [Vol rate/Area] mL/min/{1.73_m2} Normal >60 [facility] Comment on above: Result Comment: KDIG O guidelines provide the following GFR categories: Stage GFR(ml/min/1.73 m2) Terms G1 >=90 Normal or high G2 60-89 Mildly decreased* G3a 45-59 Mildly to moderately decreased G3b 30-44 Moderately to severely decreased G4 15-29 Severely decreased G5 <15 Kidney failure *Relative to young adult level. In the absence of evidence of kidney damage, neither GFR category G1 nor G2 fulfill the criteria for CKD. The CKD-EPI equation is validated in individuals 18 years of age and older. Currently the best equation for estimating glomerular filtration rate (GFR) from serum creatinine in children is the Bedside Mercedes equation. It is less accurate in patients with extremes of muscle mass, restriction of dietary protein, ingestion of creatine, extra-renal metabolism of creatinine, or treatment with medications that affect renal tubular creatinine secretion. Performed By: #### P T, LACT3, CMP3, MG3, LIPA4, BILD3, HEMDF #### [address] [place] [address] Glucose [Mass/Vol] 101 mg/dL High 70-100 [facility] Comment on above: Performed By: #### P T, LACT3, CMP3, MG3, LIPA4, BILD3, HEMDF #### [address] [place] [address] Urea nitrogen [Mass/Vol] 14 mg/dL Normal 7-20 [facility] Comment on above: Performed By: #### P T, LACT3, CMP3, MG3, LIPA4, BILD3, HEMDF #### [address] [address] Chloride [Moles/Vol] 106 mmol/L Normal 98-107 [facility] Comment on above: Performed By: #### P T, LACT3, CMP3, MG3, LIPA4, BILD3, HEMDF #### [address] Potassium [Moles/Vol] 3.8 mmol/L Normal 3.5-5.1 [facility] Comment on above: Performed By: #### P T, LACT3, CMP3, MG3, LIPA4, BILD3, HEMDF #### [facility] [address], [place] Sodium [Moles/Vol] 138 mmol/L Normal 135-145 [facility] Comment on above: Performed By: #### P T, LACT3, CMP3, MG3, LIPA4, BILD3, HEMDF #### [facility] [address] [place], [place] Basic Metabolic Panel w/ Ref kirti to MG 03-31-2020 Anion gap [Moles/Vol] 8 mmol/L [place] Calcium [Mass/Vol] 8.6 mg/dL 8.4 - 10. 4 mg/dL [place] Chloride [Moles/Vol] 106 mmol/L 98 - 10 7 mmol/L [place] CO2 [Moles/Vol] 24 mmol/L 22 - 30 mmol/L [place] Creatinine [Mass/Vol] 0.73 mg/dL 0.52 - 1.25 mg/dL [place] EGFR IF NonAfrican [place] >90.0 >60 mL/min [place] Comment on above: KDIGO guidelines pro vide the following GFR categories: Stage GFR(ml/min/1.73 m2) Terms G1 >=90 Normal or high G2 60-89 Mildly decreased* G3a 45-59 Mildly to moderately decreased G3b 30-44 Moderately to severely decreased G4 15-29 Severely decreased G5 <15 Kidney failure *Relative to young adult level. In the absence of evidence of kidney damage, neither GFR category G1 nor G2 fulfill the criteria for CKD. The CKD-EPI equation is validated in individuals 18 years of age and older. Currently the best equation for estimating glomerular filtration rate (GFR) from serum creatinine in children is the Bedside Mercedes equation. It is less accurate in patients with extremes of muscle mass, restriction of dietary protein, ingestion of creatine, extra-renal metabolism of creatinine, or treatment with medications that affect renal tubular creatinine secretion. GFR/1.73 sq M predicted among blacks MDRD (S/P/Bld) [Vol rate/Area] mL/min/{1.73_m2} >60 mL/min [place] Glucose [Mass/Vol] 101 mg/dL High 70 - 100 mg/dL [place] Interpretation and review of laboratory results Abnormal [place] Potassium [Moles/Vol] 3.8 mmol/L 3.5 - 5.1 mmol/L [place] Sodium [Moles/Vol] 138 mmol/L 135 - 145 mmol/L [place] Urea nitrogen [Mass/Vol] 14 mg/dL 7 - 20 mg/dL [place] CBCon 03-31-2020 Erythrocyte distribution width (RBC) [Ratio] 13.7 % 11.5 - 14.5 % [place] Hematocrit (Bld) [Volume fraction] 40.7 % 40 - 52 % [place] Hemoglobin (Bld) [Mass/Vol] 13.9 g/dL 13 - 18 g/dL [place] MCH (RBC) [Entitic mass] 30.5 pg 26 - 34 pg [place] MCHC (RBC) [Mass/Vol] 34.1 % 32 - 36 % [place] MCV (RBC) [Entitic vol] 89.4 fL 80 - 98 fL [place] Platelet mean volume (Bld) [Entitic vol] 8.3 fL 7.4 - 10.4 fL [place] Platelets (Bld) [#/Vol] 156 10*3/uL 140 - 440 10*3/uL [place] RBC (Bld) [#/Vol] 4.56 10*6/uL 4.4 - 5.9 10*6/uL [place] WBC (Bld) [#/Vol] 7.9 10*3/uL 3.6 - 10.7 10*3/uL [place] Test Performed by [facility], [address] [place] [address] [place] Hemogramon 03-31-2020 Erythrocyte distribution width (RBC) [Ratio] 13.7 % Normal 11.5-14.5 [facility] Comment on above: Performed By: #### P T, LACT3, CMP3, MG3, LIPA4, BILD3, HEMDF #### [address] [place], [place] Hematocrit (Bld) [Volume fraction] 40.7 % Normal 40.0-52.0 [facility] Comment on above: Performed By: #### P T, LACT3, CMP3, MG3, LIPA4, BILD3, HEMDF #### [address] [place] Hemoglobin (Bld) [Mass/Vol] 13.9 g/dL Normal 13.0-18.0 [facility] Comment on above: Performed By: #### P T, LACT3, CMP3, MG3, LIPA4, BILD3, HEMDF #### [address] [place] MCH (RBC) [Entitic mass] 30.5 pg Normal 26.0-34.0 [facility] Comment on above: Performed By: #### P T, LACT3, CMP3, MG3, LIPA4, BILD3, HEMDF #### [address] [place] MCHC (RBC) [Mass/Vol] 34.1 % Normal 32.0-36.0 [facility] Comment on above: Performed By: #### P T, LACT3, CMP3, MG3, LIPA4, BILD3, HEMDF #### [address] MCV (RBC) [Entitic vol] 89.4 fL Normal 80.0-98.0 [facility] Comment on above: Performed By: #### P T, LACT3, CMP3, MG3, LIPA4, BILD3, HEMDF #### [address] [place] Platelet mean volume (Bld) [Entitic vol] 8.3 fL Normal 7.4-10.4 [facility] Comment on above: Performed By: #### P T, LACT3, CMP3, MG3, LIPA4, BILD3, HEMDF #### [address] [place], [place] Platelets (Bld) [#/Vol] 156 10*3/uL Normal 140-440 [facility] Comment on above: Performed By: #### P T, LACT3, CMP3, MG3, LIPA4, BILD3, HEMDF #### [address] [place], [place] RBC (Bld) [#/Vol] 4.56 10*6/uL Normal 4.40-5.90 [facility] Comment on above: Performed By: #### P T, LACT3, CMP3, MG3, LIPA4, BILD3, HEMDF #### [address] [place], [place] WBC (Bld) [#/Vol] 7.9 10*3/uL Normal 3.6-10.7 [facility] Comment on above: Performed By: #### P T, LACT3, CMP3, MG3, LIPA4, BILD3, HEMDF #### [address] [place], [place] Hepatic Functionon 0 ALP [Catalytic activity/Vol] 57 U/L Normal 38-126 [facility] Comment on above: Performed By: #### P T, LACT3, CMP3, MG3, LIPA4, BILD3, HEMDF #### [address] [place], [place] ALT [Catalytic activity/Vol] 22 U/L Normal 0-49 [facility] Comment on above: Result Comment: The ALT test is performed by an updated assay method. Please note that the reference intervals have been changed and are now sex specific. Performed By: #### P T, LACT3, CMP3, MG3, LIPA4, BILD3, HEMDF #### [address] [place], [place] AST [Catalytic activity/Vol] 31 U/L Normal 15-46 [facility] Comment on above: Performed By: #### P T, LACT3, CMP3, MG3, LIPA4, BILD3, HEMDF #### [address] [place], [place] Bilirubin [Mass/Vol] 0.8 mg/dL Normal 0.2-1.3 [facility] Comment on above: Performed By: #### P T, LACT3, CMP3, MG3, LIPA4, BILD3, HEMDF #### [address] [place], [place] Bilirubin.direct [Mass/Vol] 0.0 mg/dL Normal 0.0-0.3 [facility] Comment on above: Performed By: #### P T, LACT3, CMP3, MG3, LIPA4, BILD3, HEMDF #### [address] [place], [place] Protein [Mass/Vol] 6.5 g/dL Normal 6.3-8.2 [facility] Comment on above: Performed By: #### P T, LACT3, CMP3, MG3, LIPA4, BILD3, HEMDF #### [address] [place], [place] Albumin [Mass/Vol] 4.0 g/dL Normal 3.5-5.0 [facility] Comment on above: Performed By: #### P T, LACT3, CMP3, MG3, LIPA4, BILD3, HEMDF #### [address] [place], [place] Hepatic Function Panelon Albumin [Mass/Vol] 4.0 g/dL 3.5 - 5 g/dL [place] ALP [Catalytic activity/Vol] 57 U/L 38 - 126 U/L [place] ALT [Catalytic activity/Vol] 22 U/L 0 - 49 U/L [place] Comment on above: The ALT test is perf ormed by an updated assay method. Please note that the reference intervals have been changed and are now sex specific. AST [Catalytic activity/Vol] 31 U/L 15 - 46 U/L [place] Bilirubin Ql (U) 0.8 mg/dL 0.2 - 1.3 mg/dL [place] Bilirubin.direct [Mass/Vol] 0.0 mg/dL 0 - 0.3 mg/dL [place] Protein [Mass/Vol] 6.5 g/dL 6.3 - 8.2 g/dL [place] [place] Test Performed by [facility], [address] [place] [id number] [place] [address] Lipaseon 03-31-2020 Lipase [Catalytic activity/Vol] 2553 U/L High 23-300 [facility] Comment on above: Performed By: #### P T, LACT3, CMP3, MG3, LIPA4, BILD3, HEMDF #### [address] [address] Interpretation and review of laboratory results Abnormal [place], [place] Lipase [Catalytic activity/Vol] 2553 U/L High 23 - 300 U/L [place] Test Performed by [facility], [address] [place] [id number] [place] [address] MRI ABDOMEN W WO CONTRASTon 03-31-2020 Phani, [facility] Incoming Radiology Results From [facility] - 03/31/2020 10:02 PM EDT Patient Name: CHLOE CHENEY ---MRI--- Exam Date/Time 03/31/2020 19:48:36 EDT Exam MRI Abdomen w/ + w/o Contrast Ordering Physician [id number] JAMISON Accession Number [id number] CPT4 Codes 95754 () Reason For Exam mass like soft [...] scarring from prior abscess in the region. Report Dictated on Workstation: [facility] --- Final --- Dictated: 03/31/2020 9:39 pm Dictating Physician: MD MORIN JEFFREY Signed Date and Time: 03/31/2020 10:01 pm Signed by: MD MORIN JEFFREY Transcribed Date and Time: 03/31/2020 9:39 [place], [place] Patient Name: CHLOE [address] ---MRI--- Exam Date/Time 03/31/2020 19:48:36 EDT Exam MRI Abdomen w/ + w/o Contrast Ordering Physician [id number] JAMISON Accession Number [id number] CPT4 Codes 05854 () Reason For Exam mass like soft [...] scarring from prior abscess in the region. Report Dictated on Workstation: [facility] --- Final --- Dictated: 03/31/2020 9:39 pm Dictating Physician: MD MORIN JEFFREY Signed Date and Time: 03/31/2020 10:01 pm Signed by: MD MORIN JEFFREY Transcribed Date and Time: 03/31/2020 9:39 [place] MRI ABDOMEN WO CONTRASTon Phani, [facility] Incoming Radiology Results From [facility] - 03/31/2020 10:02 PM EDT Patient Name: CHLOE CHENEY ---MRI--- Exam Date/Time 03/31/2020 19:48:36 EDT Exam MRI Abdomen w/o Contrast Ordering Physician SUSAN SETHI Accession Number [id number] CPT4 Codes 18463 () Reason For Exam mass like soft [...] scarring from prior abscess in the region. Report Dictated on Workstation: [facility] --- Final --- Dictated: 03/31/2020 9:39 pm Dictating Physician: MD MORIN JEFFREY Signed Date and Time: 03/31/2020 10:01 pm Signed by: MD MORIN JEFFREY Transcribed Date and Time: 03/31/2020 9:39 [place], [place] Patient Name: CHLOE [address] RD ---MRI--- Exam Date/Time 03/31/2020 19:48:36 EDT Exam MRI Abdomen w/o Contrast Ordering Physician [id number] SUSAN BLAIR Accession Number [id number] CPT4 Codes 56115 () Reason For Exam mass like soft [...] scarring from prior abscess in the region. Report Dictated on Workstation: [facility] --- Final --- Dictated: 03/31/2020 9:39 pm Dictating Physician: MD MORIN JEFFREY Signed Date and Time: 03/31/2020 10:01 pm Signed by: MD MORIN JEFFREY Transcribed Date and Time: 03/31/2020 9:39 [place], [place] MRI Abdomen w/ + w/o Contras ton 03-31-2020 MRI Abdomen w/ + w/o Contrast Patient Name: CHLOE CHENEY MRI Exam Date/Time 03/31/2020 19:48:36 EDT Exam MRI Abdomen w/ + w/o Contrast Ordering Physician [id number] JAMISON Accession Number [id number] CPT4 Codes 96380 () Reason For Exam mass like soft [...] scarring from prior abscess in the region. Report Dictated on Workstation: [facility] Final Dictated: 03/31/2020 9:39 pm Dictating Physician: MD MORIN JEFFREY Signed Date and Time: 03/31/2020 10:01 pm Signed by: MD MORIN JEFFREY Transcribed Date and Time: 03/31/2020 9:39 Normal [facility] MRI Abdomen w/o Contraston 0 03-31-2020 MRI Abdomen w/o Contrast Patient Name: CHLOE CHENEY MRI Exam Date/Time 03/31/2020 19:48:36 EDT Exam MRI Abdomen w/o Contrast Ordering Physician [id number] JAMISON Accession Number [id number] CPT4 Codes 55599 () Reason For Exam mass like soft [...] scarring from prior abscess in the region. Report Dictated on Workstation: [facility] Final Dictated: 03/31/2020 9:39 pm Dictating Physician: MD MORIN JEFFREY Signed Date and Time: 03/31/2020 10:01 pm Signed by: MD MORIN JEFFREY Transcribed Date and Time: 03/31/2020 9:39 Normal [facility] Otheron 03-31-2020 Test Performed by [facility], [address] [place] [id number] [place] [address] POCT Glucoseon 03-31-2020 Glucose [Mass/Vol] 137 mg/dL High 70 - 100 mg/dL [place], [place] Comment on above: Test performed by gl ucose meter. Results may be 10%-15% lower than serum/plasma values. (CLIA ID [id number]) Interpretation and review of laboratory results Abnormal [place], [place] Test Performed by [facility], [facility] [place] [address] [place], [place] Triglycerideon 03-31-2020 Triglyceride [Mass/Vol] 79 mg/dL Normal <150 [facility] Comment on above: Performed By: #### P T, LACT3, CMP3, MG3, LIPA4, BILD3, HEMDF #### [address] [place] [address] Triglyceride [Mass/Vol] 79 mg/dL <150 [place], [place] IgG Subclasseson 10-14-2019 IgG Subclass 1 477 mg/dL Normal 240-1118 [facility] Comment on above: Result Comment: REFE RENCE INTERVAL: Immunoglobulin G Subclass 1 Access complete set of age- and/or gender-specific reference intervals for this test in the [facility] Test Directory ([employer]). Performed By: #### P T, LACT3, CMP3, MG3, LIPA4, BILD3, HEMDF #### [address] [place] [address] IgG Subclass 2 529 mg/dL Normal 124-549 [facility] Comment on above: Result Comment: REFE RENCE INTERVAL: Immunoglobulin G Subclass 2 Access complete set of age- and/or gender-specific reference intervals for this test in the [facility] Test Directory ([employer]). Performed By: #### P T, LACT3, CMP3, MG3, LIPA4, BILD3, HEMDF #### [address] [place], [place] IgG Subclass 3 80 mg/dL Normal 21-134 [facility] Comment on above: Result Comment: REFE RENCE INTERVAL: Immunoglobulin G Subclass 3 Access complete set of age- and/or gender-specific reference intervals for this test in the [facility] Test Directory ([employer]). Performed By: #### P T, LACT3, CMP3, MG3, LIPA4, BILD3, HEMDF #### [facility] [address] [place], [place] IgG Subclass 4 21 mg/dL Normal 1-123 [facility] Comment on above: Result Comment: The total IgG (mg/dL) can be derived by the sum of the subclasses IgG1, IgG2, IgG3 and IgG4 values. However, a confirmatory and more precise total IgG is available by the nephelometric method of total IgG (Test # [id number]). REFERENCE INTERVAL: Immunoglobulin G Subclass 4 Access complete set of age- and/or gender-specific reference intervals for this test in the [facility] Test Directory ([employer]). Performed by [facility], [address] [place] [id number] [email or web address], Eduardo Ludwig MD, Lab. Director Performed By: #### P T, LACT3, CMP3, MG3, LIPA4, BILD3, HEMDF #### [address] [place], [place] Add on test from HISon 10-13 Add on test from HIS Accepted Normal [facility] Comment on above: Result Comment: Spec imen available & acceptable for analysis. Performed By: #### P T, LACT3, CMP3, MG3, LIPA4, BILD3, HEMDF #### [facility] [address] [place] [address] Amylaseon 10-13-2019 Amylase [Catalytic activity/Vol] 132 U/L High 30-130 [facility] Comment on above: Performed By: #### P T, LACT3, CMP3, MG3, LIPA4, BILD3, HEMDF #### [address] Basic Metabolic Panelon 12- Calcium [Mass/Vol] 8.6 mg/dL Normal 8.4-10.4 [facility] Comment on above: Performed By: #### P T, LACT3, CMP3, MG3, LIPA4, BILD3, HEMDF #### [address] [address] [place] Glucose [Mass/Vol] 82 mg/dL Normal 70-100 [facility] Comment on above: Performed By: #### P T, LACT3, CMP3, MG3, LIPA4, BILD3, HEMDF #### [address] [place] Anion gap [Moles/Vol] 10 Normal [facility] Comment on above: Performed By: #### P T, LACT3, CMP3, MG3, LIPA4, BILD3, HEMDF #### [address] [address] [place] CO2 [Moles/Vol] 23 mmol/L Normal 22-30 [facility] Comment on above: Performed By: #### P T, LACT3, CMP3, MG3, LIPA4, BILD3, HEMDF #### [address] [place] Creatinine [Mass/Vol] 0.76 mg/dL Normal 0.52-1.25 [facility] Comment on above: Performed By: #### P T, LACT3, CMP3, MG3, LIPA4, BILD3, HEMDF #### [address] [address] [place] GFR/1.73 sq M predicted among blacks MDRD (S/P/Bld) [Vol rate/Area] mL/min/{1.73_m2} Normal >60 [facility] Comment on above: Performed By: #### P T, LACT3, CMP3, MG3, LIPA4, BILD3, HEMDF #### [facility] [address], [place] GFR/1.73 sq M predicted among non-blacks MDRD (S/P/Bld) [Vol rate/Area] mL/min/{1.73_m2} Normal >60 [facility] Comment on above: Result Comment: Sour ce- MDRD equation with creatinine calibration to IDMS(NKDEP) eGFR not recommended for drug dose adjustment Performed By: #### P T, LACT3, CMP3, MG3, LIPA4, BILD3, HEMDF #### [address] [place], [place] Urea nitrogen [Mass/Vol] 11 mg/dL Normal 7-20 [facility] Comment on above: Performed By: #### P T, LACT3, CMP3, MG3, LIPA4, BILD3, HEMDF #### [address] Potassium [Moles/Vol] 3.9 mmol/L Normal 3.5-5.1 [facility] Comment on above: Performed By: #### P T, LACT3, CMP3, MG3, LIPA4, BILD3, HEMDF #### [address] [address] [place] Chloride [Moles/Vol] 109 mmol/L High 98-107 [facility] Comment on above: Performed By: #### P T, LACT3, CMP3, MG3, LIPA4, BILD3, HEMDF #### [address] [address] [place] Sodium [Moles/Vol] 142 mmol/L Normal 135-145 [facility] Comment on above: Performed By: #### P T, LACT3, CMP3, MG3, LIPA4, BILD3, HEMDF #### [address] [place] Hepatic Functionon 9 ALP [Catalytic activity/Vol] 99 U/L Normal 38-126 [facility] Comment on above: Performed By: #### P T, LACT3, CMP3, MG3, LIPA4, BILD3, HEMDF #### [address] [place], [place] ALT [Catalytic activity/Vol] 73 U/L High 13-69 [facility] Comment on above: Performed By: #### P T, LACT3, CMP3, MG3, LIPA4, BILD3, HEMDF #### [address] [place], [place] AST [Catalytic activity/Vol] 45 U/L Normal 15-46 [facility] Comment on above: Performed By: #### P T, LACT3, CMP3, MG3, LIPA4, BILD3, HEMDF #### [address] [place] Bilirubin [Mass/Vol] 1.1 mg/dL Normal 0.2-1.3 [facility] Comment on above: Performed By: #### P T, LACT3, CMP3, MG3, LIPA4, BILD3, HEMDF #### [address] [place], [place] Bilirubin.direct [Mass/Vol] 0.0 mg/dL Normal 0.0-0.3 [facility] Comment on above: Performed By: #### P T, LACT3, CMP3, MG3, LIPA4, BILD3, HEMDF #### [address] [place], [place] Protein [Mass/Vol] 6.6 g/dL Normal 6.3-8.2 [facility] Comment on above: Performed By: #### P T, LACT3, CMP3, MG3, LIPA4, BILD3, HEMDF #### [address] [place] Albumin [Mass/Vol] 3.7 g/dL Normal 3.5-5.0 [facility] Comment on above: Performed By: #### P T, LACT3, CMP3, MG3, LIPA4, BILD3, HEMDF #### [address] [place] Lipaseon 10-13-2019 Lipase [Catalytic activity/Vol] 748 U/L High 23-300 [facility] Comment on above: Performed By: #### P T, LACT3, CMP3, MG3, LIPA4, BILD3, HEMDF #### [address] [place], [place] Lipid Panelon 10-13-2019 Cholesterol in HDL [Mass/Vol] 36 mg/dL Low 40-60 [facility] Comment on above: Performed By: #### P T, LACT3, CMP3, MG3, LIPA4, BILD3, HEMDF #### [address] [place], [place] Cholesterol.total/Chol esterol in HDL [Mass ratio] 5 Normal [facility] Comment on above: Result Comment: Ref Range: < 3 Low Risk for CHD 3-6 Mod Risk for CHD > 6 High Risk for CHD Performed By: #### P T, LACT3, CMP3, MG3, LIPA4, BILD3, HEMDF #### [address] [place] Protein [Mass/Vol] 111 mg/dL Abnormal <100 [facility] Comment on above: Performed By: #### P T, LACT3, CMP3, MG3, LIPA4, BILD3, HEMDF #### [address] [place] Triglyceride [Mass/Vol] 87 mg/dL Normal <150 [facility] Comment on above: Performed By: #### P T, LACT3, CMP3, MG3, LIPA4, BILD3, HEMDF #### [address] [place] Cholesterol [Mass/Vol] 164 mg/dL Normal < 200 [facility] Comment on above: Performed By: #### P T, LACT3, CMP3, MG3, LIPA4, BILD3, HEMDF #### [address] [place], [place] MRI Abdomen w/o Contraston 1 12-14-2018 MRI Abdomen w/o Contrast Patient Name: CHLEO CHENEY MRI Exam Date/Time 10/12/2019 19:48:46 EST Exam MRI Abdomen w/o Contrast Ordering Physician [id number] Miguel AngelSUSAN ROQUE Accession Number [id number] CPT4 Codes 13138 () Reason For Exam hx of recurring pancreatitis, hx of biliary stricture, eval biliary tree for possible stricture, s/p lap corina Report EXAMINATION: MRI of the abdomen without contrast and MRCP. COMPARISON: 07/12/2019. REASON FOR STUDY: Recurrent pancreatitis; history of biliary stricture; post- laparoscopic cholecystectomy. TECHNIQUE: Axial and coronal spin and gradient-echo T1 and T2-weighted as well as diffusion-weighted images were obtained. Thick-slab coronal breath-hold T2-weighted images were obtained. Rotational MIP MRCP was rendered from the source images. FINDINGS: SOLID ORGANS: Pancreas: Marked attenuation of the distal pancreatic body with no appreciable inflammatory change or abnormal fluid collection. Normal appearance of pancreatic head, neck and tail. Moderate distention of the pancreatic duct proximally measuring about 4.4 mm in the pancreatic body. Pancreatic duct is not clearly delineated in the attenuated segment. Liver, spleen and adrenal glands appear normal. BILIARY TREE: Mild distention of intrahepatic bile ducts. Extrahepatic bile ducts are moderately distended with the common hepatic duct measuring 14.1 mm proximally. Common bile duct measures 8.2 mm proximally and tapers normally to the ampulla. No intraluminal filling defect is observed. Gallbladder has been removed. SYSTEM: The kidneys appear normal. The ureters are not appreciably dilated. GI SYSTEM: The stomach and bowel loops appear normal. PERITONEUM, RETROPERITONEUM AND MESENTERY: No inflammatory change, free fluid or abnormal mass is shown. VASCULATURE: No abnormality seen. MUSCULOSKELETAL: Osseous structures appear intact. No extraskeletal soft tissue abnormality noted. LUNG BASES: No abnormality noted. CONCLUSIONS: 1. Segmental atrophy of the pancreatic body with pancreatic ductal stricture. Proximally in the pancreatic duct measures 4.4 mm in diameter. 2. Moderate biliary dilatation with no appreciable stricture or intraluminal filling defect. Report Dictated on Final Dictated: 10/13/2019 6:45 am Dictating Physician: MD ROGEL B NELSON Signed Date and Time: 10/13/2019 7:09 am Signed by: MD ROGEL B NELSON Transcribed Date and Time: 10/13/2019 6:45 Normal [facility] Comp Panel with Mg Reflexon 10-12-2019 ALP [Catalytic activity/Vol] 109 U/L Normal 38-126 [facility] Comment on above: Performed By: #### P T, LACT3, CMP3, MG3, LIPA4, BILD3, HEMDF #### [address] [place], [place] ALT [Catalytic activity/Vol] 72 U/L High 13-69 [facility] Comment on above: Performed By: #### P T, LACT3, CMP3, MG3, LIPA4, BILD3, HEMDF #### [address] [place], [place] Calcium [Mass/Vol] 8.9 mg/dL Normal 8.4-10.4 [facility] Comment on above: Performed By: #### P T, LACT3, CMP3, MG3, LIPA4, BILD3, HEMDF #### [address] [place], [place] Glucose [Mass/Vol] 104 mg/dL High 70-100 [facility] Comment on above: Performed By: #### P T, LACT3, CMP3, MG3, LIPA4, BILD3, HEMDF #### [address] [place], [place] Anion gap [Moles/Vol] 7 Normal [facility] Comment on above: Performed By: #### P T, LACT3, CMP3, MG3, LIPA4, BILD3, HEMDF #### [address] [place], [place] AST [Catalytic activity/Vol] 36 U/L Normal 15-46 [facility] Comment on above: Performed By: #### P T, LACT3, CMP3, MG3, LIPA4, BILD3, HEMDF #### [address] [place], [place] Bilirubin [Mass/Vol] 0.5 mg/dL Normal 0.2-1.3 [facility] Comment on above: Performed By: #### P T, LACT3, CMP3, MG3, LIPA4, BILD3, HEMDF #### [facility] [address], [place] CO2 [Moles/Vol] 23 mmol/L Normal 22-30 [facility] Comment on above: Performed By: #### P T, LACT3, CMP3, MG3, LIPA4, BILD3, HEMDF #### [address] [place], [place] Creatinine [Mass/Vol] 0.76 mg/dL Normal 0.52-1.25 [facility] Comment on above: Performed By: #### P T, LACT3, CMP3, MG3, LIPA4, BILD3, HEMDF #### [address] [place], [place] GFR/1.73 sq M predicted among blacks MDRD (S/P/Bld) [Vol rate/Area] mL/min/{1.73_m2} Normal >60 [facility] Comment on above: Performed By: #### P T, LACT3, CMP3, MG3, LIPA4, BILD3, HEMDF #### [address] [place], [place] GFR/1.73 sq M predicted among non-blacks MDRD (S/P/Bld) [Vol rate/Area] mL/min/{1.73_m2} Normal >60 [facility] Comment on above: Result Comment: Sour ce- MDRD equation with creatinine calibration to IDMS(NKDEP) eGFR not recommended for drug dose adjustment Performed By: #### P T, LACT3, CMP3, MG3, LIPA4, BILD3, HEMDF #### [address] [place], [place] Protein [Mass/Vol] 7.2 g/dL Normal 6.3-8.2 [facility] Comment on above: Performed By: #### P T, LACT3, CMP3, MG3, LIPA4, BILD3, HEMDF #### [address] [place], [place] Urea nitrogen [Mass/Vol] 15 mg/dL Normal 7-20 [facility] Comment on above: Performed By: #### P T, LACT3, CMP3, MG3, LIPA4, BILD3, HEMDF #### [address] [place], [place] Potassium [Moles/Vol] 4.1 mmol/L Normal 3.5-5.1 [facility] Comment on above: Performed By: #### P T, LACT3, CMP3, MG3, LIPA4, BILD3, HEMDF #### [address] [place], [place] Sodium [Moles/Vol] 140 mmol/L Normal 135-145 [facility] Comment on above: Performed By: #### P T, LACT3, CMP3, MG3, LIPA4, BILD3, HEMDF #### [address] Albumin [Mass/Vol] 4.0 g/dL Normal 3.5-5.0 [facility] Comment on above: Performed By: #### P T, LACT3, CMP3, MG3, LIPA4, BILD3, HEMDF #### [address] [place] Chloride [Moles/Vol] 110 mmol/L High 98-107 [facility] Comment on above: Performed By: #### P T, LACT3, CMP3, MG3, LIPA4, BILD3, HEMDF #### [address] Hemogram w/ Autodiffon 10-12 Abs Baso Cnt 0.0 10*3/uL Normal 0.0-0.2 [facility] Comment on above: Performed By: #### P T, LACT3, CMP3, MG3, LIPA4, BILD3, HEMDF #### [address] Abs Neutrophile Cnt 7.4 10*3/uL High 1.8-7.0 [facility] Comment on above: Performed By: #### P T, LACT3, CMP3, MG3, LIPA4, BILD3, HEMDF #### [address] [place] Basophils/100 WBC (Bld) 0.4 % Normal 0.0-2.0 [facility] Comment on above: Performed By: #### P T, LACT3, CMP3, MG3, LIPA4, BILD3, HEMDF #### [address] [place], [place] Eosinophils (Bld) [#/Vol] 0.1 10*3/uL Normal 0.0-0.5 [facility] Comment on above: Performed By: #### P T, LACT3, CMP3, MG3, LIPA4, BILD3, HEMDF #### [address] [place], [place] Eosinophils/100 WBC (Bld) 0.6 % Low 1.0-6.0 [facility] Comment on above: Performed By: #### P T, LACT3, CMP3, MG3, LIPA4, BILD3, HEMDF #### [address] [place], [place] Erythrocyte distribution width (RBC) [Ratio] 13.8 % Normal 11.5-14.5 [facility] Comment on above: Performed By: #### P T, LACT3, CMP3, MG3, LIPA4, BILD3, HEMDF #### [address] [place], [place] Granulocytes/100 WBC (Bld) 80.8 % High 40.0-80.0 [facility] Comment on above: Performed By: #### P T, LACT3, CMP3, MG3, LIPA4, BILD3, HEMDF #### [address] [place], [place] Hematocrit (Bld) [Volume fraction] 41.7 % Normal 40.0-52.0 [facility] Comment on above: Performed By: #### P T, LACT3, CMP3, MG3, LIPA4, BILD3, HEMDF #### [address] [place] Hemoglobin (Bld) [Mass/Vol] 14.1 g/dL Normal 13.0-18.0 [facility] Comment on above: Performed By: #### P T, LACT3, CMP3, MG3, LIPA4, BILD3, HEMDF #### [address] [place] Lymphocytes (Bld) [#/Vol] 1.1 10*3/uL Normal 1.0-4.3 [facility] Comment on above: Performed By: #### P T, LACT3, CMP3, MG3, LIPA4, BILD3, HEMDF #### [address] [place] Lymphocytes/100 WBC (Bld) 11.6 % Low 20.0-40.0 [facility] Comment on above: Performed By: #### P T, LACT3, CMP3, MG3, LIPA4, BILD3, HEMDF #### [address] MCH (RBC) [Entitic mass] 29.7 pg Normal 26.0-34.0 [facility] Comment on above: Performed By: #### P T, LACT3, CMP3, MG3, LIPA4, BILD3, HEMDF #### [address] MCHC (RBC) [Mass/Vol] 33.9 % Normal 32.0-36.0 [facility] Comment on above: Performed By: #### P T, LACT3, CMP3, MG3, LIPA4, BILD3, HEMDF #### [address] MCV (RBC) [Entitic vol] 87.6 fL Normal 80.0-98.0 [facility] Comment on above: Performed By: #### P T, LACT3, CMP3, MG3, LIPA4, BILD3, HEMDF #### [address] Monocytes (Bld) [#/Vol] 0.6 10*3/uL Normal 0.0-0.8 [facility] Comment on above: Performed By: #### P T, LACT3, CMP3, MG3, LIPA4, BILD3, HEMDF #### [address], [place] Monocytes/100 WBC (Bld) 6.6 % Normal 2.0-10.0 [facility] Comment on above: Performed By: #### P T, LACT3, CMP3, MG3, LIPA4, BILD3, HEMDF #### [address] Platelet mean volume (Bld) [Entitic vol] 8.4 fL Normal 7.4-10.4 [facility] Comment on above: Performed By: #### P T, LACT3, CMP3, MG3, LIPA4, BILD3, HEMDF #### [address], [place] Platelets (Bld) [#/Vol] 164 10*3/uL Normal 140-440 [facility] Comment on above: Performed By: #### P T, LACT3, CMP3, MG3, LIPA4, BILD3, HEMDF #### [address], [place] RBC (Bld) [#/Vol] 4.76 10*6/uL Normal 4.40-5.90 [facility] Comment on above: Performed By: #### P T, LACT3, CMP3, MG3, LIPA4, BILD3, HEMDF #### [address] WBC (Bld) [#/Vol] 9.1 10*3/uL Normal 3.6-10.7 [facility] Comment on above: Performed By: #### P T, LACT3, CMP3, MG3, LIPA4, BILD3, HEMDF #### [address], [place] Lipaseon 10-12-2019 Lipase [Catalytic activity/Vol] 3134 U/L High 23-300 [facility] Comment on above: Performed By: #### P T, LACT3, CMP3, MG3, LIPA4, BILD3, HEMDF #### [address] [id number] Prothrombin Timeon 9 INR Coag (PPP) [Relative time] 1.0 Normal 0.9-1.1 [facility] Comment on above: Result Comment: Tone mmended Anticoagulant Therapy: SEE BELOW ----- INR of 2.0 - 3.0 : - Prophylaxis of Venous Thrombosis (high-risk surgery) - Treatment of Venous Thrombosis - Treatment of Pulmonary Embolism (Includes tissue heart valves, Acute Myocardial Infarction to prevent systemic embolism, Valvular Heart Disease, and Atrial Fibrillation) ----- INR of 2.5 - 3.5 : - Mechanical Prosthetic Valves (high risk) - If oral anticoagulant therapy is used to prevent Myocardial Infarction Performed By: #### P T, LACT3, CMP3, MG3, LIPA4, BILD3, HEMDF #### [address] [id number] PT Coag (PPP) [Time] 10.8 s Normal 9.0-12.0 [facility] Comment on above: Result Comment: . Performed By: #### P T, LACT3, CMP3, MG3, LIPA4, BILD3, HEMDF #### [address] [id number] RF ERCP Biliary and Pancreat ic [place] 09-29-2019 RF ERCP Biliary and Pancreatic Duct Patient Name: CHLOE CHENEY Fluoroscopy Exam Date/Time 09/29/2019 08:09:36 EST Exam RF ERCP Biliary and Pancreatic Duct Ordering Physician AMY ROBERTO Accession Number [id number] CTP4 Codes 95736 () Reason For Exam stent removal Report A total of 0.8 minutes of fluoro time was used in the Endoscopy Suite for this procedure. No other report will be generated. Final Signed Date and Time: 10/26/2019 1:30 pm Signed by: VIDEO SYSTEMS ENGINEER, SYSTEM Transcribed Date and Time: 10/25/2019 2:50 Transcribed By:FARHAN Santos [facility] Op Noteon 09-14-2019 Op Note PATIENT: CHLOE CHENEY ADMISSION DATE: 09/14/2019 SURGERY DATE: 09/14/2019 DATE OF : 1960 AGE: 58 ADMITTING PHYSICIAN: Douglas Morataya MD ATTENDING PHYSICIAN: Douglas Morataya MD DICTATING PHYSICIAN: Douglas Morataya MD OPERATIVE RECORD Procedure: LAPAROSCOPIC CHOLECYSTECTOMY. Preoperative Diagnosis: Biliary pancreatitis. Postoperative Diagnosis: Biliary pancreatitis. Anesthesia: General. Aircraft Painter Apprentice: Ervin Palafox M.D. Estimated Blood Loss: Minimal. 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 He now presents for interval cholecystectomy. Risks, alternatives, and benefits of surgery were discussed with the patient in full and he agreed to proceed. Description of Procedure: After general anesthesia was established, the patient was adequately prepped and draped. An access to peritoneal cavity was achieved through the left upper quadrant Optiview trocar approach. Once intraperitoneal position of trocar was confirmed visually, pneumoperitoneum of 15 mm pressure was Established and 5-mm camera placed. Initial review demonstrated no evidence of injury on entry and no other additional pathology in peritoneal cavity.There was ormal-appearing noninflamed gallbladder. Three additional ports including two 5 mm ports in right upper quadrant followed by one 11 mm port off midline were placed. Graspers were introduced. Gallbladder retracted cranially. There was some degree of fibrosis at the neck of the gallbladder close to the bile duct which required general careful dissection. Once the both cystic artery and cystic duct were circumferentially dissected, they were both clipped in usual fashion with 2 clips proximal and 1 distal and transected in between. Gallbladder was excised from the liver bed and exteriorized in the EndoCatch bag. Final review demonstrated all clips in stable position without evidence of bile leak or bleeding. The 11-mm port site was closed percutaneously with 0 Vicryl on a suture passer. The remaining ports were removed. Pneumoperitoneum was desufflated. The skin was approximated with subcuticular 4-0 Vicryl. Dressing applied. The patient extubated and transferred to recovery room in stable condition. By the end of procedure, all instrument, lap, needle counts were correct x2. I was present for the whole case. Diskriter Job ID: [id number] Douglas Morataya MD DOD:09/14/2019 08:48 A Yaneth DOT:09/14/2019 09:25 A Job Number: [id number] Document Number: [id number] cc: Douglas Morataya MD [address] [place] [address] 2 A [facility] [address] [facility] Surgical Pathologyon 019 Surgical Pathology [id number] [facility] PATHOLOGY AND LABORATORY MEDICINE [address] [place], [place] [id number] FINAL SURGICAL PATHOLOGY REPORT NAME: CHLOE CHENEY Dion N [id number] : 1960 58 Y Tata [facility] NO.: [id number] LOCATION: [place] [address] PROCEDURE 09/14/2019 DATE: SURGEON: DOUGLAS MORATAYA M.D. RECEIVED 09/14/2019 DATE: ATTENDING: DOUGLAS MORATAYA M.D. REPORT DATE: 09/15/2019 COPIES TO: DIAGNOSIS: GALLBLADDER - ACUTE AND CHRONIC CHOLECYSTITIS, WITH CHOLELITHIASIS. BENNETT/KMS1 Signature> CANDI ROGERS M.D. CLINICAL INFORMATION: Gallstones SPECIMEN: GALLBLADDER GROSS DESCRIPTION: Gallbladder Received in formalin is an intact gallbladder that measures 9 x 4 x 2.5 cm. The serosal surface is pink hilario to reddish purple. Upon opening the gallbladder the lumen contains thin green somewhat mucoid bile. Upon opening the specimen contains thin to mucoid green bile and demonstrates a mucosa that is yellow green bile stained. The wall of the gallbladder averages 0.2 cm in thickness and contains a slightly nodular cystic lesion within the base of the body of the gallbladder that measures 1 cm in greatest dimension. This thickened area contains small cysts and is otherwise grossly unremarkable. No calculi are identified within the cystic duct, gallbladder, or within the container. Multiple hostess party sales representative sections are submitted in two cassettes with the nodular submitted in cassette 2. (bits ss, 2) JCK/ANASTASIYA Disclaimer: The following statement applies to all immunohistochemistry, in situ hybridization, molecular studies, and immunofluorescence testing. The use of one or more reagents in the above tests is regulated as an analyte specific reagent (ASR). These tests were developed and their performance characteristics determined by the clinical laboratories of [facility]. They have not been cleared by the US Food and Drug Administration (FDA). The FDA has determined that such clearance or approval is not necessary. All the above immunostains were performed on paraffin embedded tissue. Appropriate positive and negative controls (where applicable) were run in parallel with the patient's specimen; these controls showed expected staining pattern, with acceptable intensity of staining. Immunohistochemical assays have not been validated on decalcified tissues. Results should be interpreted with caution given the raised possibility of false negativity on decalcified specimens. Professional Performing Location: [place] [address] [place] [address]. DEPARTMENT OF PATHOLOGY AND LABORATORY MEDICINE [place], [place] [address] Normal [facility] Cytology, Non-Gynon 07-14-20 Cytology report Cyto stain.thin prep Doc (Cvx/Vag) SEE BELOW [facility], [place] 1 [facility] [id number] DEPARTMENT OF PATHOLOGY AND [facility] LABORATORY MEDICINE [address] [facility] [place] [address] FINAL MEDICAL CYTOLOGY REPORT NAME: CHLOE CHENEY : 1960 58 Y M COLT NO.: [id number] LOCATION: [address] [place] [address] [facility]3 PROCEDURE 07/12/2019 DATE: PHYSICIAN: DANDY WAYNE M.D. RECEIVED DATE: 07/13/2019 ATTENDING: DANDY WAYNE M.D. REPORT DATE: 07/14/2019 COPIES TO: KRAIG RANGEL CNP; GERARDO PETERSEN MD CLINICAL DATA: DIAGNOSIS NO MALIGNANT CELLS IDENTIFIED. ADDITIONAL COMMENTS Degenerative cell changes present. Reactive cellular changes. SPECIMEN: COMMON BILE DUCT BRUSHING PROCEDURE(S): BRUSHINGS GROSS DESCRIPTION: 15 ml, clear fluid, with brush in cytolyt Materials Prepared & Examined: Monolayers . . . . . . . . . . . . 1 SKS Screened by ALESSIA KING MD The following statement applies to all immunohistochemistry, in situ hybridization, molecular studies, and immunofluorescence testing. The use of one or more reagents in the above tests is regulated as an analyte specific reagent (ASR). These tests were developed and their performance characteristics determined by the clinical laboratories of [facility]. They have not been cleared by the US Food and Drug Administration (FDA). The FDA has determined that such clearance or approval is not necessary. All the above immunostains were performed on paraffin embedded tissue. Appropriate positive and negative controls (where applicable) were run in parallel with the patient's specimen; these controls showed expected staining pattern, with acceptable intensity of staining. Immunohistochemical assays have not been validated on decalcified tissues. Results should be interpreted with caution given the raised possibility of false negativity on decalcified specimens. Case reviewed at [facility] [address] [place] [address]. DEPARTMENT OF PATHOLOGY AND LABORATORY MEDICINE [place], [place] [address] [place], [place] Surgical Pathologyon 019 Sodium [Moles/Vol] SEE BELOW [place], [place] 1 [id number] [facility] DEPARTMENT OF [facility] PATHOLOGY AND LABORATORY MEDICINE [address] [place], [place] [id number] FINAL SURGICAL PATHOLOGY REPORT NAME: CHLOE CHENEY N [id number] : 1960 58 Y M [facility] NO.: [id number] LOCATION: [address] [place] [address] 01 PROCEDURE 07/12/2019 DATE: SURGEON: AMY ROBERTO MD RECEIVED 07/13/2019 DATE: ATTENDING: DANDY WAYNE M.D. 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 Comment: Multiple deeper levels were reviewed. There is no evidence of malignancy. The focal superficial epithelial atypia is favored to be reactive at this time given the presence of significant inflammation; however, if the clinical concern of a mass lesion or malignancy remains, close follow-up with repeat biopsy is recommended. Dr. Rogers has reviewed this case and concurs with the above interpretation. HORACIO/HARSHF Signature> EMILY GIRALDO M.D. CLINICAL INFORMATION: Rule out malignancy SPECIMEN: BIOPSY GROSS DESCRIPTION: Ampullary biopsy Received in formalin are multiple segments of la tissue aggregating to 0.4 x 0.4 cm. The specimen is entirely submitted in a single cassette. (bits ns, 1) JCK/ANASTASIYA Disclaimer: The following statement applies to all immunohistochemistry, in situ hybridization, molecular studies, and immunofluorescence testing. The use of one or more reagents in the above tests is regulated as an analyte specific reagent (ASR). These tests were developed and their performance characteristics determined by the clinical laboratories of [facility]. They have not been cleared by the US Food and Drug Administration (FDA). The FDA has determined that such clearance or approval is not necessary. All the above immunostains were performed on paraffin embedded tissue. Appropriate positive and negative controls (where applicable) were run in parallel with the patient's specimen; these controls showed expected staining pattern, with acceptable intensity of staining. Immunohistochemical assays have not been validated on decalcified tissues. Results should be interpreted with caution given the raised possibility of false negativity on decalcified specimens. Professional Performing Location: [address] [address]. DEPARTMENT OF PATHOLOGY AND LABORATORY MEDICINE [place], [place] [address] [place], [place] CR Chest Portableon 07-13-20 19 CR Chest Portable Patient Name: CHLOE NIXON RD Diagnostic Radiology Exam Date/Time 07/13/2019 17:13:35 EDT Exam CR Chest Portable Ordering Physician GENA CORDOVA Accession Number [id number] CPT4 Codes 83595 () Reason For Exam line placement Report SINGLE FRONTAL VIEW OF THE CHEST CLINICAL INDICATION: line placement TECHNIQUE: Single frontal view of the chest COMPARISON: 03/23/2019 FINDINGS: Lungs are clear. No pleural effusion or pneumothorax. No vascular congestion. Heart size normal. Deformity of left scapula and left upper ribs compatible with previous fractures. Left PICC catheter tip is in the SVC. IMPRESSION: 1. No acute finding. Report Dictated on Final Dictated: 07/13/2019 6:11 pm Dictating Physician: MD HATHAWAY JOHN R Signed Date and Time: 07/13/2019 6:11 pm Signed by: MD HATHAWAY JOHN R Transcribed Date and Time: 07/13/2019 6:11 Normal [facility] Culture Blood #1on 9 Blood Culture, Routine Isolated: [place], [place] Blood Culture, Routine Enterobacteriacea e DETECTED Presumptive identification performed using [place] PCR methodology; confirmatory identification to follow. The following targets were NOT DETECTED unless otherwise stated above in report: Staphylococcus aureus, Staphylococcus species, Enterococcus species, Streptococcus species, Streptococcus agalactiae (Group B), Streptococcus pneumoniae, Streptococcus pyogenes (Group A), Listeria monocytogenes, Acinetobacter baumannii, Enterobacteriaceae, Enterobacter cloacae complex, E. coli, Klebsiella oxytoca, Klebsiella pneumoniae, Proteus species, Serratia marcescens, Pseudomonas aeruginosa, Haemophilus influenzae, Neisseria meningitidis, Kelsey albicans, Kelsey glabrata, Kelsey krusei, Kelsey parapsilosis, Kelsey tropicalis. The following antibiotic resistance targets were NOT DETECTED unless otherwise stated above in report: mecA (methicillin resistance gene) and van A/B (vancomycin resistance gene). Abnormal [place], [place] Blood Culture, Routine Citrobacter Abnormal [place], [place] Interpretation and review of laboratory results Abnormal [place] Test Performed by [address] [address] Specimen Source Comment:Blood [place], [place] Culture Blood #2on 9 Blood Culture, Routine Citrobacter Abnormal [place], [place] Blood Culture, Routine Isolated: For identification and/or sensitivity, refer to culture collected on: 07/10/2019 at 1320 ([id number]) [place], [place] Interpretation and review of laboratory results Abnormal [place] Test Performed by [facility], [address] [place] [address] Specimen Source Comment:Blood [facility] CHEST PORTABLEon 07-13-20 19 [facility], [facility] - 07/13/2019 6:13 PM EDT Patient Name: CHLOE CHENEY ---Diagnostic Radiology--- Exam Date/Time 07/13/2019 17:13:35 EDT Exam CR Chest Portable Ordering Physician GENA CORDOVA Accession Number [id number] CPT4 Codes 46127 () Reason For Exam line placement Report SINGLE FRONTAL VIEW OF THE CHEST CLINICAL INDICATION: line placement TECHNIQUE: Single frontal view of the chest COMPARISON: 03/23/2019 FINDINGS: Lungs are clear. No pleural effusion or pneumothorax. No vascular congestion. Heart size normal. Deformity of left scapula and left upper ribs compatible with previous fractures. Left PICC catheter tip is in the SVC. IMPRESSION: 1. No acute finding. Report Dictated on --- Final --- Dictated: 07/13/2019 6:11 pm Dictating Physician: MD HATHAWAY JOHN R Signed Date and Time: 07/13/2019 6:11 pm Signed by: MD HATHAWAY JOHN R Transcribed Date and Time: 07/13/2019 6:11 [facility] LACEY Patient Name: CHLOE NIXON RD ---Diagnostic Radiology--- Exam Date/Time 07/13/2019 17:13:35 EDT Exam CR Chest Portable Ordering Physician GENA CORDOVA Accession Number [id number] CPT4 Codes 62763 () Reason For Exam line placement Report SINGLE FRONTAL VIEW OF THE CHEST CLINICAL INDICATION: line placement TECHNIQUE: Single frontal view of the chest COMPARISON: 03/23/2019 FINDINGS: Lungs are clear. No pleural effusion or pneumothorax. No vascular congestion. Heart size normal. Deformity of left scapula and left upper ribs compatible with previous fractures. Left PICC catheter tip is in the SVC. IMPRESSION: 1. No acute finding. Report Dictated on --- Final --- Dictated: 07/13/2019 6:11 pm Dictating Physician: MD HATHAWAY JOHN R Signed Date and Time: 07/13/2019 6:11 pm Signed by: MD HATHAWAY JOHN R Transcribed Date and Time: 07/13/2019 6:11 [facility], [place] Basic Metabolic Panel 06-27 Calcium [Mass/Vol] 8.8 mg/dL Normal 8.4-10.4 [facility] Comment on above: Performed By: #### C UA2 #### [facility] [address] [place], [place] Glucose [Mass/Vol] 91 mg/dL Normal 70-100 [facility] Comment on above: Performed By: #### C UA2 #### [place] [address] [address] [place], [place] Urea nitrogen [Mass/Vol] 10 mg/dL Normal 7-20 [facility] Comment on above: Performed By: #### C UA2 #### [facility] [address], [place] Anion gap [Moles/Vol] 10 Normal [facility] Comment on above: Performed By: #### C UA2 #### [place] [address] [address] [place], [place] CO2 [Moles/Vol] 18 mmol/L Low 22-30 [facility] Comment on above: Performed By: #### C UA2 #### [facility] [address], [place] Creatinine [Mass/Vol] 0.68 mg/dL Normal 0.52-1.25 [facility] Comment on above: Performed By: #### C UA2 #### [facility] [address], [place] GFR/1.73 sq M predicted among blacks MDRD (S/P/Bld) [Vol rate/Area] mL/min/{1.73_m2} Normal >60 [facility] Comment on above: Performed By: #### C UA2 #### [facility] [address] [place], [place] GFR/1.73 sq M predicted among non-blacks MDRD (S/P/Bld) [Vol rate/Area] mL/min/{1.73_m2} Normal >60 [facility] Comment on above: Result Comment: Sour ce- MDRD equation with creatinine calibration to IDMS(NKDEP) eGFR not recommended for drug dose adjustment Performed By: #### C UA2 #### [place] [address] [address] [place], [place] Potassium [Moles/Vol] 3.6 mmol/L Normal 3.5-5.1 [facility] Comment on above: Performed By: #### C UA2 #### [address] Sodium [Moles/Vol] 138 mmol/L Normal 135-145 [facility] Comment on above: Performed By: #### C UA2 #### [place] [address] [address] [place], [place] Chloride [Moles/Vol] 110 mmol/L High 98-107 [facility] Comment on above: Performed By: #### C UA2 #### [address] Anion gap [Moles/Vol] 10 mmol/L [place], [place] Calcium [Mass/Vol] 8.8 mg/dL 8.4 - 10. 4 mg/dL [place] Chloride [Moles/Vol] 110 mmol/L High 98 - 10 7 mmol/L [place] CO2 [Moles/Vol] 18 mmol/L Low 22 - 30 mmol/L [place] Creatinine [Mass/Vol] 0.68 mg/dL 0.52 - 1.25 mg/dL [place] EGFR IF NonAfrican [place] >60.0 >60 mL/min [place] Comment on above: Source- MDRD equatio n with creatinine calibration to IDMS(NKDEP) eGFR not recommended for drug dose adjustment GFR/1.73 sq M predicted among blacks MDRD (S/P/Bld) [Vol rate/Area] mL/min/{1.73_m2} >60 mL/min [place] Glucose [Mass/Vol] 91 mg/dL 70 - 100 mg/dL [place] Potassium [Moles/Vol] 3.6 mmol/L 3.5 - 5.1 mmol/L [place] Sodium [Moles/Vol] 138 mmol/L 135 - 145 mmol/L [place] Urea nitrogen [Mass/Vol] 10 mg/dL 7 - 20 mg/dL [place] CBCon 07-12-2019 Erythrocyte distribution width (RBC) [Ratio] 19.7 % High 11.5 - 14.5 % [place] Hematocrit (Bld) [Volume fraction] 38.5 % Low 40 - 52 % [place] Hemoglobin (Bld) [Mass/Vol] 13.1 g/dL 13 - 18 g/dL [place] Interpretation and review of laboratory results Abnormal [place] MCH (RBC) [Entitic mass] 29.4 pg 26 - 34 pg [place] MCHC (RBC) [Mass/Vol] 34.0 % 32 - 36 % [place] MCV (RBC) [Entitic vol] 86.4 fL 80 - 98 fL [place] Platelet mean volume (Bld) [Entitic vol] 8.8 fL 7.4 - 10.4 fL [place] Platelets (Bld) [#/Vol] 149 10*3/uL 140 - 440 10*3/uL [place] RBC (Bld) [#/Vol] 4.46 10*6/uL 4.4 - 5.9 10*6/uL [place] WBC (Bld) [#/Vol] 8.2 10*3/uL 3.6 - 10.7 10*3/uL [place] Test Performed by [facility], [address] [place] [address], [place] [address] [place] Hemogramon 07-12-2019 Erythrocyte distribution width (RBC) [Ratio] 19.7 % High 11.5-14.5 [facility] Comment on above: Performed By: #### C UA2 #### [facility] [address], [place] Hematocrit (Bld) [Volume fraction] 38.5 % Low 40.0-52.0 [facility] Comment on above: Performed By: #### C UA2 #### [facility] [address], [place] Hemoglobin (Bld) [Mass/Vol] 13.1 g/dL Normal 13.0-18.0 [facility] Comment on above: Performed By: #### C UA2 #### [facility] [address], [place] MCH (RBC) [Entitic mass] 29.4 pg Normal 26.0-34.0 [facility] Comment on above: Performed By: #### C UA2 #### [facility] [address], [place] MCHC (RBC) [Mass/Vol] 34.0 % Normal 32.0-36.0 [facility] Comment on above: Performed By: #### C UA2 #### [facility] [address], [place] MCV (RBC) [Entitic vol] 86.4 fL Normal 80.0-98.0 [facility] Comment on above: Performed By: #### C UA2 #### [facility] [address], [place] Platelet mean volume (Bld) [Entitic vol] 8.8 fL Normal 7.4-10.4 [facility] Comment on above: Performed By: #### C UA2 #### [facility] [address], [place] Platelets (Bld) [#/Vol] 149 10*3/uL Normal 140-440 [facility] Comment on above: Performed By: #### C UA2 #### [facility] [address], [place] RBC (Bld) [#/Vol] 4.46 10*6/uL Normal 4.40-5.90 [facility] Comment on above: Performed By: #### C UA2 #### [facility] [address], [place] WBC (Bld) [#/Vol] 8.2 10*3/uL Normal 3.6-10.7 [facility] Comment on above: Performed By: #### C UA2 #### [facility] [address], [place] Hepatic Functionon 9 ALP [Catalytic activity/Vol] 288 U/L High 38-126 [facility] Comment on above: Performed By: #### C UA2 #### [facility] [address], [place] ALT [Catalytic activity/Vol] 129 U/L High 13-69 [facility] Comment on above: Performed By: #### C UA2 #### [facility] [address], [place] AST [Catalytic activity/Vol] 68 U/L High 15-46 [facility] Comment on above: Performed By: #### C UA2 #### [facility] [address], [place] Bilirubin [Mass/Vol] 5.9 mg/dL High 0.2-1.3 [facility] Comment on above: Performed By: #### C UA2 #### [facility] [address], [place] Bilirubin.direct [Mass/Vol] 2.4 mg/dL High 0.0-0.3 [facility] Comment on above: Performed By: #### C UA2 #### [facility] [address], [place] Protein [Mass/Vol] 6.9 g/dL Normal 6.3-8.2 [facility] Comment on above: Performed By: #### C UA2 #### [facility] [address], [place] Albumin [Mass/Vol] 3.5 g/dL Normal 3.5-5.0 [facility] Comment on above: Performed By: #### C UA2 #### [address] [address] Hepatic Function Panelon Albumin [Mass/Vol] 3.5 g/dL 3.5 - 5 g/dL [place] ALP [Catalytic activity/Vol] 288 U/L High 38 - 126 U/L [place] ALT [Catalytic activity/Vol] 129 U/L High 13 - 69 U/L [place] AST [Catalytic activity/Vol] 68 U/L High 15 - 46 U/L [place] Bilirubin Ql (U) 5.9 mg/dL High 0.2 - 1.3 mg/dL [place] Bilirubin.direct [Mass/Vol] 2.4 mg/dL High 0 - 0.3 mg/dL [place] Protein [Mass/Vol] 6.9 g/dL 6.3 - 8.2 g/dL [place] MRI ABDOMEN WO CONTRASTon Patient Name: CHLOE LUTZ ---MRI--- Exam Date/Time 07/12/2019 08:03:44 EDT Exam MRI Abdomen w/o Contrast Ordering Physician GERARDO HARVEY Accession Number [id number] CPT4 Codes 91641 () Reason For Exam INFECTION, ABDOMEN-PELVIS Report CLINICAL INFORMATION: Abdominal pain extending into the pelvis. History of pancreatitis. Multiecho and multiplanar images of the abdomen are provided without IV contrast. In addition, 3-D MRCP images are acquired. The examination is compared to a previous study dated 05/28/2019. FINDINGS: Again seen is moderate intra and extrahepatic biliary dilatation. The proximal common bile duct is dilated spanning up to 1.6 cm. This tapers to a more normal caliber through the pancreas. Biliary stent is noted. No definite choledochal stones are appreciated. The liver is homogeneous in its signal without focal abnormality. A small amount of sludge is seen layering in the dependent gallbladder lumen. The gallbladder wall remains normal. The head of the pancreas is lobular. A discrete pancreatic mass, however, is not visualized. The inflammatory changes and fluid collection/abscess are less pronounced than that seen previously. The pancreatic duct is not dilated. There is no evidence of hydronephrosis. The bilateral adrenal glands are normal. IMPRESSION: 1. Intra and extrahepatic biliary dilatation. [...] is not appreciated. Report Dictated on Workstation: NeedcheckDS --- Final --- Dictated: 07/12/2019 12:37 pm Dictating Physician: MD CRYSTAL JEFFREY Signed Date and Time: 07/12/2019 1:33 pm Signed by: MD CRYSTAL JEFFREY Transcribed Date and Time: 07/12/2019 12:37 [place], [place] Ph[place], [facility] Incoming Radiology Results From [facility] - 07/12/2019 1:34 PM EDT Patient Name: CHLOE CHENEY ---MRI--- Exam Date/Time 07/12/2019 08:03:44 EDT Exam MRI Abdomen w/o Contrast Ordering Physician GERARDO HARVEY Accession Number [id number] CPT4 Codes 17028 () Reason For Exam INFECTION, ABDOMEN-PELVIS Report CLINICAL INFORMATION: Abdominal pain extending into the pelvis. History of pancreatitis. Multiecho and multiplanar images of the abdomen are provided without IV contrast. In addition, 3-D MRCP images are acquired. The examination is compared to a previous study dated 05/28/2019. FINDINGS: Again seen is moderate intra and extrahepatic biliary dilatation. The proximal common bile duct is dilated spanning up to 1.6 cm. This tapers to a more normal caliber through the pancreas. Biliary stent is noted. No definite choledochal stones are appreciated. The liver is homogeneous in its signal without focal abnormality. A small amount of sludge is seen layering in the dependent gallbladder lumen. The gallbladder wall remains normal. The head of the pancreas is lobular. A discrete pancreatic mass, however, is not visualized. The inflammatory changes and fluid collection/abscess are less pronounced than that seen previously. The pancreatic duct is not dilated. There is no evidence of hydronephrosis. The bilateral adrenal glands are normal. IMPRESSION: 1. Intra and extrahepatic biliary dilatation. [...] is not appreciated. Report Dictated on Workstation: [employer]™ Interactive --- Final --- Dictated: 07/12/2019 12:37 pm Dictating Physician: MD CRYSTAL JEFFREY Signed Date and Time: 07/12/2019 1:33 pm Signed by: MD CRYSTAL JEFFREY Transcribed Date and Time: 07/12/2019 12:37 [place] MRI Abdomen w/o Contraston 0 07-12-2019 MRI Abdomen w/o Contrast Patient Name: CHLOE CHENEY MRI Exam Date/Time 07/12/2019 08:03:44 EDT Exam MRI Abdomen w/o Contrast Ordering Physician [id number] PARMAR Accession Number [id number] CPT4 Codes 22843 () Reason For Exam INFECTION, ABDOMEN-PELVIS Report CLINICAL INFORMATION: Abdominal pain extending into the pelvis. History of pancreatitis. Multiecho and multiplanar images of the abdomen are provided without IV contrast. In addition, 3-D MRCP images are acquired. The examination is compared to a previous study dated 05/28/2019. FINDINGS: Again seen is moderate intra and extrahepatic biliary dilatation. The proximal common bile duct is dilated spanning up to 1.6 cm. This tapers to a more normal caliber through the pancreas. Biliary stent is noted. No definite choledochal stones are appreciated. The liver is homogeneous in its signal without focal abnormality. A small amount of sludge is seen layering in the dependent gallbladder lumen. The gallbladder wall remains normal. The head of the pancreas is lobular. A discrete pancreatic mass, however, is not visualized. The inflammatory changes and fluid collection/abscess are less pronounced than that seen previously. The pancreatic duct is not dilated. There is no evidence of hydronephrosis. The bilateral adrenal glands are normal. IMPRESSION: 1. Intra and extrahepatic biliary dilatation. [...] not appreciated. Report Dictated on Workstation: [id number] Final Dictated: 07/12/2019 12:37 pm Dictating Physician: MD CRYSTAL JEFFREY Signed Date and Time: 07/12/2019 1:33 pm Signed by: MD CRYSTAL JEFFREY Transcribed Date and Time: 07/12/2019 12:37 Normal [facility] Medical Cytology 9 Medical Cytology [facility] [id number] DEPARTMENT OF PATHOLOGY AND [facility], [facility] LABORATORY MEDICINE [address] [place] [address] FINAL MEDICAL CYTOLOGY REPORT NAME: CHLOE CHENEY : 1960 58 Y M BILLING NO.: [id number] LOCATION: [address] [place] [address] INPAT 1503 PROCEDURE 07/12/2019 01 DATE: PHYSICIAN: DANDY WAYNE M.D. RECEIVED DATE: 07/13/2019 ATTENDING: DANDY WAYNE M.D. REPORT DATE: 07/14/2019 COPIES TO: KRAIG RANGEL CNP; GERARDO PETERSEN MD CLINICAL DATA: DIAGNOSIS NO MALIGNANT CELLS IDENTIFIED. ADDITIONAL COMMENTS Degenerative cell changes present. Reactive cellular changes. SPECIMEN: COMMON BILE DUCT BRUSHING PROCEDURE(S): BRUSHINGS GROSS DESCRIPTION: 15 ml, clear fluid, with brush in cytolyt Materials Prepared & Examined: Monolayers . . . . . . . . . . . . 1 SKS Screened by ALESSIA KING MD The following statement applies to all immunohistochemistry, in situ hybridization, molecular studies, and immunofluorescence testing. The use of one or more reagents in the above tests is regulated as an analyte specific reagent (ASR). These tests were developed and their performance characteristics determined by the clinical laboratories of [facility]. They have not been cleared by the US Food and Drug Administration (FDA). The FDA has determined that such clearance or approval is not necessary. All the above immunostains were performed on paraffin embedded tissue. Appropriate positive and negative controls (where applicable) were run in parallel with the patient's specimen; these controls showed expected staining pattern, with acceptable intensity of staining. Immunohistochemical assays have not been validated on decalcified tissues. Results should be interpreted with caution given the raised possibility of false negativity on decalcified specimens. Case reviewed at [address] [address]. DEPARTMENT OF PATHOLOGY AND LABORATORY MEDICINE [place], [place] [address] Normal [facility] Otheron 07-12-2019 Interpretation and review of laboratory results Abnormal [place], [place] Test Performed by [facility], [facility] [place], [place] [id number] [place] [address] RF Fluoroscopy Unlisted Proc edureon 07-12-2019 RF Fluoroscopy Unlisted Procedure Patient Name: CHLOE CHENEY Fluoroscopy Exam Date/Time 07/12/2019 16:22:13 EDT Exam RF Fluoroscopy Unlisted Procedure Ordering Physician AMY ROBERTO Accession Number [id number] [facility]4 Codes 98192 () Reason For Exam ERCP - CBD stenosis Report A total of 4.6 minutes of fluoro time was used in the Endoscopy this procedure. No other report will be generated. Final Signed Date and Time: 07/30/2019 1:08 pm Signed by: VIDEO SYSTEMS ENGINEER, SYSTEM Transcribed Date and Time: 07/30/2019 1:08 Transcribed By:FARHAN [facility] Surgical Pathologyon 019 Surgical Pathology [id number] [facility] DEPARTMENT OF [facility] PATHOLOGY AND LABORATORY MEDICINE [address] [place] [address] [place] [address] FINAL SURGICAL PATHOLOGY REPORT NAME: CHLOE CHENEY : 1960 58 Y M BILLING NO.: [id number] LOCATION: [address] [place] [address] 01 PROCEDURE 07/12/2019 DATE: SURGEON: AMY ROBERTO MD RECEIVED 07/13/2019 DATE: ATTENDING: DANDY WAYNE M.D. 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 Comment: Multiple deeper levels were reviewed. There is no evidence of malignancy. The focal superficial epithelial atypia is favored to be reactive at this time given the presence of significant inflammation; however, if the clinical concern of a mass lesion or malignancy remains, close follow-up with repeat biopsy is recommended. Dr. Rogers has reviewed this case and concurs with the above interpretation. HORACIO/JOSE Signature> EMILY GIRALDO M.D. CLINICAL INFORMATION: Rule out malignancy SPECIMEN: BIOPSY GROSS DESCRIPTION: Ampullary biopsy Received in formalin are multiple segments of la tissue aggregating to 0.4 x 0.4 cm. The specimen is entirely submitted in a single cassette. (bits ns, 1) JCK/ANASTASIYA Disclaimer: The following statement applies to all immunohistochemistry, in situ hybridization, molecular studies, and immunofluorescence testing. The use of one or more reagents in the above tests is regulated as an analyte specific reagent (ASR). These tests were developed and their performance characteristics determined by the clinical laboratories of [facility]. They have not been cleared by the US Food and Drug Administration (FDA). The FDA has determined that such clearance or approval is not necessary. All the above immunostains were performed on paraffin embedded tissue. Appropriate positive and negative controls (where applicable) were run in parallel with the patient's specimen; these controls showed expected staining pattern, with acceptable intensity of staining. Immunohistochemical assays have not been validated on decalcified tissues. Results should be interpreted with caution given the raised possibility of false negativity on decalcified specimens. Professional Performing Location: [address] [address]. DEPARTMENT OF PATHOLOGY AND LABORATORY MEDICINE [place], [place] [address] Normal [facility] Basic Metabolic Panelon 06-27 Calcium [Mass/Vol] 8.6 mg/dL Normal 8.4-10.4 [facility] Comment on above: Performed By: #### C UA2 #### [address] [address] Glucose [Mass/Vol] 93 mg/dL Normal 70-100 [facility] Comment on above: Performed By: #### C UA2 #### [address] [address] Urea nitrogen [Mass/Vol] 13 mg/dL Normal 7-20 [facility] Comment on above: Performed By: #### C UA2 #### [facility] [address], [place] Anion gap [Moles/Vol] 8 Normal [facility] Comment on above: Performed By: #### C UA2 #### [facility] [address], [place] CO2 [Moles/Vol] 19 mmol/L Low 22-30 [facility] Comment on above: Performed By: #### C UA2 #### [place] [address] [address], [place] Creatinine [Mass/Vol] 0.71 mg/dL Normal 0.52-1.25 [facility] Comment on above: Performed By: #### C UA2 #### [place] [address], [place] GFR/1.73 sq M predicted among blacks MDRD (S/P/Bld) [Vol rate/Area] mL/min/{1.73_m2} Normal >60 [facility] Comment on above: Performed By: #### C UA2 #### [place] [address] [address], [place] GFR/1.73 sq M predicted among non-blacks MDRD (S/P/Bld) [Vol rate/Area] mL/min/{1.73_m2} Normal >60 [facility] Comment on above: Result Comment: Sour ce- MDRD equation with creatinine calibration to IDMS(NKDEP) eGFR not recommended for drug dose adjustment Performed By: #### C UA2 #### [facility] [address], [place] Potassium [Moles/Vol] 3.4 mmol/L Low 3.5-5.1 [facility] Comment on above: Performed By: #### C UA2 #### [facility] [address], [place] Sodium [Moles/Vol] 140 mmol/L Normal 135-145 [facility] Comment on above: Performed By: #### C UA2 #### [address] [place] [address] [place] [address] Chloride [Moles/Vol] 112 mmol/L High 98-107 [facility] Comment on above: Performed By: #### C UA2 #### [facility] [address] [place] [address] Basic Metabolic Panel w/ Ref kirti to MGon 07-11-2019 Anion gap [Moles/Vol] 8 mmol/L [place] Calcium [Mass/Vol] 8.6 mg/dL 8.4 - 10. 4 mg/dL [place] Chloride [Moles/Vol] 112 mmol/L High 98 - 10 7 mmol/L [place] CO2 [Moles/Vol] 19 mmol/L Low 22 - 30 mmol/L [place] Creatinine [Mass/Vol] 0.71 mg/dL 0.52 - 1.25 mg/dL [place] EGFR IF NonAfrican Slovak >60.0 >60 mL/min [place] Comment on above: Source- MDRD equatio n with creatinine calibration to IDMS(NKDEP) eGFR not recommended for drug dose adjustment GFR/1.73 sq M predicted among blacks MDRD (S/P/Bld) [Vol rate/Area] mL/min/{1.73_m2} >60 mL/min [place] Glucose [Mass/Vol] 93 mg/dL 70 - 100 mg/dL [place] Potassium [Moles/Vol] 3.4 mmol/L Low 3.5 - 5.1 mmol/L [place] Sodium [Moles/Vol] 140 mmol/L 135 - 145 mmol/L [place] Urea nitrogen [Mass/Vol] 13 mg/dL 7 - 20 mg/dL [place] CBCon 07-11-2019 Erythrocyte distribution width (RBC) [Ratio] 19.9 % High 11.5 - 14.5 % [place] Hematocrit (Bld) [Volume fraction] 39.0 % Low 40 - 52 % [place] Hemoglobin (Bld) [Mass/Vol] 13.4 g/dL 13 - 18 g/dL [place] Interpretation and review of laboratory results Abnormal [place] MCH (RBC) [Entitic mass] 29.7 pg 26 - 34 pg [place] MCHC (RBC) [Mass/Vol] 34.4 % 32 - 36 % [place] MCV (RBC) [Entitic vol] 86.4 fL 80 - 98 fL [place] Platelet mean volume (Bld) [Entitic vol] 8.9 fL 7.4 - 10.4 fL [place] Platelets (Bld) [#/Vol] 138 10*3/uL Low 140 - 440 10*3/uL [place] RBC (Bld) [#/Vol] 4.52 10*6/uL 4.4 - 5.9 10*6/uL [place] WBC (Bld) [#/Vol] 8.8 10*3/uL 3.6 - 10.7 10*3/uL [place] Test Performed by [facility], [address] [place] [id number] [place] [address] Hemogramon 07-11-2019 Erythrocyte distribution width (RBC) [Ratio] 19.9 % High 11.5-14.5 [facility] Comment on above: Performed By: #### C UA2 #### [address] [address] Hematocrit (Bld) [Volume fraction] 39.0 % Low 40.0-52.0 [facility] Comment on above: Performed By: #### C UA2 #### [address] [address] Hemoglobin (Bld) [Mass/Vol] 13.4 g/dL Normal 13.0-18.0 [facility] Comment on above: Performed By: #### C UA2 #### [address] [address] MCH (RBC) [Entitic mass] 29.7 pg Normal 26.0-34.0 [facility] Comment on above: Performed By: #### C UA2 #### [address] [place], [place] MCHC (RBC) [Mass/Vol] 34.4 % Normal 32.0-36.0 [facility] Comment on above: Performed By: #### C UA2 #### [place] [address] [address] [place], [place] MCV (RBC) [Entitic vol] 86.4 fL Normal 80.0-98.0 [facility] Comment on above: Performed By: #### C UA2 #### [place] [address] [address] [place], [place] Platelet mean volume (Bld) [Entitic vol] 8.9 fL Normal 7.4-10.4 [facility] Comment on above: Performed By: #### C UA2 #### [place] [address] [address] [place], [place] Platelets (Bld) [#/Vol] 138 10*3/uL Low 140-440 [facility] Comment on above: Performed By: #### C UA2 #### [place] [address] [address] [place], [place] RBC (Bld) [#/Vol] 4.52 10*6/uL Normal 4.40-5.90 [facility] Comment on above: Performed By: #### C UA2 #### [place] [address] [place], [place] WBC (Bld) [#/Vol] 8.8 10*3/uL Normal 3.6-10.7 [facility] Comment on above: Performed By: #### C UA2 #### [place] [address] [place], [place] Hepatic Functionon 9 ALP [Catalytic activity/Vol] 287 U/L High 38-126 [facility] Comment on above: Performed By: #### C UA2 #### [place] [address] [place], [place] ALT [Catalytic activity/Vol] 154 U/L High 13-69 [facility] Comment on above: Performed By: #### C UA2 #### [place] [address] [place], [place] AST [Catalytic activity/Vol] 78 U/L High 15-46 [facility] Comment on above: Performed By: #### C UA2 #### [facility] [address], [place] Bilirubin [Mass/Vol] 6.2 mg/dL High 0.2-1.3 [facility] Comment on above: Performed By: #### C UA2 #### [facility] [address], [place] Protein [Mass/Vol] 6.4 g/dL Normal 6.3-8.2 [facility] Comment on above: Performed By: #### C UA2 #### [place] [address] [place], [place] Bilirubin.direct [Mass/Vol] 2.9 mg/dL High 0.0-0.3 [facility] Comment on above: Performed By: #### C UA2 #### [place] [address] [place], [place] Albumin [Mass/Vol] 3.3 g/dL Low 3.5-5.0 [facility] Comment on above: Performed By: #### C UA2 #### [place] [address] [place], [place] Hepatic Function Panelon Albumin [Mass/Vol] 3.3 g/dL Low 3.5 - 5 g/dL [place] ALP [Catalytic activity/Vol] 287 U/L High 38 - 126 U/L [place] ALT [Catalytic activity/Vol] 154 U/L High 13 - 69 U/L [place] AST [Catalytic activity/Vol] 78 U/L High 15 - 46 U/L [place] Bilirubin Ql (U) 6.2 mg/dL High 0.2 - 1.3 mg/dL [place] Bilirubin.direct [Mass/Vol] 2.9 mg/dL High 0 - 0.3 mg/dL [place] Protein [Mass/Vol] 6.4 g/dL 6.3 - 8.2 g/dL [place] Magnesiumon 07-11-2019 Magnesium [Mass/Vol] 1.9 mg/dL Normal 1.6-2.3 [facility] Comment on above: Performed By: #### C UA2 #### [facility] [address] [place] [address] Magnesium [Mass/Vol] 1.9 mg/dL 1.6 - 2 .3 mg/dL [place] Test Performed by [facility], [address] [place] [id number] [place] [address] Otheron 07-11-2019 Interpretation and review of laboratory results Abnormal [place] Test Performed by [id number] [place] [address] Add On Lab Teston 07-10-2019 Sodium [Moles/Vol] Accepted [place] Comment on above: Specimen available & acceptable for analysis. Test Performed by [facility], [address] [place] [id number] [place] [address] Add on test from HISon 07-10 Add on test from HIS Accepted Normal [facility] Comment on above: Result Comment: Spec imen available & acceptable for analysis. Performed By: #### A DDON #### [facility] [address] [place] [address] Bilirubin, Directon 07-10-20 19 Bilirubin.direct [Mass/Vol] 1.5 mg/dL High 0 - 0.3 mg/dL [place] Bilirubin,Directon 9 Bilirubin.direct [Mass/Vol] 1.5 mg/dL High 0.0-0.3 [facility] Comment on above: Performed By: #### P T, LACT3, CMP3, MG3, LIPA4, BILD3, HEMDF #### [facility] [address] [place] [address] Comp Metabolic Panelon 07-10 ALT [Catalytic activity/Vol] 209 U/L High 13-69 [facility] Comment on above: Result Comment: Slig htly hemolysed, interpret with caution. Performed By: #### P T, LACT3, CMP3, MG3, LIPA4, BILD3, HEMDF #### [place] [address], [place] Calcium [Mass/Vol] 9.2 mg/dL Normal 8.4-10.4 [facility] Comment on above: Performed By: #### P T, LACT3, CMP3, MG3, LIPA4, BILD3, HEMDF #### [facility] [address], [place] Glucose [Mass/Vol] 104 mg/dL High 70-100 [facility] Comment on above: Performed By: #### P T, LACT3, CMP3, MG3, LIPA4, BILD3, HEMDF #### [place] [address] [place] ALP [Catalytic activity/Vol] 277 U/L High 38-126 [facility] Comment on above: Result Comment: Slig htly hemolysed, interpret with caution. Performed By: #### P T, LACT3, CMP3, MG3, LIPA4, BILD3, HEMDF #### [place] [address] [place], [place] Anion gap [Moles/Vol] 12 Normal [facility] Comment on above: Performed By: #### P T, LACT3, CMP3, MG3, LIPA4, BILD3, HEMDF #### [place] [address] [place], [place] AST [Catalytic activity/Vol] 138 U/L High 15-46 [facility] Comment on above: Result Comment: Slig htly hemolysed, interpret with caution. Performed By: #### P T, LACT3, CMP3, MG3, LIPA4, BILD3, HEMDF #### [place] [address] [place] Bilirubin [Mass/Vol] 4.7 mg/dL High 0.2-1.3 [facility] Comment on above: Performed By: #### P T, LACT3, CMP3, MG3, LIPA4, BILD3, HEMDF #### [place] [address] [place] CO2 [Moles/Vol] 21 mmol/L Low 22-30 [facility] Comment on above: Performed By: #### P T, LACT3, CMP3, MG3, LIPA4, BILD3, HEMDF #### [place] [address] [place] Creatinine [Mass/Vol] 0.77 mg/dL Normal 0.52-1.25 [facility] Comment on above: Performed By: #### P T, LACT3, CMP3, MG3, LIPA4, BILD3, HEMDF #### [address] [place] [address] [place] GFR/1.73 sq M predicted among blacks MDRD (S/P/Bld) [Vol rate/Area] mL/min/{1.73_m2} Normal >60 [facility] Comment on above: Performed By: #### P T, LACT3, CMP3, MG3, LIPA4, BILD3, HEMDF #### [place] [address] [place] GFR/1.73 sq M predicted among non-blacks MDRD (S/P/Bld) [Vol rate/Area] mL/min/{1.73_m2} Normal >60 [facility] Comment on above: Result Comment: Sour ce- MDRD equation with creatinine calibration to IDMS(NKDEP) eGFR not recommended for drug dose adjustment Performed By: #### P T, LACT3, CMP3, MG3, LIPA4, BILD3, HEMDF #### [place] [address] [place] Protein [Mass/Vol] 7.7 g/dL Normal 6.3-8.2 [facility] Comment on above: Result Comment: Slig htly hemolysed, interpret with caution. Performed By: #### P T, LACT3, CMP3, MG3, LIPA4, BILD3, HEMDF #### [place] [address] [place] Urea nitrogen [Mass/Vol] 15 mg/dL Normal 7-20 [facility] Comment on above: Performed By: #### P T, LACT3, CMP3, MG3, LIPA4, BILD3, HEMDF #### [place] [address] [place] Albumin [Mass/Vol] 4.1 g/dL Normal 3.5-5.0 [facility] Comment on above: Result Comment: Slig htly hemolysed, interpret with caution. Performed By: #### P T, LACT3, CMP3, MG3, LIPA4, BILD3, HEMDF #### [place] [address] [place] Chloride [Moles/Vol] 107 mmol/L Normal 98-107 [place] Comment on above: Performed By: #### P T, LACT3, CMP3, MG3, LIPA4, BILD3, HEMDF #### [place] [address] Potassium [Moles/Vol] 4.9 mmol/L Normal 3.5-5.1 [place] Comment on above: Slightly hemolysed, interpret with caution. Result Comment: Slig htly hemolysed, interpret with caution. Performed By: #### P T, LACT3, CMP3, MG3, LIPA4, BILD3, HEMDF #### [place] [address] [place] Sodium [Moles/Vol] 140 mmol/L Normal 135-145 [place] Comment on above: Performed By: #### P T, LACT3, CMP3, MG3, LIPA4, BILD3, HEMDF #### [place] [address] [place], [place] Complete Urinalysison 2018 Appearance (U) Clear Normal [facility] Comment on above: Result Comment: Refe rence Range: Clear Performed By: #### C UA2 #### [place] [address] [place], [place] Bilirubin,Urine 0.5 mg/dL Normal [facility] Comment on above: Result Comment: Refe rence Range: Negative Performed By: #### C UA2 #### [place] [address] [place], [place] Color (U) Yellow Normal [facility] Comment on above: Result Comment: Refe rence Range: Lt. Yellow Performed By: #### C UA2 #### [facility] [address], [place] Glucose Ql (U) Normal Normal [facility] Comment on above: Result Comment: Refe rence Range: Normal (<70) Performed By: #### C UA2 #### [place] [address] [place], [place] Ketone,Urine Negative Normal [facility] Comment on above: Result Comment: Refe rence Range: Negative Performed By: #### C UA2 #### [place] [address] [place], [place] Leukocytes,Urine Negative Normal [facility] Comment on above: Result Comment: Refe rence Range: Negative Performed By: #### C UA2 #### [place] [address] [place], [place] Nitrites,Urine Negative Normal [facility] Comment on above: Result Comment: Refe rence Range: Negative Performed By: #### C UA2 #### [place] [address] [place], [place] Occult Blood,Urine Negative Normal [facility] Comment on above: Result Comment: Refe rence Range: Negative Performed By: #### C UA2 #### [place] [address] [place], [place] pH (U) 5.0 Normal 5.0-8.0 [facility] Comment on above: Performed By: #### C UA2 #### [place] [address] [place], [place] Protein (U) [Mass/Vol] Negative Normal [facility] Comment on above: Result Comment: Refe rence Range: Negative Performed By: #### C UA2 #### [place] [address] [place], [place] Specific Elliott,Urine 1.014 Normal 1.005 -1.03 0 [facility] Comment on above: Performed By: #### C UA2 #### [facility] [address] [place] [address] Urobilinogen,Urine Normal Normal [facility] Comment on above: Result Comment: Refe bipin Range: Normal (0-1) Performed By: #### C UA2 #### [facility] [address] [place] [address] Comprehensive Metabolic Pane sandra 07-10-2019 Albumin [Mass/Vol] 4.1 g/dL 3.5 - 5 g/dL [place] Comment on above: Slightly hemolysed, interpret with caution. ALP [Catalytic activity/Vol] 277 U/L High 38 - 126 U/L [place] Comment on above: Slightly hemolysed, interpret with caution. ALT [Catalytic activity/Vol] 209 U/L High 13 - 69 U/L [place] Comment on above: Slightly hemolysed, interpret with caution. Anion gap [Moles/Vol] 12 mmol/L [place] AST [Catalytic activity/Vol] 138 U/L High 15 - 46 U/L [place] Comment on above: Slightly hemolysed, interpret with caution. Bilirubin Ql (U) 4.7 mg/dL High 0.2 - 1.3 mg/dL [place] Calcium [Mass/Vol] 9.2 mg/dL 8.4 - 10. 4 mg/dL [place] CO2 [Moles/Vol] 21 mmol/L Low 22 - 30 mmol/L [place] Creatinine [Mass/Vol] 0.77 mg/dL 0.52 - 1.25 mg/dL [place] EGFR IF NonAfrican Slovak >60.0 >60 mL/min [place] Comment on above: Source- MDRD equatio n with creatinine calibration to IDMS(NKDEP) eGFR not recommended for drug dose adjustment GFR/1.73 sq M predicted among blacks MDRD (S/P/Bld) [Vol rate/Area] mL/min/{1.73_m2} >60 mL/min [place] Glucose [Mass/Vol] 104 mg/dL High 70 - 100 mg/dL [place] Protein [Mass/Vol] 7.7 g/dL 6.3 - 8.2 g/dL [place] Comment on above: Slightly hemolysed, interpret with caution. Urea nitrogen [Mass/Vol] 15 mg/dL 7 - 20 mg/dL [place] Hemogram (CBC) w/Auto Diffon 07-10-2019 Absolute Baso # 0.1 10*3/uL 0 - 0.2 10*3/uL [place] Absolute Neut # 20.1 10*3/uL High 1.8 - 7 10*3/uL [place] Basophils/100 WBC (Bld) 0.4 % 0 - 2 % [place] Eosinophils (Bld) [#/Vol] 0.0 10*3/uL 0 - 0.5 10*3/uL [place] Eosinophils/100 WBC (Bld) 0.1 % Low 1 - 6 % [place] Erythrocyte distribution width (RBC) [Ratio] 20.6 % High 11.5 - 14.5 % [place] Granulocytes/100 WBC (Bld) 92.2 % High 40 - 80 % [place] Hematocrit (Bld) [Volume fraction] 43.1 % 40 - 52 % [place] Hemoglobin (Bld) [Mass/Vol] 14.4 g/dL 13 - 18 g/dL [place] Interpretation and review of laboratory results Abnormal [place] Lymphocytes (Bld) [#/Vol] 0.6 10*3/uL Low 1 - 4.3 10*3/uL [place] Lymphocytes/100 WBC (Bld) 2.6 % Low 20 - 40 % [place] MCH (RBC) [Entitic mass] 29.2 pg 26 - 34 pg [place] MCHC (RBC) [Mass/Vol] 33.5 % 32 - 36 % [place] MCV (RBC) [Entitic vol] 87.2 fL 80 - 98 fL [place] Monocytes (Bld) [#/Vol] 1.0 10*3/uL High 0 - 0.8 10*3/uL [place] Monocytes/100 WBC (Bld) 4.7 % 2 - 10 % [place] Platelet mean volume (Bld) [Entitic vol] 8.6 fL 7.4 - 10.4 fL [place] Platelets (Bld) [#/Vol] 206 10*3/uL 140 - 440 10*3/uL [place] RBC (Bld) [#/Vol] 4.94 10*6/uL 4.4 - 5.9 10*6/uL [place] WBC (Bld) [#/Vol] 21.8 10*3/uL High 3.6 - 10.7 10*3/uL [place] Test Performed by [facility], [address] [place] [id number] [place] [address] Hemogram w/ Autodiffon 07-10 Abs Baso Cnt 0.1 10*3/uL Normal 0.0-0.2 [facility] Comment on above: Performed By: #### P T, LACT3, CMP3, MG3, LIPA4, BILD3, HEMDF #### [address] Abs Neutrophile Cnt 20.1 10*3/uL High 1.8-7.0 [facility] Comment on above: Performed By: #### P T, LACT3, CMP3, MG3, LIPA4, BILD3, HEMDF #### [address] Basophils/100 WBC (Bld) 0.4 % Normal 0.0-2.0 [facility] Comment on above: Performed By: #### P T, LACT3, CMP3, MG3, LIPA4, BILD3, HEMDF #### [address] Eosinophils (Bld) [#/Vol] 0.0 10*3/uL Normal 0.0-0.5 [facility] Comment on above: Performed By: #### P T, LACT3, CMP3, MG3, LIPA4, BILD3, HEMDF #### [address] [address] [place], [place] Eosinophils/100 WBC (Bld) 0.1 % Low 1.0-6.0 [facility] Comment on above: Performed By: #### P T, LACT3, CMP3, MG3, LIPA4, BILD3, HEMDF #### [address] [address] [place], [place] Erythrocyte distribution width (RBC) [Ratio] 20.6 % High 11.5-14.5 [facility] Comment on above: Performed By: #### P T, LACT3, CMP3, MG3, LIPA4, BILD3, HEMDF #### [address] Granulocytes/100 WBC (Bld) 92.2 % High 40.0-80.0 [facility] Comment on above: Performed By: #### P T, LACT3, CMP3, MG3, LIPA4, BILD3, HEMDF #### [address] Hematocrit (Bld) [Volume fraction] 43.1 % Normal 40.0-52.0 [facility] Comment on above: Performed By: #### P T, LACT3, CMP3, MG3, LIPA4, BILD3, HEMDF #### [address] Hemoglobin (Bld) [Mass/Vol] 14.4 g/dL Normal 13.0-18.0 [facility] Comment on above: Performed By: #### P T, LACT3, CMP3, MG3, LIPA4, BILD3, HEMDF #### [address] Lymphocytes (Bld) [#/Vol] 0.6 10*3/uL Low 1.0-4.3 [facility] Comment on above: Performed By: #### P T, LACT3, CMP3, MG3, LIPA4, BILD3, HEMDF #### [address] Lymphocytes/100 WBC (Bld) 2.6 % Low 20.0-40.0 [facility] Comment on above: Performed By: #### P T, LACT3, CMP3, MG3, LIPA4, BILD3, HEMDF #### [address] [address] [place], [place] MCH (RBC) [Entitic mass] 29.2 pg Normal 26.0-34.0 [facility] Comment on above: Performed By: #### P T, LACT3, CMP3, MG3, LIPA4, BILD3, HEMDF #### [address] MCHC (RBC) [Mass/Vol] 33.5 % Normal 32.0-36.0 [facility] Comment on above: Performed By: #### P T, LACT3, CMP3, MG3, LIPA4, BILD3, HEMDF #### [address] MCV (RBC) [Entitic vol] 87.2 fL Normal 80.0-98.0 [facility] Comment on above: Performed By: #### P T, LACT3, CMP3, MG3, LIPA4, BILD3, HEMDF #### [address] Monocytes (Bld) [#/Vol] 1.0 10*3/uL High 0.0-0.8 [facility] Comment on above: Performed By: #### P T, LACT3, CMP3, MG3, LIPA4, BILD3, HEMDF #### [address] Monocytes/100 WBC (Bld) 4.7 % Normal 2.0-10.0 [facility] Comment on above: Performed By: #### P T, LACT3, CMP3, MG3, LIPA4, BILD3, HEMDF #### [address] Platelet mean volume (Bld) [Entitic vol] 8.6 fL Normal 7.4-10.4 [facility] Comment on above: Performed By: #### P T, LACT3, CMP3, MG3, LIPA4, BILD3, HEMDF #### [address] [address] Platelets (Bld) [#/Vol] 206 10*3/uL Normal 140-440 [facility] Comment on above: Performed By: #### P T, LACT3, CMP3, MG3, LIPA4, BILD3, HEMDF #### [address] RBC (Bld) [#/Vol] 4.94 10*6/uL Normal 4.40-5.90 [facility] Comment on above: Performed By: #### P T, LACT3, CMP3, MG3, LIPA4, BILD3, HEMDF #### [address] WBC (Bld) [#/Vol] 21.8 10*3/uL High 3.6-10.7 [facility] Comment on above: Performed By: #### P T, LACT3, CMP3, MG3, LIPA4, BILD3, HEMDF #### [address] [address] Lactic Acidon 07-10-2019 Lactate [Moles/Vol] 1.6 mmol/L Normal 0.7-2.0 [facility] Comment on above: Performed By: #### P T, LACT3, CMP3, MG3, LIPA4, BILD3, HEMDF #### [address] Lactic Acid, Plasmaon 2018 Lactate [Moles/Vol] 1.6 mmol/L 0.7 - 2 mmol/L [place] Test Performed by [id number] [place] [address] Lipaseon 07-10-2019 Lipase [Catalytic activity/Vol] 506 U/L High 23-300 [facility] Comment on above: Performed By: #### P T, LACT3, CMP3, MG3, LIPA4, BILD3, HEMDF #### [facility] [address] [place] [address] Lipase [Catalytic activity/Vol] 506 U/L High 23 - 300 U/L [place] Magnesiumon 07-10-2019 Magnesium [Mass/Vol] 1.8 mg/dL Normal 1.6-2.3 [facility] Comment on above: Performed By: #### P T, LACT3, CMP3, MG3, LIPA4, BILD3, HEMDF #### [facility] [address] [place] [address] Magnesium [Mass/Vol] 1.8 mg/dL 1.6 - 2 .3 mg/dL [place] Metabolic Panelon 07-10-2019 Sodium [Moles/Vol] Negative [place] Comment on above: Test Performed by [facility], [facility] [place] [address] Otheron 07-10-2019 Interpretation and review of laboratory results Abnormal [place] Test Performed by [facility], [facility] [place] [address] [place] Prothrombin Timeon 9 INR Coag (PPP) [Relative time] 1.0 Normal 0.9-1.1 [facility] Comment on above: Result Comment: Tone mmended Anticoagulant Therapy: SEE BELOW ----- INR of 2.0 - 3.0 : - Prophylaxis of Venous Thrombosis (high-risk surgery) - Treatment of Venous Thrombosis - Treatment of Pulmonary Embolism (Includes tissue heart valves, Acute Myocardial Infarction to prevent systemic embolism, Valvular Heart Disease, and Atrial Fibrillation) ----- INR of 2.5 - 3.5 : - Mechanical Prosthetic Valves (high risk) - If oral anticoagulant therapy is used to prevent Myocardial Infarction Performed By: #### P T, LACT3, CMP3, MG3, LIPA4, BILD3, HEMDF #### [facility] [address] [place] [address] PT Coag (PPP) [Time] 10.8 s Normal 9.0-12.0 [facility] Comment on above: Result Comment: . Performed By: #### P T, LACT3, CMP3, MG3, LIPA4, BILD3, HEMDF #### [address] [id number] Protime-INRon 07-10-2019 INR Coag (PPP) [Relative time] 1.0 {INR} [place] Comment on above: Recommended Anticoag ulant Therapy: SEE BELOW ----- INR of 2.0 - 3.0 : - Prophylaxis of Venous Thrombosis (high-risk surgery) - Treatment of Venous Thrombosis - Treatment of Pulmonary Embolism (Includes tissue heart valves, Acute Myocardial Infarction to prevent systemic embolism, Valvular Heart Disease, and Atrial Fibrillation) ----- INR of 2.5 - 3.5 : - Mechanical Prosthetic Valves (high risk) - If oral anticoagulant therapy is used to prevent Myocardial Infarction PT Coag (PPP) [Time] 10.8 s 9 - 12 s [place] Comment on above: . Test Performed by [facility], [address] [place] [address] TS GELon 07-10-2019 TS GEL ABO Group: B Rh, Gel: NEG Antibody Screen Gel: NEG Normal [facility] Comment on above: Performed By: #### T SGL #### [place] [address] TYPE AND SCREENon 07-10-2019 Sodium [Moles/Vol] B [place] Test Performed by [facility], [address] [place] [address] Urinalysison 07-10-2019 Appearance (U) Clear [place] Comment on above: Reference Range: [place] Bilirubin Urine 0.5 mg/dL [place] Comment on above: Reference Range: Neg ative Color (U) Yellow [place] Comment on above: Reference Range: Lt. Yellow Glucose, Ur Normal mg/dL [place] Comment on above: Reference Range: Nor mal (<70) Ketones Ql (U) Negative mg/dL [place] Comment on above: Reference Range: Neg ative LEUKOCYTES, UA Negative Hetal/uL [place] Comment on above: Reference Range: Neg ative Nitrite, Urine Negative [place] Comment on above: Reference Range: Neg ative Occult Blood,Urine Negative mg/dL [place] Comment on above: Reference Range: Neg ative pH (U) 5.0 [pH] [place] Protein (U) [Mass/Vol] Negative mg/dL [place] Comment on above: Reference Range: Neg ative Specific [place], Urine 1.014 [place], [place] Urobilinogen, Urine Normal mg/dL [place] Comment on above: Reference Range: Nor mal (0-1) Test Performed by [id number] [place] [address] Vital Signs Date Time Vital Sign Value Performing Clinician Harinder mack 02-22-2025 19:11-0400 Body temperature 98.1 [degF] Dr. Bobby Fountain DO Work Phone: [facility] 02-22-2025 19:11-0400 Diastolic blood pressure 89 mm[Hg] Dr. Bobby Fountain DO Work Phone: [facility] 02-22-2025 19:11-0400 Heart rate 75 /min Dr. Bobby Fountain DO Work Phone: [facility] 02-22-2025 19:11-0400 Respiratory rate 18 /min Dr. Bobby Fountain DO Work Phone: [facility] 02-22-2025 19:11-0400 SaO2% (BldA) [Mass fraction] 97 % Dr. Bobby Fountain DO Work Phone: [facility] 02-22-2025 19:11-0400 Systolic blood pressure 136 mm[Hg] Dr. Bobby Fountain DO Work Phone: [facility] 02-22-2025 13:05-0400 Body height 180.[address] Bobby Fountain DO Work Phone: [facility] 02-22-2025 13:05-0400 Body mass index (BMI) [Ratio] 23.6 kg/m2 Dr. Bobby Fountain DO Work Phone: [facility] 02-22-2025 13:05-0400 Body weight 76.[address] Bobby Fountain DO Work Phone: [facility] 02-07-2025 10:23-0400 Body temperature 97.3 [degF] Carmela Clutter PA-C Work Phone: [facility] 02-07-2025 10:23-0400 Body weight 79.6 kg Carmela Clutter PA-C Work Phone: [facility] 02-07-2025 10:23-0400 Diastolic blood pressure 82 mm[Hg] Carmela Clutter PA-C Work Phone: [facility] 02-07-2025 10:23-0400 Heart rate 67 /min Carmela Clutter PA-C Work Phone: [facility] 02-07-2025 10:23-0400 Respiratory rate 16 /min Carmela Clutter PA-C Work Phone: [facility] 02-07-2025 10:23-0400 SaO2% (BldA) [Mass fraction] 98 % Carmela Clutter PA-C Work Phone: [facility] 02-07-2025 10:23-0400 Systolic blood pressure 128 mm[Hg] Carmela Clutter PA-C Work Phone: [facility] 01-13-2025 11:17-0400 Body weight 79 kg Harini Mcgill DISTRIBUTION TECH.RETIREMENT SALES CONSULTANT Work Phone: [facility] 01-13-2025 11:17-0400 Diastolic blood pressure 90 mm[Hg] Harini Artem DISTRIBUTION TECH.RETIREMENT SALES CONSULTANT Work Phone: [facility] 01-13-2025 11:17-0400 Heart rate 92 /min Harini Artem DISTRIBUTION TECH.RETIREMENT SALES CONSULTANT Work Phone: [facility] 01-13-2025 11:17-0400 Respiratory rate 16 /min Harini Artem DISTRIBUTION TECH.RETIREMENT SALES CONSULTANT Work Phone: [facility] 01-13-2025 11:17-0400 Systolic blood pressure 120 mm[Hg] Harini Mcgill APRRobelRETIREMENT SALES CONSULTANT Work Phone: [facility] 12-22-2024 16:00-0500 Diastolic blood pressure 94 mm[Hg] Dr. Bobby Fountain DO Work Phone: [facility] 12-22-2024 16:00-0500 Heart rate 80 /min Dr. Bobby Fountain DO Work Phone: [facility] 12-22-2024 16:00-0500 Respiratory rate 16 /min Dr. Bobby Fountain DO Work Phone: [facility] 12-22-2024 16:00-0500 SaO2% (BldA) [Mass fraction] 99 % Dr. Bobby Fountain DO Work Phone: [facility] 12-22-2024 16:00-0500 Systolic blood pressure 129 mm[Hg] Dr. Bobby Fountain DO Work Phone: [facility] 12-22-2024 14:28-0500 Body mass index (BMI) [Ratio] 23.9 kg/m2 Dr. Bobby Fountain DO Work Phone: [facility] 12-22-2024 14:28-0500 Body weight 77.[address] Bobby Fountain DO Work Phone: [facility] 12-22-2024 12:29-0500 Body temperature 97.9 [degF] Dr. Bobby Fountain DO Work Phone: [facility] 11-20-2024 18:59-0500 Body temperature 98 [degF] Dr. Bobby Fountain DO Work Phone: [facility] 11-20-2024 18:59-0500 Diastolic blood pressure 75 mm[Hg] Dr. Bobby Fountain DO Work Phone: [facility] 11-20-2024 18:59-0500 Heart rate 73 /min Dr. Bobby Fountain DO Work Phone: [facility] 11-20-2024 18:59-0500 Respiratory rate 18 /min Dr. Bobby Fountain DO Work Phone: [facility] 11-20-2024 18:59-0500 SaO2% (BldA) [Mass fraction] 100 % Dr. Bobby Fountain DO Work Phone: [facility] 11-20-2024 18:59-0500 Systolic blood pressure 127 mm[Hg] Dr. Bobby Fountain DO Work Phone: [facility] 11-20-2024 16:50-0500 Body mass index (BMI) [Ratio] 23.7 kg/m2 Dr. Bobby Fountain DO Work Phone: [facility] 11-20-2024 16:50-0500 Body weight 77.[address] Bobby Fountain DO Work Phone: [facility] 08-09-2023 20:58-0400 Diastolic blood pressure 103 mm[Hg] [facility] 08-09-2023 20:58-0400 Heart rate 61 /min [facility] 08-09-2023 20:58-0400 SaO2% (BldA) [Mass fraction] 95 % [facility] 08-09-2023 20:58-0400 Systolic blood pressure 147 mm[Hg] [facility] 08-09-2023 19:59-0400 Respiratory rate 14 /min [facility] 08-09-2023 17:21-0400 Body mass index (BMI) [Ratio] 24.4 kg/m2 [facility] 08-09-2023 17:21-0400 Body weight 79.5 kg [facility] 08-09-2023 17:09-0400 Body height 180.34 cm [facility] 08-09-2023 17:09-0400 Body temperature 97.8 [degF] [facility] 07-03-2023 22:50-0400 Diastolic blood pressure 92 mm[Hg] Dr. Bobby Fountain Work Phone: [facility] 07-03-2023 22:50-0400 Heart rate 58 /min Dr. Bobby Fountain Work Phone: [facility] 07-03-2023 22:50-0400 Respiratory rate 17 /min Dr. Bobby Fountain Work Phone: [facility] 07-03-2023 22:50-0400 SaO2% (BldA) [Mass fraction] 97 % Dr. Bobby Fountain Work Phone: [facility] 07-03-2023 22:50-0400 Systolic blood pressure 144 mm[Hg] Dr. Bobby Fountain Work Phone: [facility] 07-03-2023 21:56-0400 Body height 180.[address] Bobby Fountain Work Phone: [facility] 07-03-2023 21:56-0400 Body mass index (BMI) [Ratio] 23.9 kg/m2 Dr. Bobby Fountain Work Phone: [facility] 07-03-2023 21:56-0400 Body temperature 98.3 [degF] Dr. Bobby Fountain Work Phone: [facility] 07-03-2023 21:56-0400 Body weight 77.[address] Bobby Fountain Work Phone: [facility] 04-08-2023 13:57-0400 Body mass index (BMI) [Ratio] 24.7 kg/m2 Dr. Bobby Fountain Work Phone: [facility] 04-08-2023 13:57-0400 Body weight 80.[address] Bobby Fountain Work Phone: [facility] 04-08-2023 13:57-0400 Diastolic blood pressure 81 mm[Hg] Dr. Bobby Fountain Work Phone: [facility] 04-08-2023 13:57-0400 Heart rate 69 /min Dr. Bobby Fountain Work Phone: [facility] 04-08-2023 13:57-0400 SaO2% (BldA) [Mass fraction] 98 % Dr. Bobby Fountain Work Phone: [facility] 04-08-2023 13:57-0400 Systolic blood pressure 147 mm[Hg] Dr. Bobby Fountain Work Phone: [facility] 03-30-2023 22:04-0400 Body height 180.[address] Bobby Fountain Work Phone: [facility] 03-30-2023 22:04-0400 Body mass index (BMI) [Ratio] 23.6 kg/m2 Dr. Bobby Fountain Work Phone: [facility] 03-30-2023 22:04-0400 Body temperature 98.4 [degF] Dr. Bobby Fountain Work Phone: [facility] 03-30-2023 22:04-0400 Body weight 76.[address] Bobby Fountain Work Phone: [facility] 03-30-2023 22:04-0400 Diastolic blood pressure 108 mm[Hg] Dr. Bobby Fountain Work Phone: [facility] 03-30-2023 22:04-0400 Heart rate 78 /min Dr. Bobby Fountain Work Phone: [facility] 03-30-2023 22:04-0400 Respiratory rate 16 /min Dr. Bobby Fountain Work Phone: [facility] 03-30-2023 22:04-0400 SaO2% (BldA) [Mass fraction] 99 % Dr. Bobby Fountain Work Phone: [facility] 03-30-2023 22:04-0400 Systolic blood pressure 146 mm[Hg] Dr. Bobby Fountain Work Phone: [facility] 03-29-2023 03:11-0400 Heart rate 79 /min Dr. Bobby Fountain Work Phone: [facility] 03-29-2023 03:11-0400 Respiratory rate 17 /min Dr. Bobby Fountain Work Phone: [facility] 03-29-2023 03:11-0400 SaO2% (BldA) [Mass fraction] 97 % Dr. Bobby Fountain Work Phone: [facility] 03-29-2023 01:50-0400 Body height 180.[address] Bobby Fountain Work Phone: [facility] 03-29-2023 01:50-0400 Body mass index (BMI) [Ratio] 22.5 kg/m2 Dr. Bobby Fountain Work Phone: [facility] 03-29-2023 01:50-0400 Body temperature 98.7 [degF] Dr. Bobby Fountain Work Phone: [facility] 03-29-2023 01:50-0400 Body weight 73.[address] Bobby Fountain Work Phone: [facility] 03-29-2023 01:50-0400 Diastolic blood pressure 96 mm[Hg] Dr. Bobby Fountain Work Phone: [facility] 03-29-2023 01:50-0400 Systolic blood pressure 115 mm[Hg] Dr. Bobby Fountain Work Phone: [facility] 03-28-2023 07:19-0400 Body temperature 97.6 [degF] Dr. Bobby Fountain Work Phone: [facility] 03-28-2023 07:19-0400 Diastolic blood pressure 80 mm[Hg] Dr. Bobby Fountain Work Phone: [facility] 03-28-2023 07:19-0400 Heart rate 77 /min Dr. Bobby Fountain Work Phone: [facility] 03-28-2023 07:19-0400 Respiratory rate 18 /min Dr. Bboby Fountain Work Phone: [facility] 03-28-2023 07:19-0400 SaO2% (BldA) [Mass fraction] 100 % Dr. Bobby Fountain Work Phone: [facility] 03-28-2023 07:19-0400 Systolic blood pressure 111 mm[Hg] Dr. Bobby Fountain Work Phone: [facility] 03-28-2023 05:50-0400 Body height 180.[address] Bobby Fountain Work Phone: [facility] 03-28-2023 05:50-0400 Body mass index (BMI) [Ratio] 23.6 kg/m2 Dr. Bobby Fountain Work Phone: [facility] 03-28-2023 05:50-0400 Body weight 76.[address] Bobby Fountain Work Phone: [facility] 11-06-2022 00:12-0500 Diastolic blood pressure 95 mm[Hg] Dr. Rosibel Alberto Work Phone: [facility] 11-06-2022 00:12-0500 Heart rate 65 /min Dr. Rosibel Alberto Work Phone: [facility] 11-06-2022 00:12-0500 Respiratory rate 15 /min Dr. Rosibel Alberto Work Phone: [facility] 11-06-2022 00:12-0500 SaO2% (BldA) [Mass fraction] 98 % Dr. Rosibel Alberto Work Phone: [facility] 11-06-2022 00:12-0500 Systolic blood pressure 167 mm[Hg] Dr. Rosibel Alberto Work Phone: [facility] 11-05-2022 20:51-0500 Body height 180.[address] Rosibel Alberto Work Phone: [facility] 11-05-2022 20:51-0500 Body mass index (BMI) [Ratio] 24.3 kg/m2 Dr. Rosibel Alberto Work Phone: [facility] 11-05-2022 20:51-0500 Body temperature 97.4 [degF] Dr. Rosibel Alberto Work Phone: [facility] 11-05-2022 20:51-0500 Body weight 78.[address] Rosibel Alberto Work Phone: [facility] 11-05-2022 14:36-0500 Body mass index (BMI) [Ratio] 24.5 kg/m2 Dr. Rosibel Alberto Work Phone: [facility] 11-05-2022 14:36-0500 Body weight 79.[address] Rosibel Alberto Work Phone: [facility] 11-05-2022 14:36-0500 Diastolic blood pressure 103 mm[Hg] Dr. Rosibel Alberto Work Phone: [facility] 11-05-2022 14:36-0500 Heart rate 71 /min Dr. Rosibel Alberto Work Phone: [facility] 11-05-2022 14:36-0500 SaO2% (BldA) [Mass fraction] 97 % Dr. Rosibel Alberto Work Phone: [facility] 11-05-2022 14:36-0500 Systolic blood pressure 178 mm[Hg] Dr. Rosibel Alberto Work Phone: [facility] 07-04-2022 15:20-0400 Diastolic blood pressure 98 mm[Hg] Dr. Rosibel Alberto Work Phone: [facility] Work Phone: 07-04-2022 15:20-0400 Heart rate 63 /min Dr. Rosibel Alberto Work Phone: [facility] Work Phone: 07-04-2022 15:20-0400 Respiratory rate 16 /min Dr. Rosibel Alberto Work Phone: [facility] Work Phone: 07-04-2022 15:20-0400 SaO2% (BldA) [Mass fraction] 97 % Dr. Rosibel Alberto Work Phone: [facility] Work Phone: 07-04-2022 15:20-0400 Systolic blood pressure 132 mm[Hg] Dr. Rosibel Alberto Work Phone: [facility] Work Phone: 07-04-2022 09:10-0400 Body height 180.[address] Rosibel Alberto Work Phone: [facility] Work Phone: 07-04-2022 09:10-0400 Body mass index (BMI) [Ratio] 22.6 kg/m2 Dr. Rosibel Alberto Work Phone: [facility] Work Phone: 07-04-2022 09:10-0400 Body temperature 98.2 [degF] Dr. Rosibel Alberto Work Phone: [facility] Work Phone: 07-04-2022 09:10-0400 Body weight 73.[address] Rosibel Alberto Work Phone: [facility] Work Phone: 05-23-2022 14:38-0400 Body height 180.[address] Rosibel Alberto Work Phone: [facility] Work Phone: 05-23-2022 14:38-0400 Body mass index (BMI) [Ratio] 23 kg/m2 Dr. Rosibel Alberto Work Phone: [facility] Work Phone: 05-23-2022 14:38-0400 Body temperature 98.6 [degF] Dr. Rosibel Alberto Work Phone: [facility] Work Phone: 05-23-2022 14:38-0400 Body weight 74.[address] Rosibel Alberto Work Phone: [facility] Work Phone: 05-23-2022 14:38-0400 Diastolic blood pressure 107 mm[Hg] Dr. Rosibel Alberto Work Phone: [facility] Work Phone: 05-23-2022 14:38-0400 Heart rate 65 /min [facility]. Ros[facility] [facility] Work Phone: 05-23-2022 14:38-0400 Respiratory rate 18 /min Dr. Rosibel Alberto Work Phone: [facility] Work Phone: 05-23-2022 14:38-0400 SaO2% (BldA) [Mass fraction] 99 % Dr. Rosibel Alberto Work Phone: [facility] Work Phone: 05-23-2022 14:38-0400 Systolic blood pressure 146 mm[Hg] Dr. Rosibel Alberto Work Phone: [facility] Work Phone: 03-18-2022 10:49-0400 Body height 180.34 cm Paulie Torres MD Work Phone: PY-Ucrcznfppy-Uomg lawn Work Phone: 03-18-2022 10:49-0400 Body mass index (BMI) [Ratio] 22.01 kg/m2 Paulie Torres MD Work Phone: YG-Wfhwfjdpzn-Pgdj lawn Work Phone: 03-18-2022 10:49-0400 Body surface area Derived from formula 1.91 m2 Paulie Torres MD Work Phone: CB-Ofhgbdyoyh-Iycl lawn Work Phone: 03-18-2022 10:49-0400 Body weight 71.58 kg Paulie Torres MD Work Phone: RN-Dijqygriec-Yzku lawn Work Phone: 03-18-2022 10:49-0400 Diastolic blood pressure 97 mm[Hg] Paulie Torres MD Work Phone: CV-Rocsvbclml-Hccz lawn Work Phone: 03-18-2022 10:49-0400 Heart rate 56 /min Paulie Torres MD Work Phone: GR-Ajdsvvootm-Iduh lawn Work Phone: 03-18-2022 10:49-0400 Systolic blood pressure 162 mm[Hg] Paulie Torres MD Work Phone: DX-Qmkcnelbdr-Fwlr lawn Work Phone: 02-13-2022 21:36-0400 Diastolic blood pressure 75 mm[Hg] Dr. Rosibel Alberto Work Phone: [facility] Work Phone: 02-13-2022 21:36-0400 Systolic blood pressure 152 mm[Hg] Dr. Rosibel Alberto Work Phone: [facility] Work Phone: 02-13-2022 20:21-0400 Body height 180.[address] Rosibel Alberto Work Phone: [facility] Work Phone: 02-13-2022 20:21-0400 Body mass index (BMI) [Ratio] 23 kg/m2 Dr. Rosibel Alberto Work Phone: [facility] Work Phone: 02-13-2022 20:21-0400 Body temperature 97.9 [degF] Dr. Rosibel Alberto Work Phone: [facility] Work Phone: 02-13-2022 20:21-0400 Body weight 74.[address] Rosibel Alberto Work Phone: [facility] Work Phone: 02-13-2022 20:21-0400 Heart rate 67 /min Dr. Rosibel Alberto Work Phone: [facility] Work Phone: 02-13-2022 20:21-0400 Respiratory rate 15 /min Dr. Rosibel Alberto Work Phone: [facility] Work Phone: 02-13-2022 20:21-0400 SaO2% (BldA) [Mass fraction] 100 % Dr. Rosibel Alberto Work Phone: [facility] Work Phone: 12-21-2021 07:06-0500 Body temperature 98.6 [degF] Dr. Rosibel Alberto Work Phone: [facility] Work Phone: 12-21-2021 07:06-0500 Diastolic blood pressure 103 mm[Hg] Dr. Rosibel Alberto Work Phone: [facility] Work Phone: 12-21-2021 07:06-0500 Heart rate 71 /min Dr. Rosibel Alberto Work Phone: [facility] Work Phone: 12-21-2021 07:06-0500 Respiratory rate 18 /min Dr. Rosibel Alberto Work Phone: [facility] Work Phone: 12-21-2021 07:06-0500 SaO2% (BldA) [Mass fraction] 99 % Dr. Rosibel Alberto Work Phone: [facility] Work Phone: 12-21-2021 07:06-0500 Systolic blood pressure 143 mm[Hg] Dr. Rosibel Alberto Work Phone: [facility] Work Phone: 12-20-2021 13:40-0500 Body weight 72.[address] Rosibel Alberto Work Phone: [facility] Work Phone: 12-20-2021 05:25-0500 Body mass index (BMI) [Ratio] 22.1 kg/m2 Dr. Rosibel Alberto Work Phone: [facility] Work Phone: 12-03-2021 19:17-0500 Body temperature 98.24 [degF] LACEY SARAVIAELY DISTRIBUTION TECH-RETIREMENT SALES CONSULTANT [facility] 12-03-2021 19:17-0500 Diastolic blood pressure 87 mm[Hg] LACEY LYNETTE DISTRIBUTION TECH-RETIREMENT SALES CONSULTANT [facility] 12-03-2021 19:17-0500 Heart rate 70 /min LACEY SARAVIAELY DISTRIBUTION TECH-RETIREMENT SALES CONSULTANT [facility] 12-03-2021 19:17-0500 Reason For Taking VItal Signs LACEY SARAVIAELY DISTRIBUTION TECH-RETIREMENT SALES CONSULTANT [facility] 12-03-2021 19:17-0500 Respiratory rate 20 /min LACEY SARAVIAELY DISTRIBUTION TECH-RETIREMENT SALES CONSULTANT [facility] 12-03-2021 19:17-0500 Systolic blood pressure 144 mm[Hg] LACEY SARAVIAELY DISTRIBUTION TECH-RETIREMENT SALES CONSULTANT [facility] 12-03-2021 15:24-0500 Body temperature 98.78 [degF] LACEY SARAVIAELY DISTRIBUTION TECH-RETIREMENT SALES CONSULTANT [facility] 12-03-2021 15:24-0500 Diastolic blood pressure 75 mm[Hg] LACEY LYNETTE DISTRIBUTION TECH-RETIREMENT SALES CONSULTANT [facility] 12-03-2021 15:24-0500 Heart rate 92 /min LACEY SARAVIAELY DISTRIBUTION TECH-RETIREMENT SALES CONSULTANT [facility] 12-03-2021 15:24-0500 Reason For Taking VItal Signs LACEY OJEDA DISTRIBUTION TECH-RETIREMENT SALES CONSULTANT [facility] 12-03-2021 15:24-0500 Respiratory rate 18 /min LACEY OJEDA DISTRIBUTION TECH-RETIREMENT SALES CONSULTANT [facility] 12-03-2021 15:24-0500 Systolic blood pressure 136 mm[Hg] LACEY OJEDA DISTRIBUTION TECH-RETIREMENT SALES CONSULTANT [facility] 12-03-2021 06:57-0500 Body temperature 97.7 [degF] LACEY OJEDA DISTRIBUTION TECH-RETIREMENT SALES CONSULTANT [facility] 12-03-2021 06:57-0500 Diastolic blood pressure 90 mm[Hg] LACEY OJEDA DISTRIBUTION TECH-RETIREMENT SALES CONSULTANT [facility] 12-03-2021 06:57-0500 Heart rate 60 /min LACEY OJEDA DISTRIBUTION TECH-RETIREMENT SALES CONSULTANT [facility] 12-03-2021 06:57-0500 Reason For Taking VItal Signs LACEY OJEDA DISTRIBUTION TECH-RETIREMENT SALES CONSULTANT [facility] 12-03-2021 06:57-0500 Respiratory rate 18 /min LACEY OJEDA DISTRIBUTION TECH-RETIREMENT SALES CONSULTANT [facility] 12-03-2021 06:57-0500 Systolic blood pressure 157 mm[Hg] LACEY OJEDA DISTRIBUTION TECH-RETIREMENT SALES CONSULTANT [facility] 12-03-2021 03:50-0500 Heart rate 58 /min LACEY OJEDA DISTRIBUTION TECH-RETIREMENT SALES CONSULTANT [facility] 12-03-2021 03:50-0500 Mean blood pressure 86 mm[Hg] LACEY OJEDA DISTRIBUTION TECH-RETIREMENT SALES CONSULTANT [facility] 12-03-2021 00:05-0500 Body height 180.3 cm LACEY OJEDA DISTRIBUTION TECH-RETIREMENT SALES CONSULTANT [facility] 12-03-2021 00:05-0500 Body weight 77.27 kg LACEY OJEDA DISTRIBUTION TECH-RETIREMENT SALES CONSULTANT [facility] 12-03-2021 00:05-0500 Body weight 23.77 kg/m2 LACEY OJEDA DISTRIBUTION TECH-RETIREMENT SALES CONSULTANT [facility] 12-02-2021 23:50-0500 Body height 180.3 cm LACEY OJEDA DISTRIBUTION TECH-RETIREMENT SALES CONSULTANT [facility] 12-02-2021 23:50-0500 Body weight 77.27 kg LACEY OJEDA DISTRIBUTION TECH-RETIREMENT SALES CONSULTANT [facility] 12-02-2021 23:50-0500 Body weight 23.77 kg/m2 LACEY OJEDA DISTRIBUTION TECH-RETIREMENT SALES CONSULTANT [facility] 12-02-2021 23:44-0500 Heart rate 69 /min LACEY OJEDA DISTRIBUTION TECH-RETIREMENT SALES CONSULTANT [facility] 12-02-2021 23:26-0500 Heart rate 72 /min LACEY OJEDA DISTRIBUTION TECH-RETIREMENT SALES CONSULTANT [facility] 12-02-2021 23:26-0500 Mean blood pressure 115 mm[Hg] LACEY OJEDA DISTRIBUTION TECH-RETIREMENT SALES CONSULTANT [facility] 12-02-2021 21:35-0500 Heart rate 72 /min LACEY OJEDA DISTRIBUTION TECH-RETIREMENT SALES CONSULTANT [facility] 12-02-2021 21:35-0500 Mean blood pressure 123 mm[Hg] LACEY OJEDA DISTRIBUTION TECH-RETIREMENT SALES CONSULTANT [facility] 12-02-2021 10:36-0500 Body temperature 98.6 [degF] KERRY PETERSEN DO [facility] 12-02-2021 10:36-0500 Diastolic blood pressure 106 mm[Hg] KERRY PETERSEN DO [facility] 12-02-2021 10:36-0500 Heart rate 80 /min KERRY PETERSEN DO [facility] 12-02-2021 10:36-0500 Respiratory rate 20 /min KERRY PETERSEN DO [facility] 12-02-2021 10:36-0500 Systolic blood pressure 163 mm[Hg] KERRY PETERSEN DO [facility] 10-06-2021 13:29-0500 Body temperature 98.42 [degF] MICHAEL PURI MD [facility] 10-06-2021 13:29-0500 Diastolic blood pressure 104 mm[Hg] MICHAEL PURI MD [facility] 10-06-2021 13:29-0500 Heart rate 77 /min MICHAEL PURI MD [facility] 10-06-2021 13:29-0500 Respiratory rate 18 /min MICHAEL PURI MD [facility] 10-06-2021 13:29-0500 Systolic blood pressure 167 mm[Hg] MICHAEL PURI MD [facility] 09-02-2021 10:13-0500 Body temperature 98.6 [degF] PK RUTLEDGE MD [facility] 09-02-2021 10:13-0500 Diastolic blood pressure 91 mm[Hg] PK RUTLEDGE MD [facility] 09-02-2021 10:13-0500 Heart rate 68 /min PK RUTLEDGE MD [facility] 09-02-2021 10:13-0500 Respiratory rate 18 /min PK RUTLEDGE MD [facility] 09-02-2021 10:13-0500 Systolic blood pressure 132 mm[Hg] PK RUTLEDGE MD [facility] 04-01-2020 05:31-0400 Body Temperature 97.2 [degF] [facility] , [place] 04-01-2020 05:31-0400 BP Diastolic 70 mm[Hg] [facility] [place] 04-01-2020 05:31-0400 BP Systolic 108 mm[Hg] [facility] [place] 04-01-2020 05:31-0400 Pulse (Heart Rate) 51 /min [facility] 04-01-2020 05:31-0400 Pulse Oximetry 98 % [facility] [place] 04-01-2020 05:31-0400 Respiratory Rate 18 /min [facility] [place] [place] 03-31-2020 01:55-0400 BMI (Body Mass Index) 22.57 kg/m2 [facility] 03-31-2020 01:55-0400 Body weight 73.39 kg [facility] [place] 09-29-2019 09:09-0500 BP Diastolic 97 mm[Hg] Amy Liam [facility], [place] 09-29-2019 09:09-0500 BP Systolic 140 mm[Hg] Amy [facility], [place] 09-29-2019 09:09-0500 Pulse (Heart Rate) 54 /min [facility] [place], [place] 09-29-2019 09:09-0500 Pulse Oximetry 100 % Amy [facility], [place] 09-29-2019 09:09-0500 Respiratory Rate 16 /min Amy Liam [facility] [place], [place] 09-29-2019 08:51-0500 Body Temperature 97.5 [degF] Amy [facility], [place] 09-29-2019 06:55-0500 BMI (Body Mass Index) 23.01 kg/m2 [facility] [place] 09-29-2019 06:55-0500 Body weight 74.84 kg [facility] [place] 09-29-2019 06:55-0500 Height 180.3 cm [facility] [place] 09-14-2019 11:00-0500 Body Temperature 98.91 [degF] [facility] [place] 09-14-2019 11:00-0500 BP Diastolic 93 mm[Hg] [facility] [place] 09-14-2019 11:00-0500 BP Systolic 129 mm[Hg] [facility] [place] 09-14-2019 11:00-0500 Pulse (Heart Rate) 71 /min [facility] [place] 09-14-2019 11:00-0500 Pulse Oximetry 99 % [facility] [place] 09-14-2019 11:00-0500 Respiratory Rate 18 /min [facility] [place] 09-14-2019 06:17-0500 BMI (Body Mass Index) 23.01 kg/m2 [facility] [place] 09-14-2019 06:17-0500 Body weight 74.84 kg [facility] [place] 09-14-2019 06:17-0500 Height 180.3 cm [facility] [place] 07-14-2019 06:58-0400 Body Temperature 98.1 [degF] [facility] [place] 07-14-2019 06:58-0400 BP Diastolic 82 mm[Hg] [facility] , [place] 07-14-2019 06:58-0400 BP Systolic 117 mm[Hg] [facility] , [place] 07-14-2019 06:58-0400 Pulse (Heart Rate) 68 /min [facility], [place] 07-14-2019 06:58-0400 Pulse Oximetry 97 % [facility] 07-14-2019 06:58-0400 Respiratory Rate 20 /min [facility] [place] 07-13-2019 14:10-0400 Height 180[address] [facility] 07-10-2019 10:09-0400 BMI (Body Mass Index) 20.92 kg/m2 [facility] [place] 07-10-2019 10:090400 Body weight 68.04 kg [facility] [place] Encounters Encounter Date Encounter Type Care Provider Facility Start: 07-19-2025 End: 07-19-[address] Patient [address] Lucio Lane DO -[facility] Work Phone: Start: 07-19-2025 End: 07-19-[address] Facility:[facility] Start: 05-24-2025 End: 05-24-2025 ambulatory BOBBY FOUNTAIN DO Facility:[facility] Start: 05-24-2025 End: 05-24-2025 Patient encounter procedure BOBBY FOUNTAIN DO [facility] Start: 05-24-2025 End: 05-24-2025 Well adult monitoring check done BOBBY FOUNTAIN DO [facility] Start: 03-08-[address] Facility :[facility] Start: 02-22-2025 End: 02-22-2025 Emergency department patient visit Dr. Bobby Fountain DO Work Phone: -Emergency Department Work Phone: Start: 02-07-2025 End: 02-07-2025 ambulatory BOBBY FOUNTAIN Facility:[place] Start: 02-07-2025 End: 02-07-2025 Office outpatient new 30 minutes Carmela Pimentel PA-C Work Phone: [facility] Comment on above: Blepharitis of upper and lower eyelids of both eyes, unspecified type (Primary Dx); Hordeolum externum, unspecified laterality Start: 01-13-2025 End: 01-13-2025 ambulatory ROSIBEL ALBERTO Facility:[facility] Start: 01-13-2025 End: 01-13-2025 Patient encounter procedure Harini Mcgill RETIREMENT SALES CONSULTANT Work Phone: [facility] Comment on above: Foreign body of righ t eye, initial encounter (Primary Dx) Start: 01-10-2025 End: 01-10-2025 Patient encounter procedure Lucio Lane DO -[facility] Work Phone: Start: 01-10-2025 End: 01-10-[address] Facility:[facility] Start: 12-22-2024 End: 12-22-2024 Emergency department patient visit Dr. Jc Raza MD -Emergency Department Work Phone: Start: 11-25-2024 End: 11-25-2024 ambulatory BOBBY FOUNTAIN DO [facility] Start: 11-25-2024 End: 11-25-2024 Patient encounter procedure BOBBY FOUNTAIN DO [facility] Start: 11-20-2024 End: 11-20-2024 Emergency department patient visit Dr. Prince Quintanilla DO -Emergency Department Work Phone: Start: 10-01-2024 End: 10-01-2024 ambulatory BOBBY FOUNTAIN DO [facility] Start: 10-01-2024 End: 10-01-2024 Patient encounter procedure BOBBY FOUNTAIN DO [facility] Start: 09-21-2024 ambulatory BOBBY FOUNTAIN DO Faci lity:A Start: 09-10-[address] Facility :[facility] Start: 08-30-2024 End: 08-30-2024 ambulatory BOBBY FOUNTAIN DO [facility] Start: 08-30-2024 End: 08-30-2024 Patient encounter procedure BOBBY FOUNTAIN DO [facility] Start: 06-29-2024 End: 06-29-2024 ambulatory BOBBY FOUNTAIN DO Facility:B Start: 06-29-2024 End: 06-29-2024 Patient encounter procedure BOBBY FOUNTAIN DO [facility] Start: 06-29-2024 End: 06-29-2024 Well adult monitoring check done BOBBY FOUNTAIN DO [facility] Start: 06-18-2024 ambulatory BOBBY Lyle lity:A Start: 03-30-2024 End: 03-30-2024 ambulatory RICHARD RANKIN MD Facility:A Start: 03-05-2024 End: 03-05-2024 ambulatory BOBBY FOUNTAIN DO Facility:[facility] Start: 03-05-2024 End: 03-05-2024 Patient encounter procedure BOBBY FOUNTAIN DO [facility] Start: 10-31-2023 End: 10-31-[address] Bobby Fountain Work Phone: [facility] Work Phone: Start: 10-31-2023 End: 10-31-[address] Bobby Fountain Work Phone: [facility] Work Phone: Start: 10-14-2023 ambulatory BOBBY Lyle lity:B Start: 10-14-2023 Encounter for genera l adult medical examination without abnormal findings BOBBY FOUNTAIN DO Facility:B Start: 10-06-2023 End: 10-06-[address] Bobby Fountain Work Phone: [facility] Work Phone: Start: 08-09-2023 End: 08-09-2023 Emergency department patient visit [facility]Emer[facility] Department Work Phone: Start: 08-07-2023 End: 08-07-2023 ambulatory BOBBY FOUNTAIN DO Facility:B Start: 08-07-2023 End: 08-07-2023 Patient encounter procedure BOBBY FOUNTAIN DO [facility] Start: 07-03-2023 End: 07-03-2023 Emergency department patient visit Dr. Bobby Fountain Work Phone: [facility]-Emergency Department Work Phone: Start: 04-08-2023 End: 04-08-[address] Bobby Fountain Work Phone: [facility] Work Phone: Start: 03-30-2023 End: 03-30-2023 Emergency department patient visit Dr. Bobby Fountain Work Phone: [facility]-Emergency Department Start: 03-29-2023 End: 03-29-2023 Emergency department patient visit Dr. Bobby Fountain Work Phone: [facility]-Emergency Department Start: 03-28-2023 Non-patient / Non-visit Dr. Bobby Fountain Work Phone: [facility] Start: 03-28-2023 End: 03-28-2023 Admission to same day surgery center Dr. Bobby Fountain Work Phone: [facility]-Endoscopy Start: 03-28-2023 End: 03-28-[address] Bobby Fountain Work Phone: [facility] Work Phone: Start: 11-05-2022 End: 11-06-2022 Emergency department patient visit Dr. Rosibel Alberto Work Phone: [facility]-Emergency Department Start: 11-05-2022 End: 11-05-[address] Rosibel Alberto Work Phone: [facility] Work Phone: Start: 11-05-2022 End: 11-05-[address] Rosibel Alberto Work Phone: [facility]-Laboratory Start: 11-05-2022 End: 11-05-[address] Rosibel Alberto Work Phone: [facility] Start: 10-30-2022 End: 11-03-[address] GERARDO SIDHU MD [facility] Start: 10-14-2022 End: 10-14-2022 Patient encounter procedure BOBBY FOUNTAIN DO [facility] Start: 10-09-2022 Chart Update Nia Arroyo MD Work Phone: IP-Xuykevvcmcdlxsqx-Sdine ake SJW 450 DO Work Phone: Start: 07-04-2022 End: 07-04-2022 Emergency department patient visit Dr. Rosibel Alberto Work Phone: [facility]-Emergency Department Start: 06-24-2022 AUDIT Albania Mcneill Work Phone: JL-Ecxoszv-Gxbx MOB[facility] [place] Work Phone: Start: 05-31-2022 End: 05-31-[address] Rosibel Alberto Work Phone: [facility] Start: 05-23-2022 End: 05-23-2022 Emergency department patient visit Dr. Rosibel Alberto Work Phone: [facility]-Emergency Department Start: 03-18-2022 Office outpatient visit 25 minutes Paulie Torres MD Work Phone: UD-Qkqgluovjm-Atqazozn Work Phone: Start: 03-07-2022 End: 03-07-[address] Rosibel Alberto Work Phone: [facility] Start: 02-13-2022 End: 02-13-2022 Emergency department patient visit Dr. Rosibel Alberto Work Phone: [facility]-Emergency Department Start: 01-21-2022 End: 01-21-2022 Patient encounter procedure ROSIBEL ALBERTO MD [facility] Start: 01-07-2022 End: 01-07-[address] Rosibel Alberto Work Phone: [facility] Start: 12-27-2021 AUDIT Nia Arroyo MD Work Phone: CB-Lfixdpsjzgsvawys-Plrkc bimal SJW 450 DO Work Phone: Start: 12-26-2021 AUDIT Nia Arroyo MD Work Phone: VH-Gaxpkbodrynkmynq-Wnezn bimal SJW 450 DO Work Phone: Start: 12-21-2021 Non-patient / Non-visit Dr. Rosibel Alberto Work Phone: [facility] Start: 12-20-2021 Non-patient / Non-visit Dr. Rosibel Alberto Work Phone: [facility] Start: 12-20-2021 Non-patient / Non-visit Dr. Rosibel Alberto Work Phone: [facility] Start: 12-19-2021 Non-patient / Non-visit Dr. Rosibel Alberto Work Phone: [facility] Start: 12-19-2021 Non-patient / Non-visit Dr. Rosibel Alberto Work Phone: [facility] Start: 12-18-2021 Non-patient / Non-visit Dr. Rosibel Alberto Work Phone: [facility] Start: 12-18-2021 Non-patient / Non-visit Dr. Rosibel Alberto Work Phone: [facility] Start: 12-17-2021 End: 12-21-2021 Evaluation and management of inpatient Dr. Rosibel Alberto Work Phone: [facility]-Progressive Care Unit Start: 12-02-2021 End: 12-03-2021 Observation LACEY OJEDA DISTRIBUTION TECH-RETIREMENT SALES CONSULTANT [facility] Start: 12-02-2021 End: 12-02-2021 Emergency department patient visit KERRY PETERSEN DO [facility] Start: 10-06-2021 End: 10-06-2021 Emergency department patient visit MICHAEL PURI MD [facility] Start: 09-02-2021 End: 09-02-2021 Emergency department patient visit PK RUTLEDGE MD [facility] Start: 03-31-2020 End: 04-01-2020 Evaluation and management of inpatient Michael Steele Work Phone: [facility] Comment on above: Anxiety (Primary Dx) ; Acute recurrent pancreatitis Start: 09-29-2019 End: 09-29-2019 Subsequent hospital visit by physician Amy Roberto Work Phone: [facility] General Surgery Comment on above: Arrived Start: 09-14-2019 End: 09-14-2019 Subsequent hospital visit by physician Douglas Morataya Work Phone: [facility] General Surgery Comment on above: Chronic cholecystiti s (Primary Dx); Acute biliary pancreatitis with uninfected necrosis Start: 07-10-2019 End: 07-14-2019 Evaluation and management of inpatient Marietta Nicolas Work Phone: [facility] Comment on above: Pancreatitis, recurr ent (Primary Dx) Procedures Date Procedure Procedure Detail Performing Clinician Start: 12-22-2024 X-ray of chest, PA and lateral views Dr. Bobby Fountain DO Work Phone: Start: 11-26-2024 PSA screening BOBBY FOUNTAIN DO Comment on above: Result Comment: Tiff[place] ECLIA methodology. According to the [employer] [employer], Serum PSA should decrease and remain at undetectable levels after radical prostatectomy. The AUA defines biochemical recurrence as an initial PSA value 0.2 ng/mL or greater followed by a subsequent confirmatory PSA value 0.2 ng/mL or greater. Values obtained with different assay methods or kits cannot be used interchangeably. Results cannot be interpreted as absolute evidence of the presence or absence of malignant disease. Performed By: #### [id number], LIPID #### [place] [id number] Start: 11-20-2024 X-ray of chest, PA and lateral views Dr. Bobby Fountain DO Work Phone: Start: 11-20-2024 SARS-CoV-2, Influenza & RSV (PCR) Dr. Bobby Fountain DO Work Phone: Start: 08-31-2024 PSA screening BOBBY FOUNTAIN DO Comment on above: Result Comment: [place] ECLIA methodology. According to the [employer] [employer], Serum PSA should decrease and remain at undetectable levels after radical prostatectomy. The AUA defines biochemical recurrence as an initial PSA value 0.2 ng/mL or greater followed by a subsequent confirmatory PSA value 0.2 ng/mL or greater. Values obtained with different assay methods or kits cannot be used interchangeably. Results cannot be interpreted as absolute evidence of the presence or absence of malignant disease. Performed By: #### [id number], LIPID #### [place] [id number] Start: 03-06-2024 PSA screening RICHARD RANKIN MD Comment on above: Result Comment: Tiffanie ECLIA methodology. According to the [employer] [employer], Serum PSA should decrease and remain at undetectable levels after radical prostatectomy. The AUA defines biochemical recurrence as an initial PSA value 0.2 ng/mL or greater followed by a subsequent confirmatory PSA value 0.2 ng/mL or greater. Values obtained with different assay methods or kits cannot be used interchangeably. Results cannot be interpreted as absolute evidence of the presence or absence of malignant disease. Performed By: #### G FR, [id number], [facility] #### [place] [id number] [place], [place] [address] Start: 10-31-2023 CT of abdomen with contrast Dr. Bobby grayson Work Phone: Start: 10-16-2023 PSA screening RICHARD RANKIN MD Comment on above: Result Comment: Tiffanie ECLIA methodology. According to the [employer] [employer], Serum PSA should decrease and remain at undetectable levels after radical prostatectomy. The AUA defines biochemical recurrence as an initial PSA value 0.2 ng/mL or greater followed by a subsequent confirmatory PSA value 0.2 ng/mL or greater. Values obtained with different assay methods or kits cannot be used interchangeably. Results cannot be interpreted as absolute evidence of the presence or absence of malignant disease. Performed By: #### [id number] #### Nathan [address] [address] Start: 08-09-2023 Plain chest X-ray Start: 03-28-[address] Bobby Fountain Work Phone: Start: 11-05-2022 CT of head without contrast Dr. Rosibel hendrix Work Phone: Start: 07-04-[address] Rosibel jeffers Work Phone: Start: 07-04-2022 Plain chest X-ray Dr. Rosibel Alberto Work Phone: Start: 07-04-2022 CT of chest, abdomen and pelvis without contrast Dr. Rosibel Alberto Work Phone: Start: 12-20-[address] Rosibel Alberto Work Phone: Start: 12-20-[address] Rosibel Alberto Work Phone: Start: 12-19-2021 SARS-CoV-2 Antigen (Rapid) Dr. Rosibel jeffers Work Phone: Start: 12-19-[address] Rosibel Alberto Work Phone: Start: 12-17-2021 CT angiography of chest with contrast Dr. Rosibel Alberto Work Phone: Start: 12-17-2021 Plain chest X-ray Dr. Rosibel Alberto Work Phone: Start: 09-06-2020 Endoscopic retrograde cholangiopancreatography PK RUTLEDGE MD Start: 04-01-2020 Assay of lipase Michael Steele Work Phone: Start: 04-01-2020 BASIC METABOLIC PANEL W/ REFLEX TO MG FOR LOW K Michael Cedric Work Phone: Start: 03-31-2020 Gluc bld gluc mntr dev cleared fda spec home use Michael Steele Work Phone: Start: 03-31-2020 Mri abdomen w/o & w/contrast material Susan Umanzor Work Phone: Start: 03-31-2020 Mri abdomen w/o contrast material Susan Umanzor Work Phone: Start: 03-31-2020 ADD ON LAB TEST Susan Umanzor Work Phone: Start: 03-31-2020 Assay of lipase Michael Steele Work Phone: Start: 03-31-2020 Assay of triglycerides Michael Steele Work Phone: Start: 03-31-2020 BASIC METABOLIC PANEL W/ REFLEX TO MG FOR LOW K Michael Cedric Work Phone: Start: 03-31-2020 Blood count complete automated Michael Patricio Work Phone: Start: 03-31-2020 Hepatic function panel Michael Steele Work Phone: Start: 10-13-2019 Lipid 1996 panel - Serum or Plasma Harnii Mcgill APRN.RETIREMENT SALES CONSULTANT Work Phone: Start: 09-29-2019 OPERATIVE REPORT 3m Scanning Start: 09-29-2019 ENDOSCOPY REPORT 3m Scanning Start: 09-14-2019 OPERATIVE REPORT 3m Scanning Start: 07-18-2019 Microscopic examination of blood, culture Comment on above: Order Comment: Specimen Source Comment:B lood Performed By: #### P T, LACT3, CMP3, MG3, LIPA4, BILD3, HEMDF #### [facility] [address] [place] [address] Start: 07-17-2019 Microscopic examination of blood, culture Comment on above: Order Comment: Specimen Source Comment:B lood Performed By: #### P T, LACT3, CMP3, MG3, LIPA4, BILD3, HEMDF #### [facility] [address] [place] [address] Start: 07-13-2019 Radiologic exam chest single view Gena Cordova Work Phone: Start: 07-13-2019 End: 07-13-2019 Microscopic examination of blood, culture Comment on above: Order Comment: Specimen Source Comment:B lood Performed By: #### C UA2 #### [facility] [place] [place] [address] Start: 07-12-2019 OPERATIVE REPORT 3m Scanning Start: 07-12-2019 Level iv surg pathology gross&microscopic exam Amy Roberto Work Phone: Start: 07-12-2019 Mri abdomen w/o contrast material Gerardo Petersen Work Phone: Start: 07-12-2019 Basic metabolic panel calcium total Dandy Wayne Work Phone: Start: 07-12-2019 Blood count complete automated Dandy flores Work Phone: Start: 07-12-2019 Hepatic function panel Dandy Wayne Work Phone: Start: 07-12-2019 Biliary stent (physical object) PK PATRICK MD Start: 07-12-2019 Cytopath fl nongyn, sm/fltr Dandy box Work Phone: Start: 07-11-2019 Blood count complete automated Dandy flores Work Phone: Start: 07-11-2019 Assay of magnesium Dandy Wayne Work Phone: Start: 07-11-2019 BASIC METABOLIC PANEL W/ REFLEX TO MG FOR LOW K Dandy Wayne Work Phone: Start: 07-11-2019 Hepatic function panel Dandy Wayne Work Phone: Start: 07-10-2019 Culture bacterial blood aerobic w/id isolates Alexsandra Rubin Stiven Work Phone: Start: 07-10-2019 ADD ON LAB TEST Alexsandra Dhillongaby Work Phone: Start: 07-10-2019 Culture bacterial blood aerobic w/id isolates Alexsandra N Alejoele Work Phone: Start: 07-10-2019 Assay of lactate Alexsandra N Stiven Work Phone: Start: 07-10-2019 Assay of lipase Alexsandra N Stiven Work Phone: Start: 07-10-2019 Assay of magnesium Alexsandra N Stiven Work Phone: Start: 07-10-2019 Bilirubin direct Alexsandra Rubin Stiven Work Phone: Start: 07-10-2019 Blood count complete auto&auto difrntl wbc Alexsandra N Gabele Work Phone: Start: 07-10-2019 Blood typing serologic abo Alexsandra N G abele Work Phone: Start: 07-10-2019 Comprehensive metabolic panel Alexsandra N Gabele Work Phone: Start: 07-10-2019 Prothrombin time Alexsandra N Gabele Work Phone: Start: 07-10-2019 Urnls dip stick/tablet rgnt auto w/o microscopy Alexsandra Dhillonele Work Phone: Appendectomy PK Muhammad Cholecystectomy PK Dias MD Colonoscopy BOBBY Vigil History of cholecystectomy S/P l aparoscopic cholecystectomy( Confirmed ) BOBBY FOUNTAIN DO History of cholecystectomy S/P c holecystectomy( Confirmed ) BOBBY FOUNTAIN DO Other (qualifier value) GIDEON RUTLEDGE MD Comment on above: Pancreatic drain Plan of Treatment Date Care Activity Detail Author Start: 2035 RSV Vaccine (1 - 1-dose 75+ series) RSV Vaccine (1 - 1-dose 75+ series) [facility] Start: 08-31-2034 Urine microalbumin profile DTaP,Tdap,Td Vaccine (3 - Td or Tdap) [facility] Start: 02-22-2025 End: 02-22-2025 [facility] Start: 12-22-2024 [facility] [place] Start: 12-22-2024 [facility] [place] Start: 11-20-2024 [facility] [place] Start: 10-13-2024 Lipid panel [facility] Start: 06-27-2024 Covid-19 Vaccine ( season) Covid-19 Vaccine ( season) [facility] Start: 06-27-2024 Influenza vaccination Influenza Vacc ine (#1) [facility] Start: 03-19-2024 Lipid screen Lipid screen [place], [place] Start: 03-15-2024 Screening for malignant neoplasm of colon [facility] Start: 09-18-2023 Diabetes Screening Diabetes Screenin g [facility] Start: 08-18-2023 DTaP/Tdap/Td vaccine (2 - Td) DTaP/Tdap/Td vaccine (2 - Td) [place], [place] Start: 08-09-2023 [facility] [place] Start: 08-09-2023 [facility] [place] Start: 03-28-2023 Colsc flx w/rmvl of tumor polyp lesion snare tq COLONOSCOPY W/LESION REMOVAL [facility] Start: 03-28-2023 Patient discharge [facility] Start: 11-05-2022 Collection venous blood venipuncture ROUTINE VENIPUNCTURE [facility] Start: 11-05-2022 Immunoassay tumor antigen quantitative ca 19-9 IMMUNOASSAY TUMOR CA 19-9 [facility] Start: 07-04-2022 [facility] [place] Work Phone: Start: 01-24-2022 EUSANS, Provider: Nia Arroyo, Status: Pen, Time: 10:30 AM EUSANS, Provider: Nia Arroyo, Status: Pen, Time: 10:30 [facility] Work Phone: Start: 06-27-2020 Influenza vaccination Flu vaccine (S vivienne Ended) [place], [place] Start: 10-07-2019 End: 10-07-2019 Office Visit 10/07/2019 Office Visit Gastroenterology Amy Roberto MD [address] [place] [address], [address] [place], [place] [id number] [facility] Start: 10-01-2019 End: 10-01-2019 Office Visit 10/01/2019 Office Visit General Surgery Douglas Morataya MD [address] [place] [id number] [facility] [address] Morataya Start: 08-19-2019 End: 08-19-2019 Office Visit 08/19/2019 Office Visit Gastroenterology Amy Roberto MD [address] [place] [address], [address] [place], [place] [id number] [facility] Start: 06-27-2019 Influenza vaccination Flu vaccine (# 1) [place], [place] Start: 2015 Prostate specific antigen measurement Prostate Cancer Screening Discussion [facility] Start: 11-01-2015 Pneumococcal Vaccine : 50+ (2 of 2 - PCV) Pneumococcal Vaccine: 50+ (2 of 2 - PCV) [facility] Start: 2010 Colon cancer screen colonoscopy Colon cancer screen colonoscopy [place], [place] Start: 2010 Screening for malignant neoplasm of colon Colon cancer screen colonoscopy [place], [place] Start: 2010 Shingles Vaccine (1 of 2) Shingles Vaccine (1 of 2) [facility] Start: 2010 Shingrix Vaccine (1 of 2) Shingrix Vaccine (1 of 2) [facility] Start: 2005 Screening for malignant neoplasm of colon [facility] Start: 1978 Anxiety Screening Anxiety Screening [facility] Start: 1978 Depression Screening Depression Scre ening [facility] Start: 1978 HIV screening HIV Screening [facility] End: 04-02-2020 Basic Metabolic Panel w/ Reflex to MG Basic Metabolic Panel w/ Reflex to MG Lab Routine Tomorrow AM for 3 Occurrences starting 03/31/2020 until 04/02/2020, 2 completed [facility] Comment on above: Tomorrow AM for 3 Oc currences starting 03/31/2020 until 04/02/2020, 2 completed End: 09-29-2019 Blood glucose - POCT Blood glucose - POCT Point of Care Testing Routine One Time for 1 Occurrences starting 09/29/2019 until 09/29/2019 [facility] Comment on above: One Time for 1 Occur rences starting 09/29/2019 until 09/29/2019 Cancer Ag 19-9 [Units/volume] in Serum or Plasma [facility] CT Abdomen WO and W contrast IV [facility] CULTURE BLOOD #2 CULTURE BLOOD # 2 Microbiology Routine 07/12/2019 2:50 AM EDT [facility] End: 09-29-2019 FL ERCP BILIARY AND PANCREATIC S&I FL ERCP BILIARY AND PANCREATIC S&I Imaging Routine Once for 1 Occurrences starting 09/29/2019 until 09/29/2019 [facility] Comment on above: Once for 1 Occurrenc es starting 09/29/2019 until 09/29/2019 FL ERCP BILIARY AND PANCREATIC S&I FL ERCP BILIARY AND PANCREATIC S&I Imaging Routine 09/29/2019 7:11 AM EST [facility] Incentive spirometry Incentive s pirometry Respiratory Care Routine Q1H PRN until discontinued starting 09/14/2019 [facility] Comment on above: Q1H PRN until discon tinued starting 09/14/2019 Initiate Oxygen Therapy Protocol [facility] Comment on above: Daily until disconti nued starting 07/10/2019 Daily until disconti nued starting 03/31/2020 Daily until disconti nued starting 09/14/2019 End: 04-02-2020 Lipase Lipase Lab Routine Daily for 3 Days starting 03/31/2020 until 04/02/2020, 2 completed [facility] Comment on above: Daily for 3 Days sta rting 03/31/2020 until 04/02/2020, 2 completed Liver stiffness by US.transient elastography [facility] Patient Education [facility] [place] Work Phone: Patient referral [facility] Work Phone: Phase I & II - meter ed glucose Phase I & II - metered glucose Point of Care Testing Routine As Needed until discontinued starting 09/14/2019 [facility] Comment on above: As Needed until disc ontinued starting 09/14/2019 End: 09-29-2019 Pulse Oximetry Spot Check Pulse Oximetry Spot Check Respiratory Care Routine One Time for 1 Occurrences starting 09/29/2019 until 09/29/2019 [facility] Comment on above: One Time for 1 Occur rences starting 09/29/2019 until 09/29/2019 End: 09-14-2019 Pulse Oximetry Spot Check Pulse Oximetry Spot Check Respiratory Care Routine One Time for 1 Occurrences starting 09/14/2019 until 09/14/2019 [facility] Comment on above: One Time for 1 Occur rences starting 09/14/2019 until 09/14/2019 End: 09-14-2019 Surgical Pathology Surgical Pathology Lab Routine Once for 1 Occurrences starting 09/14/2019 until 09/14/2019 [facility] Comment on above: Once for 1 Occurrenc es starting 09/14/2019 until 09/14/2019 Surgical Pathology Surgical Path ology Lab Routine 09/14/2019 8:45 AM EST [facility] End: 03-31-2020 Triglyceride [Mass/Vol] Triglyceride Lab Routine One Time for 1 Occurrences starting 03/31/2020 until 03/31/2020 [facility] Comment on above: One Time for 1 Occur rences starting 03/31/2020 until 03/31/2020 Triglyceride [Mass/Vol] Triglyceride Lab Routine 03/31/2020 1:54 AM EDT [place] Troponin T.cardiac [Mass/volume] in Serum or Plasma by High sensitivity method [facility] End: 07-12-2019 XR Unlisted Fluoroscopic Procedur XR Unlisted Fluoroscopic Procedur Imaging Routine Once for 1 Occurrences starting 07/12/2019 until 07/12/2019 [place] Comment on above: Once for 1 Occurrenc es starting 07/12/2019 until 07/12/2019 XR Unlisted Fluoroscopic Procedur XR Unlisted Fluoroscopic Procedur Imaging Routine 07/12/2019 3:46 PM EDT [place] Immunizations Immunization Date Immunization Notes Care Provider Fa neda 05-16-2025 zoster vaccine recombinant; Translations: [Shingrix] BOBBY FOUNTAIN DO [facility] 08-31-2024 tetanus toxoid, redu arely diphtheria toxoid, and acellular pertussis vaccine, adsorbed; Translations: [Boostrix (Tdap)] BOBBY FOUNTAIN DO [facility] 04-09-2021 COVID-19, mRNA, LNP- S, PF, 100 mcg/ 0.5 mL dose; Translations: [Moderna COVID-19 Vaccine] PK RUTLEDGE MD [facility] 03-12-2021 COVID-19, mRNA, LNP- S, PF, 100 mcg/ 0.5 mL dose; Translations: [Moderna COVID-19 Vaccine] PK RUTLEDGE MD [facility] 09-14-2020 influenza, injectabl e, quadrivalent, preservative free; Translations: [Fluarix PF Quadrivalent ] PK RUTLEDGE MD [facility] 09-14-2020 influenza virus vacc ine, unspecified formulation Harini Mcgill APRN.RETIREMENT SALES CONSULTANT Work Phone: [facility] 08-10-2015 influenza virus vacc ine, unspecified formulation PK RUTLEDGE MD [facility] 08-10-2015 influenza, injectabl e, quadrivalent, preservative free Paulie Torres MD Work Phone: [id number] Work Phone: 07-27-2015 influenza virus vacc ine, unspecified formulation PK RUTLEDGE MD [facility] 07-27-2015 influenza, seasonal, injectable Paulie Torres MD Work Phone: [facility] Work Phone: 11-01-2014 pneumococcal polysaccharide vaccine, 23 valent PK RUTLEDGE MD [facility] 08-18-2013 tetanus toxoid, redu arely diphtheria toxoid, and acellular pertussis vaccine, adsorbed PK RUTLEDGE MD [facility] Payers Date Payer Category Payer Self-pay [id number] 2022 Medicaid [id number] 2022 Unknown 2022 Unknown [id number] 2017 Unknown [id number] 1. [id number] 1960 Unknown [id number] 2.16.8 [id number] 1960 Unknown [id number] 2.16.8 40.1.094200.3.579.2.627 1960 Unknown [id number] 2.16.8 40.1.127580.3.579.2.627 1960 Unknown [id number] 2.16.8 40.1.092410.3.579.2.627 1960 Unknown [id number] 2.16.8 40.1.742972.3.579.2.627 1960 Unknown [id number] 2.16.8 40.1.793469.3.579.2.627 1960 Unknown [id number] 2.16.8 40.1.843877.3.579.2.627 1960 Unknown [id number] 2.. [id number] 1960 Unknown [id number] 2.16.8 40.1.058274.3.579.2.627 1960 Unknown [id number] 2.16.8 40.1.564775.3.579.2.627 1960 Unknown [id number] 2.16.8 40.1.366792.3.579.2.627 Unknown [id number] Unknown [id number] 2.16.8 [id number] Unknown [id number] 2.16.8 [id number] Unknown [id number] 2.16.8 [id number] Unknown [id number] 2.16.8 40.1.706758.3.579.2.462 Unknown [id number] 2.16.8 [id number] Unknown [id number] 2.16.8 [id number] Unknown [id number] 2.16.8 [id number] Social History Date Type Detail Facility Start: 07-12-2019 End: 02-22-2025 Tobacco smoking status NHIS Former smoker [place], [place] Comment on above: no tobacco smoke exp osure Start: 11-09-1986 End: 03-12-2019 History of tobacco use Current smoker [place] Start: 11-09-1986 End: 03-12-2019 History of tobacco use Cigarette [place] Start: 07-12-2019 End: 10-05-2020 Alcohol intake Not Currently [facility] Start: 04-08-2019 Tobacco Comment quit in the hospital [place] Start: 07-10-2019 Alcohol Comment Last drinking in 02/2019, hx EtoH, never AA program in 2000 [place], [place] Start: 1960 Sex Assigned At Not on file [place] Start: 09-14-2019 End: 09-29-2019 Alcohol intake Ex-drinker (finding) [facility] Y Sex Assigned At [facility] Start: 02-13-2022 End: 10-06-2023 Tobacco smoking status NHIS Unknown if ever smoked [facility] Start: 03-13-2019 Occasional [facility] [place] Start: 03-13-2019 Marijuana [facility] [place] Start: 03-19-2019 Cigarettes [facility] [place] Start: 1960 Sex Assigned At Male [facility] Start: 11-01-2014 End: 02-22-2025 Sex Male (finding) [facility] Start: 01-13-2025 Tobacco smoking stat us NHIS Smokes tobacco daily [facility] Start: 01-13-2025 Tobacco use and exposure Smokeless tobacco non-user [facility] Start: 10-05-2020 End: 01-13-2025 History of Social function [facility] National Score (1-100), lower number is lower risk Not on file [facility] Goals Date Patient Goal Desired Activity /State Functional Status Date Assessment Result Facility 12-21-2021 Functional status Activity Ability Indepe ndent [facility] Work Phone: 12-20-2021 Functional status Up ad trisha [facility] [place] Work Phone: Mental Status Date Assessment Result Facility 02-22-2025 Cognitive function Level Of Cons ciousness Awake;Alert;Appropriate;Follow s Commands [facility] Work Phone: 12-22-2024 Cognitive function Level Of Cons ciousness Awake;Alert;Appropriate;Follow s Commands [facility] Work Phone: 08-09-2023 Cognitive function Awake;Alert;A ppropriate;Follow s Commands [facility] Work Phone: 07-03-2023 Cognitive function Level Of Cons ciousness Awake;Alert;Appropriate;Follow s Commands [facility] Work Phone: 03-28-2023 Cognitive function Sedated [facility] [place] [facility] Work Phone: 11-05-2022 Cognitive function Level Of Cons ciousness Awake;Alert;Appropriate;Follow s Commands [facility] Work Phone: 12-21-2021 Cognitive function Voice/Name [facility] [place] [facility] Work Phone: Clinical Notes 03-18-2019 to 07-19-2025 Carmela Pimentel PA-C - 02/07/2025 10:38 AM Harini Braun APRN.RETIREMENT SALES CONSULTANT - 01/13/2025 11:36 AM EDT Note Date & Type Note Facility 07-19-2025 Progress note [facility] 02-07-2025 Note HNO ID: [id number] Author: CARMELA PIMENTEL PA-C Service: ? Author Type: Physician Aircraft Painter Apprentice Type: Progress Notes Filed: 02/07/2025 10:46 Note Text: This note was created using NoteWriter. Subjective Chloe Cheney is a 64 year old male. Patient is a 64-year-old male who complains of ongoing redness and swelling to his bilateral eyelids that has been present for the past approximately 2 weeks. Patient was seen and evaluated at another urgent care facility on 28 January 2025 at which time he was prescribed erythromycin 0.5% ophthalmic ointment. Patient states that he has been applying the ophthalmic ointment as directed and has noted no improvement in his symptoms. Patient was also diagnosed with bilateral styes to both of his eyes at that time. Patient reports increased redness and irritation to his eyes but denies ear pain. Patient does not wear contact lenses and states that his vision is intact and unchanged. Eye Problem Review of Systems Eyes: Positive for redness and itching. Negative for photophobia, pain, discharge and visual disturbance. Redness and Swelling to Eyelids All other systems reviewed and are negative. Objective BP 128/82 Pulse 67 Temp 36.3 ?C (97.3 ?F) (Tympanic) Resp 16 Wt 79.6 kg (175 lb 7.8 oz) SpO2 98% Physical Exam Vitals and nursing note reviewed. Constitutional: Appearance: Normal appearance. He is normal weight. HENT: Head: Normocephalic and atraumatic. Right Ear: External ear normal. Left Ear: External ear normal. Nose: Nose normal. Mouth/Throat: Mouth: Mucous membranes are moist. Pharynx: Oropharynx is clear. Eyes: General: Right eye: No discharge. Left eye: No discharge. Extraocular Movements: Extraocular movements intact. Pupils: Pupils are equal, round, and reactive to light. Comments: Injection is noted to the bilateral conjunctivae. No discharge or matting is noted to the bilateral eyes. There is erythema and edema noted to the bilateral eyelids. Patient also appears to have multiple pustules to the margins of the bilateral inferior eyelids. Pupils are equal, round and reactive to light and accommodation and patient demonstrates full extraocular range of motion bilaterally. Bilateral periorbital skin is clear without erythema or edema. Cardiovascular: Rate and Rhythm: Normal rate. Pulses: Normal pulses. Pulmonary: Effort: Pulmonary effort is normal. Breath sounds: Normal breath sounds. Musculoskeletal: Cervical back: Normal range of motion and neck supple. Skin: General: Skin is warm and dry. Capillary Refill: Capillary refill takes less than 2 seconds. Neurological: General: No focal deficit present. Mental Status: He is alert and oriented to person, place, and time. Psychiatric: Mood and Affect: Mood normal. Behavior: Behavior normal. Thought Content: Thought content normal. Judgment: Judgment normal. Assessment and Plan Physical exam findings as noted above. 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 Patient verbalizes excellent understanding and states that he will schedule an appointment as advised. CLINICAL IMPRESSION: Blepharitis Bilateral Eyes; Hordeolum Externum Bilateral Eyes ASSESSMENT/PLAN: 1. Blepharitis of upper and lower eyelids of both eyes, unspecified type - ICD9: 373.00, ICD10: H01.00A, H01.00B - DOXYCYCLINE HYCLATE 100 MG TABLET MDM Risk of Complications, Morbidity, and/or Mortality Presenting problems: low Diagnostic procedures: low Management options: judy Pimentel PA-C [facility] 02-07-2025 History of Present illness Narrative This note was created using PodTech[employer]. Subjective Chloe Cheney is a 64 year old male. Patient is a 64-year-old male who complains of ongoing redness and swelling to his bilateral eyelids that has been present for the past approximately 2 weeks. Patient was seen and evaluated at another urgent care facility on 28 January 2025 at which time he was prescribed erythromycin 0.5% ophthalmic ointment. Patient states that he has been applying the ophthalmic ointment as directed and has noted no improvement in his symptoms. Patient was also diagnosed with bilateral styes to both of his eyes at that time. Patient reports increased redness and irritation to his eyes but denies ear pain. Patient does not wear contact lenses and states that his vision is intact and unchanged. Eye Problem Review of Systems Eyes: Positive for redness and itching. Negative for photophobia, pain, discharge and visual disturbance. Redness and Swelling to Eyelids All other systems reviewed and are negative. Objective BP 128/82 Pulse 67 Temp 36.3 C (97.3 F) (Tympanic) Resp 16 Wt 79.6 kg (175 lb 7.8 oz) SpO2 98% Physical Exam Vitals and nursing note reviewed. Constitutional: Appearance: Normal appearance. He is normal weight. HENT: Head: Normocephalic and atraumatic. Right Ear: External ear normal. Left Ear: External ear normal. Nose: Nose normal. Mouth/Throat: Mouth: Mucous membranes are moist. Pharynx: Oropharynx is clear. Eyes: General: Right eye: No discharge. Left eye: No discharge. Extraocular Movements: Extraocular movements intact. Pupils: Pupils are equal, round, and reactive to light. Comments: Injection is noted to the bilateral conjunctivae. No discharge or matting is noted to the bilateral eyes. There is erythema and edema noted to the bilateral eyelids. Patient also appears to have multiple pustules to the margins of the bilateral inferior eyelids. Pupils are equal, round and reactive to light and accommodation and patient demonstrates full extraocular range of motion bilaterally. Bilateral periorbital skin is clear without erythema or edema. Cardiovascular: Rate and Rhythm: Normal rate. Pulses: Normal pulses. Pulmonary: Effort: Pulmonary effort is normal. Breath sounds: Normal breath sounds. Musculoskeletal: Cervical back: Normal range of motion and neck supple. Skin: General: Skin is warm and dry. Capillary Refill: Capillary refill takes less than 2 seconds. Neurological: General: No focal deficit present. Mental Status: He is alert and oriented to person, place, and time. Psychiatric: Mood and Affect: Mood normal. Behavior: Behavior normal. Thought Content: Thought content normal. Judgment: Judgment normal. Assessment and Plan Physical exam findings as noted above. 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 Patient verbalizes excellent understanding and states that he will schedule an appointment as advised. CLINICAL IMPRESSION: Blepharitis Bilateral Eyes; Hordeolum Externum Bilateral Eyes ASSESSMENT/PLAN: 1. Blepharitis of upper and lower eyelids of both eyes, unspecified type - ICD9: 373.00, ICD10: H01.00A, H01.00B - DOXYCYCLINE HYCLATE 100 MG TABLET MDM Risk of Complications, Morbidity, and/or Mortality Presenting problems: low Diagnostic procedures: low Management options: judy Pimentel PA-C documented in this encounter [facility] 01-13-2025 Note HNO ID: [id number] Author: HARINI MCGILL APRN.ESAU Service: ? Author Type: Nurse Practitioner Type: Progress Notes Filed: 01/13/2025 11:39 Note Text: [facility] Subjective Chloe Cheney is a 64 year old male. HPI Chloe Cheney is a 64 year old male who presents today for CC of right eye irritation. This started few days ago/getting worse. Has tried nothing for relief. Symptoms are worsened by nothing. 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 .Patient presents with: Eye Complaint No past medical history on file. No past surgical history on file. ALLERGIES Amoxicillin-Pot Clavulanate, Mobic [Meloxicam], and Stromectol [Ivermectin] MEDICATIONS traZODone (DESYREL) 50 mg tablet Take 50 mg by mouth daily at bedtime. hydrOXYzine HCl (ATARAX) 10 mg tablet TAKE 1 TABLET BY MOUTH THREE TIMES DAILY NEEDED FOR ANXIETY - CAN TAKE 2 (TWO) TABLETS IF NEEDED CREON 36,000-114,000- 180,000 unit delayed release capsule TAKE 2 CAPSULES BY MOUTH 3 TIMES DAILY WITH MEALS FOR 90 DAYS lisinopril (ZESTRIL) 30 mg tablet Take 30 mg by mouth once daily. No family history on file. Social History Tobacco Use Smoking status: Every Day Smokeless tobacco: Never Patient presents with: Eye Complaint HPI Review of Systems Objective BP 120/90 Pulse 92 Resp 16 Wt 79 kg (174 lb 2.6 oz) Physical Exam Constitutional: General: He is not in acute distress. Appearance: He is not toxic-appearing or diaphoretic. HENT: Head: Normocephalic and atraumatic. Eyes: Pulmonary: Effort: Pulmonary effort is normal. No accessory muscle usage or respiratory distress. Neurological: Mental Status: He is alert and oriented to person, place, and time. {ASSESSMENT/PLAN: 1. Foreign body of right eye, initial encounter - ICD9: 930.9, E914, ICD10: T15.91XA Referred to eye dr, appointment made at [facility] today Harini Mcgill APRN.RETIREMENT SALES CONSULTANT Disposition The patient was discharged. Procedures [facility] 01-13-2025 History of Present illness Narrative Formatting of this note is different fro m the original. [facility] Subjective Chloe Cheney is a 64 year old male. HPI Chloe Cheney is a 64 year old male who presents today for CC of right eye irritation. This started few days ago/getting worse. Has tried nothing for relief. Symptoms are worsened by nothing. 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 .Patient presents with: Eye Complaint No past medical history on file. No past surgical history on file. ALLERGIES Amoxicillin-Pot Clavulanate, Mobic [Meloxicam], and Stromectol [Ivermectin] MEDICATIONS traZODone (DESYREL) 50 mg tablet Take 50 mg by mouth daily at bedtime. hydrOXYzine HCl (ATARAX) 10 mg tablet TAKE 1 TABLET BY MOUTH THREE TIMES DAILY NEEDED FOR ANXIETY - CAN TAKE 2 (TWO) TABLETS IF NEEDED CREON 36,000-114,000- 180,000 unit delayed release capsule TAKE 2 CAPSULES BY MOUTH 3 TIMES DAILY WITH MEALS FOR 90 DAYS lisinopril (ZESTRIL) 30 mg tablet Take 30 mg by mouth once daily. No family history on file. Social History Tobacco Use Smoking status: Every Day Smokeless tobacco: Never Patient presents with: Eye Complaint HPI Review of Systems Objective BP 120/90 Pulse 92 Resp 16 Wt 79 kg (174 lb 2.6 oz) Physical Exam Constitutional: General: He is not in acute distress. Appearance: He is not toxic-appearing or diaphoretic. HENT: Head: Normocephalic and atraumatic. Eyes: Pulmonary: Effort: Pulmonary effort is normal. No accessory muscle usage or respiratory distress. Neurological: Mental Status: He is alert and oriented to person, place, and time. {ASSESSMENT/PLAN: 1. Foreign body of right eye, initial encounter - ICD9: 930.9, E914, ICD10: T15.91XA Referred to eye , appointment made at [facility] today Harini Mcgill APRN.RETIREMENT SALES CONSULTANT Disposition The patient was discharged. Procedures documented in this encounter [facility] 01-10-2025 Evaluation note Diagnosis Onset Date Resolution Hx of pancreatitis chronic January 10, 2025 8:53am Pancreatitis chronic January 10, 2025 8:53am Tubular adenoma of colon chronic January 10, 2025 8:53am Abdominal pain noneactive December 8:53am [facility] Work Phone: 1(143) 213-737410-14-2023 Discharge summary Author Addy Ovalle [facility] August 09, 2023 8:48pm Note Date/Time August 09, 2023 7 :17pm [facility] Medical Records Department [address] [place] [address] Emergency Department Summary 08/09/23 MR#: [id number] Acct: [id number] Name: CHLOE CHENEY Rep #:[id number] : 1960 62 From: Addy Ovalle DO PCP: Dr. Bobby Fountain, DO Status:REG ER Location: ED HPI History of Present Illness Chief Complaint: Chest Pain Narrative Narrative: 62-year-old male presenting with epigastric/retrosternal chest pain which is sharp in nature which started about 3 hours prior to presentation. Patient states that he is an argument with his girlfriend for the last 24 hours and he states that he has a history of anxiety and thinks that it might be part of the problem. Patient also states that since he had gallbladder surgery he gets intermittent attacks of pain in his epigastrium. States that sometimes is worsewhen he eats. Currently is pain- free. Denies any cardiac history. He states he has a history of recurrent pancreatitis but does not believe it is secondary to alcoholism. [facility] Medical History Anxiety High cholesterol History of echocardiogram Hx of pancreatitis Hypertension Non-smoker Pancreatitis Wears glasses Home Medications omeprazole 40 mg capsule,delayed release 40 mg PO DAILY 12/17/21 [History Last Taken 12/17/21] cholecalciferol (vitamin D3) 50 mcg (2,000 unit) capsule (Vitamin D3) 50 mcg PO DAILY 01/01/23 [History Last Taken Unknown] [id number] 36,000-114,000-180,000 unit capsule,delay rel (Creon) See Rx Instructions PO .COMPLEX #360 caps 06/11/23 [Rx Last Taken Unknown] lisinopril 20 mg tablet 30 mg PO DAILY 07/03/23 [History Last Taken Unknown] Allergy/AdvReac Type Severity Reaction Status Date / Time amoxicillin [From Augmentin] Allergy Swelling Verified 08/09/23 17:09 clavulanic acid Allergy Swelling Verified 08/09/23 17:09 [From Augmentin] Penicillins Allergy PT UNSURE Verified 08/09/23 17:09 OF REACTION hydromorphone [From Dilaudid] AdvReac Other Verified 08/09/23 17:09 Family History (Reviewed 04/08/23 @ 14:03 by Becky Brian QUALITY ASSURANCE SUPERVISOR CHASSIS, QUALITY ASSURANCE SUPERVISOR CHASSIS-C) Father Myocardial infarction Surgical History History of ERCP Hx of cholecystectomy S/P appendectomy Social History Smoking Status: Former smoker EXAM Physical Exam Const Vital Signs: 08/09/23 17:09 08/09/23 17:23 08/09/23 17:42 Temperature 97.8 F Temperature Source Temporal Pulse Rate 85 Respiratory Rate 18 Respiratory Effort Normal Non-Labored Blood Pressure 147/114 H Blood Pressure Mean 125 Pulse Ox 95 Oxygen Delivery Method Room Air Room Air 08/09/23 19:59 Temperature Temperature Source Pulse Rate 64 Respiratory Rate 14 Respiratory Effort Blood Pressure 159/101 H Blood Pressure Mean 120 Pulse Ox 100 Oxygen Delivery Method Room Air MDM MDM MDM Narrative Medical decision making narrative: Presenting with chest pain. Differential includes anxiety, ACS, CHF, pneumonia. Considered PE however patient PERC negative. Blood work ultimately unremarkable. EKG shows a normal sinus rhythm with a ventricular of 61 bpm without sign of ischemic change or ectopy on my interpretation. Chest x-ray my interpretation shows no acute process. Initial high-sensitivity troponin was 4 and the second troponin is 5. There is no significant interval change. Liver enzymes came back normal. Lipase minimally elevated but not elevated enough to be pancreatitis. Patient currently pain- free. I feel he is stable for discharge home. Impression: 1. Chest pain 2. History of anxiety 3. history of pancreatitis Lab Data Labs: Laboratory Results - last 24 hr 08/09/23 08/09/23 08/09/23 17:40 17:40 18:08 WBC Cancelled 8.5 Corrected WBC Cancelled RBC Cancelled 4.78 Hgb Cancelled 13.9 Hct Cancelled 42.3 MCV Cancelled 88.5 MCH Cancelled 29.1 MCHC Cancelled 32.9 RDW Std Deviation Cancelled 42.2 RDW Coeff of Ghanshyam Cancelled 12.8 Plt Count Cancelled 170 MPV Cancelled 9.8 Immature Gran % (Auto) Cancelled 0.200 Neut % (Auto) Cancelled 76.8 H Lymph % (Auto) Cancelled 15.9 L Culberson % (Auto) Cancelled 6.1 Eos % (Auto) Cancelled 0.5 Baso % (Auto) Cancelled 0.5 Absolute Neuts (auto) Cancelled 6.5 Absolute Lymphs (auto) Cancelled 1.35 Total Counted Cancelled Neutrophils % (Manual) Cancelled Band Neutrophils % Cancelled Lymphocytes % (Manual) Cancelled Monocytes % (Manual) Cancelled Eosinophils % (Manual) Cancelled Basophils % (Manual) Cancelled Metamyelocytes % Cancelled Myelocytes % Cancelled Promyelocytes % Cancelled Blast Cells % Cancelled Plasma Cell % (Manual) Cancelled Other Cells % Cancelled Nucleated RBC % Cancelled 0 Nucleated RBCs/100 WBC Cancelled Differential Comment Cancelled Diff Path Review Cancelled Hypersegmented Neuts Cancelled Atypical Lymphocytes Cancelled Reactive Lymphocytes Cancelled Smudge Cells Cancelled Toxic Granulation Cancelled Toxic Vacuolation Cancelled Dohle Bodies Cancelled Katya Rods Cancelled Platelet Estimate Cancelled Plt Morphology Comment Cancelled RBC Morphology Cancelled Cancelled Polychromasia Cancelled Hypochromasia Cancelled Poikilocytosis Cancelled Basophilic Stippling Cancelled Anisocytosis Cancelled Microcytosis Cancelled Macrocytosis Cancelled Spherocytes Cancelled Sickle Cells Cancelled Target Cells Cancelled Tear Drop Cells Cancelled Ovalocytes Cancelled Stomatocytes Cancelled Jim-Jacona Bodies Cancelled [place] Cells Cancelled Bite Cells Cancelled Crenated Cell Cancelled Acanthocytes (Spur) Cancelled Rouleaux Cancelled Schistocytes Cancelled Sodium 138 Potassium 3.3 L Chloride 105 Carbon Dioxide 27.0 Anion Gap 6 BUN 16 Creatinine 1.51 H Estim Creat Clear Calc 54.02 Est GFR (MDRD) Af Amer 60 Est GFR (MDRD) Non-Af 50 L BUN/Creatinine Ratio 10.6 Glucose 142 H Calcium 9.0 Total Bilirubin 0.70 Direct Bilirubin 0.18 AST 14 L ALT 34 Alkaline Phosphatase 76 Troponin I High Sens 4 Total Protein 7.9 Albumin 4.0 Globulin 3.9 Lipase 85 H 08/09/23 19:50 WBC Corrected WBC RBC Hgb Hct MCV MCH MCHC RDW Std Deviation RDW Coeff of Ghanshyam Plt Count MPV Immature Gran % (Auto) Neut % (Auto) Lymph % (Auto) Culberson % (Auto) Eos % (Auto) Baso % (Auto) Absolute Neuts (auto) Absolute Lymphs (auto) Total Counted Neutrophils % (Manual) Band Neutrophils % Lymphocytes % (Manual) Monocytes % (Manual) Eosinophils % (Manual) Basophils % (Manual) Metamyelocytes % Myelocytes % Promyelocytes % Blast Cells % Plasma Cell % (Manual) Other Cells % Nucleated RBC % Nucleated RBCs/100 WBC Differential Comment Diff Path Review Hypersegmented Neuts Atypical Lymphocytes Reactive Lymphocytes Smudge Cells Toxic Granulation Toxic Vacuolation Dohle Bodies Katya Rods Platelet Estimate Plt Morphology Comment RBC Morphology Polychromasia Hypochromasia Poikilocytosis Basophilic Stippling Anisocytosis Microcytosis Macrocytosis Spherocytes Sickle Cells Target Cells Tear Drop Cells Ovalocytes Stomatocytes Jim-Jacona Bodies [place] Cells Bite Cells Crenated Cell Acanthocytes (Spur) Rouleaux Schistocytes Sodium Potassium Chloride Carbon Dioxide Anion Gap BUN Creatinine Estim Creat Clear Calc Est GFR (MDRD) Af Amer Est GFR (MDRD) Non-Af BUN/Creatinine Ratio Glucose Calcium Total Bilirubin Direct Bilirubin AST ALT Alkaline Phosphatase Troponin I High Sens 5 Total Protein Albumin Globulin Lipase Radiography Diagnostic Testing: Clinical Impression(s) from Imaging Studies Chest X-Ray 08/09/23 18:00 IMPRESSION: Normal x-ray examination of the chest. Electronically Signed: Edmar Benítez MD at 18:33 EDT , Discharge Plan Triage Chief Complaint: Chest Pain ED Provider: Addy Ovalle Dx/Rx/DC Orders Instructions: ED Chest Pain, Noncardiac Prescriptions: No Action omeprazole 40 mg capsule,delayed release(DR/EC) 40 mg PO DAILY Patient Comments: TAKE 1 CAPSULE Oral EVERY Day cholecalciferol (vitamin D3) [Vitamin D3] 50 mcg (2,000 unit) Capsule 50 mcg PO DAILY lisinopril 20 mg tablet 30 mg PO DAILY Creon 36,000-114,000- 180,000 unit capsule,delayed release(DR/EC) See Rx Instructions PO .COMPLEX Qty: 360 5RF Rx Instructions: take 1-2 capsules with snacks, take 2-3 capsules with meals Primary Care Provider: Bobby Fountain Referrals: Bobby Fountain DO [Primary Care Provider] - Disposition Disposition: Home, Self Care What to do if you have Problems For any increased pain, shortness of breath, bleeding, nausea or vomiting, chestpain, or any unexpected problems, contact your Primary Care Provider. Call [facility] ([phone]) or report to the closest Emergency Room. Call 911 if necessary. 08/09/232047 <Electronically signed by Addy Ovalle DO> Cosigner Signature (if applicable): CC: Dr. Bobby Fountain DO ~ Signed [facility] Work Phone: 1(540) 917-638609-07-2023 Discharge summary Author Brock Morocho [facility] July 03, 2023 10:44pm Note Date/Time July 03, 2023 10:44pm [facility] Medical Records Department [address] [place] [address] Emergency Department Summary 07/03/23 MR#: [id number] Acct: [id number] Name: CHLOE CHENEY Rep #:[id number] : 1960 62 From: Brock Morocho MD PCP: Dr. Bobby Fountain DO Status:REG ER Location: ED HPI History of Present Illness Chief Complaint: General Illness Informant: patient Narrative Narrative: Patient states tonight over the last few hours he was feeling fatigued, and because of waking up in sepsis wants, having chronic pancreatitis that gives himsome mild chronic diarrhea and having to take Creon, this got him concerned about the last things that he has eaten, he states he has not been eating very healthfully, eating a lot of sugar, thinking maybe his potassium was low, etc. He checked his blood pressure and it was high --140s/90s. Similar readings here. He states he looked this up on the Internet and since somewhere it said with numbers 140/90 you should either make an appointment with her doctor or go to the ER so he came to the ER tonight, admitting that he is feeling a little anxious, and thinking that is what is been making him feel a little short of breath just tonight as well. He denies having that now. He denies any chest discomfort. His right shoulder has been bothering him a little, sore, hurts more to move around but not as bad now. No palpitations lightheadedness or syncope/near syncope. No other recent illness. No changes in medications. No alcohol since he was diagnosed with pancreatitis. [facility] Medical History Anxiety High cholesterol History of echocardiogram Hx of pancreatitis Hypertension Non-smoker Pancreatitis Wears glasses Home Medications omeprazole 40 mg capsule,delayed release 40 mg PO DAILY 12/17/21 [History Last Taken 12/17/21] cholecalciferol (vitamin D3) 50 mcg (2,000 unit) capsule (Vitamin D3) 50 mcg PO DAILY 01/01/23 [History Last Taken Unknown] [id number] 36,000-114,000-180,000 unit capsule,delay rel (Creon) See Rx Instructions PO .COMPLEX #360 caps 06/11/23 [Rx Last Taken Unknown] lisinopril 20 mg tablet 30 mg PO DAILY 07/03/23 [History Last Taken Unknown] Allergy/AdvReac Type Severity Reaction Status Date / Time amoxicillin [From Augmentin] Allergy Swelling Verified 07/03/23 21:58 clavulanic acid Allergy Swelling Verified 07/03/23 21:58 [From Augmentin] Penicillins Allergy PT UNSURE Verified 07/03/23 21:58 OF REACTION hydromorphone [From Dilaudid] AdvReac Other Verified 07/03/23 21:58 Family History (Reviewed 04/08/23 @ 14:03 by Becky Brian QUALITY ASSURANCE SUPERVISOR CHASSIS, QUALITY ASSURANCE SUPERVISOR CHASSIS-C) Father Myocardial infarction Surgical History History of ERCP Hx of cholecystectomy S/P appendectomy Social History Smoking Status: Former smoker ROS ROS ED Constitutional Constitutional ED: Reports fatigue; Denies chills or fever(s) Eyes Eyes: Denies change in vision or diplopia ENT ENT ED: Denies rhinorrhea or sore throat Cardiovascular Cardiovascular: Denies chest pain or palpitations Respiratory/Chest Respiratory/Chest: Reports as per HPI and dyspnea; Denies cough Gastrointestinal Gastrointestinal: Denies abdominal pain, diarrhea, nausea or vomiting Genitourinary Genitourinary ED: Denies dysuria or hematuria Musculoskeletal Musculoskeletal: Denies back pain or neck pain Integumentary Denies abscess or rash Neurologic Neurologic: Denies headache(s), paresthesias or weakness Psychiatric Psychiatric: Reports anxiety; Denies suicidal thoughts EXAM Physical Exam Const Vital Signs: 07/03/23 21:56 07/03/23 22:12 07/03/23 22:13 Temperature 98.3 F Temperature Source Temporal Pulse Rate 66 Respiratory Rate 18 17 Respiratory Effort Normal Non-Labored Respiratory Pattern Normal Blood Pressure 170/90 H 140/96 H Blood Pressure Mean 116 110 Pulse Ox 98 Oxygen Delivery Method Room Air Room Air Positive well nourished and well developed General Appearance ED: well developed and NAD HEENT Reports moist mucous membranes normocephalic and atraumatic Eyes PERRL and EOMs intact bilaterally Neck full ROM and supple Resp normal respiratory effort and clear to auscultation bilaterally Cardio regular rate, regular rhythm and no murmurs GI non-tender and non-distended Auscultation: normoactive bowel sounds Palpation: soft Back/Spine no CVA tenderness General Back: other FROM Extremity normal to inspection General Extremety ED: Negative for edema, pulses abnormal or tenderness General Extremity: Negative for edema or pulses abnormal Neuro oriented x3, CN's II-XII intact bilaterally and no sensory deficits noted Sensorium / Orientation: awake and alert Motor Exam: strength 5/5 throughout Psych mental status grossly normal Skin no rashes or lesions noted and no wounds MDM MDM MDM Narrative Medical decision making narrative: Reassured patient. We discussed the blood pressure numbers, 140s/90s is nothingemergent, and my recommendation is to simply have this reevaluated. I offered to do some blood work and check his potassium level/electrolytes, blood counts, EKG. He declines and states he was feeling better just talking with me, and we discussed reasons to return, I am okay with him being discharged home I do not think he is having unstable angina, but we did discuss that as a less likely possibility. He understands. His lungs are clear, he is not tachycardic, and his pulse ox is 90% on room air. He has no thromboembolic risk factors, nor does he have any clinical signs of a DVT nor risk for that recently. Discharge Plan Triage Chief Complaint: General Illness ED Provider: Brock Morocho Dx/Rx/DC Orders Clinical Impression: Episode of hypertension, Anxiety Instructions: Blood Pressure Check Steps Prescriptions: No Action omeprazole 40 mg capsule,delayed release(DR/EC) 40 mg PO DAILY Patient Comments: TAKE 1 CAPSULE Oral EVERY Day cholecalciferol (vitamin D3) [Vitamin D3] 50 mcg (2,000 unit) Capsule 50 mcg PO DAILY lisinopril 20 mg tablet 30 mg PO DAILY Creon 36,000-114,000- 180,000 unit capsule,delayed release(DR/EC) See Rx Instructions PO .COMPLEX Qty: 360 5RF Rx Instructions: take 1-2 capsules with snacks, take 2-3 capsules with meals Primary Care Provider: Bobby Fountain Referrals: Bobby Fountain DO [Primary Care Provider] - 5-7 Days Disposition Disposition: Home, Self Care What to do if you have Problems For any increased pain, shortness of breath, bleeding, nausea or vomiting, chestpain, or any unexpected problems, contact your Primary Care Provider. Call [facility] ([phone]) or report to the closest Emergency Room. Call 911 if necessary. 07/03/232243 <Electronically signed by Brock Morocho MD> Cosigner Signature (if applicable): CC: Dr. Bobby Fountain DO ~ Signed [facility] Work Phone: 1(536) 332-339306-02-[address] [facility] 03-28-[address] [facility]2023 Note [facility] [id number] [facility] 01-05-2023 Note [facility] [id number] [facility] 01-05-2023 Note [facility] [id number] [facility] 01-05-2023 Note [facility] [id number] [facility] 01-05-2023 Note [facility] [id number] [facility] [facility] 01-05-2023 Note [facility] [id number] [facility] 02-07-2022 Hospital Discharge instructions Patient Education 12/03/2021 17:16:25 Chronic Pancreatitis [...] for a few days to give your pancreastime to recover. During this time, you will be given IV fluids to keep you hydrated. Controlling pain. You may be given pain medicines by mouth (orally) or as injections. Improving digestion. You may be given: ?Medicines to replace your pancreatic enzymes. ?Vitamin supplements. ?A specific diet to follow. You may work with a diet and food and nutrition professor (dietitian) to make an eating plan. Surgery [...] your urine pale yellow. General instructions Take bmsr-uba-uhoupfj and prescription medicines only as told by your health care provider. These include vitamin supplements. Do not drive or use heavy machinery while taking prescription pain medicine. If you are taking prescription pain medicine, take actions to prevent or treat constipation. Your health care provider may recommend that you: ?Take an lpgx-nix-bqlvuex or prescription medicine for constipation. ?Eat foods [...] upper abdomen and back, and cause diabetes. Inflammationcan also irritate other organs in the abdomen near the pancreas. Common causes of this condition are alcohol abuse, gallstones, high (elevated) levels of triglycerides, and certain medicines. This condition is sometimes treated at a hospital and may involve resting the pancreas, controllingpain, replacing enzymes, and avoiding alcohol. This information is not intended to replace advice given to you by your health care provider. Make sure you discuss any questions you have with your health care provider. Document Released: 11/08/2016 Document Revised: 08/02/2019 Document Reviewed: 06/12/2018 [employer] Patient Education 2020 [employer]. 12/03/2021 17:16:11 Acute Pancreatitis, Wudf-wp-Ukxq Acute Pancreatitis Acute pancreatitis happens when the [...] if it caused your condition. Medicines Take scin-pax-uqohebe and prescription medicines only as told by your doctor. Ask your doctor if the medicine prescribed to you: ?Requires you to avoid driving or using heavy machinery. ?Can cause trouble pooping (constipation). You may need to take steps to prevent or treat trouble pooping: ?Take sebo-euy-ldzzqdu or prescription medicines. ?Eat foods that are high in fiber. These include beans, whole grains, and fresh fruits and vegetables. ?Limit foods that are high in fat and sugar. These include fried or sweet foods. General instructions Do not use any products that contain nicotine or tobacco, such as cigarettes, e- cigarettes, and chewing tobacco. If you need help [...] 03/31/2009 Document Revised: 08/02/2019 Document Reviewed: 08/02/2019 [employer] Patient Education 2020 [employer]. Follow Up Care 12/02/2021 21:23:03 With:ANGEL COLE MD Address: [phone] When:5 to 7 days With:ROSIBEL ALBERTO MD Address: [address] [facility] [place] [address]- When:12/07/2021 13:15:00 Comments:Follow-up as scheduled [facility] 02-07-2022 Evaluation + Plan noteExtracted from: Title:History and Physical Author:OBDULIA HUYNH APRN-RETIREMENT SALES CONSULTANT Date:12/03/21 1. Acute on chronic pancreat itis 2. [...] evaluated for a 2nd opinion by another field operations technician. Anxiety continue home dose of as needed lorazepam for anxiety. Patient is quite depressed. He has been prescribed sertraline in the past but has not been utilizing this. He did speak with our ladies underwear operator this morning with some improvement in his [...] Appointments Appointment Date:12/07/2021 01:15:00 PM Scheduled Provider:ROSIBEL ALBERTO MD Location:[facility] Appointment Type:[facility] Hospital Follow-Up Appointment Date:01/17/2022 02:00:00 PM Scheduled Provider:ROSIBEL ALBERTO MD Location:[facility] Appointment Type:[facility] Future Scheduled Tests Radiology* MRI MRCP 11/26/21 [facility] 02-06-2022 Hospital Discharge instructions Patient Education 12/02/2021 [...] and smoking to help manage this disease. [id number] [employer] [place] [address]. All rights reserved. This information is not intended as a substitute for professional medical care. Always follow yourhealthcare professional's instructions. Follow Up Care 12/02/2021 10:31:54 With:ANGEL COLE MD Address: [phone] When:2-4 days [facility] 01-31-2022 Evaluation + Plan note Future Scheduled Tests Radiology* MRI MRCP 11/26/21 [facility] 12-11-2021 Hospital Discharge instructions Patient Education 10/06/2021 [...] with soap and water or use alcohol-based grease machine worker to prevent the spread of infection. Wash your hands after touching anyone who is sick. Wash your hands or use alcohol-based grease machine worker after using the toilet and before meals. [...] Keep uncooked meats away from cooked and uecgv-po-pes foods. Medicine You may use acetaminophen or [...] directed by your healthcare provider Javon story [phone] [employer]. [address] [place] [address], [place] [address]. All rights reserved. This information is not [...] cramping, and pain worse. If taking medicines: Zjju-qbl-bjafxij nausea and diarrhea medicines are generally OK [...] with soap and water and using alcohol-based grease machine worker is the best way to prevent the [...] Keep uncooked meats away from cooked and dhepn-fh-ltf foods. Use a food thermometer when cooking. [...] or as directed by your healthcare provider [phone] [employer]. [address] [place] [address]. All rights reserved. This information is not intended as a substitute for professional medical care. Always follow yourhealthcare professional's instructions. Follow Up Care 10/06/2021 13:16:36 With:ROSIBEL ALBERTO MD Address: [address] [place] [address]- When:2-4 days With:Go to emergency room if symptoms worsen Address:Unknown When:2-4 days [facility] 11-07-2021 Hospital Discharge instructions Patient Education 09/02/2021 [...] blood in stool Seizure Loss of consciousness [phone] [employer] [place] [address]. All rights reserved. This information is not intended as a substitute for professional medical care. Always follow yourhealthcare professional's instructions. Follow Up Care 09/02/2021 10:07:33 With:ANGEL COLE Address: [address] [address] [phone] Business (1) When:2-4 days Comments:Follow-up as needed. With:ROSIBEL ALBERTO Address: [address] [facility] [place] [address]- Business (1) When:2-4 days Comments:Schedule appointment for follow-up.Rock diet, avoid greasy, fatty, fried, spicy foods.Continue allroutine medications including hydrocodone for severe pain as needed.Return to the ED if symptoms worsen. [facility] 05-23-2019 History of Present illness Narrative* Mr. Cheney is a 61-year-old male who is referred by Dr. Lane ([facility]) to discuss surgical options for recurrent acute on chronic pancreatitis. * Patient reports recurrent episodes of acute pancreatitis starting 3 years ago. At that time, he washospitalized in [place] and required care in the ICU. He [...] December, he underwent EUS with Dr. Nia Arroyo. This demonstrated CBD of 9 mm without [...] Former smoker. Abstinent from alcohol. No illicits. PX-Ilozryrele-Nbvjsrtt Work Phone: Discharge summary Author Yvon Fox [facility] March 29, 2023 3:17am Note Date/Time March 29, 2023 3:12a m [facility] Medical Records Department [address] [place] [address] Emergency Department Summary 03/29/23 MR#: [id number] Acct: [id number] Name: CHLOE CHENEY Rep #:[id number] : 1960 62 From: Yvon Fox DO PCP: Dr. Bobby Fountain DO Status:REG ER Location: ED HPI History of Present Illness Chief Complaint: Abd Pain Informant: patient Narrative Narrative: Patient is a 62-year-old male with past medical history of hypertension and recurrent pancreatitis. He underwent a colonoscopy on Friday and he states afterwards he has been having difficulty urinating. He states he has the urge to urinate and then tries to do so and when he can get a teaspoon out. He states that he is now having lower abdominal pain and with the fact he cannot urinate comes in for evaluation. He denies any history of urinary retention in the past [facility] Medical History (Updated 03/29/23 @ 03:[address] Yvon Fox DO) Anxiety High cholesterol History of echocardiogram Hx of pancreatitis Hypertension Non-smoker Pancreatitis Wears glasses Home Medications mjwmjy-meqxqxkc-xruqeeo 12,000-38,000-60,000 unit capsule,delayed rel (Creon) 3 cap PO TIDCM 12/17/21 [History Last Taken 12/17/21] omeprazole 40 mg capsule,delayed release 40 mg PO DAILY 12/17/21 [History Last Taken 12/17/21] lisinopril 20 mg tablet 20 mg PO DAILY 30 days #30 tabs 11/06/22 [Rx Last Taken 03/28/23 05:45] cholecalciferol (vitamin D3) 50 mcg (2,000 unit) capsule (Vitamin D3) 50 mcg PO DAILY 01/01/23 [History Last Taken Unknown] Allergy/AdvReac Type Severity Reaction Status Date / Time amoxicillin [From Augmentin] Allergy Swelling Verified 03/29/23 01:57 clavulanic acid Allergy Swelling Verified 03/29/23 01:57 [From Augmentin] Penicillins Allergy PT UNSURE Verified 03/29/23 01:57 OF REACTION hydromorphone [From Dilaudid] AdvReac Other Verified 03/29/23 01:57 Family History (Reviewed 11/05/22 @ 14:52 by Becky Brian QUALITY ASSURANCE SUPERVISOR CHASSIS, QUALITY ASSURANCE SUPERVISOR CHASSIS-C) Father Myocardial infarction Surgical History History of ERCP Hx of cholecystectomy S/P appendectomy Social History (Reviewed 11/05/22 @ 14:52 by Becky Brian QUALITY ASSURANCE SUPERVISOR CHASSIS, QUALITY ASSURANCE SUPERVISOR CHASSIS-C) Smoking Status: Former smoker ROS ROS ED Constitutional Constitutional ED: Denies chills or fever(s) ENT ENT ED: Denies sore throat Cardiovascular Cardiovascular: Denies chest pain Respiratory/Chest Respiratory/Chest: Denies cough or dyspnea Gastrointestinal Gastrointestinal: Reports abdominal pain; Denies diarrhea, nausea or vomiting Genitourinary Genitourinary ED: Reports other Details: Positive retention ; Denies dysuria Musculoskeletal Musculoskeletal: Denies back pain or myalgias Integumentary Denies rash Neurologic Neurologic: Denies headache(s) Hematologic/Lymphatic Hematologic/Lymphatic: Denies easy bleeding or easy bruising EXAM Physical Exam Const Vital Signs: 03/29/23 01:50 Temperature 98.7 F Temperature Source Temporal Pulse Rate 76 Respiratory Rate 18 Blood Pressure 115/96 H Blood Pressure Mean 102 Pulse Ox 98 Oxygen Delivery Method Room Air Positive well nourished and well developed General Appearance ED: well developed Eyes PERRL and EOMs intact bilaterally General Eye ED: Negative for scleral icterus Neck supple Resp normal respiratory effort and clear to auscultation bilaterally Cardio regular rate and regular rhythm Rate: other Other Details: Radial pulses are plus 2 out of 4 bilaterally are equal and symmetric GI GI Narrative: There is organomegaly and slight distention noted in the lower mid abdomen consistent with a distended bladder. There is pain on palpation at the site. The remainder of the abdominal exam is soft and nonsurgical. No voluntary guarding or pulsatile mass or fluid wave Auscultation: normoactive bowel sounds Palpation: soft Narrative: Normal circumcised male without blood or discharge from the urethral meatus. Notesticular swelling or masses. No soft tissue changes to suggest Sheryl's gangrene. Back/Spine no CVA tenderness Extremity normal to inspection Neuro oriented x3 and CN's II-XII intact bilaterally Sensorium / Orientation: alert Psych mental status grossly normal Skin no rashes or lesions noted General Skin Exam: Negative for jaundice MDM MDM MDM Narrative Medical decision making narrative: Patient presented to the ER with stable vitals and reported approximately 12 hours of little to no urination. On physical exam he does have distention in the lower mid abdomen consistent with a distended bladder. Differential diagnosis is urinary retention versus UTI versus pyelonephritis versus kidney stone versus pancreatitis. Based on the patient's history and exam acute urinary retention from anesthesia is the most likely diagnosis. As symptoms only and present for 12 hours concern for acute kidney injury is low. ThereforeI do not feel need for imaging or laboratory study. Patient had a Dickey catheter placed and it drained approximately 600 mL of urine and on reevaluation patient's distention/organomegaly is resolved. Therefore at this time the catheter to be kept in place to ensure there is no return of urinary tension andhe is otherwise safe to discharge and follow-up with urology on an outpatient basis History & Record Review Discussion w/independent historian: Patient Discharge Plan Triage Chief Complaint: Abd Pain ED Provider: Yvon Fox Dx/Rx/DC Orders Clinical Impression: Acute urinary retention, Hypertension, Hx of pancreatitis Instructions: ED Dickey Catheter, Care, ED Urinary Retention, Male Prescriptions: No Action omeprazole 40 mg capsule,delayed release(DR/EC) 40 mg PO DAILY Label Comments: TAKE 1 CAPSULE Oral EVERY Day Creon 12,000-38,000 -60,000 unit capsule,delayed release(DR/EC) 3 cap PO TIDCM Label Comments: TAKE 6 CAPSULES BY MOUTH 4 TIMES A DAY WITH MEALS lisinopril 20 mg tablet 20 mg PO DAILY 30 Days Qty: 30 0RF cholecalciferol (vitamin D3) [Vitamin D3] 50 mcg (2,000 unit) Capsule 50 mcg PO DAILY Primary Care Provider: Bobby Fountain Referrals: Karan Velarde MD [Med Staff - Active Staff] - Bobby Fountain DO [Primary Care Provider] - Activity Restrictions/Additional Instructions: Please follow-up with urology for repeat evaluation of your urinary retention and return to the ER should you have any further concerns Disposition Disposition: Home, Self Care What to do if you have Problems For any increased pain, shortness of breath, bleeding, nausea or vomiting, chestpain, or any unexpected problems, contact your Primary Care Provider. Call [facility] ([phone]) or report to the closest Emergency Room. Call 911 if necessary. 03/29/23316 <Electronically signed by Yvon Fox DO> Cosigner Signature (if applicable): CC: Dr. Bobby Fountain DO ~ Signed [facility] Work Phone: Evaluation + Plan note Future Appointments Appointment Date:01/17/2022 02:00:00 PM Scheduled Provider:ROSIBEL ALBERTO MD Location:[facility] Appointment Type:PC OV [facility] Evaluation + Plan note Future Appointments Appointment Date:01/17/2022 02:00:00 PM Scheduled Provider:ROSIBEL ALBERTO MD Location:[facility] Appointment Type:PC OV Future Scheduled Tests Radiology* MRI MRCP 11/26/21 [facility] Evaluation + Plan note Future Appointments Appointment Date:02/10/2023 10:00:00 AM Scheduled Provider:BOBBY FOUNTAIN DO Location:[facility] Appointment Type:PC Wellness Annual Future Scheduled Tests [...] Metabolic Panel 07/15/22 Radiology* MRI MRCP 11/26/21 [facility] Evaluation + Plan note Future Appointments Appointment Date:11/20/2022 03:15:00 PM Scheduled Provider:GERARDO SIDHU JR, MD Location:[facility] Appointment Type:GS OV Follow Up Appointment Date:11/27/2022 03:00:00 PM Scheduled Provider:BOBBY FOUNTAIN DO Location:[facility] Appointment Type:PC OV Appointment Date:02/10/2023 10:00:00 AM Scheduled Provider:BOBBY FOUNTAIN DO Location:[facility] Appointment Type:PC Wellness Annual Future Scheduled [...] Metabolic Panel 07/15/22 Radiology* MRI MRCP 11/26/21 [facility] Evaluation + Plan note Future Appointments Appointment Date:08/11/2023 02:00:00 PM Scheduled Provider:BOBBY FOUNTAIN DO Location:[facility] Appointment Type:PC OV Future Scheduled Tests Laboratory* Albumin/Creatinine Ratio, Random Urine 06/09/23 [facility] Evaluation + Plan note Future Appointments Appointment Date:03/08/2024 09:00:00 AM Scheduled Provider:BOBBY FOUNTAIN DO Location:[facility] Appointment Type:PC OV Diagnostic Tests Pending * PSA Total+% Free 03/05/24 [facility] Evaluation + Plan note Future Appointments Appointment Date:07/02/2024 09:30:00 AM Scheduled Provider:BOBBY FOUNTAIN DO Location:[facility] Appointment Type:PC Wellness Annual Future Scheduled Tests Radiology* CT Coronary Calcium Score w/o Contrast 06/09/24 [facility] Evaluation + Plan note Future Appointments Appointment Date:08/31/2024 10:00:00 AM Scheduled Provider:BOBBY FOUNTAIN DO Location:[facility] Appointment Type:PC Wellness Annual Diagnostic Tests Pending * PSA Total+% Free 08/30/24 Future Scheduled Tests Radiology* CT Coronary Calcium Score w/o Contrast 06/09/24 [facility] Evaluation + Plan note Future Appointments Appointment Date:10/21/2024 09:30:00 AM Scheduled Provider: Location:[facility] Appointment Type:CT Coronary Calcium Scoring w/o Contrast Appointment Date:11/29/2024 11:00:00 AM Scheduled Provider:BOBBY FOUNTAIN DO Location:[facility] Appointment Type:PC OV Future Scheduled Tests Laboratory* PSA Total+% Free 08/31/24 * Lipid Profile 08/31/24 Radiology* CT Coronary Calcium Score w/o Contrast 06/09/24 * CT Coronary Calcium Score w/o Contrast 10/21/24 [facility] Evaluation + Plan note Future Appointments Appointment Date:11/29/2024 11:00:00 AM Scheduled Provider:BOBBY FOUNTAIN DO Location:[facility] Appointment Type:PC OV Diagnostic Tests Pending * Lipid Profile 11/25/24 * PSA Total+% Free 11/25/24 Future Scheduled Tests Radiology* CT Coronary Calcium Score w/o Contrast 06/09/24 * CT Coronary Calcium Score w/o Contrast 10/21/24 [facility] Evaluation + Plan note Future Appointments Appointment Date:09/13/2025 02:00:00 PM Scheduled Provider:BOBBY FOUNTAIN DO Location:[facility] Appointment Type:PC Wellness Annual Diagnostic Tests Pending * Lipoprotein (a) 05/24/25 Future Scheduled Tests Radiology* CT Coronary Calcium Score w/o Contrast 02/14/25 * CT Coronary Calcium Score w/o Contrast 10/21/24 [facility] Evaluation note* Diagnosis Onset Date Resolution Status Chest pain resolved Dyspnea resolved Dyspnea on exertion resolved [facility] Work Phone: Evaluation note* Diagnosis Onset Date Resolution Status Hx of pancreatitis acute [facility] Work Phone: Evaluation note* Diagnosis Onset Date Resolution Status Hypertension chronic Pancreatitis chronic [facility] Work Phone: evaluation noteNo assessment information available [facility] Work Phone: evaluation note* Diagnosis Onset Date Resolution Status Tubular adenoma of colon acu te Hx of pancreatitis chronic [facility] Work Phone: Evaluation note* Diagnosis Onset Date Resolution Status Hx of pancreatitis chronic Pancreatitis chronic Tubular adenoma of colon chr onic [facility] Work Phone: Evaluation note* Diagnosis Foreign body of right eye, initial encounter- [facility] Blepharitis of upper and lower eyelids of both eyes, unspecified type- Primary Hordeolum externum, unspecified laterality [facility] Diagnosis Onset Date Resolution Status Admit Date Hx of pancreatitis chronic Septem 2024 9:56am Pancreatitis chronic July 192024 9:56am Tubular adenoma of colon chronic July 19, 2025 9:56am Abdominal pain noneactive July 19, 2025 9:56am [facility] Work Phone: History and physical note Author Lucio Friend [facility] March 28, 2023 6:36am Note Date/Time March 28, 2023 6:36a m [facility] Medical Records Department [address] [place] [address] History & Physical Exam 06/02/23 0635 MR#: [id number] Acct: [id number] Name: CHLOE CHENEY Rep #:[id number] : 1960 62 From: Lucio Lane DO PCP: Dr. Bobby Fountain, DO Status[place] Location: [place] [address] History and Physical Date of Admission: 03/28/23 CHLOE CHENEY, is a 61 M who presents to the office today for f/u recurrent acute on chronic pancreatitis. It is 8 months since his last visit. No abdominalpain since 06/2022; he was seen twice in the ED that month. He continues to take Creon 3 pills with meals/snacks. No alcohol or cigarettes since 02/2019 when he first had pancreatitis. He previously was not interested in surgery eg partial pancreatectomy vs whipple. Dr Lane considered referral for second opinion. Currently following CA 19-9. recommended follow with CT pancreas protocol. Hehas no GI complaints today. Denies nausea, vomiting, dysphagia, abd pain, diarrhea, constipation, melena, hematochezia. He has never had a colonoscopy. Reports a negative Cologuard a few yrs ago. Takes omeprazole. 05/31/22 lipase 2408, 07/04/22 lipase 1493, 07/09/22 lipase 716 05/31/22 amylase 268 05/31/22 CA 19-9 9 Chloe established with this clinic through hospitalization at [facility]. He presented to [facility] ED 12.17.21 with complaints of easy fatigue with normal activityand SOB. It was noted that his pancreatic enzymes were cyclically elevating withprevious hospitalization for pancreatitis and he was hospitalized for monitoring. Gastroenterology was consulted 12.18.21. He has a history of at least20 episodes of recurrent pancreatitis resulting in a pancreatic pseudocyst, pancreatic tail abscess was drained via EUS. There is a common bile duct stent placed for biliary stricture and this is thought to be associated with chronic pancreatitis. He followed with Dr. Cole as outpatient who prescribed him Creon. MRCP performed at [facility] showing possible pancreatic lesion inthe head of the pancreas. ERCP performed 12.20.21. Chloe was discharged 12.21.21 MRCP 12.19.21 finding mildly dilated common hepatic duct and common bile duct. Pancreatic duct dilated in the body and tail up to 6mm. Ill defined mass in headof pancreas with associated dilation of main pancreatic duct. ERCP 12.20.21 finding single mild biliary stricture in lower third of the main bile duct; indeterminate. Entire main bile duct dilated; uncertain significance.Biliary sphincterotomy performed. Biliary tree swept finding sludge. Common bileduct successfully dilated. Cytology was negative for malignant cells. EUS performed 01.24.22 at . EGD without acute/chronic findings. Sonographic findings: CBD dilated measuring 9mm; no stones, sludge or stricture seen. Pancreatic parenchymal abnormalities throughout entire pancreas of hyperechoic strands and foci with lobularity; pancreatic ducted had dilated endosonographic appearance with tortuous appearance and hyperechoic valle in main pancreatic duct; pancreatic duct measures 5mm; round inflammatory mass-likeregion identified in pancreatic head, hypoechoic, heterogenous and lobulated measuring [id number] with biopsy/cytology performed. Pancreatic head biopsy without pathological finding. Cytology without malignant cells. 07/04/22 US/Abdomen Limited IMPRESSION: Dilated intrahepatic biliary ducts. Heterogeneous diffuse enlargement of the pancreas with a 1.7 cm x 1.47 x 1.1 cm cyst in the body of the pancreas.? Limited visualization of the head of the pancreas due to overlying bowel gas.? On a prior MRI of the gallbladder, there was an ill-defined hypointense mass in the head of the pancreas. ? 07/04/22 CT/CT Chest, Abd, Pelvis WO Cont IMPRESSION: Hyperinflation.? Scarring at the lung apices. Status post cholecystectomy with central intrahepatic biliary ductal dilatation.? Dilated pancreatic duct. Diffuse enlargement of the pancreas with the prominence of the head and uncinate process.? Correlation with ultrasound is recommended for further evaluation. ? ROS Const Constitutional: Positive for weight change; No fatigue ENT ENT: No difficulty swallowing Gastro GI: No abdominal pain, belching, bloating, change in bowel habits, change in stool character, coffee ground emesis, constipation, cramping, diarrhea, heartburn, difficulty swallowing, feeling full early, excessive flatus, incontinent of stools, Vomiting blood/hematemesis, Blood in stool, loose stools,Black,tarry stools, nausea/dyspepsia, pain with swallowing, vomiting or other Musc Musculoskeletal: No joint pain Skin Skin: No yellowing of the eye or itchy eyes Psych Psychiatric: No anxiety and No depression Endo Endocrine: Positive for weight change; No fatigue Aller/Imm Allergy/Immunologic: No itchy eyes Toni/Lymp Hematologic/Lymphatic: No easy bleeding or easy bruising Exam Const General: cooperative, comfortable and no acute distress Orientation: alert, awake and oriented x3 HENMT Head: normal to inspection Eyes Sclera: sclerae normal Chest Chest palpation & inspection: normal inspection of the chest Resp Effort & Inspection: normal respiratory effort GI Inspection: normal to inspection Palpation: soft, no hepatosplenomegaly, no masses and nontender Quality Reporting Tobacco Screening (CMS 138) Smoking Status: Former smoker Assessment and Plan Assessment and Plan (1) Pancreatitis: ?Status:?Chronic ?Qualifiers: ?Acute pancreatitis complication:?no infection or necrosis??Chronicity:?acute??Pancreatitis type:?unspecified pancreatitis type? Qualified Code(s):?K85.90 - Acute pancreatitis without necrosis or infection, unspecified ?Plan: 61 yr old male with recurrent acute on chronic pancreatitis When he needs new rx for Creon we can do the highest strength (currently has 12,000 dose) Will update CA 19-9 today Will schedule screening colonoscopy with f/u 2 wks later (2) Hypertension: ?Status:?Chronic ?Plan: Discussed with pt that he has had multiple elevated BP readings going back to 2019 per our records, strongly encouraged him to call his PCP, and to go to ED if his headaches worsen (reports PINON is better since starting treatment for sinusitis 2 days ago) ? ? ? Orders: Orders CA 19-9 Serial Monitor Today K85.90 - Acute pancreatitis without necrosis or infection, unspecified ? Medications: Discontinued hydrocodone-acetaminophen 5-325 mg ?? Discontinued Reason:? Pt no longer taking 1 TAB? PO Q6H 3 days PRN 12 tabs 0RF pain K85.90 - Acute pancreatitis without necrosis or infection, unspecified ? hydrocodone-acetaminophen 5-325 mg ?? Discontinued Reason:? Pt no longer taking 1 TAB? PO Q6H 3 days PRN 10 tabs 0RF pain K85.90 - Acute pancreatitis without necrosis or infection, unspecified ? I have examined the patient and the H&P has been reviewed. There are no clinicalchanges since date of exam. 03/28/23 0636 <Electronically signed by Lucio Lane DO> Cosigner Signature (if applicable): CC: Dr. Bobby Fountain, DO; Lucio Lane DO~ Signed [facility] Work Phone: Hospital course Narrative No data available for this section [facility] Hospital Discharge instructions No data available for this section [facility] Discharge instructions Additional Instructions Please begin taking lisinopril once daily and continue to check your blood pressure once a day so that you have a journal to show your family doctor when you follow-up for evaluation next week. Also please talk your family doctor about a ENT referral based on your nasal polyp and return to the ER should you have any further concerns.[facility] Work Phone: Hospital Discharge instructions Additional Instructions Please follow-up with urology for repeat evaluation of your urinary retention and return to the ER should you have any further concernsW[facility] Work Phone: Progress note No data available for this section [facility] Progress note Author Lucio Lane [facility] Note Date/Time July 19, 2025 10:57am [facility] [address] [place] [address] OFFICE VISIT Date of Service: 07/19/25 MR#: [id number] Acct: [id number] Name: CHLOE CHENEY Rep #: [id number] : 1960 Provider: Lucio Lane DO Age/Sex: 64/M Location: [facility] [place] [facility] Status: Signed Intake Vital Signs 12/22/24 12:29 02/22/25 13:05 Height 5 ft 11 in 5 ft 11 in Intake Visit Reasons: 6 M FU Chief Complaint: f/u 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: No Is patient in pain?: No Allergies amoxicillin (From Augmentin) Allergy (Verified 07/19/25 10:23) Swelling clavulanic acid (From Augmentin) Allergy (Verified 07/19/25 10:23) Swelling Penicillins Allergy (Verified 07/19/25 10:23) PT UNSURE OF REACTION hydromorphone (From Dilaudid) Adverse Reaction (Verified 07/19/25 10:23) Other Medications ?Medication ?Instructions ?Recorded ?Confirmed ?Type cholecalciferol (vitamin D3) 50 50 mcg PO DAILY 07/19/25 History mcg (2,000 unit) capsule (Vitamin D3) [id number] 2 cap PO TIDCM 90 days #540 caps 07/23/24 07/19/25 Rx 36,000-114,000-180,000 unit capsule,delay rel (Creon) ascorbic acid (vitamin C) 500 mg 500 mg PO DAILY 02/2207/19/25 History tablet (C-500) hydroxyzine HCl 10 mg tablet 10 - 20 mg PO TID PRN anx iety 02/22/25 07/19/25 History lisinopril 30 mg tablet 30 mg PO DAILY 02/22/2506/28 History PFSH Medical History Wears glasses High cholesterol Non-smoker Hypertension History of echocardiogram Anxiety Hx of pancreatitis Pancreatitis Surgical History History of ERCP Hx of cholecystectomy S/P appendectomy Family History Father Myocardial infarction Social History household members: none Smoking Status: Former smoker HPI HPI Chief Complaint: f/u Details: CHLOE CHENEY, is a 64 M who presents to the office today for f/u OSH hospitalization ? MRI .05.17 mild pancreatic inflammation, acute interstitial pancreatitis with loss of volume at head, dilation of pancreatic duct and CBD, cannot r/p neoplasm. *[facility] hospitalization 12.17.21-12.21.21 for management of acute on chronic pancreatitis with dyspnea and CP. Reports minimum of 20 pancreatitis episodes resulting in pancreatic pseudocyst. Has required EUS guided drainage of pseudocyst, surgery not pursued. Continue previously prescribed Creon. Established with GI Dr. Cole. ? MCRP 12.19.21 mildly dilated CHD and CBD; pancreatic duct dilated in body/tail 6mm; ill-defined 4.7x2.4x4cm pancreatic head mass with associated MPD dilation ? ERCP 12.20.21 single biliary stricture of lower MBD with dilation;biliary sphincterotomy; CBD dilated. Cytology negative for malignancy OV 01.07.22 doing well since discharge. Recommend EUS. EUS 01.24.22 CBD dilation 9mm without stones, sludge or stricture; pancreatic parenchymal abnormalities, pancreatic duct dilation 5mm; inflammatory mass-like region of pancreatic head [id number] with well defined borders. FNA without pathologic changes. OV 03.07.[address] chest/abd/pel 07.04.22 (ED) mild intrahepatic biliary ductal dilation, CBD, pancreatic duct; pancreas diffusely enlarged with prominence of head and uncinate; borderline retroperitoneal lymphadenopathy. OV 11.05.22 doing well overall. Continue Creon. ? Colonoscopy 01.17.23 diverticulosis; two sessile TA/hyperplastic polyps OV 6 Continue Creon. OV 10.06.23 reports he is ?feeling crappy? has some concern about BP and HR which he is discussing with PCP next week. Also feels the weather is causing himto feel generally worse with the lack of sunshine: reports feeling totally different when it is toña outside. He has also been eating less with smaller meals every 1-2 days because he does not feel as though his food digests. OV 03.05.24 pt reports that he is having no Gi symptoms of concern. reports a formed/soft bm per day. Pt states that he is managing his symptoms with his diet. Pt continues with creon and omeprazole. OV 07.08.24 pt reports that he is feeling well overall and denies GI symptoms of concern at this time. Reports regular bm. Continues with Creon. Pt reports he stopped taking omeprazole a few months ago and has felt better since stopping it. OV 01.10.25 pt reports that he is feeling well overall and denies GI symptoms of concern at this time. Pt reports back pain from arthritis. OV 07/19/25 for chronic pancreatitis and is doing well with that issue as long javi avoids alcohol and eats healthy, small meals. Pt does c/o arthritis in his upper back. Pt is taking his creon with meals as prescribed. Pt does c/o upper abd pain prior to BM but then resolves after. ROS Const Constitutional: Positive for fatigue and weakness; No fever(s) or weight change ENT ENT: No difficulty swallowing Gastro GI: Positive for bloating and excessive flatus; No abdominal pain, belching, change in bowel habits, change in stool character, coffee ground emesis, constipation, cramping, diarrhea, heartburn, difficulty swallowing, feeling full early, incontinent of stools, Vomiting blood/hematemesis, Blood in stool, loose stools, Black,tarry stools, nausea/dyspepsia, pain with swallowing, vomiting or other Musc Musculoskeletal: Positive for joint pain, muscle weakness and Arthritis Skin Skin: No yellowing of the eye or itchy eyes Neuro Neurology: Positive for weakness Psych Psychiatric: Positive for anxiety and No depression Endo Endocrine: Positive for fatigue; No weight change Aller/Imm Allergy/Immunologic: No itchy eyes Toni/Lymp Hematologic/Lymphatic: No easy bleeding or easy bruising Exam Const General: cooperative, healthy appearing and comfortable Orientation: alert, awake and oriented x3 Assessment and Plan Assessment and Plan (1) Pancreatitis: Status: Chronic Qualifiers: Acute pancreatitis complication: no infection or necrosis Chronicity: acute Pancreatitis type: unspecified pancreatitis type Qualified Code(s): K85.90 - Acute pancreatitis without necrosis or infection, unspecified Plan: He has recurrent acute pancreatitis with possible chronic pancreatitis. He has a distal common bile duct biliary stricture that was dilated and brushings were taken during his last ERCP. He had a stricture at the uncinate process that wasnot able to be transversed with a 0.35 mm guidewire. Heunderwent an EUS to look for signs of chronic pancreatitis and to see if the stricture can be treated. This will also help determine if there is any mass that is obstructing the pancreatic duct. His CA 19-[address] scan with pancreatic protocol did show signs of chronic pancreatitis but it did not show any masses. He is doing very well and maintaining a good diet without any alcohol. I feel he is making very good progress and regarding his diagnosis of chronic pancreatitis. Continue pancreatic enzymes as previously ordered. He will need to repeat his CT scan abdomen pelvis as it has been 2 and half years since she has had 1. His weight has been stable. He continues to not drink alcohol. (2) Hx of pancreatitis: Status: Chronic (3) Abdominal pain: Plan: His abdominal pain is all resolved as long as he takes his Creon as previously ordered. (4) Tubular adenoma of colon: Status: Chronic Plan: Repeat colonoscopy in 5 years Orders: Orders ABD Limited w/ Elastography Today K85.90 - Acute pancreatitis without necrosis or infection, unspecified Coding Level of Care Code Off vis,est,level 4 Diagnoses Acute pancreatitis without infection or necrosis, unspecified pancreatitis type K85.90 Acute pancreatitis complication: no infection or necrosis Chronicity: acute Pancreatitis type: unspecified pancreatitis type Hx of pancreatitis Z87.19 Abdominal pain R10.9 Tubular adenoma of colon D12.6 07/19/25 1756 <Electronically signed by Lucio muhammad DO> Date _ Lucio Salgado Signature: Date (if applicable) CC: ~ [facility] Work Phone: Reason for referral (narrative)No reason for referral information availableWDayton [facility] Work Phone: Discharge Instructions * Discharge Instr - Lab* Jamila Greco RN - 07/14/2019 11:44 AM EDT Your physician has ordered skilled home care services for you. Your home care will be provided by: [facility] [phone] * Additional Instructions* Pacheco Shukla APRN - ESAU - 07/14/2019 Your instructions: Recommended diet: regular [...] mild sore throat. You may use an uxkx-iex-utpsact Chloraseptic spray, garglewith warm salt water, or [...] documented in this encounter* Discharge Instr - Activity* Yaw Shanks MD - 04/01/2020 1:41 PM EDT Up [...] at most local grocery stores, pharmacies, and chain super-stores. ? If you have any questions about your diet or nutrition, call the hospital and ask for the dietitian. Diet general. * Discharge Instr - TERRENCE* Yaw Shanks MD - 04/01/2020 1:41 PM EDT Continuity of Care Form Patient Name: Chloe Cheney : 1960 Admit date: 03/31/2020 Discharge date: Code Status Order: Full Code Advance Directives: Admitting Physician: Michael Steele MD PCP: ROSIBEL ALBERTO MD Discharging Nurse: Discharging Hospital Unit/Room#: 5109/108423 Discharging Unit Phone Number: Emergency Contact: Extended Emergency Contact Information Primary Emergency Contact: PACHECO RIOS Relation: Child Preferred language: Lao Project Controller needed? No Past Surgical History: Past Surgical [...] (73.4 kg) Mental Status: {IP PT MENTAL STATUS:} IV Access: { TERRENCE IV ACCESS:723526815} Nursing Mobility/ADLs: Walking {CHP DME ADLs:113201964} Transfer {CHP DME ADLs:736318232} Bathing {CHP DME ADLs:759448706} Dressing {CHP DME ADLs:324649610} Toileting {CHP DME ADLs:768484129} Feeding {P DME ADLs:034913624} Assistant Inventory Manager {P DME ADLs:977872618} Med Delivery { TERRENCE MED Delivery:630614489} Wound Care Documentation and Therapy: Elimination: Continence: Bowel: {YES / NO:} Bladder: {YES / NO:} Urinary Catheter: {Urinary Catheter:398667612} Colostomy/Ileostomy/Ileal Conduit: {YES / NO:} Date of Last BM: Intake/Output Summary (Last 24 hours) at 04/01/2020 1341 Last data filed at 04/01/2020 0528 Gross per 24 hour Intake 3250 ml Output Net 3250 ml I/O last 3 completed shifts: In: 3250 [P.O.:800; I.V.:2450] Out: - Safety Concerns: { TERRENCE Safety Concerns:739927388} Impairments/Disabilities: { TERRENCE Impairments/Disabilities:335144242} Nutrition Therapy: Current Nutrition Therapy: { TERRENCE Diet List:073509149} Routes of Feeding: {[facility] DME Other Feedings:457272395} Liquids: {Home Appliance Tech liquid thickness:99656} Daily Fluid Restriction: {CHP DME Yes amt example:792716036} Last Modified Barium Swallow with Video (Video Swallowing Test): {Done Not Done Date:} Treatments at the Time of Hospital Discharge: Respiratory Treatments: Oxygen Therapy: {Therapy; copd oxygen:94545} Ventilator: { CC Vent List:906494137} Rehab Therapies: {THERAPEUTIC INTERVENTION:7620676340} Weight Bearing Status/Restrictions: {[facility] Weight Bearin} Other Medical Equipment (for information only, NOT a DME order): {EQUIPMENT:775382974} Other Treatments: Patient's personal belongings (please select all that are sent with patient): {[facility] DME Belongings:667250553} RN SIGNATURE: {Esignature:976649087} CASE MANAGEMENT/SOCIAL WORK SECTION Inpatient Status Date: Readmission Risk Assessment Score: Readmission Risk Risk of Unplanned Readmission: 8 Discharging to Facility/ Agency Name: Address: Phone: Fax: Dialysis Facility (if applicable) Name: Address: Dialysis Schedule: Phone: Fax: Book Cutter/Vacuum Tank Tender signature: {Esignature:210390356} PHYSICIAN SECTION Prognosis: {Prognosis:5296914475} Condition at Discharge: { Patient Condition:843784749} Rehab Potential (if transferring to Rehab): {Prognosis:0799021027} Recommended Labs or Other Treatments After Discharge: Physician Certification: I certify the above information and transfer of Chloe Cheney is necessary for the continuing treatment of the diagnosis listed and that he requires {Admit to Appropriate Level of Care:88018} for {GREATER/LESS:969798761} 30 days. Update Admission H&P: {CHP DME Changes in HandP:264584329} PHYSICIAN SIGNATURE: {Esignature:072517551} * Attachments The following attachments cannot be sent through Care Everywhere. 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 pt states he has hx of pancreatitis with recent stent placement in february. pt states he was doing fine until this. Received ativan, morphine, and k+ at [facility]. pt a&ox3, NAD noted. denies current pain [...] 05/31/19, s/p ERCP w/stent exchange by Dr. Roberto 07/12/19 - OP followup with Dr. Roberto - OP follow-up and referral to for [...] Rosenberg MD - 07/14/2019 7:42 AM EDT [facility] - Infectious Diseases Resident Progress Note Subjective: Following for Gram negative etta septicemia. This morning on evaluation, Mr. Cheney is awake and alert, sitting up in [...] Mccarthy MD - 07/14/2019 12:54 PM EDT [facility] Infectious Disease Attending Note Patient seen and [...] on 07/14/19 at 12:53 PM. 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 and states he drinks Ensure once daily [...] High Nutrient Needs: Estimated Daily Total Kcal: 5117-9300 Estimated Daily Protein (g): 84-91 Estimated Daily [...] , -26# (14.4% BW) / 5 months [place] Body Wt: 172 lb (78 kg), % [place] Body 86% BMI Classification: BMI 18.5 - [...] Contact Number: pager [phone] * Pacheco Shukla, DISTRIBUTION TECH - RETIREMENT SALES CONSULTANT - 07/13/2019 11:49 AM EDT Hospitalist Progress Note 07/13/2019 11:49 AM PT NAME: Chloe Cheney : 1960(58 y.o.) ROOM #: [id number] ADMIT DATE: 07/10/2019 PCP: ROSIBEL ALBERTO MD Active Hospital Problems Diagnosis Date Noted History of biliary stent insertion [Z98.890] Abnormal MRI of abdomen [R93.5] Enterobacter sepsis (HCC) [A41.59] 07/11/2019 Pancreatitis, recurrent [K85.90] 07/10/2019 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 pt states he has hx of pancreatitis with recent stent placement in february. pt states he was doing fine until this. Received ativan, morphine, and k+ at [facility]. pt a&ox3, NAD noted. denies current pain [...] 05/31/19, s/p ERCP w/stent exchange by Dr. Roberto yesterday - OP followup with Dr. Roberto - regarding necrotizing pancreatitis vs pancreatic mass, [...] Rosenberg MD - 07/13/2019 10:06 AM EDT [facility] - Infectious Diseases Resident Progress Note Subjective: Following for Gram negative etta septicemia. This morning on evaluation, Mr. Cheney is awake and alert, sitting up in bed in no acute distress. He states that he feels improved compared to yesterday. Yesterday he underwent repeat ERCP with stent exchange per Dr. Roberto, tolerated well. MRCP collected yesterday with inflammation [...] Mccarthy MD - 07/13/2019 12:58 PM EDT [facility] Infectious Disease Attending Note Patient seen and [...] BC positive citrobacter species , repeat BC 07-12 neg x 24 hours Impression: 1. Citrobacter [...] plan of care and d/c planning. * Tosin Maria MD - 07/13/2019 8:14 AM EDT Department of Internal Medicine Gastroenterology Attending Progress Note SUBJECTIVE: Pt s/p ERCP w/ stent exchange by Dr. Roberto yesterday. Pt states he is feeling much improved this AM. Currently brushing his teeth as I enter the room. Denies nausea or vomiting. Denies abdominal pain, fevers or chills. States he dinner yesterday evening without complaint and tolerated cream of wheat for breakfast. Is wondering when he can be discharged. ERCP 07/12/19 Dr. Roberto - major papilla appeared to be prominent, [...] ERCP w plastic stent change by Dr. Roberto 07/12/19 5. Hx of necrotizing pancreatitis 6. Abnormal MRCP 05/28/19 - cavitating pancreatic mass which may represent neoplasm of necrotizing pancreatitis - LFTs downtrending, pt clinically improved s/p biliary stent exchange yesterday. - Will need close follow-up with Dr. Roberto regarding removal of stent vs. Stent exchange. Upon discussion with Dr. Roberto stricture in CBD appeared benign but brushings were taken. Pt needs to follow-up with Dr. Roberto for results of brushings and at that time decision will be made regarding stent removal. - regarding necrotizing pancreatitis vs. Pancreatic mass pt will need close follow-up and referral to for EUS as outpatient. Referral will be placed in the chart by Dr. Maria. - continue antibiotics given bacteremia, further management [...] patient and discussed the management with thephysician placement assistant. 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 pt states he has hx of pancreatitis with recent stent placement in february. pt states he was doing fine until this. Received ativan, morphine, and k+ at [facility]. pt a&ox3, NAD noted. denies current pain [...] 07/12/2019 Medications: sodium chloride 75 mL/hr at 07/11/192106 meropenem 2 g Intravenous Q8H sodium chloride [...] was supposed to be removed by Dr Roberto 07/19/19 - Sepsis d/t Citrobacter bacteremia - ID on board, continue meropenem and gentamycin pending blood C+S - Hx ETOH abuse - Chronic anemia, stable Advance Directive: Full Code Pacheco Shukla CNP * Tosin Maria MD - 07/12/2019 9:25 AM EDT Department of Internal Medicine Gastroenterology Attending Progress Note SUBJECTIVE: 58 y/o M patient w hx of pancreatitis, pseudocyst of pancreas. GI following for ascending cholangitis and infected biliary stent. Pt is a patient of Dr. Roberto. Pt states he is doing well this AM. No acute events overnight. Is NPO for MRCP this morning at 7AM.Denies abdominal pain, nausea or vomiting. Is passing flatus, last BM yesterday. Afebrile overnight, states rigors and shoulder cramping has improved. ERCP on 05/31/[address] Amy Roberto Impression: - A single localized biliary stricture [...] Time: 07/12/2019 1:33 pm Signed by: MD MARAH, KAREEM Transcribed Date and Time: 07/12/2019 12:37 ASSESSMENT AND PLAN 1. Cholangitis d/t infected biliary stent 2. Transamintitis, elevated lipase 3. GNR Septicemia 4. S/p ERCP w plastic stent placemen by Dr. Roberto 05/31/19 5. Hx of necrotizing pancreatitis 6. Abnormal MRCP 05/28/19 - cavitating pancreatic mass which may represent neoplasm of necrotizing pancreatitis - trend LFTs/INR - spoke with radiologist regarding MRCP results who states changes are likely from chronic pancreatitis with inflammation in the pancreatic head and large pseudocyst compressing the biliary duct, CBDdilated to 2cm. Stent in place. - Spoke with Dr. Roberto regarding patient case who recommend ERCP with [...] patient and discussed the management with thephysician placement assistant. I reviewed and agree with the findings and plan as documented in her note Above note has been edited to reflect my additional findings and recommendations. * Helen Petersen - 07/12/2019 8:55 AM EDT .Nutrition rescreen completed. Patient referred to the Dietitian. .JONATHAN Wellington * Paulie Rosenberg MD - 07/12/2019 8:20 AM EDT [facility] - Infectious Diseases Attending Progress Note Subjective: Following for Gram negative etta septicemia. This morning on evaluation, Mr. Cheney is awake and alert, sitting up comfortably [...] Mccarthy MD - 07/12/2019 11:16 AM EDT [facility] Infectious Disease Attending Note Patient seen and [...] Surgery 1 Daily Progress Note PATIENT NAME: Chloe Cheney : 1960 ATTENDING PHYSICIAN: Dandy Wayne MD ADMIT DATE: 07/10/2019 TODAY'S DATE: [...] 38.5* PLT 206 138* 149 Recent Labs 07/10/19113807/11/19 0630 07/12/19 0250 NA 140 140 138 K 4.9 3.4* 3.6 CL 107 112* 110* CO2 21* 19* 18* BUN 15 13 10 CREATININE 0.77 0.71 0.68 GLUCOSE 104* 93 91 Recent Labs 07/10/19 11307/11/19 0630 07/12/19 0250 AST 138* 78* 68* [...] Surgery 1 Daily Progress Note PATIENT NAME: Chloe Cheney : 1960 ATTENDING PHYSICIAN: Dandy Wayne MD ADMIT DATE: 07/10/2019 TODAY'S DATE: [...] No intake/output data recorded. Data Recent Labs 07/10/199 07/11/19 0631 WBC 21.8* 8.8 HGB 14.4 13.4 HCT 43.1 39.0* PLT 206 138* Recent Labs 07/10/199 07/11/19 0630 NA 140 140 K 4.9 3.4* CL 107 112* CO2 21* 19* BUN 15 13 CREATININE 0.77 0.71 GLUCOSE 104* 93 Recent Labs 07/10/199 07/11/19 0630 AST 138* 78* ALT 209* [...] AM EST Pt ready for tx to [facility]; report called with pt tx to [facility] 27 documented in this encounter* Heather Canales [...] Abdomen w/ + w/o Contrast Ordering Physician [id number] SUSAN BLAIR Accession Number [id number] CPT4 Codes 32662 () Reason For Exam mass like soft [...] in preoperative area. All present in the [facility] and completed prior surgery date as per protocol. * Joanne Hurley RN - 09/14/2019 7:[address] Morataya H&P not in [facility]. He states it is. Checked again. Not [...] biliary pancreatitis with uninfected necrosis Advance Directives Documents on File Type Date Recorded Patient Cytogenetic Technician Expl anation Advance Directives and Living Will Power of Right Of Way Supervisor Latest Code Status on File Code Status [...] Inactivated Comments Full Code 09/14/2019 6:13 AM Advance Directive Response Recorded Date/ Time Living Will No February 13, 2022 8:41pm Power of Right Of Way Supervisor No February 13 8:41pm Advance Directive Response Recorded Date/ Time Living Will No July 04 022 10:05am Power of Right Of Way Supervisor No July 04, 2022 10:05am Advance Directive Response Recorded Date/ Time Living Will No November 05 9:40pm Power of Right Of Way Supervisor No November 05, 2022 9:40pm Advance Directive Response Recorded Date/ Time Living Will No March 26, 2023 9 :39am Power of Right Of Way Supervisor No March 26, 2023 9:39am Advance Directive Response Recorded Date/ Time Living Will No March 29, 2023 1 :57am Power of Right Of Way Supervisor No March 29, 2023 1:57am Advance Directive Response Recorded Date/ Time Living Will No July 03, 023 10:13pm Power of Right Of Way Supervisor No July 03, 2023 10:13pm Advance Directive Response Recorded Date/ Time Living Will No August 09 5:23pm Power of Right Of Way Supervisor No August 09, 2023 5:23pm Advance Directive Response Recorded Date/ Time Living Will No August 09 4:23pm Power of Right Of Way Supervisor No August 09, 2023 4:23pm Advance Directive Response Recorded Date/ Time Living Will No June 01, 2024 6:54pm Do you have a Healthcare Power of Right Of Way Supervisor? No June 01, 2024 6:54pm Living Will No November 20 5:59pm Do you have a Healthcare Power of Right Of Way Supervisor? No November 20, 2024 5:59pm Living Will No December 22, 025 3:24pm Do you have a Healthcare Power of Right Of Way Supervisor? No December 22, 2024 3:24pm Do you have a Healthcare Power of Right Of Way Supervisor? No February 22, 2025 2:06pm Summary Purpose Family History Relationship Condition Age at Onset Recorded Date/T jacqui father Myocardial infarction Unknown Chief Complaint and Reason for Visit Chief Complaint ACUTE PANCREATITIS ACUTE PANCREATITIS ACUTE PANCREATITIS ACUTE PANCREATITIS ACUTE PANCREATITIS ACUTE PANCREATITIS ACUTE PANCREATITIS HOSP FU ABD PAIN Reason for Visit Chest pain Dyspnea Dyspnea on exertion Chief Complaint ABD PAIN FU ABD PAIN Reason for Visit Hx of pancreatitis Chief Complaint ABD PAIN FU ABD PAIN FU E ORDER Reason for Visit Hx of pancreatitis Chief Complaint FU ABD PAIN FU E ORDER ABD Reason for Visit Hx of pancreatitis Chief Complaint 3 MO FU Pancreatitis HYPERTENSIVE Reason for Visit Hypertension Pancreatitis Chief Complaint abd pain, unable to void Chief Complaint abd pain, unable to void CLOGGED DICKEY Chief Complaint abd pain, unable to void CLOGGED DICKEY 2 WK FU GENERAL ILLNESS Reason for Visit Tubular adenoma of c olon Hx of pancreatitis Chief Complaint GENERAL ILLNESS chest pain Chief Complaint chest pain 6 MO FU Acute pancreatitis without necrosis or infection, Reason for Visit Hx of pancreatitis Pancreatitis Tubular adenoma of colon Chief Complaint Admit Date SOB November 20, 2024 4 :49pm WEAKNESS December 22, 2024 12:27pm 6 M FU January 10, 2025 8:5 3am general illness February 22, 2025 1:0 1pm Reason for Visit Admit Date Hx of pancreatitis January 10, 2025 8:5 3am Pancreatitis January 10, 2025 8:5 3am Tubular adenoma of colon January 10 8:53am Abdominal pain January 10, 2025 8:5 3am Chief Complaint Admit Date 6 M FU July 19, 2025 9:56am Reason for Visit Admit Date Hx of pancreatitis July 19, 2025 9:56am Pancreatitis July 19, 2025 9:56am Tubular adenoma of colon July 19, 2025 9:56am Abdominal pain July 19, 2025 9:56am Chief Complaint Follow-up, to discuss surgery for recurrent acute on chronic pancreatitis. Additional Source Comments Reason for Visit (unrecogniz ed section and content) Reason Comments Mass sent from [facility] for pancreatic mass. pt states he has hx of pancreatitis with recent stent placement in february. pt states he was doing fine until this. Received ativan, morphine, and k+ at [facility]. pt a&ox3, NAD noted. denies current pain Other Reason Comments Eye Complaint Reason Comments Eye Problem Feels like he has a sty in both eyes x 1.5 weeks (unrecognized sect ion and content) No Status Records FoundNo Status Records FoundNo Status Records FoundNo Status Records FoundNo Status Records FoundNo Status Records FoundNo Status Records FoundNo Status Records FoundNo Status Records FoundNo Status Records Found INFORMATION SOURCE (unrecogn ized section and content) DATE CREATED AUTHOR 06/14/2020 [facility] DATE CREATED AUTHOR AUTHOR'S ORGANIZ ATION 01/02/2021 [facility] DATE CREATED AUTHOR AUTHOR'S ORGANIZ ATION 03/01/2022 [facility] DATE CREATED AUTHOR AUTHOR'S ORGANIZ ATION 03/20/2022 [facility] DATE CREATED AUTHOR AUTHOR'S ORGANIZ ATION 06/24/2022 [employer] DATE CREATED AUTHOR AUTHOR'S ORGANIZ ATION 06/30/[address] [facility] ([place]) DATE CREATED AUTHOR AUTHOR'S ORGANIZ ATION 09/24/2024 [facility] DATE CREATED AUTHOR AUTHOR'S ORGANIZ ATION 02/08/2025 [facility] DATE CREATED AUTHOR AUTHOR'S ORGANIZ ATION 05/26/2025 [facility] DATE CREATED AUTHOR AUTHOR'S ORGANIZ ATION 07/20/2025 [facility] Goals (unrecognized section and content) Goals may be documented in a n alternate section Care Team (unrecognized sect ion and content) Care Team Personnel Name: BOBBY FOUNTAIN DO Position: P4 Physician - Primary Care Member Role: Primary Care Physician Address: Address: [address] [place] [address] Phys[place], [place] [id number] [place] [address] Care Team Related Persons Name: EDILBERTO CHENEY Address: Home [address] [place], [place] [id number] Address: Temporary [address] [place], [place] [id number] Name: SAURAV DRUMMOND Care Team Personnel Name: BOBBY FOUNTAIN DO Position: P4 Physician - Primary Care Member Role: Primary Care Physician Address: Address: [address] [facility] [place], [place] [id number] Care Team Related Persons Name: EDILBERTO CHENEY Address: Home [address] [place], [place] [id number] Address: Temporary [address] [place], [place] [id number] Name: SAURAV DRUMMOND Care Teams (unrecognized sec tion and content) Team Status: Active Member Role Status Dates Dr. Rosibel Alberto MD Family Provider Active Dr. Bobby Fountain DO Primary Care Provider Active Team Status: Inactive Member Role Status Dates Dr. Rosibel Alberto MD Referring Provider Active Becky Brian QUALITY ASSURANCE SUPERVISOR CHASSIS, QUALITY ASSURANCE SUPERVISOR CHASSIS-C Attending Provider Active Dr. Bobby Fountain DO Primary Care Provider Active Team Status: Inactive Member Role Status Dates Dr. Bobby Fountain DO Primary Care Provider Active Becky Brian QUALITY ASSURANCE SUPERVISOR CHASSIS, QUALITY ASSURANCE SUPERVISOR CHASSIS-C Attending Provider, Referrin g Provider Active Team Status: Inactive Member Role Status Dates Dr. Bobby Fountain DO Primary Care Provider Active Dr. Yvon Fox DO Emergency Provider Active Team Status: Active Member Role Status Dates Dr. Bobby Fountain DO Primary Care Provider, Referrin g Provider Active Dr. Lucio Lane DO Attending Provider, Other Prov ider Active Team Status: Inactive Member Role Status Dates Dr. Bobby Fountain DO Primary Care Provider, Referrin g Provider Active Dr. Lucio Lane DO Attending Provider Active Team Status: Inactive Member Role Status Dates Dr. Bobby Fountain DO Primary Care Provider Active Ed Physician Provider Emergency Provider Active Team Status: Inactive Member Role Status Dates Dr. Bobby Fountain DO Primary Care Provider, Referrin g Provider Active Becky Brian QUALITY ASSURANCE SUPERVISOR CHASSIS, QUALITY ASSURANCE SUPERVISOR CHASSIS-C Attending Provider Active Team Status: Inactive Member Role Status Dates Dr. Bobby Fountain DO Primary Care Provider Active Dr. Yvon Fox DO Attending Provider, Emergency Pr ovider Active Team Status: Inactive Member Role Status Dates Dr. Bobby Fountain DO Primary Care Provider Active Ed Physician Provider Attending Provider, Emergency Pr ovider Active Team Status: Inactive Member Role Status Dates Dr. Bobby Fountain DO Primary Care Provider Active Dr. Brock Morocho MD Emergency Provider Active Team Status: Inactive Member Role Status Dates Dr. Bobby Fountain DO Primary Care Provider Active Dr. Brock Morocho MD Attending Provider, Emergency Provider Active Team Status: Inactive Member Role Status Dates Dr. Bobby Fountain DO Primary Care Provider Active Dr. Addy Ovalle DO Emergency Provider Active Team Status: Inactive Member Role Status Dates Dr. Bobby Fountain DO Primary Care Provider Active Dr. Lucio Lane DO Attending Provider, Referring Provider Active Team Status: Inactive Member Role Status Dates Dr. Bobby Fountain DO Primary Care Provider Active Dr. Addy Ovalle DO Attending Provider, Emergency Provider Active Rand Tacker Relationship Specialty Start Date End Date Rosibel Alberto [address] [place] [id number] PCP - General Family Medicine 02/04/19 Rand Tacker Relationship Specialty Start Date End Date Bobby Fountain DO [address] [place] [id number] PCP - General Family Medicine 02/07/25 Team Status: Active Member Role Status Dates Dr. Bobby Fountain DO Primary Care Provider Active Team Status: Inactive Member Role Status Dates Dr. Bobby Fountain DO Primary Care Provider Active Start: November 20, 2024 End: November 20, 2024 Dr. Prince Quintanilla DO Attending Provider Active Start: November 20, 2024 End: November 20, 2024 Dr. Prince Quintanilla DO Emergency Provider Active Start: November 20, 2024 End: November 20, 2024 Team Status: Inactive Member Role Status Dates Dr. Bobby Fountain DO Primary Care Provider Active Start: December 22, 2024 End: December 22, 2024 Dr. Jc Raza MD Attending Provider Active S tart: December 22, 2024 End: December 22, 2024 Dr. Jc Raza MD Emergency Provider Active S tart: December 22, 2024 End: December 22, 2024 Team Status: Inactive Member Role Status Dates Dr. Bobby Fountain DO Primary Care Provider Active Start: January 10, 2025 End: January 10, 2025 Dr. Bobby Fountain DO Referring Provider Active Start: January 10, 2025 End: January 10, [address] DO Attending Provider Active Start: January 10, 2025 End: January 10, 2025 Team Status: Inactive Member Role Status Dates Dr. Bobby Fountain DO Primary Care Provider Active Start: February 22, 2025 End: February 22, 2025 Dr. Prince Quintanilla , DO Emergency Provider Active Start: February 22, 2025 End: February 22, 2025 Team Status: Active Member Role/Relationship Status Dates Dr. Bobby Fountain DO Primary care physician Active Team Status: Inactive Member Role/Relationship Status Dates Dr. Bobby Fountain DO Primary care physician Active Start: July 19, 2025 End: July 19, 2025 Dr. Bobby Fountain DO Referring Provider Active Start: July 19, 2025 End: July 19, [address] , Attending physician Active Start: July 19, 2025 End: July 19, 2025 Source Comments (unrecognize d section and content) In the event this informatio n is protected by the Federal Confidentiality of Alcohol and Drug Abuse Patient Records regulations: The Federal rules restrict any use of the information to criminally investigate or prosecute any alcohol or drug abuse patient.[facility] the event this information is protected by the Federal Confidentiality of Alcohol and Drug Abuse Patient Records regulations: The Federal rules restrict any use of the information to criminally investigate or prosecute any alcohol or drug abuse patient.[facility] FOR RECORDS PERTAINING TO PATIENTS WHO ARE [...] BE BASED ON THE PRIMARY CLINICAL RECORDS. [facility] provides no warranty or guarantee of the accuracy or completeness of information in this document.
[2025-07-30 15:12] LABS: Anion Gap 15 (5-15); BUN 26 mg/dL (4-19); BUN/Creat Ratio 20.8 RATIO (10-20); Calcium,Total 9.5 mg/dL (7.6-11.0); Carbon Dioxide 20.6 mmol/L (21.0-32.0); Chloride 100 mmol/L (98-108); Estimated Creatinine Clearance 63.08 ml/min (50-250); Glucose 107 mg/dL (70-99); Potassium 3.9 mmol/L (3.3-5.1); Troponin T High Sensitivity 9 ng/L (<=22)
[2025-07-30 16:13] VITALS: BP 127/87; PULSE 58; RESP 16; TEMP 36.6; O2SAT 99
== END 2025-07-30 16:14 | disposition home or self-care (01) ==
PROVIDERS: Emergency Provider Emergency Medicine; Visit Provider Emergency Medicine
DX: R55 Syncope and collapse (principal); K86.1 Other chronic pancreatitis; I10 Essential (primary) hypertension; E78.00 Pure hypercholesterolemia, unspecified; Z87.891 Personal history of nicotine dependence; Z79.899 Other long term (current) drug therapy
CPT/HCPCS: 71046; 80048; 84484; 85025; 93005; 99284; A4216

== ENCOUNTER → 2025-08-01 | Outpatient (CLI) | payer MEDICAID, SELFPAY ==
--- NOTE | 2025-08-01 09:57 | US_ITS ---
PROCEDURE: ABD LIMITED W/ ELASTOGRAPHY REASON FOR EXAM: FATTY LIVER DISEASE COMPARISON: July 04, 2022. TECHNIQUE: Procedure Code: [id number] Modality: US Procedure: ABD LIMITED W/ ELASTOGRAPHY Right upper quadrant abdominal ultrasound. [facility] ElastQ Imaging shear wave elastography for non-invasive assessment of liver tissue stiffness. [facility] EPIQ Elite. FINDINGS: LIVER: Size: Unremarkable Length: cm Echotexture: Diffusely echogenic suggesting fatty infiltration Contour: Normal Lesions: None identified Elastography: EQI Med: 7.7 kPa EQI Med Jose: 1.6 m/s IQR/Med: 7.5 %* GALLBLADDER: Surgically absent. COMMON BILE DUCT: Dilated measuring up to 4.9 mm . PANCREAS: Normal Visualized portions of the right kidney are unremarkable. No right upper quadrant ascites. US/ABD Limited w/ Elastography IMPRESSION: Mild hepatic fibrosis. Fatty infiltration of the liver. Status post cholecystectomy. Reference Values: SRU <1.37 m/s (5.7kPa): No to mild fibrosis 1.37 m/s - 2.2 m/s: Moderate to severe fibrosis >2.2 m/s (15kPa): Significant fibrosis / cirrhosis METAVIR Score F2 or higher: 1.34 m/s (5.7kPa) F3 or higher: 1.55 m/s (7.3kPa) F4: 1.80 m/s (10kPa) * If the IQR/Med is >30%, the variance in the measurements is a large and the a ccuracy of the measurement may be in question. Reading Location: [facility]
== END | disposition home or self-care (01) ==
PROVIDERS: Referring Provider Internal Medicine Gastroenterology; Visit Provider Internal Medicine Gastroenterology
DX: K85.90 Acute pancreatitis without necrosis or infection, unspecified (principal)
CPT/HCPCS: 76705; 76981

== ENCOUNTER 2025-09-14 18:06 | Emergency (ER) | payer MEDICAID, SELFPAY ==
[2025-09-14 18:09] VITALS: BP 134/97; PULSE 66; RESP 24; TEMP 36.1; O2SAT 100
[2025-09-14 18:13] VITALS: BMI 22.7
[2025-09-14 18:21] VITALS: O2SAT 100
--- NOTE | 2025-09-14 18:32 | RAD_ITS ---
PROCEDURE: CHEST PA AND LATERAL 09/14/2025 REASON FOR EXAM: CHEST PAIN TECHNIQUE: Procedure Code: RADCXR Modality: DX Procedure: CHEST PA AND LATERAL COMPARISON: 07/30/2025 FINDINGS: No focal consolidation. No pleural effusion or pneumothorax. Cardiac silhouette is within normal limits. No acute fractures. RAD/Chest PA and Lateral IMPRESSION: No focal consolidation. Reading Location: [id number]
[2025-09-14 18:38] LABS: Hematocrit 46.1 % (40-54); Hemoglobin 15.7 g/dL (13.0-16.5); Immature Granulocytes Count 0.010 X10^3/uL (0.0-0.0); Mean Corp Hgb Conc 34.1 g/dL (32-36); Mean Corpuscular Volume 87.5 fL (80-94); Mean Platelet Vol. 10.3 fl (6.2-12.0); NRBC Flagged by Analyzer 0 % (0-5); Platelet Count 238 K/mm3 (150-450); RBC Distribution Width CV 12.5 % (11.6-14.6); RBC Distribution Width SD 40.0 fl (35.1-43.9); Red Blood Count 5.27 M/mm3 (4.6-6.2); White Blood Count 9.1 K/mm3 (4.4-11.0)
[2025-09-14 19:18] LABS: Anion Gap 12 (5-15); BUN 24 mg/dL (4-19); BUN/Creat Ratio 17.8 RATIO (10-20); Calcium,Total 9.3 mg/dL (7.6-11.0); Carbon Dioxide 25.1 mmol/L (21.0-32.0); Chloride 100 mmol/L (98-108); Estimated Creatinine Clearance 58.21 ml/min (50-250); Glucose 115 mg/dL (70-99); Magnesium 2.2 mg/dL (1.5-2.2); Potassium 4.2 mmol/L (3.3-5.1)
[2025-09-14 19:21] LABS: Pro- Brain NATRIURETIC PEPTIDE < 36 pg/mL (<=900); Troponin T High Sensitivity 13 ng/L (<=22)
[2025-09-14 20:01] VITALS: BP 135/93; PULSE 68; O2SAT 99
[2025-09-14] MEDS: 0.9% Normal Saline (1000mL) 1,000 ML 1000 ML IV (20:14)
--- NOTE | 2025-09-14 20:23 | ED.VIS.DYS ---
HPI History of Present Illness Chief Complaint: Shortness of Breath Narrative Narrative: Patient is a 64-year-old male presenting to the emergency department for fatigue and shortness of breath with activity. Patient has a past medical history of tubular adenoma of the colon, hypertension and pancreatitis. Patient reportedly had alcohol abuse history in the past, states he no longer drinks he states the fatigue and shortness of breath with any activity has been going on for the past several weeks to months. He states that tonight he was moving somewhat around when he became short of breath and sat down felt like he did not recover quick enough. He states he is already talked to his primary care doctor who has plans for outpatient labs and imaging. Patient denies fever, chills, chest pain, abdominal pain, nausea, vomiting, diarrhea. Denies any lower extremity edema. Denies any history of DVT or PE. Denies any recent travel, hospitalizations or surgeries. [facility] Medical History Wears glasses High cholesterol Non-smoker Hypertension History of echocardiogram Anxiety Hx of pancreatitis Pancreatitis Home Medications ?Medication ?Instructions ?Recorded ?Last Taken ?Type cholecalciferol (vitamin D3) 50 50 mcg PO DAILY 01/01/23 07/30/25 History mcg (2,000 unit) capsule (Vitamin D3) [id number] 2 cap PO TIDCM 90 days #540 caps 07/23/24 07/30/25 Rx (pork)36,000-114,000-180k unit capsule,del rel (Creon) ascorbic acid (vitamin C) 500 mg 500 mg PO DAILY 02/22/25 07/30/25 History tablet (C-500) hydroxyzine HCl 10 mg tablet 10 - 20 mg PO TID PRN anxiety 02/22/25 02/18/25 History lisinopril 30 mg tablet 30 mg PO DAILY 02/22/25 07/29/25 History Allergy/AdvReac Type Severity Reaction Status Date / Time amoxicillin (From Augmentin) Allergy Swelling Verified 09/14/25 18:09 clavulanic acid (From Allergy Swelling Verified 09/14/25 18:09 Augmentin) Penicillins Allergy PT UNSURE Verified 09/14/25 18:09 OF REACTION hydromorphone (From Dilaudid) AdvReac Other Verified 09/14/25 18:09 Family History Father Myocardial infarction Surgical History History of ERCP Hx of cholecystectomy S/P appendectomy Social History household members: none Smoking Status: Former smoker ROS ROS ED ROS Narrative see HPI EXAM Physical Exam Narrative Exam Narrative: Vital signs: Reviewed General: Alert and orientedx3. No acute distress HEENT: Head is normocephalic and atraumatic, sinuses nontender, pupils equal round and reactive. Nares are patent. Oropharynx and throat exams normal. Neck: Supple without lymphadenopathy nontender Cardiovascular: Regular rate and rhythm, no murmurs. No rubs or gallops. Normal S1 and S2 Respiratory: Clear to auscultation bilaterally. No wheezes, rales, rhonchi Abdominal: Soft and nontender. Normal bowel sounds. No guarding or rebound. Nonsurgical abdomen Extremities: No tenderness. No bruising. Normal range of motion. Normal sensation. Skin: No rash or redness. Neurological: Cranial nerves II through XII are grossly intact. Normal strength and sensation. Normal cerebellar function The rest of the physical exam is unremarkable Const Vital Signs: 09/14/25 18:09 09/14/25 18:21 09/14/25 20:01 Temperature 97 F L Temperature Source Temporal Pulse Rate 66 68 Respiratory Rate 24 H Respiratory Effort Short of Breath Labored Blood Pressure 134/97 H 135/93 H Blood Pressure Mean 109 107 Pulse Ox 100 99 Oxygen Delivery Method Room Air Room Air Room Air 09/14/25 21:42 Temperature 97 F L Temperature Source Pulse Rate 64 Respiratory Rate 16 Respiratory Effort Blood Pressure 137/93 H Blood Pressure Mean 107 Pulse Ox 95 Oxygen Delivery Method MDM MDM MDM Narrative Medical decision making narrative: Patient is a 64-year-old male presenting to the emergency department with fatigue and shortness of breath with activity for the past several weeks to months. Patient was seen and examined. Vitals are stable. Patient resting in bed comfortably in no acute distress. Patient started on 1 L fluid bolus. Differential includes but is not limited to: Anemia, electrolyte imbalance, thyroid disturbance, CHF, ACS, pneumonia CBC with no leukocytosis and a normal hemoglobin. BMP with no significant electrolyte abnormalities. Liver panel with no abnormalities. Lipase within normal limits. Baseline chronic kidney dysfunction. TSH and magnesium within normal limits. BNP within normal limits. Troponin within normal limits. EKG shows normal sinus rhythm with no ischemic changes. No dysrhythmia. Computer is reading as a flutter which is not evident on the EKG. chest x-ray reviewed by myself and shows no opacities, pneumothorax or wide mediastinum. Radiology read in agreement. Patient was updated on the extensive negative workup for his reported fatigue. He does state he has had it for months denies do not suspect a emergent cause of his symptoms given the chronicity of it as well as the negative workup. States that he did see his primary care doctor and he planned on ordering hormone test which I recommended still be done. All questions answered. Patient discharged from the Emergency Department. I do not feel that the patient's evaluation reveals any acute reason for admission at this time. I instructed them to either follow-up with their primary care physician or promptly return to the Emergency Department for reevaluation should symptoms worsen or new symptoms develop. I explained what symptoms would indicate the need to return to the emergency department. Shared decision making was used. The patient voiced understanding of the treatment plan and is agreeable with it. Clinical impression Dyspnea Fatigue History & Record Review Discussion w/independent historian: Patient Lab Data Attestation: I reviewed the patient's lab results. Labs: Laboratory Results - last 24 hr 09/14/25 09/14/25 18:20 20:15 WBC 9.1 RBC 5.27 Hgb 15.7 Hct 46.1 MCV 87.5 MCH 29.8 MCHC 34.1 RDW Std Deviation 40.0 RDW Coeff of Ghanshyam 12.5 Plt Count 238 MPV 10.3 Immature Gran % (Auto) 0.100 Neut % (Auto) 67.4 Lymph % (Auto) 22.3 [place] % (Auto) 8.7 Eos % (Auto) 0.9 Baso % (Auto) 0.6 Absolute Neuts (auto) 6.1 Absolute Lymphs (auto) 2.03 Nucleated RBC % 0 Sodium 137 Potassium 4.2 Chloride 100 Carbon Dioxide 25.1 Anion Gap 12 BUN 24 H Creatinine 1.34 H Estim Creat Clear Calc 58.21 Est GFR (MDRD) Non-Af 59 L BUN/Creatinine Ratio 17.8 Glucose 115 H Calcium 9.3 Magnesium 2.2 Total Bilirubin 0.41 Direct Bilirubin 0.18 AST 21 ALT 22 Alkaline Phosphatase 82 Troponin T High Sens 13 D Troponin T Hi Sens 2 Hr 9 NT pro BNP II < 36 Total Protein 7.4 Albumin 4.5 Globulin 2.9 Lipase 49 TSH 1.720 Radiography Chest X-Ray - ED: 2 View, Read by ED Physician, Normal, No Acute Disease and No Infiltrates Diagnostic Testing: Clinical Impression(s) from Imaging Studies Chest X-Ray 09/14/25 18:32 IMPRESSION: No focal consolidation. Reading Location: [facility] Discharge Plan Triage Chief Complaint: Shortness of Breath ED Provider: Gerri Mcdowell Dx/Rx/DC Orders Clinical Impression: Dyspnea, Fatigue Instructions: ED Dyspnea, ED Weakness Uncertain Cause Prescriptions: No Action cholecalciferol (vitamin D3) [Vitamin D3] 50 mcg (2,000 unit) Capsule 50 mcg PO DAILY hydroxyzine HCl 10 mg tablet 10 - 20 mg PO TID PRN (Reason: anxiety) lisinopril 30 mg tablet 30 mg PO DAILY Patient Comments: Takes half 15 mg in afternoon and 15 mg at HS. ascorbic acid (vitamin C) [C-500] 500 mg tablet 500 mg PO DAILY Creon 36,000-114,000- 180,000 unit capsule,delayed release(DR/EC) 2 cap PO TIDCM 90 Days Qty: 540 5RF Primary Care Provider: Bobby Fountain Referrals: Bobby Fountain DO [Primary Care Provider, Medical] - As soon as possible Activity Restrictions/Additional Instructions: Your evaluation in the Emergency Department did not reveal any acute reason for admission. However, I want to emphasize that you may be early in the course of a disease process or illness even if it is not present. For this reason you should follow-up within 24 hours for reevaluation with either your primary care physician or if necessary back here in the Emergency Department. You should return to the Emergency Department immediately if your symptoms worsen or new symptoms develop. Print Language: Telugu Disposition Disposition: Home, Self Care Discharge Date/Time: 09/14/25 21:46
[2025-09-14 21:14] LABS: Troponin T High Sens 2 HR 9 ng/L (<=22)
[2025-09-14 21:29] LABS: AST(SGOT) 21 U/L (<=37); Alanine Aminotransfer ALT/SGPT 22 U/L (<=46); Albumin, Serum 4.5 g/dL (3.4-4.8); Alkaline Phosphatase 82 U/L (40-129); Bilirubin, Direct 0.18 mg/dL (0.00-0.30); Globulin 2.9 g/dL (2.2-4.2); Lipase 49 U/L (13-75)
[2025-09-14 21:42] VITALS: BP 137/93; PULSE 64; RESP 16; TEMP 36.1; O2SAT 95
== END 2025-09-14 21:46 | disposition home or self-care (01) ==
PROVIDERS: Emergency Provider Student in an Organized Health Care Education/Training Program; Visit Provider Student in an Organized Health Care Education/Training Program
DX: R06.02 Shortness of breath (principal); Z87.891 Personal history of nicotine dependence; R53.83 Other fatigue; E78.00 Pure hypercholesterolemia, unspecified; I10 Essential (primary) hypertension
CPT/HCPCS: 71046; 80048; 80076; 83690; 83735; 83880; 84443; 84484; 85025; 93005; 96360; 99284; A4216